=== PATIENT | male | born 1965 | race Caucasian/White ===

== ENCOUNTER → 2016-03-05 | Outpatient (CLI) | payer MEDICARE, MEDICAID ==
[2016-03-05 12:55] LABS: ALANINE AMINOTRANSFERASE 29 U/L (21-72); ALBUMIN 4.2 g/dL (3.5-5.0); ALKALINE PHOSPHATASE 57 U/L (38-126); AMYLASE 72 U/L (30-110); ANION GAP 15 (5-19); ASPARTATE AMINO TRANSFERASE 24 U/L (17-59); BILIRUBIN,TOTAL 0.5 mg/dL (0.2-1.3); BLOOD UREA NITROGEN 9 mg/dL (7-20); CALCIUM 9.5 mg/dL (8.4-10.2); CARBON DIOXIDE 24 mmol/L (22-30); CHLORIDE 103 mmol/L (98-107); CREATININE RESULT 0.87 mg/dL (0.52-1.25); GLUCOSE 75 mg/dL (75-110); LIPASE 122.8 U/L (23-300); POTASSIUM 4.5 mmol/L (3.6-5.0); SODIUM 142.4 mmol/L (137-145); TOTAL PROTEIN 7.2 g/dL (6.3-8.2)
== END ==
LOC: OD 10:31
PROVIDERS: ATTEND Physician Assistant Surgical
DX: R10.13 Epigastric pain (principal); K25.9 Gastric ulcer, unspecified as acute or chronic, without hemorrhage or perforation
CPT/HCPCS: 36415; 80053; 82150; 83690

== ENCOUNTER 2016-05-21 11:25 | Inpatient (IN) | payer MEDICARE, MEDICAID ==
[2016-05-21] MEDS ORDERED: ONDANSETRON 4 MG TAB.RAPDIS PO ONE (11:40)
--- NOTE | 2016-05-21 11:41 | ER Document Report ---
ED Medical Screen (RME) - General Stated Complaint: ABDOMINAL PAIN Notes: Patient complains of abdominal pain with vomiting and diarrhea for a couple of days. Denies fever. Has a history of gastric ulcers. Last vomited this morning at 10 AM. I have greeted and performed a rapid initial assessment of this patient. A comprehensive ED assessment and evaluation of the patient, analysis of test results and completion of the medical decision making process will be conducted by additional ED providers. TRAVEL OUTSIDE OF THE [place] IN LAST 30 DAYS: No - Related Data Allergies/Adverse Reactions: aripiprazole [From [employer]] Allergy (Severe, Verified 05/21/16 11:40) "uncontrollable muscle tremors" Past Medical History - Past Medical History Cardiac Medical History: Reports: Hx Hypertension Denies: Hx Heart Murmur Pulmonary Medical History: Endocrine Medical History: Reports: Hx Diabetes Mellitus Type 2 - Since gastric bypass has been able to stop all medications Renal/ Medical History: Reports: Hx Kidney Stones - LEFT , "passed" multiple, ESWL x 2, "laser" surgery x 1 GI Medical History: Reports: Hx Gastroesophageal Reflux Disease Musculoskeltal Medical History: Reports Hx Arthritis Skin Medical History: Reports Hx MRSA Psychiatric Medical History: Reports: Hx Bipolar Disorder, Hx Depression Traumatic Medical History: Reports: Hx Fractures - RT ankle 2010 Infectious Medical History: Past Surgical History: Reports: Hx Abdominal Surgery - Repair of complications from gastric bypass, Hx Appendectomy - 1975, Hx Bowel Surgery - bowel perforation 09/25, Hx Gastric Bypass Surgery - 02/19/13, Hx Orthopedic Surgery - Right below-knee amputation, Hx Tonsillectomy - 1978 - Immunizations Immunizations up to date: Yes Hx Diphtheria, Pertussis, Tetanus Vaccination: Yes Physical Exam - Vital signs Vitals: Temp Pulse Resp BP Pulse Ox 98.1 F 85 18 109/95 H 97 05/21/16 11:37 05/21/16 11:37 05/21/16 11:37 05/21/16 11:37 05/21/16 11:37 - Abdominal Tenderness: Tender - periumbilical area Notes: abd soft Course - Vital Signs Vital signs: Temp Pulse Resp BP Pulse Ox 98.1 F 85 18 109/95 H 97 05/21/16 11:37 05/21/16 11:37 05/21/16 11:37 05/21/16 11:37 05/21/16 11:37
[2016-05-21 12:29] LABS: HEMATOCRIT 43.8 % (37.9-51.0); HEMOGLOBIN 14.4 g/dL (13.5-17.0); HGB HCT DIFFERENCE -0.6; MEAN CORPUSCULAR VOLUME 79 fl (80-97); RED BLOOD COUNT 5.55 10^6/uL (4.35-5.55); RED CELL DISTRIBUTION WIDTH 17.8 % (11.5-14.0); WHITE BLOOD COUNT 22.7 10^3/uL (4.0-10.5)
[2016-05-21 12:35] LABS: APPEARANCE,URINE SLIGHTLY-CLOUDY; BILIRUBIN,URINE MODERATE (NEGATIVE); GLUCOSE, URINE NEGATIVE (NEGATIVE); KETONES,URINE 80 mg/dL (NEGATIVE); LEUKOCYTE ESTERASE,URINE NEGATIVE (NEGATIVE); NITRITE,URINE NEGATIVE (NEGATIVE); PROTEIN,URINE 100 mg/dL (NEGATIVE)
[2016-05-21 12:56] LABS: ALANINE AMINOTRANSFERASE 38 U/L (21-72); ALBUMIN 3.3 g/dL (3.5-5.0); ALKALINE PHOSPHATASE 134 U/L (38-126); ANION GAP 15 (5-19); ASPARTATE AMINO TRANSFERASE 26 U/L (17-59); BILIRUBIN,DIRECT 0.3 mg/dL (0.0-0.4); BILIRUBIN,TOTAL 0.9 mg/dL (0.2-1.3); BLOOD UREA NITROGEN 17 mg/dL (7-20); CALCIUM 9.4 mg/dL (8.4-10.2); CARBON DIOXIDE 26 mmol/L (22-30); CHLORIDE 99 mmol/L (98-107); CREATININE RESULT 1.01 mg/dL (0.52-1.25); GLUCOSE 131 mg/dL (75-110); LIPASE 70.6 U/L (23-300); POTASSIUM 4.1 mmol/L (3.6-5.0); TOTAL PROTEIN 6.4 g/dL (6.3-8.2)
[2016-05-21 13:01] LABS: ANISOCYTOSIS 2+; BAND NEUTROPHILS % (MANUAL) 3 % (3-5); BASOPHILS % (MANUAL) 0 % (0-2); EOSINOPHILS % (MANUAL) 0 % (0-6); HYPOCHROMASIA SLIGHT; LYMPHOCYTES % (MANUAL) 9 % (13-45); OVALOCYTES 2+; POIKILOCYTOSIS 2+; POLYCHROMASIA SLIGHT; TOTAL CELLS COUNTED 100
[2016-05-21] MEDS ORDERED: NORMAL SALINE 1000 ML 1,000 ML IV ONE ×2 (14:15→15:10)
[2016-05-21] MEDS ORDERED: FENTANYL CITRATE INJ/PF 100 MCG/2 ML AMPUL IV ONE (14:19)
--- NOTE | 2016-05-21 14:22 | ER Document Report ---
ED GI/ - General Chief Complaint: Abdominal Pain Stated Complaint: ABDOMINAL PAIN Mode of Arrival: Ambulatory Information source: Patient Notes: Patient presents complaining of abdominal pain that started yesterday and has persisted today. Patient states he's also had nausea, vomiting and diarrhea. Patient reports a previous history of perforated ulcer last year and states that his symptoms today feel similar. Patient reports nausea and vomiting 6 episodes today and diarrhea 6 episodes today. Patient denies any blood in his emesis or stool. Patient denies any fever or urinary symptoms. TRAVEL OUTSIDE OF THE [place] IN LAST 30 DAYS: No - HPI Patient complains to provider of: Abdominal pain, Diarrhea, Vomiting Onset: Yesterday Timing/Duration: Worse Quality of pain: Sharp Pain Level: 5 Location: Epigastric, Other - Periumbilical Associated symptoms: Diarrhea, Loss of appetite, Nausea, Vomiting. denies: Blood in emesis, Blood in stool, Chest pain, Constipation, Dysuria, Fever, Urinary hesitancy, Urinary frequency, Urinary retention, Urinary urgency Exacerbated by: Denies Relieved by: Denies Similar symptoms previously: Yes - perforated ulcer Recently seen / treated by doctor: No - Related Data Allergies/Adverse Reactions: [facility] Adverse Reaction (Severe, Verified 05/21/16 13:53) "uncontrollable muscle tremors" Home Medications: Current Home Medications Atenolol [Tenormin 50 mg Tablet] 50 mg PO DAILY 05/21/16 [History] Escitalopram Oxalate [Lexapro] 40 mg PO DAILY 05/21/16 [History] Furosemide [Lasix] 40 mg PO DAILY 05/21/16 [History] Gabapentin [Neurontin 300 mg Capsule] 600 mg PO TID 05/21/16 [History] Olanzapine [Zyprexa] 40 mg PO DAILY 05/21/16 [History] Omeprazole 40 mg PO DAILY 05/21/16 [History] Promethazine HCl [Phenergan 25 mg Tablet] 25 mg PO Q6 05/21/16 [History] Quetiapine Fumarate [Seroquel] 600 mg PO QHS 05/21/16 [History] Ropinirole HCl [Requip] 0.25 mg PO QID 05/21/16 [History] Sucralfate [Carafate 1 gm Tablet] 1 gm PO BID 05/21/16 [History] Tamsulosin HCl [Flomax] 0.4 mg PO BID 05/21/16 [History] Trazodone HCl [Desyrel] 300 mg PO QHS 05/21/16 [History] Past Medical History - General Information source: Patient - Social History Smoking Status: Never Smoker Chew tobacco use (# tins/day): No Frequency of alcohol use: None Drug Abuse: None Occupation: none Lives with: Alone Family History: CAD, Hypertension Patient has suicidal ideation: No Patient has homicidal ideation: No - Past Medical History Cardiac Medical History: Reports: Hx Hypertension Denies: Hx Heart Murmur Pulmonary Medical History: Endocrine Medical History: Reports: Hx Diabetes Mellitus Type 2 - Since gastric bypass has been able to stop all medications Renal/ Medical History: Reports: Hx Kidney Stones - LEFT , "passed" multiple, ESWL x 2, "laser" surgery x 1. Denies: Hx Peritoneal Dialysis GI Medical History: Reports: Hx Gastroesophageal Reflux Disease, Hx Ulcer Musculoskeltal Medical History: Reports Hx Arthritis Skin Medical History: Reports Hx MRSA Psychiatric Medical History: Reports: Hx Bipolar Disorder, Hx Depression Traumatic Medical History: Reports: Hx Fractures - RT ankle 2011 Infectious Medical History: Past Surgical History: Reports: Hx Abdominal Surgery - Repair of complications from gastric bypass, Hx Appendectomy - 1975, Hx Bowel Surgery - bowel perforation 09/25, Hx Gastric Bypass Surgery - 02/19/13, Hx Orthopedic Surgery - Right below-knee amputation, Hx Tonsillectomy - 1978 - Immunizations Immunizations up to date: Yes Hx Diphtheria, Pertussis, Tetanus Vaccination: Yes Hx Pneumococcal Vaccination: 03/03/11 Review of Systems - Review of Systems Constitutional: No symptoms reported. denies: Fever, Recent illness EENT: No symptoms reported Cardiovascular: No symptoms reported. denies: Chest pain, Dizziness Respiratory: No symptoms reported. denies: Cough, Short of breath Gastrointestinal: Abdominal pain, Diarrhea, Nausea, Vomiting, Poor appetite, Poor fluid intake. denies: Constipation, Blood streaked bowels, Black stools, Rectal bleeding Genitourinary: No symptoms reported. denies: Burning, Dysuria, Flank pain Male Genitourinary: No symptoms reported Musculoskeletal: No symptoms reported. denies: Back pain Skin: No symptoms reported Hematologic/Lymphatic: No symptoms reported Neurological/Psychological: No symptoms reported Physical Exam - Vital signs Vitals: Temp Pulse Resp BP Pulse Ox 98.1 F 85 18 109/95 H 97 05/21/16 11:37 05/21/16 11:37 05/21/16 11:37 05/21/16 11:37 05/21/16 11:37 - General General appearance: Appears well, Alert In distress: None - HEENT Head: Normocephalic, Atraumatic Eyes: Normal Conjunctiva: Normal Nasal: Normal Mouth/Lips: Normal Mucous membranes: Normal Neck: Normal, Supple. No: Lymphadenopathy - Respiratory Respiratory status: No respiratory distress Chest status: Nontender Breath sounds: Normal. No: Rales, Rhonchi, Stridor, Wheezing Chest palpation: Normal - Cardiovascular Rhythm: Regular Heart sounds: S1 appreciated, S2 appreciated Murmur: No - Abdominal Inspection: Other - Scar from previous gastric bypass, right lower quadrant scar Distension: No distension Bowel sounds: Normal Tenderness: Tender - Epigastric, periumbilical Organomegaly: No organomegaly - Back Back: Normal, Nontender. No: CVA tenderness, Vertebra tenderness - Extremities General upper extremity: Normal inspection, Normal strength General lower extremity: Normal strength, Other - Right BKA with prosthesis - Neurological Neuro grossly intact: Yes Cognition: Normal [place] Coma Scale Eye Opening: Spontaneous [place] Coma Scale Verbal: Oriented [place] Coma Scale Motor: Obeys Commands [place] Coma Scale Total: 15 - Psychological Associated symptoms: Normal affect, Normal mood - Skin Skin Temperature: Warm Skin Moisture: Dry Skin Color: Normal Course - Re-evaluation Re-evalutation: 05/21/16 14:[address] Marcelino regarding patient presentation, reviewed patient's diagnostics as well as previous medical history. Recommends CT abdomen and pelvis with oral and IV contrast if concerned about perforated ulcer. 05/21/16 15:05 Radiologist called stating that they noticed free air on abdominal x-ray film. 05/21/16 15:10 Consulted with general surgeon who will be down to see patient. Discussed plan for CT imaging, states patient may have a CAT scan with IV contrast only. Discussed antibiotic choice with Dr. Lozano who advises giving Invanz 1 g IV now. 05/21/16 15:15 Dr. Marcelino updated on patient status and plan of care. 05/21/16 15:51 Dr. Mora evaluated patient and agrees to accept patient to his services for admission. - Vital Signs Vital signs: Temp Pulse Resp BP Pulse Ox 98.1 F 85 20 104/56 L 95 05/21/16 11:37 05/21/16 11:37 05/21/16 17:02 05/21/16 17:02 05/21/16 17:02 - Laboratory Result Diagrams: 05/21/16 11:40 05/21/16 11:40 Laboratory results interpreted by me: 05/21/16 05/21/16 05/21/16 11:40 11:40 11:40 WBC 22.7 H MCV 79 L MCH 26.0 L RDW 17.8 H Seg Neuts % (Manual) 81 H Lymphocytes % (Manual) 9 L Abs Neuts (Manual) 19.1 H Abs Monocytes (Manual) 1.6 H Glucose 131 H Alkaline Phosphatase 134 H Creatine Kinase 22 L Albumin 3.3 L Urine Protein Urine Ketones Urine Bilirubin Urine Urobilinogen 05/21/16 11:45 WBC MCV MCH RDW Seg Neuts % (Manual) Lymphocytes % (Manual) Abs Neuts (Manual) Abs Monocytes (Manual) Glucose Alkaline Phosphatase Creatine Kinase Albumin Urine Protein 100 H Urine Ketones 80 H Urine Bilirubin MODERATE H Urine Urobilinogen 2.0 H 05/21/16 17:46 Labs- Entire Visit 05/21/16 05/21/16 05/21/16 11:40 11:40 11:40 WBC 22.7 H RBC 5.55 Hgb 14.4 Hct 43.8 MCV 79 L MCH 26.0 L MCHC 33.0 RDW 17.8 H Plt Count 302 Total Counted 100 Seg Neutrophils % Not Reportable Seg Neuts % (Manual) 81 H Band Neutrophils % 3 Lymphocytes % Not Reportable Lymphocytes % (Manual) 9 L Monocytes % Not Reportable Monocytes % (Manual) 7 Eosinophils % Not Reportable Eosinophils % (Manual) 0 Basophils % Not Reportable Basophils % (Manual) 0 Absolute Neutrophils Not Reportable Abs Neuts (Manual) 19.1 H Absolute Lymphocytes Not Reportable Abs Lymphs (Manual) 2.0 Absolute Monocytes Not Reportable Abs Monocytes (Manual) 1.6 H Absolute Eosinophils Not Reportable Absolute Eos (Manual) 0.0 Absolute Basophils Not Reportable Abs Basophils (Manual) 0.0 Platelet Comment ADEQUATE Polychromasia SLIGHT Hypochromasia SLIGHT Poikilocytosis 2+ Anisocytosis 2+ Ovalocytes 2+ Sodium 140.0 Potassium 4.1 Chloride 99 Carbon Dioxide 26 Anion Gap 15 BUN 17 Creatinine 1.01 Est GFR ( Amer) > 60 Est GFR (Non-Af Amer) > 60 Glucose 131 H Lactic Acid Calcium 9.4 Magnesium 1.7 Total Bilirubin 0.9 Direct Bilirubin 0.3 Indirect Bilirubin Not Reportable Neonat Total Bilirubin Not Reportable AST 26 ALT 38 Alkaline Phosphatase 134 H Creatine Kinase 22 L CK-MB (CK-2) Troponin I Total Protein 6.4 Albumin 3.3 L Lipase 70.6 Urine Color Urine Appearance Urine pH Ur Specific [place] Urine Protein Urine Glucose (UA) Urine Ketones Urine Blood Urine Nitrite Urine Bilirubin Urine Urobilinogen Ur Leukocyte Esterase Urine WBC (Auto) Urine RBC (Auto) U Hyaline Cast (Auto) Squamous Epi Cells Auto Urine Mucus (Auto) Urine Ascorbic Acid 05/21/16 05/21/16 05/21/16 11:40 11:45 14:30 WBC RBC Hgb Hct MCV MCH MCHC RDW Plt Count Total Counted Seg Neutrophils % Seg Neuts % (Manual) Band Neutrophils % Lymphocytes % Lymphocytes % (Manual) Monocytes % Monocytes % (Manual) Eosinophils % Eosinophils % (Manual) Basophils % Basophils % (Manual) Absolute Neutrophils Abs Neuts (Manual) Absolute Lymphocytes Abs Lymphs (Manual) Absolute Monocytes Abs Monocytes (Manual) Absolute Eosinophils Absolute Eos (Manual) Absolute Basophils Abs Basophils (Manual) Platelet Comment Polychromasia Hypochromasia Poikilocytosis Anisocytosis Ovalocytes Sodium Potassium Chloride Carbon Dioxide Anion Gap BUN Creatinine Est GFR ( Amer) Est GFR (Non-Af Amer) Glucose Lactic Acid 1.3 Calcium Magnesium Total Bilirubin Direct Bilirubin Indirect Bilirubin Neonat Total Bilirubin AST ALT Alkaline Phosphatase Creatine Kinase CK-MB (CK-2) < 0.22 Troponin I < 0.012 Total Protein Albumin Lipase Urine Color PEPE Urine Appearance SLIGHTLY-CLOUDY Urine pH 5.0 Ur Specific [place] 1.040 Urine Protein 100 H Urine Glucose (UA) NEGATIVE Urine Ketones 80 H Urine Blood NEGATIVE Urine Nitrite NEGATIVE Urine Bilirubin MODERATE H Urine Urobilinogen 2.0 H Ur Leukocyte Esterase NEGATIVE Urine WBC (Auto) 14 Urine RBC (Auto) 5 U Hyaline Cast (Auto) 5 Squamous Epi Cells Auto 2 Urine Mucus (Auto) MANY Urine Ascorbic Acid NEGATIVE - Diagnostic Test Radiology reviewed: Reports reviewed Discharge - Discharge Clinical Impression: Vomiting and diarrhea, Bowel perforation Abdominal pain Qualifiers: Abdominal location: unspecified location Qualified Code(s): R10.9 - Unspecified abdominal pain Condition: Stable Disposition: ADMITTED INPATIENT Admitting Provider: Surgicalist Unit Admitted: Surgical Floor
[2016-05-21] MEDS ORDERED: DIPHENHYDRAMINE HCL 50 MG/ML VIAL IV ONE (14:31)
[2016-05-21 15:00] LABS: MAGNESIUM 1.7 mg/dL (1.6-2.3)
[2016-05-21] MEDS ORDERED: HYDROMORPHONE HCL INJ/PF 2 MG/ML AMPULE IV ONE (15:08)
[2016-05-21] MEDS ORDERED: ONDANSETRON HCL INJ/PF 4 MG/2 ML SDV IV ONE (15:08)
[2016-05-21] MEDS ORDERED: ERTAPENEM SODIUM INJ 1 GM VIAL IV ONE (15:10)
[2016-05-21 15:13] LABS: CREATINE KINASE MB < 0.22 ng/mL (<4.55); TROPONIN I < 0.012 ng/mL
[2016-05-21] MEDS ORDERED: ONDANSETRON HCL INJ/PF 4 MG/2 ML SDV IV PRN (16:46)
[2016-05-21] MEDS ORDERED: NORMAL SALINE 500 ML IV PRN (16:46)
[2016-05-21] MEDS ORDERED: PANTOPRAZOLE SODIUM 40 MG VIAL IV SCH (17:00)
[2016-05-21] MEDS: MORPHINE SULFATE 10 MG/ML INJ IV PRN ×2 (17:15→20:06)
[2016-05-21] MEDS: NORMAL SALINE 100 ML with PANTOPRAZOLE SODIUM 80 MG IV PRN ×2 (17:41)
--- NOTE | 2016-05-21 17:58 | HISTORY AND PHYSICAL E ---
History and Physical NAME: YESSY ALMODOVAR : 1965 AGE: 51Y ADMITTED: 05/21/2016 ROOM: ED20 REASON FOR ADMISSION: Abdominal pain. HISTORY OF PRESENT ILLNESS: This 51-year-old male presented to the emergency room complaining of a 2-day history of epigastric and midabdominal pain that started 2 days ago. The patient has had nausea, vomiting and diarrhea x5 each day without fevers or chills. The patient reports a previous history of perforated ulcer last year and that his symptoms today feel similar. The patient reports no history of any blood in his stool or vomitus and no history of coffee ground vomitus. The patient was examined in the ER and found to have epigastric and midabdominal tenderness and white count was 22,000. Plain films showed free air under the diaphragm and because of the history of gastric bypass, a CT scan of the abdomen was ordered which also confirmed the free air in the abdomen. However, the patient is hemodynamically stable without tachycardia. He has no evidence of rebound or guarding and his tenderness is limited to the midabdomen. A surgical referral was made and the patient will be admitted to my service. PAST MEDICAL HISTORY: 1. History of hypertension. 2. History of diabetes mellitus type 2 which has been ameliorated because of the gastric bypass. 3. History of kidney stones that have been passed spontaneously. 4. Laser surgery. 5. ESWL x2. 6. The patient has a history of peritoneal dialysis. 7. History of arthritis. 8. History if bipolar disease and depression. 9. History of right ankle fractures. PAST SURGICAL HISTORY: Includes: 1. Complications from gastric bypass. 2. Appendectomy. 3. Bowel surgery. 4. Bowel perforation in August *------*. 5. Gastric bypass 02/19/2013. 6. Traumatic right below-knee amputation. 7. History of tonsillectomy in 1978. ALLERGIES: The patient has a history of allergy to ABILIFY where he has uncontrolled muscle tremors which were severe and verified 05/21/2016. The patient has a history of bipolar disorder and depression as well. REVIEW OF SYSTEMS: The patient has no symptoms referable to the constitutional, ENT, cardiovascular, or respiratory system. Gastrointestinal as in history of present illness. The patient denies any symptoms referable to the genitourinary, musculoskeletal, integumentary, lymphatic, endocrine or psychiatric systems. PHYSICAL EXAMINATION: GENERAL: A 51-year-old male who is fairly well-nourished, well-developed and in no acute distress. The patient is alert, awake, responsive and is a good historian. The patient is hemodynamically stable and is in no distress. VITAL SIGNS: Temp 98.1, pulse 85, respirations 18, blood pressure 109/95, pulse oximetry 97% on room air. HEENT: Head is normocephalic and atraumatic. PERRLA. EOMI. There is no conjunctival pallor or scleral icterus. Mucous membranes are moist and pink. NECK: Neck is supple without nodes, masses, thyroid, JVD or bruits. Trachea is midline. CHEST: Chest wall shows good excursions. Lungs are clear anteriorly with good entry bilaterally. CARDIOVASCULAR: Pulses regular without murmurs or gallops. ABDOMEN: Soft, flat with epigastric and upper abdominal mid-tenderness with minimal guarding in the upper abdomen, but no rebound. Remainder of his abdomen is benign with no peritoneal signs. There is also periumbilical tenderness. EXTREMITIES: Full range of motion. The patient has a right BKA prosthesis. IMPRESSION: Perforated peptic ulcer with pneumoperitoneum. PLAN: Given the fact that he is hemodynamically stable, in no acute distress and with minimal abdominal findings, we will choose to treat the patient conservatively with antibiotics, *------* drip, observation, pain medication and repeat labs and antibiotics. Should the patient not improve or worsen clinically, then exploratory laparotomy will be performed. DICTATING PHYSICIAN: SIMRAN LING M.D. [id number] Y#: [id number] ID: [id number] JOB#: [id number] ACCT: [id number] cc:SIMRAN LING M.D. >
[2016-05-21] MEDS ORDERED: LEVOFLOXACIN 750 MG/D5W RTU 750 MG/150 ML RTUPB IV SCH (18:00)
--- NOTE | 2016-05-21 18:28 | EKG REPORT ---
SEVERITY:- ABNORMAL ECG - SINUS RHYTHM LEFT VENTRICULAR HYPERTROPHY BORDERLINE T ABNORMALITIES, INFERIOR-LATERAL LEADS : Confirmed by: Cricket Pantoja MD 21-May-2016 18:28:14
[2016-05-21] MEDS: METRONIDAZOLE 500 MG/NS RTU 100 ML IV SCH (18:55)
[2016-05-21] MEDS: LEVOFLOXACIN 750 MG/D5W RTU 750 MG/150 ML RTUPB IV SCH (21:16)
[2016-05-22] MEDS: MORPHINE SULFATE 10 MG/ML INJ IV PRN ×7 (00:48→22:55)
[2016-05-22] MEDS: METRONIDAZOLE 500 MG/NS RTU 100 ML IV SCH ×4 (00:50→18:40)
[2016-05-22] MEDS: NORMAL SALINE 100 ML with PANTOPRAZOLE SODIUM 80 MG IV PRN ×6 (01:39→22:55)
[2016-05-22 06:47] LABS: ABSOLUTE LYMPHOCYTES (AUTO) 0.8 10^3/uL (0.5-4.7); ABSOLUTE MONOCYTES (AUTO) 0.8 10^3/uL (0.1-1.4); ABSOLUTE NEUT (AUTO) 11.2 10^3/uL (1.7-8.2); BASOPHILS % (AUTO) 0.2 % (0-2); HEMATOCRIT 36.3 % (37.9-51.0); HGB HCT DIFFERENCE 0.3; LYMPHOCYTES % (AUTO) 6.3 % (13-45); MEAN CORPUSCULAR HEMOGLOBIN 26.5 pg (27.0-33.4); MEAN CORPUSCULAR HGB CONC 33.7 g/dL (32.0-36.0); MEAN CORPUSCULAR VOLUME 79 fl (80-97); MONOCYTES % (AUTO) 6.3 % (3-13); RED BLOOD COUNT 4.61 10^6/uL (4.35-5.55); RED CELL DISTRIBUTION WIDTH 17.8 % (11.5-14.0); SEGMENTED NEUTROPHILS % (AUTO) 87.2 % (42-78); WHITE BLOOD COUNT 12.8 10^3/uL (4.0-10.5)
[2016-05-22 07:01] LABS: HEMOGLOBIN 12.2 g/dL (13.5-17.0)
[2016-05-22 07:12] LABS: ANION GAP 10 (5-19); BLOOD UREA NITROGEN 18 mg/dL (7-20); CALCIUM 8.4 mg/dL (8.4-10.2); CARBON DIOXIDE 23 mmol/L (22-30); CHLORIDE 107 mmol/L (98-107); CREATININE RESULT 0.81 mg/dL (0.52-1.25); GLUCOSE 100 mg/dL (75-110); POTASSIUM 4.1 mmol/L (3.6-5.0)
[2016-05-22] MEDS: ENOXAPARIN SODIUM INJ 40 MG/0.4 ML DISP.SYRIN SUBCUT SCH (08:34)
[2016-05-22] MEDS: LEVOFLOXACIN 750 MG/D5W RTU 750 MG/150 ML RTUPB IV SCH (21:15)
[2016-05-23] MEDS: METRONIDAZOLE 500 MG/NS RTU 100 ML IV SCH ×4 (00:08→19:00)
[2016-05-23] MEDS: MORPHINE SULFATE 10 MG/ML INJ IV PRN ×5 (02:25→19:05)
--- NOTE | 2016-05-23 09:28 | PDOC PROGRESS REPORT ---
Subjective Progress Note for:: 05/23/16 Subjective:: Still with subxiphoid the an epigastric abdominal pain. Physical Exam Vital Signs: Temp Pulse Resp BP Pulse Ox 98.2 F 66 16 118/68 96 05/23/16 07:48 05/23/16 07:48 05/23/16 07:48 05/23/16 07:48 05/23/16 07:48 Intake & Output 05/22/16 05/23/16 05/24/16 06:59 06:59 06:59 Intake Total 0 Output Total 250 700 Balance -250 -700 Weight 101.1 kg 101.4 kg General appearance: PRESENT: no acute distress, cooperative Respiratory exam: PRESENT: clear to auscultation jorge Cardiovascular exam: PRESENT: RRR GI/Abdominal exam: PRESENT: other - Soft, nondistended, epigastric and subxiphoid abdominal tenderness without peritoneal signs. Results Laboratory Results: 05/22/16 06:06 05/22/16 06:06 05/21/16 18:44 Nasophary (Mrsa Only) MRSA Surveillance Culture - Final MRSA RECOVERED Impressions: Acute Abdomen Series 05/21/16 14:19 IMPRESSION: There appears to be free air under the diaphragm on the right and possibly on the left concerning for perforated viscus. Further investigation warranted. Abdomen/Pelvis CT 05/21/16 15:14 IMPRESSION: 1. Significant amount of intraabdominal free air noted throughout the abdomen most notably in the upper abdomen. Postsurgical changes from prior Estella-en-Y gastric bypass noted. There appears to be few locules air in between in the smaller medial portion of the stomach and the lateral larger portion of the stomach at in the care appearing to connect with the small or portion of the stomach which is connected to the esophagus and small bowel. Question whether this represents a perforated ulcer in this region. 6 thickening of fluid seen in adjacent to the 2 portions of the stomach and as well as along the small bowel limb from the small gastric pouch likely representing either gastric contents or inflammatory fluid. 2. No other significant abnormality identified within the abdomen pelvis. Assessment & Plan - Diagnosis (1) Bowel perforation Is this a current diagnosis for this admission?: YesPlan: Likely at his gastrojejunal anastomosis from his Estella-en-Y gastric bypass in the remote past. Patient had perforation at this site last year which was repaired at [facility]. Patient is stable on the medical management at this time but the likely he will need the revision of his the gastric bypass in light of recurrent perforation. I have discussed his case with Dr. Fletcher at [facility] who has agreed to take him in transfer.
[2016-05-23] MEDS: ENOXAPARIN SODIUM INJ 40 MG/0.4 ML DISP.SYRIN SUBCUT SCH (09:47)
[2016-05-23] MEDS: NORMAL SALINE 100 ML with PANTOPRAZOLE SODIUM 80 MG IV PRN ×2 (09:48)
--- NOTE | 2016-05-23 10:00 | TRANSFER SUMMARY E ---
Transfer Summary NAME: YESSY ALMODOVAR : 1965 AGE: 51Y ADMITTED: 05/21/2016 TRANSFERRED: 05/23/2016 TRANSFER DIAGNOSIS: Perforated bowel, likely at gastrojejunal anastomosis. SECONDARY DIAGNOSES: 1. Hypertension. 2. Kidney stones. 3. Bipolar disease and depression. HOSPITAL COURSE: The patient was noted with free air on radiologic studies. CT scan demonstrated free fluid within the abdomen which tracks along the small bowel, connected to the gastric pouch and extraluminal air at the region of the gastrojejunal anastomosis, all consistent with probable perforation at his gastrojejunal anastomotic site. The patient was stable with no tachycardia, no peritoneal signs and he was managed medically with antibiotics and bowel rest and IV fluids and ppi drip. The patient remained stable. However, he had persistent pain and tenderness in the epigastric and the subxiphoid region. Discussions were held with [facility] concerning transfer. He had his last surgery at [facility] and it is a bariatric center. I have discussed the case with Dr. Fletcher who has agreed to take him in transfer. The patient is now being transferred to [facility] in stable condition. TRANSFER MEDICATIONS: 1. Lovenox 40 mg subcutaneous every morning. 2. Levofloxacin 750 mg daily. 3. Flagyl 500 mg every 6 hours. 4. Morphine 4 mg IV every 4 hours p.r.n. 5. Zofran 4 mg IV every 4 hours p.r.n. 6. Normal saline 100 mL/h intravenously. 7. Pantoprazole intravenous drip. DICTATING PHYSICIAN: SARINA SAEED M.D. [id number] Y#: [id number] ID: [id number] JOB#: [id number] ACCT: [id number] cc:SARINA SAEED M.D. > [facility]
[2016-05-23 15:57] VITALS: BP 108/71
== END 2016-05-23 19:45 | disposition short-term general hospital (02) | DRG 391 ==
LOC: ER 11:25 → EH 16:10 → UNDOADMIN 16:10 → EH 16:47 → 4S 18:17
PROVIDERS: ADMIT Surgery; ATTEND Surgery
DX: K21.9 Gastro-esophageal reflux disease without esophagitis (principal); K28.5 Chronic or unspecified gastrojejunal ulcer with perforation; I10 Essential (primary) hypertension; N20.0 Calculus of kidney; F31.9 Bipolar disorder, unspecified; E11.9 Type 2 diabetes mellitus without complications; M19.90 Unspecified osteoarthritis, unspecified site; B95.62 Methicillin resistant Staphylococcus aureus infection as the cause of diseases classified elsewhere; Z79.899 Other long term (current) drug therapy; Z98.84 Bariatric surgery status; Z89.511 Acquired absence of right leg below knee; Z82.49 Family history of ischemic heart disease and other diseases of the circulatory system
CPT/HCPCS: 36415; 74022; 74177; 80048; 80053; 81001; 82550; 82553; 83605; 83690; 83735; 84484; 85025; 87040; 93005; 93010; 96365; 96375; 99285; J1170; J1200; J1335; J1650; J1956; J2270; J2405; J3010; J7030; J7040; S0119; S0164

== ENCOUNTER 2016-06-26 10:21 | Inpatient (IN) | payer MEDICARE, MEDICAID ==
--- NOTE | 2016-06-26 10:53 | ER Document Report ---
ED Medical Screen (RME) - General Chief Complaint: Abdominal Pain Stated Complaint: VOMITING/DIRECT ADMIT Time seen by provider: 10:51 Mode of Arrival: Ambulatory Information source: Patient Notes: 51-year-old male sent by Dr. Hollie Lerner for direct admission to [facility] and he came to the emergency room because her no IMCU peds. His diagnosis intractable vomiting and upper abdominal made. I will put the orders and the patient is asking for nausea and pain medication. He looks dehydration. TRAVEL OUTSIDE OF THE [place] IN LAST 30 DAYS: No - Related Data Allergies/Adverse Reactions: aripiprazole [From [facility]] Adverse Reaction (Severe, Verified 05/21/16 13:53) "uncontrollable muscle tremors" Past Medical History - Past Medical History Cardiac Medical History: Reports: Hx Hypertension Denies: Hx Heart Murmur Pulmonary Medical History: Endocrine Medical History: Reports: Hx Diabetes Mellitus Type 2 - Since gastric bypass has been able to stop all medications Renal/ Medical History: Reports: Hx Kidney Stones - LEFT , "passed" multiple, ESWL x 2, "laser" surgery x 1. Denies: Hx Peritoneal Dialysis GI Medical History: Reports: Hx Gastroesophageal Reflux Disease, Hx Ulcer Musculoskeltal Medical History: Reports Hx Arthritis Skin Medical History: Reports Hx MRSA Psychiatric Medical History: Reports: Hx Bipolar Disorder, Hx Depression Traumatic Medical History: Reports: Hx Fractures - RT ankle 2010 Infectious Medical History: Past Surgical History: Reports: Hx Abdominal Surgery - Repair of complications from gastric bypass, Hx Appendectomy - 1975, Hx Bowel Surgery - bowel perforation 09/25, Hx Gastric Bypass Surgery - 02/19/13, Hx Orthopedic Surgery - Right below-knee amputation, Hx Tonsillectomy - 1978 - Immunizations Immunizations up to date: Yes Hx Diphtheria, Pertussis, Tetanus Vaccination: Yes Physical Exam - Vital signs Vitals: Temp Pulse Resp BP Pulse Ox 98.3 F 117 H 20 115/75 97 06/26/16 10:06/26/16 10:06/26/16 10:06/26/16 10:06/26/16 10:22 Course - Vital Signs Vital signs: Temp Pulse Resp BP Pulse Ox 98.3 F 117 H 20 115/75 97 06/26/16 10:06/26/16 10:06/26/16 10:06/26/16 10:22 06/26/16 10:22
[2016-06-26] MEDS ORDERED: POTASSI CL 40 MEQ/NS 1L 1,000 ML IV PRN ×2 (10:56→12:17)
[2016-06-26] MEDS ORDERED: ONDANSETRON HCL INJ/PF 4 MG/2 ML SDV IV ONE (10:57)
[2016-06-26] MEDS ORDERED: HYDROMORPHONE HCL INJ/PF 2 MG/ML AMPULE IV ONE (10:57)
[2016-06-26] MEDS ORDERED: NORMAL SALINE 1000 ML 500 ML IV ONE (10:58)
[2016-06-26 11:44] LABS: ABSOLUTE EOSINOPHILS # (AUTO) 0.1 10^3/uL (0.0-0.6); ABSOLUTE LYMPHOCYTES (AUTO) 2.3 10^3/uL (0.5-4.7); ABSOLUTE MONOCYTES (AUTO) 0.6 10^3/uL (0.1-1.4); ABSOLUTE NEUT (AUTO) 5.3 10^3/uL (1.7-8.2); BASOPHILS % (AUTO) 0.2 % (0-2); HEMATOCRIT 42.3 % (37.9-51.0); HEMOGLOBIN 14.2 g/dL (13.5-17.0); HGB HCT DIFFERENCE 0.3; LYMPHOCYTES % (AUTO) 27.9 % (13-45); MEAN CORPUSCULAR HEMOGLOBIN 26.3 pg (27.0-33.4); MEAN CORPUSCULAR HGB CONC 33.6 g/dL (32.0-36.0); MEAN CORPUSCULAR VOLUME 78 fl (80-97); MONOCYTES % (AUTO) 7.8 % (3-13); RED CELL DISTRIBUTION WIDTH 18.3 % (11.5-14.0); SEGMENTED NEUTROPHILS % (AUTO) 63.1 % (42-78); WHITE BLOOD COUNT 8.3 10^3/uL (4.0-10.5)
[2016-06-26 12:04] LABS: ALANINE AMINOTRANSFERASE 30 U/L (21-72); ALKALINE PHOSPHATASE 109 U/L (38-126); ANION GAP 12 (5-19); ASPARTATE AMINO TRANSFERASE 23 U/L (17-59); BILIRUBIN,DIRECT 0.1 mg/dL (0.0-0.4); BILIRUBIN,TOTAL 0.7 mg/dL (0.2-1.3); BLOOD UREA NITROGEN 7 mg/dL (7-20); CALCIUM 9.7 mg/dL (8.4-10.2); CARBON DIOXIDE 27 mmol/L (22-30); CHLORIDE 101 mmol/L (98-107); CREATININE RESULT 0.77 mg/dL (0.52-1.25); GLUCOSE 93 mg/dL (75-110); POTASSIUM 4.1 mmol/L (3.6-5.0); SODIUM 139.9 mmol/L (137-145); TOTAL PROTEIN 7.3 g/dL (6.3-8.2)
[2016-06-26] MEDS ORDERED: LIDOCAINE 2% VISCOUS SOLN 20 ML UDCUP PO ONE (12:06)
[2016-06-26] MEDS ORDERED: MAG HYDROX/AL HYDROX/SIMETH SUSP 30 ML UDCUP PO ONE (12:06)
--- NOTE | 2016-06-26 12:20 | ER Document Report ---
ED GI/ - General Time seen by provider: 12:00 Mode of Arrival: Ambulatory Information source: Patient TRAVEL OUTSIDE OF THE [place] IN LAST 30 DAYS: No - HPI Patient complains to provider of: Abdominal pain, Vomiting Onset: Other - see HPI note Quality of pain: Cramping Associated symptoms: Constipation, Nausea, Urinary retention, Vomiting Similar symptoms previously: Yes Recently seen / treated by doctor: Yes - Dr. Ledbetter <JOSE PATTERSON - Last Filed: 06/26/16 12:32> <LANDRY NEGRON - Last Filed: 06/26/16 13:37> - General Chief Complaint: Abdominal Pain Stated Complaint: VOMITING/DIRECT ADMIT Notes: Patient is a 51 year old male presenting from Dr. Ledbetter's office for a direct admit for IMCU. Patient is being seen in the emergency department due to a policy that states the ED sees patients for direct admit if there is no available rooms. Patient is being admitted for intractable vomiting and epigastric pain. Dr. Ledbetter sent over orders for this patient and they have been started here in the emergency department. Patient has a history of Gastric bypass surgery, diabetes mellitus, and bowel perforation x3. Patient has stopped taking his diabetic medications since losing weight from the gastric bypass surgery. The patient's last bowel perforation was 1 month ago and the patient was sent to [facility]; this was treated with medicine not surgery. Patient states his physicians would like to reverse his gastric bypass surgery within the next 6 months. Patient complains of vomiting, abdominal pain, a nausea but denies fever or diarrhea. Patient states he has not urinated or had a bowel movement in the past 3 days. Patient is allergic to aripiprazole. (JOSE PATTERSON) - Related Data Allergies/Adverse Reactions: aripiprazole [From Abili] Adverse Reaction (Severe, Verified 05/21/16 13:53) "uncontrollable muscle tremors" Past Medical History - General Information source: Patient - Social History Smoking Status: Unknown if Ever Smoked Family History: Reviewed & Not Pertinent, CAD, Hypertension - Past Medical History Cardiac Medical History: Reports: Hx Hypertension Pulmonary Medical History: Endocrine Medical History: Reports: Hx Diabetes Mellitus Type 2 - Since gastric bypass has been able to stop all medications Renal/ Medical History: Reports: Hx Kidney Stones - LEFT , "passed" multiple, ESWL x 2, "laser" surgery x 1 GI Medical History: Reports: Hx Gastroesophageal Reflux Disease, Hx Ulcer Musculoskeltal Medical History: Reports Hx Arthritis Skin Medical History: Reports Hx MRSA Psychiatric Medical History: Reports: Hx Bipolar Disorder, Hx Depression Traumatic Medical History: Reports: Hx Fractures - RT ankle 2010 Infectious Medical History: Past Surgical History: Reports: Hx Abdominal Surgery - Repair of complications from gastric bypass, Hx Appendectomy - 1975, Hx Bowel Surgery - bowel perforation 09/26/2015, May 2016, Hx Gastric Bypass Surgery - 02/19/13, Hx Orthopedic Surgery - Right below-knee amputation, Hx Tonsillectomy - 1978 - Immunizations Immunizations up to date: Yes Hx Diphtheria, Pertussis, Tetanus Vaccination: Yes Hx Pneumococcal Vaccination: 03/03/11 <JOSE PATTERSON - Last Filed: 06/26/16 12:32> Review of Systems - Review of Systems Constitutional: No symptoms reported EENT: No symptoms reported Cardiovascular: No symptoms reported Respiratory: No symptoms reported Gastrointestinal: See HPI, Abdominal pain, Nausea, Vomiting, Constipation Genitourinary: See HPI, Retention Male Genitourinary: No symptoms reported Musculoskeletal: No symptoms reported Skin: No symptoms reported Hematologic/Lymphatic: No symptoms reported Neurological/Psychological: No symptoms reported -: Yes All other systems reviewed and negative <JOSE PATTERSON - Last Filed: 06/26/16 12:32> Physical Exam - Vital signs Interpretation: Tachycardic - General General appearance: Appears well, Alert In distress: Mild - HEENT Head: Normocephalic, Atraumatic Eyes: Normal Pupils: PERRL Mucous membranes: Moist - Respiratory Respiratory status: No respiratory distress Chest status: Nontender Breath sounds: Normal Chest palpation: Normal - Cardiovascular Rhythm: Regular Heart sounds: Normal auscultation Murmur: No - Abdominal Inspection: Normal Distension: No distension Bowel sounds: Normal Tenderness: Tender - epigastric tenderness Organomegaly: No organomegaly - Back Back: Normal, Nontender - Extremities General upper extremity: Normal inspection, Normal ROM, Normal strength General lower extremity: Normal inspection, Normal ROM, Normal strength. No: Edema - Neurological Neuro grossly intact: Yes Cognition: Normal Orientation: AAOx4 Uzair Coma Scale Eye Opening: Spontaneous Ben[place] Coma Scale Verbal: Oriented Uzair Coma Scale Motor: Obeys Commands Benld Coma Scale Total: 15 Speech: Normal - Psychological Associated symptoms: Normal affect, Normal mood - Skin Skin Temperature: Warm Skin Moisture: Dry <JOSE PATTERSON - Last Filed: 06/26/16 12:32> <LANDRY NEGRON - Last Filed: 06/26/16 13:37> - Vital signs Vitals: Temp Pulse Resp BP Pulse Ox 98.3 F 117 H 20 115/75 97 06/26/16 10:22 06/26/16 10:22 06/26/16 10:22 06/26/16 10:22 06/26/16 10:22 Course - Laboratory Result Diagrams: 06/26/16 11:20 06/26/16 11:20 <JOSE PATTERSON - Last Filed: 06/26/16 12:32> - Laboratory Result Diagrams: 06/26/16 11:20 06/26/16 11:20 - Consults Dr. Rios Time consulted: 13:30 Consulted provider: will see as inpatient - He was informed of the normal renal function and dilute urine on this bipolar patient who is known to exaggerate and lie about his symptoms. His bed status was downgraded to a regular medical floor. <LANDRY NEGRON - Last Filed: 06/26/16 13:37> - Re-evaluation Re-evalutation: 06/26/16 13:36 This 51-year-old bipolar patient claims to have not urinated in 3 days. When the nurse to admit him with a catheter he was immediately able to urinate. His urine is dilute. His creatinine is normal. His BUN is low. 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 (LANDRY NEGRON) - Vital Signs Vital signs: Temp Pulse Resp BP Pulse Ox 98.3 F 117 H 20 115/75 97 06/26/16 10:22 06/26/16 10:22 06/26/16 10:22 06/26/16 10:22 06/26/16 10:22 - Laboratory Laboratory results interpreted by me: 06/26/16 06/26/16 11:20 12:44 MCV 78 L MCH 26.3 L RDW 18.3 H Urine Ascorbic Acid 40 H Discharge <JOSE PATTERSON - Last Filed: 06/26/16 12:32> - Discharge Admitting Provider: [facility] Unit Admitted: Medical Floor <LANDRY NEGRON - Last Filed: 06/26/16 13:37> - Discharge Clinical Impression: Abdominal pain, Epigastric pain Vomiting Qualifiers: Vomiting type: unspecified Vomiting Intractability: non-intractable Nausea presence: with nausea Qualified Code(s): R11.2 - Nausea with vomiting, unspecified Bipolar disorder Qualifiers: Active/Remission status: currently active Current bipolar episode type: depressed Current episode severity: mild Qualified Code(s): F31.31 - Bipolar disorder, current episode depressed, mild Condition: Stable Disposition: ADMITTED INPATIENT Scribe Attestation: 06/26/16 13:35 I personally performed the services described in the documentation, reviewed and edited the documentation which was dictated to the scribe in my presence, and it accurately records my words and actions. (LANDRY NEGRON) Scribe Documentation - Scribe Written by Scribe:: Jose Patterson 06/26/16 12:25 acting as scribe for :: Radhames <JOSE PATTERSON - Last Filed: 06/26/16 12:32>
[2016-06-26 13:06] LABS: APPEARANCE,URINE CLEAR; BILIRUBIN,URINE NEGATIVE (NEGATIVE); GLUCOSE, URINE NEGATIVE (NEGATIVE); KETONES,URINE NEGATIVE (NEGATIVE); LEUKOCYTE ESTERASE,URINE NEGATIVE (NEGATIVE); NITRITE,URINE NEGATIVE (NEGATIVE); PROTEIN,URINE NEGATIVE (NEGATIVE); URINE SPECIFIC GRAVITY 1.015; UROBILINOGEN,URINE NEGATIVE mg/dL (<2.0)
[2016-06-26] MEDS: HYDROMORPHONE HCL INJ/PF 2 MG/ML AMPULE IV PRN ×2 (17:42→23:36)
[2016-06-26] MEDS ORDERED: (PENDING PHARMACY ID) (Promethazine Hcl [Promethazine Hcl] 12.5 MG) PO PRN (21:48)
[2016-06-26] MEDS ORDERED: (PENDING PHARMACY ID) (Quetiapine Fumarate [Seroquel] 600 MG) PO SCH (22:00)
[2016-06-26] MEDS ORDERED: OLANZAPINE 40 MG PO SCH (22:00)
[2016-06-26] MEDS ORDERED: (PENDING PHARMACY ID) (Trazodone Hcl [Desyrel] 300 MG) PO SCH (22:00)
[2016-06-26] MEDS: PROMETHAZINE HCL 25 MG TABLET PO PRN (22:55)
[2016-06-26] MEDS: OLANZAPINE 5 MG TABLET PO SCH (23:41)
[2016-06-26] MEDS: SUCRALFATE SUSP 1 GM/10 ML UDCUP PO SCH (23:41)
[2016-06-26] MEDS: TRAZODONE HCL 50 MG TABLET PO SCH (23:41)
[2016-06-26] MEDS: ROPINIROLE HCL 0.25 MG TABLET PO SCH (23:41)
[2016-06-26] MEDS: QUETIAPINE FUMARATE 100 MG TABLET PO SCH (23:41)
[2016-06-27] MEDS: GABAPENTIN 300 MG CAPSULE PO SCH ×3 (06:08→22:38)
[2016-06-27] MEDS: PROMETHAZINE HCL 25 MG TABLET PO PRN ×3 (06:14→18:07)
[2016-06-27] MEDS: HYDROMORPHONE HCL INJ/PF 2 MG/ML AMPULE IV PRN ×3 (06:14→18:08)
[2016-06-27] MEDS ORDERED: (PENDING PHARMACY ID) (Escitalopram Oxalate [Lexapro] 40 MG) PO SCH (08:00)
[2016-06-27] MEDS: NORMAL SALINE 1000 ML 1,000 ML IV PRN (08:22)
[2016-06-27] MEDS: SUCRALFATE SUSP 1 GM/10 ML UDCUP PO SCH ×4 (08:24→21:53)
[2016-06-27] MEDS: ESCITALOPRAM OXALATE 10 MG TABLET PO SCH (08:24)
[2016-06-27] MEDS: ROPINIROLE HCL 0.25 MG TABLET PO SCH ×4 (12:13→22:38)
--- NOTE | 2016-06-27 20:51 | PDOC H&P ---
History of Present Illness Admission Date/PCP: 06/26/16 12:52 MERYL ORNELAS MD History of Present Illness: YESSY ALMODOVAR is a 51 year old male, he came to the office with complaint of persistent vomiting, upper abdominal pain he also said he has not had any urine for 4 days the initial plan was to admit him directly from the office to the hospital but there was no bed available, the nursing supervisor body assembly suggested that patient should be referred to the emergency room. In the emergency room was evaluated the blood work including hemogram and metabolic panel was normal. A CAT scan of the abdomen and pelvis was done with contrast and was negative for any acute pathology. He had gastric bypass surgery on he was recently seen by the bariatric surgeon and the plan is for him to undergo EGD next month and for possible revision of the gastric bypass procedure because it seems that he is having difficulty with his GI function. There is no apparent etiology for his symptoms at this time on is claimed that he has not had any urine in 4 days does not seems to be a realistic claim, there was no abdominal distention and the CAT scan did not show any distended urinary bladder and the blood work was essentially normal Past Medical History Cardiac Medical History: Reports: Hypertension Pulmonary Medical History: GI Medical History: Reports: Gastroesophageal Reflux Disease Musculoskeltal Medical History: Reports: Arthritis Psychiatric Medical History: Reports: Bipolar Disorder, Depression Hematology: Past Surgical History Past Surgical History: Reports: Appendectomy - 1975, Gastric Bypass Surgery - , Orthopedic Surgery - Right below-knee amputation, Tonsillectomy - 1978 Social History Smoking Status: Never Smoker Frequency of Alcohol Use: None Hx Recreational Drug Use: No Drugs: None Hx Prescription Drug Abuse: No Family History Family History: Reviewed & Not Pertinent, CAD, Hypertension Parental Family History Reviewed: Yes Children Family History Reviewed: Yes Sibling(s) Family History Reviewed.: Yes Medication/Allergy Home Medications: Escitalopram Oxalate [Lexapro] 40 mg PO QAM 06/26/16 Gabapentin [Neurontin 300 mg Capsule] 300 mg PO TID 06/26/16 Olanzapine [Zyprexa] 40 mg PO QHS 06/26/16 Promethazine HCl 12.5 mg PO Q6HP PRN 06/26/16 Quetiapine Fumarate [Seroquel] 600 mg PO QHS 06/26/16 Ropinirole HCl [Requip 0.25 mg Tablet] 0.25 mg PO QID 06/26/16 Sucralfate [Carafate Susp 1 gm/10 ml Udcup] 10 ml PO ACHS 06/26/16 Trazodone HCl [Desyrel] 300 mg PO QHS 06/26/16 Allergies/Adverse Reactions: aripiprazole [From Abiliy] Adverse Reaction (Severe, Verified 05/21/16 13:53) "uncontrollable muscle tremors" Review of Systems Constitutional: ABSENT: chills, fever(s), headache(s), weight gain, weight loss Eyes: ABSENT: visual disturbances Ears: ABSENT: hearing changes Cardiovascular: ABSENT: chest pain, dyspnea on exertion, edema, orthropnea, palpitations Respiratory: ABSENT: cough, hemoptysis Gastrointestinal: PRESENT: abdominal pain, vomiting Genitourinary: ABSENT: dysuria, hematuria Musculoskeletal: ABSENT: joint swelling Integumentary: ABSENT: rash, wounds Neurological: ABSENT: abnormal gait, abnormal speech, confusion, dizziness, focal weakness, syncope Psychiatric: ABSENT: anxiety, depression, homidical ideation, suicidal ideation Endocrine: ABSENT: cold intolerance, heat intolerance, menstrual abnormalities, polydipsia, polyuria Hematologic/Lymphatic: ABSENT: easy bleeding, easy bruising, lymphadenopathy Physical Exam Vital Signs: Temp Pulse Resp BP Pulse Ox 98.2 F 53 L 18 140/87 H 99 06/27/16 16:02 06/27/16 16:02 06/27/16 16:02 06/27/16 16:02 06/27/16 16:02 Intake & Output 06/26/16 06/27/16 06/28/16 06:59 06:59 06:59 Intake Total 1600 Output Total 750 800 Balance 850 -800 Weight 94.8 kg General appearance: PRESENT: no acute distress, well-developed, well-nourished Head exam: PRESENT: atraumatic, normocephalic Eye exam: PRESENT: conjunctiva pink, EOMI, PERRLA Ear exam: PRESENT: normal external ear exam Mouth exam: PRESENT: moist, tongue midline Neck exam: PRESENT: full ROM Cardiovascular exam: PRESENT: RRR, +S1, +S2 Vascular exam: PRESENT: normal capillary refill GI/Abdominal exam: PRESENT: normal bowel sounds, soft Rectal exam: PRESENT: deferred Neurological exam: PRESENT: alert, awake, oriented to person, oriented to place , oriented to time, oriented to situation, CN II-XII grossly intact Psychiatric exam: PRESENT: appropriate affect, normal mood Skin exam: PRESENT: dry, intact, warm Results Impressions: Chest X-Ray 06/26/16 10:54 IMPRESSION: NO SIGNIFICANT RADIOGRAPHIC FINDING IN THE CHEST. KUB X-Ray 06/26/16 10:54 IMPRESSION: Nonspecific bowel gas pattern, mild generalized gaseous distension. Abdomen/Pelvis CT 06/27/16 00:00 IMPRESSION: SURGICAL CHANGES. SMALL CORTICAL CYST IN THE RIGHT KIDNEY. OTHERWISE NO SIGNIFICANT OR ACUTE FINDING IN THE ABDOMEN OR PELVIS ON CT SCAN WITH IV CONTRAST. Assessment & Plan - Diagnosis (1) Intractable vomiting Qualifiers: Vomiting type: unspecified Nausea presence: with nausea Qualified Code(s): R11.2 - Nausea with vomiting, unspecified Is this a current diagnosis for this admission?: YesPlan: CT scan of the abdomen and pelvis was negative there is no explanation for the symptoms is manifesting, he has a history of gastric bypass, he was supposed to see the surgeon in [place] on the plan is for upper endoscopy and if there is a lesion he may have the gastric bypass revised (2) Bipolar disorder Qualifiers: Active/Remission status: currently active Current bipolar episode type : mixed Current episode severity: severe Psychotic features: without psychotic features Qualified Code(s): F31.63 - Bipolar disorder, current episode mixed, severe, without psychotic features Is this a current diagnosis for this admission?: Yes (3) gastric bypass surgery status post Is this a current diagnosis for this admission?: Yes
[2016-06-27] MEDS: QUETIAPINE FUMARATE 100 MG TABLET PO SCH (22:38)
[2016-06-27] MEDS: TRAZODONE HCL 50 MG TABLET PO SCH (22:38)
[2016-06-27] MEDS: OLANZAPINE 5 MG TABLET PO SCH (22:38)
[2016-06-28] MEDS: HYDROMORPHONE HCL INJ/PF 2 MG/ML AMPULE IV PRN ×3 (01:00→13:19)
[2016-06-28] MEDS: PROMETHAZINE HCL 25 MG TABLET PO PRN ×3 (01:00→13:18)
[2016-06-28] MEDS: GABAPENTIN 300 MG CAPSULE PO SCH ×2 (06:09→13:19)
[2016-06-28] MEDS: NORMAL SALINE 1000 ML 1,000 ML IV PRN (06:11)
[2016-06-28] MEDS: SUCRALFATE SUSP 1 GM/10 ML UDCUP PO SCH ×3 (09:38→17:36)
[2016-06-28] MEDS: ESCITALOPRAM OXALATE 10 MG TABLET PO SCH (09:39)
[2016-06-28] MEDS: ROPINIROLE HCL 0.25 MG TABLET PO SCH ×3 (09:39→17:36)
--- NOTE | 2016-06-28 19:06 | PDOC DISCHARGE SUMMARY ---
General - Admit/Disc Date/PCP Admission Date/Primary Care Provider: 06/26/16 12:52 MERYL ORNELAS MD Discharge Date: 06/28/16 - Discharge Diagnosis (1) Intractable vomiting Is this a current diagnosis for this admission?: Yes (2) Bipolar disorder Is this a current diagnosis for this admission?: Yes (3) gastric bypass surgery status post Is this a current diagnosis for this admission?: Yes - Additional Information Home Medications: RX: Escitalopram Oxalate [Lexapro] 40 mg PO QAM 06/26/16 RX: Gabapentin [Neurontin 300 mg Capsule] 300 mg PO TID 06/26/16 RX: Olanzapine [Zyprexa] 40 mg PO QHS 06/26/16 RX: Promethazine HCl 12.5 mg PO Q6HP PRN 06/26/16 RX: Quetiapine Fumarate [Seroquel] 600 mg PO QHS 06/26/16 RX: Ropinirole HCl [Requip 0.25 mg Tablet] 0.25 mg PO QID 06/26/16 RX: Sucralfate [Carafate Susp 1 gm/10 ml Udcup] 10 ml PO ACHS 06/26/16 RX: Trazodone HCl [Desyrel] 300 mg PO QHS 06/26/16 History of Present Illness History of Present Illness: YESSY ALMODOVAR is a 51 year old male, he came to the office with complaint of persistent vomiting, upper abdominal pain he also said he has not had any urine for 4 days the initial plan was to admit him directly from the office to the hospital but there was no bed available, the nursing blast furnace auxiliaries supervisor suggested that patient should be referred to the emergency room. In the emergency room was evaluated the blood work including hemogram and metabolic panel was normal. A CAT scan of the abdomen and pelvis was done with contrast and was negative for any acute pathology. He had gastric bypass surgery on he was recently seen by the bariatric surgeon and the plan is for him to undergo EGD next month and for possible revision of the gastric bypass procedure because it seems that he is having difficulty with his GI function. There is no apparent etiology for his symptoms at this time on is claimed that he has not had any urine in 4 days does not seems to be a realistic claim, there was no abdominal distention and the CAT scan did not show any distended urinary bladder and the blood work was essentially normal Hospital Course Hospital Course: Patient was admitted for observation because of intractable vomiting he was treated with IV fluid, there was no witnessed vomiting in the hospital he also had adequate urinary output and he had very good bowel movement Physical Exam Vital Signs: Temp Pulse Resp BP Pulse Ox 98.0 F 80 16 137/94 H 100 06/28/16 15:24 06/28/16 15:24 06/28/16 15:24 06/28/16 15:24 06/28/16 15:24 Intake & Output 06/27/16 06/28/16 06/29/16 06:59 06:59 06:59 Intake Total 1600 1912 1424 Output Total 750 2200 200 Balance 850 -288 1224 Weight 94.8 kg General appearance: PRESENT: no acute distress, well-developed, well-nourished Head exam: PRESENT: atraumatic, normocephalic Eye exam: PRESENT: conjunctiva pink, EOMI, PERRLA. ABSENT: scleral icterus Ear exam: PRESENT: normal external ear exam Mouth exam: PRESENT: moist, tongue midline Neck exam: PRESENT: full ROM Cardiovascular exam: PRESENT: RRR, +S1, +S2 Vascular exam: PRESENT: normal capillary refill GI/Abdominal exam: PRESENT: normal bowel sounds, soft Rectal exam: PRESENT: deferred Extremities exam: PRESENT: right BKA Neurological exam: PRESENT: alert, awake, oriented to person, oriented to place , oriented to time, oriented to situation, CN II-XII grossly intact Psychiatric exam: PRESENT: appropriate affect, normal mood Skin exam: PRESENT: dry, intact, warm Results Laboratory Results: 06/26/16 20:06 Nasophary (Mrsa Only) MRSA Culture - Final MRSA RECOVERED Impressions: Chest X-Ray 06/26/16 10:54 IMPRESSION: NO SIGNIFICANT RADIOGRAPHIC FINDING IN THE CHEST. KUB X-Ray 06/26/16 10:54 IMPRESSION: Nonspecific bowel gas pattern, mild generalized gaseous distension. Abdomen/Pelvis CT 06/27/16 00:00 IMPRESSION: SURGICAL CHANGES. SMALL CORTICAL CYST IN THE RIGHT KIDNEY. OTHERWISE NO SIGNIFICANT OR ACUTE FINDING IN THE ABDOMEN OR PELVIS ON CT SCAN WITH IV CONTRAST.
[2016-06-28 19:25] VITALS: BP 117/78
== END 2016-06-28 20:01 | disposition home or self-care (01) | DRG 392 ==
LOC: ER 10:21 → UNDOADMIN 12:52 → INTOOBSV 12:52 → EH 12:52 → OBSVTOIN 12:52 → EH 15:39 → 3W 15:39 → EH 06-28 18:29 → 3W 06-28 18:29 → UNDODISIN 06-28 20:01
PROVIDERS: ADMIT Internal Medicine; ATTEND Internal Medicine
DX: R11.2 Nausea with vomiting, unspecified (principal); F31.63 Bipolar disorder, current episode mixed, severe, without psychotic features; Q61.01 Congenital single renal cyst; B95.62 Methicillin resistant Staphylococcus aureus infection as the cause of diseases classified elsewhere; I10 Essential (primary) hypertension; K21.9 Gastro-esophageal reflux disease without esophagitis; M19.90 Unspecified osteoarthritis, unspecified site; E11.9 Type 2 diabetes mellitus without complications; E86.0 Dehydration; Z98.84 Bariatric surgery status; Z79.899 Other long term (current) drug therapy; Z89.511 Acquired absence of right leg below knee; Z82.49 Family history of ischemic heart disease and other diseases of the circulatory system; Z88.8 Allergy status to other drugs, medicaments and biological substances
CPT/HCPCS: 36415; 71020; 74000; 74177; 80053; 81001; 85025; 87040; 87070; 87086; G0378; J1170; J2405; J3480; J3490; J7030

== ENCOUNTER 2016-07-11 16:25 | Observation (INO) | payer MEDICAID, MEDICARE ==
[2016-07-11] MEDS ORDERED: PANTOPRAZOLE SODIUM 40 MG VIAL IV PRN (18:07)
[2016-07-11] MEDS ORDERED: PANTOPRAZOLE SODIUM 40 MG VIAL IV ONE (18:07)
[2016-07-11] MEDS ORDERED: HYDROMORPHONE HCL INJ/PF 2 MG/ML AMPULE IV ONE ×3 (18:08→21:44)
[2016-07-11] MEDS ORDERED: ONDANSETRON HCL INJ/PF 4 MG/2 ML SDV IV ONE ×2 (18:08→19:24)
--- NOTE | 2016-07-11 18:09 | ER Document Report ---
ED Medical Screen (RME) - General Mode of Arrival: Ambulatory Information source: Patient TRAVEL OUTSIDE OF THE [place] IN LAST 30 DAYS: No - HPI Patient complains to provider of: blood in vomit <JORGE L JUNG - Last Filed: 07/11/16 18:43> <DAVID NI - Last Filed: 07/11/16 21:03> - General Chief Complaint: Vomiting Stated Complaint: blood in vmoit Time Seen by Provider: 07/11/16 18:03 Notes: Patient presents with complaints of blood in vomit. Patient reports his stomach started hurting around midnight and started vomiting this morning, his last three emesis had bright red blood. Patient denies dizziness and lightheadedness. Patient states he has had some chest pain secondary to vomiting , is pale, and has had some epigastric abdominal pain. Patient states he has vomited blood before due to an ulcer. Patient is on Protonix, denies blood thinners. hx of gastric bypass surgery (JORGE L JUNG) - Related Data Allergies/Adverse Reactions: aripiprazole [From Abili] Adverse Reaction (Severe, Verified 07/11/16 18:06) "uncontrollable muscle tremors" Past Medical History - General Information source: Patient - Social History Cigarette use (# per day): No Chew tobacco use (# tins/day): No Frequency of alcohol use: None Drug Abuse: None - Past Medical History Cardiac Medical History: Reports: Hx Hypertension Denies: Hx Heart Murmur Pulmonary Medical History: Endocrine Medical History: Reports: Hx Diabetes Mellitus Type 2 - Since gastric bypass has been able to stop all medications Renal/ Medical History: Reports: Hx Kidney Stones - LEFT , "passed" multiple, ESWL x 2, "laser" surgery x 1. Denies: Hx Peritoneal Dialysis GI Medical History: Reports: Hx Gastroesophageal Reflux Disease, Hx Ulcer Musculoskeltal Medical History: Reports Hx Arthritis Skin Medical History: Reports Hx MRSA Psychiatric Medical History: Reports: Hx Bipolar Disorder, Hx Depression Traumatic Medical History: Reports: Hx Fractures - RT ankle 2010 Infectious Medical History: Past Surgical History: Reports: Hx Abdominal Surgery - Repair of complications from gastric bypass, Hx Appendectomy - 1975, Hx Bowel Surgery - bowel perforation 09/26/2015, May 2016, Hx Gastric Bypass Surgery - 02/19/13, Hx Orthopedic Surgery - Right below-knee amputation, Hx Tonsillectomy - 1978 - Immunizations Immunizations up to date: Yes Hx Diphtheria, Pertussis, Tetanus Vaccination: Yes <JORGE L JUNG - Last Filed: 07/11/16 18:43> Review of Systems - Review of Systems Gastrointestinal: Blood in vomit <JORGE L JUNG - Last Filed: 07/11/16 18:43> Physical Exam - Respiratory Respiratory status: No respiratory distress - Skin Skin Color: Pale <JORGE L JUNG - Last Filed: 07/11/16 18:43> Course - Laboratory Result Diagrams: 07/11/16 18:20 07/11/16 18:20 <DAVID NI - Last Filed: 07/11/16 21:03> - Vital Signs Vital signs: Temp Pulse Resp BP Pulse Ox 98.3 F 90 19 135/99 H 100 07/11/16 16:38 07/11/16 16:38 07/11/16 16:38 07/11/16 16:38 07/11/16 16:38 - Laboratory Laboratory results interpreted by me: 07/11/16 07/11/16 07/11/16 18:20 18:20 18:20 Hgb 11.1 L Hct 33.7 L MCV 76 L MCH 24.9 L RDW 16.6 H APTT 37.8 H Sodium 136.4 L BUN 6 L Scribe Documentation - Scribe Written by Phillip:: phillip Molina, 07/11/16, 2186 acting as scribe for :: Myranda <JORGE L JUNG - Last Filed: 07/11/16 18:43>
[2016-07-11 18:55] LABS: ABSOLUTE EOSINOPHILS # (AUTO) 0.1 10^3/uL (0.0-0.6); ABSOLUTE LYMPHOCYTES (AUTO) 2.6 10^3/uL (0.5-4.7); ABSOLUTE MONOCYTES (AUTO) 0.4 10^3/uL (0.1-1.4); ABSOLUTE NEUT (AUTO) 3.5 10^3/uL (1.7-8.2); BASOPHILS % (AUTO) 0.5 % (0-2); EOSINOPHILS % (AUTO) 1.8 % (0-6); HEMATOCRIT 33.7 % (37.9-51.0); HEMOGLOBIN 11.1 g/dL (13.5-17.0); HGB HCT DIFFERENCE -0.4; LYMPHOCYTES % (AUTO) 39.3 % (13-45); MEAN CORPUSCULAR HEMOGLOBIN 24.9 pg (27.0-33.4); MEAN CORPUSCULAR HGB CONC 32.9 g/dL (32.0-36.0); MEAN CORPUSCULAR VOLUME 76 fl (80-97); MONOCYTES % (AUTO) 6.1 % (3-13); RED BLOOD COUNT 4.45 10^6/uL (4.35-5.55); RED CELL DISTRIBUTION WIDTH 16.6 % (11.5-14.0); SEGMENTED NEUTROPHILS % (AUTO) 52.3 % (42-78); WHITE BLOOD COUNT 6.7 10^3/uL (4.0-10.5)
[2016-07-11 19:01] LABS: PROTHROMBIN TIME 13.9 SEC (11.4-15.4)
[2016-07-11 19:02] LABS: PARTIAL THROMBOPLASTIN TIME 37.8 SEC (23.5-35.8)
[2016-07-11 19:15] LABS: ALANINE AMINOTRANSFERASE 31 U/L (21-72); ALBUMIN 3.6 g/dL (3.5-5.0); ALKALINE PHOSPHATASE 117 U/L (38-126); ANION GAP 8 (5-19); ASPARTATE AMINO TRANSFERASE 25 U/L (17-59); BILIRUBIN,DIRECT 0.4 mg/dL (0.0-0.4); BILIRUBIN,TOTAL 0.6 mg/dL (0.2-1.3); BLOOD UREA NITROGEN 6 mg/dL (7-20); CALCIUM 9.7 mg/dL (8.4-10.2); CARBON DIOXIDE 26 mmol/L (22-30); CHLORIDE 102 mmol/L (98-107); CREATININE RESULT 0.83 mg/dL (0.52-1.25); GLUCOSE 91 mg/dL (75-110); POTASSIUM 4.5 mmol/L (3.6-5.0); SODIUM 136.4 mmol/L (137-145); TOTAL PROTEIN 7.2 g/dL (6.3-8.2)
[2016-07-11] MEDS ORDERED: PROMETHAZINE HCL 25 MG SUPP.RECT PR ONE (21:43)
[2016-07-11] MEDS ORDERED: NORMAL SALINE 1000 ML 1,000 ML IV ONE (21:45)
--- NOTE | 2016-07-11 21:47 | ER Document Report ---
ED GI/ - General Mode of Arrival: Ambulatory Information source: Patient TRAVEL OUTSIDE OF THE [place] IN LAST 30 DAYS: No - HPI Patient complains to provider of: Abdominal pain, Vomiting - hematemesis Onset: Other - last night Location: Epigastric Associated symptoms: Other - see notes above <YASMEEN AMTHIS - Last Filed: 07/11/16 21:42> <LANDRY NEGRON - Last Filed: 07/11/16 22:33> - General Chief Complaint: Vomiting Stated Complaint: THROWING UP BLOOD Time Seen by Provider: 07/11/16 18:03 Notes: 51 year old male with history of gastric bypass surgery, bleeding GI ulcers, and type II diabetes mellitus presents to the ED complaining of epigastric abdominal pain that started at 00:00 this morning and hematemesis that started at 1200 this afternoon. Patient reports that he has had 3 episodes of vomiting today with blood "mixed in". Patient denies drinking anything red in color or noticing any blood in his stool. Patient last vomited at 1930. Patient denies diarrhea or lightheadedness. Patient is currently taking Protonix, but denies any blood thinning medication. Patient was admitted in May 2015 secondary to GI bleed. (YASMEEN MATHIS) - Related Data Allergies/Adverse Reactions: aripiprazole [From [facility]] Adverse Reaction (Severe, Verified 07/11/16 18:06) "uncontrollable muscle tremors" Past Medical History - General Information source: Patient - Social History Smoking Status: Never Smoker Cigarette use (# per day): No Chew tobacco use (# tins/day): No Frequency of alcohol use: None Drug Abuse: None Family History: CAD, Hypertension Patient has suicidal ideation: No Patient has homicidal ideation: No - Past Medical History Cardiac Medical History: Reports: Hx Hypertension Pulmonary Medical History: Endocrine Medical History: Reports: Hx Diabetes Mellitus Type 2 - Since gastric bypass has been able to stop all medications Renal/ Medical History: Reports: Hx Kidney Stones - LEFT , "passed" multiple, ESWL x 2, "laser" surgery x 1 GI Medical History: Reports: Hx Gastroesophageal Reflux Disease, Hx Ulcer Musculoskeltal Medical History: Reports Hx Arthritis Skin Medical History: Reports Hx MRSA Psychiatric Medical History: Reports: Hx Bipolar Disorder, Hx Depression Traumatic Medical History: Reports: Hx Fractures - RT ankle 2011 Infectious Medical History: Past Surgical History: Reports: Hx Abdominal Surgery - Repair of complications from gastric bypass, Hx Appendectomy - 1975, Hx Bowel Surgery - bowel perforation 09/26/2015, May 2016, Hx Gastric Bypass Surgery - 02/19/13, Hx Orthopedic Surgery - Right below-knee amputation, Hx Tonsillectomy - 1978 - Immunizations Immunizations up to date: Yes Hx Diphtheria, Pertussis, Tetanus Vaccination: Yes Hx Pneumococcal Vaccination: 03/03/11 <YASMEEN MATHIS - Last Filed: 07/11/16 21:42> Review of Systems - Review of Systems Constitutional: No symptoms reported EENT: No symptoms reported Cardiovascular: No symptoms reported. denies: Lightheaded Respiratory: No symptoms reported Gastrointestinal: See HPI, Abdominal pain - epigastric, Vomiting, Blood in vomit. denies: Diarrhea, Black stools, Rectal bleeding Genitourinary: No symptoms reported Male Genitourinary: No symptoms reported Musculoskeletal: No symptoms reported Skin: No symptoms reported Hematologic/Lymphatic: No symptoms reported Neurological/Psychological: No symptoms reported -: Yes All other systems reviewed and negative <YASMEEN MATHIS - Last Filed: 07/11/16 21:42> Physical Exam - General General appearance: Alert In distress: None - HEENT Head: Normocephalic, Atraumatic Eyes: Normal Extraocular movements intact: Yes Pupils: PERRL - Respiratory Respiratory status: No respiratory distress Breath sounds: Normal - Cardiovascular Rhythm: Regular Heart sounds: Normal auscultation - Abdominal Inspection: Normal Distension: No distension Bowel sounds: Normal Tenderness: Tender - epigastric tenderness to palpation - Rectal Tenderness: No Stool: Heme negative Hemorrhoids: None - Back Back: Normal - Extremities General upper extremity: Normal inspection, Normal ROM General lower extremity: Normal ROM. No: Normal inspection - right BKA - Neurological Neuro grossly intact: Yes - Psychological Associated symptoms: Normal affect, Normal mood - Skin Skin Temperature: Warm Skin Moisture: Dry Skin Color: Normal <YASMEEN MATHIS - Last Filed: 07/11/16 21:42> - Rectal Stool: Heme positive, See lab result. No: Heme negative, Black, Bloody <LANDRY NEGRON - Last Filed: 07/11/16 22:33> - Vital signs Vitals: Temp Pulse Resp BP Pulse Ox 98.3 F 90 19 135/99 H 100 07/11/16 16:38 07/11/16 16:38 07/11/16 16:38 07/11/16 16:38 07/11/16 16:38 Course - Laboratory Result Diagrams: 07/11/16 18:20 07/11/16 18:20 <YASMEEN MATHIS - Last Filed: 07/11/16 21:42> - Laboratory Result Diagrams: 07/11/16 18:20 07/11/16 18:20 - Diagnostic Test Radiology reviewed: Image reviewed, Reports reviewed - Chest x-ray is unremarkable and there is no free air under the diaphragm - Consults Dr. Ornelas Time consulted: 22:30 Consulted provider: will see as inpatient <LANDRY NEGRON - Last Filed: 07/11/16 22:33> - Re-evaluation Re-evalutation: 07/11/16 22:32 The patient'S hemoglobin is 11.1 today, it was 14.22 weeks ago. His stool did test heme positive. (LANDRY NEGRON) - Vital Signs Vital signs: Temp Pulse Resp BP Pulse Ox 98.3 F 90 18 131/99 H 98 07/11/16 16:38 07/11/16 16:38 07/11/16 22:01 07/11/16 22:01 07/11/16 22:01 - Laboratory Laboratory results interpreted by me: 07/11/16 07/11/16 07/11/16 18:20 18:20 18:20 Hgb 11.1 L Hct 33.7 L MCV 76 L MCH 24.9 L RDW 16.6 H APTT 37.8 H Sodium 136.4 L BUN 6 L Discharge <YASMEEN MATHIS - Last Filed: 07/11/16 21:42> - Discharge Admitting Provider: Gabriel Unit Admitted: Telemetry <LANDRY NEGRON - Last Filed: 07/11/16 22:33> - Discharge Clinical Impression: Hematemesis/vomiting blood Qualifiers: Nausea presence: with nausea Qualified Code(s): K92.0 - Hematemesis Abdominal pain Qualifiers: Abdominal location: epigastric Qualified Code(s): R10.13 - Epigastric pain Referrals: MERYL ORNELAS MD [Primary Care Provider] - Follow up as needed Scribe Attestation: 07/11/16 22:31 I personally performed the services described in the documentation, reviewed and edited the documentation which was dictated to the scribe in my presence, and it accurately records my words and actions. (LANDRY NEGRON) Scribe Documentation - Scribe Written by Scribe:: Nina Marcum, 07/11/2016 2150 acting as scribe for :: Radhames <YASMEEN MATHIS - Last Filed: 07/11/16 21:42>
[2016-07-11 23:07] LABS: APPEARANCE,URINE CLEAR; BILIRUBIN,URINE NEGATIVE (NEGATIVE); GLUCOSE, URINE NEGATIVE (NEGATIVE); KETONES,URINE NEGATIVE (NEGATIVE); LEUKOCYTE ESTERASE,URINE NEGATIVE (NEGATIVE); NITRITE,URINE NEGATIVE (NEGATIVE); PROTEIN,URINE NEGATIVE (NEGATIVE); URINE SPECIFIC GRAVITY 1.008; UROBILINOGEN,URINE NEGATIVE mg/dL (<2.0)
[2016-07-12] MEDS: PROMETHAZINE HCL 25 MG TABLET PO PRN ×4 (03:01→21:09)
[2016-07-12] MEDS: HYDROMORPHONE HCL INJ/PF 2 MG/ML AMPULE IV PRN ×4 (03:01→21:09)
[2016-07-12 06:09] LABS: ABSOLUTE EOSINOPHILS # (AUTO) 0.1 10^3/uL (0.0-0.6); ABSOLUTE MONOCYTES (AUTO) 0.4 10^3/uL (0.1-1.4); BASOPHILS % (AUTO) 0.7 % (0-2); EOSINOPHILS % (AUTO) 2.5 % (0-6); HEMATOCRIT 29.6 % (37.9-51.0); HGB HCT DIFFERENCE 0.4; LYMPHOCYTES % (AUTO) 44.1 % (13-45); MEAN CORPUSCULAR HEMOGLOBIN 25.5 pg (27.0-33.4); MEAN CORPUSCULAR HGB CONC 33.8 g/dL (32.0-36.0); MEAN CORPUSCULAR VOLUME 76 fl (80-97); MONOCYTES % (AUTO) 8.1 % (3-13); RED BLOOD COUNT 3.91 10^6/uL (4.35-5.55); SEGMENTED NEUTROPHILS % (AUTO) 44.6 % (42-78); WHITE BLOOD COUNT 4.6 10^3/uL (4.0-10.5)
[2016-07-12 06:24] LABS: ANION GAP 7 (5-19); BLOOD UREA NITROGEN 5 mg/dL (7-20); CARBON DIOXIDE 25 mmol/L (22-30); CHLORIDE 104 mmol/L (98-107); CREATININE RESULT 0.86 mg/dL (0.52-1.25); GLUCOSE 79 mg/dL (75-110); POTASSIUM 4.3 mmol/L (3.6-5.0); SODIUM 135.9 mmol/L (137-145)
[2016-07-12] MEDS: SUCRALFATE SUSP 1 GM/10 ML UDCUP PO SCH ×4 (07:58→21:09)
[2016-07-12] MEDS: ESCITALOPRAM OXALATE 10 MG TABLET PO SCH (09:31)
[2016-07-12] MEDS: GABAPENTIN 300 MG CAPSULE PO SCH ×3 (09:31→17:20)
[2016-07-12] MEDS: ROPINIROLE HCL 0.25 MG TABLET PO SCH ×4 (10:19→21:09)
[2016-07-12 12:53] LABS: HEMATOCRIT 32.9 % (37.9-51.0); HEMOGLOBIN 10.9 g/dL (13.5-17.0); HGB HCT DIFFERENCE -0.2; MEAN CORPUSCULAR HEMOGLOBIN 25.1 pg (27.0-33.4); MEAN CORPUSCULAR HGB CONC 33.2 g/dL (32.0-36.0); MEAN CORPUSCULAR VOLUME 75 fl (80-97); RED BLOOD COUNT 4.36 10^6/uL (4.35-5.55); RED CELL DISTRIBUTION WIDTH 16.3 % (11.5-14.0); WHITE BLOOD COUNT 5.6 10^3/uL (4.0-10.5)
[2016-07-12] MEDS ORDERED: LANSOPRAZOLE 30 MG TAB.RAP.DR PO ONE (17:00)
--- NOTE | 2016-07-12 18:17 | PDOC H&P ---
History of Present Illness Admission Date/PCP: 07/12/16 02:02 MERYL ORNELAS MD History of Present Illness: YESSY ALMODOVAR is a 51 year old male, he came to the office because he said he vomited blood, he is status post gastric bypass surgery, he has a history of anastomotic ulcer and he has had episode of GI bleed in the past because of these findings he was advised to go to emergency room for evaluation because I could not admit him directly into the hospital because no bed was immediately available at the time. In the emergency room he was evaluated the hemogram revealed hemoglobin of 11 but is a change from previous hemogram when it was 14. Because of these findings ED physician is suggesting that patient needed to be admitted to the hospital. Past Medical History Cardiac Medical History: Reports: Hypertension Pulmonary Medical History: Endocrine Medical History: Reports: Diabetes Mellitus Type 2 - Since gastric bypass has been able to stop all medications GI Medical History: Reports: Gastroesophageal Reflux Disease Musculoskeltal Medical History: Reports: Arthritis Psychiatric Medical History: Reports: Bipolar Disorder, Depression Hematology: Past Surgical History Past Surgical History: Reports: Appendectomy - 1975, Gastric Bypass Surgery - , Orthopedic Surgery - Right below-knee amputation, Tonsillectomy - 1978 Social History Smoking Status: Never Smoker Frequency of Alcohol Use: None Hx Recreational Drug Use: No Drugs: None Hx Prescription Drug Abuse: No - Advance Directive Resuscitation Status: Full Code Family History Family History: CAD, Hypertension Parental Family History Reviewed: Yes Children Family History Reviewed: Yes Sibling(s) Family History Reviewed.: Yes Medication/Allergy Home Medications: Escitalopram Oxalate [Lexapro] 40 mg PO QAM 06/26/16 Gabapentin [Neurontin 300 mg Capsule] 300 mg PO TID 06/26/16 Olanzapine [Zyprexa] 40 mg PO QHS 06/26/16 Promethazine HCl 12.5 mg PO Q6HP PRN 06/26/16 Quetiapine Fumarate [Seroquel] 600 mg PO QHS 06/26/16 Ropinirole HCl [Requip 0.25 mg Tablet] 0.25 mg PO QID 06/26/16 Sucralfate [Carafate Susp 1 gm/10 ml Udcup] 10 ml PO ACHS 06/26/16 Multivitamin [Multivitamins] 1 tab PO DAILY 05/12/17 Pantoprazole Sodium [Protonix] 40 mg PO BID 07/12/16 Trazodone HCl [Desyrel] 200 mg PO QHS 07/12/16 Allergies/Adverse Reactions: aripiprazole [From [facility]] Adverse Reaction (Severe, Verified 07/11/16 18:06) "uncontrollable muscle tremors" Review of Systems Constitutional: ABSENT: chills, fever(s), headache(s), weight gain, weight loss Eyes: ABSENT: visual disturbances Ears: ABSENT: hearing changes Cardiovascular: ABSENT: chest pain, dyspnea on exertion, edema, orthropnea, palpitations Respiratory: ABSENT: cough, hemoptysis Gastrointestinal: PRESENT: abdominal pain, hematemesis Genitourinary: ABSENT: dysuria, hematuria Musculoskeletal: ABSENT: joint swelling Integumentary: ABSENT: rash, wounds Neurological: ABSENT: abnormal gait, abnormal speech, confusion, dizziness, focal weakness, syncope Psychiatric: ABSENT: anxiety, depression, homidical ideation, suicidal ideation Endocrine: ABSENT: cold intolerance, heat intolerance, menstrual abnormalities, polydipsia, polyuria Hematologic/Lymphatic: ABSENT: easy bleeding, easy bruising, lymphadenopathy Physical Exam Vital Signs: Temp Pulse Resp BP Pulse Ox 97.2 F 74 17 132/100 H 99 07/12/16 10:57 07/12/16 15:20 07/12/16 15:20 07/12/16 15:20 07/12/16 15:20 Intake & Output 07/11/16 07/12/16 07/13/16 06:59 06:59 06:59 Intake Total 0 600 Output Total 0 1150 Balance 0 -550 General appearance: PRESENT: no acute distress, well-developed, well-nourished Head exam: PRESENT: atraumatic, normocephalic Eye exam: PRESENT: conjunctiva pink, EOMI, PERRLA Ear exam: PRESENT: normal external ear exam Mouth exam: PRESENT: moist, tongue midline Neck exam: PRESENT: full ROM Respiratory exam: PRESENT: clear to auscultation jorge Cardiovascular exam: PRESENT: RRR, +S1, +S2 Vascular exam: PRESENT: normal capillary refill GI/Abdominal exam: PRESENT: normal bowel sounds, soft Rectal exam: PRESENT: deferred Neurological exam: PRESENT: alert, awake, oriented to person, oriented to place , oriented to time, oriented to situation, CN II-XII grossly intact Psychiatric exam: PRESENT: appropriate affect, normal mood Skin exam: PRESENT: dry, intact, warm. ABSENT: cyanosis, rash Results Laboratory Results: 07/12/16 12:33 07/12/16 05:32 07/12/16 07/12/16 07/12/16 05:32 05:32 12:33 WBC 4.6 5.6 RBC 3.91 L 4.36 Hgb 10.0 L 10.9 L Hct 29.6 L 32.9 L MCV 76 L 75 L MCH 25.5 L 25.1 L MCHC 33.8 33.2 RDW 16.0 H 16.3 H Plt Count 311 323 Seg Neutrophils % 44.6 Lymphocytes % 44.1 Monocytes % 8.1 Eosinophils % 2.5 Basophils % 0.7 Absolute Neutrophils 2.0 Absolute Lymphocytes 2.0 Absolute Monocytes 0.4 Absolute Eosinophils 0.1 Absolute Basophils 0.0 Sodium 135.9 L Potassium 4.3 Chloride 104 Carbon Dioxide 25 Anion Gap 7 BUN 5 L Creatinine 0.86 Est GFR ( Amer) > 60 Est GFR (Non-Af Amer) > 60 Glucose 79 Calcium 9.0 Impressions: Chest X-Ray 07/11/16 18:07 IMPRESSION: No acute findings. Assessment & Plan - Diagnosis (1) Hematemesis Qualifiers: Nausea presence: with nausea Qualified Code(s): K92.0 - Hematemesis ; R11.0 - Nausea Is this a current diagnosis for this admission?: YesPlan: Patient is admitted to the hospital for observation , follow-up hemogram, there is no active GI bleed at this time and there is no indication for blood transfusion at this time (2) gastric bypass surgery status post Is this a current diagnosis for this admission?: Yes
--- NOTE | 2016-07-12 18:33 | PDOC PROGRESS REPORT ---
Subjective Progress Note for:: 07/12/16 Subjective:: He was seen by the bedside ,the hemoglobin is dropping, he probably need EGD before discharge, unfortunately no GI physician is on-call Physical Exam Vital Signs: Temp Pulse Resp BP Pulse Ox 97.2 F 74 17 132/100 H 99 07/12/16 10:57 07/12/16 15:20 07/12/16 15:20 07/12/16 15:20 07/12/16 15:20 Intake & Output 07/11/16 07/12/16 07/13/16 06:59 06:59 06:59 Intake Total 0 600 Output Total 0 1150 Balance 0 -550 General appearance: PRESENT: no acute distress Head exam: PRESENT: atraumatic, normocephalic Neck exam: PRESENT: full ROM Respiratory exam: PRESENT: clear to auscultation jorge Cardiovascular exam: PRESENT: RRR, +S1, +S2 Vascular exam: PRESENT: normal capillary refill GI/Abdominal exam: PRESENT: normal bowel sounds, soft Rectal exam: PRESENT: deferred Neurological exam: PRESENT: alert, awake, oriented to person, oriented to place , oriented to time, oriented to situation, CN II-XII grossly intact Psychiatric exam: PRESENT: appropriate affect, normal mood Skin exam: PRESENT: dry, intact, warm. ABSENT: cyanosis, rash Results Laboratory Results: 07/12/16 12:33 07/12/16 05:32 07/12/16 07/12/16 07/12/16 05:32 05:32 12:33 WBC 4.6 5.6 RBC 3.91 L 4.36 Hgb 10.0 L 10.9 L Hct 29.6 L 32.9 L MCV 76 L 75 L MCH 25.5 L 25.1 L MCHC 33.8 33.2 RDW 16.0 H 16.3 H Plt Count 311 323 Seg Neutrophils % 44.6 Lymphocytes % 44.1 Monocytes % 8.1 Eosinophils % 2.5 Basophils % 0.7 Absolute Neutrophils 2.0 Absolute Lymphocytes 2.0 Absolute Monocytes 0.4 Absolute Eosinophils 0.1 Absolute Basophils 0.0 Sodium 135.9 L Potassium 4.3 Chloride 104 Carbon Dioxide 25 Anion Gap 7 BUN 5 L Creatinine 0.86 Est GFR ( Amer) > 60 Est GFR (Non-Af Amer) > 60 Glucose 79 Calcium 9.0 Impressions: Chest X-Ray 05/11/17 18:07 IMPRESSION: No acute findings. Assessment & Plan - Diagnosis (1) Hematemesis Qualifiers: Nausea presence: with nausea Qualified Code(s): K92.0 - Hematemesis Is this a current diagnosis for this admission?: Yes (2) gastric bypass surgery status post Is this a current diagnosis for this admission?: Yes
[2016-07-12] MEDS: OLANZAPINE 5 MG TABLET PO SCH (21:09)
[2016-07-12] MEDS: QUETIAPINE FUMARATE 100 MG TABLET PO SCH (21:09)
[2016-07-12] MEDS: TRAZODONE HCL 50 MG TABLET PO SCH (21:19)
[2016-07-12] MEDS ORDERED: PANTOPRAZOLE SODIUM 40 MG VIAL IV SCH (22:00)
[2016-07-13] MEDS: PROMETHAZINE HCL 25 MG TABLET PO PRN ×3 (06:19→19:33)
[2016-07-13] MEDS: HYDROMORPHONE HCL INJ/PF 2 MG/ML AMPULE IV PRN ×3 (06:19→19:32)
[2016-07-13] MEDS: SUCRALFATE SUSP 1 GM/10 ML UDCUP PO SCH ×4 (09:58→21:00)
[2016-07-13] MEDS: ESCITALOPRAM OXALATE 10 MG TABLET PO SCH (09:59)
[2016-07-13] MEDS: LANSOPRAZOLE 30 MG TAB.RAP.DR PO SCH ×2 (09:59→15:45)
[2016-07-13] MEDS: GABAPENTIN 300 MG CAPSULE PO SCH ×3 (09:59→17:19)
[2016-07-13] MEDS: ROPINIROLE HCL 0.25 MG TABLET PO SCH ×4 (10:00→21:00)
--- NOTE | 2016-07-13 13:49 | PDOC PROGRESS REPORT ---
Subjective Progress Note for:: 07/13/16 Subjective:: Patient was admitted because of hematemesis, he has not had any episode of hematemesis since admission, the hemoglobin has been decreasing since admission , he was admitted for observation but he stated that he would like to have the upper endoscopy done before discharge because if he is to have the upper endoscopy done outpatient, it would be too expensive for him, financially cannot afford it is to presently on clear liquid diet Physical Exam Vital Signs: Temp Pulse Resp BP Pulse Ox 97.5 F 106 H 18 104/81 99 07/13/16 12:44 07/13/16 12:44 07/13/16 12:44 07/13/16 12:44 07/13/16 12:44 Intake & Output 07/12/16 07/13/16 07/14/16 06:59 06:59 06:59 Intake Total 0 1200 Output Total 0 2175 Balance 0 -975 General appearance: PRESENT: no acute distress Eye exam: PRESENT: PERRLA Respiratory exam: PRESENT: clear to auscultation jorge Cardiovascular exam: PRESENT: +S1, +S2 GI/Abdominal exam: PRESENT: soft Neurological exam: PRESENT: alert, CN II-XII grossly intact Results Laboratory Results: 07/12/16 12:33 07/12/16 05:32 Impressions: Chest X-Ray 07/11/16 18:07 IMPRESSION: No acute findings. Assessment & Plan - Diagnosis (1) Hematemesis Qualifiers: Nausea presence: with nausea Qualified Code(s): K92.0 - Hematemesis Is this a current diagnosis for this admission?: Yes (2) gastric bypass surgery status post Is this a current diagnosis for this admission?: Yes - Plan Summary Plan Summary: Continue present treatment
[2016-07-13 14:19] LABS: ABSOLUTE EOSINOPHILS # (AUTO) 0.1 10^3/uL (0.0-0.6); ABSOLUTE LYMPHOCYTES (AUTO) 2.1 10^3/uL (0.5-4.7); ABSOLUTE MONOCYTES (AUTO) 0.3 10^3/uL (0.1-1.4); BASOPHILS % (AUTO) 0.3 % (0-2); EOSINOPHILS % (AUTO) 1.7 % (0-6); HEMATOCRIT 36.1 % (37.9-51.0); HEMOGLOBIN 11.7 g/dL (13.5-17.0); LYMPHOCYTES % (AUTO) 31.5 % (13-45); MEAN CORPUSCULAR HEMOGLOBIN 24.9 pg (27.0-33.4); MEAN CORPUSCULAR HGB CONC 32.5 g/dL (32.0-36.0); MEAN CORPUSCULAR VOLUME 77 fl (80-97); MONOCYTES % (AUTO) 5.1 % (3-13); RED BLOOD COUNT 4.71 10^6/uL (4.35-5.55); RED CELL DISTRIBUTION WIDTH 16.3 % (11.5-14.0); SEGMENTED NEUTROPHILS % (AUTO) 61.4 % (42-78); WHITE BLOOD COUNT 6.5 10^3/uL (4.0-10.5)
[2016-07-13] MEDS: DIPHENOXYLATE HCL/ATROP SULF 2.5-0.025 MG TABLET PO PRN (17:20)
[2016-07-13] MEDS: QUETIAPINE FUMARATE 100 MG TABLET PO SCH (21:00)
[2016-07-13] MEDS: OLANZAPINE 5 MG TABLET PO SCH (21:00)
[2016-07-13] MEDS: TRAZODONE HCL 50 MG TABLET PO SCH (21:00)
[2016-07-14] MEDS: HYDROMORPHONE HCL INJ/PF 2 MG/ML AMPULE IV PRN ×4 (04:35→22:09)
[2016-07-14] MEDS: PROMETHAZINE HCL 25 MG TABLET PO PRN ×2 (04:35→22:09)
[2016-07-14] MEDS: LANSOPRAZOLE 30 MG TAB.RAP.DR PO SCH ×2 (08:32→16:32)
[2016-07-14] MEDS: ROPINIROLE HCL 0.25 MG TABLET PO SCH ×4 (08:32→21:00)
[2016-07-14] MEDS: GABAPENTIN 300 MG CAPSULE PO SCH ×3 (08:32→18:08)
[2016-07-14] MEDS: DIPHENOXYLATE HCL/ATROP SULF 2.5-0.025 MG TABLET PO PRN ×3 (08:32→20:55)
[2016-07-14] MEDS: SUCRALFATE SUSP 1 GM/10 ML UDCUP PO SCH ×4 (08:32→21:01)
[2016-07-14] MEDS: ESCITALOPRAM OXALATE 10 MG TABLET PO SCH (08:33)
[2016-07-14] MEDS: ONDANSETRON HCL INJ/PF 4 MG/2 ML SDV IV PRN ×2 (10:13→16:32)
--- NOTE | 2016-07-14 14:41 | PDOC PROGRESS REPORT ---
Subjective Progress Note for:: 07/14/16 Subjective:: Patient was admitted because of hematemesis, he has not had any episode of hematemesis since admission, the hemoglobin has been decreasing since admission , he was admitted for observation but he stated that he would like to have the upper endoscopy done before discharge because if he is to have the upper endoscopy done outpatient, it would be too expensive for him, financially cannot afford it is to presently on clear liquid diet. The diet will be advanced to regular solid, there is no GI track service person over the weekend I explained this to him on he was brought in for observation Physical Exam Vital Signs: Temp Pulse Resp BP Pulse Ox 97.3 F 87 18 118/74 100 07/14/16 11:06 07/14/16 11:06 07/14/16 11:06 07/14/16 11:06 07/14/16 11:06 Intake & Output 07/13/16 07/14/16 07/15/16 06:59 06:59 06:59 Intake Total 1200 2154 Output Total 2175 2865 Balance -975 -711 General appearance: PRESENT: no acute distress, well-developed, well-nourished Head exam: PRESENT: atraumatic, normocephalic Eye exam: PRESENT: conjunctiva pink, EOMI, PERRLA. ABSENT: scleral icterus Ear exam: PRESENT: normal external ear exam Mouth exam: PRESENT: moist, tongue midline Neck exam: PRESENT: full ROM Cardiovascular exam: PRESENT: RRR, +S1, +S2 Pulses: PRESENT: normal dorsalis pedis pul, +2 pedal pulses bilateral Vascular exam: PRESENT: normal capillary refill GI/Abdominal exam: PRESENT: normal bowel sounds, soft Rectal exam: PRESENT: deferred Neurological exam: PRESENT: alert, awake, oriented to person, oriented to place , oriented to time, oriented to situation, CN II-XII grossly intact. ABSENT: motor sensory deficit Psychiatric exam: PRESENT: appropriate affect, normal mood Skin exam: PRESENT: dry, intact, warm Results Laboratory Results: 07/13/16 14:10 07/12/16 05:32 07/12/16 02:15 Nasophary (Mrsa Only) MRSA Surveillance Culture - Final MRSA RECOVERED Impressions: Chest X-Ray 07/11/16 18:07 IMPRESSION: No acute findings. Assessment & Plan - Diagnosis (1) Hematemesis Qualifiers: Nausea presence: with nausea Qualified Code(s): K92.0 - Hematemesis Is this a current diagnosis for this admission?: Yes (2) gastric bypass surgery status post Is this a current diagnosis for this admission?: Yes
[2016-07-14] MEDS: QUETIAPINE FUMARATE 100 MG TABLET PO SCH (21:00)
[2016-07-14] MEDS: TRAZODONE HCL 50 MG TABLET PO SCH (21:00)
[2016-07-14] MEDS: OLANZAPINE 5 MG TABLET PO SCH (21:01)
[2016-07-15] MEDS: PROMETHAZINE HCL 25 MG TABLET PO PRN (04:11)
[2016-07-15] MEDS: HYDROMORPHONE HCL INJ/PF 2 MG/ML AMPULE IV PRN ×3 (04:12→16:20)
--- NOTE | 2016-07-15 09:49 | Physician Advisory Note ---
Physician Advisor ProgressNote .: [facility] medical record for this patient. Physician Advisor Statement: Possible documentation opportunities if attending agrees: 1. "possible anemia of acute blood loss due to GI bleeding, suspected from ____ " [recurrent anastomotic ulcer related to prior gastric bypass?] - Hgb 11 (was 14 on 06/26/2016) 2. "mild hyponatremia, likely due to " 3. "Medical necessity": see below. 4. 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 Please also document each day the potential clinical problems you are concerned could occur if pt not kept in hospital for tx at this time. (These points are rosenbaum - if present in each note, attending's status decision should be sufficiently supported.) Discussion: 51yo male w/ chronic co-morbidities including gastric bypass 2012 w/repair of complications, bowel perf surgery 08/2105, adm for bleeding anastomotic GI ulcer 2015, DM-2, Rt BKA, HTN, kidney stones, bipolar dep - presented 07/11 PM to ED w/06/05 epigastric abd pain, hematemesis (+) HR 90->71, RR19-25, BP 135/99, WBC 6.7, Hgb 11.1 (was 14.2 on 06/26/2016), Na 136.4, BUN 6, Cr 0.83, glc 91, hemoccult (+) Attending ordered Status: This Medicare pt came in w/nausea & hematemesis, 3 unit drop in Hgb, Hem+ stool , but not actively bleeding at time of arrival. Appropriate to bring in as Outpt Obs. On day 2, attending documented need for EGD before d/c, but no GI information assurance at the time - therefore the 2nd MN appears to be due to delay of care, which is not a reason to make pt Inpt. That AM, pt's Hgb was significantly lower than before, but on re-check that day, it was nearly as high as it was at first, which was reassuring. On day 3, 07/13, pt without further hematemesis, abd soft, tolerating clear liquids. Still hyponatremic, but attending has not commented on this to indicate whether this concerns him or is a non-concern. No GI dr to do EGD, pt wanting EGD before d/c rather than going home first - this MN also appears to be delay of care/patient convenience, which is not a reason [facility] will cover Inpt status. - However, on 07/13, after consistently having a HR 60s-70s with BP almost exclusively 130s/90 until that point, pt developed a persistent tachycardia of 90s-120s, with recurrent drops in BP, to the 90s/100s/60s-70s, repeatedly. If this vital sign instability concerned attending, & this concern was documented with what it might indicate clinically, it could be a valid clinical reason to make pt Inpt status at that point. On 07/14, pt with no hematemesis or melena since arrival, Hgb back in the 11s without transfusion, attending advancing diet & appearing to be awaiting GI That night appears to be "delay of care" again, not a reason for Inpt status. A pt wanting to stay longer for a convenience/financial reason is not sufficient to make a pt Inpt status - BUT, if this same pt evidences or develops a valid clinical reason to need ongoing hospital tx & monitoring in hospital setting that is medically reasonable & necessary to protect pt's health , safety, & medical condition, they may still qualify for Inpt status. In this case, the attending must make a very convincing argument for Inpt status need for that to be considered appropriate for this stay. As documentation stands at present, appears appropriate only for outpt status. Thanks for your help with documentation accuracy/specificity improvement! Nimco Aviles MD [facility] Physician Advisor, Fellow of Hospital Medicine
[2016-07-15] MEDS: GABAPENTIN 300 MG CAPSULE PO SCH ×3 (10:01→17:17)
[2016-07-15] MEDS: SUCRALFATE SUSP 1 GM/10 ML UDCUP PO SCH ×3 (10:01→16:20)
[2016-07-15] MEDS: ESCITALOPRAM OXALATE 10 MG TABLET PO SCH (10:01)
[2016-07-15] MEDS: LANSOPRAZOLE 30 MG TAB.RAP.DR PO SCH ×2 (10:02→16:20)
[2016-07-15] MEDS: ROPINIROLE HCL 0.25 MG TABLET PO SCH ×3 (10:07→17:17)
[2016-07-15] MEDS ORDERED: DIPHENHYDRAMINE HCL 50 MG/ML VIAL ONE (12:38)
[2016-07-15] MEDS ORDERED: NALOXONE HCL INJ/PF 0.4 MG/1 ML SDV ONE (12:38)
[2016-07-15] MEDS ORDERED: ONDANSETRON HCL INJ/PF 4 MG/2 ML SDV ONE (12:38)
[2016-07-15] MEDS ORDERED: FLUMAZENIL INJ 0.5 MG/5 ML VIAL IV ONE (12:39)
[2016-07-15] MEDS ORDERED: EPINEPHRINE INJ 1 MG/10 ML DISP.SYRIN ONE (12:39)
[2016-07-15] MEDS ORDERED: FENTANYL CITRATE INJ/PF 100 MCG/2 ML AMPUL ONE (12:39)
[2016-07-15] MEDS ORDERED: GLUCAGON,HUMAN RECOMB 1 MG INJ ONE (12:39)
[2016-07-15] MEDS: MIDAZOLAM 2 MG/2 ML INJ ONE ×2 (12:55→12:59)
--- NOTE | 2016-07-15 13:53 | Operative Report ---
Operative Report DATE OF SURGERY: 07/15/16 Operative Report: The risks benefits and alternatives of the procedure explained to the patient in detail and informed consent is obtained .A GIF Olympus video scope was inserted into the patient's mouth and hypopharynx ,the esophagus is identified intubated and insufflated, the scope was then advanced through the esophagus stomach and duodenum ,retroflexion maneuver is done, the esophagus stomach and first and second portions of the duodenum examined PREOPERATIVE DIAGNOSIS: GI bleeding POSTOPERATIVE DIAGNOSIS: Status post gastric bypass. Has an anastomotic ulcer. Clean base and no active bleeding, biopsies obtained OPERATION: EGD with biopsy SURGEON: GODFREY ALLEN ANESTHESIA: Moderate Sedation - 4 mg of Versed, 50 g of fentanyl. Conscious sedation [id number] minutes. TISSUE REMOVED OR ALTERED: Gastric mucosal specimen obtained COMPLICATIONS: None. ESTIMATED BLOOD LOSS: none. INTRAOPERATIVE FINDINGS: As noted above. PROCEDURE: Patient tolerated the procedure well. No immediate postprocedure complications are noted. Patient is discharged in good condition. Discharge date 07/15/2016. Discharge diet: Regular. Discharge activity: Regular. 2-3 week follow-up to discuss findings. We'll await on biopsies. Patient is instructed to call the office or proceed to the emergency room should there be any further problems or questions.
--- NOTE | 2016-07-15 14:00 | PDOC CONSULTATION ---
Consultation Consult Date: 07/14/16 Attending physician:: GODFREY ALLEN Consult reason:: hematemesis History of Present Illness Admission Date/PCP: 07/12/16 02:02 MERYL ORNELAS MD History of Present Illness: patient was admitted over the weekend for observation and possible GI bleeding patient presented to his primary care office does have a history of a gastric bypass had an anastomotic ulcer in the past patient went to ED, was noted to have a drop of her Hgb of about 3 gms patient states has abdominal pain in the epigastric region some mild nausea and had vomiting patient denies any use of NSAIDS does have some early satiety patient will need EGD will make NPO and proceed in the am. Past Medical History Cardiac Medical History: Reports: Hypertension Denies: Heart Murmur Pulmonary Medical History: Neurological Medical History: Denies: Seizures Endocrine Medical History: Reports: Diabetes Mellitus Type 2 - Since gastric bypass has been able to stop all medications GI Medical History: Reports: Gastroesophageal Reflux Disease Musculoskeltal Medical History: Reports: Arthritis Psychiatric Medical History: Reports: Bipolar Disorder, Depression Hematology: Past Surgical History Past Surgical History: Reports: Appendectomy - 1975, Gastric Bypass Surgery - , Orthopedic Surgery - Right below-knee amputation, Tonsillectomy - 1978 Social History Smoking Status: Never Smoker Frequency of Alcohol Use: None Hx Recreational Drug Use: No Drugs: None Hx Prescription Drug Abuse: No - Advance Directive Resuscitation Status: Full Code Family History Family History: CAD, Hypertension Parental Family History Reviewed: Yes Children Family History Reviewed: Unknown Sibling(s) Family History Reviewed.: Unknown Medication/Allergy Home Medications: Escitalopram Oxalate [Lexapro] 40 mg PO QAM 06/26/16 Gabapentin [Neurontin 300 mg Capsule] 300 mg PO TID 06/26/16 Olanzapine [Zyprexa] 40 mg PO QHS 06/26/16 Promethazine HCl 12.5 mg PO Q6HP PRN 06/26/16 Quetiapine Fumarate [Seroquel] 600 mg PO QHS 06/26/16 Ropinirole HCl [Requip 0.25 mg Tablet] 0.25 mg PO QID 06/26/16 Sucralfate [Carafate Susp 1 gm/10 ml Udcup] 10 ml PO ACHS 06/26/16 Multivitamin [Multivitamins] 1 tab PO DAILY 07/12/16 Pantoprazole Sodium [Protonix] 40 mg PO BID 07/12/16 Trazodone HCl [Desyrel] 200 mg PO QHS 07/12/16 Allergies/Adverse Reactions: aripiprazole [From [facility]] Adverse Reaction (Severe, Verified 07/11/16 18:06) "uncontrollable muscle tremors" Review of Systems Constitutional: ABSENT: fever(s), headache(s), night sweats, weakness Eyes: ABSENT: visual disturbances Ears: ABSENT: hearing changes Cardiovascular: ABSENT: edema, orthropnea, palpitations Respiratory: ABSENT: dyspnea, hemoptysis Gastrointestinal: PRESENT: coffee ground emesis, heartburn, nausea. ABSENT: diarrhea Genitourinary: ABSENT: dysuria, hematuria Musculoskeletal: ABSENT: deformity Integumentary: ABSENT: lesions, pruritus Neurological: ABSENT: syncope, tingling, tremor(s), vertigo Psychiatric: ABSENT: hallucinations Endocrine: ABSENT: polydipsia, polyphagia, polyuria Hematologic/Lymphatic: ABSENT: easy bruising Physical Exam Vital Signs: Temp Pulse Resp BP Pulse Ox 97.8 F 66 14 99/64 L 98 07/14/16 23:09 07/15/16 13:30 07/15/16 13:30 07/15/16 13:30 07/15/16 13:30 Intake & Output 07/14/16 07/15/16 07/16/16 06:59 06:59 06:59 Intake Total 2154 4700 0 Output Total 2865 3272 Balance -711 1428 0 General appearance: PRESENT: no acute distress, cooperative, well-developed, well-nourished Head exam: PRESENT: atraumatic, normocephalic Eye exam: PRESENT: EOMI, PERRLA. ABSENT: nystagmus, periorbital swelling, scleral icterus Mouth exam: PRESENT: moist Throat exam: ABSENT: tonsillar exudate, tonsillogmegaly Neck exam: ABSENT: meningismus, tenderness, thyromegaly Respiratory exam: PRESENT: clear to auscultation jorge, symmetrical, unlabored. ABSENT: tachypnea, wheezes Cardiovascular exam: PRESENT: RRR, +S1, +S2 Pulses: PRESENT: normal carotid pulses GI/Abdominal exam: PRESENT: soft. ABSENT: ascites, Calle's sign, rebound, rigid, tenderness Extremities exam: PRESENT: full ROM. ABSENT: clubbing, joint swelling Neurological exam: PRESENT: alert, awake, oriented to time, oriented to situation, CN II-XII grossly intact Psychiatric exam: PRESENT: appropriate affect Skin exam: PRESENT: normal color. ABSENT: mottled, pallor, petechiae, urticaria , vesicles Results Laboratory Results: 07/13/16 14:10 07/12/16 05:32 07/12/16 02:15 Nasophary (Mrsa Only) MRSA Surveillance Culture - Final MRSA RECOVERED Impressions: Chest X-Ray 07/11/16 18:07 IMPRESSION: No acute findings. Assessment & Plan - Diagnosis (1) Hematemesis Qualifiers: Nausea presence: with nausea Qualified Code(s): K92.0 - Hematemesis Is this a current diagnosis for this admission?: YesPlan: Known history of anastomotic ulcer will need repeat EGD Hgb is stable Risks, benefits and alternatives are explained to the patient in detail further recommendations to follow he is willing to proceed start PPI biopsies to rule out H.Pylori transfuse as necessary - Time Time Spent: 50 to 70 Minutes
[2016-07-15] MEDS: ONDANSETRON HCL INJ/PF 4 MG/2 ML SDV IV PRN (16:21)
[2016-07-15 18:40] VITALS: BP 103/68
--- NOTE | 2016-07-15 18:42 | PDOC DISCHARGE SUMMARY ---
General - Admit/Disc Date/PCP Admission Date/Primary Care Provider: 07/12/16 02:02 MERYL ORNELAS MD Discharge Date: 07/15/16 - Discharge Diagnosis (1) Hematemesis Is this a current diagnosis for this admission?: Yes (2) gastric bypass surgery status post Is this a current diagnosis for this admission?: Yes (3) Anastomotic ulcer Is this a current diagnosis for this admission?: Yes - Additional Information Resuscitation Status: Full Code Discharge Diet: As Tolerated Discharge Activity: Activity As Tolerated Home Medications: Escitalopram Oxalate [Lexapro] 40 mg PO QAM 06/26/16 Gabapentin [Neurontin 300 mg Capsule] 300 mg PO TID 06/26/16 Olanzapine [Zyprexa] 40 mg PO QHS 06/26/16 Promethazine HCl 12.5 mg PO Q6HP PRN 06/26/16 Quetiapine Fumarate [Seroquel] 600 mg PO QHS 06/26/16 Ropinirole HCl [Requip 0.25 mg Tablet] 0.25 mg PO QID 06/26/16 Sucralfate [Carafate Susp 1 gm/10 ml Udcup] 10 ml PO ACHS 06/26/16 Multivitamin [Multivitamins] 1 tab PO DAILY 07/12/16 Pantoprazole Sodium [Protonix] 40 mg PO BID 07/12/16 Trazodone HCl [Desyrel] 200 mg PO QHS 07/12/16 History of Present Illness History of Present Illness: YESSY ALMODOVAR is a 51 year old male, he came to the office because he said he vomited blood, he is status post gastric bypass surgery, he has a history of anastomotic ulcer and he has had episode of GI bleed in the past because of these findings he was advised to go to emergency room for evaluation because I could not admit him directly into the hospital because no bed was immediately available at the time. In the emergency room he was evaluated the hemogram revealed hemoglobin of 11 but is a change from previous hemogram when it was 14. Because of these findings ED physician is suggesting that patient needed to be admitted to the hospital. Hospital Course Hospital Course: Patient was admitted because of hematemesis, he had upper endoscopy done today, he was found to have an anastomotic ulcer, but there was no active bleeding found. He will be discharge home today. On admission the hemoglobin was was 11 , before this admission, it was 14, and there was decrease in the hemoglobin during the course of the hospital stay. He did not require any blood transfusion, there was no overt bleeding, seen during the course of hospital stay. Physical Exam Vital Signs: Temp Pulse Resp BP Pulse Ox 98.0 F 111 H 20 122/73 97 07/15/16 16:50 07/15/16 16:50 07/15/16 16:50 07/15/16 16:50 07/15/16 16:50 Intake & Output 07/14/16 07/15/16 07/16/16 06:59 06:59 06:59 Intake Total 2154 4700 0 Output Total 2865 3272 800 Balance -711 1428 -800 General appearance: PRESENT: no acute distress, well-developed, well-nourished Head exam: PRESENT: atraumatic, normocephalic Eye exam: PRESENT: conjunctiva pink, EOMI, PERRLA. ABSENT: scleral icterus Ear exam: PRESENT: normal external ear exam Neck exam: PRESENT: full ROM Cardiovascular exam: PRESENT: RRR. ABSENT: diastolic murmur, rubs, systolic murmur Vascular exam: PRESENT: normal capillary refill GI/Abdominal exam: PRESENT: normal bowel sounds, soft Rectal exam: PRESENT: deferred Neurological exam: PRESENT: alert, awake, oriented to person, oriented to place , oriented to time, oriented to situation, CN II-XII grossly intact Psychiatric exam: PRESENT: appropriate affect, normal mood Skin exam: PRESENT: dry, intact, warm Results Laboratory Results: 07/13/16 14:10 07/12/16 05:32 Impressions: Chest X-Ray 07/11/16 18:07 IMPRESSION: No acute findings.
== END 2016-07-15 19:03 | disposition home or self-care (01) ==
LOC: ER 16:25 → EH 22:51 → UNDOADMIN 22:51 → EH 07-12 01:00 → 4S 07-12 01:00 → INTOOBSV 07-12 02:02 → 4S 07-12 02:02 → EH 07-12 02:02
PROVIDERS: ADMIT Internal Medicine; ATTEND Internal Medicine
PROC: 0DB64ZX Excision of Stomach, Percutaneous Endoscopic Approach, Diagnostic (ICD-10-PCS; principal; 2016-07-15 12:00)
DX: K92.0 Hematemesis (principal); Z98.84 Bariatric surgery status; K28.9 Gastrojejunal ulcer, unspecified as acute or chronic, without hemorrhage or perforation; Z79.899 Other long term (current) drug therapy; R71.0 Precipitous drop in hematocrit; R68.81 Early satiety; E11.9 Type 2 diabetes mellitus without complications; K21.9 Gastro-esophageal reflux disease without esophagitis; R07.9 Chest pain, unspecified; Z98.890 Other specified postprocedural states; Z87.442 Personal history of urinary calculi; Z90.49 Acquired absence of other specified parts of digestive tract; Z89.511 Acquired absence of right leg below knee
CPT/HCPCS: 96376; 99285; 96361; 96374; 96375; 43239; 86900; 86901; 36415 ×3; 86850; 85025 ×3; 85027; 85610; 85730; 82272; 80048; 80053; 81001; 87493 ×2; 88305 ×2; 71020; J2250; A9270 ×32; J3010; J1170 ×5; C9113; J2405 ×3; J7030; G0378; J0171; J1200; J1610; J2310; J3490; S0164

== ENCOUNTER 2016-07-18 07:39 | Emergency (ER) | payer MEDICAID, MEDICARE ==
--- NOTE | 2016-07-18 08:04 | ER Document Report ---
ED General - General Mode of Arrival: Ambulatory Information source: Patient TRAVEL OUTSIDE OF THE [place] IN LAST 30 DAYS: No - HPI Onset: Other - ~10 Days Quality of pain: Achy, Burning Severity: Moderate Pain Level: 3 Associated symptoms: Nausea, Vomiting Exacerbated by: Denies Relieved by: Denies Similar symptoms previously: Yes Recently seen / treated by doctor: Yes <TRINA JACOBSEN - Last Filed: 07/18/16 19:37> <LACI PERALES - Last Filed: 07/20/16 10:19> - General Chief Complaint: Abdominal Pain Stated Complaint: ABDOMINAL PAIN Time Seen by Provider: 07/18/16 07:59 Notes: Emergency department with complaints of abdominal pain. History of ulcers. He was recently admitted for ulcers and had a scope done which showed an anastomatic ulcer. He was discharged last week. Patient reports he felt slightly better when he was in the hospital but the pain is worse now. He denies fever but reports nausea and vomiting, last time he vomited was this morning around 0500. Patient reports he taking Phenergan without relief of symptoms. He reports last bowel movement was Friday with dark did not notice any blood. Patient did follow up with Dr. Ornelas upon discharge he was instructed to follow-up with Dr. Meier for concerns. He called Dr. Pastrana's office and was told to go emergency department and they would consult him as needed. He has been eating soft foods like yogurt and qrits as instructed. Last meal was yesterday. (TRINA JACOBSEN) - Related Data Allergies/Adverse Reactions: aripiprazole [From [facility]] Adverse Reaction (Severe, Verified 07/20/16 08:03) "uncontrollable muscle tremors" Past Medical History - General Information source: Patient - Social History Smoking Status: Unknown if Ever Smoked Cigarette use (# per day): No Frequency of alcohol use: None Drug Abuse: None Lives with: Alone Family History: CAD, Hypertension, Other - ulcers father and sister Patient has suicidal ideation: No Patient has homicidal ideation: No - Past Medical History Cardiac Medical History: Reports: Hx Hypertension Denies: Hx Heart Murmur Pulmonary Medical History: Neurological Medical History: Denies: Hx Seizures Endocrine Medical History: Reports: Hx Diabetes Mellitus Type 2 - Since gastric bypass has been able to stop all medications Renal/ Medical History: Reports: Hx Kidney Stones - LEFT , "passed" multiple, ESWL x 2, "laser" surgery x 1. Denies: Hx Peritoneal Dialysis GI Medical History: Reports: Hx Gastroesophageal Reflux Disease, Hx Ulcer Musculoskeltal Medical History: Reports Hx Arthritis Skin Medical History: Reports Hx MRSA Psychiatric Medical History: Reports: Hx Bipolar Disorder, Hx Depression Traumatic Medical History: Reports: Hx Fractures - RT ankle 2010 Infectious Medical History: Past Surgical History: Reports: Hx Abdominal Surgery - Repair of complications from gastric bypass, Hx Appendectomy - 1975, Hx Bowel Surgery - bowel perforation 09/26/2015, May 2016, Hx Gastric Bypass Surgery - 02/19/13, Hx Orthopedic Surgery - Right below-knee amputation, Hx Tonsillectomy - 1978 - Immunizations Immunizations up to date: Yes Hx Diphtheria, Pertussis, Tetanus Vaccination: Yes Hx Pneumococcal Vaccination: 03/03/11 <TRINA JACOBSEN - Last Filed: 07/18/16 19:37> Review of Systems <TRINA JACOBSEN - Last Filed: 07/18/16 19:37> <LACI PERALES - Last Filed: 07/20/16 10:19> - Review of Systems Notes: Review HPI for review of systems., All other systems negative (TRINA JACOBSEN) Physical Exam - Rectal Tenderness: No Hemorrhoids: None <TRINA JACOBSEN - Last Filed: 07/18/16 19:37> <LACI PERALES - Last Filed: 07/20/16 10:19> - Vital signs Vitals: Temp Pulse Resp BP Pulse Ox 97.4 F 116 H 20 126/88 H 99 07/18/16 07:43 07/18/16 07:43 07/18/16 07:43 07/18/16 07:43 07/18/16 07:43 - Notes Notes: PHYSICAL EXAMINATION: GENERAL: Well-appearing and in no acute distress HEAD: Atraumatic, normocephalic. EYES: Pupils equal round , extraocular movements intact, sclera anicteric, conjunctiva are normal. ENT: nares patent, Moist mucous membranes. NECK: Normal range of motion, supple without lymphadenopathy LUNGS: CTAB and equal. No wheezes rales or rhonchi. HEART: Regular rate and rhythm without murmurs ABDOMEN: Soft, generalized tenderness. reports more tender in epigastric No guarding, no rebound EXTREMITIES: Normal range of motion, no pitting edema. No cyanosis. [facility] NEUROLOGICAL: Cranial nerves grossly intact. Normal sensory/motor exams. PSYCH: Normal mood, normal affect. SKIN: Warm, Dry, normal turgor, no rashes or lesions noted (TRINA JACOBSEN) Course - Laboratory Result Diagrams: 07/18/16 08:27 07/18/16 08:27 - Diagnostic Test Radiology reviewed: Image reviewed, Reports reviewed - no perforation - Consults seymour Time consulted: 10:37 Consulted provider: other - may consult if admitted by dr fontanez for pain control clari Consulted provider: other - PT TO FU WITH HIS GI SPECIALIST FOR GASTRIC BYPASS REVERSAL <TRINA JACOBSEN - Last Filed: 07/18/16 19:37> - Laboratory Result Diagrams: 07/18/16 08:27 07/18/16 08:27 <LACI PERALES - Last Filed: 07/20/16 10:19> - Re-evaluation Re-evalutation: 07/18/16 10:25 Dr Perales consulted regarding patient hx, c/o Dr Pastrana consulted, updated on patient c/o. He reports he has anastomatic ulce and will take time to heal. He reports he will be glad to consult on the patient if the patient is admitted. Dr Ornelas contacted. He reports he has done everything he can for the patient. He reports pt must fu with GI for gastric bypass reversal. He declined pain medication for the patient 07/18/16 13:37 no further drop in H/H. CT does not show obstruction. Patients sister is here. She reports patient really likes Dilaudid. I tried to obtain an earlier appointment for patient with Dr. Fletcher without success. Pt has appointment August 28. He was instructed on both consults. Pt updated on plan of care. Instructed to obtain pain medication for the Dr Ornelas or Dr Pastrana. No vomiting during the entire visit. (TRINA JACOBSEN) - Vital Signs Vital signs: Temp Pulse Resp BP Pulse Ox 97.8 F 75 15 132/87 H 97 07/18/16 13:56 07/18/16 13:56 07/18/16 13:56 07/18/16 13:56 07/18/16 13:56 - Laboratory Laboratory results interpreted by me: 07/18/16 07/18/16 08:27 08:27 Hgb 11.6 L Hct 34.7 L MCV 74 L MCH 24.8 L RDW 16.6 H Albumin 3.4 L - Consults seymour Reason for consultation: 07/18/16 10:37 abdominal pain, hx ulcer (TRINA JACOBSEN) clari Reason for consultation: 07/18/16 13:38 abdominal pain, (TRINA JACOBSEN) Discharge <TRINA JACOBSEN - Last Filed: 07/18/16 19:37> <DIAZLACI - Last Filed: 07/20/16 10:19> - Discharge Clinical Impression: Abdominal pain Condition: Stable Disposition: HOME, SELF-CARE Instructions: Antinausea Medication ([facility]), Abdominal Pain ([facility]) Additional Instructions: *You have been evaluated for abdominal pain, history of ulcers *Take medication as prescribed *Follow up with Dr Fontanez within one week for recheck *Follow up with Dr Fletcher in [place] as scheduled *Return to ED for worsening condition, changes, needs *Return to ED if not better in 24 hours Monitor your blood pressure. Your blood pressure was elevated today. This may be because you were anxious, in pain or because you need medication. It is important to follow up with your primary care provider for full evaluation. Prescriptions: Promethazine HCl [Phenergan 25 mg Supp.rect] 25 mg [place] Q4HP PRN #12 supp.rect PRN Reason: Forms: Elevated Blood Pressure Referrals: MERYL ORNELAS MD [Primary Care Provider] - Follow up in 3-5 days
[2016-07-18] MEDS ORDERED: ONDANSETRON HCL INJ/PF 4 MG/2 ML SDV IV ONE ×2 (08:27→12:28)
[2016-07-18] MEDS ORDERED: HYDROMORPHONE HCL INJ/PF 2 MG/ML AMPULE IV ONE ×2 (08:27→10:59)
[2016-07-18 08:51] LABS: ABSOLUTE EOSINOPHILS # (AUTO) 0.1 10^3/uL (0.0-0.6); ABSOLUTE LYMPHOCYTES (AUTO) 1.6 10^3/uL (0.5-4.7); ABSOLUTE MONOCYTES (AUTO) 0.4 10^3/uL (0.1-1.4); BASOPHILS % (AUTO) 0.6 % (0-2); EOSINOPHILS % (AUTO) 3.1 % (0-6); HEMATOCRIT 34.7 % (37.9-51.0); HEMOGLOBIN 11.6 g/dL (13.5-17.0); HGB HCT DIFFERENCE 0.1; LYMPHOCYTES % (AUTO) 38.1 % (13-45); MEAN CORPUSCULAR HEMOGLOBIN 24.8 pg (27.0-33.4); MEAN CORPUSCULAR HGB CONC 33.3 g/dL (32.0-36.0); MEAN CORPUSCULAR VOLUME 74 fl (80-97); MONOCYTES % (AUTO) 9.5 % (3-13); RED BLOOD COUNT 4.67 10^6/uL (4.35-5.55); RED CELL DISTRIBUTION WIDTH 16.6 % (11.5-14.0); SEGMENTED NEUTROPHILS % (AUTO) 48.7 % (42-78); WHITE BLOOD COUNT 4.1 10^3/uL (4.0-10.5)
[2016-07-18 08:52] LABS: APPEARANCE,URINE CLEAR; BILIRUBIN,URINE NEGATIVE (NEGATIVE); GLUCOSE, URINE NEGATIVE (NEGATIVE); KETONES,URINE NEGATIVE (NEGATIVE); LEUKOCYTE ESTERASE,URINE NEGATIVE (NEGATIVE); NITRITE,URINE NEGATIVE (NEGATIVE); PROTEIN,URINE NEGATIVE (NEGATIVE); URINE SPECIFIC GRAVITY 1.005; UROBILINOGEN,URINE NEGATIVE mg/dL (<2.0)
[2016-07-18 09:10] LABS: PROTHROMBIN TIME 14.2 SEC (11.4-15.4)
[2016-07-18 09:11] LABS: PARTIAL THROMBOPLASTIN TIME 34.5 SEC (23.5-35.8)
[2016-07-18 09:16] LABS: ALANINE AMINOTRANSFERASE 24 U/L (21-72); ALBUMIN 3.4 g/dL (3.5-5.0); ALKALINE PHOSPHATASE 101 U/L (38-126); ANION GAP 9 (5-19); ASPARTATE AMINO TRANSFERASE 37 U/L (17-59); BILIRUBIN,DIRECT 0.3 mg/dL (0.0-0.4); BILIRUBIN,TOTAL 0.5 mg/dL (0.2-1.3); BLOOD UREA NITROGEN 8 mg/dL (7-20); CALCIUM 9.2 mg/dL (8.4-10.2); CARBON DIOXIDE 28 mmol/L (22-30); CHLORIDE 101 mmol/L (98-107); CREATININE RESULT 0.71 mg/dL (0.52-1.25); GLUCOSE 103 mg/dL (75-110); LIPASE 45.4 U/L (23-300); POTASSIUM 3.9 mmol/L (3.6-5.0); SODIUM 138.2 mmol/L (137-145); TOTAL PROTEIN 6.5 g/dL (6.3-8.2)
[2016-07-18] MEDS ORDERED: PROMETHAZINE HCL 25 MG SUPP.RECT PR ONE (13:20)
[2016-07-18 13:58] VITALS: BP 132/87
== END 2016-07-18 13:55 | disposition home or self-care (01) ==
LOC: ER 07:39
DX: K28.9 Gastrojejunal ulcer, unspecified as acute or chronic, without hemorrhage or perforation (principal); R10.9 Unspecified abdominal pain; R10.817 Generalized abdominal tenderness; R11.2 Nausea with vomiting, unspecified; I10 Essential (primary) hypertension; Z98.84 Bariatric surgery status; Z86.14 Personal history of Methicillin resistant Staphylococcus aureus infection; Z87.19 Personal history of other diseases of the digestive system; Z87.442 Personal history of urinary calculi
CPT/HCPCS: 96376; 99284; 96374; 96375; 36415; 83690; 85025; 85610; 85730; 82272; 80053; 81001; 74176; J1170; A9270; J2405; J3490

== ENCOUNTER 2016-07-20 07:55 | Emergency (ER) | payer MEDICARE, MEDICAID ==
--- NOTE | 2016-07-20 08:50 | ER Document Report ---
ED GI/ - General Mode of Arrival: Ambulatory Information source: Patient TRAVEL OUTSIDE OF THE [place] IN LAST 30 DAYS: No - HPI Patient complains to provider of: Abdominal pain Associated symptoms: Other - See above <JORGE L JUNG - Last Filed: 07/20/16 10:41> <LACI PERALES - Last Filed: 07/20/16 15:41> - General Chief Complaint: Abdominal Pain Stated Complaint: ABDOMINAL PAIN Time Seen by Provider: 07/20/16 08:20 Notes: Patient is a 51 year old male who presents to the emergency department complaining of abdominal pain. Patient has been seen at this facility 3 times in the past month for this same complaint and has chronic abdominal pain. Patient was last seen 2 days ago and was told he had a small ulcer and states he has still had abdominal pain since. Patient was referred to Dr. Pastrana and has an appointment next week. Patient is also scheduled to see a specialist in [place] next month. Patient is currently taking Protonix, Carafate, and Phenergan. (JORGE L JUNG) - Related Data Allergies/Adverse Reactions: aripiprazole [From Abilify] Adverse Reaction (Severe, Verified 07/20/16 08:03) "uncontrollable muscle tremors" Past Medical History - General Information source: Patient - Social History Smoking Status: Unknown if Ever Smoked Family History: Reviewed & Not Pertinent, CAD, Hypertension, Other - ulcers father and sister Patient has suicidal ideation: No Patient has homicidal ideation: No - Past Medical History Cardiac Medical History: Reports: Hx Hypertension Pulmonary Medical History: Endocrine Medical History: Reports: Hx Diabetes Mellitus Type 2 - Since gastric bypass has been able to stop all medications Renal/ Medical History: Reports: Hx Kidney Stones - LEFT , "passed" multiple, ESWL x 2, "laser" surgery x 1 GI Medical History: Reports: Hx Gastroesophageal Reflux Disease, Hx Ulcer Musculoskeltal Medical History: Reports Hx Arthritis Skin Medical History: Reports Hx MRSA Psychiatric Medical History: Reports: Hx Bipolar Disorder, Hx Depression Traumatic Medical History: Reports: Hx Fractures - RT ankle 2010 Infectious Medical History: Past Surgical History: Reports: Hx Abdominal Surgery - Repair of complications from gastric bypass, Hx Appendectomy - 1975, Hx Bowel Surgery - bowel perforation 09/26/2015, May 2016, Hx Gastric Bypass Surgery - 02/19/13, Hx Orthopedic Surgery - Right below-knee amputation, Hx Tonsillectomy - 1978 - Immunizations Immunizations up to date: Yes Hx Diphtheria, Pertussis, Tetanus Vaccination: Yes Hx Pneumococcal Vaccination: 03/03/11 <JORGE L JUNG - Last Filed: 07/20/16 10:41> Review of Systems - Review of Systems Constitutional: No symptoms reported EENT: No symptoms reported Cardiovascular: No symptoms reported Respiratory: No symptoms reported Gastrointestinal: Abdominal pain Genitourinary: No symptoms reported Male Genitourinary: No symptoms reported Musculoskeletal: No symptoms reported Skin: No symptoms reported Hematologic/Lymphatic: No symptoms reported Neurological/Psychological: No symptoms reported -: Yes All other systems reviewed and negative <JORGE L JUNG - Last Filed: 07/20/16 10:41> Physical Exam - Vital signs Interpretation: Normal - General General appearance: Appears well, Alert - HEENT Head: Normocephalic, Atraumatic - Respiratory Respiratory status: No respiratory distress Chest status: Nontender Breath sounds: Normal Chest palpation: Normal - Cardiovascular Rhythm: Regular Heart sounds: Normal auscultation Murmur: No - Abdominal Inspection: Normal Distension: No distension Bowel sounds: Normal Tenderness: Nontender - soft Organomegaly: No organomegaly - Extremities General upper extremity: Normal inspection General lower extremity: Other - Rigth BKA - Neurological Neuro grossly intact: Yes Cognition: Normal Orientation: AAOx4 [place] Coma Scale Eye Opening: Spontaneous [place] Coma Scale Verbal: Oriented [place] Coma Scale Motor: Obeys Commands [place] Coma Scale Total: 15 Speech: Normal - Psychological Associated symptoms: Normal affect, Normal mood - Skin Skin Temperature: Warm Skin Moisture: Dry Skin Color: Normal <JORGE L JUNG - Last Filed: 07/20/16 10:41> Course - Laboratory Result Diagrams: 07/20/16 08:30 07/20/16 08:30 - Consults Dr. Sen Time consulted: 11:40 - Surgeon risk consulting treasury director agrees that patient is not surgical <JORGE L JUNG - Last Filed: 07/20/16 10:41> - Laboratory Result Diagrams: 07/20/16 08:30 07/20/16 08:30 <LACI PERALES - Last Filed: 07/20/16 15:41> - Re-evaluation Re-evalutation: 07/20/16 10:50 Patient presents emergency room for treatment of abdominal pain. Patient has a chronic long-standing history of multiple abdominal problems including duodenal ulcers with perforation has seen GI locally has a family doctor locally and has a surgeon that he sees his by it. He has been seen and evaluated multiple times in the emergency department admitted last week for pain control Dr. Mcgarry scope him at that time found some mild gastritis, Carafate since then he has had multiple recurrent visits to the emergency department and he requests Dilaudid by name. On examination he is well-appearing nontoxic no acute distress he is afebrile sitting upright not actively vomiting. His belly is soft good bowel sounds no tenderness guarding rebound or rigidity on serial abdominal examinations. Negative acute labs white count is negative CT is noncontrast yesterday was normal. Dr. Pastrana and GI are not also weakened but I spoke with the surgeon risk consulting treasury director who agreed that this was someone that did not require a CT or surgical evaluation or inpatient admission currently. At this with the patient as well as pain control for chronic issues. Right now I do not think he has an acute surgical abdomen or perforation he has an appointment to follow-up with GI on Friday primary care physician on Friday and discussed reasons for ED return sooner (LACI PERALES) - Vital Signs Vital signs: Temp Pulse Resp BP Pulse Ox 97.9 F 87 18 110/81 97 07/20/16 10:51 07/20/16 10:51 07/20/16 10:51 07/20/16 10:51 07/20/16 10:51 - Laboratory Laboratory results interpreted by me: 07/20/16 07/20/16 08:30 08:30 Hgb 10.7 L Hct 32.7 L MCV 75 L MCH 24.5 L RDW 16.6 H Total Protein 6.0 L Albumin 3.1 L Discharge <JORGE L JUNG - Last Filed: 07/20/16 10:41> <LACI PERALES - Last Filed: 07/20/16 15:41> - Discharge Clinical Impression: Abdominal pain Qualifiers: Abdominal location: unspecified location Qualified Code(s): R10.9 - Unspecified abdominal pain Condition: Stable Disposition: HOME, SELF-CARE Additional Instructions: Abdominal Pain There are many causes of abdominal pain. Pain can mean a serious problem requiring surgery (such as appendicitis). It can also be an innocent problem that goes away on its own (such as a viral infection). Often, time must pass to determine the cause of pain. The physician does not feel that hospitalization is necessary, at present. Things may change within the next 24 hours. Call the doctor or come back for re- examination if any problems occur, such as: (1) Pain that becomes more severe, steady, or becomes concentrated in one specific area. Also, pain that is more severe with movement or coughing. (2) Vomiting that persists or becomes more frequent. (3) Blood in the vomitus, urine, or bowel movements. Blood in the stool may have a tarry or black appearance. (4) Shaking chills or fever greater than 100 degrees F. (5) The abdomen becomes more distended or swollen. (6) Bowel movements cease. (7) Failure to improve as expected. Referrals: MERYL ORNELAS MD [Primary Care Provider] - (in 2-3 days return to er sooner for increasing worsening or new symptoms) GODFREY PASTRANA MD [ACTIVE STAFF] - (as scheduled on friday return to er sooner for increasing worsening or new symptoms) Scribe Attestation: 07/20/16 10:45 I personally performed the services described in the documentation reviewed the documentation recorded by my scribe in my presence and it accurately and completely records my words and actions (LACI PERALES) Scribe Documentation - Scribe Written by Phillip:: phillip Molina, 07/20/16, 0925 acting as scribe for :: Haresh <JORGE L JUNG - Last Filed: 07/20/16 10:41>
[2016-07-20 09:05] LABS: APPEARANCE,URINE CLEAR; BILIRUBIN,URINE NEGATIVE (NEGATIVE); GLUCOSE, URINE NEGATIVE (NEGATIVE); KETONES,URINE NEGATIVE (NEGATIVE); LEUKOCYTE ESTERASE,URINE NEGATIVE (NEGATIVE); NITRITE,URINE NEGATIVE (NEGATIVE); PROTEIN,URINE NEGATIVE (NEGATIVE); URINE SPECIFIC GRAVITY 1.004; UROBILINOGEN,URINE NEGATIVE mg/dL (<2.0)
[2016-07-20 09:11] LABS: ABSOLUTE EOSINOPHILS # (AUTO) 0.1 10^3/uL (0.0-0.6); ABSOLUTE LYMPHOCYTES (AUTO) 1.4 10^3/uL (0.5-4.7); ABSOLUTE MONOCYTES (AUTO) 0.4 10^3/uL (0.1-1.4); ABSOLUTE NEUT (AUTO) 3.8 10^3/uL (1.7-8.2); BASOPHILS % (AUTO) 0.5 % (0-2); EOSINOPHILS % (AUTO) 1.9 % (0-6); HEMATOCRIT 32.7 % (37.9-51.0); HEMOGLOBIN 10.7 g/dL (13.5-17.0); HGB HCT DIFFERENCE -0.6; LYMPHOCYTES % (AUTO) 24.8 % (13-45); MEAN CORPUSCULAR HEMOGLOBIN 24.5 pg (27.0-33.4); MEAN CORPUSCULAR HGB CONC 32.9 g/dL (32.0-36.0); MEAN CORPUSCULAR VOLUME 75 fl (80-97); MONOCYTES % (AUTO) 7.7 % (3-13); RED BLOOD COUNT 4.39 10^6/uL (4.35-5.55); RED CELL DISTRIBUTION WIDTH 16.6 % (11.5-14.0); SEGMENTED NEUTROPHILS % (AUTO) 65.1 % (42-78); WHITE BLOOD COUNT 5.8 10^3/uL (4.0-10.5)
[2016-07-20 09:25] LABS: ALANINE AMINOTRANSFERASE 32 U/L (21-72); ALBUMIN 3.1 g/dL (3.5-5.0); ALKALINE PHOSPHATASE 111 U/L (38-126); ANION GAP 13 (5-19); ASPARTATE AMINO TRANSFERASE 17 U/L (17-59); BILIRUBIN,DIRECT 0.2 mg/dL (0.0-0.4); BILIRUBIN,TOTAL 0.5 mg/dL (0.2-1.3); BLOOD UREA NITROGEN 10 mg/dL (7-20); CALCIUM 8.8 mg/dL (8.4-10.2); CARBON DIOXIDE 26 mmol/L (22-30); CHLORIDE 99 mmol/L (98-107); CREATININE RESULT 0.85 mg/dL (0.52-1.25); GLUCOSE 86 mg/dL (75-110); LIPASE 71.4 U/L (23-300); POTASSIUM 4.6 mmol/L (3.6-5.0); SODIUM 137.5 mmol/L (137-145)
[2016-07-20] MEDS ORDERED: ONDANSETRON 4 MG TAB.RAPDIS PO ONE (10:03)
[2016-07-20 10:53] VITALS: BP 110/81
== END 2016-07-20 10:51 | disposition home or self-care (01) ==
LOC: ER 07:55
DX: K26.5 Chronic or unspecified duodenal ulcer with perforation (principal); K29.70 Gastritis, unspecified, without bleeding; R10.9 Unspecified abdominal pain; I10 Essential (primary) hypertension; Z79.899 Other long term (current) drug therapy; Z98.84 Bariatric surgery status; Z90.49 Acquired absence of other specified parts of digestive tract; Z89.511 Acquired absence of right leg below knee; Z98.890 Other specified postprocedural states
CPT/HCPCS: 99284; 36415; 83690; 85025; 80053; 81001; A9270; S0119

== ENCOUNTER 2016-07-29 05:44 | Emergency (ER) | payer MEDICARE, MEDICAID ==
[2016-07-29 06:16] LABS: ABSOLUTE EOSINOPHILS # (AUTO) 0.1 10^3/uL (0.0-0.6); ABSOLUTE LYMPHOCYTES (AUTO) 1.8 10^3/uL (0.5-4.7); ABSOLUTE MONOCYTES (AUTO) 0.7 10^3/uL (0.1-1.4); ABSOLUTE NEUT (AUTO) 7.3 10^3/uL (1.7-8.2); BASOPHILS % (AUTO) 0.2 % (0-2); EOSINOPHILS % (AUTO) 1.1 % (0-6); HEMATOCRIT 34.6 % (37.9-51.0); HEMOGLOBIN 11.3 g/dL (13.5-17.0); HGB HCT DIFFERENCE -0.7; LYMPHOCYTES % (AUTO) 18.2 % (13-45); MEAN CORPUSCULAR HEMOGLOBIN 24.4 pg (27.0-33.4); MEAN CORPUSCULAR HGB CONC 32.5 g/dL (32.0-36.0); MEAN CORPUSCULAR VOLUME 75 fl (80-97); MONOCYTES % (AUTO) 7.3 % (3-13); RED BLOOD COUNT 4.61 10^6/uL (4.35-5.55); RED CELL DISTRIBUTION WIDTH 16.3 % (11.5-14.0); SEGMENTED NEUTROPHILS % (AUTO) 73.2 % (42-78); WHITE BLOOD COUNT 9.9 10^3/uL (4.0-10.5)
[2016-07-29 06:26] LABS: ALANINE AMINOTRANSFERASE 30 U/L (21-72); ALBUMIN 2.9 g/dL (3.5-5.0); ALKALINE PHOSPHATASE 83 U/L (38-126); ANION GAP 7 (5-19); ASPARTATE AMINO TRANSFERASE 23 U/L (17-59); BILIRUBIN,DIRECT 0.2 mg/dL (0.0-0.4); BILIRUBIN,TOTAL 0.2 mg/dL (0.2-1.3); BLOOD UREA NITROGEN 7 mg/dL (7-20); CALCIUM 9.1 mg/dL (8.4-10.2); CARBON DIOXIDE 27 mmol/L (22-30); CHLORIDE 102 mmol/L (98-107); CREATININE RESULT 0.76 mg/dL (0.52-1.25); GLUCOSE 89 mg/dL (75-110); LIPASE 50.1 U/L (23-300); POTASSIUM 4.3 mmol/L (3.6-5.0); TOTAL PROTEIN 5.9 g/dL (6.3-8.2)
--- NOTE | 2016-07-29 06:58 | ER Document Report ---
ED GI/ - General Mode of Arrival: Medic Information source: Patient TRAVEL OUTSIDE OF THE [place] IN LAST 30 DAYS: No - HPI Patient complains to provider of: Abdominal pain, Vomiting, Other - blood in stool Onset: Yesterday Location: LLQ, RLQ Associated symptoms: Other - see notes above <YASMEEN MATHIS - Last Filed: 07/29/16 07:34> <LACI PERALES - Last Filed: 07/29/16 13:55> - General Chief Complaint: Abdominal Pain Stated Complaint: ABDMINAL PAIN Time Seen by Provider: 07/29/16 06:50 Notes: 51 year old male with history of gastric bypass surgery, bleeding GI ulcers, hypertension and type II diabetes mellitus presents to the ED complaining of bilateral lower quadrant abdominal pain, vomiting, and two episodes of bright red bloody stool (once yesterday and once this morning) that started yesterday. Patient reports that he has seen Dr. Rios regarding the bleeding and is treating him with Protonix (TID). Patient states that his condition is not surgical according to Dr. Rios and is scheduled to see Dr. Pastrana later this week. Patient was seen in the ED for abdominal pain and possible GI bleeding on 07/11/2016, 07/18/2016, and 07/20/2016. (YASMEEN MATHIS) - Related Data Allergies/Adverse Reactions: [facility] Adverse Reaction (Severe, Verified 07/20/16 08:03) "uncontrollable muscle tremors" Past Medical History - General Information source: Patient - Social History Smoking Status: Unknown if Ever Smoked Chew tobacco use (# tins/day): No Frequency of alcohol use: None Drug Abuse: None Family History: Reviewed & Not Pertinent, CAD, Hypertension, Other - ulcers father and sister - Past Medical History Cardiac Medical History: Reports: Hx Hypertension Denies: Hx Heart Murmur Pulmonary Medical History: Neurological Medical History: Denies: Hx Seizures Endocrine Medical History: Reports: Hx Diabetes Mellitus Type 2 - Since gastric bypass has been able to stop all medications Renal/ Medical History: Reports: Hx Kidney Stones - LEFT , "passed" multiple, ESWL x 2, "laser" surgery x 1. Denies: Hx Peritoneal Dialysis GI Medical History: Reports: Hx Gastroesophageal Reflux Disease, Hx Ulcer Musculoskeltal Medical History: Reports Hx Arthritis Skin Medical History: Reports Hx MRSA Psychiatric Medical History: Reports: Hx Bipolar Disorder, Hx Depression Traumatic Medical History: Reports: Hx Fractures - RT ankle 2011 Infectious Medical History: Past Surgical History: Reports: Hx Abdominal Surgery - Repair of complications from gastric bypass, Hx Appendectomy - 1975, Hx Bowel Surgery - bowel perforation 09/26/2015, May 2016, Hx Gastric Bypass Surgery - 02/19/13, Hx Orthopedic Surgery - Right below-knee amputation, Hx Tonsillectomy - 1978 - Immunizations Immunizations up to date: Yes Hx Diphtheria, Pertussis, Tetanus Vaccination: Yes Hx Pneumococcal Vaccination: 03/03/11 <YASMEEN MATHIS - Last Filed: 07/29/16 07:34> Review of Systems - Review of Systems Constitutional: No symptoms reported EENT: No symptoms reported Cardiovascular: No symptoms reported Respiratory: No symptoms reported Gastrointestinal: See HPI, Abdominal pain - bilateral lower quadrant, Vomiting, Rectal bleeding Genitourinary: No symptoms reported Male Genitourinary: No symptoms reported Musculoskeletal: No symptoms reported Skin: No symptoms reported Hematologic/Lymphatic: No symptoms reported Neurological/Psychological: No symptoms reported -: Yes All other systems reviewed and negative <YASMEEN MATHIS - Last Filed: 07/29/16 07:34> Physical Exam - General General appearance: Alert In distress: None - HEENT Head: Normocephalic, Atraumatic Eyes: Normal Extraocular movements intact: Yes Pupils: PERRL - Respiratory Respiratory status: No respiratory distress Breath sounds: Normal - Cardiovascular Rhythm: Regular Heart sounds: Normal auscultation - Abdominal Inspection: Normal Distension: No distension Tenderness: Nontender - Rectal Tenderness: Yes Stool: Other - Small tinge of blood with brown mucous, but no pure blood Hemorrhoids: None - Back Back: Normal - Extremities General upper extremity: Normal inspection, Normal ROM General lower extremity: Normal ROM. No: Normal inspection - right BKA - Neurological Neuro grossly intact: Yes Cognition: Normal Orientation: AAOx4 [place] Coma Scale Eye Opening: Spontaneous [place] Coma Scale Verbal: Oriented [place] Coma Scale Motor: Obeys Commands [place] Coma Scale Total: 15 Speech: Normal - Psychological Associated symptoms: Normal affect, Normal mood - Skin Skin Temperature: Warm Skin Moisture: Dry Skin Color: Normal <YASMEEN MATHIS - Last Filed: 07/29/16 07:34> Course - Laboratory Result Diagrams: 07/29/16 06:00 07/29/16 06:00 <YASMEEN MATHIS - Last Filed: 07/29/16 07:34> - Laboratory Result Diagrams: 07/29/16 06:00 07/29/16 06:00 <LACI PERALES - Last Filed: 07/29/16 13:55> - Re-evaluation Re-evalutation: 07/29/16 07:24 Patient presents emergency room chiefly generalized abdominal pain nausea and had to loose bright red bloody stool since last night. Patient has an extensive past medical history including gastric ulcers has been seen and evaluated here numerous times and was admitted about 2 weeks ago inpatient was scoped at that time had ulcers and is followed by primary care and Dr. Mcgarry. Patient has had multiple ED visits in the past week and a half all of which she has been wanting IV Dilaudid and requesting it by name. Each of his workups have been negative and nonacute with no laboratory evaluation initially had a CT scan done it was felt not to be surgical again today he is resting comfortably in no acute distress with no acute abdominal guarding rebound rigidity and his labs are stable. At this point he is again requesting Dilaudid and Zofran I spoke with him extensively about treatment of chronic pain in the emergency department and that needs to be a primary care or pain specialist. I did a rectal examination on him there is retention of bright red blood but primarily it is mucosal brown stool. At this time his belly is nonacute for follow-up primary care and Dr. Flannery who both know him very well and any additional chronic pain management will be by them. Discussed specific reasons for ED return sooner (LACI PERALSE) - Vital Signs Vital signs: Temp Pulse Resp BP Pulse Ox 98.3 F 23 H 138/99 H 97 07/29/16 07:35 07/29/16 07:01 07/29/16 07:01 07/29/16 07:01 - Laboratory Laboratory results interpreted by me: 07/29/16 07/29/16 06:00 06:00 Hgb 11.3 L Hct 34.6 L MCV 75 L MCH 24.4 L RDW 16.3 H Sodium 136.0 L Total Protein 5.9 L Albumin 2.9 L - EKG Interpretation by Me Additional EKG results interpreted by me: 07/29/16 07:26 EKG interpreted by myself to develop sinus rhythm at 81 bpm with left ventricular hypertrophy no acute ST segment elevation or depression (LACI PERALES) Discharge <YASMEEN MATHIS - Last Filed: 07/29/16 07:34> <LACI PERALES - Last Filed: 07/29/16 13:55> - Discharge Clinical Impression: report bloody stool, narcotic seeking behavior Abdominal pain Qualifiers: Abdominal location: unspecified location Qualified Code(s): R10.9 - Unspecified abdominal pain Condition: Stable Disposition: HOME, SELF-CARE Additional Instructions: Abdominal Pain There are many causes of abdominal pain. Pain can mean a serious problem requiring surgery (such as appendicitis). It can also be an innocent problem that goes away on its own (such as a viral infection). Often, time must pass to determine the cause of pain. The physician does not feel that hospitalization is necessary, at present. Things may change within the next 24 hours. Call the doctor or come back for re- examination if any problems occur, such as: (1) Pain that becomes more severe, steady, or becomes concentrated in one specific area. Also, pain that is more severe with movement or coughing. (2) Vomiting that persists or becomes more frequent. (3) Blood in the vomitus, urine, or bowel movements. Blood in the stool may have a tarry or black appearance. (4) Shaking chills or fever greater than 100 degrees F. (5) The abdomen becomes more distended or swollen. (6) Bowel movements cease. (7) Failure to improve as expected. Rectal Bleeding, by history No definite cause has been found for the rectal bleeding you have experienced. Among the possible causes are internal or external hemorrhoids ( internal hemorrhoids can't be felt on the outside), an anal fissure (a crack at the anal ring), infections or inflammatory diseases of the colon, tumors or polyps, or diverticula (diverticula are outpouchings from the colon wall). To establish a cause for your bleeding (or at least make certain there is no serious problem such as a tumor), further evaluation will be necessary. This may include special X-rays, or passage of a scope up into the colon. Be sure to keep your follow-up appointment. Should you develop brisk bleeding, abdominal pain, fever, lightheadedness, or fever, call the doctor or return at once. Chronic Pain Control Stress, inactivity, and depression make pain more severe regardless of the cause of the pain. Stress and poor physical condition can cause pain such as headaches and backache. Relaxation: Rest in a quiet place with your eyes closed for 20 minutes twice daily. Concentrate on a pleasant image, or simply "feel" your breathing. Clear your mind. Stress management: Deal with your "stressors." Either take action, or eliminate the stressor from your life. Don't let things hang over you. Accept those things you can't change. Nutrition: Eat small, balanced meals -- don't skip, don't overeat. Meals should be high-carbohydrate, low-sugar, low-fat. Exercise: Exercise helps painful conditions and eases stress. Get 30 minutes of moderate exercise, five days a week. Do an activity that does not flare your pain. Precautions: Pain which continues to disrupt daily activities, or which changes in nature, requires a medical evaluation. Pain Clinic referral is available. We do not manage chronic pain in the Emergency Department. We will try to appropriately help you through an acute flare of your chronic painful condition , but for on-going chronic pain that does not improve, you will need to see your private doctor or mural painter. We do not provide repeated medication management of chronic painful conditions. If you wish, we can provide the name of local pain management physicians. Referrals: GODFREY PASTRANA MD [ACTIVE STAFF] - Follow up as needed (call to schedule follow up in 1-2 days return to er sooner for increasing worsening or new symptoms ALL chronic pain needs to be treated by primary physician, specialist, or chronic pain specialist and NOT the ed) Scribe Attestation: 07/29/16 07:19 I personally performed the services described in the documentation reviewed the documentation recorded by my scribe in my presence and it accurately and completely records my words and actions (LACI PERALES) Scribe Documentation - Scribe Written by Nina:: Nina Marcum, 07/29/2016 [id number] acting as scribe for :: Haresh <YASMEEN MATHIS - Last Filed: 07/29/16 07:34>
[2016-07-29 07:11] VITALS: BP 138/99
[2016-07-29 07:30] LABS: APPEARANCE,URINE CLEAR; BILIRUBIN,URINE NEGATIVE (NEGATIVE); GLUCOSE, URINE NEGATIVE (NEGATIVE); KETONES,URINE NEGATIVE (NEGATIVE); LEUKOCYTE ESTERASE,URINE NEGATIVE (NEGATIVE); NITRITE,URINE NEGATIVE (NEGATIVE); PROTEIN,URINE NEGATIVE (NEGATIVE); URINE SPECIFIC GRAVITY 1.009; UROBILINOGEN,URINE NEGATIVE mg/dL (<2.0)
--- NOTE | 2016-07-29 21:15 | EKG REPORT ---
SEVERITY:- ABNORMAL ECG - SINUS RHYTHM LEFT VENTRICULAR HYPERTROPHY : Confirmed by: Ashley Castellanos 29-Jul-2016 21:14:12
== END 2016-07-29 07:35 | disposition home or self-care (01) ==
LOC: ER 05:44
DX: K92.1 Melena (principal); R10.31 Right lower quadrant pain; R10.32 Left lower quadrant pain; R11.10 Vomiting, unspecified; I10 Essential (primary) hypertension; E11.9 Type 2 diabetes mellitus without complications; Z98.84 Bariatric surgery status
CPT/HCPCS: 36415; 80053; 81001; 83690; 85025; 93005; 93010; 99284

== ENCOUNTER 2016-11-08 11:58 | Inpatient (IN) | payer MEDICARE ==
--- NOTE | 2016-11-08 12:20 | ER Document Report ---
ED General - General Mode of Arrival: Medic Information source: Patient TRAVEL OUTSIDE OF THE [place] IN LAST 30 DAYS: No - HPI Associated symptoms: Other - see above <ABDOULAYE SHELBY - Last Filed: 11/08/16 13:02> <JOSE M MONTGOMERY - Last Filed: 11/08/16 16:31> - General Stated Complaint: POSSIBLE SYNCOPAL EPISODE Time Seen by Provider: 11/08/16 12:15 Notes: Patient is a 51 year old male who presents to the ED with complaints of possible syncopal episodes for the last 3-4 days. Patient states he has had "dizzy spells" and several falls in the last 3 days. Patient states he feels like he is passing out and has woken up on the floor following these falls. Patient states he has never had this before. He denies palpitations, SOB, diaphoresis, headache. Patient states he has been nauseous,had vomiting and diarrhea but denies abdominal pain. Patient denies blood in his stool. Patient states he did twist his left ankle and has pain in his left hand secondary to one of the falling episodes. (ABDOULAYE SHELBY) - Related Data Allergies/Adverse Reactions: aripiprazole [From [employer]] Adverse Reaction (Severe, Verified 07/20/16 08:03) "uncontrollable muscle tremors" Home Medications: Current Home Medications Pantoprazole Sodium [Protonix] 2 tab PO BID 11/08/16 [History] Past Medical History - General Information source: Patient - Social History Smoking Status: Unknown if Ever Smoked Family History: Reviewed & Not Pertinent, CAD, Hypertension, Other - ulcers father and sister - Past Medical History Cardiac Medical History: Reports: Hx Hypertension Pulmonary Medical History: Endocrine Medical History: Reports: Hx Diabetes Mellitus Type 2 - Since gastric bypass has been able to stop all medications Renal/ Medical History: Reports: Hx Kidney Stones - LEFT , "passed" multiple, ESWL x 2, "laser" surgery x 1 GI Medical History: Reports: Hx Gastroesophageal Reflux Disease, Hx Ulcer Musculoskeltal Medical History: Reports Hx Arthritis Skin Medical History: Reports Hx MRSA Psychiatric Medical History: Reports: Hx Bipolar Disorder, Hx Depression Traumatic Medical History: Reports: Hx Fractures - RT ankle 2010 Infectious Medical History: Past Surgical History: Reports: Hx Abdominal Surgery - Repair of complications from gastric bypass, Hx Appendectomy - 1975, Hx Bowel Surgery - bowel perforation 09/26/2015, May 2016, Hx Gastric Bypass Surgery - 02/19/13, Hx Orthopedic Surgery - Right below-knee amputation, Hx Tonsillectomy - 1978 - Immunizations Immunizations up to date: Yes Hx Diphtheria, Pertussis, Tetanus Vaccination: Yes Hx Pneumococcal Vaccination: 03/03/11 <ABDOULAYE SHELBY - Last Filed: 11/08/16 13:02> Review of Systems - Review of Systems Constitutional: See HPI. denies: Diaphoresis EENT: No symptoms reported Cardiovascular: See HPI, Syncope, Dizziness. denies: Palpitations Respiratory: See HPI. denies: Short of breath Gastrointestinal: See HPI, Diarrhea, Nausea, Vomiting. denies: Abdominal pain, Blood streaked bowels Genitourinary: No symptoms reported Male Genitourinary: No symptoms reported Musculoskeletal: See HPI, Other - left hand pain, left ankle pain and swelling Skin: See HPI, Other - abrasion on buttock, abrasion on left knee Hematologic/Lymphatic: No symptoms reported Neurological/Psychological: See HPI. denies: Headaches <ABDOULAYE SHELBY - Last Filed: 11/08/16 13:02> Physical Exam - General General appearance: Alert - HEENT Head: Normocephalic, Atraumatic Eyes: Normal Extraocular movements intact: Yes Pupils: PERRL Neck: Normal - Respiratory Respiratory status: No respiratory distress Breath sounds: Normal - Cardiovascular Rhythm: Regular Heart sounds: Normal auscultation Murmur: No - Abdominal Inspection: Normal Tenderness: Tender - some in the LUQ, mostly in the LLQ - Rectal Tenderness: No Stool: Heme negative Hemorrhoids: None Prostate: Normal - Extremities General upper extremity: Other - 2nd metacarpal on left hand is tender to palpation General lower extremity: Other - right BKA, left ankle has swelling to the lateral malleolus with ecchymosis through the left lateral lower leg with normal medal pulse and intact motor function and sensations, abrasion to left knee - Neurological Neuro grossly intact: Yes - Psychological Associated symptoms: Normal affect, Normal mood - Skin Skin Temperature: Warm Skin Moisture: Dry Skin Color: Pale Location of irregularity: Other - small linear abrasion across upper cleft of buttock, abrasion to left knee <ABDOULAYE SHELBY - Last Filed: 11/08/16 13:02> - Vital signs Vitals: BP 120/84 11/08/16 12:00 Course - Laboratory Result Diagrams: 11/08/16 12:10 11/08/16 12:10 <ABDOULAYE SHELBY - Last Filed: 11/08/16 13:02> - Laboratory Result Diagrams: 11/08/16 12:10 11/08/16 12:10 <JOSE M MONTGOMERY - Last Filed: 11/08/16 16:31> - Re-evaluation Re-evalutation: 11/08/16 12:39 EKG obtained at 12:06 PM shows sinus rhythm at a rate of 82 with normal intervals and axis. No acute change from prior in July 2016. Patient appears alert, communicative, and stable. He does have a degree of pallor on exam. His hemoglobin has returned at 5.8. We will perform a rectal exam to check for occult blood and initiate a transfusion of 2 units packed red blood cells for the patient's suspected acute anemia with syncope. 11/08/16 13:05 Rectal exam is heme negative. No stool in the vault. Reexamination of his abdomen continues to show mild to moderate discomfort in the left lower quadrant. The patient overall appears comfortable but stoic. We will obtain a CT scan through his belly due to no explanation for his acute anemia, the abdominal pain he currently has, and his complicated surgical history with gastric bypass. Patient's potassium level is 2.2. We will replace this low potassium level with IV potassium over the next 4 hours. 11/08/16 14:37 X-ray of the left ankle reveals a comminuted nondisplaced fracture of his distal fibula. X-rays of the left hand and chest reveal no acute pathology. 11/08/16 14:[address] Ornelas. He agrees with admission status post CT scan as long as there is no other issue indicating need for transfer or higher level care. CT and results pending. 11/08/16 16:31 Splint to left leg applied. I have discussed the case with my colleague, Dr. Moraes, who will check on the patient's CT scan, call Dr. Ornelas back, and facilitate his care from here. (JOSE M MONTGOMERY) - Vital Signs Vital signs: Temp Pulse Resp BP Pulse Ox 98.3 F 79 15 128/79 H 100 11/08/16 16:05 11/08/16 16:05 11/08/16 16:05 11/08/16 16:05 11/08/16 16:05 - Laboratory Laboratory results interpreted by me: 11/08/16 11/08/16 11/08/16 12:10 12:10 13:00 RBC 2.62 L Hgb 5.8 L Hct 17.6 L MCV 67 L MCH 22.1 L RDW 18.0 H Potassium 2.2 L* Chloride 115 H Carbon Dioxide 18 L BUN 6 L Creatinine 0.48 L Glucose 62 L Calcium 5.5 L* ALT 19 L Creatine Kinase 217 H Total Protein 3.6 L Albumin 1.7 L Lipase 16.2 L Crossmatch See Detail Procedures - Additional Procedures splint Additional Procedures: Other - Splint applied to left lower leg due to fracture , nondisplaced, distal fibula. Alignment is good. Distal sensation and circulation and motor function intact. <JOSE M MONTGOMERY - Last Filed: 11/08/16 16:31> Critical Care Note - Critical Care Note Total time excluding time spent on procedures (mins): 45 - This patient had syncope due to acute anemia and significantly low potassium level at 2.2. This required my focused attention and critical care. This included time to evaluate the patient, interpret lab results, order blood transfusion, and speak with consultants. <JOSE M MONTGOMERY - Last Filed: 11/08/16 16:31> Discharge <ABDOULAYE SHELBY - Last Filed: 11/08/16 13:02> - Discharge Admitting Provider: Gabriel <JOSE M MONTGOMERY - Last Filed: 11/08/16 16:31> - Discharge Clinical Impression: Abdominal pain Vomiting Qualifiers: Vomiting type: unspecified Vomiting Intractability: non-intractable Nausea presence: with nausea Qualified Code(s): R11.2 - Nausea with vomiting, unspecified Diarrhea Qualifiers: Diarrhea type: unspecified type Qualified Code(s): R19.7 - Diarrhea, unspecified Syncope Qualifiers: Encounter type: initial encounter Anemia Qualifiers: Anemia type: unspecified type Qualified Code(s): D64.9 - Anemia, unspecified Fracture, fibula Qualifiers: Encounter type: initial encounter Fibula location: distal Fracture type: closed Laterality: right Condition: Fair Disposition: ADMITTED INPATIENT Referrals: MERYL ORNELAS MD [Primary Care Provider] - Follow up as needed Scribe Documentation - Scribe Written by Scribe:: phillip Sharp, 11/08/2016, 1214 acting as scribe for :: Damien <ABDOULAYE SHELBY - Last Filed: 11/08/16 13:02>
[2016-11-08 12:29] LABS: ABSOLUTE EOSINOPHILS # (AUTO) 0.1 10^3/uL (0.0-0.6); ABSOLUTE LYMPHOCYTES (AUTO) 1.1 10^3/uL (0.5-4.7); ABSOLUTE MONOCYTES (AUTO) 0.6 10^3/uL (0.1-1.4); ABSOLUTE NEUT (AUTO) 5.9 10^3/uL (1.7-8.2); BASOPHILS % (AUTO) 0.3 % (0-2); EOSINOPHILS % (AUTO) 1.9 % (0-6); HEMATOCRIT 17.6 % (37.9-51.0); HGB HCT DIFFERENCE -0.2; LYMPHOCYTES % (AUTO) 14.3 % (13-45); MEAN CORPUSCULAR HEMOGLOBIN 22.1 pg (27.0-33.4); MEAN CORPUSCULAR HGB CONC 32.9 g/dL (32.0-36.0); MEAN CORPUSCULAR VOLUME 67 fl (80-97); MONOCYTES % (AUTO) 7.6 % (3-13); RED BLOOD COUNT 2.62 10^6/uL (4.35-5.55); SEGMENTED NEUTROPHILS % (AUTO) 75.9 % (42-78); WHITE BLOOD COUNT 7.7 10^3/uL (4.0-10.5)
[2016-11-08 12:31] LABS: HEMOGLOBIN 5.8 g/dL (13.5-17.0)
[2016-11-08] MEDS ORDERED: NORMAL SALINE 250 ML IV PRN ×2 (12:34)
[2016-11-08 12:45] LABS: ALANINE AMINOTRANSFERASE 19 U/L (21-72); ALBUMIN 1.7 g/dL (3.5-5.0); ALKALINE PHOSPHATASE 52 U/L (38-126); ANION GAP 7 (5-19); ASPARTATE AMINO TRANSFERASE 18 U/L (17-59); BILIRUBIN,DIRECT 0.3 mg/dL (0.0-0.4); BILIRUBIN,TOTAL 0.4 mg/dL (0.2-1.3); BLOOD UREA NITROGEN 6 mg/dL (7-20); CARBON DIOXIDE 18 mmol/L (22-30); CHLORIDE 115 mmol/L (98-107); CREATINE KINASE 217 U/L (55-170); CREATININE RESULT 0.48 mg/dL (0.52-1.25); GLUCOSE 62 mg/dL (75-110); LIPASE 16.2 U/L (23-300); SODIUM 139.8 mmol/L (137-145); TOTAL PROTEIN 3.6 g/dL (6.3-8.2)
[2016-11-08] MEDS ORDERED: PROMETHAZINE HCL INJ 25 MG/1 ML VIAL ONE ×2 (12:53→14:27)
[2016-11-08 12:59] LABS: CALCIUM 5.5 mg/dL (8.4-10.2); POTASSIUM 2.2 mmol/L (3.6-5.0)
[2016-11-08] MEDS ORDERED: POTASSI CL 40 MEQ/NS 1L 1,000 ML IV ONE (13:01)
--- NOTE | 2016-11-08 13:08 | RADIOLOGY REPORT (SQ) ---
EXAM DESCRIPTION: ANKLE LEFT COMPLETE COMPLETED DATE/TIME: 11/08/2016 12:51 pm REASON FOR STUDY: fall, swelling, bruising COMPARISON: None. NUMBER OF VIEWS: Three views. TECHNIQUE: AP, lateral, and oblique radiographic images acquired of the left ankle. LIMITATIONS: None. FINDINGS: MINERALIZATION: Normal. BONES: Acute comminuted nondisplaced spiral fracture distal fibula. Tibia, talus, hindfoot otherwise unremarkable. Small plantar and dorsal calcaneal spurs. JOINTS: There is widening of the medial ankle mortise. Ankle joint effusion is present. SOFT TISSUES: Diffuse lateral soft tissue swelling. OTHER: No other significant finding. IMPRESSION: Acute comminuted nondisplaced spiral fracture distal fibula with widening of the medial ankle mortise. Associated lateral soft tissue swelling and tibiotalar joint effusion TECHNICAL DOCUMENTATION: JOB ID: [id number] [employer]- All Rights Reserved
--- NOTE | 2016-11-08 13:10 | RADIOLOGY REPORT (SQ) ---
EXAM DESCRIPTION: HAND LEFT 3 VIEWS COMPLETED DATE/TIME: 11/08/2016 12:51 pm REASON FOR STUDY: fall, pain to left hand (2nd metacarp). COMPARISON: None. EXAM PARAMETERS: NUMBER OF VIEWS: Three views. TECHNIQUE: AP, lateral and oblique radiographic images acquired of the left hand. LIMITATIONS: None. FINDINGS: MINERALIZATION: Normal. BONES: No acute fracture or dislocation. No worrisome bone lesions. JOINTS: No effusions. SOFT TISSUES: No soft tissue swelling. No foreign body. OTHER: No other significant finding. IMPRESSION: NEGATIVE STUDY OF THE LEFT HAND. NO RADIOGRAPHIC EVIDENCE OF ACUTE INJURY. TECHNICAL DOCUMENTATION: JOB ID: [id number] [employer]- All Rights Reserved
--- NOTE | 2016-11-08 13:11 | RADIOLOGY REPORT (SQ) ---
EXAM DESCRIPTION: CHEST PA/LAT COMPLETED DATE/TIME: 11/08/2016 12:51 pm REASON FOR STUDY: syncope COMPARISON: Two-view chest 07/11/2016, 06/26/2016 AP chest 06/14/2015 EXAM PARAMETERS: NUMBER OF VIEWS: two views TECHNIQUE: Digital Frontal and Lateral radiographic views of the chest acquired. RADIATION DOSE: NA LIMITATIONS: none FINDINGS: LUNGS AND PLEURA: No opacities, masses or pneumothorax. No pleural effusion. MEDIASTINUM AND HILAR STRUCTURES: No masses or contour abnormalities. HEART AND VASCULAR STRUCTURES: Heart normal size. No evidence for failure. BONES: No acute findings. HARDWARE: None in the chest. OTHER: No other significant finding. IMPRESSION: NO SIGNIFICANT RADIOGRAPHIC FINDING IN THE CHEST. TECHNICAL DOCUMENTATION: JOB ID: [id number] [employer]- All Rights Reserved
--- NOTE | 2016-11-08 13:21 | EKG REPORT ---
SEVERITY:- ABNORMAL ECG - SINUS RHYTHM NONSPECIFIC T ABNORMALITIES, LATERAL LEADS : Confirmed by: Cricket Pantoja MD 08-Nov-2016 13:20:09
[2016-11-08] MEDS ORDERED: METOCLOPRAMIDE HCL INJ/PF 10 MG/2 ML SDV IV ONE (17:18)
[2016-11-08] MEDS ORDERED: METOCLOPRAMIDE HCL INJ/PF 10 MG/2 ML SDV ONE (17:20)
--- NOTE | 2016-11-08 18:18 | RADIOLOGY REPORT (SQ) ---
EXAM DESCRIPTION: CT ABD/PELVIS WITH IV ORAL COMPLETED DATE/TIME: 11/08/2016 5:48 pm REASON FOR STUDY: abd pain LLQ, hx of Gas. bypass. COMPARISON: 07/18/2016 TECHNIQUE: CT scan of the abdomen and pelvis performed using helical scanning technique with dynamic intravenous contrast injection. No oral contrast. Images reviewed with lung, soft tissue, and bone windows. Reconstructed coronal and sagittal MPR images reviewed. Delayed images for evaluation of the urinary system also acquired. All images stored on PACS. All CT scanners at this facility use dose modulation, iterative reconstruction, and/or weight based d osing when appropriate to reduce radiation dose to as low as reasonably achievable (ALARA). [facility]: Dose Right [facility]: CareDose [facility]: Dose Right [facility]: Teradose 4D [facility]: [email or web address] CONTRAST TYPE AND DOSE: contrast/concentration: Isovue 370.00 mg/ml; Total Contrast Delivered: 92.0 ml; Total Saline Delivered: 30.0 ml RENAL FUNCTION: GFR > 60. RADIATION DOSE: Up-to-date CT equipment and radiation dose reduction techniques were employed. CTDIv ol: 13.6 - 17.4 mGy. DLP: 1912 mGy-cm.. LIMITATIONS: None. FINDINGS: LOWER CHEST: No significant findings. No nodules or infiltrates. LIVER: Normal size. No masses. No dilated ducts. SPLEEN: Normal size. No focal lesions. PANCREAS: No masses. No significant calcifications. No adjacent inflammation or peripancreatic fluid collections. Pancreatic duct not dilated. GALLBLADDER: No identified stones by CT criteria. No inflammatory changes to suggest cholecystitis. ADRENAL GLANDS: No significant masses or asymmetry. RIGHT KIDNEY AND URETER: No solid masses. Small parenchymal cyst. No significant calcifications. No hydronephrosis or hydroureter. LEFT KIDNEY AND URETER: No solid masses. No significant calcifications. No hydronephrosis or hydr oureter. AORTA AND VESSELS: IVC filter is present in stable position. No aneurysm. No dissection. Renal arter ies, SMA, celiac without significant stenosis. RETROPERITONEUM: No retroperitoneal adenopathy, hemorrhage or masses. BOWEL AND PERITONEAL CAVITY: No masses or inflammatory changes. No free fluid or peritoneal masses. APPENDIX: Normal. PELVIS: No mass. No fluid collection. Normal bladder. ABDOMINAL WALL: No masses. No hernias. BONES: No acute findings. OTHER: No other significant finding. IMPRESSION: NO SIGNIFICANT OR ACUTE FINDING IN THE ABDOMEN OR PELVIS ON CT SCAN WITH IV CONTRAST. TECHNICAL DOCUMENTATION: JOB ID: [id number] Quality ID # [id number]: Final reports with documentation of one or more dose reduction techniques (e.g., Au tomated exposure control, adjustment of the mA and/or kV according to patient size, use of iterative reconstruction technique) 2010 [employer]- All Rights Reserved
[2016-11-08] MEDS ORDERED: (PENDING PHARMACY ID) (Quetiapine Fumarate [Seroquel] 600 MG) PO SCH (22:00)
[2016-11-08] MEDS ORDERED: PANTOPRAZOLE SODIUM PO SCH (22:00)
[2016-11-08] MEDS ORDERED: OLANZAPINE 40 MG PO SCH (22:00)
[2016-11-08] MEDS ORDERED: GABAPENTIN 300 MG CAPSULE PO SCH (22:00)
[2016-11-08] MEDS ORDERED: (PENDING PHARMACY ID) (Trazodone Hcl [Desyrel] 200 MG) PO SCH (22:00)
[2016-11-08 22:11] LABS: PROTHROMBIN TIME 14.5 SEC (11.4-15.4)
[2016-11-08 22:12] LABS: PARTIAL THROMBOPLASTIN TIME 42.2 SEC (23.5-35.8)
[2016-11-08 22:23] LABS: LIPASE 36.6 U/L (23-300); MAGNESIUM 1.8 mg/dL (1.6-2.3); PHOSPHORUS 3.3 mg/dL (2.5-4.5)
[2016-11-08 22:26] LABS: URINE CREATININE 87.6 mg/dL (22-328); URINE PROTEIN 31.2 mg/dL (<12)
[2016-11-08 22:44] LABS: CREATINE KINASE MB 0.42 ng/mL (<4.55)
[2016-11-08 22:47] LABS: TROPONIN I < 0.012 ng/mL
[2016-11-08] MEDS ORDERED: TRAZODONE HCL 50 MG TABLET PO ONE (23:00)
[2016-11-08 23:02] LABS: THYROID STIMULATING HORMONE 0.08 uIU/mL (0.47-4.68)
[2016-11-08 23:15] LABS: URINE BARBITURATES SCREEN NEGATIVE; URINE METHADONE SCREEN NEGATIVE; URINE OPIATES LOW NEGATIVE; URINE PHENCYCLIDINE SCREEN NEGATIVE
[2016-11-08 23:20] LABS: URINE CREATININE 86.6 mg/dL (22-328); URINE POTASSIUM 15.6 mmol/L (17-99)
[2016-11-08] MEDS ORDERED: GABAPENTIN 300 MG CAPSULE PO ONE (23:30)
[2016-11-08] MEDS ORDERED: OLANZAPINE 5 MG TABLET PO ONE (23:30)
[2016-11-08] MEDS ORDERED: QUETIAPINE FUMARATE 100 MG TABLET PO ONE (23:30)
[2016-11-08] MEDS: PROMETHAZINE HCL 25 MG TABLET PO SCH (23:47)
[2016-11-08 23:51] LABS: HEMATOCRIT 23.1 % (37.9-51.0); HGB HCT DIFFERENCE 0.3; MEAN CORPUSCULAR HEMOGLOBIN 24.1 pg (27.0-33.4); MEAN CORPUSCULAR HGB CONC 33.8 g/dL (32.0-36.0); RED BLOOD COUNT 3.24 10^6/uL (4.35-5.55); RED CELL DISTRIBUTION WIDTH 22.5 % (11.5-14.0); WHITE BLOOD COUNT 8.4 10^3/uL (4.0-10.5)
[2016-11-08 23:55] LABS: HEMOGLOBIN 7.8 g/dL (13.5-17.0); MEAN CORPUSCULAR VOLUME 71 fl (80-97)
[2016-11-09 00:25] LABS: APPEARANCE,URINE CLEAR; BILIRUBIN,URINE NEGATIVE (NEGATIVE); GLUCOSE, URINE NEGATIVE (NEGATIVE); KETONES,URINE NEGATIVE (NEGATIVE); LEUKOCYTE ESTERASE,URINE NEGATIVE (NEGATIVE); NITRITE,URINE NEGATIVE (NEGATIVE); PROTEIN,URINE NEGATIVE (NEGATIVE); URINE SPECIFIC GRAVITY 1.029
[2016-11-09] MEDS ORDERED: ROPINIROLE HCL 0.25 MG TABLET ONE (01:24)
[2016-11-09] MEDS: ROPINIROLE HCL 0.25 MG TABLET PO SCH ×4 (01:28→18:55)
[2016-11-09 03:30] LABS: HGB HCT DIFFERENCE -0.2; MEAN CORPUSCULAR HEMOGLOBIN 23.3 pg (27.0-33.4); MEAN CORPUSCULAR HGB CONC 33.3 g/dL (32.0-36.0); MEAN CORPUSCULAR VOLUME 70 fl (80-97); RED BLOOD COUNT 3.28 10^6/uL (4.35-5.55); RED CELL DISTRIBUTION WIDTH 22.6 % (11.5-14.0)
[2016-11-09 03:36] LABS: ALANINE AMINOTRANSFERASE 29 U/L (21-72); ALBUMIN 2.8 g/dL (3.5-5.0); ALKALINE PHOSPHATASE 89 U/L (38-126); ANION GAP 9 (5-19); ASPARTATE AMINO TRANSFERASE 25 U/L (17-59); BILIRUBIN,DIRECT 0.4 mg/dL (0.0-0.4); BILIRUBIN,TOTAL 1.1 mg/dL (0.2-1.3); BLOOD UREA NITROGEN 6 mg/dL (7-20); CALCIUM 8.8 mg/dL (8.4-10.2); CARBON DIOXIDE 26 mmol/L (22-30); CHLORIDE 104 mmol/L (98-107); CHOLESTEROL 122.12 mg/dL (0-200); CREATININE RESULT 0.68 mg/dL (0.52-1.25); Direct HDL 26 mg/dL (>40); GLUCOSE 92 mg/dL (75-110); SODIUM 138.8 mmol/L (137-145); TOTAL PROTEIN 5.5 g/dL (6.3-8.2); TRIGLYCERIDES 94 mg/dL (<150)
[2016-11-09 03:43] LABS: BASOPHILS % (MANUAL) 1 % (0-2); EOSINOPHILS % (MANUAL) 5 % (0-6); LYMPHOCYTES % (MANUAL) 19 % (13-45); TOTAL CELLS COUNTED 100
[2016-11-09 03:46] LABS: DIRECT LDL 77 mg/dL (<100)
[2016-11-09 03:47] LABS: ANISOCYTOSIS 3+; CREATINE KINASE MB 0.24 ng/mL (<4.55); HYPOCHROMASIA 1+; MICROCYTOSIS 1+; POLYCHROMASIA 1+; TOXIC GRANULATION 1+
[2016-11-09 03:48] LABS: HEMOGLOBIN 7.6 g/dL (13.5-17.0)
[2016-11-09 03:50] LABS: TROPONIN I < 0.012 ng/mL
[2016-11-09 03:54] LABS: POTASSIUM 3.6 mmol/L (3.6-5.0)
[2016-11-09] MEDS: PROMETHAZINE HCL 25 MG TABLET PO SCH ×3 (05:35→18:55)
[2016-11-09] MEDS: METRONIDAZOLE 500 MG TABLET PO SCH ×3 (05:35→22:16)
[2016-11-09] MEDS: GABAPENTIN 300 MG CAPSULE PO SCH ×3 (05:35→22:16)
[2016-11-09] MEDS ORDERED: (PENDING PHARMACY ID) (Escitalopram Oxalate [Lexapro] 40 MG) PO SCH (08:00)
[2016-11-09] MEDS: ESCITALOPRAM OXALATE 10 MG TABLET PO SCH (08:27)
[2016-11-09] MEDS: LANSOPRAZOLE 30 MG TAB.RAP.DR PO SCH ×2 (08:27→16:06)
[2016-11-09] MEDS: TAMSULOSIN HCL 0.4 MG CAP.SR.24H PO SCH (09:43)
[2016-11-09 10:22] LABS: CREATINE KINASE MB < 0.22 ng/mL (<4.55); TROPONIN I < 0.012 ng/mL
[2016-11-09] MEDS: ONDANSETRON HCL 8 MG TABLET PO PRN (10:35)
--- NOTE | 2016-11-09 14:35 | PDOC H&P ---
History of Present Illness Admission Date/PCP: 11/08/16 21:02 MERYL ORNELAS MD History of Present Illness: YESSY ALMODOVAR is a 51 year old male, he came to the emergency room for evaluation of loss of consciousness, fall, he stated that he has had several falls the last few days he said that he found the same on the floor and does not remember how he got to the floor. The emergency room was evaluated x-ray was done, x-ray of the left ankle revealed comminuted nondisplaced fracture of distal fibula the blood work revealed hemoglobin 5.8 with no evidence of blood loss. He also had a CAT scan of the abdomen and pelvis in the emergency room for evaluation of abdominal pain the CAT scan was negative for any acute pathology. He was also found to have severe hypokalemia, 2.2, he admitted to a history of diffuse diarrhea the last 3 days the stool study was positive for C. difficile toxin. Past Medical History Cardiac Medical History: Reports: Hypertension Pulmonary Medical History: Endocrine Medical History: Reports: Diabetes Mellitus Type 2 - Since gastric bypass has been able to stop all medications GI Medical History: Reports: Gastroesophageal Reflux Disease Musculoskeltal Medical History: Reports: Arthritis Psychiatric Medical History: Reports: Bipolar Disorder, Depression Hematology: Past Surgical History Past Surgical History: Reports: Appendectomy - 1975, Gastric Bypass Surgery - , Orthopedic Surgery - Right below-knee amputation, Tonsillectomy - 1978 Social History Smoking Status: Never Smoker Frequency of Alcohol Use: None Hx Recreational Drug Use: No Drugs: None Hx Prescription Drug Abuse: No - Advance Directive Resuscitation Status: Full Code Family History Family History: Reviewed & Not Pertinent, CAD, Hypertension, Other - ulcers father and sister Parental Family History Reviewed: Yes Children Family History Reviewed: Yes Sibling(s) Family History Reviewed.: Yes Medication/Allergy Home Medications: Escitalopram Oxalate [Lexapro] 40 mg PO QAM 06/26/16 Gabapentin [Neurontin 300 mg Capsule] 300 mg PO Q8 06/26/16 Olanzapine [Zyprexa] 40 mg PO QHS 06/26/16 Quetiapine Fumarate [Seroquel] 600 mg PO QHS 06/26/16 Ropinirole HCl [Requip 0.25 mg Tablet] 0.25 mg PO Q6 06/26/16 Trazodone HCl [Desyrel] 200 mg PO QHS 07/12/16 Cyclobenzaprine HCl [Flexeril 10 mg Tablet] 10 mg PO Q8HP PRN 11/08/16 Pantoprazole Sodium [Protonix] 2 tab PO Q12 11/08/16 Promethazine HCl 25 mg PO Q6 11/08/16 Tamsulosin HCl [Flomax 0.4 mg Cap.sr] 0.8 mg PO DAILY 11/08/16 Allergies/Adverse Reactions: aripiprazole [From [facility]] Adverse Reaction (Severe, Verified 07/20/16 08:03) "uncontrollable muscle tremors" Review of Systems Constitutional: PRESENT: anorexia, weakness Eyes: ABSENT: visual disturbances Ears: ABSENT: hearing changes Cardiovascular: ABSENT: chest pain, dyspnea on exertion, edema, orthropnea, palpitations Respiratory: ABSENT: cough, hemoptysis Gastrointestinal: PRESENT: abdominal pain, diarrhea Genitourinary: ABSENT: dysuria, hematuria Musculoskeletal: PRESENT: deformity Integumentary: ABSENT: rash, wounds Neurological: PRESENT: syncope Psychiatric: ABSENT: anxiety, depression, homidical ideation, suicidal ideation Endocrine: ABSENT: cold intolerance, heat intolerance, menstrual abnormalities, polydipsia, polyuria Hematologic/Lymphatic: ABSENT: easy bleeding, easy bruising, lymphadenopathy Physical Exam Vital Signs: Temp Pulse Resp BP Pulse Ox 99.1 F 83 17 128/77 H 94 11/09/16 12:23 11/09/16 12:23 11/09/16 12:23 11/09/16 12:23 11/09/16 12:23 Intake & Output 11/08/16 11/09/16 11/10/16 06:59 06:59 06:59 Intake Total 1240 Output Total 1700 Balance -460 Weight 92.7 kg Results Laboratory Results: 11/09/16 03:11 11/09/16 03:11 11/08/16 11/08/16 11/08/16 21:33 21:40 21:40 WBC RBC Hgb Hct MCV MCH MCHC RDW Plt Count Seg Neutrophils % Lymphocytes % Monocytes % Eosinophils % Basophils % Absolute Neutrophils Absolute Lymphocytes Absolute Monocytes Absolute Eosinophils Absolute Basophils Retic Count (auto) Absolute Retic Sodium Potassium Chloride Carbon Dioxide Anion Gap BUN Creatinine Est GFR ( Amer) Est GFR (Non-Af Amer) Glucose Calcium Phosphorus 3.3 Magnesium 1.8 Total Bilirubin AST ALT Alkaline Phosphatase Ammonia 22.9 Total Protein Albumin Triglycerides Cholesterol LDL Cholesterol Direct VLDL Cholesterol HDL Cholesterol Amylase 106 Lipase 36.6 TSH Free T4 Urine Color YELLOW Urine Appearance CLEAR Urine pH 6.0 Ur Specific Tucker 1.029 Urine Protein NEGATIVE Urine Glucose (UA) NEGATIVE Urine Ketones NEGATIVE Urine Blood NEGATIVE Urine Nitrite NEGATIVE Ur Leukocyte Esterase NEGATIVE Urine WBC (Auto) 1 11/08/16 11/08/16 11/08/16 21:40 21:40 23:35 WBC 8.4 RBC 3.24 L Hgb 7.8 L Hct 23.1 L MCV 71 L D MCH 24.1 L MCHC 33.8 RDW 22.5 H Plt Count 335 Seg Neutrophils % Lymphocytes % Monocytes % Eosinophils % Basophils % Absolute Neutrophils Absolute Lymphocytes Absolute Monocytes Absolute Eosinophils Absolute Basophils Retic Count (auto) 2.20 Absolute Retic 0.071 Sodium Potassium Chloride Carbon Dioxide Anion Gap BUN Creatinine Est GFR ( Amer) Est GFR (Non-Af Amer) Glucose Calcium Phosphorus Magnesium Total Bilirubin AST ALT Alkaline Phosphatase Ammonia Total Protein Albumin Triglycerides Cholesterol LDL Cholesterol Direct VLDL Cholesterol HDL Cholesterol Amylase Lipase TSH 0.08 L Free T4 1.07 Urine Color Urine Appearance Urine pH Ur Specific Tucker Urine Protein Urine Glucose (UA) Urine Ketones Urine Blood Urine Nitrite Ur Leukocyte Esterase Urine WBC (Auto) 11/09/16 11/09/16 03:11 03:11 WBC 8.0 RBC 3.28 L Hgb 7.6 L Hct 23.0 L MCV 70 L MCH 23.3 L MCHC 33.3 RDW 22.6 H Plt Count 342 Seg Neutrophils % Not Reportable Lymphocytes % Not Reportable Monocytes % Not Reportable Eosinophils % Not Reportable Basophils % Not Reportable Absolute Neutrophils Not Reportable Absolute Lymphocytes Not Reportable Absolute Monocytes Not Reportable Absolute Eosinophils Not Reportable Absolute Basophils Not Reportable Retic Count (auto) Absolute Retic Sodium 138.8 Potassium 3.6 D Chloride 104 Carbon Dioxide 26 Anion Gap 9 BUN 6 L Creatinine 0.68 Est GFR ( Amer) > 60 Est GFR (Non-Af Amer) > 60 Glucose 92 Calcium 8.8 Phosphorus Magnesium Total Bilirubin 1.1 AST 25 ALT 29 Alkaline Phosphatase 89 Ammonia Total Protein 5.5 L Albumin 2.8 L Triglycerides 94 Cholesterol 122.12 LDL Cholesterol Direct 77 VLDL Cholesterol 19.0 HDL Cholesterol 26 L Amylase Lipase TSH Free T4 Urine Color Urine Appearance Urine pH Ur Specific Tucker Urine Protein Urine Glucose (UA) Urine Ketones Urine Blood Urine Nitrite Ur Leukocyte Esterase Urine WBC (Auto) 11/08/16 11/09/16 11/09/16 21:40 03:11 09:18 CK-MB (CK-2) 0.42 0.24 < 0.22 Troponin I < 0.012 < 0.012 < 0.012 Impressions: Abdomen/Pelvis CT 11/08/16 00:00 IMPRESSION: NO SIGNIFICANT OR ACUTE FINDING IN THE ABDOMEN OR PELVIS ON CT SCAN WITH IV CONTRAST. Chest X-Ray 11/08/16 12:18 IMPRESSION: NO SIGNIFICANT RADIOGRAPHIC FINDING IN THE CHEST. Ankle X-Ray 11/08/16 12:19 IMPRESSION: Acute comminuted nondisplaced spiral fracture distal fibula with widening of the medial ankle mortise. Associated lateral soft tissue swelling and tibiotalar joint effusion Hand X-Ray 11/08/16 12:19 IMPRESSION: NEGATIVE STUDY OF THE LEFT HAND. NO RADIOGRAPHIC EVIDENCE OF ACUTE INJURY. Assessment & Plan - Diagnosis (1) Microcytic anemia Is this a current diagnosis for this admission?: Yes Plan: He has severe microcytic anemia hemoglobin is 5.8 MCV 67 the reticulocyte count is normal suggesting a normal bone marrow function. Patient denied any passage of bloody stool or black melanotic stool. He has a history of gastric bypass he is probably not absorbing iron from his GI tract due to rerouting GI tract from gastric bypass. He will need blood transfusion and probably will need iron infusion when discharged from the hospital (2) Hypokalemia Is this a current diagnosis for this admission?: Yes Plan: He has severe hypokalemia most likely from GI loss the urine potassium is 15.6 suggesting that the severe hyperkalemia is not from renal loss, the urine sodium is 17 suggesting dehydration (3) Clostridium difficile enterocolitis Is this a current diagnosis for this admission?: Yes Plan: Start flagyl PO (4) Nondisplaced comminuted fracture of shaft of left fibula Qualifiers: Encounter type: initial encounter Fracture type: closed Qualified Code(s) : S82.455A - Nondisplaced comminuted fracture of shaft of left fibula, initial encounter for closed fracture Is this a current diagnosis for this admission?: Yes Plan: Orthopedic consultation will be obtained (5) Syncope Qualifiers: Syncope type: unspecified Qualified Code(s): R55 - Syncope and collapse Is this a current diagnosis for this admission?: Yes
[2016-11-09] MEDS ORDERED: NORMAL SALINE 250 ML IV PRN ×2 (14:42)
--- NOTE | 2016-11-09 14:42 | PDOC PROGRESS REPORT ---
Subjective Progress Note for:: 11/09/16 Subjective:: Patient was admitted yesterday when he presented with severe hypokalemia due to diarrhea severe anemia most likely due to inadequate iron absorption from GI tract, syncope spell. He was transfused with 2 units of packed red blood cells yesterday the hemoglobin from today's lab work is 7 he will need to be more units of blood. Physical Exam Vital Signs: Temp Pulse Resp BP Pulse Ox 99.1 F 90 17 128/77 H 94 11/09/16 12:23 11/09/16 14:00 11/09/16 12:23 11/09/16 12:23 11/09/16 12:23 Intake & Output 11/08/16 11/09/16 11/10/16 06:59 06:59 06:59 Intake Total 1240 1080 Output Total 1700 750 Balance -460 330 Weight 92.7 kg General appearance: PRESENT: mild distress Eye exam: PRESENT: PERRLA Respiratory exam: PRESENT: clear to auscultation jorge Cardiovascular exam: PRESENT: +S1, +S2 GI/Abdominal exam: PRESENT: soft Neurological exam: PRESENT: alert Results Laboratory Results: 11/09/16 03:11 11/09/16 03:11 11/08/16 11/08/16 11/08/16 21:33 21:40 21:40 WBC RBC Hgb Hct MCV MCH MCHC RDW Plt Count Seg Neutrophils % Lymphocytes % Monocytes % Eosinophils % Basophils % Absolute Neutrophils Absolute Lymphocytes Absolute Monocytes Absolute Eosinophils Absolute Basophils Retic Count (auto) Absolute Retic Sodium Potassium Chloride Carbon Dioxide Anion Gap BUN Creatinine Est GFR ( Amer) Est GFR (Non-Af Amer) Glucose Calcium Phosphorus 3.3 Magnesium 1.8 Total Bilirubin AST ALT Alkaline Phosphatase Ammonia 22.9 Total Protein Albumin Triglycerides Cholesterol LDL Cholesterol Direct VLDL Cholesterol HDL Cholesterol Amylase 106 Lipase 36.6 TSH Free T4 Urine Color YELLOW Urine Appearance CLEAR Urine pH 6.0 Ur Specific Kite 1.029 Urine Protein NEGATIVE Urine Glucose (UA) NEGATIVE Urine Ketones NEGATIVE Urine Blood NEGATIVE Urine Nitrite NEGATIVE Ur Leukocyte Esterase NEGATIVE Urine WBC (Auto) 1 11/08/16 11/08/16 11/08/16 21:40 21:40 23:35 WBC 8.4 RBC 3.24 L Hgb 7.8 L Hct 23.1 L MCV 71 L D MCH 24.1 L MCHC 33.8 RDW 22.5 H Plt Count 335 Seg Neutrophils % Lymphocytes % Monocytes % Eosinophils % Basophils % Absolute Neutrophils Absolute Lymphocytes Absolute Monocytes Absolute Eosinophils Absolute Basophils Retic Count (auto) 2.20 Absolute Retic 0.071 Sodium Potassium Chloride Carbon Dioxide Anion Gap BUN Creatinine Est GFR ( Amer) Est GFR (Non-Af Amer) Glucose Calcium Phosphorus Magnesium Total Bilirubin AST ALT Alkaline Phosphatase Ammonia Total Protein Albumin Triglycerides Cholesterol LDL Cholesterol Direct VLDL Cholesterol HDL Cholesterol Amylase Lipase TSH 0.08 L Free T4 1.07 Urine Color Urine Appearance Urine pH Ur Specific Kite Urine Protein Urine Glucose (UA) Urine Ketones Urine Blood Urine Nitrite Ur Leukocyte Esterase Urine WBC (Auto) 11/09/16 11/09/16 03:11 03:11 WBC 8.0 RBC 3.28 L Hgb 7.6 L Hct 23.0 L MCV 70 L MCH 23.3 L MCHC 33.3 RDW 22.6 H Plt Count 342 Seg Neutrophils % Not Reportable Lymphocytes % Not Reportable Monocytes % Not Reportable Eosinophils % Not Reportable Basophils % Not Reportable Absolute Neutrophils Not Reportable Absolute Lymphocytes Not Reportable Absolute Monocytes Not Reportable Absolute Eosinophils Not Reportable Absolute Basophils Not Reportable Retic Count (auto) Absolute Retic Sodium 138.8 Potassium 3.6 D Chloride 104 Carbon Dioxide 26 Anion Gap 9 BUN 6 L Creatinine 0.68 Est GFR ( Amer) > 60 Est GFR (Non-Af Amer) > 60 Glucose 92 Calcium 8.8 Phosphorus Magnesium Total Bilirubin 1.1 AST 25 ALT 29 Alkaline Phosphatase 89 Ammonia Total Protein 5.5 L Albumin 2.8 L Triglycerides 94 Cholesterol 122.12 LDL Cholesterol Direct 77 VLDL Cholesterol 19.0 HDL Cholesterol 26 L Amylase Lipase TSH Free T4 Urine Color Urine Appearance Urine pH Ur Specific Kite Urine Protein Urine Glucose (UA) Urine Ketones Urine Blood Urine Nitrite Ur Leukocyte Esterase Urine WBC (Auto) 11/08/16 11/09/16 11/09/16 21:40 03:11 09:18 CK-MB (CK-2) 0.42 0.24 < 0.22 Troponin I < 0.012 < 0.012 < 0.012 Impressions: Abdomen/Pelvis CT 11/08/16 00:00 IMPRESSION: NO SIGNIFICANT OR ACUTE FINDING IN THE ABDOMEN OR PELVIS ON CT SCAN WITH IV CONTRAST. Chest X-Ray 11/08/16 12:18 IMPRESSION: NO SIGNIFICANT RADIOGRAPHIC FINDING IN THE CHEST. Ankle X-Ray 09/08/17 12:19 IMPRESSION: Acute comminuted nondisplaced spiral fracture distal fibula with widening of the medial ankle mortise. Associated lateral soft tissue swelling and tibiotalar joint effusion Hand X-Ray 11/08/16 12:19 IMPRESSION: NEGATIVE STUDY OF THE LEFT HAND. NO RADIOGRAPHIC EVIDENCE OF ACUTE INJURY. Assessment & Plan - Diagnosis (1) Microcytic anemia Is this a current diagnosis for this admission?: Yes Plan: Transfuse 2 more units of packed red blood cells (2) Hypokalemia Is this a current diagnosis for this admission?: Yes (3) Clostridium difficile enterocolitis Is this a current diagnosis for this admission?: Yes Plan: continue Flagyl (4) Nondisplaced comminuted fracture of shaft of left fibula Qualifiers: Encounter type: initial encounter Fracture type: closed Qualified Code(s) : S82.455A - Nondisplaced comminuted fracture of shaft of left fibula, initial encounter for closed fracture Is this a current diagnosis for this admission?: Yes (5) Syncope Qualifiers: Syncope type: unspecified Qualified Code(s): R55 - Syncope and collapse Is this a current diagnosis for this admission?: Yes
[2016-11-09] MEDS ORDERED: ACETAMINOPHEN 325 MG TABLET ONE (20:38)
[2016-11-09] MEDS: TRAZODONE HCL 50 MG TABLET PO SCH (22:16)
[2016-11-09] MEDS: QUETIAPINE FUMARATE 100 MG TABLET PO SCH (22:16)
[2016-11-09] MEDS: OLANZAPINE 5 MG TABLET PO SCH (22:16)
[2016-11-10] MEDS: PROMETHAZINE HCL 25 MG TABLET PO SCH ×5 (00:25→23:46)
[2016-11-10] MEDS: ROPINIROLE HCL 0.25 MG TABLET PO SCH ×5 (00:26→23:46)
[2016-11-10 05:00] LABS: HEMATOCRIT 26.8 % (37.9-51.0); HEMOGLOBIN 8.8 g/dL (13.5-17.0); HGB HCT DIFFERENCE -0.4; MEAN CORPUSCULAR HEMOGLOBIN 24.2 pg (27.0-33.4); MEAN CORPUSCULAR HGB CONC 32.9 g/dL (32.0-36.0); RED BLOOD COUNT 3.63 10^6/uL (4.35-5.55); RED CELL DISTRIBUTION WIDTH 22.4 % (11.5-14.0); WHITE BLOOD COUNT 9.9 10^3/uL (4.0-10.5)
[2016-11-10 05:27] LABS: MEAN CORPUSCULAR VOLUME 74 fl (80-97)
[2016-11-10 05:39] LABS: BASOPHILS % (MANUAL) 0 % (0-2); EOSINOPHILS % (MANUAL) 0 % (0-6); LYMPHOCYTES % (MANUAL) 15 % (13-45); TOTAL CELLS COUNTED 100
[2016-11-10 05:41] LABS: ACANTHOCYTES SLIGHT; ANISOCYTOSIS 3+; BURR CELLS SLIGHT; HYPOCHROMASIA 1+; MICROCYTOSIS 1+; OVALOCYTES 1+; POIKILOCYTOSIS 2+; POLYCHROMASIA SLIGHT
[2016-11-10] MEDS: GABAPENTIN 300 MG CAPSULE PO SCH ×3 (05:42→21:52)
[2016-11-10] MEDS: METRONIDAZOLE 500 MG TABLET PO SCH ×3 (05:43→21:52)
[2016-11-10] MEDS: LANSOPRAZOLE 30 MG TAB.RAP.DR PO SCH ×2 (08:01→17:42)
[2016-11-10] MEDS: ESCITALOPRAM OXALATE 10 MG TABLET PO SCH (08:01)
[2016-11-10] MEDS: TAMSULOSIN HCL 0.4 MG CAP.SR.24H PO SCH (10:16)
[2016-11-10] MEDS: CYCLOBENZAPRINE HCL 10 MG TABLET PO PRN ×2 (12:51→21:52)
--- NOTE | 2016-11-10 15:47 | PDOC PROGRESS REPORT ---
Subjective Progress Note for:: 11/10/16 Subjective:: Patient was transfused with packed red blood cells yesterday, posttransfusion hemoglobin is 8.5. On admission the hemoglobin was 5, he has microcytic anemia most likely due to inadequate iron absorption from the GI tract secondary to gastric bypass. He was supposed to receive 2 more units of packed red blood yesterday but there was no IV access, PICC line is not done over the weekend in this hospital hopefully we can get one tomorrow. He probably would not need any more packed red blood cells , be transfused with iron infusion, he also have C. difficile colitis on p.o. Flagyl the hypokalemia is corrected Physical Exam Vital Signs: Temp Pulse Resp BP Pulse Ox 98.0 F 87 18 113/69 100 11/10/16 12:17 11/10/16 14:00 11/10/16 12:17 11/10/16 12:17 11/10/16 12:17 Intake & Output 11/09/16 11/10/16 11/11/16 06:59 06:59 06:59 Intake Total 1240 1460 1125 Output Total 1700 2150 750 Balance -460 -690 375 Weight 92.7 kg 92.7 kg General appearance: PRESENT: no acute distress Eye exam: PRESENT: PERRLA Respiratory exam: PRESENT: clear to auscultation jorge Cardiovascular exam: PRESENT: +S1, +S2 GI/Abdominal exam: PRESENT: soft Neurological exam: PRESENT: altered Results Laboratory Results: 11/10/16 04:09 11/09/16 03:11 11/10/16 04:09 WBC 9.9 RBC 3.63 L Hgb 8.8 L Hct 26.8 L MCV 74 L D MCH 24.2 L MCHC 32.9 RDW 22.4 H Plt Count 356 Seg Neutrophils % Not Reportable Lymphocytes % Not Reportable Monocytes % Not Reportable Eosinophils % Not Reportable Basophils % Not Reportable Absolute Neutrophils Not Reportable Absolute Lymphocytes Not Reportable Absolute Monocytes Not Reportable Absolute Eosinophils Not Reportable Absolute Basophils Not Reportable 11/08/16 21:15 Nasophary (Mrsa Only) MRSA Surveillance Culture - Final MRSA RECOVERED 11/08/16 11/09/16 11/09/16 21:40 03:11 09:18 CK-MB (CK-2) 0.42 0.24 < 0.22 Troponin I < 0.012 < 0.012 < 0.012 Impressions: Abdomen/Pelvis CT 11/08/16 00:00 IMPRESSION: NO SIGNIFICANT OR ACUTE FINDING IN THE ABDOMEN OR PELVIS ON CT SCAN WITH IV CONTRAST. Chest X-Ray 11/08/16 12:18 IMPRESSION: NO SIGNIFICANT RADIOGRAPHIC FINDING IN THE CHEST. Ankle X-Ray 11/08/16 12:19 IMPRESSION: Acute comminuted nondisplaced spiral fracture distal fibula with widening of the medial ankle mortise. Associated lateral soft tissue swelling and tibiotalar joint effusion Hand X-Ray 11/08/16 12:19 IMPRESSION: NEGATIVE STUDY OF THE LEFT HAND. NO RADIOGRAPHIC EVIDENCE OF ACUTE INJURY. Assessment & Plan - Diagnosis (1) Microcytic anemia Is this a current diagnosis for this admission?: Yes Plan: Transfused with Venofer (2) Hypokalemia Is this a current diagnosis for this admission?: Yes (3) Clostridium difficile enterocolitis Is this a current diagnosis for this admission?: Yes (4) Nondisplaced comminuted fracture of shaft of left fibula Qualifiers: Encounter type: initial encounter Fracture type: closed Qualified Code(s) : S82.455A - Nondisplaced comminuted fracture of shaft of left fibula, initial encounter for closed fracture Is this a current diagnosis for this admission?: Yes (5) Syncope Qualifiers: Syncope type: unspecified Qualified Code(s): R55 - Syncope and collapse Is this a current diagnosis for this admission?: Yes
[2016-11-10] MEDS ORDERED: IRON SUCROSE COMPLEX INJ/PF 100 MG/5 ML SDV IV ONE (17:00)
[2016-11-10] MEDS: ACETAMINOPHEN 325 MG TABLET PO PRN (19:59)
[2016-11-10] MEDS: OLANZAPINE 5 MG TABLET PO SCH (21:52)
[2016-11-10] MEDS: TRAZODONE HCL 50 MG TABLET PO SCH (21:52)
[2016-11-10] MEDS: QUETIAPINE FUMARATE 100 MG TABLET PO SCH (21:52)
[2016-11-11 05:08] LABS: HEMATOCRIT 26.8 % (37.9-51.0); HEMOGLOBIN 8.6 g/dL (13.5-17.0); MEAN CORPUSCULAR HEMOGLOBIN 23.1 pg (27.0-33.4); MEAN CORPUSCULAR VOLUME 72 fl (80-97); RED BLOOD COUNT 3.71 10^6/uL (4.35-5.55); RED CELL DISTRIBUTION WIDTH 22.4 % (11.5-14.0); WHITE BLOOD COUNT 7.3 10^3/uL (4.0-10.5)
[2016-11-11] MEDS: ROPINIROLE HCL 0.25 MG TABLET PO SCH ×3 (05:44→17:47)
[2016-11-11] MEDS: METRONIDAZOLE 500 MG TABLET PO SCH ×3 (05:44→21:36)
[2016-11-11] MEDS: PROMETHAZINE HCL 25 MG TABLET PO SCH ×3 (05:44→17:47)
[2016-11-11] MEDS: GABAPENTIN 300 MG CAPSULE PO SCH ×3 (05:44→21:36)
[2016-11-11 05:58] LABS: BASOPHILS % (MANUAL) 0 % (0-2); EOSINOPHILS % (MANUAL) 2 % (0-6); LYMPHOCYTES % (MANUAL) 25 % (13-45); TOTAL CELLS COUNTED 100
[2016-11-11 06:04] LABS: ACANTHOCYTES SLIGHT; ANISOCYTOSIS 3+; HYPOCHROMASIA 2+; MICROCYTOSIS 1+; OVALOCYTES 1+; POIKILOCYTOSIS 1+; TEAR DROP CELLS SLIGHT
[2016-11-11] MEDS: ESCITALOPRAM OXALATE 10 MG TABLET PO SCH (08:10)
[2016-11-11] MEDS: LANSOPRAZOLE 30 MG TAB.RAP.DR PO SCH ×2 (08:10→15:47)
--- NOTE | 2016-11-11 09:52 | RADIOLOGY REPORT (SQ) ---
EXAM DESCRIPTION: PICC INSERTION; FLUORO/CV PLACEMENT; U/S GUIDE FOR VASCULAR ACCESS COMPLETED DATE/TIME: 11/11/2016 9:27 am REASON FOR STUDY: PICC LINE FOR TRANSFUSION; TRANSFUSION COMPARISON: Chest film 11/08/2016 FLUOROSCOPY TIME: 8 seconds One chest and one ultrasound images saved to PACS. TECHNIQUE: Fluoroscopic and ultrasound guided PICC placement. LIMITATIONS: None. PROCEDURE: After written consent and assessment were obtained, the patient was brought into the fluo roscopy room and place supine on the table. Ultrasound was used on the patient's left arm for PICC a ccess. The left arm was prepped and draped in a sterile fashion along with the ultrasound probe. The entry site was anesthetized with 1% lidocaine. A 21 gauge 7 cm needle was advanced through the skin a nd into the basilic vein under live ultrasound guidance. An ultrasound image was saved to PACS confi rming access site. A .018 guide wire was then inserted through the needle and into the venous system . The needle was the removed and an 11 blade scalpel was used to make a 1cm skin incision. A 5 fr pe el-away sheath was advanced over the wire and into the venous system. A measurement was then made usi ng the existing wire and live fluoroscopic guidance. The wire was then removed and the trimmed. The P ICC was advanced through the peel-away sheath and into the venous system. The peel-away sheath was re moved and the catheter was adhered to the patients arm with a stat lock. The catheter was then aspira michael and flushed and a sterile bandage was placed over the access site. A fluoroscopic spot image was saved to PACS confirming the catheter tip within the superior vena cava. IMPRESSION: SUCCESSFUL PLACEMENT OF A 5 FR DUAL LUMEN 43 CM PICC IN THE LEFT BASILIC VEIN. COMMENT: Patient medication list reviewed: Yes- Quality ID# [id number]:Eligible professional attests to doc umenting in the medical record they obtained, updated, or reviewed the patient's current medications. . Quality ID 145: Final reports for procedures using fluoroscopy that document radiation exposure yoav sarthak, or exposure time and number of fluorographic images (if radiation exposure indices are not avail able) Quality ID #76: The patient was prepped and draped using maximum sterile barrier technique including cap, mask, sterile gown, sterile gloves, a large sterile sheet, hand hygiene, and 2% Chlorhexidine fo r cutaneous antisepsis. When ultrasound is used, sterile ultrasound techniques are followed requiring sterile gel and sterile probes. TECHNICAL DOCUMENTATION: JOB ID: [id number] [facility]- All Rights Reserved
[2016-11-11] MEDS: TAMSULOSIN HCL 0.4 MG CAP.SR.24H PO SCH (10:20)
[2016-11-11] MEDS: CYCLOBENZAPRINE HCL 10 MG TABLET PO PRN ×2 (12:21→20:54)
[2016-11-11] MEDS ORDERED: IRON SUCROSE COMPLEX INJ/PF 100 MG/5 ML SDV IV ONE (14:00)
[2016-11-11 17:11] LABS: HGB HCT DIFFERENCE -1.2; MEAN CORPUSCULAR HGB CONC 31.8 g/dL (32.0-36.0); MEAN CORPUSCULAR VOLUME 72 fl (80-97); RED BLOOD COUNT 3.32 10^6/uL (4.35-5.55); RED CELL DISTRIBUTION WIDTH 22.4 % (11.5-14.0); WHITE BLOOD COUNT 6.5 10^3/uL (4.0-10.5)
[2016-11-11 17:41] LABS: BASOPHILS % (MANUAL) 0 % (0-2); EOSINOPHILS % (MANUAL) 1 % (0-6); LYMPHOCYTES % (MANUAL) 24 % (13-45); TOTAL CELLS COUNTED 100
[2016-11-11 17:44] LABS: POLYCHROMASIA 1+
[2016-11-11 17:45] LABS: ANISOCYTOSIS 3+; HYPOCHROMASIA 2+; MICROCYTOSIS 1+; OVALOCYTES 1+; PLATELET CLUMPS PRESENT; POIKILOCYTOSIS 1+; SCHISTOCYTES SLIGHT
[2016-11-11 17:49] LABS: HEMOGLOBIN 7.6 g/dL (13.5-17.0)
--- NOTE | 2016-11-11 20:30 | PDOC PROGRESS REPORT ---
Subjective Progress Note for:: 11/11/16 Subjective:: Patient had a PICC line inserted today, the repeat hemoglobin is 7.6 he will be transfused with 2 units of packed red blood cells Physical Exam Vital Signs: Temp Pulse Resp BP Pulse Ox 98.6 F 81 18 111/72 100 11/11/16 11:32 11/11/16 14:00 11/11/16 11:32 11/11/16 11:32 11/11/16 11:32 Intake & Output 11/10/16 11/11/16 11/12/16 06:59 06:59 06:59 Intake Total 1460 1845 450 Output Total 2150 1350 1750 Balance -690 495 -1300 Weight 92.7 kg 94.6 kg General appearance: PRESENT: no acute distress Eye exam: PRESENT: PERRLA Respiratory exam: PRESENT: clear to auscultation jorge Cardiovascular exam: PRESENT: +S1, +S2 Neurological exam: PRESENT: alert, CN II-XII grossly intact Results Laboratory Results: 11/11/16 17:00 11/09/16 03:11 11/11/16 11/11/16 04:14 17:00 WBC 7.3 6.5 RBC 3.71 L 3.32 L Hgb 8.6 L 7.6 L Hct 26.8 L 24.0 L MCV 72 L 72 L MCH 23.1 L 23.0 L MCHC 32.0 31.8 L RDW 22.4 H 22.4 H Plt Count 351 405 Seg Neutrophils % Not Reportable Not Reportable Lymphocytes % Not Reportable Not Reportable Monocytes % Not Reportable Not Reportable Eosinophils % Not Reportable Not Reportable Basophils % Not Reportable Not Reportable Absolute Neutrophils Not Reportable Not Reportable Absolute Lymphocytes Not Reportable Not Reportable Absolute Monocytes Not Reportable Not Reportable Absolute Eosinophils Not Reportable Not Reportable Absolute Basophils Not Reportable Not Reportable 11/08/16 11/09/16 11/09/16 21:40 03:11 09:18 CK-MB (CK-2) 0.42 0.24 < 0.22 Troponin I < 0.012 < 0.012 < 0.012 Impressions: Abdomen/Pelvis CT 11/08/16 00:00 IMPRESSION: NO SIGNIFICANT OR ACUTE FINDING IN THE ABDOMEN OR PELVIS ON CT SCAN WITH IV CONTRAST. Chest X-Ray 09/08/17 12:18 IMPRESSION: NO SIGNIFICANT RADIOGRAPHIC FINDING IN THE CHEST. Ankle X-Ray 11/08/16 12:19 IMPRESSION: Acute comminuted nondisplaced spiral fracture distal fibula with widening of the medial ankle mortise. Associated lateral soft tissue swelling and tibiotalar joint effusion Hand X-Ray 11/08/16 12:19 IMPRESSION: NEGATIVE STUDY OF THE LEFT HAND. NO RADIOGRAPHIC EVIDENCE OF ACUTE INJURY. Guidance Fluoroscopy 11/11/16 00:00 IMPRESSION: SUCCESSFUL PLACEMENT OF A 5 FR DUAL LUMEN 43 CM PICC IN THE LEFT BASILIC VEIN. Interventional Vascular Procedure 11/11/16 00:00 IMPRESSION: SUCCESSFUL PLACEMENT OF A 5 FR DUAL LUMEN 43 CM PICC IN THE LEFT BASILIC VEIN. PICC Line Insertion 11/11/16 08:00 IMPRESSION: SUCCESSFUL PLACEMENT OF A 5 FR DUAL LUMEN 43 CM PICC IN THE LEFT BASILIC VEIN. Assessment & Plan - Diagnosis (1) Microcytic anemia Is this a current diagnosis for this admission?: Yes (2) Hypokalemia Is this a current diagnosis for this admission?: Yes (3) Clostridium difficile enterocolitis Is this a current diagnosis for this admission?: Yes (4) Nondisplaced comminuted fracture of shaft of left fibula Qualifiers: Encounter type: initial encounter Fracture type: closed Qualified Code(s) : S82.455A - Nondisplaced comminuted fracture of shaft of left fibula, initial encounter for closed fracture Is this a current diagnosis for this admission?: Yes (5) Syncope Qualifiers: Syncope type: unspecified Qualified Code(s): R55 - Syncope and collapse Is this a current diagnosis for this admission?: Yes
[2016-11-11] MEDS: QUETIAPINE FUMARATE 100 MG TABLET PO SCH (21:36)
[2016-11-11] MEDS: OLANZAPINE 5 MG TABLET PO SCH (21:36)
[2016-11-11] MEDS: TRAZODONE HCL 50 MG TABLET PO SCH (21:37)
[2016-11-12] MEDS: NORMAL SALINE 10 ML SDV (SCHEDULED) IV SCH ×3 (00:32→21:15)
[2016-11-12] MEDS: ROPINIROLE HCL 0.25 MG TABLET PO SCH ×4 (00:32→18:26)
[2016-11-12] MEDS: PROMETHAZINE HCL 25 MG TABLET PO SCH ×4 (00:33→18:26)
[2016-11-12] MEDS: GABAPENTIN 300 MG CAPSULE PO SCH ×3 (05:46→21:15)
[2016-11-12] MEDS: METRONIDAZOLE 500 MG TABLET PO SCH ×3 (05:46→21:15)
[2016-11-12] MEDS: LANSOPRAZOLE 30 MG TAB.RAP.DR PO SCH ×2 (07:53→16:34)
[2016-11-12] MEDS: ESCITALOPRAM OXALATE 10 MG TABLET PO SCH (07:53)
[2016-11-12] MEDS: CYCLOBENZAPRINE HCL 10 MG TABLET PO PRN ×2 (07:53→16:33)
[2016-11-12 08:07] LABS: HEMATOCRIT 29.4 % (37.9-51.0); HGB HCT DIFFERENCE -0.3; MEAN CORPUSCULAR HGB CONC 32.9 g/dL (32.0-36.0); MEAN CORPUSCULAR VOLUME 73 fl (80-97); RED BLOOD COUNT 4.05 10^6/uL (4.35-5.55); RED CELL DISTRIBUTION WIDTH 22.3 % (11.5-14.0)
[2016-11-12 08:16] LABS: HEMOGLOBIN 9.7 g/dL (13.5-17.0)
[2016-11-12 08:28] LABS: BASOPHILS % (MANUAL) 0 % (0-2); EOSINOPHILS % (MANUAL) 1 % (0-6); LYMPHOCYTES % (MANUAL) 21 % (13-45); TOTAL CELLS COUNTED 100
[2016-11-12 08:31] LABS: ANISOCYTOSIS 3+; HYPOCHROMASIA 1+; MICROCYTOSIS 1+; OVALOCYTES 1+; POIKILOCYTOSIS 1+; POLYCHROMASIA SLIGHT; TARGET CELLS SLIGHT; TEAR DROP CELLS SLIGHT
[2016-11-12] MEDS: TAMSULOSIN HCL 0.4 MG CAP.SR.24H PO SCH (10:17)
--- NOTE | 2016-11-12 16:49 | PDOC CONSULTATION ---
History of Present Illness Admission Date/PCP: 11/08/16 21:02 MERYL ORNELAS MD History of Present Illness: YESSY ALMODOVAR is a 51 year old male, he came to the emergency room for evaluation of loss of consciousness, fall, he stated that he has had several falls the last few days he said that he found the same on the floor and does not remember how he got to the floor. He states he initially injured his ankle a few days prior to presenting to the emergency room. He states the pain was worse his ambulation but he had been able to weight-bear as tolerated. Patient denies numbness or tingling. Does note swelling. Pain improved with rest and elevation. Current pain 05/10. Past Medical History Cardiac Medical History: Reports: Hypertension Denies: Heart Murmur Pulmonary Medical History: Neurological Medical History: Denies: Seizures Endocrine Medical History: Reports: Diabetes Mellitus Type 2 - Since gastric bypass has been able to stop all medications GI Medical History: Reports: Gastroesophageal Reflux Disease Musculoskeltal Medical History: Reports: Arthritis Psychiatric Medical History: Reports: Bipolar Disorder, Depression Hematology: Past Surgical History Past Surgical History: Reports: Appendectomy - 1975, Gastric Bypass Surgery - , Orthopedic Surgery - Right below-knee amputation, Tonsillectomy - 1978 Social History Smoking Status: Never Smoker Frequency of Alcohol Use: None Hx Recreational Drug Use: No Drugs: None Hx Prescription Drug Abuse: No - Advance Directive Resuscitation Status: Full Code Family History Family History: Reviewed & Not Pertinent, CAD, Hypertension, Other - ulcers father and sister Parental Family History Reviewed: No Children Family History Reviewed: No Sibling(s) Family History Reviewed.: No Medication/Allergy Home Medications: Escitalopram Oxalate [Lexapro] 40 mg PO QAM 06/26/16 Gabapentin [Neurontin 300 mg Capsule] 300 mg PO Q8 06/26/16 Olanzapine [Zyprexa] 40 mg PO QHS 06/26/16 Quetiapine Fumarate [Seroquel] 600 mg PO QHS 06/26/16 Ropinirole HCl [Requip 0.25 mg Tablet] 0.25 mg PO Q6 06/26/16 Trazodone HCl [Desyrel] 200 mg PO QHS 07/12/16 Cyclobenzaprine HCl [Flexeril 10 mg Tablet] 10 mg PO Q8HP PRN 11/08/16 Pantoprazole Sodium [Protonix] 2 tab PO Q12 11/08/16 Promethazine HCl 25 mg PO Q6 11/08/16 Tamsulosin HCl [Flomax 0.4 mg Cap.sr] 0.8 mg PO DAILY 11/08/16 Allergies/Adverse Reactions: aripiprazole [From Abilify] Adverse Reaction (Severe, Verified 07/20/16 08:03) "uncontrollable muscle tremors" Review of Systems All systems: as per PMH Constitutional: PRESENT: fatigue Ears: ABSENT: hearing changes Gastrointestinal: PRESENT: other Musculoskeletal: PRESENT: joint swelling Neurological: PRESENT: abnormal gait, frequent falls, vertigo Physical Exam Vital Signs: Temp Pulse Resp BP Pulse Ox 98.2 F 75 16 101/67 97 11/12/16 11:45 11/12/16 11:45 11/12/16 11:45 11/12/16 11:45 11/12/16 11:45 Intake & Output 11/11/16 11/12/16 11/13/16 06:59 06:59 06:59 Intake Total 1845 1690 1080 Output Total 1350 2425 700 Balance 495 -735 380 Weight 94.6 kg 94.6 kg General appearance: PRESENT: no acute distress, well-developed, well-nourished Head exam: PRESENT: atraumatic, normocephalic Eye exam: PRESENT: conjunctiva pink, EOMI, PERRLA. ABSENT: scleral icterus Ear exam: PRESENT: normal external ear exam Mouth exam: PRESENT: moist, tongue midline Teeth exam: PRESENT: poor dentation Neck exam: PRESENT: full ROM. ABSENT: carotid bruit, JVD, lymphadenopathy, thyromegaly Respiratory exam: PRESENT: unlabored Cardiovascular exam: PRESENT: RRR. ABSENT: diastolic murmur, rubs, systolic murmur Vascular exam: PRESENT: normal capillary refill GI/Abdominal exam: PRESENT: normal bowel sounds, soft, other - Nontender to palpation. ABSENT: distended, guarding, mass, organolmegaly, rebound, tenderness Rectal exam: PRESENT: deferred Extremities exam: PRESENT: right BKA Musculoskeletal exam: PRESENT: other - Left lower extremity: Notable swelling and ecchymosis laterally. No tenderness medially. Negative squeeze test. Negative external rotation test. Tenderness to palpation of the distal fibula. Cap refill less than 2 seconds. Dorsalis pedis pulse 2+. Intact plantar flexion/dorsiflexion. Neurological exam: PRESENT: alert, awake, oriented to person, oriented to place , oriented to time, oriented to situation, CN II-XII grossly intact. ABSENT: motor sensory deficit Psychiatric exam: PRESENT: appropriate affect, normal mood. ABSENT: homicidal ideation, suicidal ideation Skin exam: PRESENT: dry, intact, warm. ABSENT: cyanosis, rash Results Laboratory Results: 11/12/16 07:40 11/09/16 03:11 11/11/16 11/11/16 11/12/16 17:00 19:30 07:40 WBC 6.5 8.0 RBC 3.32 L 4.05 L Hgb 7.6 L 9.7 L D Hct 24.0 L 29.4 L MCV 72 L 73 L MCH 23.0 L 24.0 L MCHC 31.8 L 32.9 RDW 22.4 H 22.3 H Plt Count 405 408 Seg Neutrophils % Not Reportable Not Reportable Lymphocytes % Not Reportable Not Reportable Monocytes % Not Reportable Not Reportable Eosinophils % Not Reportable Not Reportable Basophils % Not Reportable Not Reportable Absolute Neutrophils Not Reportable Not Reportable Absolute Lymphocytes Not Reportable Not Reportable Absolute Monocytes Not Reportable Not Reportable Absolute Eosinophils Not Reportable Not Reportable Absolute Basophils Not Reportable Not Reportable Blood Type O POSITIVE Antibody Screen NEGATIVE 11/08/16 11/09/16 11/09/16 21:40 03:11 09:18 CK-MB (CK-2) 0.42 0.24 < 0.22 Troponin I < 0.012 < 0.012 < 0.012 Impressions: Abdomen/Pelvis CT 11/08/16 00:00 IMPRESSION: NO SIGNIFICANT OR ACUTE FINDING IN THE ABDOMEN OR PELVIS ON CT SCAN WITH IV CONTRAST. Chest X-Ray 11/08/16 12:18 IMPRESSION: NO SIGNIFICANT RADIOGRAPHIC FINDING IN THE CHEST. Ankle X-Ray 11/08/16 12:19 IMPRESSION: Acute comminuted nondisplaced spiral fracture distal fibula with widening of the medial ankle mortise. Associated lateral soft tissue swelling and tibiotalar joint effusion Hand X-Ray 11/08/16 12:19 IMPRESSION: NEGATIVE STUDY OF THE LEFT HAND. NO RADIOGRAPHIC EVIDENCE OF ACUTE INJURY. Guidance Fluoroscopy 11/11/16 00:00 IMPRESSION: SUCCESSFUL PLACEMENT OF A 5 FR DUAL LUMEN 43 CM PICC IN THE LEFT BASILIC VEIN. Interventional Vascular Procedure 11/11/16 00:00 IMPRESSION: SUCCESSFUL PLACEMENT OF A 5 FR DUAL LUMEN 43 CM PICC IN THE LEFT BASILIC VEIN. PICC Line Insertion 11/11/16 08:00 IMPRESSION: SUCCESSFUL PLACEMENT OF A 5 FR DUAL LUMEN 43 CM PICC IN THE LEFT BASILIC VEIN. Status: Image reviewed by me - I have reviewed patient's radiographs which demonstrate comminuted lateral malleolus fracture. There is approximately 5.4 mm of medial space widening with mild tibia-fibula clear space widening. No evidence of joint subluxation on lateral view. Assessment & Plan - Diagnosis (1) Fracture, fibula Qualifiers: Encounter type: initial encounter Fibula location: distal Fracture type: closed Laterality: left Is this a current diagnosis for this admission?: Yes Plan: I have reviewed patient's radiographs which demonstrate comminuted distal fibula fracture. There is mild medial space widening the patient has been weightbearing prior to admission. At this point I have recommended continue immobilization in a pneumatic walking boot. He will follow-up in the office in 2 weeks at which point we will recheck radiographs and discuss possible treatment. If it maintains its current alignment I feel given his multiple comorbidities such as diabetes he is a poor surgical candidate at high risk for infection and likely the mild medial space widening will not cause long-term sequelae. Patient will begin physical therapy and maintain nonweightbearing.
[2016-11-12] MEDS: ACETAMINOPHEN 325 MG TABLET PO PRN (18:53)
--- NOTE | 2016-11-12 20:20 | PDOC PROGRESS REPORT ---
Subjective Progress Note for:: 11/12/16 Subjective:: Patient was seen by orthopedic regarding the fracture of the fibula bone, presently on boot. Status post blood transfusion he may need to go to rehabilitation Physical Exam Vital Signs: Temp Pulse Resp BP Pulse Ox 98.6 F 101 H 18 98/67 L 92 11/12/16 15:47 11/12/16 15:47 11/12/16 15:47 11/12/16 15:47 11/12/16 15:47 Intake & Output 11/11/16 11/12/16 11/13/16 06:59 06:59 06:59 Intake Total 1845 1690 1080 Output Total 1350 2425 700 Balance 495 -735 380 Weight 94.6 kg 94.6 kg General appearance: PRESENT: no acute distress Eye exam: PRESENT: PERRLA Respiratory exam: PRESENT: clear to auscultation jorge Cardiovascular exam: PRESENT: +S1, +S2 GI/Abdominal exam: PRESENT: soft Results Laboratory Results: 11/12/16 07:40 11/09/16 03:11 11/11/16 11/12/16 19:30 07:40 WBC 8.0 RBC 4.05 L Hgb 9.7 L D Hct 29.4 L MCV 73 L MCH 24.0 L MCHC 32.9 RDW 22.3 H Plt Count 408 Seg Neutrophils % Not Reportable Lymphocytes % Not Reportable Monocytes % Not Reportable Eosinophils % Not Reportable Basophils % Not Reportable Absolute Neutrophils Not Reportable Absolute Lymphocytes Not Reportable Absolute Monocytes Not Reportable Absolute Eosinophils Not Reportable Absolute Basophils Not Reportable Blood Type O POSITIVE Antibody Screen NEGATIVE 11/08/16 11/09/16 11/09/16 21:40 03:11 09:18 CK-MB (CK-2) 0.42 0.24 < 0.22 Troponin I < 0.012 < 0.012 < 0.012 Impressions: Abdomen/Pelvis CT 11/08/16 00:00 IMPRESSION: NO SIGNIFICANT OR ACUTE FINDING IN THE ABDOMEN OR PELVIS ON CT SCAN WITH IV CONTRAST. Chest X-Ray 11/08/16 12:18 IMPRESSION: NO SIGNIFICANT RADIOGRAPHIC FINDING IN THE CHEST. Ankle X-Ray 11/08/16 12:19 IMPRESSION: Acute comminuted nondisplaced spiral fracture distal fibula with widening of the medial ankle mortise. Associated lateral soft tissue swelling and tibiotalar joint effusion Hand X-Ray 11/08/16 12:19 IMPRESSION: NEGATIVE STUDY OF THE LEFT HAND. NO RADIOGRAPHIC EVIDENCE OF ACUTE INJURY. Guidance Fluoroscopy 11/11/16 00:00 IMPRESSION: SUCCESSFUL PLACEMENT OF A 5 FR DUAL LUMEN 43 CM PICC IN THE LEFT BASILIC VEIN. Interventional Vascular Procedure 11/11/16 00:00 IMPRESSION: SUCCESSFUL PLACEMENT OF A 5 FR DUAL LUMEN 43 CM PICC IN THE LEFT BASILIC VEIN. PICC Line Insertion 11/11/16 08:00 IMPRESSION: SUCCESSFUL PLACEMENT OF A 5 FR DUAL LUMEN 43 CM PICC IN THE LEFT BASILIC VEIN. Assessment & Plan - Diagnosis (1) Microcytic anemia Is this a current diagnosis for this admission?: Yes (2) Hypokalemia Is this a current diagnosis for this admission?: Yes (3) Clostridium difficile enterocolitis Is this a current diagnosis for this admission?: Yes (4) Nondisplaced comminuted fracture of shaft of left fibula Qualifiers: Encounter type: initial encounter Fracture type: closed Qualified Code(s) : S82.455A - Nondisplaced comminuted fracture of shaft of left fibula, initial encounter for closed fracture Is this a current diagnosis for this admission?: Yes (5) Syncope Qualifiers: Syncope type: unspecified Qualified Code(s): R55 - Syncope and collapse Is this a current diagnosis for this admission?: Yes
[2016-11-12] MEDS: TRAZODONE HCL 50 MG TABLET PO SCH (21:15)
[2016-11-12] MEDS: QUETIAPINE FUMARATE 100 MG TABLET PO SCH (21:15)
[2016-11-12] MEDS: OLANZAPINE 5 MG TABLET PO SCH (21:15)
[2016-11-13] MEDS: ROPINIROLE HCL 0.25 MG TABLET PO SCH ×4 (00:28→18:56)
[2016-11-13] MEDS: PROMETHAZINE HCL 25 MG TABLET PO SCH ×4 (00:29→18:57)
[2016-11-13] MEDS: METRONIDAZOLE 500 MG TABLET PO SCH ×3 (05:34→21:09)
[2016-11-13] MEDS: GABAPENTIN 300 MG CAPSULE PO SCH ×3 (05:34→21:09)
[2016-11-13] MEDS: CYCLOBENZAPRINE HCL 10 MG TABLET PO PRN (07:52)
[2016-11-13] MEDS: ESCITALOPRAM OXALATE 10 MG TABLET PO SCH (07:52)
[2016-11-13] MEDS: LANSOPRAZOLE 30 MG TAB.RAP.DR PO SCH ×2 (07:53→15:39)
[2016-11-13] MEDS: TAMSULOSIN HCL 0.4 MG CAP.SR.24H PO SCH (11:17)
[2016-11-13] MEDS: NORMAL SALINE 10 ML SDV (SCHEDULED) IV SCH ×2 (11:18→21:12)
[2016-11-13 16:35] LABS: HEMATOCRIT 29.9 % (37.9-51.0); HEMOGLOBIN 9.9 g/dL (13.5-17.0); HGB HCT DIFFERENCE -0.2; MEAN CORPUSCULAR HEMOGLOBIN 23.8 pg (27.0-33.4); MEAN CORPUSCULAR HGB CONC 33.2 g/dL (32.0-36.0); MEAN CORPUSCULAR VOLUME 72 fl (80-97); RED BLOOD COUNT 4.17 10^6/uL (4.35-5.55); RED CELL DISTRIBUTION WIDTH 22.1 % (11.5-14.0)
[2016-11-13] MEDS: TRAMADOL HCL 50 MG TABLET PO PRN (16:44)
[2016-11-13 16:54] LABS: ALANINE AMINOTRANSFERASE 20 U/L (21-72); ALBUMIN 2.6 g/dL (3.5-5.0); ALKALINE PHOSPHATASE 76 U/L (38-126); ANION GAP 9 (5-19); ASPARTATE AMINO TRANSFERASE 12 U/L (17-59); BILIRUBIN,DIRECT 0.2 mg/dL (0.0-0.4); BILIRUBIN,TOTAL 0.3 mg/dL (0.2-1.3); BLOOD UREA NITROGEN 7 mg/dL (7-20); CALCIUM 7.8 mg/dL (8.4-10.2); CARBON DIOXIDE 24 mmol/L (22-30); CHLORIDE 107 mmol/L (98-107); CREATININE RESULT 0.64 mg/dL (0.52-1.25); GLUCOSE 96 mg/dL (75-110); POTASSIUM 4.3 mmol/L (3.6-5.0); SODIUM 140.3 mmol/L (137-145); TOTAL PROTEIN 5.1 g/dL (6.3-8.2)
[2016-11-13 17:22] LABS: ANISOCYTOSIS 2+; BAND NEUTROPHILS % (MANUAL) 3 % (3-5); BASOPHILS % (MANUAL) 1 % (0-2); EOSINOPHILS % (MANUAL) 2 % (0-6); HYPOCHROMASIA 1+; LYMPHOCYTES % (MANUAL) 21 % (13-45); MICROCYTOSIS 2+; OVALOCYTES 2+; PLATELET CLUMPS PRESENT; POIKILOCYTOSIS 2+; POLYCHROMASIA SLIGHT; TOTAL CELLS COUNTED 100; TOXIC GRANULATION SLIGHT
--- NOTE | 2016-11-13 19:44 | PDOC PROGRESS REPORT ---
Subjective Progress Note for:: 11/13/16 Subjective:: Patient was seen by orthopedic regarding the fracture of the fibula bone, presently on boot. Status post blood transfusion he may need to go to rehabilitation Physical Exam Vital Signs: Temp Pulse Resp BP Pulse Ox 98.9 F 72 18 110/69 99 11/13/16 15:49 11/13/16 15:49 11/13/16 15:49 11/13/16 15:49 11/13/16 15:49 Intake & Output 11/12/16 11/13/16 11/14/16 06:59 06:59 06:59 Intake Total 1690 1700 2210 Output Total 2425 1400 1910 Balance -735 300 300 Weight 94.6 kg 94.6 kg General appearance: PRESENT: no acute distress Eye exam: PRESENT: PERRLA Respiratory exam: PRESENT: clear to auscultation jorge Cardiovascular exam: PRESENT: +S1, +S2 GI/Abdominal exam: PRESENT: soft Neurological exam: PRESENT: alert Results Laboratory Results: 11/13/16 14:05 11/13/16 14:05 11/13/16 11/13/16 14:05 14:05 WBC 8.0 RBC 4.17 L Hgb 9.9 L Hct 29.9 L MCV 72 L MCH 23.8 L MCHC 33.2 RDW 22.1 H Plt Count 410 Seg Neutrophils % Not Reportable Lymphocytes % Not Reportable Monocytes % Not Reportable Eosinophils % Not Reportable Basophils % Not Reportable Absolute Neutrophils Not Reportable Absolute Lymphocytes Not Reportable Absolute Monocytes Not Reportable Absolute Eosinophils Not Reportable Absolute Basophils Not Reportable Sodium 140.3 Potassium 4.3 Chloride 107 Carbon Dioxide 24 Anion Gap 9 BUN 7 Creatinine 0.64 Est GFR ( Amer) > 60 Est GFR (Non-Af Amer) > 60 Glucose 96 Calcium 7.8 L Total Bilirubin 0.3 AST 12 L ALT 20 L Alkaline Phosphatase 76 Total Protein 5.1 L Albumin 2.6 L 11/08/16 11/09/16 11/09/16 21:40 03:11 09:18 CK-MB (CK-2) 0.42 0.24 < 0.22 Troponin I < 0.012 < 0.012 < 0.012 Impressions: Abdomen/Pelvis CT 11/08/16 00:00 IMPRESSION: NO SIGNIFICANT OR ACUTE FINDING IN THE ABDOMEN OR PELVIS ON CT SCAN WITH IV CONTRAST. Chest X-Ray 11/08/16 12:18 IMPRESSION: NO SIGNIFICANT RADIOGRAPHIC FINDING IN THE CHEST. Ankle X-Ray 11/08/16 12:19 IMPRESSION: Acute comminuted nondisplaced spiral fracture distal fibula with widening of the medial ankle mortise. Associated lateral soft tissue swelling and tibiotalar joint effusion Hand X-Ray 11/08/16 12:19 IMPRESSION: NEGATIVE STUDY OF THE LEFT HAND. NO RADIOGRAPHIC EVIDENCE OF ACUTE INJURY. Guidance Fluoroscopy 11/11/16 00:00 IMPRESSION: SUCCESSFUL PLACEMENT OF A 5 FR DUAL LUMEN 43 CM PICC IN THE LEFT BASILIC VEIN. Interventional Vascular Procedure 11/11/16 00:00 IMPRESSION: SUCCESSFUL PLACEMENT OF A 5 FR DUAL LUMEN 43 CM PICC IN THE LEFT BASILIC VEIN. PICC Line Insertion 11/11/16 08:00 IMPRESSION: SUCCESSFUL PLACEMENT OF A 5 FR DUAL LUMEN 43 CM PICC IN THE LEFT BASILIC VEIN. Assessment & Plan - Diagnosis (1) Microcytic anemia Is this a current diagnosis for this admission?: Yes (2) Hypokalemia Is this a current diagnosis for this admission?: Yes (3) Clostridium difficile enterocolitis Is this a current diagnosis for this admission?: Yes (4) Nondisplaced comminuted fracture of shaft of left fibula Qualifiers: Encounter type: initial encounter Fracture type: closed Qualified Code(s) : S82.455A - Nondisplaced comminuted fracture of shaft of left fibula, initial encounter for closed fracture Is this a current diagnosis for this admission?: Yes (5) Syncope Qualifiers: Syncope type: unspecified Qualified Code(s): R55 - Syncope and collapse Is this a current diagnosis for this admission?: Yes
[2016-11-13] MEDS: OLANZAPINE 5 MG TABLET PO SCH (21:09)
[2016-11-13] MEDS: QUETIAPINE FUMARATE 100 MG TABLET PO SCH (21:10)
[2016-11-13] MEDS: TRAZODONE HCL 50 MG TABLET PO SCH (21:10)
[2016-11-14] MEDS: ROPINIROLE HCL 0.25 MG TABLET PO SCH ×5 (00:33→23:14)
[2016-11-14] MEDS: PROMETHAZINE HCL 25 MG TABLET PO SCH ×5 (00:33→23:14)
[2016-11-14] MEDS: TRAMADOL HCL 50 MG TABLET PO PRN ×4 (00:33→20:21)
[2016-11-14] MEDS: METRONIDAZOLE 500 MG TABLET PO SCH ×3 (05:23→21:48)
[2016-11-14] MEDS: GABAPENTIN 300 MG CAPSULE PO SCH ×3 (05:23→21:47)
[2016-11-14 06:03] LABS: HEMATOCRIT 30.5 % (37.9-51.0); HEMOGLOBIN 9.9 g/dL (13.5-17.0); HGB HCT DIFFERENCE -0.8; MEAN CORPUSCULAR HEMOGLOBIN 23.4 pg (27.0-33.4); MEAN CORPUSCULAR HGB CONC 32.6 g/dL (32.0-36.0); MEAN CORPUSCULAR VOLUME 72 fl (80-97); RED BLOOD COUNT 4.25 10^6/uL (4.35-5.55); RED CELL DISTRIBUTION WIDTH 21.8 % (11.5-14.0); WHITE BLOOD COUNT 6.8 10^3/uL (4.0-10.5)
[2016-11-14 06:11] LABS: ALANINE AMINOTRANSFERASE 20 U/L (21-72); ALKALINE PHOSPHATASE 85 U/L (38-126); ANION GAP 10 (5-19); ASPARTATE AMINO TRANSFERASE 14 U/L (17-59); BILIRUBIN,DIRECT 0.4 mg/dL (0.0-0.4); BILIRUBIN,TOTAL 0.4 mg/dL (0.2-1.3); BLOOD UREA NITROGEN 7 mg/dL (7-20); CALCIUM 9.1 mg/dL (8.4-10.2); CARBON DIOXIDE 26 mmol/L (22-30); CHLORIDE 103 mmol/L (98-107); CREATININE RESULT 0.74 mg/dL (0.52-1.25); GLUCOSE 119 mg/dL (75-110); POTASSIUM 4.4 mmol/L (3.6-5.0); SODIUM 138.8 mmol/L (137-145); TOTAL PROTEIN 5.7 g/dL (6.3-8.2)
[2016-11-14 06:23] LABS: BAND NEUTROPHILS % (MANUAL) 2 % (3-5); BASOPHILS % (MANUAL) 0 % (0-2); EOSINOPHILS % (MANUAL) 4 % (0-6); LYMPHOCYTES % (MANUAL) 30 % (13-45); TOTAL CELLS COUNTED 100
[2016-11-14 06:26] LABS: ANISOCYTOSIS 2+; HYPOCHROMASIA 1+; MICROCYTOSIS 2+; OVALOCYTES 1+; POLYCHROMASIA SLIGHT; TOXIC GRANULATION SLIGHT
[2016-11-14 06:27] LABS: BURR CELLS SLIGHT; POIKILOCYTOSIS 1+
[2016-11-14] MEDS: CYCLOBENZAPRINE HCL 10 MG TABLET PO PRN (06:38)
[2016-11-14] MEDS: ESCITALOPRAM OXALATE 10 MG TABLET PO SCH (10:09)
[2016-11-14] MEDS: LANSOPRAZOLE 30 MG TAB.RAP.DR PO SCH ×2 (10:10→22:35)
[2016-11-14] MEDS: TAMSULOSIN HCL 0.4 MG CAP.SR.24H PO SCH (10:13)
[2016-11-14] MEDS: NORMAL SALINE 10 ML SDV (SCHEDULED) IV SCH ×2 (10:13→21:43)
--- NOTE | 2016-11-14 20:27 | PDOC PROGRESS REPORT ---
Subjective Progress Note for:: 11/14/16 Subjective:: Patient was seen by the bedside the plan is for patient to go to rehabilitation in the longterm, discharge planning is working on that Physical Exam Vital Signs: Temp Pulse Resp BP Pulse Ox 98.1 F 73 18 122/80 100 11/14/16 15:27 11/14/16 15:27 11/14/16 15:27 11/14/16 15:27 11/14/16 15:27 Intake & Output 11/13/16 11/14/16 11/15/16 06:59 06:59 06:59 Intake Total 1700 3190 2009 Output Total 1400 3310 2100 Balance 300 -120 -90 Weight 94.6 kg 94.1 kg General appearance: PRESENT: no acute distress, well-developed, well-nourished Head exam: PRESENT: atraumatic, normocephalic Eye exam: PRESENT: conjunctiva pink, EOMI, PERRLA Ear exam: PRESENT: normal external ear exam Mouth exam: PRESENT: moist, tongue midline Neck exam: PRESENT: full ROM Respiratory exam: PRESENT: clear to auscultation jorge Cardiovascular exam: PRESENT: RRR, +S1, +S2 Pulses: PRESENT: normal dorsalis pedis pul, +2 pedal pulses bilateral Vascular exam: PRESENT: normal capillary refill GI/Abdominal exam: PRESENT: normal bowel sounds, soft Rectal exam: PRESENT: deferred Neurological exam: PRESENT: alert Psychiatric exam: PRESENT: appropriate affect, normal mood Skin exam: PRESENT: dry, intact, warm Results Laboratory Results: 11/14/16 05:27 11/14/16 05:27 11/14/16 11/14/16 05:27 05:27 WBC 6.8 RBC 4.25 L Hgb 9.9 L Hct 30.5 L MCV 72 L MCH 23.4 L MCHC 32.6 RDW 21.8 H Plt Count 392 Seg Neutrophils % Not Reportable Lymphocytes % Not Reportable Monocytes % Not Reportable Eosinophils % Not Reportable Basophils % Not Reportable Absolute Neutrophils Not Reportable Absolute Lymphocytes Not Reportable Absolute Monocytes Not Reportable Absolute Eosinophils Not Reportable Absolute Basophils Not Reportable Sodium 138.8 Potassium 4.4 Chloride 103 Carbon Dioxide 26 Anion Gap 10 BUN 7 Creatinine 0.74 Est GFR ( Amer) > 60 Est GFR (Non-Af Amer) > 60 Glucose 119 H Calcium 9.1 Total Bilirubin 0.4 AST 14 L ALT 20 L Alkaline Phosphatase 85 Total Protein 5.7 L Albumin 3.0 L 11/08/16 11/09/16 11/09/16 21:40 03:11 09:18 CK-MB (CK-2) 0.42 0.24 < 0.22 Troponin I < 0.012 < 0.012 < 0.012 Impressions: Abdomen/Pelvis CT 11/08/16 00:00 IMPRESSION: NO SIGNIFICANT OR ACUTE FINDING IN THE ABDOMEN OR PELVIS ON CT SCAN WITH IV CONTRAST. Chest X-Ray 11/08/16 12:18 IMPRESSION: NO SIGNIFICANT RADIOGRAPHIC FINDING IN THE CHEST. Ankle X-Ray 11/08/16 12:19 IMPRESSION: Acute comminuted nondisplaced spiral fracture distal fibula with widening of the medial ankle mortise. Associated lateral soft tissue swelling and tibiotalar joint effusion Hand X-Ray 11/08/16 12:19 IMPRESSION: NEGATIVE STUDY OF THE LEFT HAND. NO RADIOGRAPHIC EVIDENCE OF ACUTE INJURY. Guidance Fluoroscopy 11/11/16 00:00 IMPRESSION: SUCCESSFUL PLACEMENT OF A 5 FR DUAL LUMEN 43 CM PICC IN THE LEFT BASILIC VEIN. Interventional Vascular Procedure 11/11/16 00:00 IMPRESSION: SUCCESSFUL PLACEMENT OF A 5 FR DUAL LUMEN 43 CM PICC IN THE LEFT BASILIC VEIN. PICC Line Insertion 11/11/16 08:00 IMPRESSION: SUCCESSFUL PLACEMENT OF A 5 FR DUAL LUMEN 43 CM PICC IN THE LEFT BASILIC VEIN. Assessment & Plan - Diagnosis (1) Microcytic anemia Is this a current diagnosis for this admission?: Yes (2) Hypokalemia Is this a current diagnosis for this admission?: Yes (3) Clostridium difficile enterocolitis Is this a current diagnosis for this admission?: Yes (4) Nondisplaced comminuted fracture of shaft of left fibula Qualifiers: Encounter type: initial encounter Fracture type: closed Qualified Code(s) : S82.455A - Nondisplaced comminuted fracture of shaft of left fibula, initial encounter for closed fracture Is this a current diagnosis for this admission?: Yes (5) Syncope Qualifiers: Syncope type: unspecified Qualified Code(s): R55 - Syncope and collapse Is this a current diagnosis for this admission?: Yes
[2016-11-14] MEDS: HYDROMORPHONE HCL INJ/PF 2 MG/ML AMPULE IV PRN (21:43)
[2016-11-14] MEDS: OLANZAPINE 5 MG TABLET PO SCH (21:45)
[2016-11-14] MEDS: TRAZODONE HCL 50 MG TABLET PO SCH (21:46)
[2016-11-14] MEDS: QUETIAPINE FUMARATE 100 MG TABLET PO SCH (21:47)
[2016-11-15] MEDS: ROPINIROLE HCL 0.25 MG TABLET PO SCH ×3 (05:09→17:55)
[2016-11-15] MEDS: METRONIDAZOLE 500 MG TABLET PO SCH ×3 (05:10→21:11)
[2016-11-15] MEDS: HYDROMORPHONE HCL INJ/PF 2 MG/ML AMPULE IV PRN ×3 (05:10→17:45)
[2016-11-15] MEDS: GABAPENTIN 300 MG CAPSULE PO SCH ×3 (05:10→21:08)
[2016-11-15] MEDS: PROMETHAZINE HCL 25 MG TABLET PO SCH ×3 (05:10→17:44)
[2016-11-15] MEDS: LANSOPRAZOLE 30 MG TAB.RAP.DR PO SCH ×2 (08:58→16:57)
[2016-11-15] MEDS: ESCITALOPRAM OXALATE 10 MG TABLET PO SCH (08:59)
[2016-11-15] MEDS: TAMSULOSIN HCL 0.4 MG CAP.SR.24H PO SCH (11:23)
[2016-11-15] MEDS: NORMAL SALINE 10 ML SDV (SCHEDULED) IV SCH ×2 (11:25→21:11)
--- NOTE | 2016-11-15 20:56 | PDOC PROGRESS REPORT ---
Subjective Progress Note for:: 11/15/16 Subjective:: Patient was seen by the bedside the plan is for patient to go to rehabilitation in the group home, discharge planning is working on that Physical Exam Vital Signs: Temp Pulse Resp BP Pulse Ox 98.8 F 87 16 113/75 100 11/15/16 16:00 11/15/16 16:00 11/15/16 16:00 11/15/16 16:00 11/15/16 16:00 Intake & Output 11/14/16 11/15/16 11/16/16 06:59 06:59 06:59 Intake Total 3190 2490 2160 Output Total 3310 2500 2200 Balance -120 -10 -40 Weight 94.1 kg 94.1 kg General appearance: PRESENT: no acute distress Eye exam: PRESENT: PERRLA Respiratory exam: PRESENT: clear to auscultation jorge Cardiovascular exam: PRESENT: +S1, +S2 GI/Abdominal exam: PRESENT: soft Neurological exam: PRESENT: alert Results Laboratory Results: 11/14/16 05:27 11/14/16 05:27 11/08/16 11/09/16 11/09/16 21:40 03:11 09:18 CK-MB (CK-2) 0.42 0.24 < 0.22 Troponin I < 0.012 < 0.012 < 0.012 Impressions: Abdomen/Pelvis CT 11/08/16 00:00 IMPRESSION: NO SIGNIFICANT OR ACUTE FINDING IN THE ABDOMEN OR PELVIS ON CT SCAN WITH IV CONTRAST. Chest X-Ray 11/08/16 12:18 IMPRESSION: NO SIGNIFICANT RADIOGRAPHIC FINDING IN THE CHEST. Ankle X-Ray 11/08/16 12:19 IMPRESSION: Acute comminuted nondisplaced spiral fracture distal fibula with widening of the medial ankle mortise. Associated lateral soft tissue swelling and tibiotalar joint effusion Hand X-Ray 11/08/16 12:19 IMPRESSION: NEGATIVE STUDY OF THE LEFT HAND. NO RADIOGRAPHIC EVIDENCE OF ACUTE INJURY. Guidance Fluoroscopy 11/11/16 00:00 IMPRESSION: SUCCESSFUL PLACEMENT OF A 5 FR DUAL LUMEN 43 CM PICC IN THE LEFT BASILIC VEIN. Interventional Vascular Procedure 11/11/16 00:00 IMPRESSION: SUCCESSFUL PLACEMENT OF A 5 FR DUAL LUMEN 43 CM PICC IN THE LEFT BASILIC VEIN. PICC Line Insertion 11/11/16 08:00 IMPRESSION: SUCCESSFUL PLACEMENT OF A 5 FR DUAL LUMEN 43 CM PICC IN THE LEFT BASILIC VEIN. Assessment & Plan - Diagnosis (1) Microcytic anemia Is this a current diagnosis for this admission?: Yes (2) Hypokalemia Is this a current diagnosis for this admission?: Yes (3) Clostridium difficile enterocolitis Is this a current diagnosis for this admission?: Yes (4) Nondisplaced comminuted fracture of shaft of left fibula Qualifiers: Encounter type: initial encounter Fracture type: closed Qualified Code(s) : S82.455A - Nondisplaced comminuted fracture of shaft of left fibula, initial encounter for closed fracture Is this a current diagnosis for this admission?: Yes (5) Syncope Qualifiers: Syncope type: unspecified Qualified Code(s): R55 - Syncope and collapse Is this a current diagnosis for this admission?: Yes
[2016-11-15] MEDS: QUETIAPINE FUMARATE 100 MG TABLET PO SCH (21:08)
[2016-11-15] MEDS: OLANZAPINE 5 MG TABLET PO SCH (21:09)
[2016-11-15] MEDS: TRAZODONE HCL 50 MG TABLET PO SCH (21:10)
[2016-11-16] MEDS ORDERED: ROPINIROLE HCL 0.25 MG TABLET ONE ×2 (01:10→05:42)
[2016-11-16] MEDS: ROPINIROLE HCL 0.25 MG TABLET PO SCH ×4 (01:19→20:07)
[2016-11-16] MEDS: PROMETHAZINE HCL 25 MG TABLET PO SCH ×4 (01:19→20:07)
[2016-11-16] MEDS: HYDROMORPHONE HCL INJ/PF 2 MG/ML AMPULE IV PRN ×4 (01:20→21:46)
[2016-11-16] MEDS: CYCLOBENZAPRINE HCL 10 MG TABLET PO PRN (05:46)
[2016-11-16] MEDS: GABAPENTIN 300 MG CAPSULE PO SCH ×3 (05:46→21:24)
--- NOTE | 2016-11-16 07:32 | PDOC PROGRESS REPORT ---
Subjective Progress Note for:: 11/16/16 Subjective:: No new issues awaiting placement at SNF for short term rehabilitation. No chest pain or difficulty with breathing. No nausea or vomiting. No abdominal pain. No reported fever or chills. Physical Exam Vital Signs: Temp Pulse Resp BP Pulse Ox 98.1 F 77 15 112/81 99 11/16/16 04:04 11/16/16 04:04 11/16/16 04:04 11/16/16 04:04 11/16/16 04:04 Intake & Output 11/15/16 11/16/16 11/17/16 06:59 06:59 06:59 Intake Total 2490 2160 Output Total 2500 2200 Balance -10 -40 Weight 94.1 kg General appearance: PRESENT: no acute distress, well-developed, well-nourished Head exam: PRESENT: atraumatic, normocephalic Eye exam: PRESENT: conjunctiva pink. ABSENT: scleral icterus Mouth exam: PRESENT: moist Respiratory exam: PRESENT: clear to auscultation jorge Cardiovascular exam: PRESENT: RRR. ABSENT: diastolic murmur, rubs, systolic murmur Vascular exam: PRESENT: normal capillary refill. ABSENT: pallor GI/Abdominal exam: PRESENT: normal bowel sounds, soft. ABSENT: distended, guarding, mass, organolmegaly, rebound, tenderness Extremities exam: PRESENT: right BKA Neurological exam: PRESENT: alert, awake, oriented to person, oriented to place , oriented to time, oriented to situation, CN II-XII grossly intact. ABSENT: motor sensory deficit Psychiatric exam: PRESENT: appropriate affect, normal mood. ABSENT: homicidal ideation, suicidal ideation Skin exam: PRESENT: dry, intact, warm. ABSENT: cyanosis, rash Results Laboratory Results: 11/14/16 05:27 11/14/16 05:27 11/08/16 11/09/16 11/09/16 21:40 03:11 09:18 CK-MB (CK-2) 0.42 0.24 < 0.22 Troponin I < 0.012 < 0.012 < 0.012 Impressions: Abdomen/Pelvis CT 11/08/16 00:00 IMPRESSION: NO SIGNIFICANT OR ACUTE FINDING IN THE ABDOMEN OR PELVIS ON CT SCAN WITH IV CONTRAST. Chest X-Ray 11/08/16 12:18 IMPRESSION: NO SIGNIFICANT RADIOGRAPHIC FINDING IN THE CHEST. Ankle X-Ray 11/08/16 12:19 IMPRESSION: Acute comminuted nondisplaced spiral fracture distal fibula with widening of the medial ankle mortise. Associated lateral soft tissue swelling and tibiotalar joint effusion Hand X-Ray 11/08/16 12:19 IMPRESSION: NEGATIVE STUDY OF THE LEFT HAND. NO RADIOGRAPHIC EVIDENCE OF ACUTE INJURY. Guidance Fluoroscopy 11/11/16 00:00 IMPRESSION: SUCCESSFUL PLACEMENT OF A 5 FR DUAL LUMEN 43 CM PICC IN THE LEFT BASILIC VEIN. Interventional Vascular Procedure 11/11/16 00:00 IMPRESSION: SUCCESSFUL PLACEMENT OF A 5 FR DUAL LUMEN 43 CM PICC IN THE LEFT BASILIC VEIN. PICC Line Insertion 11/11/16 08:00 IMPRESSION: SUCCESSFUL PLACEMENT OF A 5 FR DUAL LUMEN 43 CM PICC IN THE LEFT BASILIC VEIN. Assessment & Plan - Diagnosis (1) Clostridium difficile enterocolitis Is this a current diagnosis for this admission?: Yes Plan: See covering attending physician orders. (2) Microcytic anemia Is this a current diagnosis for this admission?: Yes Plan: See covering attending physician orders. (3) Nondisplaced comminuted fracture of shaft of left fibula Qualifiers: Encounter type: initial encounter Fracture type: closed Qualified Code(s) : S82.455A - Nondisplaced comminuted fracture of shaft of left fibula, initial encounter for closed fracture Is this a current diagnosis for this admission?: Yes Plan: See covering attending physician orders. (4) Syncope Qualifiers: Encounter type: initial encounter Is this a current diagnosis for this admission?: Yes Plan: See covering attending physician orders. - Time Time Spent with patient: 25-34 minutes Medications reviewed and adjusted accordingly: Yes Anticipated discharge: SNF Within: Other - Inpatient Certification Based on my medical assessment, after consideration of the patient's comorbidities, presenting symptoms, or acuity I expect that the services needed warrant INPATIENT care.: Yes I certify that my determination is in accordance with my understanding of Medicare's requirements for reasonable and necessary INPATIENT services [42 CFR 412.3e].: Yes Medical Necessity: Need Close Monitoring Due to Risk of Patient Decompensation, Need for Pain Control, Risk of Complication if Not Cared For in Hospital Post Hospital Care: D/C or Transfer Summary - Plan Summary Plan Summary: See covering attending physician orders.
[2016-11-16] MEDS: ESCITALOPRAM OXALATE 10 MG TABLET PO SCH (07:51)
[2016-11-16] MEDS: LANSOPRAZOLE 30 MG TAB.RAP.DR PO SCH ×2 (07:51→15:38)
[2016-11-16] MEDS: TAMSULOSIN HCL 0.4 MG CAP.SR.24H PO SCH (10:50)
[2016-11-16] MEDS: NORMAL SALINE 10 ML SDV (SCHEDULED) IV SCH ×2 (10:50→21:21)
--- NOTE | 2016-11-16 11:25 | PDOC PROGRESS REPORT ---
Subjective Progress Note for:: 11/16/16 Subjective:: Patient comfortable Physical Exam Vital Signs: Temp Pulse Resp BP Pulse Ox 36.7 C 83 18 116/75 100 11/16/16 08:00 11/16/16 08:00 11/16/16 08:00 11/16/16 08:00 11/16/16 08:00 Intake & Output 11/15/16 11/16/16 11/17/16 06:59 06:59 06:59 Intake Total 2490 2160 Output Total 2500 2200 Balance -10 -40 Weight 94.1 kg General appearance: PRESENT: no acute distress Head exam: PRESENT: normocephalic Respiratory exam: PRESENT: unlabored Cardiovascular exam: PRESENT: RRR Extremities exam: PRESENT: other - Right BKA stump clean dry and intact. Prosthesis in the closet. Left CAM Walker in place. Results Laboratory Results: 11/14/16 05:27 11/14/16 05:27 11/08/16 11/09/16 11/09/16 21:40 03:11 09:18 CK-MB (CK-2) 0.42 0.24 < 0.22 Troponin I < 0.012 < 0.012 < 0.012 Impressions: Abdomen/Pelvis CT 11/08/16 00:00 IMPRESSION: NO SIGNIFICANT OR ACUTE FINDING IN THE ABDOMEN OR PELVIS ON CT SCAN WITH IV CONTRAST. Chest X-Ray 11/08/16 12:18 IMPRESSION: NO SIGNIFICANT RADIOGRAPHIC FINDING IN THE CHEST. Ankle X-Ray 11/08/16 12:19 IMPRESSION: Acute comminuted nondisplaced spiral fracture distal fibula with widening of the medial ankle mortise. Associated lateral soft tissue swelling and tibiotalar joint effusion Hand X-Ray 11/08/16 12:19 IMPRESSION: NEGATIVE STUDY OF THE LEFT HAND. NO RADIOGRAPHIC EVIDENCE OF ACUTE INJURY. Guidance Fluoroscopy 11/11/16 00:00 IMPRESSION: SUCCESSFUL PLACEMENT OF A 5 FR DUAL LUMEN 43 CM PICC IN THE LEFT BASILIC VEIN. Interventional Vascular Procedure 11/11/16 00:00 IMPRESSION: SUCCESSFUL PLACEMENT OF A 5 FR DUAL LUMEN 43 CM PICC IN THE LEFT BASILIC VEIN. PICC Line Insertion 11/11/16 08:00 IMPRESSION: SUCCESSFUL PLACEMENT OF A 5 FR DUAL LUMEN 43 CM PICC IN THE LEFT BASILIC VEIN. Status: Imported from PACS Assessment & Plan - Diagnosis (1) Fracture, fibula Qualifiers: Encounter type: initial encounter Fibula location: distal Fracture type: closed Laterality: left Is this a current diagnosis for this admission?: Yes (2) Nondisplaced comminuted fracture of shaft of left fibula Qualifiers: Encounter type: initial encounter Fracture type: closed Qualified Code(s) : S82.455A - Nondisplaced comminuted fracture of shaft of left fibula, initial encounter for closed fracture Is this a current diagnosis for this admission?: Yes Plan: Patient in a cam walker and a nonweightbearing ambulatory restriction - Time Time Spent with patient: 15-24 minutes Anticipated discharge: Other Within: Other
[2016-11-16] MEDS: OLANZAPINE 5 MG TABLET PO SCH (21:22)
[2016-11-16] MEDS: QUETIAPINE FUMARATE 100 MG TABLET PO SCH (21:24)
[2016-11-16] MEDS: TRAZODONE HCL 50 MG TABLET PO SCH (21:24)
[2016-11-16] MEDS: NORMAL SALINE 10 ML SDV (AFTER EACH USE) IV PRN (21:46)
[2016-11-17] MEDS: PROMETHAZINE HCL 25 MG TABLET PO SCH ×5 (00:35→23:27)
[2016-11-17] MEDS: ROPINIROLE HCL 0.25 MG TABLET PO SCH ×5 (00:35→23:27)
[2016-11-17] MEDS: GABAPENTIN 300 MG CAPSULE PO SCH ×3 (05:18→21:13)
[2016-11-17] MEDS: NORMAL SALINE 10 ML SDV (AFTER EACH USE) IV PRN (05:19)
[2016-11-17] MEDS: HYDROMORPHONE HCL INJ/PF 2 MG/ML AMPULE IV PRN ×3 (05:19→18:17)
--- NOTE | 2016-11-17 10:34 | PDOC PROGRESS REPORT ---
Subjective Progress Note for:: 11/17/16 Subjective:: No chest pain or difficulty with breathing. No nausea or vomiting. No abdominal pain. No reported fever or chills. Physical Exam Vital Signs: Temp Pulse Resp BP Pulse Ox 97.7 F 87 18 106/71 100 11/17/16 08:00 11/17/16 08:00 11/17/16 08:00 11/17/16 08:00 11/17/16 08:00 Intake & Output 11/16/16 11/17/16 11/18/16 06:59 06:59 06:59 Intake Total 2160 2600 Output Total 2200 4300 Balance -40 -1700 Weight 94.948 kg Physical Exam: General appearance: PRESENT: no acute distress, well-developed, well-nourished Head exam: PRESENT: atraumatic, normocephalic Eye exam: PRESENT: conjunctiva pink. ABSENT: scleral icterus Mouth exam: PRESENT: moist Respiratory exam: PRESENT: clear to auscultation jorge Cardiovascular exam: PRESENT: RRR. ABSENT: diastolic murmur, rubs, systolic murmur Vascular exam: PRESENT: normal capillary refill. ABSENT: pallor GI/Abdominal exam: PRESENT: normal bowel sounds, soft. ABSENT: distended, guarding, mass, organomegaly, rebound, tenderness Extremities exam: PRESENT: right BKA Neurological exam: PRESENT: alert, awake, oriented to person, oriented to place , oriented to time, oriented to situation, CN II-XII grossly intact. ABSENT: motor sensory deficit Psychiatric exam: PRESENT: appropriate affect, normal mood. ABSENT: homicidal ideation, suicidal ideation Skin exam: PRESENT: dry, intact, warm. ABSENT: cyanosis, rash Results Laboratory Results: 11/14/16 05:27 11/14/16 05:27 11/08/16 11/09/16 11/09/16 21:40 03:11 09:18 CK-MB (CK-2) 0.42 0.24 < 0.22 Troponin I < 0.012 < 0.012 < 0.012 Impressions: Abdomen/Pelvis CT 11/08/16 00:00 IMPRESSION: NO SIGNIFICANT OR ACUTE FINDING IN THE ABDOMEN OR PELVIS ON CT SCAN WITH IV CONTRAST. Chest X-Ray 11/08/16 12:18 IMPRESSION: NO SIGNIFICANT RADIOGRAPHIC FINDING IN THE CHEST. Ankle X-Ray 11/08/16 12:19 IMPRESSION: Acute comminuted nondisplaced spiral fracture distal fibula with widening of the medial ankle mortise. Associated lateral soft tissue swelling and tibiotalar joint effusion Hand X-Ray 11/08/16 12:19 IMPRESSION: NEGATIVE STUDY OF THE LEFT HAND. NO RADIOGRAPHIC EVIDENCE OF ACUTE INJURY. Guidance Fluoroscopy 11/11/16 00:00 IMPRESSION: SUCCESSFUL PLACEMENT OF A 5 FR DUAL LUMEN 43 CM PICC IN THE LEFT BASILIC VEIN. Interventional Vascular Procedure 11/11/16 00:00 IMPRESSION: SUCCESSFUL PLACEMENT OF A 5 FR DUAL LUMEN 43 CM PICC IN THE LEFT BASILIC VEIN. PICC Line Insertion 11/11/16 08:00 IMPRESSION: SUCCESSFUL PLACEMENT OF A 5 FR DUAL LUMEN 43 CM PICC IN THE LEFT BASILIC VEIN. Assessment & Plan - Diagnosis (1) Clostridium difficile enterocolitis Is this a current diagnosis for this admission?: Yes (2) Microcytic anemia Is this a current diagnosis for this admission?: Yes (3) Nondisplaced comminuted fracture of shaft of left fibula Qualifiers: Encounter type: initial encounter Fracture type: closed Qualified Code(s) : S82.455A - Nondisplaced comminuted fracture of shaft of left fibula, initial encounter for closed fracture Is this a current diagnosis for this admission?: Yes (4) Syncope Qualifiers: Encounter type: initial encounter Is this a current diagnosis for this admission?: Yes - Time Time Spent with patient: 25-34 minutes Medications reviewed and adjusted accordingly: Yes Anticipated discharge: SNF Within: Other - Inpatient Certification Based on my medical assessment, after consideration of the patient's comorbidities, presenting symptoms, or acuity I expect that the services needed warrant INPATIENT care.: Yes I certify that my determination is in accordance with my understanding of Medicare's requirements for reasonable and necessary INPATIENT services [42 CFR 412.3e].: Yes Medical Necessity: Need Close Monitoring Due to Risk of Patient Decompensation, Need for Pain Control, Risk of Complication if Not Cared For in Hospital Post Hospital Care: D/C or Transfer Summary - Plan Summary Plan Summary: See covering attending physician orders.
[2016-11-17] MEDS: NORMAL SALINE 10 ML SDV (SCHEDULED) IV SCH ×2 (10:35→21:21)
[2016-11-17] MEDS: LANSOPRAZOLE 30 MG TAB.RAP.DR PO SCH ×2 (10:35→17:33)
[2016-11-17] MEDS: TRAMADOL HCL 50 MG TABLET PO PRN ×2 (10:36→17:33)
[2016-11-17] MEDS: ESCITALOPRAM OXALATE 10 MG TABLET PO SCH (10:36)
[2016-11-17] MEDS: TAMSULOSIN HCL 0.4 MG CAP.SR.24H PO SCH (10:36)
[2016-11-17] MEDS: CYCLOBENZAPRINE HCL 10 MG TABLET PO PRN (13:52)
[2016-11-17] MEDS: QUETIAPINE FUMARATE 100 MG TABLET PO SCH (21:12)
[2016-11-17] MEDS: TRAZODONE HCL 50 MG TABLET PO SCH (21:13)
[2016-11-17] MEDS: OLANZAPINE 5 MG TABLET PO SCH (21:14)
[2016-11-18] MEDS: HYDROMORPHONE HCL INJ/PF 2 MG/ML AMPULE IV PRN ×4 (03:35→22:50)
[2016-11-18] MEDS: GABAPENTIN 300 MG CAPSULE PO SCH ×3 (05:09→21:38)
[2016-11-18] MEDS: ROPINIROLE HCL 0.25 MG TABLET PO SCH ×3 (05:09→18:41)
[2016-11-18] MEDS: PROMETHAZINE HCL 25 MG TABLET PO SCH ×3 (05:11→18:42)
[2016-11-18] MEDS: LANSOPRAZOLE 30 MG TAB.RAP.DR PO SCH ×2 (08:56→16:18)
[2016-11-18] MEDS: ESCITALOPRAM OXALATE 10 MG TABLET PO SCH (08:58)
[2016-11-18] MEDS: NORMAL SALINE 10 ML SDV (SCHEDULED) IV SCH ×2 (09:57→21:40)
[2016-11-18] MEDS: TAMSULOSIN HCL 0.4 MG CAP.SR.24H PO SCH (10:02)
[2016-11-18] MEDS: TRAMADOL HCL 50 MG TABLET PO PRN (11:54)
[2016-11-18] MEDS: TRAZODONE HCL 50 MG TABLET PO SCH (21:38)
[2016-11-18] MEDS: QUETIAPINE FUMARATE 100 MG TABLET PO SCH (21:38)
[2016-11-18] MEDS: NORMAL SALINE 10 ML SDV (AFTER EACH USE) IV PRN (21:40)
[2016-11-18] MEDS: OLANZAPINE 5 MG TABLET PO SCH (21:43)
--- NOTE | 2016-11-18 21:51 | PDOC PROGRESS REPORT ---
Subjective Progress Note for:: 11/18/16 Subjective:: Patient was seen by the bedside he is waiting for bed placement Physical Exam Vital Signs: Temp Pulse Resp BP Pulse Ox 98.9 F 87 18 109/77 100 11/18/16 20:00 11/18/16 20:00 11/18/16 20:00 11/18/16 20:00 11/18/16 16:00 Intake & Output 11/17/16 11/18/16 11/19/16 06:59 06:59 06:59 Intake Total 2600 900 2610 Output Total 4300 1450 2250 Balance -1700 -550 360 Weight 94.948 kg 95.2 kg General appearance: PRESENT: no acute distress Eye exam: PRESENT: PERRLA Respiratory exam: PRESENT: decreased breath sounds Cardiovascular exam: PRESENT: +S1, +S2 Neurological exam: PRESENT: alert Results Laboratory Results: 11/14/16 05:27 11/14/16 05:27 11/08/16 11/09/16 11/09/16 21:40 03:11 09:18 CK-MB (CK-2) 0.42 0.24 < 0.22 Troponin I < 0.012 < 0.012 < 0.012 Impressions: Abdomen/Pelvis CT 11/08/16 00:00 IMPRESSION: NO SIGNIFICANT OR ACUTE FINDING IN THE ABDOMEN OR PELVIS ON CT SCAN WITH IV CONTRAST. Chest X-Ray 11/08/16 12:18 IMPRESSION: NO SIGNIFICANT RADIOGRAPHIC FINDING IN THE CHEST. Ankle X-Ray 11/08/16 12:19 IMPRESSION: Acute comminuted nondisplaced spiral fracture distal fibula with widening of the medial ankle mortise. Associated lateral soft tissue swelling and tibiotalar joint effusion Hand X-Ray 11/08/16 12:19 IMPRESSION: NEGATIVE STUDY OF THE LEFT HAND. NO RADIOGRAPHIC EVIDENCE OF ACUTE INJURY. Guidance Fluoroscopy 11/11/16 00:00 IMPRESSION: SUCCESSFUL PLACEMENT OF A 5 FR DUAL LUMEN 43 CM PICC IN THE LEFT BASILIC VEIN. Interventional Vascular Procedure 11/11/16 00:00 IMPRESSION: SUCCESSFUL PLACEMENT OF A 5 FR DUAL LUMEN 43 CM PICC IN THE LEFT BASILIC VEIN. PICC Line Insertion 11/11/16 08:00 IMPRESSION: SUCCESSFUL PLACEMENT OF A 5 FR DUAL LUMEN 43 CM PICC IN THE LEFT BASILIC VEIN. Assessment & Plan - Diagnosis (1) Microcytic anemia Is this a current diagnosis for this admission?: Yes (2) Hypokalemia Is this a current diagnosis for this admission?: Yes (3) Clostridium difficile enterocolitis Is this a current diagnosis for this admission?: Yes (4) Nondisplaced comminuted fracture of shaft of left fibula Qualifiers: Encounter type: initial encounter Fracture type: closed Qualified Code(s) : S82.455A - Nondisplaced comminuted fracture of shaft of left fibula, initial encounter for closed fracture Is this a current diagnosis for this admission?: Yes (5) Syncope Qualifiers: Syncope type: unspecified Qualified Code(s): R55 - Syncope and collapse Is this a current diagnosis for this admission?: Yes
[2016-11-19] MEDS: ROPINIROLE HCL 0.25 MG TABLET PO SCH ×4 (00:24→19:56)
[2016-11-19] MEDS: PROMETHAZINE HCL 25 MG TABLET PO SCH ×4 (00:24→19:56)
[2016-11-19] MEDS: GABAPENTIN 300 MG CAPSULE PO SCH ×3 (05:16→21:56)
[2016-11-19] MEDS: ESCITALOPRAM OXALATE 10 MG TABLET PO SCH (07:54)
[2016-11-19] MEDS: LANSOPRAZOLE 30 MG TAB.RAP.DR PO SCH ×2 (07:55→16:41)
[2016-11-19] MEDS: HYDROMORPHONE HCL INJ/PF 2 MG/ML AMPULE IV PRN ×3 (07:55→20:21)
[2016-11-19] MEDS: TAMSULOSIN HCL 0.4 MG CAP.SR.24H PO SCH (10:09)
[2016-11-19] MEDS: NORMAL SALINE 10 ML SDV (SCHEDULED) IV SCH ×2 (10:09→21:56)
[2016-11-19] MEDS: NORMAL SALINE 10 ML SDV (AFTER EACH USE) IV PRN (14:20)
--- NOTE | 2016-11-19 20:42 | PDOC PROGRESS REPORT ---
Subjective Progress Note for:: 11/19/16 Subjective:: Patient is seen by the bedside there are no new clinical issues to address awaiting for long term placement for rehabilitation Physical Exam Vital Signs: Temp Pulse Resp BP Pulse Ox 98.6 F 107 H 17 104/76 95 11/19/16 15:13 11/19/16 19:15 11/19/16 15:13 11/19/16 15:13 11/19/16 15:13 Intake & Output 11/18/16 11/19/16 11/20/16 06:59 06:59 06:59 Intake Total 900 2610 840 Output Total 1450 2250 1500 Balance -550 360 -660 Weight 95.2 kg 95.2 kg General appearance: PRESENT: no acute distress Eye exam: PRESENT: PERRLA Respiratory exam: PRESENT: clear to auscultation jorge Cardiovascular exam: PRESENT: +S1, +S2 GI/Abdominal exam: PRESENT: soft Results Laboratory Results: 11/14/16 05:27 11/14/16 05:27 11/08/16 11/09/16 11/09/16 21:40 03:11 09:18 CK-MB (CK-2) 0.42 0.24 < 0.22 Troponin I < 0.012 < 0.012 < 0.012 Impressions: Abdomen/Pelvis CT 11/08/16 00:00 IMPRESSION: NO SIGNIFICANT OR ACUTE FINDING IN THE ABDOMEN OR PELVIS ON CT SCAN WITH IV CONTRAST. Chest X-Ray 11/08/16 12:18 IMPRESSION: NO SIGNIFICANT RADIOGRAPHIC FINDING IN THE CHEST. Ankle X-Ray 11/08/16 12:19 IMPRESSION: Acute comminuted nondisplaced spiral fracture distal fibula with widening of the medial ankle mortise. Associated lateral soft tissue swelling and tibiotalar joint effusion Hand X-Ray 11/08/16 12:19 IMPRESSION: NEGATIVE STUDY OF THE LEFT HAND. NO RADIOGRAPHIC EVIDENCE OF ACUTE INJURY. Guidance Fluoroscopy 11/11/16 00:00 IMPRESSION: SUCCESSFUL PLACEMENT OF A 5 FR DUAL LUMEN 43 CM PICC IN THE LEFT BASILIC VEIN. Interventional Vascular Procedure 11/11/16 00:00 IMPRESSION: SUCCESSFUL PLACEMENT OF A 5 FR DUAL LUMEN 43 CM PICC IN THE LEFT BASILIC VEIN. PICC Line Insertion 11/11/16 08:00 IMPRESSION: SUCCESSFUL PLACEMENT OF A 5 FR DUAL LUMEN 43 CM PICC IN THE LEFT BASILIC VEIN. Assessment & Plan - Diagnosis (1) Microcytic anemia Is this a current diagnosis for this admission?: Yes (2) Hypokalemia Is this a current diagnosis for this admission?: Yes (3) Clostridium difficile enterocolitis Is this a current diagnosis for this admission?: Yes (4) Nondisplaced comminuted fracture of shaft of left fibula Qualifiers: Encounter type: initial encounter Fracture type: closed Qualified Code(s) : S82.455A - Nondisplaced comminuted fracture of shaft of left fibula, initial encounter for closed fracture Is this a current diagnosis for this admission?: Yes (5) Syncope Qualifiers: Syncope type: unspecified Qualified Code(s): R55 - Syncope and collapse Is this a current diagnosis for this admission?: Yes
[2016-11-19] MEDS: OLANZAPINE 5 MG TABLET PO SCH (21:55)
[2016-11-19] MEDS: QUETIAPINE FUMARATE 100 MG TABLET PO SCH (21:55)
[2016-11-19] MEDS: TRAZODONE HCL 50 MG TABLET PO SCH (21:55)
[2016-11-20] MEDS: ROPINIROLE HCL 0.25 MG TABLET PO SCH ×4 (00:02→17:50)
[2016-11-20] MEDS: PROMETHAZINE HCL 25 MG TABLET PO SCH ×4 (00:02→17:50)
[2016-11-20] MEDS: GABAPENTIN 300 MG CAPSULE PO SCH ×3 (06:45→22:34)
[2016-11-20] MEDS: ESCITALOPRAM OXALATE 10 MG TABLET PO SCH (08:22)
[2016-11-20] MEDS: LANSOPRAZOLE 30 MG TAB.RAP.DR PO SCH ×2 (08:22→15:59)
[2016-11-20] MEDS: TAMSULOSIN HCL 0.4 MG CAP.SR.24H PO SCH (11:10)
[2016-11-20] MEDS: NORMAL SALINE 10 ML SDV (SCHEDULED) IV SCH ×2 (11:12→22:34)
[2016-11-20] MEDS: HYDROMORPHONE HCL INJ/PF 2 MG/ML AMPULE IV PRN (17:52)
--- NOTE | 2016-11-20 18:49 | PDOC PROGRESS REPORT ---
Subjective Progress Note for:: 11/20/16 Subjective:: Patient is seen by the bedside there are no new clinical issues to address awaiting for long-term placement for rehabilitation Physical Exam Vital Signs: Temp Pulse Resp BP Pulse Ox 98.8 F 99 16 119/75 99 11/20/16 15:20 11/20/16 15:20 11/20/16 15:20 11/20/16 15:20 11/20/16 15:20 Intake & Output 11/19/16 11/20/16 11/21/16 06:59 06:59 06:59 Intake Total 2610 1200 2280 Output Total 2250 2420 4400 Balance 360 -1220 -2120 Weight 95.2 kg 93 kg General appearance: PRESENT: no acute distress Eye exam: PRESENT: PERRLA Respiratory exam: PRESENT: clear to auscultation jorge Cardiovascular exam: PRESENT: +S1, +S2 GI/Abdominal exam: PRESENT: soft Results Laboratory Results: 11/14/16 05:27 11/14/16 05:27 11/08/16 11/09/16 11/09/16 21:40 03:11 09:18 CK-MB (CK-2) 0.42 0.24 < 0.22 Troponin I < 0.012 < 0.012 < 0.012 Impressions: Abdomen/Pelvis CT 11/08/16 00:00 IMPRESSION: NO SIGNIFICANT OR ACUTE FINDING IN THE ABDOMEN OR PELVIS ON CT SCAN WITH IV CONTRAST. Chest X-Ray 11/08/16 12:18 IMPRESSION: NO SIGNIFICANT RADIOGRAPHIC FINDING IN THE CHEST. Ankle X-Ray 11/08/16 12:19 IMPRESSION: Acute comminuted nondisplaced spiral fracture distal fibula with widening of the medial ankle mortise. Associated lateral soft tissue swelling and tibiotalar joint effusion Hand X-Ray 11/08/16 12:19 IMPRESSION: NEGATIVE STUDY OF THE LEFT HAND. NO RADIOGRAPHIC EVIDENCE OF ACUTE INJURY. Guidance Fluoroscopy 11/11/16 00:00 IMPRESSION: SUCCESSFUL PLACEMENT OF A 5 FR DUAL LUMEN 43 CM PICC IN THE LEFT BASILIC VEIN. Interventional Vascular Procedure 11/11/16 00:00 IMPRESSION: SUCCESSFUL PLACEMENT OF A 5 FR DUAL LUMEN 43 CM PICC IN THE LEFT BASILIC VEIN. PICC Line Insertion 11/11/16 08:00 IMPRESSION: SUCCESSFUL PLACEMENT OF A 5 FR DUAL LUMEN 43 CM PICC IN THE LEFT BASILIC VEIN. Assessment & Plan - Diagnosis (1) Microcytic anemia Is this a current diagnosis for this admission?: Yes (2) Hypokalemia Is this a current diagnosis for this admission?: Yes (3) Clostridium difficile enterocolitis Is this a current diagnosis for this admission?: Yes (4) Nondisplaced comminuted fracture of shaft of left fibula Qualifiers: Encounter type: initial encounter Fracture type: closed Qualified Code(s) : S82.455A - Nondisplaced comminuted fracture of shaft of left fibula, initial encounter for closed fracture Is this a current diagnosis for this admission?: Yes (5) Syncope Qualifiers: Syncope type: unspecified Qualified Code(s): R55 - Syncope and collapse Is this a current diagnosis for this admission?: Yes
[2016-11-20] MEDS: TRAZODONE HCL 50 MG TABLET PO SCH (22:34)
[2016-11-20] MEDS: OLANZAPINE 5 MG TABLET PO SCH (22:34)
[2016-11-20] MEDS: QUETIAPINE FUMARATE 100 MG TABLET PO SCH (22:34)
[2016-11-20] MEDS: TRAMADOL HCL 50 MG TABLET PO PRN (22:35)
[2016-11-21] MEDS: PROMETHAZINE HCL 25 MG TABLET PO SCH ×5 (00:11→23:56)
[2016-11-21] MEDS: ROPINIROLE HCL 0.25 MG TABLET PO SCH ×5 (00:11→23:56)
[2016-11-21] MEDS: GABAPENTIN 300 MG CAPSULE PO SCH ×3 (05:30→21:21)
[2016-11-21] MEDS: TRAMADOL HCL 50 MG TABLET PO PRN ×3 (05:31→18:56)
[2016-11-21] MEDS: TAMSULOSIN HCL 0.4 MG CAP.SR.24H PO SCH (11:12)
[2016-11-21] MEDS: ESCITALOPRAM OXALATE 10 MG TABLET PO SCH (11:12)
[2016-11-21] MEDS: NORMAL SALINE 10 ML SDV (SCHEDULED) IV SCH ×2 (11:13→21:22)
[2016-11-21] MEDS: LANSOPRAZOLE 30 MG TAB.RAP.DR PO SCH ×2 (11:13→16:08)
[2016-11-21] MEDS: HYDROMORPHONE HCL INJ/PF 2 MG/ML AMPULE IV PRN (20:08)
--- NOTE | 2016-11-21 21:05 | PDOC PROGRESS REPORT ---
Subjective Progress Note for:: 11/21/16 Subjective:: Patient is alert, he needed [facility] go [facility] for [facility] waiting for bed Physical Exam Vital Signs: Temp Pulse Resp BP Pulse Ox 97.8 F 84 18 115/74 99 11/21/16 12:44 11/21/16 19:00 11/21/16 12:44 11/21/16 15:40 11/21/16 15:40 Intake & Output 11/20/16 11/21/16 11/22/16 06:59 06:59 06:59 Intake Total 1200 2760 2860 Output Total 2420 5100 2900 Balance -1220 -2340 -40 Weight 93 kg 93.2 kg General appearance: PRESENT: no acute distress Eye exam: PRESENT: PERRLA Respiratory exam: PRESENT: rhonchi Cardiovascular exam: PRESENT: +S1, +S2 GI/Abdominal exam: PRESENT: soft Results Laboratory Results: 11/14/16 05:27 11/14/16 05:27 11/08/16 11/09/16 11/09/16 21:40 03:11 09:18 CK-MB (CK-2) 0.42 0.24 < 0.22 Troponin I < 0.012 < 0.012 < 0.012 Impressions: Abdomen/Pelvis CT 11/08/16 00:00 IMPRESSION: NO SIGNIFICANT OR ACUTE FINDING IN THE ABDOMEN OR PELVIS ON CT SCAN WITH IV CONTRAST. Chest X-Ray 11/08/16 12:18 IMPRESSION: NO SIGNIFICANT RADIOGRAPHIC FINDING IN THE CHEST. Ankle X-Ray 11/08/16 12:19 IMPRESSION: Acute comminuted nondisplaced spiral fracture distal fibula with widening of the medial ankle mortise. Associated lateral soft tissue swelling and tibiotalar joint effusion Hand X-Ray 11/08/16 12:19 IMPRESSION: NEGATIVE STUDY OF THE LEFT HAND. NO RADIOGRAPHIC EVIDENCE OF ACUTE INJURY. Guidance Fluoroscopy 11/11/16 00:00 IMPRESSION: SUCCESSFUL PLACEMENT OF A 5 FR DUAL LUMEN 43 CM PICC IN THE LEFT BASILIC VEIN. Interventional Vascular Procedure 11/11/16 00:00 IMPRESSION: SUCCESSFUL PLACEMENT OF A 5 FR DUAL LUMEN 43 CM PICC IN THE LEFT BASILIC VEIN. PICC Line Insertion 11/11/16 08:00 IMPRESSION: SUCCESSFUL PLACEMENT OF A 5 FR DUAL LUMEN 43 CM PICC IN THE LEFT BASILIC VEIN. Assessment & Plan - Diagnosis (1) Microcytic anemia Is this a current diagnosis for this admission?: Yes (2) Hypokalemia Is this a current diagnosis for this admission?: Yes (3) Clostridium difficile enterocolitis Is this a current diagnosis for this admission?: Yes (4) Nondisplaced comminuted fracture of shaft of left fibula Qualifiers: Encounter type: initial encounter Fracture type: closed Qualified Code(s) : S82.455A - Nondisplaced comminuted fracture of shaft of left fibula, initial encounter for closed fracture Is this a current diagnosis for this admission?: Yes (5) Syncope Qualifiers: Syncope type: unspecified Qualified Code(s): R55 - Syncope and collapse Is this a current diagnosis for this admission?: Yes
[2016-11-21] MEDS: TRAZODONE HCL 50 MG TABLET PO SCH (21:21)
[2016-11-21] MEDS: QUETIAPINE FUMARATE 100 MG TABLET PO SCH (21:21)
[2016-11-21] MEDS: OLANZAPINE 5 MG TABLET PO SCH (21:22)
[2016-11-22] MEDS: PROMETHAZINE HCL 25 MG TABLET PO SCH ×3 (05:52→18:33)
[2016-11-22] MEDS: GABAPENTIN 300 MG CAPSULE PO SCH ×3 (05:52→21:17)
[2016-11-22] MEDS: ROPINIROLE HCL 0.25 MG TABLET PO SCH ×3 (05:52→18:33)
[2016-11-22] MEDS: TRAMADOL HCL 50 MG TABLET PO PRN ×2 (06:25→21:17)
[2016-11-22] MEDS: ESCITALOPRAM OXALATE 10 MG TABLET PO SCH (10:59)
[2016-11-22] MEDS: CYCLOBENZAPRINE HCL 10 MG TABLET PO PRN (10:59)
[2016-11-22] MEDS: LANSOPRAZOLE 30 MG TAB.RAP.DR PO SCH ×2 (10:59→18:33)
[2016-11-22] MEDS: NORMAL SALINE 10 ML SDV (SCHEDULED) IV SCH ×2 (10:59→21:17)
[2016-11-22] MEDS: TAMSULOSIN HCL 0.4 MG CAP.SR.24H PO SCH (10:59)
[2016-11-22] MEDS ORDERED: HYDROMORPHONE HCL INJ/PF 2 MG/ML AMPULE IV ONE (14:00)
--- NOTE | 2016-11-22 19:15 | PDOC PROGRESS REPORT ---
Subjective Progress Note for:: 11/22/16 Subjective:: Patient seen by the bedside awaiting bed placement Physical Exam Vital Signs: Temp Pulse Resp BP Pulse Ox 98.5 F 87 18 102/67 97 11/22/16 15:50 11/22/16 15:50 11/22/16 15:50 11/22/16 15:50 11/22/16 15:50 Intake & Output 11/21/16 11/22/16 11/23/16 06:59 06:59 06:59 Intake Total 2760 3340 2040 Output Total 5100 3640 1550 Balance -2340 -300 490 Weight 93.2 kg 93.7 kg General appearance: PRESENT: no acute distress Eye exam: PRESENT: PERRLA Respiratory exam: PRESENT: clear to auscultation jorge Cardiovascular exam: PRESENT: +S1, +S2 GI/Abdominal exam: PRESENT: soft Results Laboratory Results: 11/14/16 05:27 11/14/16 05:27 11/08/16 11/09/16 11/09/16 21:40 03:11 09:18 CK-MB (CK-2) 0.42 0.24 < 0.22 Troponin I < 0.012 < 0.012 < 0.012 Impressions: Abdomen/Pelvis CT 11/08/16 00:00 IMPRESSION: NO SIGNIFICANT OR ACUTE FINDING IN THE ABDOMEN OR PELVIS ON CT SCAN WITH IV CONTRAST. Chest X-Ray 11/08/16 12:18 IMPRESSION: NO SIGNIFICANT RADIOGRAPHIC FINDING IN THE CHEST. Ankle X-Ray 11/08/16 12:19 IMPRESSION: Acute comminuted nondisplaced spiral fracture distal fibula with widening of the medial ankle mortise. Associated lateral soft tissue swelling and tibiotalar joint effusion Hand X-Ray 11/08/16 12:19 IMPRESSION: NEGATIVE STUDY OF THE LEFT HAND. NO RADIOGRAPHIC EVIDENCE OF ACUTE INJURY. Guidance Fluoroscopy 11/11/16 00:00 IMPRESSION: SUCCESSFUL PLACEMENT OF A 5 FR DUAL LUMEN 43 CM PICC IN THE LEFT BASILIC VEIN. Interventional Vascular Procedure 11/11/16 00:00 IMPRESSION: SUCCESSFUL PLACEMENT OF A 5 FR DUAL LUMEN 43 CM PICC IN THE LEFT BASILIC VEIN. PICC Line Insertion 11/11/16 08:00 IMPRESSION: SUCCESSFUL PLACEMENT OF A 5 FR DUAL LUMEN 43 CM PICC IN THE LEFT BASILIC VEIN. Assessment & Plan - Diagnosis (1) Microcytic anemia Is this a current diagnosis for this admission?: Yes (2) Hypokalemia Is this a current diagnosis for this admission?: Yes (3) Clostridium difficile enterocolitis Is this a current diagnosis for this admission?: Yes (4) Nondisplaced comminuted fracture of shaft of left fibula Qualifiers: Encounter type: initial encounter Fracture type: closed Qualified Code(s) : S82.455A - Nondisplaced comminuted fracture of shaft of left fibula, initial encounter for closed fracture Is this a current diagnosis for this admission?: Yes (5) Syncope Qualifiers: Syncope type: unspecified Qualified Code(s): R55 - Syncope and collapse Is this a current diagnosis for this admission?: Yes
[2016-11-22] MEDS: OLANZAPINE 5 MG TABLET PO SCH (21:17)
[2016-11-22] MEDS: QUETIAPINE FUMARATE 100 MG TABLET PO SCH (21:17)
[2016-11-22] MEDS: ACETAMINOPHEN 325 MG TABLET PO PRN (21:17)
[2016-11-22] MEDS: TRAZODONE HCL 50 MG TABLET PO SCH (21:17)
[2016-11-23] MEDS: GABAPENTIN 300 MG CAPSULE PO SCH ×3 (05:15→21:27)
[2016-11-23] MEDS: ROPINIROLE HCL 0.25 MG TABLET PO SCH ×5 (05:15→23:41)
[2016-11-23] MEDS: PROMETHAZINE HCL 25 MG TABLET PO SCH ×5 (05:15→23:40)
[2016-11-23] MEDS: ESCITALOPRAM OXALATE 10 MG TABLET PO SCH (10:21)
[2016-11-23] MEDS: LANSOPRAZOLE 30 MG TAB.RAP.DR PO SCH ×2 (10:22→17:42)
[2016-11-23] MEDS: TRAMADOL HCL 50 MG TABLET PO PRN ×3 (10:22→23:41)
[2016-11-23] MEDS: TAMSULOSIN HCL 0.4 MG CAP.SR.24H PO SCH (10:22)
[2016-11-23] MEDS: NORMAL SALINE 10 ML SDV (SCHEDULED) IV SCH ×2 (10:22→21:28)
--- NOTE | 2016-11-23 11:22 | PDOC PROGRESS REPORT ---
Subjective Progress Note for:: 11/23/16 Subjective:: 51-year-old male admitted for the C. difficile colitis and syncopal episode of the left ankle fractures Is currently doing well Still complaining of pain on the left ankle and asking for the pain medications patient is currently taking the tramadol as needed Patient is waiting to going to the [facility] Denied any loose stools denied any abdominal pain no nausea no vomiting Physical Exam Vital Signs: Temp Pulse Resp BP Pulse Ox 97.6 F 77 18 114/73 98 11/23/16 07:45 11/23/16 07:45 11/23/16 07:45 11/23/16 07:45 11/23/16 07:45 Intake & Output 11/22/16 11/23/16 11/24/16 06:59 06:59 06:59 Intake Total 3340 3440 Output Total 3640 4050 Balance -300 -610 Weight 93.7 kg 93.7 kg General appearance: PRESENT: no acute distress, well-developed, well-nourished Head exam: PRESENT: atraumatic, normocephalic Eye exam: PRESENT: conjunctiva pink, EOMI, PERRLA. ABSENT: scleral icterus Ear exam: PRESENT: normal external ear exam Mouth exam: PRESENT: moist, tongue midline Neck exam: PRESENT: full ROM. ABSENT: carotid bruit, JVD, lymphadenopathy, thyromegaly Respiratory exam: PRESENT: clear to auscultation jorge Cardiovascular exam: PRESENT: RRR. ABSENT: diastolic murmur, rubs, systolic murmur Pulses: PRESENT: normal dorsalis pedis pul, +2 pedal pulses bilateral Vascular exam: PRESENT: normal capillary refill GI/Abdominal exam: PRESENT: normal bowel sounds, soft. ABSENT: distended, guarding, mass, organolmegaly, rebound, tenderness Rectal exam: PRESENT: deferred Extremities exam: PRESENT: other Additional comments: Left ankle immobilizer is present Neurological exam: PRESENT: alert, awake, oriented to person, oriented to place , oriented to time, oriented to situation, CN II-XII grossly intact. ABSENT: motor sensory deficit Psychiatric exam: PRESENT: appropriate affect, normal mood. ABSENT: homicidal ideation, suicidal ideation Skin exam: PRESENT: dry, intact, warm. ABSENT: cyanosis, rash Results Laboratory Results: 11/14/16 05:27 11/14/16 05:27 11/08/16 11/09/16 11/09/16 21:40 03:11 09:18 CK-MB (CK-2) 0.42 0.24 < 0.22 Troponin I < 0.012 < 0.012 < 0.012 Impressions: Abdomen/Pelvis CT 11/08/16 00:00 IMPRESSION: NO SIGNIFICANT OR ACUTE FINDING IN THE ABDOMEN OR PELVIS ON CT SCAN WITH IV CONTRAST. Chest X-Ray 11/08/16 12:18 IMPRESSION: NO SIGNIFICANT RADIOGRAPHIC FINDING IN THE CHEST. Ankle X-Ray 11/08/16 12:19 IMPRESSION: Acute comminuted nondisplaced spiral fracture distal fibula with widening of the medial ankle mortise. Associated lateral soft tissue swelling and tibiotalar joint effusion Hand X-Ray 11/08/16 12:19 IMPRESSION: NEGATIVE STUDY OF THE LEFT HAND. NO RADIOGRAPHIC EVIDENCE OF ACUTE INJURY. Guidance Fluoroscopy 11/11/16 00:00 IMPRESSION: SUCCESSFUL PLACEMENT OF A 5 FR DUAL LUMEN 43 CM PICC IN THE LEFT BASILIC VEIN. Interventional Vascular Procedure 11/11/16 00:00 IMPRESSION: SUCCESSFUL PLACEMENT OF A 5 FR DUAL LUMEN 43 CM PICC IN THE LEFT BASILIC VEIN. PICC Line Insertion 11/11/16 08:00 IMPRESSION: SUCCESSFUL PLACEMENT OF A 5 FR DUAL LUMEN 43 CM PICC IN THE LEFT BASILIC VEIN. Assessment & Plan - Diagnosis (1) Clostridium difficile enterocolitis Is this a current diagnosis for this admission?: Yes (2) Hypokalemia Is this a current diagnosis for this admission?: Yes (3) Nondisplaced comminuted fracture of shaft of left fibula Qualifiers: Encounter type: initial encounter Fracture type: closed Qualified Code(s) : S82.455A - Nondisplaced comminuted fracture of shaft of left fibula, initial encounter for closed fracture Is this a current diagnosis for this admission?: Yes (4) Bipolar disorder Qualifiers: Active/Remission status: currently active Current bipolar episode type: mixed Current episode severity: severe Psychotic features: without psychotic features Qualified Code(s): F31.63 - Bipolar disorder, current episode mixed, severe, without psychotic features (5) Diabetes Qualifiers: Diabetes mellitus type: type 2 Diabetes mellitus complication status: with unspecified complications Diabetes mellitus longterm insulin use: without longterm use Qualified Code(s): E11.8 - Type 2 diabetes mellitus with unspecified complications (6) Hypertension Qualifiers: Hypertension type: essential hypertension Qualified Code(s): I10 - Essential (primary) hypertension - Time Time Spent with patient: 15-24 minutes Medications reviewed and adjusted accordingly: Yes Anticipated discharge: SNF Within: Other - Inpatient Certification Medical Necessity: Need Close Monitoring Due to Risk of Patient Decompensation Post Hospital Care: D/C Rheumatologist Documentation - Plan Summary Plan Summary: We will repeat the C. difficile see whether patient still needed a contact precaution are not. Put the OxyIR 5 mg as needed to control the pain
[2016-11-23] MEDS: OXYCODONE HCL IR 5 MG TABLET PO PRN ×2 (13:32→21:28)
[2016-11-23] MEDS: OLANZAPINE 5 MG TABLET PO SCH (21:27)
[2016-11-23] MEDS: TRAZODONE HCL 50 MG TABLET PO SCH (21:28)
[2016-11-23] MEDS: QUETIAPINE FUMARATE 100 MG TABLET PO SCH (21:28)
[2016-11-24] MEDS: OXYCODONE HCL IR 5 MG TABLET PO PRN ×3 (05:54→22:56)
[2016-11-24] MEDS: TRAMADOL HCL 50 MG TABLET PO PRN ×3 (05:54→23:18)
[2016-11-24] MEDS: GABAPENTIN 300 MG CAPSULE PO SCH ×3 (05:54→23:18)
[2016-11-24] MEDS: PROMETHAZINE HCL 25 MG TABLET PO SCH ×4 (05:54→23:18)
[2016-11-24] MEDS: ROPINIROLE HCL 0.25 MG TABLET PO SCH ×4 (05:54→23:18)
[2016-11-24 06:25] LABS: ANION GAP 8 (5-19); BLOOD UREA NITROGEN 9 mg/dL (7-20); CALCIUM 9.4 mg/dL (8.4-10.2); CARBON DIOXIDE 30 mmol/L (22-30); CHLORIDE 102 mmol/L (98-107); CREATININE RESULT 0.67 mg/dL (0.52-1.25); GLUCOSE 77 mg/dL (75-110); POTASSIUM 4.6 mmol/L (3.6-5.0)
[2016-11-24] MEDS: ESCITALOPRAM OXALATE 10 MG TABLET PO SCH (08:07)
[2016-11-24] MEDS: LANSOPRAZOLE 30 MG TAB.RAP.DR PO SCH ×2 (08:07→17:14)
[2016-11-24] MEDS: ONDANSETRON HCL 8 MG TABLET PO PRN ×2 (08:59→17:13)
[2016-11-24] MEDS: TAMSULOSIN HCL 0.4 MG CAP.SR.24H PO SCH (10:34)
[2016-11-24] MEDS: NORMAL SALINE 10 ML SDV (SCHEDULED) IV SCH ×2 (10:34→23:18)
[2016-11-24] MEDS: NORMAL SALINE 10 ML SDV (AFTER EACH USE) IV PRN (10:38)
--- NOTE | 2016-11-24 14:16 | PDOC PROGRESS REPORT ---
Subjective Progress Note for:: 11/24/16 Subjective:: Patient is currently doing fair. Patient's pain is under control with the oxycodone Is waiting to transfer to the rehab Physical Exam Vital Signs: Temp Pulse Resp BP Pulse Ox 98.0 F 92 18 125/82 98 11/24/16 12:12 11/24/16 12:12 11/24/16 12:12 11/24/16 12:12 11/24/16 12:12 Intake & Output 11/23/16 11/24/16 11/25/16 06:59 06:59 06:59 Intake Total 3440 2800 Output Total 4050 2050 Balance -610 750 Weight 93.7 kg 93.5 kg General appearance: PRESENT: no acute distress, well-developed, well-nourished Head exam: PRESENT: atraumatic, normocephalic Eye exam: PRESENT: conjunctiva pink, EOMI, PERRLA. ABSENT: scleral icterus Ear exam: PRESENT: normal external ear exam Mouth exam: PRESENT: moist, tongue midline Neck exam: PRESENT: full ROM. ABSENT: carotid bruit, JVD, lymphadenopathy, thyromegaly Respiratory exam: PRESENT: clear to auscultation jorge Cardiovascular exam: PRESENT: RRR. ABSENT: diastolic murmur, rubs, systolic murmur Pulses: PRESENT: normal dorsalis pedis pul, +2 pedal pulses bilateral Vascular exam: PRESENT: normal capillary refill GI/Abdominal exam: PRESENT: normal bowel sounds, soft. ABSENT: distended, guarding, mass, organolmegaly, rebound, tenderness Rectal exam: PRESENT: deferred Additional comments: The left lower extremity the immobilizer is present Neurological exam: PRESENT: alert, awake, oriented to person, oriented to place , oriented to time, oriented to situation, CN II-XII grossly intact. ABSENT: motor sensory deficit Psychiatric exam: PRESENT: appropriate affect, normal mood. ABSENT: homicidal ideation, suicidal ideation Skin exam: PRESENT: dry, intact, warm. ABSENT: cyanosis, rash Results Laboratory Results: 11/14/16 05:27 11/24/16 05:50 11/24/16 05:50 Sodium 140.0 Potassium 4.6 Chloride 102 Carbon Dioxide 30 Anion Gap 8 BUN 9 Creatinine 0.67 Est GFR ( Amer) > 60 Est GFR (Non-Af Amer) > 60 Glucose 77 Calcium 9.4 11/08/16 11/09/16 11/09/16 21:40 03:11 09:18 CK-MB (CK-2) 0.42 0.24 < 0.22 Troponin I < 0.012 < 0.012 < 0.012 Impressions: Abdomen/Pelvis CT 11/08/16 00:00 IMPRESSION: NO SIGNIFICANT OR ACUTE FINDING IN THE ABDOMEN OR PELVIS ON CT SCAN WITH IV CONTRAST. Chest X-Ray 11/08/16 12:18 IMPRESSION: NO SIGNIFICANT RADIOGRAPHIC FINDING IN THE CHEST. Ankle X-Ray 11/08/16 12:19 IMPRESSION: Acute comminuted nondisplaced spiral fracture distal fibula with widening of the medial ankle mortise. Associated lateral soft tissue swelling and tibiotalar joint effusion Hand X-Ray 11/08/16 12:19 IMPRESSION: NEGATIVE STUDY OF THE LEFT HAND. NO RADIOGRAPHIC EVIDENCE OF ACUTE INJURY. Guidance Fluoroscopy 11/11/16 00:00 IMPRESSION: SUCCESSFUL PLACEMENT OF A 5 FR DUAL LUMEN 43 CM PICC IN THE LEFT BASILIC VEIN. Interventional Vascular Procedure 11/11/16 00:00 IMPRESSION: SUCCESSFUL PLACEMENT OF A 5 FR DUAL LUMEN 43 CM PICC IN THE LEFT BASILIC VEIN. PICC Line Insertion 11/11/16 08:00 IMPRESSION: SUCCESSFUL PLACEMENT OF A 5 FR DUAL LUMEN 43 CM PICC IN THE LEFT BASILIC VEIN. Assessment & Plan - Diagnosis (1) Clostridium difficile enterocolitis Is this a current diagnosis for this admission?: Yes (2) Hypokalemia Is this a current diagnosis for this admission?: Yes (3) Nondisplaced comminuted fracture of shaft of left fibula Qualifiers: Encounter type: initial encounter Fracture type: closed Qualified Code(s) : S82.455A - Nondisplaced comminuted fracture of shaft of left fibula, initial encounter for closed fracture Is this a current diagnosis for this admission?: Yes (4) Bipolar disorder Qualifiers: Active/Remission status: currently active Current bipolar episode type: mixed Current episode severity: severe Psychotic features: without psychotic features Qualified Code(s): F31.63 - Bipolar disorder, current episode mixed, severe, without psychotic features Is this a current diagnosis for this admission?: Yes (5) Diabetes Qualifiers: Diabetes mellitus type: type 2 Diabetes mellitus complication status: with unspecified complications Diabetes mellitus long term care administrator insulin use: without penitentiary use Qualified Code(s): E11.8 - Type 2 diabetes mellitus with unspecified complications Is this a current diagnosis for this admission?: Yes (6) Hypertension Qualifiers: Hypertension type: essential hypertension Qualified Code(s): I10 - Essential (primary) hypertension - Time Time Spent with patient: 15-24 minutes Medications reviewed and adjusted accordingly: Yes Anticipated discharge: SNF Within: Other - Inpatient Certification Medical Necessity: Need Close Monitoring Due to Risk of Patient Decompensation Post Hospital Care: D/C Manager Product Marketing 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s
[2016-11-24] MEDS: OLANZAPINE 5 MG TABLET PO SCH (22:56)
[2016-11-24] MEDS: QUETIAPINE FUMARATE 100 MG TABLET PO SCH (22:57)
[2016-11-24] MEDS: TRAZODONE HCL 50 MG TABLET PO SCH (22:57)
[2016-11-25] MEDS: PROMETHAZINE HCL 25 MG TABLET PO SCH ×4 (05:29→23:18)
[2016-11-25] MEDS: ROPINIROLE HCL 0.25 MG TABLET PO SCH ×4 (05:29→23:18)
[2016-11-25] MEDS: GABAPENTIN 300 MG CAPSULE PO SCH ×3 (05:29→21:02)
[2016-11-25] MEDS: TAMSULOSIN HCL 0.4 MG CAP.SR.24H PO SCH (10:21)
[2016-11-25] MEDS: ESCITALOPRAM OXALATE 10 MG TABLET PO SCH (10:22)
[2016-11-25] MEDS: OXYCODONE HCL IR 5 MG TABLET PO PRN ×2 (10:22→18:37)
[2016-11-25] MEDS: LANSOPRAZOLE 30 MG TAB.RAP.DR PO SCH ×2 (10:22→18:02)
[2016-11-25] MEDS: NORMAL SALINE 10 ML SDV (SCHEDULED) IV SCH ×2 (10:27→21:02)
[2016-11-25] MEDS: TRAMADOL HCL 50 MG TABLET PO PRN ×2 (11:57→18:00)
--- NOTE | 2016-11-25 20:44 | PDOC TRANSFER SUMMARY ---
General - Admit/Disc Date/PCP Admission Date/Primary Care Provider: 11/08/16 21:02 MERYL ORNELAS MD Discharge Date: 11/26/16 - Discharge Diagnosis (1) Microcytic anemia Is this a current diagnosis for this admission?: Yes (2) Hypokalemia Is this a current diagnosis for this admission?: Yes (3) Clostridium difficile enterocolitis Is this a current diagnosis for this admission?: Yes (4) Nondisplaced comminuted fracture of shaft of left fibula Is this a current diagnosis for this admission?: Yes (5) Syncope Is this a current diagnosis for this admission?: Yes - Additional Information Resuscitation Status: Full Code Discharge Diet: Regular Discharge Activity: Activity As Tolerated, Balance Activity w/Rest Home Medications: Escitalopram Oxalate [Lexapro] 40 mg PO QAM 06/26/16 Gabapentin [Neurontin 300 mg Capsule] 300 mg PO Q8 06/26/16 Olanzapine [Zyprexa] 40 mg PO QHS 06/26/16 Quetiapine Fumarate [Seroquel] 600 mg PO QHS 06/26/16 Ropinirole HCl [Requip 0.25 mg Tablet] 0.25 mg PO Q6 06/26/16 Trazodone HCl [Desyrel] 200 mg PO QHS 07/12/16 Cyclobenzaprine HCl [Flexeril 10 mg Tablet] 10 mg PO Q8HP PRN 11/08/16 Pantoprazole Sodium [Protonix] 2 tab PO Q12 11/08/16 Promethazine HCl 25 mg PO Q6 11/08/16 Tamsulosin HCl [Flomax 0.4 mg Cap.sr] 0.8 mg PO DAILY 11/08/16 Acetaminophen [Tylenol 325 mg Tablet] 650 mg PO Q4HP PRN tablet 11/25/16 History of Present Illness Admission Date/PCP: 11/08/16 21:02 MERYL ORNELAS MD History of Present Illness: Patient was admitted when he presented with severe anemia, hemoglobin 5 associated with syncope spell, is sustained fracture of the left fibula he also had diarrhea due to C. difficile colitis Hospital Course Hospital Course: He was transfused with 5 units of packed red blood cells, this severe anemia is thought to be due to inadequate absorption of iron from the GI tract, he has a history of gastric bypass, he has had anemia in the past with multiple upper endoscopies and capsule endoscopies all came back negative he will need iron infusion after discharge he had episode of syncope and he also sustained fracture of the left fibula ,was seen by orthopedic and non-invasive intervention was recommended the plan to go to a snf for rehabilitation. He also had diarrhea due to C. difficile colitis with severe hypokalemia he was treated with Flagyl and IV potassium. Physical Exam Vital Signs: Temp Pulse Resp BP Pulse Ox 97.9 F 85 16 120/92 H 98 11/25/16 19:37 11/25/16 19:37 11/25/16 19:37 11/25/16 19:37 11/25/16 19:37 Intake & Output 11/24/16 11/25/16 11/26/16 06:59 06:59 06:59 Intake Total 2800 3320 2160 Output Total 2050 5700 2200 Balance 750 -2380 -40 Weight 93.5 kg 93.2 kg General appearance: PRESENT: no acute distress Head exam: PRESENT: atraumatic, normocephalic Eye exam: PRESENT: conjunctiva pink, EOMI, PERRLA Ear exam: PRESENT: normal external ear exam Mouth exam: PRESENT: moist, tongue midline Respiratory exam: PRESENT: clear to auscultation jorge Cardiovascular exam: PRESENT: RRR Vascular exam: PRESENT: normal capillary refill GI/Abdominal exam: PRESENT: normal bowel sounds, soft Rectal exam: PRESENT: deferred Extremities exam: PRESENT: full ROM Neurological exam: PRESENT: alert Psychiatric exam: PRESENT: appropriate affect, normal mood Skin exam: PRESENT: dry, intact, warm Results Laboratory Results: 11/14/16 05:27 11/24/16 05:50 11/08/16 11/09/16 11/09/16 21:40 03:11 09:18 CK-MB (CK-2) 0.42 0.24 < 0.22 Troponin I < 0.012 < 0.012 < 0.012 Impressions: Abdomen/Pelvis CT 11/08/16 00:00 IMPRESSION: NO SIGNIFICANT OR ACUTE FINDING IN THE ABDOMEN OR PELVIS ON CT SCAN WITH IV CONTRAST. Chest X-Ray 11/08/16 12:18 IMPRESSION: NO SIGNIFICANT RADIOGRAPHIC FINDING IN THE CHEST. Ankle X-Ray 11/08/16 12:19 IMPRESSION: Acute comminuted nondisplaced spiral fracture distal fibula with widening of the medial ankle mortise. Associated lateral soft tissue swelling and tibiotalar joint effusion Hand X-Ray 11/08/16 12:19 IMPRESSION: NEGATIVE STUDY OF THE LEFT HAND. NO RADIOGRAPHIC EVIDENCE OF ACUTE INJURY. Guidance Fluoroscopy 11/11/16 00:00 IMPRESSION: SUCCESSFUL PLACEMENT OF A 5 FR DUAL LUMEN 43 CM PICC IN THE LEFT BASILIC VEIN. Interventional Vascular Procedure 11/11/16 00:00 IMPRESSION: SUCCESSFUL PLACEMENT OF A 5 FR DUAL LUMEN 43 CM PICC IN THE LEFT BASILIC VEIN. PICC Line Insertion 11/11/16 08:00
--- NOTE | 2016-11-25 20:46 | PDOC PROGRESS REPORT ---
Subjective Progress Note for:: 11/25/16 Subjective:: Patient was seen by the bedside the plan is to transfer patient to snf for rehabilitation Physical Exam Vital Signs: Temp Pulse Resp BP Pulse Ox 97.9 F 85 16 120/92 H 98 11/25/16 19:37 11/25/16 19:37 11/25/16 19:37 11/25/16 19:37 11/25/16 19:37 Intake & Output 11/24/16 11/25/16 11/26/16 06:59 06:59 06:59 Intake Total 2800 3320 2160 Output Total 2050 5700 2200 Balance 750 -2380 -40 Weight 93.5 kg 93.2 kg General appearance: PRESENT: no acute distress Eye exam: PRESENT: PERRLA Respiratory exam: PRESENT: clear to auscultation jorge Cardiovascular exam: PRESENT: +S1, +S2 GI/Abdominal exam: PRESENT: soft Neurological exam: PRESENT: alert Results Laboratory Results: 11/14/16 05:27 11/24/16 05:50 11/08/16 11/09/16 11/09/16 21:40 03:11 09:18 CK-MB (CK-2) 0.42 0.24 < 0.22 Troponin I < 0.012 < 0.012 < 0.012 Impressions: Abdomen/Pelvis CT 11/08/16 00:00 IMPRESSION: NO SIGNIFICANT OR ACUTE FINDING IN THE ABDOMEN OR PELVIS ON CT SCAN WITH IV CONTRAST. Chest X-Ray 11/08/16 12:18 IMPRESSION: NO SIGNIFICANT RADIOGRAPHIC FINDING IN THE CHEST. Ankle X-Ray 11/08/16 12:19 IMPRESSION: Acute comminuted nondisplaced spiral fracture distal fibula with widening of the medial ankle mortise. Associated lateral soft tissue swelling and tibiotalar joint effusion Hand X-Ray 11/08/16 12:19 IMPRESSION: NEGATIVE STUDY OF THE LEFT HAND. NO RADIOGRAPHIC EVIDENCE OF ACUTE INJURY. Guidance Fluoroscopy 11/11/16 00:00 IMPRESSION: SUCCESSFUL PLACEMENT OF A 5 FR DUAL LUMEN 43 CM PICC IN THE LEFT BASILIC VEIN. Interventional Vascular Procedure 11/11/16 00:00 IMPRESSION: SUCCESSFUL PLACEMENT OF A 5 FR DUAL LUMEN 43 CM PICC IN THE LEFT BASILIC VEIN. PICC Line Insertion 11/11/16 08:00 IMPRESSION: SUCCESSFUL PLACEMENT OF A 5 FR DUAL LUMEN 43 CM PICC IN THE LEFT BASILIC VEIN. Assessment & Plan - Diagnosis (1) Microcytic anemia Is this a current diagnosis for this admission?: Yes (2) Hypokalemia Is this a current diagnosis for this admission?: Yes (3) Clostridium difficile enterocolitis Is this a current diagnosis for this admission?: Yes (4) Nondisplaced comminuted fracture of shaft of left fibula Qualifiers: Encounter type: initial encounter Fracture type: closed Qualified Code(s) : S82.455A - Nondisplaced comminuted fracture of shaft of left fibula, initial encounter for closed fracture Is this a current diagnosis for this admission?: Yes (5) Syncope Qualifiers: Syncope type: unspecified Qualified Code(s): R55 - Syncope and collapse Is this a current diagnosis for this admission?: Yes
[2016-11-25] MEDS: QUETIAPINE FUMARATE 100 MG TABLET PO SCH (21:02)
[2016-11-25] MEDS: OLANZAPINE 5 MG TABLET PO SCH (21:13)
[2016-11-25] MEDS: TRAZODONE HCL 50 MG TABLET PO SCH (21:14)
[2016-11-26] MEDS: CYCLOBENZAPRINE HCL 10 MG TABLET PO PRN (04:18)
[2016-11-26] MEDS: OXYCODONE HCL IR 5 MG TABLET PO PRN ×2 (04:18→12:18)
[2016-11-26] MEDS: TRAMADOL HCL 50 MG TABLET PO PRN ×2 (04:18→09:56)
[2016-11-26] MEDS: PROMETHAZINE HCL 25 MG TABLET PO SCH ×2 (06:15→11:46)
[2016-11-26] MEDS: GABAPENTIN 300 MG CAPSULE PO SCH ×2 (06:15→13:39)
[2016-11-26] MEDS: ROPINIROLE HCL 0.25 MG TABLET PO SCH ×2 (06:15→11:47)
[2016-11-26] MEDS: ONDANSETRON HCL 8 MG TABLET PO PRN (07:48)
[2016-11-26] MEDS: ESCITALOPRAM OXALATE 10 MG TABLET PO SCH (07:48)
[2016-11-26] MEDS: LANSOPRAZOLE 30 MG TAB.RAP.DR PO SCH (07:48)
[2016-11-26 09:32] VITALS: BP 121/87
[2016-11-26] MEDS: TAMSULOSIN HCL 0.4 MG CAP.SR.24H PO SCH (09:56)
[2016-11-26] MEDS: NORMAL SALINE 10 ML SDV (SCHEDULED) IV SCH (09:58)
[2016-11-26] MEDS: NORMAL SALINE 10 ML SDV (AFTER EACH USE) IV PRN (09:58)
== END 2016-11-26 14:52 | DRG 372 ==
LOC: ER 11:58 → UNDOADMIN 18:45 → EH 18:45 → 5 20:26 → EH 21:02 → 5 21:02
PROVIDERS: ADMIT Internal Medicine; ATTEND Internal Medicine
PROC: 30233N1 Transfusion of Nonautologous Red Blood Cells into Peripheral Vein, Percutaneous Approach (ICD-10-PCS; 2016-11-08)
PROC: 30233N1 Transfusion of Nonautologous Red Blood Cells into Peripheral Vein, Percutaneous Approach (ICD-10-PCS; 2016-11-09)
PROC: 02HV33Z Insertion of Infusion Device into Superior Vena Cava, Percutaneous Approach (ICD-10-PCS; principal; 2016-11-11)
PROC: B5181ZA Fluoroscopy of Superior Vena Cava using Low Osmolar Contrast, Guidance (ICD-10-PCS; 2016-11-11)
PROC: B548ZZA Ultrasonography of Superior Vena Cava, Guidance (ICD-10-PCS; 2016-11-11)
PROC: 30233N1 Transfusion of Nonautologous Red Blood Cells into Peripheral Vein, Percutaneous Approach (ICD-10-PCS; 2016-11-11)
PROC: 30233N1 Transfusion of Nonautologous Red Blood Cells into Peripheral Vein, Percutaneous Approach (ICD-10-PCS; 2016-11-12)
DX: A04.7 Enterocolitis due to Clostridium difficile (principal); F31.63 Bipolar disorder, current episode mixed, severe, without psychotic features; D50.8 Other iron deficiency anemias; E87.6 Hypokalemia; S82.455A Nondisplaced comminuted fracture of shaft of left fibula, initial encounter for closed fracture; W19.XXXA Unspecified fall, initial encounter; S30.810A Abrasion of lower back and pelvis, initial encounter; S80.212A Abrasion, left knee, initial encounter; E11.9 Type 2 diabetes mellitus without complications; I10 Essential (primary) hypertension; K21.9 Gastro-esophageal reflux disease without esophagitis; Z79.899 Other long term (current) drug therapy; Z98.84 Bariatric surgery status; Y99.9 Unspecified external cause status; Y92.9 Unspecified place or not applicable; Z88.8 Allergy status to other drugs, medicaments and biological substances; Z89.511 Acquired absence of right leg below knee
CPT/HCPCS: 36415; 36430; 36569; 71020; 74177; 76937; 77001; 80048; 80053; 80061; 80307; 81001; 82140; 82150; 82550; 82553; 82570; 83010; 83615; 83690; 83735; 84100; 84133; 84156; 84300; 84439; 84443; 84484; 85025; 85027; 85045; 85610; 85730; 86850; 86900; 86901; 86920; 87493; 93005; 93010; 96365; 96366; 96375; 96376; 99285; G8978-GP; G8979-GP; G8987-GO; G8988-GO; J1170; J1642; J1756; J2550; J2765; J3480; J3490; J7050; P9016; S0119

== ENCOUNTER 2016-12-12 14:07 | Emergency (ER) | payer MEDICARE ==
[2016-12-12] MEDS ORDERED: HYDROCODONE/ACETAMINOPHEN 5-325 MG TABLET PO ONE (15:47)
--- NOTE | 2016-12-12 15:53 | ER Document Report ---
ED Medical Screen (RME) - General Chief Complaint: Dizziness Stated Complaint: DIZZY Mode of Arrival: Ambulatory Information source: Patient TRAVEL OUTSIDE OF THE [place] IN LAST 30 DAYS: No - HPI Notes: 12/12/16 15:48 DIZZINESS. PT STATES THAT HE FEELS LIKE HE IS GOING TO PASS OUT WHEN STANDING. NO CP/SOB. HE FELL THIS AM D/T DIZZINESS AND RE-INJURED HIS LEFT THUMB. THE PT STATES THAT HE WAS ADMITTED LAST MONTH FOR ANEMIA AND SYNCOPE. NO SOURCE OF BLEEDING FOUND ACCORDING TO THE PT. HE STATES THAT THIS FEELS SIMILAR TO PRIOR EPISODES. LEFT THUMB SPICA SPLINT IN PLACE. RIGHT AKA. - Related Data Allergies/Adverse Reactions: aripiprazole [From [employer]] Adverse Reaction (Severe, Verified 12/12/16 14:28) "uncontrollable muscle tremors" Past Medical History - Past Medical History Cardiac Medical History: Reports: Hx Hypertension Denies: Hx Heart Murmur Pulmonary Medical History: Neurological Medical History: Denies: Hx Seizures Endocrine Medical History: Reports: Hx Diabetes Mellitus Type 2 - Since gastric bypass has been able to stop all medications Renal/ Medical History: Reports: Hx Kidney Stones - LEFT , "passed" multiple, ESWL x 2, "laser" surgery x 1. Denies: Hx Peritoneal Dialysis GI Medical History: Reports: Hx Gastroesophageal Reflux Disease, Hx Ulcer. Denies: Hx Pancreatitis Musculoskeltal Medical History: Reports Hx Arthritis Skin Medical History: Reports Hx MRSA Psychiatric Medical History: Reports: Hx Bipolar Disorder, Hx Depression Traumatic Medical History: Reports: Hx Fractures - RT ankle 2010 Infectious Medical History: Past Surgical History: Reports: Hx Abdominal Surgery - Repair of complications from gastric bypass, Hx Appendectomy - 1975, Hx Bowel Surgery - bowel perforation 09/26/2015, May 2016, Hx Gastric Bypass Surgery - 02/19/13, Hx Orthopedic Surgery - Right below-knee amputation, Hx Tonsillectomy - 1978 - Immunizations Immunizations up to date: Yes Hx Diphtheria, Pertussis, Tetanus Vaccination: Yes Review of Systems - Review of Systems -: Yes All other systems reviewed and negative Physical Exam - Vital signs Vitals: Temp Pulse Resp BP Pulse Ox 98.6 F 101 H 18 100/65 99 12/12/16 14:28 12/12/16 14:28 12/12/16 14:28 12/12/16 14:28 12/12/16 14:28 - General General appearance: Appears well - HEENT Head: Normocephalic - Respiratory Respiratory status: No respiratory distress Breath sounds: Normal - Cardiovascular Rhythm: Regular Heart sounds: Normal auscultation - Extremities General upper extremity: Other - TENDERNESS BASE OF LEFT THUMB General lower extremity: Normal inspection, Other - RIGHT AKA - Neurological Neuro grossly intact: Yes - Psychological Associated symptoms: Normal affect - Skin Skin Temperature: Warm Skin Moisture: Dry Skin Color: Normal Course - Vital Signs Vital signs: Temp Pulse Resp BP Pulse Ox 98.6 F 101 H 18 100/65 99 12/12/16 14:28 12/12/16 14:28 12/12/16 14:28 12/12/16 14:28 12/12/16 14:28
--- NOTE | 2016-12-12 17:00 | RADIOLOGY REPORT (SQ) ---
EXAM DESCRIPTION: CHEST PA/LAT COMPLETED DATE/TIME: 12/12/2016 4:52 pm REASON FOR STUDY: DIZZY COMPARISON: 11/08/2016, 07/11/2016, 06/26/2016 06/14/2015 EXAM PARAMETERS: NUMBER OF VIEWS: two views TECHNIQUE: Digital Frontal and Lateral radiographic views of the chest acquired. RADIATION DOSE: NA LIMITATIONS: none FINDINGS: LUNGS AND PLEURA: No opacities, masses or pneumothorax. No pleural effusion. MEDIASTINUM AND HILAR STRUCTURES: No masses or contour abnormalities. HEART AND VASCULAR STRUCTURES: Heart normal size. No evidence for failure. BONES: No acute findings. HARDWARE: None in the chest. OTHER: No other significant finding. IMPRESSION: NO SIGNIFICANT RADIOGRAPHIC FINDING IN THE CHEST. TECHNICAL DOCUMENTATION: JOB ID: [id number] [employer]- All Rights Reserved
[2016-12-12 17:01] LABS: ABSOLUTE EOSINOPHILS # (AUTO) 0.2 10^3/uL (0.0-0.6); ABSOLUTE LYMPHOCYTES (AUTO) 1.6 10^3/uL (0.5-4.7); ABSOLUTE MONOCYTES (AUTO) 0.3 10^3/uL (0.1-1.4); ABSOLUTE NEUT (AUTO) 3.1 10^3/uL (1.7-8.2); BASOPHILS % (AUTO) 0.3 % (0-2); EOSINOPHILS % (AUTO) 3.1 % (0-6); HEMATOCRIT 33.4 % (37.9-51.0); HEMOGLOBIN 10.8 g/dL (13.5-17.0); LYMPHOCYTES % (AUTO) 30.3 % (13-45); MEAN CORPUSCULAR HEMOGLOBIN 23.6 pg (27.0-33.4); MEAN CORPUSCULAR HGB CONC 32.4 g/dL (32.0-36.0); MEAN CORPUSCULAR VOLUME 73 fl (80-97); MONOCYTES % (AUTO) 6.8 % (3-13); RED BLOOD COUNT 4.58 10^6/uL (4.35-5.55); RED CELL DISTRIBUTION WIDTH 21.7 % (11.5-14.0); SEGMENTED NEUTROPHILS % (AUTO) 59.5 % (42-78); WHITE BLOOD COUNT 5.2 10^3/uL (4.0-10.5)
--- NOTE | 2016-12-12 17:03 | RADIOLOGY REPORT (SQ) ---
EXAM DESCRIPTION: HAND LEFT 3 VIEWS COMPLETED DATE/TIME: 12/12/2016 4:52 pm REASON FOR STUDY: S/P FALL COMPARISON: None. EXAM PARAMETERS: NUMBER OF VIEWS: Three views. TECHNIQUE: AP, lateral and oblique radiographic images acquired of the left hand. LIMITATIONS: None. FINDINGS: MINERALIZATION: Normal. BONES: There is a fracture at the base of the 2nd metacarpal at the carpometacarpal joint. Small felipe unt of periosteal new bone adjacent to the fracture site. This could represent acute on subacute inj ury. No other fractures are identified over the left hand. Base of the left 1st metacarpal is intact. JOINTS: No effusions. SOFT TISSUES: No soft tissue swelling. No foreign body. OTHER: No other significant finding. IMPRESSION: Nondisplaced fracture, base left 2nd metacarpal with adjacent periosteal new bone. This could represent acute on subacute injury. Area of concern was marked with a hopland on the AP and ob lique views of the left hand. TECHNICAL DOCUMENTATION: JOB ID: [id number] [employer]- All Rights Reserved
[2016-12-12 18:17] LABS: ALANINE AMINOTRANSFERASE 27 U/L (21-72); ALBUMIN 3.3 g/dL (3.5-5.0); ALKALINE PHOSPHATASE 94 U/L (38-126); ANION GAP 11 (5-19); ASPARTATE AMINO TRANSFERASE 20 U/L (17-59); BILIRUBIN,DIRECT 0.4 mg/dL (0.0-0.4); BILIRUBIN,TOTAL 0.4 mg/dL (0.2-1.3); BLOOD UREA NITROGEN 7 mg/dL (7-20); CALCIUM 9.2 mg/dL (8.4-10.2); CARBON DIOXIDE 27 mmol/L (22-30); CHLORIDE 106 mmol/L (98-107); CREATINE KINASE 38 U/L (55-170); CREATININE RESULT 0.95 mg/dL (0.52-1.25); GLUCOSE 74 mg/dL (75-110); SODIUM 143.6 mmol/L (137-145); TOTAL PROTEIN 6.2 g/dL (6.3-8.2)
[2016-12-12 18:28] LABS: CREATINE KINASE MB 1.05 ng/mL (<4.55)
[2016-12-12 18:30] LABS: TROPONIN I < 0.012 ng/mL
[2016-12-12] MEDS ORDERED: IBUPROFEN 600 MG TABLET PO ONE (18:35)
[2016-12-12] MEDS ORDERED: NORMAL SALINE 1000 ML 1,000 ML IV ONE (18:35)
--- NOTE | 2016-12-12 19:06 | ER Document Report ---
ED Dizziness/Weakness - General Chief Complaint: Dizziness Stated Complaint: DIZZY Time Seen by Provider: 12/12/16 18:12 Mode of Arrival: Ambulatory Notes: The patient is a 51-year-old male, past medical history bipolar, history of gastric bypass with resulting anemia, prior left hand injury, presents after he began to feel lightheaded after standing earlier today, fell and landed on his left hand again. He wears a thumb spica on that area, but the pain has worsened. Patient was admitted last month for anemia, syncope, C. diff and was transfused 5 units of PRBCs. He denies numbness, tingling, chest pain, shortness of breath, leg swelling, hemoptysis, head injury, neck pain, fevers, diarrhea, abdominal pain or back pain. TRAVEL OUTSIDE OF THE [place] IN LAST 30 DAYS: No - Related Data Allergies/Adverse Reactions: aripiprazole [From [employer]] Adverse Reaction (Severe, Verified 12/12/16 14:28) "uncontrollable muscle tremors" Past Medical History - General Information source: Patient - Social History Smoking Status: Never Smoker Chew tobacco use (# tins/day): No Frequency of alcohol use: None Drug Abuse: None Family History: Reviewed & Not Pertinent, CAD, Hypertension, Other - ulcers father and sister Patient has suicidal ideation: No - Past Medical History Cardiac Medical History: Reports: Hx Hypertension Denies: Hx Heart Murmur Pulmonary Medical History: Neurological Medical History: Denies: Hx Seizures Endocrine Medical History: Reports: Hx Diabetes Mellitus Type 2 - Since gastric bypass has been able to stop all medications Renal/ Medical History: Reports: Hx Kidney Stones - LEFT , "passed" multiple, ESWL x 2, "laser" surgery x 1. Denies: Hx Peritoneal Dialysis GI Medical History: Reports: Hx Gastroesophageal Reflux Disease, Hx Ulcer. Denies: Hx Pancreatitis Musculoskeltal Medical History: Reports Hx Arthritis Skin Medical History: Reports Hx MRSA Psychiatric Medical History: Reports: Hx Bipolar Disorder, Hx Depression Traumatic Medical History: Reports: Hx Fractures - RT ankle 2010 Infectious Medical History: Past Surgical History: Reports: Hx Abdominal Surgery - Repair of complications from gastric bypass, Hx Appendectomy - 1975, Hx Bowel Surgery - bowel perforation 09/26/2015, May 2016, Hx Gastric Bypass Surgery - 02/19/13, Hx Orthopedic Surgery - Right below-knee amputation, Hx Tonsillectomy - 1978 - Immunizations Immunizations up to date: Yes Hx Diphtheria, Pertussis, Tetanus Vaccination: Yes Hx Pneumococcal Vaccination: 03/03/11 Review of Systems - Review of Systems Notes: REVIEW OF SYSTEMS: CONSTITUTIONAL: -fevers, -chills EENT: -eye pain, -difficulty swallowing, -nasal congestion CARDIOVASCULAR:-chest pain, -syncope. RESPIRATORY: -cough, -SOB GASTROINTESTINAL: -abdominal pain, - nausea, -vomiting, -diarrhea GENITOURINARY: -dysuria, -hematuria MUSCULOSKELETAL: -back pain, -neck pain, +left hand injury SKIN: -rash or skin lesions. HEMATOLOGIC: -easy bruising or bleeding. LYMPHATIC: -swollen, enlarged glands. NEUROLOGICAL: -altered mental status or loss of consciousness, -headache, - neurologic symptoms PSYCHIATRIC: -anxiety, -depression. ALL OTHER SYSTEMS REVIEWED AND NEGATIVE. Physical Exam - Vital signs Vitals: Temp Pulse Resp BP Pulse Ox 98.6 F 101 H 18 100/65 99 12/12/16 14:28 12/12/16 14:28 12/12/16 14:28 12/12/16 14:28 12/12/16 14:28 - Notes Notes: PHYSICAL EXAMINATION: GENERAL: Well-appearing, well-nourished and in no acute distress. HEAD: Atraumatic, normocephalic. EYES: Pupils equal round and reactive to light, extraocular movements intact, sclera anicteric, conjunctiva are normal. ENT: nares patent, oropharynx clear without exudates. Moist mucous membranes. NECK: Normal range of motion, supple without lymphadenopathy LUNGS: Breath sounds clear to auscultation bilaterally and equal. No wheezes rales or rhonchi. HEART: Regular rate and rhythm without murmurs ABDOMEN: Soft, nontender, normoactive bowel sounds. No guarding, no rebound. No masses appreciated. EXTREMITIES: Left hand in thumb spica splint, mild tenderness at base of left 2nd metacarpal. Right BKA. Left foot in foot splint. NEUROLOGICAL: Cranial nerves grossly intact. Normal speech, normal gait. Normal sensory and motor exams. PSYCH: Normal mood, normal affect. SKIN: Warm, Dry, normal turgor, no rashes or lesions noted. Course - Re-evaluation Re-evalutation: Patient appears well. He has no evidence of anemia and his blood pressure is normal. He has no chest pain or shortness of breath to suggest PE. Accu-Chek is 74 and patient was fed. EKG, chest x-ray and rest of labs are all unremarkable. After IV fluids, patient feels much better and is not having any of his lightheaded symptoms. Will send patient home with follow-up at his primary care physician. - Vital Signs Vital signs: Temp Pulse Resp BP Pulse Ox 98.6 F 101 H 18 100/65 99 12/12/16 14:28 12/12/16 14:28 12/12/16 14:28 12/12/16 14:28 12/12/16 14:28 - Laboratory Result Diagrams: 12/12/16 15:38 12/12/16 17:40 Laboratory results interpreted by me: 12/12/16 12/12/16 15:38 17:40 Hgb 10.8 L Hct 33.4 L MCV 73 L MCH 23.6 L RDW 21.7 H Glucose 74 L Creatine Kinase 38 L Total Protein 6.2 L Albumin 3.3 L - Diagnostic Test Radiology reviewed: Image reviewed, Reports reviewed Radiology results interpreted by me: Left hand x-ray: Nondisplaced fracture, base left 2nd metacarpal with adjacent periosteal new bone. This could represent acute on subacute injury. Area of concern was marked with a benton on the AP and oblique views of the left hand. CXR: NAD Discharge - Discharge Clinical Impression: Light-headed feeling Fx metacarpal Qualifiers: Encounter type: initial encounter Metacarpal bone: second Fracture type: closed Metacarpal location: base Fracture alignment: nondisplaced Laterality: left Qualified Code(s): S62.341A - Nondisplaced fracture of base of second metacarpal bone, left hand, initial encounter for closed fracture Condition: Stable Disposition: HOME, SELF-CARE Additional Instructions: NEAR SYNCOPAL EPISODE: Syncope or near syncope (fainting or near-fainting) can occur from many different health problems. Or it can be a simple fainting spell requiring no treatment. It is safe for you to go home, but further evaluation will likely be necessary. Your work-up may include tests for internal bleeding, heart disease, medication problems, or near-strokes. Tests are not always required, however, depending on the nature of your problem. The warning signs of an impending faint include: dizziness, lightheadedness , nausea, hot flashes, tingling, and weakness. If this happens, lay down and put your feet up, then wait until all of these symptoms have passed before standing up again. If these episodes become recurrent, or if you develop chest pain, heart palpitations, mental confusion, blurred vision, or headache, then you should call the physician, or go to the emergency room. NORMAL EXAM AND WORKUP: At this time, your examination and workup show no significant abnormality. No significant abnormal physical findings were noted. All laboratory, EKG, and imaging (x-ray, CT scans, ultrasound) studies that were ordered show no significant abnormality. Although your examination and all studies that were ordered showed no significant abnormal finding, there are no examinations and no studies that are 100% accurate. There is always the possibility that some abnormality could exist and not be detected with physical examination or within the limits and capabilities of laboratory and other studies. You should return or follow up as you were instructed on your visit today for further evaluation if your symptoms do not resolve. FOLLOW-UP CARE: If you have been referred to a physician for follow-up care, call the physician s office for an appointment as you were instructed or within the next two days. If you experience worsening or a significant change in your symptoms, notify the physician immediately or return to the Emergency Department at any time for re-evaluation. Referrals: MERYL ORNELAS MD [Primary Care Provider] - Follow up as needed JORGE GARCIAS DO [ACTIVE STAFF] - Follow up as needed
--- NOTE | 2016-12-12 19:57 | EKG REPORT ---
SEVERITY:- ABNORMAL ECG - SINUS RHYTHM PROBABLE LVH WITH SECONDARY REPOL ABNRM : Confirmed by: Cricket Pantoja MD 12-Dec-2016 19:57:15
[2016-12-12 20:45] VITALS: BP 106/66
== END 2016-12-12 20:44 | disposition home or self-care (01) ==
LOC: ER 14:07
DX: S62.341A Nondisplaced fracture of base of second metacarpal bone, left hand, initial encounter for closed fracture (principal); W19.XXXA Unspecified fall, initial encounter; R42 Dizziness and giddiness; I10 Essential (primary) hypertension; Z98.84 Bariatric surgery status
CPT/HCPCS: 99284; 96360; 86900; 86901; 36415; 82553; 86850; 82550; 85025; 80053; 84484; 71020; 73130; 93005; 93010; A9270 ×2; J7030

== ENCOUNTER 2016-12-18 07:47 | Emergency (ER) | payer MEDICARE, MEDICAID ==
[2016-12-18] MEDS ORDERED: NORMAL SALINE 1000 ML 1,000 ML IV ONE (08:27)
[2016-12-18] MEDS ORDERED: OXYCODONE-ACETAMINOPHEN 5-325 MG TABLET PO ONE (08:58)
--- NOTE | 2016-12-18 09:04 | ER Document Report ---
ED Dizziness/Weakness - General Chief Complaint: Dizziness Stated Complaint: FALL LEG,ARM PAIN Time Seen by Provider: 12/18/16 08:26 Mode of Arrival: Ambulatory Information source: Patient Notes: Patient is a 51-year-old male who has a history of anemia who presents to the ER today for dizziness and syncope prior to arrival. Patient states that he received a blood transfusion and iron injections as recently as last month for the exact same symptoms. Patient states that last month whenever he did pass out he broke his left ankle in a fall, he also states that he broke the base of his left thumb. Patient states that today he fell on his left side again and is hurting to the left forearm in the left ankle "exactly where he broke it before." Patient states that he did feel lightheaded today prior to passing out. he states that he sometimes feels lightheaded. Pt denies hitting his head, states he "caught himself." TRAVEL OUTSIDE OF THE [place] IN LAST 30 DAYS: No - Related Data Allergies/Adverse Reactions: aripiprazole [From [facility]] Adverse Reaction (Severe, Verified 12/18/16 07:50) "uncontrollable muscle tremors" Past Medical History - General Information source: Patient - Social History Smoking Status: Former Smoker Chew tobacco use (# tins/day): No Frequency of alcohol use: None Drug Abuse: None Family History: Reviewed & Not Pertinent, CAD, Hypertension, Other - ulcers father and sister Patient has suicidal ideation: No Patient has homicidal ideation: No - Past Medical History Cardiac Medical History: Reports: Hx Hypertension Denies: Hx Heart Murmur Pulmonary Medical History: Neurological Medical History: Denies: Hx Seizures Endocrine Medical History: Reports: Hx Diabetes Mellitus Type 2 - Since gastric bypass has been able to stop all medications Renal/ Medical History: Reports: Hx Kidney Stones - LEFT , "passed" multiple, ESWL x 2, "laser" surgery x 1. Denies: Hx Peritoneal Dialysis GI Medical History: Reports: Hx Gastroesophageal Reflux Disease, Hx Ulcer. Denies: Hx Pancreatitis Musculoskeltal Medical History: Reports Hx Arthritis Skin Medical History: Reports Hx MRSA Psychiatric Medical History: Reports: Hx Bipolar Disorder, Hx Depression Traumatic Medical History: Reports: Hx Fractures - RT ankle 2010 Infectious Medical History: Past Surgical History: Reports: Hx Abdominal Surgery - Repair of complications from gastric bypass, Hx Appendectomy - 1975, Hx Bowel Surgery - bowel perforation 09/26/2015, May 2016, Hx Gastric Bypass Surgery - 02/19/13, Hx Orthopedic Surgery - Right below-knee amputation, Hx Tonsillectomy - 1978 - Immunizations Immunizations up to date: Yes Hx Diphtheria, Pertussis, Tetanus Vaccination: Yes Hx Pneumococcal Vaccination: 03/03/11 Review of Systems - Review of Systems Constitutional: See HPI EENT: No symptoms reported Cardiovascular: No symptoms reported Respiratory: No symptoms reported Gastrointestinal: No symptoms reported Genitourinary: No symptoms reported Male Genitourinary: No symptoms reported Musculoskeletal: See HPI Skin: No symptoms reported Hematologic/Lymphatic: No symptoms reported Neurological/Psychological: See HPI Physical Exam - Vital signs Vitals: Temp Pulse Resp BP Pulse Ox 98.0 F 88 14 121/81 98 12/18/16 07:52 12/18/16 07:52 12/18/16 07:52 12/18/16 07:52 12/18/16 07:52 - Notes Notes: PHYSICAL EXAMINATION: GENERAL: Well-appearing and in no acute distress. HEAD: Atraumatic, normocephalic. EYES: Pupils equal round and reactive to light, extraocular movements intact, sclera anicteric, conjunctiva are normal. NECK: Normal range of motion, supple without lymphadenopathy LUNGS: CTAB and equal. No wheezes rales or rhonchi. HEART: Regular rate and rhythm without murmurs ABDOMEN: Soft, no tenderness. No guarding, no rebound BACK: no vertebral tenderness, normal ROM GI/: no CVA tenderness EXTREMITIES: left lateral ankle mildly tender to palpation, left lateral forearm tender to palpation, otherwise Normal range of motion, no pitting edema. No cyanosis. NEUROLOGICAL: Cranial nerves grossly intact. Normal sensory/motor exams. PSYCH: Normal mood, normal affect. SKIN: Warm, Dry, normal turgor, no rashes or lesions noted Course - Re-evaluation Re-evalutation: 12/18/16 14:01 Hemoglobin is 10.7, other lab work is unremarkable today, cardiac enzymes normal , left ankle reveals a healing fracture but no acute pathology, left forearm reveals no acute pathology. Patient discharged to follow-up with primary care provider. 12/18/16 14:02 - Vital Signs Vital signs: Temp Pulse Resp BP Pulse Ox 98.1 F 86 17 117/72 99 12/18/16 11:05 12/18/16 11:05 12/18/16 11:05 12/18/16 11:05 12/18/16 11:05 - Laboratory Result Diagrams: 12/18/16 09:06 12/18/16 09:06 Laboratory results interpreted by me: 12/18/16 12/18/16 09:06 09:06 Hgb 10.7 L Hct 32.4 L MCV 71 L MCH 23.4 L RDW 21.0 H AST 15 L Creatine Kinase 22 L Albumin 3.4 L Discharge - Discharge Clinical Impression: Left forearm pain Fall Qualifiers: Encounter type: initial encounter Qualified Code(s): W19.XXXA - Unspecified fall, initial encounter Ankle pain Qualifiers: Chronicity: acute Laterality: left Qualified Code(s): M25.572 - Pain in left ankle and joints of left foot Condition: Stable Disposition: HOME, SELF-CARE Instructions: Dizziness ([facility]), Ice & Elevation ([facility]) Additional Instructions: Your hemoglobin is good today, over 10. Your ankle x-ray and left forearm x- ray show no fracture, healing fracture to the left ankle. Return immediately for any new or worsening symptoms. Follow up with primary care provider, call tomorrow to make followup appointment. Prescriptions: Hydrocodone/Acetaminophen [[place] 5-325 mg Tablet] 1 tab PO Q4 PRN #10 tablet PRN Reason: Referrals: MERYL ORNELAS MD [ACTIVE STAFF] - Follow up as needed
[2016-12-18 09:22] LABS: ABSOLUTE EOSINOPHILS # (AUTO) 0.1 10^3/uL (0.0-0.6); ABSOLUTE LYMPHOCYTES (AUTO) 1.3 10^3/uL (0.5-4.7); ABSOLUTE MONOCYTES (AUTO) 0.4 10^3/uL (0.1-1.4); ABSOLUTE NEUT (AUTO) 4.5 10^3/uL (1.7-8.2); BASOPHILS % (AUTO) 0.3 % (0-2); EOSINOPHILS % (AUTO) 1.5 % (0-6); HEMATOCRIT 32.4 % (37.9-51.0); HEMOGLOBIN 10.7 g/dL (13.5-17.0); HGB HCT DIFFERENCE -0.3; LYMPHOCYTES % (AUTO) 20.6 % (13-45); MEAN CORPUSCULAR HEMOGLOBIN 23.4 pg (27.0-33.4); MEAN CORPUSCULAR VOLUME 71 fl (80-97); MONOCYTES % (AUTO) 6.3 % (3-13); RED BLOOD COUNT 4.58 10^6/uL (4.35-5.55); SEGMENTED NEUTROPHILS % (AUTO) 71.3 % (42-78); WHITE BLOOD COUNT 6.3 10^3/uL (4.0-10.5)
[2016-12-18 09:39] LABS: ALANINE AMINOTRANSFERASE 24 U/L (21-72); ALBUMIN 3.4 g/dL (3.5-5.0); ALKALINE PHOSPHATASE 96 U/L (38-126); ANION GAP 12 (5-19); ASPARTATE AMINO TRANSFERASE 15 U/L (17-59); BILIRUBIN,DIRECT 0.3 mg/dL (0.0-0.4); BILIRUBIN,TOTAL 0.5 mg/dL (0.2-1.3); BLOOD UREA NITROGEN 7 mg/dL (7-20); CARBON DIOXIDE 26 mmol/L (22-30); CHLORIDE 103 mmol/L (98-107); CREATINE KINASE 22 U/L (55-170); CREATININE RESULT 0.76 mg/dL (0.52-1.25); GLUCOSE 86 mg/dL (75-110); POTASSIUM 4.3 mmol/L (3.6-5.0); TOTAL PROTEIN 6.3 g/dL (6.3-8.2)
--- NOTE | 2016-12-18 09:48 | RADIOLOGY REPORT (SQ) ---
EXAM DESCRIPTION: FOREARM LEFT COMPLETED DATE/TIME: 12/18/2016 9:39 am REASON FOR STUDY: fall, pain, previous fx COMPARISON: None. NUMBER OF VIEWS: Two views left forearm. LIMITATIONS: None. FINDINGS: There is no acute or significant bone, joint or soft tissue abnormality. OTHER: No other significant finding. IMPRESSION: NORMAL STUDY. TECHNICAL DOCUMENTATION: JOB ID: [id number]
--- NOTE | 2016-12-18 09:49 | RADIOLOGY REPORT (SQ) ---
EXAM DESCRIPTION: ANKLE LEFT COMPLETE COMPLETED DATE/TIME: 12/18/2016 9:39 am REASON FOR STUDY: fall, pain, previous fx COMPARISON: 11/08/2016. NUMBER OF VIEWS: Three views left ankle. LIMITATIONS: None. FINDINGS: No change in alignment of distal fibula intra-articular fractures. Fracture lines are sti ll well visualized, however there is some forming callus. No new fracture detected. Soft tissue swe lling. Joint effusion. OTHER: No other significant finding. IMPRESSION: 1. Known distal fibula fractures without change in alignment. Some healing callus ident ified. No new fracture. TECHNICAL DOCUMENTATION: JOB ID: [id number]
[2016-12-18 09:54] LABS: CREATINE KINASE MB 0.52 ng/mL (<4.55)
[2016-12-18 10:01] LABS: TROPONIN I < 0.012 ng/mL
[2016-12-18 11:12] VITALS: BP 117/72
== END 2016-12-18 11:13 | disposition home or self-care (01) ==
LOC: ER 07:47
DX: M79.632 Pain in left forearm (principal); M25.572 Pain in left ankle and joints of left foot; W19.XXXA Unspecified fall, initial encounter; S82.832D Other fracture of upper and lower end of left fibula, subsequent encounter for closed fracture with routine healing; W19.XXXD Unspecified fall, subsequent encounter; R55 Syncope and collapse; I10 Essential (primary) hypertension; Z98.84 Bariatric surgery status; Z89.511 Acquired absence of right leg below knee; Z87.891 Personal history of nicotine dependence
CPT/HCPCS: 99284; 96360; 36415; 82553; 82550; 85025; 80053; 84484; 73610; 73090; A9270; J7030

== ENCOUNTER 2016-12-24 14:20 | Day surgery (SDC) | payer MEDICARE ==
[2016-12-24] MEDS ORDERED: NALOXONE HCL INJ/PF 0.4 MG/1 ML SDV ONE (15:19)
[2016-12-24] MEDS ORDERED: MIDAZOLAM 2 MG/2 ML INJ ONE (15:19)
[2016-12-24] MEDS ORDERED: FENTANYL CITRATE INJ/PF 100 MCG/2 ML AMPUL ONE (15:19)
[2016-12-24] MEDS ORDERED: GLUCAGON,HUMAN RECOMB 1 MG INJ ONE (15:20)
[2016-12-24] MEDS ORDERED: EPINEPHRINE INJ 1 MG/10 ML DISP.SYRIN ONE (15:20)
[2016-12-24] MEDS ORDERED: FLUMAZENIL INJ 0.5 MG/5 ML VIAL ONE (15:20)
[2016-12-24] MEDS: MIDAZOLAM 2 MG/2 ML INJ ONE ×2 (16:27→16:32)
--- NOTE | 2016-12-24 17:08 | Operative Report ---
Operative Report DATE OF SURGERY: 12/24/16 Operative Report: Pre-op diagnosis: History of persistent anastomotic ulcer Post-op diagnosis: Large gastro-jejunal anastomotic ulcer Surgery: Esophagogastroduodenoscopy with biopsy Medications: Versed 4mg Fentanyl 100mcg IV push Tissue removed: Biopsy of the ulcer edge and the antrum Procedure: After informed consent obtained from patient, the throat was sprayed with Hurricane and conscious sedation was achieved. The upper endoscope was inserted into the esophagus under direct vision and advanced into the stomach. Patient has had a previous gastric bypass with a moderate size gastric remnant. The small bowel was examined to about 5 cm and was normal patient tolerated procedure well. Findings Esophagus: Normal Gastric remnant: Mild erythema. Biopsy was taken Anastomotic site: There was a large 2-3 cm ulcer noted on the intestinal side of the anastomosis. The base of the ulcer was white with no evidence for recent bleeding. Biopsy was taken from the edge. The also was larger compared with his endoscopy a few months ago. Plan: Await pathology. We will switch pantoprazole to Nexium 40 mg twice daily. He has been previously treated with omeprazole and lansoprazole twice daily. Repeat EGD in 2-3 months OPERATION: .
--- NOTE | 2016-12-24 17:09 | PDOC DISCHARGE SUMMARY ---
Discharge Summary (SDC) - Discharge Final Diagnosis: Anastomotic ulcer Date of Surgery: 12/24/16 Condition: Stable Treatment or Instructions: Nexium 40 mg twice daily Discharge Diet: As Tolerated Discharge Activity: Activity As Tolerated Report the Following to Your Physician Immediately: Nausea, Vomiting, Increase in Pain, Swelling, Warmth
[2016-12-24 17:42] VITALS: BP 120/79
== END 2016-12-24 17:50 | disposition home or self-care (01) ==
LOC: END 14:20
PROVIDERS: ATTEND Internal Medicine Gastroenterology
PROC: 0DBA8ZX Excision of Jejunum, Via Natural or Artificial Opening Endoscopic, Diagnostic (ICD-10-PCS; 2016-12-24)
PROC: 0DB68ZX Excision of Stomach, Via Natural or Artificial Opening Endoscopic, Diagnostic (ICD-10-PCS; principal; 2016-12-24 15:30)
DX: K28.9 Gastrojejunal ulcer, unspecified as acute or chronic, without hemorrhage or perforation (principal); K29.50 Unspecified chronic gastritis without bleeding
CPT/HCPCS: 43239; 88342 ×2; 88305 ×2; J2250; J0171; J3010; J1610; J2310; J3490

== ENCOUNTER 2017-01-14 15:02 | Day surgery (SDC) | payer MEDICARE ==
[~2017-01-14 15:02] MED LIST: EPINEPHRINE INJ 1 MG/10 ML DISP.SYRIN ONE; FLUMAZENIL INJ 0.5 MG/5 ML VIAL ONE; GLUCAGON,HUMAN RECOMB 1 MG INJ ONE; NALOXONE HCL INJ/PF 0.4 MG/1 ML SDV ONE
[2017-01-14] MEDS: MIDAZOLAM 2 MG/2 ML INJ ONE ×2 (16:39→16:44)
[2017-01-14] MEDS: FENTANYL CITRATE INJ/PF 100 MCG/2 ML AMPUL ONE ×2 (16:42→16:48)
--- NOTE | 2017-01-14 17:35 | Operative Report ---
Operative Report DATE OF SURGERY: 01/14/17 Operative Report: Pre-op diagnosis: Anemia and GI bleed Post-op diagnosis: Transverse colon polyp Surgery: Colonoscopy with polypectomy Medications: Versed 3mg, Fentanyl 150mcg IV push Tissue removed: Procedure: After informed consent obtained from patient, conscious sedation was achieved. A digital rectal examination was performed and this was unremarkable. The colonoscope was inserted into the rectum and advanced to the cecum. The appendiceal orifice and the terminal ileum were both identified. The mucosa was examined into details as the colonoscope was slowly pulled out of the patient. The endoscope was retroflexed in the rectum. Patient tolerated the procedure well. Findings Terminal ileum: Normal Cecum: Normal Ascending colon: Normal Transverse colon: 5 mm polyp removed with the cold snare Descending colon: Normal Sigmoid colon: Normal Rectum: Normal except for internal hemorrhoids Plan: Await pathology. Add Zantac twice daily to his Nexium due to persistent pain OPERATION: .
[2017-01-14 18:08] VITALS: BP 121/75
== END 2017-01-14 17:57 | disposition home or self-care (01) ==
LOC: END 15:02
PROVIDERS: ATTEND Internal Medicine Gastroenterology
PROC: 0DBL8ZX Excision of Transverse Colon, Via Natural or Artificial Opening Endoscopic, Diagnostic (ICD-10-PCS; principal; 2017-01-14 15:30)
DX: D12.3 Benign neoplasm of transverse colon (principal); K62.5 Hemorrhage of anus and rectum; I10 Essential (primary) hypertension; K21.9 Gastro-esophageal reflux disease without esophagitis; Z88.8 Allergy status to other drugs, medicaments and biological substances; Z87.11 Personal history of peptic ulcer disease
CPT/HCPCS: 45385; 88305 ×2; J2250; J3010; J0171; J1610; J2310; J3490

== ENCOUNTER 2017-02-06 13:17 | Outpatient (CLI) | payer MEDICARE ==
[2017-02-06] MEDS ORDERED: FERRIC CARBOXYMALTOSE 750 MG in NORMAL SALINE 250 ML IV PRN (13:48)
[2017-02-06 13:58] VITALS: BP 119/76
== END 2017-02-06 15:28 | disposition home or self-care (01) ==
LOC: II 13:17 → 5TH 13:24 → II 15:28
PROVIDERS: ATTEND Internal Medicine
PROC: 3E033GC Introduction of Other Therapeutic Substance into Peripheral Vein, Percutaneous Approach (ICD-10-PCS; principal; 2017-02-06)
DX: D50.9 Iron deficiency anemia, unspecified (principal); K91.89 Other postprocedural complications and disorders of digestive system; Z98.84 Bariatric surgery status
CPT/HCPCS: 96365; J7050; J1439

== ENCOUNTER 2017-02-13 07:55 | Outpatient (CLI) | payer MEDICARE, MEDICAID ==
[~2017-02-13 07:55] MED LIST changes: -EPINEPHRINE INJ 1 MG/10 ML DISP.SYRIN ONE; +FERRIC CARBOXYMALTOSE 750 MG in NORMAL SALINE 250 ML IV PRN; -FLUMAZENIL INJ 0.5 MG/5 ML VIAL ONE; -GLUCAGON,HUMAN RECOMB 1 MG INJ ONE; -NALOXONE HCL INJ/PF 0.4 MG/1 ML SDV ONE; +NORMAL SALINE 250 ML IV PRN
[2017-02-13 09:05] VITALS: BP 126/90
== END 2017-02-13 09:16 | disposition home or self-care (01) ==
LOC: II 07:55 → 5TH 07:56 → II 09:16
PROVIDERS: ATTEND Internal Medicine
PROC: 3E033GC Introduction of Other Therapeutic Substance into Peripheral Vein, Percutaneous Approach (ICD-10-PCS; principal; 2017-02-13)
DX: D50.9 Iron deficiency anemia, unspecified (principal); K91.89 Other postprocedural complications and disorders of digestive system; Z98.84 Bariatric surgery status
CPT/HCPCS: 96365; J7050; J1439

== ENCOUNTER 2017-03-04 15:00 | Day surgery (SDC) | payer MEDICARE, MEDICAID ==
[~2017-03-04 15:00] MED LIST changes: +EPINEPHRINE INJ 1 MG/10 ML DISP.SYRIN ONE; -FERRIC CARBOXYMALTOSE 750 MG in NORMAL SALINE 250 ML IV PRN; +FLUMAZENIL INJ 0.5 MG/5 ML VIAL ONE; +GLUCAGON,HUMAN RECOMB 1 MG INJ ONE; +NALOXONE HCL INJ/PF 0.4 MG/1 ML SDV ONE; -NORMAL SALINE 250 ML IV PRN
[2017-03-04] MEDS: MIDAZOLAM 2 MG/2 ML INJ ONE ×2 (15:32→15:37)
[2017-03-04] MEDS: FENTANYL CITRATE INJ/PF 100 MCG/2 ML AMPUL ONE ×2 (15:35→15:38)
--- NOTE | 2017-03-04 15:54 | Operative Report ---
Operative Report DATE OF SURGERY: 03/04/17 Operative Report: Pre-op diagnosis: History of persistent anastomotic ulcer Post-op diagnosis: Circumferential large gastrojejunal anastomotic ulcer Surgery: Esophagogastroduodenoscopy with biopsy Medications: Versed 3 mg Fentanyl 100 mcg IV push Tissue removed: Biopsy of ulcer edge for pathology Procedure: After informed consent obtained from patient, the throat was sprayed with Hurricane and conscious sedation was achieved. The upper endoscope was inserted into the esophagus under direct vision and advanced into the gastric remnant and anastomosis. The jejunum was examined and found to be normal. Endoscope was then slowly pulled out of the patient as the mucosa was examined into details. Patient tolerated procedure well. Findings Esophagus: Normal Z-line at: 42 cm Gastric remnants: Normal Gastrojejunal anastomosis: There is a circumferential 3-5 cm ulceration involving the anastomosis more so the intestinal side. The base of the ulcer was white with no evidence for bleeding. Biopsy was taken from the edge of the ulcer. The proximal jejunum was examined and found to be normal. Plan: Await pathology. His pain is better on Nexium and cimetidine twice a day and he will continue with these. We will try and reschedule him with his gastric bypass surgeon done in [place]. He had declined referral for a while. OPERATION: .
[2017-03-04 16:54] VITALS: BP 137/92
== END 2017-03-04 16:55 | disposition home or self-care (01) ==
LOC: END 15:00
PROVIDERS: ATTEND Internal Medicine Gastroenterology
PROC: 0DB68ZX Excision of Stomach, Via Natural or Artificial Opening Endoscopic, Diagnostic (ICD-10-PCS; principal; 2017-03-04 15:30)
DX: K28.9 Gastrojejunal ulcer, unspecified as acute or chronic, without hemorrhage or perforation (principal); K21.9 Gastro-esophageal reflux disease without esophagitis; K25.9 Gastric ulcer, unspecified as acute or chronic, without hemorrhage or perforation; I10 Essential (primary) hypertension; E66.3 Overweight; Z88.8 Allergy status to other drugs, medicaments and biological substances; Z79.899 Other long term (current) drug therapy; Z89.511 Acquired absence of right leg below knee; Z68.30 Body mass index [BMI] 30.0-30.9, adult
CPT/HCPCS: 43239; 88305 ×2; J2250; J0171; J3010; J1610; J2310; J3490

== ENCOUNTER 2017-03-26 11:29 | Inpatient (IN) | payer MEDICARE, MEDICAID ==
[2017-03-26] MEDS ORDERED: NORMAL SALINE 1000 ML 1,000 ML IV ONE (12:25)
--- NOTE | 2017-03-26 12:27 | ER Document Report ---
ED Medical Screen (RME) - General Chief Complaint: Near Syncope Stated Complaint: PASSED OUT Time Seen by Provider: 03/26/17 12:25 Mode of Arrival: Wheelchair Information source: Patient Notes: Patient states that approximately 4 5 months ago he was admitted to the hospital and had received 4 units of blood. He states that they were not able to determine why he became anemic. He states that initially he thought he may be having bleeding ulcers but after they scoped him there was no bleeding ulcers present. He states today began to feel very lightheaded and passed out twice. He states when he passed out the second time he landed on cement and hurt his left knee and left forearm. He denies being on any blood thinners. TRAVEL OUTSIDE OF THE [place] IN LAST 30 DAYS: No - Related Data Allergies/Adverse Reactions: aripiprazole [From [facility]] Adverse Reaction (Severe, Verified 03/26/17 11:35) "uncontrollable muscle tremors" Past Medical History - Social History Frequency of alcohol use: None Drug Abuse: None - Past Medical History Cardiac Medical History: Reports: Hx Hypertension Denies: Hx Coronary Artery Disease, Hx Heart Attack, Hx Heart Murmur Pulmonary Medical History: Denies: Hx Asthma, Hx Bronchitis, Hx COPD, Hx Pneumonia Neurological Medical History: Denies: Hx Cerebrovascular Accident, Hx Seizures Endocrine Medical History: Reports: Hx Diabetes Mellitus Type 2 - Since gastric bypass has been able to stop all medications Renal/ Medical History: Reports: Hx Kidney Stones - LEFT , "passed" multiple, ESWL x 2, "laser" surgery x 1. Denies: Hx Peritoneal Dialysis GI Medical History: Reports: Hx Gastroesophageal Reflux Disease, Hx Ulcer - 2 ulcers. Denies: Hx Pancreatitis Musculoskeltal Medical History: Reports Hx Arthritis Skin Medical History: Reports Hx MRSA Psychiatric Medical History: Reports: Hx Bipolar Disorder, Hx Depression Traumatic Medical History: Reports: Hx Fractures - RT ankle 2010 Infectious Medical History: Past Surgical History: Reports: Hx Abdominal Surgery - Repair of complications from gastric bypass, Hx Appendectomy - 1975, Hx Bowel Surgery - bowel perforation 09/26/2015, May 2016, Hx Gastric Bypass Surgery - 02/19/13, Hx Orthopedic Surgery - Right below-knee amputation, Hx Tonsillectomy - 1978 - Immunizations Immunizations up to date: Yes Hx Diphtheria, Pertussis, Tetanus Vaccination: Yes Influenza Administration Date for 12/2016 - 05/2017 Season: 01/02/16 Physical Exam - Vital signs Vitals: Temp Pulse Resp BP Pulse Ox 98.0 F 99 17 88/62 L 95 03/26/17 11:41 03/26/17 11:41 03/26/17 11:41 03/26/17 11:41 03/26/17 11:41 Course - Vital Signs Vital signs: Temp Pulse Resp BP Pulse Ox 98.0 F 99 17 96/77 L 95 03/26/17 11:41 03/26/17 11:41 03/26/17 11:41 03/26/17 12:21 03/26/17 11:41
[2017-03-26] MEDS ORDERED: ONDANSETRON HCL INJ/PF 4 MG/2 ML SDV IV ONE (12:31)
--- NOTE | 2017-03-26 13:03 | RADIOLOGY REPORT (SQ) ---
EXAM DESCRIPTION: FOREARM LEFT COMPLETED DATE/TIME: 03/26/2017 12:49 pm REASON FOR STUDY: Fall/pain COMPARISON: 12/18/2016. NUMBER OF VIEWS: Two views. TECHNIQUE: Two radiographic images acquired of the left forearm, including elbow and wrist in at [address] one projection. LIMITATIONS: None. FINDINGS: MINERALIZATION: Normal. BONES: No acute fracture. No worrisome bone lesions. SOFT TISSUES: No obvious swelling or foreign body. OTHER: No other significant finding. IMPRESSION: NEGATIVE STUDY OF THE LEFT FOREARM. NO RADIOGRAPHIC EVIDENCE OF ACUTE INJURY. TECHNICAL DOCUMENTATION: JOB ID: [id number] [employer]- All Rights Reserved
[2017-03-26 13:40] LABS: ABSOLUTE EOSINOPHILS # (AUTO) 0.2 10^3/uL (0.0-0.6); ABSOLUTE LYMPHOCYTES (AUTO) 1.4 10^3/uL (0.5-4.7); ABSOLUTE MONOCYTES (AUTO) 0.8 10^3/uL (0.1-1.4); ABSOLUTE NEUT (AUTO) 6.2 10^3/uL (1.7-8.2); BASOPHILS % (AUTO) 0.3 % (0-2); EOSINOPHILS % (AUTO) 1.9 % (0-6); HEMOGLOBIN 13.5 g/dL (13.5-17.0); LYMPHOCYTES % (AUTO) 16.7 % (13-45); MEAN CORPUSCULAR HEMOGLOBIN 24.8 pg (27.0-33.4); MEAN CORPUSCULAR HGB CONC 33.8 g/dL (32.0-36.0); MEAN CORPUSCULAR VOLUME 73 fl (80-97); MONOCYTES % (AUTO) 9.2 % (3-13); PLATELET COUNT 377 10^3/uL (150-450); RED BLOOD COUNT 5.44 10^6/uL (4.35-5.55); RED CELL DISTRIBUTION WIDTH 21.1 % (11.5-14.0); SEGMENTED NEUTROPHILS % (AUTO) 71.9 % (42-78); TOTAL CELLS COUNTED % (AUTO) 100 %; WHITE BLOOD COUNT 8.6 10^3/uL (4.0-10.5)
[2017-03-26 13:52] LABS: ALANINE AMINOTRANSFERASE 33 U/L (21-72); ALBUMIN 4.3 g/dL (3.5-5.0); ALKALINE PHOSPHATASE 104 U/L (38-126); ANION GAP 10 (5-19); ASPARTATE AMINO TRANSFERASE 22 U/L (17-59); BILIRUBIN,DIRECT 0.2 mg/dL (0.0-0.4); BILIRUBIN,TOTAL 0.4 mg/dL (0.2-1.3); BLOOD UREA NITROGEN 5 mg/dL (7-20); CARBON DIOXIDE 27 mmol/L (22-30); CHLORIDE 96 mmol/L (98-107); GLUCOSE 65 mg/dL (75-110); POTASSIUM 4.6 mmol/L (3.6-5.0); SODIUM 132.9 mmol/L (137-145); TOTAL PROTEIN 7.3 g/dL (6.3-8.2)
[2017-03-26] MEDS ORDERED: DEXTROSE 5%-1/2 NORMAL SALINE 500 ML IV ONE (15:40)
--- NOTE | 2017-03-26 15:47 | ER Document Report ---
ED Syncope and Near Syncope - General Chief Complaint: Near Syncope Stated Complaint: PASSED OUT Time Seen by Provider: 03/26/17 12:25 Mode of Arrival: Wheelchair Notes: 51-year-old male had a syncopal episode 2 today. Has a history of GI bleed. Followed by Dr. Rios. Denies any chest pain. States he did hit his head on the right side and his left wrist and left knee hurt. States that he felt like he was about to black out and did. TRAVEL OUTSIDE OF THE [place] IN LAST 30 DAYS: No - HPI Patient complains to provider of: Fainting Symptoms prior to episode: None, Lightheaded Quality of pain: Dull Severity: Moderate Pain Level: 2 Context: Lost consciousness - Related Data Allergies/Adverse Reactions: aripiprazole [From [facility]] Adverse Reaction (Severe, Verified 03/26/17 11:35) "uncontrollable muscle tremors" Past Medical History - General Information source: Patient - Social History Smoking Status: Unknown if Ever Smoked Chew tobacco use (# tins/day): No Frequency of alcohol use: None Drug Abuse: None Family History: Reviewed & Not Pertinent, CAD, Hypertension, Other - ulcers father and sister Patient has suicidal ideation: No Patient has homicidal ideation: No - Past Medical History Cardiac Medical History: Reports: Hx Hypertension Denies: Hx Coronary Artery Disease, Hx Heart Attack, Hx Heart Murmur Pulmonary Medical History: Denies: Hx Asthma, Hx Bronchitis, Hx COPD, Hx Pneumonia Neurological Medical History: Denies: Hx Cerebrovascular Accident, Hx Seizures Endocrine Medical History: Reports: Hx Diabetes Mellitus Type 2 - Since gastric bypass has been able to stop all medications Renal/ Medical History: Reports: Hx Kidney Stones - LEFT , "passed" multiple, ESWL x 2, "laser" surgery x 1. Denies: Hx Peritoneal Dialysis GI Medical History: Reports: Hx Gastroesophageal Reflux Disease, Hx Ulcer - 2 ulcers. Denies: Hx Pancreatitis Musculoskeltal Medical History: Reports Hx Arthritis Skin Medical History: Reports Hx MRSA Psychiatric Medical History: Reports: Hx Bipolar Disorder, Hx Depression Traumatic Medical History: Reports: Hx Fractures - RT ankle 2010 Infectious Medical History: Past Surgical History: Reports: Hx Abdominal Surgery - Repair of complications from gastric bypass, Hx Appendectomy - 1975, Hx Bowel Surgery - bowel perforation 09/26/2015, May 2016, Hx Gastric Bypass Surgery - 02/19/13, Hx Orthopedic Surgery - Right below-knee amputation, Hx Tonsillectomy - 1978 - Immunizations Immunizations up to date: Yes Hx Diphtheria, Pertussis, Tetanus Vaccination: Yes Hx Pneumococcal Vaccination: 03/03/11 Review of Systems - Review of Systems Constitutional: Malaise, Weakness. denies: Fever EENT: denies: Blurred vision, Double vision, Sinus pressure, Mouth pain, Mouth swelling Cardiovascular: Syncope, Dizziness, Lightheaded. denies: Dyspnea Gastrointestinal: Abdominal pain. denies: Diarrhea, Nausea, Vomiting, Constipation Genitourinary: denies: Burning, Dysuria, Discharge Musculoskeletal: Other - Left forearm/wrist pain, left knee contusion with pain.. denies: Back pain, Gout Skin: Other - Duration to the left knee. denies: Change in color, Dryness, Lesions Hematologic/Lymphatic: Anemia. denies: Blood clots, Easy bleeding, Easy bruising Neurological/Psychological: denies: Dementia, Depression, Anxiety, Weakness Physical Exam - Vital signs Vitals: Temp Pulse Resp BP Pulse Ox 98.0 F 99 17 88/62 L 95 03/26/17 11:41 03/26/17 11:41 03/26/17 11:41 03/26/17 11:41 03/26/17 11:41 Interpretation: Normal - General General appearance: Appears well, Alert - HEENT Head: Normocephalic, Atraumatic Eyes: Normal Pupils: PERRL - Respiratory Respiratory status: No respiratory distress Chest status: Nontender Breath sounds: Normal Chest palpation: Normal - Cardiovascular Rhythm: Regular Heart sounds: Normal auscultation Murmur: No - Abdominal Inspection: Normal Distension: No distension Bowel sounds: Normal Tenderness: Nontender Organomegaly: No organomegaly - Back Back: Normal, Nontender - Extremities General upper extremity: Normal inspection, Tender, Normal color, Normal ROM, Normal temperature, Other - There is tenderness to palpation to the left wrist. General lower extremity: Normal color, Normal ROM, Normal temperature, Normal weight bearing, Other - There is absent below the knee on the right with right lower extremity prosthetic. There is an abrasion to the left knee. Tenderness to palpation at the patella.. No: Lilly's sign Shoulder: Normal, Nontender - Neurological Neuro grossly intact: Yes Cognition: Normal Orientation: AAOx4 [place] Coma Scale Eye Opening: Spontaneous [place] Coma Scale Verbal: Oriented [place] Coma Scale Motor: Obeys Commands [place] Coma Scale Total: 15 Speech: Normal Motor strength normal: LUE, RUE, LLE, RLE Sensory: Normal - Psychological Associated symptoms: Normal affect, Normal mood - Skin Skin Temperature: Warm Skin Moisture: Dry Skin Color: Other Course - Re-evaluation Re-evalutation: 03/26/17 16:42 he with syncopal episode. Has recent history of GI bleeding. Will order blood 2. Occult blood stool. Head CT, x-ray wrist and knee and reassess. If in the event this is not a anemic type issue patient should be admitted for cardiac evaluation. Will consult with his regular doctor for admission shortly. 03/26/17 16:42 With a little hypoglycemia. Occult blood was negative. Will allow patient to eat. Will consult with his hospitalist. Giving D5 half-normal saline at this time. - Vital Signs Vital signs: Temp Pulse Resp BP Pulse Ox 98.0 F 99 20 103/77 99 03/26/17 11:41 03/26/17 11:41 03/26/17 15:01 03/26/17 15:01 03/26/17 15:01 - Laboratory Result Diagrams: 03/26/17 13:20 03/26/17 13:20 Laboratory results interpreted by me: 03/26/17 03/26/17 13:20 13:20 MCV 73 L MCH 24.8 L RDW 21.1 H Sodium 132.9 L Chloride 96 L BUN 5 L Glucose 65 L Discharge - Discharge Clinical Impression: Syncope and collapse Knee contusion Qualifiers: Encounter type: initial encounter Laterality: left Qualified Code(s): S80.02XA - Contusion of left knee, initial encounter Left wrist sprain Qualifiers: Encounter type: initial encounter Qualified Code(s): S63.502A - Unspecified sprain of left wrist, initial encounter Disposition: ADMITTED OBSERVATION Admitting Provider: [facility] Admitted: Telemetry
--- NOTE | 2017-03-26 16:02 | RADIOLOGY REPORT (SQ) ---
EXAM DESCRIPTION: CT HEAD WITHOUT COMPLETED DATE/TIME: 03/26/2017 3:52 pm REASON FOR STUDY: sycope with head injury COMPARISON: 01/13/2016 TECHNIQUE: Axial images acquired through the brain without intravenous contrast. Images reviewed wi th bone, brain and subdural windows. Images stored on PACS. All CT scanners at this facility use dose modulation, iterative reconstruction, and/or weight based d osing when appropriate to reduce radiation dose to as low as reasonably achievable (ALARA). [facility]: Dose Right [facility]: CareDose [facility]: Dose Right [facility]: Teradose 4D [facility]: [employer] RADIATION DOSE: mGy. LIMITATIONS: None. FINDINGS: VENTRICLES: Normal size and contour. CEREBRUM: No masses. No hemorrhage. No midline shift. No evidence for acute infarction. Normal gra y/white matter differentiation. No areas of low density in the white matter. CEREBELLUM: No masses. No hemorrhage. No alteration of density. No evidence for acute infarction. EXTRAAXIAL SPACES: No fluid collections. No masses. ORBITS AND GLOBE: No intra- or extraconal masses. Normal contour of globe without masses. CALVARIUM: No fracture. PARANASAL SINUSES: No fluid or mucosal thickening. SOFT TISSUES: No mass or hematoma. OTHER: No other significant finding. IMPRESSION: NORMAL BRAIN CT WITHOUT CONTRAST. EVIDENCE OF ACUTE STROKE: NO. COMMENT: Quality ID # [id number]: Final reports with documentation of one or more dose reduction techniques (e.g., Automated exposure control, adjustment of the mA and/or kV according to patient size, use of iterative reconstruction technique) TECHNICAL DOCUMENTATION: JOB ID: [id number] 1993 [employer]- All Rights Reserved
--- NOTE | 2017-03-26 16:54 | RADIOLOGY REPORT (SQ) ---
EXAM DESCRIPTION: KNEE LEFT 3 VIEWS COMPLETED DATE/TIME: 03/26/2017 4:01 pm REASON FOR STUDY: pain s/p fall COMPARISON: None. NUMBER OF VIEWS: Three views TECHNIQUE: AP, lateral, and sunrise patella radiographic images acquired of the left knee. LIMITATIONS: None. FINDINGS: MINERALIZATION: Normal. BONES: No acute fracture or dislocation. No worrisome bone lesions. JOINT: Patient is status post right total knee replacement. The prosthesis appears well seated in th e distal femur and proximal tibia in the projections obtained SOFT TISSUES: Soft tissue calcifications are identified in the anterior soft tissues at the level of the distal femur superior to the patella. OTHER: No other significant finding. IMPRESSION: No acute fracture or dislocation. Status post right total knee replacement. Other find ings as noted above TECHNICAL DOCUMENTATION: JOB ID: [id number] [employer] All Rights Reserved
[2017-03-26 17:35] LABS: HEMATOCRIT 36.1 % (37.9-51.0); MEAN CORPUSCULAR HEMOGLOBIN 24.5 pg (27.0-33.4); MEAN CORPUSCULAR HGB CONC 33.2 g/dL (32.0-36.0); MEAN CORPUSCULAR VOLUME 74 fl (80-97); PLATELET COUNT 303 10^3/uL (150-450); WHITE BLOOD COUNT 7.1 10^3/uL (4.0-10.5)
[2017-03-26] MEDS: HYDROMORPHONE HCL INJ/PF 2 MG/ML AMPULE IV PRN ×2 (18:49→23:07)
[2017-03-26] MEDS ORDERED: (PENDING PHARMACY ID) (Escitalopram Oxalate [Lexapro] 40 MG) PO SCH (20:30)
[2017-03-26] MEDS ORDERED: ESCITALOPRAM OXALATE 10 MG TABLET PO ONE (21:00)
[2017-03-26] MEDS ORDERED: ENOXAPARIN SODIUM INJ 40 MG/0.4 ML DISP.SYRIN SUBCUT ONE (21:30)
[2017-03-26] MEDS: TRAZODONE HCL 50 MG TABLET PO SCH (21:39)
[2017-03-26] MEDS: GABAPENTIN 300 MG CAPSULE PO SCH (21:39)
[2017-03-26] MEDS: OLANZAPINE 5 MG TABLET PO SCH (21:39)
[2017-03-26] MEDS: ROPINIROLE HCL 0.25 MG TABLET PO SCH (21:43)
[2017-03-26] MEDS: QUETIAPINE FUMARATE 100 MG TABLET PO SCH (21:43)
[2017-03-26] MEDS ORDERED: (PENDING PHARMACY ID) (Trazodone Hcl [Desyrel] 200 MG) PO SCH (22:00)
[2017-03-26] MEDS ORDERED: (PENDING PHARMACY ID) (Quetiapine Fumarate [Seroquel] 600 MG) PO SCH (22:00)
[2017-03-26] MEDS ORDERED: OLANZAPINE 40 MG PO SCH (22:00)
[2017-03-27 00:28] LABS: CREATINE KINASE MB < 0.22 ng/mL (<4.55); TROPONIN I < 0.012 ng/mL
[2017-03-27] MEDS: HYDROMORPHONE HCL INJ/PF 2 MG/ML AMPULE IV PRN ×5 (03:12→19:36)
[2017-03-27 06:09] LABS: ABSOLUTE EOSINOPHILS # (AUTO) 0.3 10^3/uL (0.0-0.6); ABSOLUTE LYMPHOCYTES (AUTO) 2.1 10^3/uL (0.5-4.7); ABSOLUTE MONOCYTES (AUTO) 0.9 10^3/uL (0.1-1.4); BASOPHILS % (AUTO) 0.4 % (0-2); EOSINOPHILS % (AUTO) 3.2 % (0-6); HEMATOCRIT 37.8 % (37.9-51.0); HEMOGLOBIN 12.7 g/dL (13.5-17.0); LYMPHOCYTES % (AUTO) 25.4 % (13-45); MEAN CORPUSCULAR HEMOGLOBIN 24.8 pg (27.0-33.4); MEAN CORPUSCULAR HGB CONC 33.5 g/dL (32.0-36.0); MEAN CORPUSCULAR VOLUME 74 fl (80-97); MONOCYTES % (AUTO) 10.8 % (3-13); PLATELET COUNT 312 10^3/uL (150-450); RED BLOOD COUNT 5.11 10^6/uL (4.35-5.55); RED CELL DISTRIBUTION WIDTH 21.2 % (11.5-14.0); SEGMENTED NEUTROPHILS % (AUTO) 60.2 % (42-78); TOTAL CELLS COUNTED % (AUTO) 100 %; WHITE BLOOD COUNT 8.2 10^3/uL (4.0-10.5)
[2017-03-27 06:45] LABS: CREATINE KINASE MB < 0.22 ng/mL (<4.55); TROPONIN I < 0.012 ng/mL
[2017-03-27] MEDS: GABAPENTIN 300 MG CAPSULE PO SCH ×3 (06:54→21:57)
[2017-03-27] MEDS: ENOXAPARIN SODIUM INJ 40 MG/0.4 ML DISP.SYRIN SUBCUT SCH (11:08)
[2017-03-27] MEDS: ROPINIROLE HCL 0.25 MG TABLET PO SCH ×4 (11:09→21:57)
[2017-03-27] MEDS: ESCITALOPRAM OXALATE 10 MG TABLET PO SCH (11:09)
--- NOTE | 2017-03-27 12:04 | EKG REPORT ---
SEVERITY:- ABNORMAL ECG - SINUS RHYTHM FIRST DEGREE AV BLOCK : Confirmed by: Ashley Castellanos 27-Mar-2017 12:04:23
[2017-03-27 13:16] LABS: CREATINE KINASE MB < 0.22 ng/mL (<4.55); TROPONIN I < 0.012 ng/mL
[2017-03-27] MEDS: TRAZODONE HCL 50 MG TABLET PO SCH (21:57)
[2017-03-27] MEDS: QUETIAPINE FUMARATE 100 MG TABLET PO SCH (21:57)
[2017-03-27] MEDS: OLANZAPINE 5 MG TABLET PO SCH (21:57)
--- NOTE | 2017-03-27 22:57 | PDOC H&P ---
History of Present Illness Admission Date/PCP: 03/26/17 17:16 History of Present Illness: YESSY ALMODOVAR is a 51 year old male, He has a history of gastric bypass, he came to the emergency room for evaluation of loss of consciousness twice. He had this episode previously, it was felt that severe iron deficiency anemia was probably the etiology of one of the episode he experienced previously when he presented at the time with hemoglobin of 4. In the emergency room he was evaluated there was no apparent explanation for the syncope spell he experienced at home. He recently had upper GI endoscopy on March 04, 2017, it showed a large circumferential 3-5 cm ulceration involving the anastomosis of the gastrojejunal site, the base of the ulcer was white with no evidence for bleeding patient is very anxious and nervous about his recurrent syncope spell, he lives by himself, he believes it is not safe for him to continue to stay by himself Past Medical History Cardiac Medical History: Reports: Hypertension Pulmonary Medical History: Neurological Medical History: Denies: Seizures Endocrine Medical History: Reports: Diabetes Mellitus Type 2 - Since gastric bypass has been able to stop all medications GI Medical History: Reports: Gastroesophageal Reflux Disease Musculoskeltal Medical History: Reports: Arthritis Psychiatric Medical History: Reports: Bipolar Disorder, Depression Hematology: Reports: Anemia Past Surgical History Past Surgical History: Reports: Appendectomy - 1975, Gastric Bypass Surgery - , Orthopedic Surgery - Right below-knee amputation, Tonsillectomy - 1978 Social History Smoking Status: Never Smoker Frequency of Alcohol Use: None Hx Recreational Drug Use: No Drugs: None Hx Prescription Drug Abuse: No - Advance Directive Resuscitation Status: Full Code Family History Family History: Reviewed & Not Pertinent, CAD, Hypertension, Other - ulcers father and sister Parental Family History Reviewed: Yes Children Family History Reviewed: Yes Sibling(s) Family History Reviewed.: Yes Medication/Allergy Home Medications: Escitalopram Oxalate [Lexapro] 40 mg PO DAILY 03/26/17 Gabapentin [Neurontin 300 mg Capsule] 300 mg PO TID 03/26/17 Olanzapine [Zyprexa] 40 mg PO QHS 03/26/17 Quetiapine Fumarate [Seroquel] 600 mg PO QHS 03/26/17 Ropinirole HCl [Requip 0.25 Mg Tablet] 0.25 mg PO QID 03/26/17 Trazodone HCl [Desyrel] 200 mg PO QHS 03/26/17 Allergies/Adverse Reactions: aripiprazole [From [facility]] Adverse Reaction (Severe, Verified 03/26/17 11:35) "uncontrollable muscle tremors" Review of Systems Constitutional: ABSENT: chills, fever(s), headache(s), weight gain, weight loss Eyes: ABSENT: visual disturbances Ears: ABSENT: hearing changes Cardiovascular: ABSENT: chest pain, dyspnea on exertion, edema, orthropnea, palpitations Respiratory: ABSENT: cough, hemoptysis Gastrointestinal: PRESENT: abdominal pain Genitourinary: ABSENT: dysuria, hematuria Musculoskeletal: ABSENT: joint swelling Integumentary: ABSENT: rash, wounds Neurological: ABSENT: abnormal gait, abnormal speech, confusion, dizziness, focal weakness, syncope Psychiatric: ABSENT: anxiety, depression, homidical ideation, suicidal ideation Endocrine: ABSENT: cold intolerance, heat intolerance, menstrual abnormalities, polydipsia, polyuria Hematologic/Lymphatic: ABSENT: easy bleeding, easy bruising, lymphadenopathy Physical Exam Vital Signs: Temp Pulse Resp BP Pulse Ox 98.4 F 106 H 16 122/85 97 03/27/17 20:07 03/27/17 20:07 03/27/17 20:07 03/27/17 20:07 03/27/17 20:07 Intake & Output 03/26/17 03/27/17 03/28/17 06:59 06:59 06:59 Intake Total 1277 Output Total 1999 1024 Balance -1999 252 Weight 88.4 kg General appearance: PRESENT: no acute distress Head exam: PRESENT: atraumatic, normocephalic Eye exam: PRESENT: conjunctiva pink, EOMI, PERRLA Ear exam: PRESENT: normal external ear exam Mouth exam: PRESENT: moist, tongue midline Neck exam: PRESENT: full ROM Respiratory exam: PRESENT: clear to auscultation jorge Cardiovascular exam: PRESENT: RRR, +S1, +S2 Pulses: PRESENT: normal dorsalis pedis pul, +2 pedal pulses bilateral Vascular exam: PRESENT: normal capillary refill GI/Abdominal exam: PRESENT: normal bowel sounds, soft Rectal exam: PRESENT: deferred Neurological exam: PRESENT: alert, awake, oriented to person, oriented to place , oriented to time, oriented to situation, CN II-XII grossly intact Psychiatric exam: PRESENT: appropriate affect, normal mood Skin exam: PRESENT: dry, intact, warm Results Laboratory Results: 03/27/17 05:30 03/27/17 05:30 WBC 8.2 RBC 5.11 Hgb 12.7 L Hct 37.8 L MCV 74 L MCH 24.8 L MCHC 33.5 RDW 21.2 H Plt Count 312 Seg Neutrophils % 60.2 Lymphocytes % 25.4 Monocytes % 10.8 Eosinophils % 3.2 Basophils % 0.4 Absolute Neutrophils 5.0 Absolute Lymphocytes 2.1 Absolute Monocytes 0.9 Absolute Eosinophils 0.3 Absolute Basophils 0.0 03/26/17 03/26/17 03/26/17 17:25 23:30 23:30 Creatine Kinase 30 L CK-MB (CK-2) < 0.22 Troponin I < 0.012 < 0.012 03/27/17 03/27/17 03/27/17 05:30 05:30 12:33 Creatine Kinase 27 L 27 L CK-MB (CK-2) < 0.22 Troponin I < 0.012 03/27/17 12:33 Creatine Kinase CK-MB (CK-2) < 0.22 Troponin I < 0.012 Impressions: Forearm X-Ray 03/26/17 12:27 IMPRESSION: NEGATIVE STUDY OF THE LEFT FOREARM. NO RADIOGRAPHIC EVIDENCE OF ACUTE INJURY. Knee X-Ray 03/26/17 15:38 IMPRESSION: No acute fracture or dislocation. Status post right total knee replacement. Other findings as noted above Head CT 03/26/17 15:40 IMPRESSION: NORMAL BRAIN CT WITHOUT CONTRAST. EVIDENCE OF ACUTE STROKE: NO. Assessment & Plan - Diagnosis (1) Syncope Qualifiers: Syncope type: unspecified Qualified Code(s): R55 - Syncope and collapse Is this a current diagnosis for this admission?: Yes Plan: Patient is admitted for observation, 2D echo will be ordered (2) Gastrojejunal ulcer Is this a current diagnosis for this admission?: Yes
[2017-03-28] MEDS: GABAPENTIN 300 MG CAPSULE PO SCH ×3 (06:02→21:04)
[2017-03-28 07:24] LABS: ABSOLUTE EOSINOPHILS # (AUTO) 0.2 10^3/uL (0.0-0.6); ABSOLUTE LYMPHOCYTES (AUTO) 1.7 10^3/uL (0.5-4.7); ABSOLUTE MONOCYTES (AUTO) 1.3 10^3/uL (0.1-1.4); ABSOLUTE NEUT (AUTO) 6.4 10^3/uL (1.7-8.2); BASOPHILS % (AUTO) 0.2 % (0-2); EOSINOPHILS % (AUTO) 2.4 % (0-6); HEMATOCRIT 39.1 % (37.9-51.0); LYMPHOCYTES % (AUTO) 17.8 % (13-45); MEAN CORPUSCULAR HEMOGLOBIN 24.8 pg (27.0-33.4); MEAN CORPUSCULAR HGB CONC 33.3 g/dL (32.0-36.0); MEAN CORPUSCULAR VOLUME 74 fl (80-97); MONOCYTES % (AUTO) 13.4 % (3-13); PLATELET COUNT 307 10^3/uL (150-450); RED BLOOD COUNT 5.25 10^6/uL (4.35-5.55); RED CELL DISTRIBUTION WIDTH 21.2 % (11.5-14.0); SEGMENTED NEUTROPHILS % (AUTO) 66.2 % (42-78); TOTAL CELLS COUNTED % (AUTO) 100 %; WHITE BLOOD COUNT 9.7 10^3/uL (4.0-10.5)
[2017-03-28] MEDS: HYDROMORPHONE HCL INJ/PF 2 MG/ML AMPULE IV PRN ×4 (08:09→21:04)
[2017-03-28] MEDS: ENOXAPARIN SODIUM INJ 40 MG/0.4 ML DISP.SYRIN SUBCUT SCH (10:05)
[2017-03-28] MEDS: ESCITALOPRAM OXALATE 10 MG TABLET PO SCH (10:07)
[2017-03-28] MEDS: ROPINIROLE HCL 0.25 MG TABLET PO SCH ×4 (10:10→21:04)
[2017-03-28] MEDS: CYCLOBENZAPRINE HCL 10 MG TABLET PO PRN (14:21)
--- NOTE | 2017-03-28 19:47 | XCELERA REPORT ---
[address] [address] Transthoracic Echocardiogram Report Name: YESSY ALMODOVAR Age: 51 yrs Gender: Male : 1965 Patient Status: Inpatient Patient Location: [address] [place] [address] Study Date: 03/28/2017 11:17 AM Height: 76 in Weight: 194 lb BSA: 2.2 m2 Procedure: A complete two-dimensional transthoracic echocardiogram was performed (2D, M-mode, spectral and color flow Doppler). The study was technically difficult with many images being suboptimal in quality. Reason For Study: syncope Ordering Physician: EMRYL ORNELAS Performed By: Tali Garza Interpretation Summary The study was technically difficult with many images being suboptimal in quality. The left ventricular ejection fraction is normal. Doppler measurements suggest pseudonormalized left ventricular relaxation, which is associated with grade II/IV or mild to moderate diastolic dysfunction There is mild concentric left ventricular hypertrophy. The left ventricle is grossly normal size. Not all wall segments were well visualized. The right ventricular systolic function is normal. The right atrium is normal. The left atrial size is normal. There is no mitral regurgitation noted. There is no mitral valve stenosis. There is no aortic valve stenosis No aortic regurgitation is present. There is no tricuspid stenosis. No tricuspid regurgitation. The aortic root is not well visualized. The inferior vena cava was not well visualized There is no pericardial effusion. MMode/2D Measurements & Calculations RVDd: 2.6 cm LVIDd: 4.1 cm FS: 31.5 % Ao root diam: 3.5 cm IVSd: 1.2 cm LVIDs: 2.8 cm EDV(Teich): 75.4 ml LVPWd: 1.2 cm ESV(Teich): 30.3 ml Ao root area: 9.8 cm2 EF(Teich): 59.8 % LA dimension: 2.6 cm LVOT diam: 2.4 cm LVOT area: 4.6 cm2 Doppler Measurements & Calculations MV E max dinesh: MV P1/2t max dinesh: Ao V2 max: LV V1 max P.9 cm/sec 57.6 cm/sec 107.6 cm/sec 3.0 mmHg MV A max dinesh: MV P1/2t: 63.7 msec Ao max PG: LV V1 max: 75.1 cm/sec MVA(P1/2t): 3.5 cm2 4.6 mmHg 86.4 cm/sec MV E/A: 0.76 MV dec slope: SUN(V,D): 3.7 cm2 264.9 cm/sec2 PA V2 max: TR max dinesh: 94.3 cm/sec 177.1 cm/sec PA max PG: TR max P.6 mmHg 3.6 mmHg Left Ventricle The left ventricle is grossly normal size. There is mild concentric left ventricular hypertrophy. The left ventricular ejection fraction is normal. Doppler measurements suggest pseudonormalized left ventricular relaxation, which is associated with grade II/IV or mild to moderate diastolic dysfunction. Not all wall segments were well visualized. Right Ventricle The right ventricle is normal in size, thickness and function. There is normal right ventricular wall thickness. The right ventricular systolic function is normal. Atria The right atrium is normal. The left atrial size is normal. Interarterial septum not well visualized and not well dopplered. Cannot comment on ASD/PFO presence. Mitral Valve The mitral valve is grossly normal. There is no mitral valve stenosis. There is no mitral regurgitation noted. Aortic Valve The aortic valve is normal in structure and functions normally. There is no aortic valve stenosis. No aortic regurgitation is present. Tricuspid Valve The tricuspid valve is not well visualized secondary to technical limitations. There is no tricuspid stenosis. No tricuspid regurgitation. Pulmonic Valve The pulmonic valve is not well visualized. Great Vessels The aortic root is not well visualized. The inferior vena cava was not well visualized. Effusions There is no pericardial effusion. : MERYL ORNELAS > Ashley Castellanos
[2017-03-28] MEDS: QUETIAPINE FUMARATE 100 MG TABLET PO SCH (21:04)
[2017-03-28] MEDS: OLANZAPINE 5 MG TABLET PO SCH (21:04)
[2017-03-28] MEDS: TRAZODONE HCL 50 MG TABLET PO SCH (21:04)
--- NOTE | 2017-03-28 22:13 | PDOC PROGRESS REPORT ---
Subjective Progress Note for:: 03/28/17 Subjective:: Patient was seen by the bedside he wants to be transferred to assisted living facility on this admission because he is afraid to stay by himself, the 2D echo was reviewed though it was technically difficult study overall there is no abnormal echo finding to explain his frequent syncopal spells Reason For Visit: SYNCOPE Physical Exam Vital Signs: Temp Pulse Resp BP Pulse Ox 98.3 F 87 16 132/86 H 96 03/28/17 20:15 03/28/17 20:15 03/28/17 20:15 03/28/17 20:15 03/28/17 20:15 Intake & Output 03/27/17 03/28/17 03/29/17 06:59 06:59 06:59 Intake Total 1517 1260 Output Total 1999 1325 1875 Balance -1999 192 -615 Weight 88.4 kg 88.9 kg General appearance: PRESENT: no acute distress, well-developed, well-nourished Head exam: PRESENT: atraumatic, normocephalic Eye exam: PRESENT: conjunctiva pink, EOMI, PERRLA Ear exam: PRESENT: normal external ear exam Mouth exam: PRESENT: moist, tongue midline Neck exam: PRESENT: full ROM Respiratory exam: PRESENT: clear to auscultation jorge Cardiovascular exam: PRESENT: RRR, +S1, +S2 Vascular exam: PRESENT: normal capillary refill GI/Abdominal exam: PRESENT: normal bowel sounds, soft Rectal exam: PRESENT: deferred Neurological exam: PRESENT: alert Psychiatric exam: PRESENT: appropriate affect, normal mood Skin exam: PRESENT: dry, intact, warm. ABSENT: cyanosis, rash Results Laboratory Results: 03/28/17 06:22 03/28/17 06:22 WBC 9.7 RBC 5.25 Hgb 13.0 L Hct 39.1 MCV 74 L MCH 24.8 L MCHC 33.3 RDW 21.2 H Plt Count 307 Seg Neutrophils % 66.2 Lymphocytes % 17.8 Monocytes % 13.4 H Eosinophils % 2.4 Basophils % 0.2 Absolute Neutrophils 6.4 Absolute Lymphocytes 1.7 Absolute Monocytes 1.3 Absolute Eosinophils 0.2 Absolute Basophils 0.0 03/26/17 03/26/17 03/26/17 17:25 23:30 23:30 Creatine Kinase 30 L CK-MB (CK-2) < 0.22 Troponin I < 0.012 < 0.012 03/27/17 03/27/17 03/27/17 05:30 05:30 12:33 Creatine Kinase 27 L 27 L CK-MB (CK-2) < 0.22 Troponin I < 0.012 03/27/17 12:33 Creatine Kinase CK-MB (CK-2) < 0.22 Troponin I < 0.012 Impressions: Forearm X-Ray 03/26/17 12:27 IMPRESSION: NEGATIVE STUDY OF THE LEFT FOREARM. NO RADIOGRAPHIC EVIDENCE OF ACUTE INJURY. Knee X-Ray 03/26/17 15:38 IMPRESSION: No acute fracture or dislocation. Status post right total knee replacement. Other findings as noted above Head CT 03/26/17 15:40 IMPRESSION: NORMAL BRAIN CT WITHOUT CONTRAST. EVIDENCE OF ACUTE STROKE: NO. Assessment & Plan - Diagnosis (1) Syncope Qualifiers: Syncope type: unspecified Qualified Code(s): R55 - Syncope and collapse Is this a current diagnosis for this admission?: Yes (2) Gastrojejunal ulcer Is this a current diagnosis for this admission?: Yes
[2017-03-29 05:24] LABS: ABSOLUTE EOSINOPHILS # (AUTO) 0.3 10^3/uL (0.0-0.6); ABSOLUTE LYMPHOCYTES (AUTO) 2.1 10^3/uL (0.5-4.7); ABSOLUTE MONOCYTES (AUTO) 1.1 10^3/uL (0.1-1.4); ABSOLUTE NEUT (AUTO) 4.9 10^3/uL (1.7-8.2); BASOPHILS % (AUTO) 0.4 % (0-2); EOSINOPHILS % (AUTO) 3.7 % (0-6); HEMOGLOBIN 13.3 g/dL (13.5-17.0); MEAN CORPUSCULAR HEMOGLOBIN 24.6 pg (27.0-33.4); MEAN CORPUSCULAR HGB CONC 33.3 g/dL (32.0-36.0); MEAN CORPUSCULAR VOLUME 74 fl (80-97); MONOCYTES % (AUTO) 13.1 % (3-13); PLATELET COUNT 319 10^3/uL (150-450); RED BLOOD COUNT 5.42 10^6/uL (4.35-5.55); RED CELL DISTRIBUTION WIDTH 21.3 % (11.5-14.0); SEGMENTED NEUTROPHILS % (AUTO) 57.8 % (42-78); TOTAL CELLS COUNTED % (AUTO) 100 %; WHITE BLOOD COUNT 8.4 10^3/uL (4.0-10.5)
[2017-03-29] MEDS: CYCLOBENZAPRINE HCL 10 MG TABLET PO PRN ×2 (06:30→14:45)
[2017-03-29] MEDS: GABAPENTIN 300 MG CAPSULE PO SCH ×3 (06:30→21:09)
[2017-03-29] MEDS: HYDROMORPHONE HCL INJ/PF 2 MG/ML AMPULE IV PRN ×4 (06:33→18:42)
[2017-03-29] MEDS: ENOXAPARIN SODIUM INJ 40 MG/0.4 ML DISP.SYRIN SUBCUT SCH (09:21)
[2017-03-29] MEDS: ROPINIROLE HCL 0.25 MG TABLET PO SCH ×4 (09:22→21:08)
[2017-03-29] MEDS: ESCITALOPRAM OXALATE 10 MG TABLET PO SCH (09:22)
[2017-03-29] MEDS ORDERED: ONDANSETRON HCL INJ/PF 4 MG/2 ML SDV IV PRN (12:15)
[2017-03-29] MEDS ORDERED: ONDANSETRON HCL INJ/PF 4 MG/2 ML SDV ONE (12:35)
[2017-03-29] MEDS: DOCUSATE SODIUM 100 MG CAPSULE PO SCH (17:57)
[2017-03-29] MEDS: SILVER SULFADIAZINE 1% CREAM 50 GM TP SCH (17:58)
[2017-03-29] MEDS: OLANZAPINE 5 MG TABLET PO SCH (21:06)
[2017-03-29] MEDS: FAMOTIDINE 20 MG TABLET PO SCH (21:07)
[2017-03-29] MEDS: QUETIAPINE FUMARATE 100 MG TABLET PO SCH (21:08)
[2017-03-29] MEDS: TRAZODONE HCL 50 MG TABLET PO SCH (21:08)
[2017-03-30] MEDS: CYCLOBENZAPRINE HCL 10 MG TABLET PO PRN ×3 (03:33→20:11)
[2017-03-30] MEDS: HYDROMORPHONE HCL INJ/PF 2 MG/ML AMPULE IV PRN ×5 (03:39→20:11)
[2017-03-30] MEDS: LANSOPRAZOLE 30 MG TAB.RAP.DR PO SCH (05:53)
[2017-03-30] MEDS: GABAPENTIN 300 MG CAPSULE PO SCH ×3 (05:53→21:07)
[2017-03-30] MEDS: ROPINIROLE HCL 0.25 MG TABLET PO SCH ×4 (09:29→21:06)
[2017-03-30] MEDS: DOCUSATE SODIUM 100 MG CAPSULE PO SCH ×2 (09:29→17:03)
[2017-03-30] MEDS: ESCITALOPRAM OXALATE 10 MG TABLET PO SCH (09:29)
[2017-03-30] MEDS: ENOXAPARIN SODIUM INJ 40 MG/0.4 ML DISP.SYRIN SUBCUT SCH (09:30)
[2017-03-30] MEDS: FAMOTIDINE 20 MG TABLET PO SCH ×2 (09:30→21:07)
[2017-03-30] MEDS ORDERED: BISACODYL 10 MG SUPP.RECT PR PRN (11:48)
[2017-03-30] MEDS: SILVER SULFADIAZINE 1% CREAM 50 GM TP SCH ×2 (12:05→17:03)
--- NOTE | 2017-03-30 16:22 | PDOC TRANSFER SUMMARY ---
General - Admit/Disc Date/PCP Admission Date/Primary Care Provider: 03/26/17 17:16 Discharge Date: 03/30/17 - Discharge Diagnosis (1) Syncope Is this a current diagnosis for this admission?: Yes (2) Gastrojejunal ulcer Is this a current diagnosis for this admission?: Yes - Additional Information Resuscitation Status: Full Code Prescriptions: Cimetidine 400 mg PO BID #60 tablet Omeprazole 40 mg PO DAILY #90 capsule. Home Medications: Escitalopram Oxalate [Lexapro] 40 mg PO DAILY 03/26/17 Gabapentin [Neurontin 300 mg Capsule] 300 mg PO TID 03/26/17 Olanzapine [Zyprexa] 40 mg PO QHS 03/26/17 Quetiapine Fumarate [Seroquel] 600 mg PO QHS 03/26/17 Ropinirole HCl [Requip 0.25 mg Tablet] 0.25 mg PO QID 03/26/17 Trazodone HCl [Desyrel] 200 mg PO QHS 03/26/17 Cimetidine 400 mg PO BID #60 tablet 03/30/17 Omeprazole 40 mg PO DAILY #90 capsule. 03/30/17 History of Present Illness Admission Date/PCP: 03/26/17 17:16 History of Present Illness: YESSY ALMODOVAR is a 51 year old male, He has a history of gastric bypass, he came to the emergency room for evaluation of loss of consciousness twice. He had this episode previously, it was felt that severe iron deficiency anemia was probably the etiology of one of the episode he experienced previously when he presented at the time with hemoglobin of 4. In the emergency room he was evaluated there was no apparent explanation for the syncope spell he experienced at home. He recently had upper GI endoscopy on March 04, 2017, it showed a large circumferential 3-5 cm ulceration involving the anastomosis of the gastrojejunal site, the base of the ulcer was white with no evidence for bleeding patient is very anxious and nervous about his recurrent syncope spell, he lives by himself, he believes it is not safe for him to continue to stay by himself Hospital Course Hospital Course: Patient was admitted for the management of repeated/recurrent syncope in the setting of a large gastrojejunal ulcer at the anastomotic site of gastric bypass. He will , need revision of this procedure, a 2D echo was done, it showed for the most part normal ejection fraction of left ventricle, no valvular heart disease patient said is not able to stay alone by himself any longer, [facility] stay before Physical Exam Vital Signs: Temp Pulse Resp BP Pulse Ox 97.2 F 92 18 107/68 99 03/30/17 11:05 03/30/17 11:05 03/30/17 11:05 03/30/17 11:05 03/30/17 11:05 Intake & Output 03/29/17 03/30/17 03/31/17 06:59 06:59 06:59 Intake Total 1660 2070 Output Total 2375 2300 Balance -715 -230 Weight 88.9 kg 88.9 kg General appearance: PRESENT: no acute distress Head exam: PRESENT: atraumatic, normocephalic Eye exam: PRESENT: PERRLA Respiratory exam: PRESENT: clear to auscultation jorge Cardiovascular exam: PRESENT: RRR, +S1, +S2 Vascular exam: PRESENT: normal capillary refill GI/Abdominal exam: PRESENT: normal bowel sounds, soft Rectal exam: PRESENT: deferred Extremities exam: PRESENT: full ROM Neurological exam: PRESENT: alert Psychiatric exam: PRESENT: appropriate affect, normal mood Skin exam: PRESENT: dry, intact, warm Results Laboratory Results: 03/29/17 04:54 03/26/17 03/26/17 03/26/17 17:25 23:30 23:30 Creatine Kinase 30 L CK-MB (CK-2) < 0.22 Troponin I < 0.012 < 0.012 03/27/17 03/27/17 03/27/17 05:30 05:30 12:33 Creatine Kinase 27 L 27 L CK-MB (CK-2) < 0.22 Troponin I < 0.012 03/27/17 12:33 Creatine Kinase CK-MB (CK-2) < 0.22 Troponin I < 0.012 Impressions: Forearm X-Ray 03/26/17 12:27 IMPRESSION: NEGATIVE STUDY OF THE LEFT FOREARM. NO RADIOGRAPHIC EVIDENCE OF ACUTE INJURY. Knee X-Ray 03/26/17 15:38 IMPRESSION: No acute fracture or dislocation. Status post right total knee replacement. Other findings as noted above Head CT 03/26/17 15:40 IMPRESSION: NORMAL BRAIN CT WITHOUT CONTRAST. EVIDENCE OF ACUTE STROKE: NO.
[2017-03-30] MEDS: OLANZAPINE 5 MG TABLET PO SCH (21:03)
[2017-03-30] MEDS: TRAZODONE HCL 50 MG TABLET PO SCH (21:05)
[2017-03-30] MEDS: QUETIAPINE FUMARATE 100 MG TABLET PO SCH (21:06)
[2017-03-31] MEDS: HYDROMORPHONE HCL INJ/PF 2 MG/ML AMPULE IV PRN ×4 (02:51→14:58)
[2017-03-31] MEDS: GABAPENTIN 300 MG CAPSULE PO SCH ×2 (06:45→13:14)
[2017-03-31] MEDS: LANSOPRAZOLE 30 MG TAB.RAP.DR PO SCH (06:45)
[2017-03-31] MEDS: CYCLOBENZAPRINE HCL 10 MG TABLET PO PRN (06:46)
[2017-03-31] MEDS: DOCUSATE SODIUM 100 MG CAPSULE PO SCH (09:17)
[2017-03-31] MEDS: ESCITALOPRAM OXALATE 10 MG TABLET PO SCH (09:17)
[2017-03-31] MEDS: ENOXAPARIN SODIUM INJ 40 MG/0.4 ML DISP.SYRIN SUBCUT SCH (09:17)
[2017-03-31] MEDS: ROPINIROLE HCL 0.25 MG TABLET PO SCH ×2 (09:18→13:14)
[2017-03-31] MEDS: FAMOTIDINE 20 MG TABLET PO SCH (09:18)
[2017-03-31] MEDS: SILVER SULFADIAZINE 1% CREAM 50 GM TP SCH (09:31)
[2017-03-31 16:19] VITALS: BP 116/76
== END 2017-03-31 16:20 | disposition home health service (06) | DRG 312 ==
LOC: ER 11:29 → INTOOBSV 17:16 → EH 17:16 → 5 03-27 02:56 → OBSVTOIN 03-28 13:56
PROVIDERS: ADMIT Internal Medicine; ATTEND Internal Medicine
DX: R55 Syncope and collapse (principal); I10 Essential (primary) hypertension; K25.9 Gastric ulcer, unspecified as acute or chronic, without hemorrhage or perforation; E11.9 Type 2 diabetes mellitus without complications; K21.9 Gastro-esophageal reflux disease without esophagitis; M19.90 Unspecified osteoarthritis, unspecified site; F31.9 Bipolar disorder, unspecified; Z79.899 Other long term (current) drug therapy; Z89.511 Acquired absence of right leg below knee; Z98.84 Bariatric surgery status; Z88.8 Allergy status to other drugs, medicaments and biological substances
CPT/HCPCS: 36415; 70450; 80053; 82272; 82550; 82553; 84484; 85025; 85027; 86850; 86900; 86901; 93005; 93010; 93306; 99284; G0378; J1170; J1650; J2405; J3490; J7030

== ENCOUNTER 2017-09-22 07:18 | Emergency (ER) | payer MEDICARE, MEDICAID ==
[2017-09-22] MEDS ORDERED: FENTANYL CITRATE INJ/PF 100 MCG/2 ML AMPUL IV ONE ×2 (08:04→10:35)
[2017-09-22] MEDS ORDERED: ONDANSETRON HCL INJ/PF 4 MG/2 ML SDV IV ONE (08:04)
[2017-09-22] MEDS ORDERED: NORMAL SALINE 1000 ML 1,000 ML IV PRN (08:04)
[2017-09-22] MEDS ORDERED: NORMAL SALINE 1000 ML 1,000 ML IV ONE (08:04)
--- NOTE | 2017-09-22 08:13 | ER Document Report ---
ED General - General Chief Complaint: Fall Stated Complaint: FALL Time Seen by Provider: 09/22/17 07:45 Mode of Arrival: Ambulatory Notes: Chief complaint: Syncope History of complain:( obtained from----patient) 52 years old male stays early this morning he got up to stand felt lightheaded dizzy felt like the whole room was spinning and passed out. Got up from the floor. Past briefly. During this time he hurt his left knee as well as upper back. Complaining of generalized pain. Denies any head injury or headache now. Denies any focal weakness numbness tingling sensation. Denies any injury to the upper limbs. Lower back. Denies any injury to the hips. He has right below knee amputation. He has been mild to protimes evaluated in the ED and hospital for multiple similar events. He states that he was treated with Dilaudid and Percocet. For a month he has not been taking any narcotics. Only taking ibuprofen. He is not taking any blood pressure medicines. Denies any ringing sensation in the Onset: As above sudden Duration: Just prior to arrival Severity: Severe Quality: Sharp Context: Dizzy Exacerbating factor and relieving factors: Change of position REVIEW OF SYSTEMS: CONSTITUTIONAL : Denies fever, chills, or sweats. Denies recent illness. EENT: Denies eye, ear, throat, or mouth pain or symptoms. Denies nasal or sinus congestion or discharge. Denies throat, tongue, or mouth swelling or difficulty swallowing. CARDIOVASCULAR: Denies chest pain. Denies palpitations or racing or irregular heart beat. Denies ankle edema. RESPIRATORY: Denies cough, cold, or chest congestion. Denies shortness of breath, difficulty breathing, or wheezing. GASTROINTESTINAL: Denies distention. Denies nausea, vomiting, or diarrhea. Denies blood in vomitus, stools, or per rectum. Denies black, tarry stools. Denies constipation. GENITOURINARY: Denies difficulty urinating, painful urination, burning, frequency, blood in urine, or discharge. FEMALE GENITOURINARY: Denies vaginal bleeding, heavy or abnormal periods, irregular periods. Denies vaginal discharge or odor. MUSCULOSKELETAL: Denies back or neck pain or stiffness. Denies joint pain or swelling. SKIN: Denies rash, lesions or sores. HEMATOLOGIC : Denies easy bruising or bleeding. LYMPHATIC: Denies swollen, enlarged glands. NEUROLOGICAL: Denies confusion or altered mental status. Denies passing out or loss of consciousness. Denies dizziness or lightheadedness. Denies headache. Denies weakness or paralysis or loss of use of either side. Denies problems with gait or speech. Denies sensory loss, numbness, or tingling. Denies seizures. PSYCHIATRIC: Denies anxiety or stress. Denies depression, suicidal ideation, or homicidal ideation. ALL OTHER SYSTEMS REVIEWED AND NEGATIVE. PHYSICAL EXAMINATION: GENERAL: Well-appearing, well-nourished and in no acute distress. Not seems to be in any acute distress HEAD: Atraumatic, normocephalic. EYES: Pupils equal round and reactive to light, extraocular movements intact, conjunctiva are normal. ENT: Nares patent, oropharynx clear without exudates. Moist mucous membranes. NECK: Normal range of motion, supple without lymphadenopathy LUNGS: Breath sounds clear to auscultation bilaterally and equal. No wheezes rales or rhonchi. HEART: Regular rate and rhythm without murmurs ABDOMEN: Soft, nontender, nondistended abdomen. No guarding, no rebound. No masses appreciated. Examination of genitals-deferred Musculoskeletal: Normal range of motion for right shoulder left shoulder right hip left hip. Left knee. But noted minor abrasions over the left knee. Right lower leg below-knee amputation Also paraspinal muscular tenderness over the upper thoracic vertebra region. No point tenderness or vertebral tenderness. , no pitting or edema. No cyanosis. NEUROLOGICAL: Cranial nerves grossly intact. Normal speech, normal gait. Normal sensory, motor exams PSYCH: Normal mood, normal affect. SKIN: Warm, Dry, normal turgor, no rashes or lesions noted. Dictation was performed using [employer] voice recognition software TRAVEL OUTSIDE OF THE [place] IN LAST 30 DAYS: No - HPI Onset: Just prior to arrival Onset/Duration: Sudden Notes: Dictated - Related Data Allergies/Adverse Reactions: aripiprazole [From [facility]] Adverse Reaction (Severe, Verified 03/26/17 11:35) "uncontrollable muscle tremors" Past Medical History - Social History Smoking Status: Never Smoker Chew tobacco use (# tins/day): No Frequency of alcohol use: None Drug Abuse: None Family History: Reviewed & Not Pertinent, CAD, Hypertension, Other - ulcers father and sister Patient has suicidal ideation: No Patient has homicidal ideation: No - Past Medical History Cardiac Medical History: Reports: Hx Hypertension Denies: Hx Coronary Artery Disease, Hx Heart Attack, Hx Heart Murmur Pulmonary Medical History: Denies: Hx Asthma, Hx Bronchitis, Hx COPD, Hx Pneumonia Neurological Medical History: Denies: Hx Cerebrovascular Accident, Hx Seizures Endocrine Medical History: Reports: Hx Diabetes Mellitus Type 2 - Since gastric bypass has been able to stop all medications Renal/ Medical History: Reports: Hx Kidney Stones. Denies: Hx Peritoneal Dialysis GI Medical History: Reports: Hx Gastroesophageal Reflux Disease, Hx Ulcer - 4x. Denies: Hx Pancreatitis Musculoskeletal Medical History: Reports Hx Arthritis Skin Medical History: Reports Hx MRSA Psychiatric Medical History: Reports: Hx Bipolar Disorder, Hx Depression Traumatic Medical History: Reports: Hx Fractures - RT ankle 2010 Infectious Medical History: Past Surgical History: Reports: Hx Abdominal Surgery - Repair of complications from gastric bypass, Hx Appendectomy - 1975, Hx Bowel Surgery - bowel perforation 09/26/2015, May 2016, Hx Gastric Bypass Surgery - 02/19/13, Hx Orthopedic Surgery - Right below-knee amputation, Hx Tonsillectomy - 1978 - Immunizations Immunizations up to date: Yes Hx Diphtheria, Pertussis, Tetanus Vaccination: Yes Hx Pneumococcal Vaccination: 03/03/11 Review of Systems - Review of Systems Notes: Dictated Physical Exam - Notes Notes: Dictated Course - Re-evaluation Re-evalutation: 09/22/17 10:36 Patient requested Dilaudid Patient was given fentanyl 100 mg 2 My opinion I do not see him in any acute pain or discomfort he is laying down on the bed comfortably but asking for pain medication. No signs of any distress. - Laboratory Result Diagrams: 09/22/17 08:53 09/22/17 08:53 Laboratory results interpreted by me: 09/22/17 09/22/17 08:53 08:53 Hgb 12.5 L Hct 35.5 L RDW 16.8 H BUN 6 L - Diagnostic Test Radiology reviewed: Reports reviewed - CT of the head came back negative, reported by radiologist Left knee shows no major injuries. According to the radiologist Discharge - Discharge Clinical Impression: Chronic pain syndrome Benign paroxysmal positional vertigo Qualifiers: Laterality: bilateral Qualified Code(s): H81.13 - Benign paroxysmal vertigo, bilateral Knee osteoarthritis Qualifiers: Osteoarthritis type: unspecified Laterality: left Qualified Code(s): M17.12 - Unilateral primary osteoarthritis, left knee Condition: Fair Instructions: Vertigo ([facility]), Suspected Internal Knee Injury ([facility]) Prescriptions: Tramadol HCl [Ultram] 50 mg PO TID #14 tablet
--- NOTE | 2017-09-22 08:48 | RADIOLOGY REPORT (SQ) ---
EXAM DESCRIPTION: CT HEAD WITHOUT COMPLETED DATE/TIME: 09/22/2017 8:39 am REASON FOR STUDY: Syncope COMPARISON: None. TECHNIQUE: Axial images acquired through the brain without intravenous contrast. Images reviewed wi th bone, brain and subdural windows. Additional sagittal and coronal reconstructions were generated. Images stored on PACS. All CT scanners at this facility use dose modulation, iterative reconstruction, and/or weight based d osing when appropriate to reduce radiation dose to as low as reasonably achievable (ALARA). [facility]: Dose Right [facility]: CareDose [facility]: Dose Right [facility]: Teradose 4D [facility]: Outsmart RADIATION DOSE: CT Rad equipment meets quality standard of care and radiation dose reduction techniq ues were employed. CTDIvol: 53.2 mGy. DLP: 1097 mGy-cm. mGy. LIMITATIONS: None. FINDINGS: VENTRICLES: Normal size and contour. CEREBRUM: No masses. No hemorrhage. No midline shift. No evidence for acute infarction. Normal gra y/white matter differentiation. No areas of low density in the white matter. CEREBELLUM: No masses. No hemorrhage. No alteration of density. No evidence for acute infarction. EXTRAAXIAL SPACES: No fluid collections. No masses. ORBITS AND GLOBE: No intra- or extraconal masses. Normal contour of globe without masses. CALVARIUM: No fracture. PARANASAL SINUSES: No fluid or mucosal thickening. SOFT TISSUES: No mass or hematoma. OTHER: No other significant finding. IMPRESSION: NORMAL BRAIN CT WITHOUT CONTRAST. EVIDENCE OF ACUTE STROKE: NO. COMMENT: Quality ID # [id number]: Final reports with documentation of one or more dose reduction techniques (e.g., Automated exposure control, adjustment of the mA and/or kV according to patient size, use of iterative reconstruction technique) TECHNICAL DOCUMENTATION: JOB ID: [id number] [employer]- All Rights Reserved Reading location - IP/workstation name: [email or web address]
--- NOTE | 2017-09-22 08:57 | RADIOLOGY REPORT (SQ) ---
EXAM DESCRIPTION: KNEE LEFT 4 VIEW COMPLETED DATE/TIME: 09/22/2017 8:42 am REASON FOR STUDY: Injury COMPARISON: 03/26/2017 NUMBER OF VIEWS: Four views. TECHNIQUE: AP, lateral, and both oblique radiographic images acquired of the left knee. LIMITATIONS: None. FINDINGS: MINERALIZATION: Normal. BONES: Total left knee replacement. No radiographic evidence of loosening or infection. No acute f racture or dislocation. JOINT: No effusion. SOFT TISSUES: Stable well-defined ossific densities in the soft tissues in the suprapatellar region. OTHER: No other significant finding. IMPRESSION: 1 No significant interval changes since the prior examination dated 03/26/2017. Prior to ignacio left knee replacement. 2 No acute osseous finding. TECHNICAL DOCUMENTATION: JOB ID: [id number] [employer]- All Rights Reserved Reading location - IP/workstation name: [email or web address]
[2017-09-22 09:11] LABS: ABSOLUTE EOSINOPHILS # (AUTO) 0.2 10^3/uL (0.0-0.6); ABSOLUTE LYMPHOCYTES (AUTO) 1.3 10^3/uL (0.5-4.7); ABSOLUTE MONOCYTES (AUTO) 0.6 10^3/uL (0.1-1.4); ABSOLUTE NEUT (AUTO) 3.9 10^3/uL (1.7-8.2); BASOPHILS % (AUTO) 0.5 % (0-2); EOSINOPHILS % (AUTO) 3.8 % (0-6); HEMATOCRIT 35.5 % (37.9-51.0); HEMOGLOBIN 12.5 g/dL (13.5-17.0); MEAN CORPUSCULAR HEMOGLOBIN 28.9 pg (27.0-33.4); MEAN CORPUSCULAR HGB CONC 35.4 g/dL (32.0-36.0); MEAN CORPUSCULAR VOLUME 82 fl (80-97); MONOCYTES % (AUTO) 9.6 % (3-13); PLATELET COUNT 233 10^3/uL (150-450); RED BLOOD COUNT 4.35 10^6/uL (4.35-5.55); RED CELL DISTRIBUTION WIDTH 16.8 % (11.5-14.0); SEGMENTED NEUTROPHILS % (AUTO) 65.1 % (42-78); TOTAL CELLS COUNTED % (AUTO) 100 %
[2017-09-22 09:34] LABS: ALANINE AMINOTRANSFERASE 23 U/L (21-72); ALBUMIN 3.9 g/dL (3.5-5.0); ALKALINE PHOSPHATASE 90 U/L (38-126); ANION GAP 11 (5-19); ASPARTATE AMINO TRANSFERASE 20 U/L (17-59); BILIRUBIN,DIRECT 0.3 mg/dL (0.0-0.4); BILIRUBIN,TOTAL 0.7 mg/dL (0.2-1.3); BLOOD UREA NITROGEN 6 mg/dL (7-20); CALCIUM 9.4 mg/dL (8.4-10.2); CARBON DIOXIDE 23 mmol/L (22-30); CHLORIDE 104 mmol/L (98-107); CREATINE KINASE 94 U/L (55-170); GLUCOSE 83 mg/dL (75-110); POTASSIUM 4.9 mmol/L (3.6-5.0); SODIUM 138.4 mmol/L (137-145); TOTAL PROTEIN 6.8 g/dL (6.3-8.2)
[2017-09-22 09:44] LABS: CREATINE KINASE MB 1.66 ng/mL (<4.55)
[2017-09-22 09:46] LABS: TROPONIN I < 0.012 ng/mL
[2017-09-22 09:50] LABS: APPEARANCE,URINE CLEAR; BILIRUBIN,URINE NEGATIVE (NEGATIVE); COLOR,URINE YELLOW; GLUCOSE, URINE NEGATIVE (NEGATIVE); KETONES,URINE NEGATIVE (NEGATIVE); LEUKOCYTE ESTERASE,URINE NEGATIVE (NEGATIVE); NITRITE,URINE NEGATIVE (NEGATIVE); PROTEIN,URINE NEGATIVE (NEGATIVE); URINE SPECIFIC GRAVITY 1.006; UROBILINOGEN,URINE NEGATIVE mg/dL (<2.0)
[2017-09-22] MEDS ORDERED: OXYCODONE-ACETAMINOPHEN 5-325 MG TABLET PO ONE (10:02)
[2017-09-22 10:13] LABS: URINE AMPHETAMINES SCREEN NEGATIVE; URINE BARBITURATES SCREEN NEGATIVE; URINE BENZODIAZEPINES SCREEN NEGATIVE; URINE COCAINE SCREEN NEGATIVE; URINE MARIJUANA (THC) SCREEN NEGATIVE; URINE METHADONE SCREEN NEGATIVE; URINE PHENCYCLIDINE SCREEN NEGATIVE
[2017-09-22 10:48] VITALS: BP 126/87
--- NOTE | 2017-09-22 10:56 | EKG REPORT ---
SEVERITY:- NORMAL ECG - SINUS RHYTHM : Confirmed by: Carley Landon MD 22-Sep-2017 10:55:58
== END 2017-09-22 11:17 | disposition home or self-care (01) ==
LOC: ER 07:18
DX: G89.4 Chronic pain syndrome (principal); Z79.1 Long term (current) use of non-steroidal anti-inflammatories (NSAID); H81.13 Benign paroxysmal vertigo, bilateral; M17.12 Unilateral primary osteoarthritis, left knee; R55 Syncope and collapse; S80.212A Abrasion, left knee, initial encounter; W19.XXXA Unspecified fall, initial encounter; I10 Essential (primary) hypertension; Z89.511 Acquired absence of right leg below knee; Z98.84 Bariatric surgery status; Z86.14 Personal history of Methicillin resistant Staphylococcus aureus infection
CPT/HCPCS: 93005; 99285; 96361; 96374; 96375; 36415; 82553; 82550; 85025; 80053; 81001; 84484; 80307; 73564; 70450; 93010; J3010; A9270; J2405; J7030

== ENCOUNTER 2017-09-23 10:49 | Observation (INO) | payer MEDICARE, MEDICAID ==
--- NOTE | 2017-09-23 11:10 | ER Document Report ---
ED Fall - General Stated Complaint: FALL Time Seen by Provider: 09/23/17 11:03 Information source: Patient Notes: 52-year-old male who presents from the [facility] secondary to a repeat syncopal-like episode. Patient states he was standing up and felt "the room spinning" and lost consciousness. No incontinence. It was an unwitnessed fall. Patient complains of pain only to his mid upper back. He denies any headache, neck pain, shortness of breath, chest pain, abdominal pain, weakness or numbness. Patient was seen here for similar fall yesterday. He has had some persistent left knee pain since the fall. The left knee x-ray was performed yesterday showing no acute fractures. Patient states he had a similar presentation around 6 months ago requiring admission and blood transfusion. Patient has a history of a gastric bypass in 2012 with 4 endoscopies this year. He is followed by gastroenterology at [facility]. Patient has some mild nausea and vomiting at baseline secondary to some outlet obstruction according to the patient's report. Patient denies any abdominal pain. TRAVEL OUTSIDE OF THE [place] IN LAST 30 DAYS: No - HPI Occurred: Other - See above Where: Outdoors Context: Fell from standing Associated symptoms: Lost consciousness Location of injury/pain: Other - See above Quality of pain: Dull Severity: Mild Pain Level: 2 Prehospital interventions: C-collar. No: Backboard - Related data Allergies/Adverse Reactions: aripiprazole [From Abilify] Adverse Reaction (Severe, Verified 03/26/17 11:35) "uncontrollable muscle tremors" Past Medical History - General Information source: Patient - Social History Smoking Status: Unknown if Ever Smoked Cigarette use (# per day): No Chew tobacco use (# tins/day): No Smoking Education Provided: No Frequency of alcohol use: None Family History: Reviewed & Not Pertinent, CAD, Hypertension, Other - ulcers father and sister - Past Medical History Cardiac Medical History: Reports: Hx Hypertension Denies: Hx Coronary Artery Disease, Hx Heart Attack, Hx Heart Murmur Pulmonary Medical History: Denies: Hx Asthma, Hx Bronchitis, Hx COPD, Hx Pneumonia Neurological Medical History: Denies: Hx Cerebrovascular Accident, Hx Seizures Endocrine Medical History: Reports: Hx Diabetes Mellitus Type 2 - Since gastric bypass has been able to stop all medications Renal/ Medical History: Reports: Hx Kidney Stones. Denies: Hx Peritoneal Dialysis GI Medical History: Reports: Hx Gastroesophageal Reflux Disease, Hx Ulcer - 4x. Denies: Hx Pancreatitis Musculoskeletal Medical History: Reports Hx Arthritis Skin Medical History: Reports Hx MRSA Psychiatric Medical History: Reports: Hx Bipolar Disorder, Hx Depression Traumatic Medical History: Reports: Hx Fractures - RT ankle 2011 Infectious Medical History: Past Surgical History: Reports: Hx Abdominal Surgery - Repair of complications from gastric bypass, Hx Appendectomy - 1975, Hx Bowel Surgery - bowel perforation 09/26/2015, May 2016, Hx Gastric Bypass Surgery - 02/19/13, Hx Orthopedic Surgery - Right below-knee amputation, Hx Tonsillectomy - 1978 - Immunizations Immunizations up to date: Yes Hx Diphtheria, Pertussis, Tetanus Vaccination: Yes Hx Pneumococcal Vaccination: 03/03/11 Review of Systems - Review of Systems Constitutional: denies: Fever EENT: denies: Eye discharge, Nose discharge Cardiovascular: Dizziness. denies: Chest pain, Palpitations Respiratory: denies: Short of breath Gastrointestinal: denies: Vomiting Genitourinary: denies: Dysuria Musculoskeletal: denies: Leg swelling Skin: Other - no hives. denies: Rash Neurological/Psychological: Other - no slurred speech -: Yes All other systems reviewed and negative Physical Exam - Vital signs Vitals: Temp Pulse Resp BP Pulse Ox 98.0 F 92 16 129/86 H 94 09/23/17 11:08 09/23/17 11:08 09/23/17 11:08 09/23/17 11:08 09/23/17 11:08 Notes: Reviewed vital signs and nursing note as charted by RN. CONSTITUTIONAL: Alert and oriented and responds appropriately to questions. Well -appearing; well-nourished HEAD: Normocephalic; atraumatic EYES: PERRL; no nystagmus ENT: Normal nose; no rhinorrhea; moist mucous membranes; pharynx without lesions noted NECK: Supple without meningismus; non-tender; no carotid bruit; no cervical lymphadenopathy, no masses CARD: Regular rate and rhythm; no murmurs, no clicks, no rubs, no gallops; symmetric distal pulses RESP: Normal chest excursion without splinting or tachypnea; breath sounds clear and equal bilaterally; no wheezes, no rhonchi, no rales ABD/GI: Normal bowel sounds; non-distended; soft, non-tender, no palpable masses or abdominal bruits present BACK: The back appears normal with some mild tenderness to palpation without any obvious swelling, abrasions, or step-offs of the midthoracic spine, there is no CVA tenderness EXT: Normal ROM in all joints with a right BKA; patient's left knee is in an Mayo bandage with no obvious swelling or deformity noted SKIN: Normal color for age and race; warm; dry; good turgor; capillary refill < 2 seconds; no acute lesions noted NEURO: CN II through XII are intact. Patient has 5 out of 5 bilateral upper and lower extremity strength with sensation intact to light touch PSYCH: The patient's mood and manner are appropriate. Grooming and personal hygiene are appropriate. Course - Re-evaluation Re-evalutation: 09/23/17 11:12 Given the above history and physical examination we will order cardiac panel, Hemoccult, x-ray of the thoracic spine, place the patient on the monitor and obtain an EKG and orthostatics. Patient has no focal neurological deficits. No nystagmus noted. No carotid bruits or abdominal bruits or masses. Given the lack of any headache, no anticoagulants, no neck pain, I do not believe a CT scan of the head or cervical spine CT is necessary at this time. However, given the nystagmus I will obtain an MRI of the brain. Patient has no gross blood from the rectum and Hemoccult has been sent. 09/23/17 12:01 Hemoglobin is stable. Occult blood is negative. EKG shows a heart of 73, normal sinus rhythm, normal axis, no obvious ST elevation or depression. 09/23/17 12:06 Patient's vital signs are positive with a heart rate of 70 supine to 92 and standing. Liter fluid has been provided. 09/23/17 12:55 Troponin as recorded. Fluids have been provided. Patient will be admitted to the hospital for further evaluation. MRI is pending upon admission. - Vital Signs Vital signs: Temp Pulse Resp BP Pulse Ox 98.0 F 70 16 148/98 H 94 09/23/17 11:08 09/23/17 12:03 09/23/17 11:08 09/23/17 12:03 09/23/17 11:08 - Laboratory Result Diagrams: 09/23/17 11:24 09/23/17 11:24 Laboratory results interpreted by me: 09/23/17 09/23/17 11:24 11:24 RBC 4.28 L Hgb 12.5 L Hct 35.2 L RDW 16.7 H BUN 6 L Discharge - Discharge Clinical Impression: Syncope Qualifiers: Syncope type: unspecified Qualified Code(s): R55 - Syncope and collapse Condition: Fair Disposition: ADMITTED OBSERVATION Admitting Provider: [facility] Unit Admitted: Telemetry Referrals: WILBERT AGUILA PA [Primary Care Provider] - Follow up as needed
[2017-09-23] MEDS ORDERED: MORPHINE SULFATE 10 MG/ML INJ IV ONE ×2 (11:29→16:14)
[2017-09-23 11:43] LABS: ABSOLUTE EOSINOPHILS # (AUTO) 0.4 10^3/uL (0.0-0.6); ABSOLUTE LYMPHOCYTES (AUTO) 1.5 10^3/uL (0.5-4.7); ABSOLUTE MONOCYTES (AUTO) 0.7 10^3/uL (0.1-1.4); ABSOLUTE NEUT (AUTO) 4.5 10^3/uL (1.7-8.2); APPEARANCE,URINE CLEAR; BASOPHILS % (AUTO) 0.4 % (0-2); BILIRUBIN,URINE NEGATIVE (NEGATIVE); COLOR,URINE YELLOW; GLUCOSE, URINE NEGATIVE (NEGATIVE); HEMATOCRIT 35.2 % (37.9-51.0); HEMOGLOBIN 12.5 g/dL (13.5-17.0); KETONES,URINE NEGATIVE (NEGATIVE); LEUKOCYTE ESTERASE,URINE NEGATIVE (NEGATIVE); LYMPHOCYTES % (AUTO) 21.4 % (13-45); MEAN CORPUSCULAR HEMOGLOBIN 29.1 pg (27.0-33.4); MEAN CORPUSCULAR HGB CONC 35.4 g/dL (32.0-36.0); MEAN CORPUSCULAR VOLUME 82 fl (80-97); NITRITE,URINE NEGATIVE (NEGATIVE); PLATELET COUNT 250 10^3/uL (150-450); PROTEIN,URINE NEGATIVE (NEGATIVE); RED BLOOD COUNT 4.28 10^6/uL (4.35-5.55); RED CELL DISTRIBUTION WIDTH 16.7 % (11.5-14.0); SEGMENTED NEUTROPHILS % (AUTO) 63.2 % (42-78); TOTAL CELLS COUNTED % (AUTO) 100 %; URINE SPECIFIC GRAVITY 1.005; UROBILINOGEN,URINE NEGATIVE mg/dL (<2.0); WHITE BLOOD COUNT 7.1 10^3/uL (4.0-10.5)
[2017-09-23 11:46] LABS: INTERNATIONAL RATION (INR) 0.99; PROTHROMBIN TIME 13.6 SEC (11.4-15.4)
[2017-09-23 12:02] LABS: ANION GAP 11 (5-19); BLOOD UREA NITROGEN 6 mg/dL (7-20); CALCIUM 9.2 mg/dL (8.4-10.2); CARBON DIOXIDE 24 mmol/L (22-30); CHLORIDE 105 mmol/L (98-107); GLUCOSE 95 mg/dL (75-110); POTASSIUM 4.3 mmol/L (3.6-5.0)
[2017-09-23] MEDS ORDERED: NORMAL SALINE 1000 ML 1,000 ML IV ONE (12:05)
--- NOTE | 2017-09-23 12:38 | RADIOLOGY REPORT (SQ) ---
EXAM DESCRIPTION: T SPINE AP/LAT COMPLETED DATE/TIME: 09/23/2017 12:01 pm REASON FOR STUDY: 2, fall with back pain COMPARISON: 01/30/2014 NUMBER OF VIEWS: Two views. TECHNIQUE: AP and lateral radiographic images acquired of the thoracic spine. LIMITATIONS: None. FINDINGS: MINERALIZATION: Normal. ALIGNMENT: Mild sigmoid scoliosis. VERTEBRAE: No fracture or bone lesion. Maintained height, normal segmentation. DISCS: Mild degenerative changes. HARDWARE: IVC filter. MEDIASTINUM AND SOFT TISSUES: Normal heart size and aortic contour. No soft tissue abnormality. VISUALIZED LUNG MORAN: Clear. OTHER: No other significant finding. IMPRESSION: No acute findings. TECHNICAL DOCUMENTATION: JOB ID: [id number] [employer]- All Rights Reserved Reading location - IP/workstation name: [email or web address]
[2017-09-23] MEDS ORDERED: LORAZEPAM INJ 2 MG/1 ML VIAL IV ONE (13:59)
--- NOTE | 2017-09-23 15:27 | RADIOLOGY REPORT (SQ) ---
EXAM DESCRIPTION: MRI HEAD WITHOUT COMPLETED DATE/TIME: 09/23/2017 3:02 pm REASON FOR STUDY: 2, vertigo with syncope 2 COMPARISON: None. TECHNIQUE: Multiplanar imaging includes non-contrasted T1, T2, FLAIR, and Diffusion with ADC map seq uences. Images stored on PACS. LIMITATIONS: None. FINDINGS: ANATOMY: No anomalies. Normal vascular flow voids. Pituitary fossa normal. CSF SPACES: Normal in size and contour. No hemorrhage. CEREBRUM: A few high-signal intensity lesions scattered throughout the white matter on FLAIR imaging with distribution suggesting chronic micro-vascular ischemic change. Sulci and gyri normal in size a nd contour. No evidence of hemorrhage, mass or extraaxial fluid collection. POSTERIOR FOSSA: No signal alteration. No hemorrhage. No edema, masses or mass effect. Internal jessi tory canals, cerebello-pontine angles, mastoids normal. DIFFUSION: Negative for acute or sub-acute infarction. ORBITS: No masses. Globes normal. PARANASAL SINUSES: No fluid levels. Mucosa normal. OTHER: No other significant finding. IMPRESSION: MINIMAL MICROVASCULAR ISCHEMIC CHANGE. OTHERWISE NORMAL STUDY. EVIDENCE OF ACUTE STROKE: NO. TECHNICAL DOCUMENTATION: JOB ID: [id number] [employer]- All Rights Reserved Reading location - IP/workstation name: [email or web address]-RR
[2017-09-23] MEDS ORDERED: ONDANSETRON HCL INJ/PF 4 MG/2 ML SDV IV ONE (17:54)
[2017-09-23] MEDS ORDERED: (PENDING PHARMACY ID) (Escitalopram Oxalate [Lexapro] 40 MG) PO SCH (21:45)
[2017-09-23] MEDS ORDERED: ERGOCALCIFEROL (VITAMIN D2) 50000 UNIT (1.25 MG) CAPSULE PO SCH (22:00)
[2017-09-23] MEDS ORDERED: (PENDING PHARMACY ID) (Trazodone Hcl [Desyrel] 200 MG) PO SCH (22:00)
[2017-09-23] MEDS ORDERED: (PENDING PHARMACY ID) (Quetiapine Fumarate [Seroquel] 600 MG) PO SCH (22:00)
[2017-09-23 22:05] LABS: CHOLESTEROL 131.76 mg/dL (0-200); TRIGLYCERIDES 116 mg/dL (<150)
[2017-09-23] MEDS: QUETIAPINE FUMARATE 100 MG TABLET PO SCH (22:11)
[2017-09-23] MEDS: OLANZAPINE 5 MG TABLET PO SCH (22:11)
[2017-09-23] MEDS: TRAZODONE HCL 50 MG TABLET PO SCH (22:11)
[2017-09-23] MEDS: TRAMADOL HCL 50 MG TABLET PO SCH (22:12)
[2017-09-23 22:31] LABS: DIRECT LDL 69 mg/dL (<100)
[2017-09-23 22:38] LABS: CREATINE KINASE MB 0.82 ng/mL (<4.55)
[2017-09-23 22:42] LABS: TROPONIN I < 0.012 ng/mL
--- NOTE | 2017-09-24 00:21 | EKG REPORT ---
SEVERITY:- DEFECTIVE ECG - SINUS RHYTHM INTERCHANGED V2 AND V3 LEADS PROBABLY NORMAL EKG : Confirmed by: Carley Landon MD 24-Sep-2017 00:21:13
[2017-09-24 04:18] LABS: HEMATOCRIT 34.1 % (37.9-51.0); HEMOGLOBIN 12.3 g/dL (13.5-17.0); MEAN CORPUSCULAR HEMOGLOBIN 29.4 pg (27.0-33.4); MEAN CORPUSCULAR HGB CONC 36.2 g/dL (32.0-36.0); MEAN CORPUSCULAR VOLUME 81 fl (80-97); PLATELET COUNT 225 10^3/uL (150-450); RED BLOOD COUNT 4.19 10^6/uL (4.35-5.55); RED CELL DISTRIBUTION WIDTH 16.8 % (11.5-14.0); WHITE BLOOD COUNT 6.2 10^3/uL (4.0-10.5)
[2017-09-24 04:32] LABS: ANION GAP 10 (5-19); BLOOD UREA NITROGEN 5 mg/dL (7-20); CALCIUM 9.3 mg/dL (8.4-10.2); CARBON DIOXIDE 26 mmol/L (22-30); CHLORIDE 105 mmol/L (98-107); CREATINE KINASE 50 U/L (55-170); GLUCOSE 84 mg/dL (75-110); POTASSIUM 4.3 mmol/L (3.6-5.0); SODIUM 140.9 mmol/L (137-145)
[2017-09-24 04:43] LABS: CREATINE KINASE MB 0.69 ng/mL (<4.55)
[2017-09-24 04:49] LABS: TROPONIN I < 0.012 ng/mL
[2017-09-24] MEDS: TRAMADOL HCL 50 MG TABLET PO SCH ×3 (05:39→22:26)
[2017-09-24] MEDS: LANSOPRAZOLE 30 MG TAB.RAP.DR PO SCH (05:40)
[2017-09-24] MEDS ORDERED: TRAMADOL HCL 50 MG TABLET PO SCH (10:00)
[2017-09-24] MEDS: ENOXAPARIN SODIUM INJ 40 MG/0.4 ML DISP.SYRIN SUBCUT SCH (10:43)
[2017-09-24] MEDS: ESCITALOPRAM OXALATE 10 MG TABLET PO SCH (10:44)
[2017-09-24] MEDS: HYDROMORPHONE HCL INJ/PF 2 MG/ML AMPULE IV PRN ×4 (10:44→23:23)
[2017-09-24 10:55] LABS: CREATINE KINASE MB 0.62 ng/mL (<4.55)
[2017-09-24 10:59] LABS: TROPONIN I < 0.012 ng/mL
--- NOTE | 2017-09-24 18:27 | XCELERA REPORT ---
[address] [address] Transthoracic Echocardiogram Report Name: YESSY ALMODOVAR Age: 52 yrs Gender: Male : 1965 Patient Status: Inpatient Patient Location: [address] [place] [address] Study Date: 09/24/2017 03:18 PM Height: 74 in Weight: 200 lb BSA: 2.2 m2 Procedure: A complete two-dimensional transthoracic echocardiogram was performed (2D, M-mode, spectral and color flow Doppler). The study was technically adequate with some images being suboptimal in quality. Reason For Study: SYNCOPE Ordering Physician: MERYL ORNELAS Performed By: Elaine Solomon Interpretation Summary Left ventricular systolic function is borderline reduced. The Ejection Fraction estimate is 50-55% There is borderline concentric left ventricular hypertrophy. The left ventricle is grossly normal size. Doppler measurements suggest impaired left ventricular relaxation, which is associated with grade I/IV or mild diastolic dysfunction Wall motion cannot be accurately commented on, but no definite regional wall motion abnormalities noted. The right ventricular systolic function is normal. The left atrial size is normal. The right atrium is normal in size There is a mild amount of mitral regurgitation There is no mitral valve stenosis. No aortic regurgitation is present. There is no aortic valve stenosis There is a trace to mild amount of tricuspid regurgitation Right ventricular systolic pressure is at the upper limits of normal The aortic root is not well visualized but is probably normal size. The inferior vena cava appeared normal and decreased > 50% with respiration (RAP 5-10 mmHg) Minimal pericardial effusion. MMode/2D Measurements & Calculations RVDd: 3.7 cm LVIDd: 5.0 cm FS: 37.3 % Ao root diam: 3.3 cm IVSd: 0.95 cm LVIDs: 3.2 cm EDV(Teich): 120.4 ml LVPWd: 0.98 cm ESV(Teich): 39.7 ml Ao root area: 8.8 cm2 EF(Teich): 67.0 % Doppler Measurements & Calculations MV E max dinesh: MV dec slope: Ao V2 max: LV V1 max P.9 cm/sec 118.8 cm/sec 3.5 mmHg MV A max dinesh: 434.4 cm/sec2 Ao max PG: LV V1 max: 100.1 cm/sec MV dec time: 5.6 mmHg 93.6 cm/sec MV E/A: 0.80 0.18 sec PA V2 max: PI end-d dinesh: TR max dinesh: 89.5 cm/sec 121.2 cm/sec 228.4 cm/sec PA max P.2 mmHg TR max P.9 mmHg Left Ventricle The left ventricle is grossly normal size. There is borderline concentric left ventricular hypertrophy. Left ventricular systolic function is borderline reduced. The Ejection Fraction estimate is 50-55%. Doppler measurements suggest impaired left ventricular relaxation, which is associated with grade I/IV or mild diastolic dysfunction. Wall motion cannot be accurately commented on, but no definite regional wall motion abnormalities noted. Right Ventricle The right ventricle is grossly normal size. There is normal right ventricular wall thickness. The right ventricular systolic function is normal. Atria The right atrium is normal in size. The left atrial size is normal. Interarterial septum not well visualized and not well dopplered. Cannot comment on ASD/PFO presence. Mitral Valve The mitral valve is grossly normal. There is no mitral valve stenosis. There is a mild amount of mitral regurgitation. Aortic Valve The aortic valve is grossly normal. There is no aortic valve stenosis. No aortic regurgitation is present. Tricuspid Valve The tricuspid valve is not well visualized, but is grossly normal. There is no tricuspid stenosis. There is a trace to mild amount of tricuspid regurgitation. Right ventricular systolic pressure is at the upper limits of normal. Pulmonic Valve The pulmonic valve is not well visualized. Great Vessels The aortic root is not well visualized but is probably normal size. The inferior vena cava appeared normal and decreased > 50% with respiration (RAP 5-10 mmHg). Effusions Minimal pericardial effusion. : MERYL ORNELAS > Yeni Castellanosl
--- NOTE | 2017-09-24 18:40 | PDOC H&P ---
History of Present Illness Admission Date/PCP: 09/23/17 13:13 URSZULA PAYAN History of Present Illness: YESSY ALMODOVAR is a 52 year old male, He came to the emergency room for evaluation of recurrent syncope spell, he said there is antecedent symptoms of spinning sensation of the surrounding with subsequent loss of consciousness. There was no urinary incontinence,, he complained of pain of his upper back, he denies any headache, neck pain, shortness of breath chest pain, abdominal pain. He was in the emergency room the day before for evaluation of similar presentation he has a history of gastric bypass complicated with persistent anastomotic ulcer associated with upper GI bleed he presented 6 months ago with severe anemia associated with loss of consciousness, he was to have revision of the gastric bypass in [place]. He has had multiple endoscopies including colonoscopies and EGD. A 2D echo was done on this admission, it demonstrated ejection fraction of left ventricle 50-55%, there is mild concentric left ventricular hypertrophy Doppler measurements suggest grade 1 diastolic dysfunction. The left and right atria normal size there is no aortic valve stenosis, the right ventricle systolic pressure is normal patient is admitted for observation and evaluation of syncope spells Past Medical History Cardiac Medical History: Reports: Hypertension Pulmonary Medical History: Endocrine Medical History: Reports: Diabetes Mellitus Type 2 - Since gastric bypass has been able to stop all medications GI Medical History: Reports: Gastroesophageal Reflux Disease Musculoskeltal Medical History: Reports: Arthritis Psychiatric Medical History: Reports: Bipolar Disorder, Depression Hematology: Reports: Anemia Past Surgical History Past Surgical History: Reports: Appendectomy - 1975, Gastric Bypass Surgery - , Orthopedic Surgery - Right below-knee amputation, Tonsillectomy - 1978 Social History Smoking Status: Never Smoker Frequency of Alcohol Use: None Hx Recreational Drug Use: No Drugs: None Hx Prescription Drug Abuse: No - Advance Directive Resuscitation Status: Full Code Family History Family History: Reviewed & Not Pertinent, CAD, Hypertension, Other - ulcers father and sister Parental Family History Reviewed: Yes Children Family History Reviewed: Yes Sibling(s) Family History Reviewed.: Yes Medication/Allergy Home Medications: Escitalopram Oxalate [Lexapro] 40 mg PO DAILY 03/26/17 Olanzapine [Zyprexa] 20 mg PO QHS 03/26/17 Quetiapine Fumarate [Seroquel] 600 mg PO QHS 03/26/17 Trazodone HCl [Desyrel] 200 mg PO QHS 03/26/17 Omeprazole 40 mg PO DAILY #90 capsule. 03/30/17 Tramadol HCl [Ultram] 50 mg PO TID #14 tablet 09/22/17 Ergocalciferol (Vitamin D2) [Vitamin D2] 50,000 unit PO Q14D 09/23/17 Linaclotide [Linzess] 290 mcg PO DAILY 09/23/17 Magnesium Hydroxide [Milk of Magnesia 30 ml Udcup] 30 ml PO BIDP PRN 09/23/17 Promethazine HCl [Phenergan 25 mg Tablet] 50 mg PO Q6H 09/23/17 Ranitidine HCl [Zantac 150 mg Tablet] 150 mg PO BID 09/23/17 Sucralfate [Carafate Susp 1 Gm/10 Ml Udcup] 1 gm PO QID 09/23/17 Allergies/Adverse Reactions: aripiprazole [From [facility]] Adverse Reaction (Severe, Verified 03/26/17 11:35) "uncontrollable muscle tremors" Review of Systems Constitutional: ABSENT: chills, fever(s), headache(s), weight gain, weight loss Eyes: ABSENT: visual disturbances Ears: ABSENT: hearing changes Cardiovascular: ABSENT: chest pain, dyspnea on exertion, edema, orthropnea, palpitations Respiratory: ABSENT: cough, hemoptysis Gastrointestinal: ABSENT: abdominal pain, constipation, diarrhea, hematemesis, hematochezia, nausea, vomiting Genitourinary: ABSENT: dysuria, hematuria Musculoskeletal: ABSENT: joint swelling Integumentary: ABSENT: rash, wounds Neurological: PRESENT: syncope. ABSENT: abnormal gait, abnormal speech, confusion, dizziness, focal weakness Psychiatric: ABSENT: anxiety, depression, homidical ideation, suicidal ideation Endocrine: ABSENT: cold intolerance, heat intolerance, menstrual abnormalities, polydipsia, polyuria Hematologic/Lymphatic: ABSENT: easy bleeding, easy bruising, lymphadenopathy Physical Exam Vital Signs: Temp Pulse Resp BP Pulse Ox 98.0 F 66 17 135/84 H 98 09/24/17 15:13 09/24/17 15:13 09/24/17 15:13 09/24/17 15:13 09/24/17 15:13 Intake & Output 09/23/17 09/24/17 09/25/17 06:59 06:59 06:59 Intake Total 1450 Output Total 950 Balance 500 Weight 89.1 kg General appearance: PRESENT: no acute distress, well-developed, well-nourished Head exam: PRESENT: atraumatic, normocephalic Eye exam: PRESENT: conjunctiva pink, EOMI, PERRLA. ABSENT: scleral icterus Ear exam: PRESENT: normal external ear exam Mouth exam: PRESENT: moist, tongue midline Neck exam: PRESENT: full ROM Cardiovascular exam: PRESENT: RRR, +S1, +S2 Pulses: PRESENT: normal dorsalis pedis pul, +2 pedal pulses bilateral Vascular exam: PRESENT: normal capillary refill GI/Abdominal exam: PRESENT: normal bowel sounds, soft Rectal exam: PRESENT: deferred Extremities exam: PRESENT: right BKA Neurological exam: PRESENT: alert, awake, oriented to person, oriented to place , oriented to time, oriented to situation, CN II-XII grossly intact Psychiatric exam: PRESENT: appropriate affect, normal mood Skin exam: PRESENT: dry, intact, warm Results Laboratory Results: 09/24/17 03:55 09/24/17 03:55 09/24/17 09/24/17 09/24/17 03:55 03:55 03:55 WBC 6.2 RBC 4.19 L Hgb 12.3 L Hct 34.1 L MCV 81 MCH 29.4 MCHC 36.2 H RDW 16.8 H Plt Count 225 Sodium 140.9 Potassium 4.3 Chloride 105 Carbon Dioxide 26 Anion Gap 10 BUN 5 L Creatinine 0.62 Est GFR ( Amer) > 60 Est GFR (Non-Af Amer) > 60 Glucose 84 Calcium 9.3 TSH 3.68 09/23/17 09/23/17 09/24/17 22:02 22:02 03:55 Creatine Kinase 55 CK-MB (CK-2) 0.82 0.69 Troponin I < 0.012 < 0.012 09/24/17 09/24/17 09/24/17 03:55 09:58 09:58 Creatine Kinase 50 L 41 L CK-MB (CK-2) 0.62 Troponin I < 0.012 Impressions: Head MRI 09/23/17 11:04 IMPRESSION: MINIMAL MICROVASCULAR ISCHEMIC CHANGE. OTHERWISE NORMAL STUDY. EVIDENCE OF ACUTE STROKE: NO. Thoracic Spine X-Ray 09/23/17 11:05 IMPRESSION: No acute findings. Assessment & Plan - Diagnosis (1) Syncope and collapse Is this a current diagnosis for this admission?: Yes Plan: Patient is admitted for monitoring
[2017-09-24] MEDS: TRAZODONE HCL 50 MG TABLET PO SCH (22:22)
[2017-09-24] MEDS: OLANZAPINE 5 MG TABLET PO SCH (22:23)
[2017-09-24] MEDS: QUETIAPINE FUMARATE 100 MG TABLET PO SCH (22:26)
[2017-09-25] MEDS: TRAMADOL HCL 50 MG TABLET PO SCH ×3 (05:29→21:28)
[2017-09-25] MEDS: LANSOPRAZOLE 30 MG TAB.RAP.DR PO SCH (05:29)
[2017-09-25] MEDS: HYDROMORPHONE HCL INJ/PF 2 MG/ML AMPULE IV PRN ×4 (07:59→20:29)
[2017-09-25] MEDS: ESCITALOPRAM OXALATE 10 MG TABLET PO SCH (10:02)
[2017-09-25] MEDS: ENOXAPARIN SODIUM INJ 40 MG/0.4 ML DISP.SYRIN SUBCUT SCH (10:02)
[2017-09-25] MEDS ORDERED: MECLIZINE HCL 25 MG TABLET PO PRN (20:03)
--- NOTE | 2017-09-25 20:08 | PDOC TRANSFER SUMMARY ---
General - Admit/Disc Date/PCP Admission Date/Primary Care Provider: 09/23/17 13:13 URSZULA PAYAN Discharge Date: 09/25/17 - Discharge Diagnosis (1) Syncope and collapse Is this a current diagnosis for this admission?: Yes (2) Vertigo Is this a current diagnosis for this admission?: Yes - Additional Information Resuscitation Status: Full Code Prescriptions: Meclizine HCl 25 mg PO Q8H PRN #90 tab.chew PRN Reason: Home Medications: Escitalopram Oxalate [Lexapro] 40 mg PO DAILY 03/26/17 Olanzapine [Zyprexa] 20 mg PO QHS 03/26/17 Quetiapine Fumarate [Seroquel] 600 mg PO QHS 03/26/17 Trazodone HCl [Desyrel] 200 mg PO QHS 03/26/17 Omeprazole 40 mg PO DAILY #90 capsule. 03/30/17 Tramadol HCl [Ultram] 50 mg PO TID #14 tablet 09/22/17 Ergocalciferol (Vitamin D2) [Vitamin D2] 50,000 unit PO Q14D 09/23/17 Linaclotide [Linzess] 290 mcg PO DAILY 09/23/17 Magnesium Hydroxide [Milk of Magnesia 30 ml Udcup] 30 ml PO BIDP PRN 09/23/17 Promethazine HCl [Phenergan 25 mg Tablet] 50 mg PO Q6H 09/23/17 Ranitidine HCl [Zantac 150 mg Tablet] 150 mg PO BID 09/23/17 Sucralfate [Carafate Susp 1 gm/10 ml Udcup] 1 gm PO QID 09/23/17 Meclizine HCl 25 mg PO Q8H PRN #90 tab.chew 09/25/17 History of Present Illness Admission Date/PCP: 09/23/17 13:13 URSZULA PAYAN History of Present Illness: YESSY ALMODOVAR is a 52 year old male, He came to the emergency room for evaluation of recurrent syncope spell, he said there is antecedent symptoms of spinning sensation of the surrounding with subsequent loss of consciousness. There was no urinary incontinence,, he complained of pain of his upper back, he denies any headache, neck pain, shortness of breath chest pain, abdominal pain. He was in the emergency room the day before for evaluation of similar presentation he has a history of gastric bypass complicated with persistent anastomotic ulcer associated with upper GI bleed he presented 6 months ago with severe anemia associated with loss of consciousness, he was to have revision of the gastric bypass in [place]. He has had multiple endoscopies including colonoscopies and EGD. A 2D echo was done on this admission, it demonstrated ejection fraction of left ventricle 50-55%, there is mild concentric left ventricular hypertrophy Doppler measurements suggest grade 1 diastolic dysfunction. The left and right atria normal size there is no aortic valve stenosis, the right ventricle systolic pressure is normal patient is admitted for observation and evaluation of syncope [facility] Hospital Course Hospital Course: Patient was admitted for the management of syncope, on direct questioning he stated that he usually he has spinning sensation and then he will lose consciousness suggesting vertigo, central vertigo was suspected MRI brain was done it was negative, 2D echo was done it was normal, did not experience any vertigo during the observation duration Physical Exam Vital Signs: Temp Pulse Resp BP Pulse Ox 98.0 F 89 17 113/77 96 09/25/17 15:16 09/25/17 19:00 09/25/17 15:16 09/25/17 15:16 09/25/17 15:16 Intake & Output 09/24/17 09/25/17 09/26/17 06:59 06:59 06:59 Intake Total 1450 688 780 Output Total 768 152 3629 Balance Weight 89.1 kg 88.6 kg General appearance: PRESENT: no acute distress Eye exam: PRESENT: PERRLA Respiratory exam: PRESENT: clear to auscultation jorge GI/Abdominal exam: PRESENT: soft Neurological exam: PRESENT: alert, CN II-XII grossly intact Results Laboratory Results: 09/24/17 03:55 09/24/17 03:55 09/23/17 09/23/17 09/24/17 22:02 22:02 03:55 Creatine Kinase 55 CK-MB (CK-2) 0.82 0.69 Troponin I < 0.012 < 0.012 09/24/17 09/24/17 09/24/17 03:55 09:58 09:58 Creatine Kinase 50 L 41 L CK-MB (CK-2) 0.62 Troponin I < 0.012 Impressions: Head MRI 09/23/17 11:04 IMPRESSION: MINIMAL MICROVASCULAR ISCHEMIC CHANGE. OTHERWISE NORMAL STUDY. EVIDENCE OF ACUTE STROKE: NO. Thoracic Spine X-Ray 09/23/17 11:05 IMPRESSION: No acute findings. Qualifiers - * PATIENT BEING DISCHARGED WITH ANY OF THE FOLLOWING DIAGNOSIS: No
[2017-09-25] MEDS: QUETIAPINE FUMARATE 100 MG TABLET PO SCH (21:27)
[2017-09-25] MEDS: OLANZAPINE 5 MG TABLET PO SCH (21:27)
[2017-09-25] MEDS: TRAZODONE HCL 50 MG TABLET PO SCH (21:28)
[2017-09-26] MEDS: HYDROMORPHONE HCL INJ/PF 2 MG/ML AMPULE IV PRN ×3 (03:06→11:39)
[2017-09-26] MEDS: LANSOPRAZOLE 30 MG TAB.RAP.DR PO SCH (06:14)
[2017-09-26] MEDS: TRAMADOL HCL 50 MG TABLET PO SCH (06:28)
[2017-09-26] MEDS: ESCITALOPRAM OXALATE 10 MG TABLET PO SCH (11:08)
[2017-09-26] MEDS: ENOXAPARIN SODIUM INJ 40 MG/0.4 ML DISP.SYRIN SUBCUT SCH (11:09)
[2017-09-26 11:59] VITALS: BP 144/88
== END 2017-09-26 12:05 ==
LOC: ER 10:49 → EH 13:13 → 5 21:45
PROVIDERS: ADMIT Internal Medicine; ATTEND Internal Medicine
DX: R55 Syncope and collapse (principal); R42 Dizziness and giddiness; M54.6 Pain in thoracic spine; W19.XXXA Unspecified fall, initial encounter; M25.562 Pain in left knee; R11.2 Nausea with vomiting, unspecified; Z98.84 Bariatric surgery status; Z98.0 Intestinal bypass and anastomosis status; Z90.49 Acquired absence of other specified parts of digestive tract; Z89.511 Acquired absence of right leg below knee; Z82.49 Family history of ischemic heart disease and other diseases of the circulatory system; Z79.899 Other long term (current) drug therapy; Z87.11 Personal history of peptic ulcer disease
CPT/HCPCS: 93005; 96376; 99285; 96361; 96374; 96375; 36415 ×2; 82553 ×2; 82962; 82550 ×2; 84443; 85025; 85027; 85610; 82272; 80048 ×2; 81001; 84484 ×2; 83036; 80061; 93306; 70551; 72070; 93010; G0378 ×4; A9270 ×18; J3490 ×4; J2270; J1650 ×3; J1170 ×3; J2060; J2405; J7030

== ENCOUNTER 2017-09-29 16:14 | Emergency (ER) | payer MEDICARE, MEDICAID ==
--- NOTE | 2017-09-29 16:31 | ER Document Report ---
ED Fall - General Chief Complaint: Fall Stated Complaint: FALL,BODY PAIN Time Seen by Provider: 09/29/17 16:23 Notes: This is a 52-year-old male to the emergency department chief complaint of fall with dizziness. Hit his head. Has a headache. Also complaining of left knee contusion and left knee pain. Patient states that he was just discharged from hospital on Friday for persistent vertigo and dizziness. Had extensive workup performed by Dr. Rios including MRI, head CT, echocardiogram, x-rays. Complaining of pain in his thoracic spine after the fall. Had x-rays at that time which were negative. States that he was having some dizziness and he lost his balance. 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 BKA in 2011. Patient currently on meclizine. Does not think that it is helping. TRAVEL OUTSIDE OF THE [place] IN LAST 30 DAYS: No - HPI Occurred: Just prior to arrival Where: Other [place] Context: Lost balance Associated symptoms: denies: Blood in stool Quality of pain: Dull, Throbbing Severity: Mild Pain Level: 1 - Related data Allergies/Adverse Reactions: aripiprazole [From [employer]] Adverse Reaction (Severe, Verified 03/26/17 11:35) "uncontrollable muscle tremors" Past Medical History - General Information source: Patient - Social History Smoking Status: Smoker,Current Status Unk Cigarette use (# per day): No Frequency of alcohol use: None Drug Abuse: None Lives with: Guardian Family History: Reviewed & Not Pertinent, CAD, Hypertension, Other - ulcers father and sister - Past Medical History Cardiac Medical History: Reports: Hx Hypertension Denies: Hx Coronary Artery Disease, Hx Heart Attack, Hx Heart Murmur Pulmonary Medical History: Denies: Hx Asthma, Hx Bronchitis, Hx COPD, Hx Pneumonia Neurological Medical History: Denies: Hx Cerebrovascular Accident, Hx Seizures Endocrine Medical History: Reports: Hx Diabetes Mellitus Type 2 - Since gastric bypass has been able to stop all medications Renal/ Medical History: Reports: Hx Kidney Stones. Denies: Hx Peritoneal Dialysis GI Medical History: Reports: Hx Gastroesophageal Reflux Disease, Hx Ulcer - 4x. Denies: Hx Pancreatitis Musculoskeletal Medical History: Reports Hx Arthritis Skin Medical History: Reports Hx MRSA Psychiatric Medical History: Reports: Hx Bipolar Disorder, Hx Depression Traumatic Medical History: Reports: Hx Fractures - RT ankle 2010 Infectious Medical History: Past Surgical History: Reports: Hx Abdominal Surgery - Repair of complications from gastric bypass, Hx Appendectomy - 1975, Hx Bowel Surgery - bowel perforation 09/26/2015, May 2016, Hx Gastric Bypass Surgery - 02/19/13, Hx Orthopedic Surgery - Right below-knee amputation, Hx Tonsillectomy - 1978 - Immunizations Immunizations up to date: Yes Hx Diphtheria, Pertussis, Tetanus Vaccination: Yes Hx Pneumococcal Vaccination: 03/03/11 Review of Systems - Review of Systems Constitutional: denies: Fever, Malaise, Weakness EENT: denies: Blurred vision, Difficulty swallowing, Mouth pain Cardiovascular: Lightheaded. denies: Chest pain, Palpitations, Heart racing, Dyspnea, Syncope, Edema Respiratory: denies: Cough, Hurts to breathe, Short of breath, Wheezing Gastrointestinal: denies: Abdominal pain, Diarrhea, Nausea, Vomiting Genitourinary: denies: Burning, Dysuria, Discharge Musculoskeletal: Back pain, Joint pain. denies: Muscle pain, Muscle stiffness, Neck pain, Leg swelling, Ankle swelling Skin: Other - Has an abrasion on the forehead. denies: Dryness, Lesions, Lumps , Rash Hematologic/Lymphatic: denies: Anemia, Blood clots, Easy bleeding, Easy bruising Neurological/Psychological: denies: Confusion, Weakness, Numbness Physical Exam - Vital signs Vitals: Temp Pulse Resp BP Pulse Ox 98.2 F 91 16 131/80 H 96 09/29/17 16:24 09/29/17 16:24 09/29/17 16:24 09/29/17 16:24 09/29/17 16:24 Interpretation: Normal - General General appearance: Appears well, Alert - HEENT Head: Normocephalic, Other - Mild abrasion on the frontal forehead Eyes: Normal Pupils: PERRL Tympanic membrane: Normal Mouth/Lips: Normal Mucous membranes: Normal Neck: Normal, Supple - Respiratory Respiratory status: No respiratory distress Chest status: Nontender Breath sounds: Normal Chest palpation: Normal - Cardiovascular Rhythm: Regular Heart sounds: Normal auscultation Murmur: No - Abdominal Inspection: Normal Distension: No distension Bowel sounds: Normal Tenderness: Nontender Organomegaly: No organomegaly - Back Back: Normal, Nontender - Extremities General upper extremity: Normal inspection, Nontender, Normal color, Normal ROM , Normal temperature General lower extremity: Nontender, Normal color, Normal ROM, Normal temperature , Other - There is a small contusion on the left knee. There is a right BKA. No: Lilly's sign - Neurological Neuro grossly intact: Yes Cognition: Normal Orientation: AAOx4 [place] Coma Scale Eye Opening: Spontaneous [place] Coma Scale Verbal: Oriented [place] Coma Scale Motor: Obeys Commands [place] Coma Scale Total: 15 Speech: Normal Motor strength normal: LUE, RUE, LLE, RLE Sensory: Normal - Psychological Associated symptoms: Normal affect, Normal mood - Skin Skin Temperature: Warm Skin Moisture: Dry Skin Color: Normal Course - Re-evaluation Re-evalutation: 09/29/17 18:09 Patient had a recent workup and everything is unremarkable. Repeat head CT negative. Labs unremarkable. No fractures to the left knee. At this time find nothing compelling to admit the patient for. Patient has vertigo and has one leg so more likely to fall but definitely his symptoms have been worked up fairly comprehensively. Feel comfortable at this time discharging. Patient is made aware to follow-up with his regular doctor soon as possible for repeat evaluation and treatment options.. 09/29/17 18:10 - Vital Signs Vital signs: Temp Pulse Resp BP Pulse Ox 98.2 F 91 16 131/80 H 96 09/29/17 16:24 09/29/17 16:24 09/29/17 16:24 09/29/17 16:24 09/29/17 16:24 - Laboratory Result Diagrams: 09/29/17 16:58 09/29/17 16:58 Laboratory results interpreted by me: 09/29/17 09/29/17 16:58 16:58 WBC 11.1 H RBC 4.14 L Hgb 12.0 L Hct 33.9 L RDW 16.6 H Seg Neutrophils % 78.1 H Lymphocytes % 12.8 L Absolute Neutrophils 8.7 H AST 15 L - EKG Interpretation by Ks EKG shows normal: Sinus rhythm, [place], Intervals, QRS Complexes, ST-T Waves Discharge - Discharge Clinical Impression: Vertigo Contusion of left knee Qualifiers: Encounter type: initial encounter Qualified Code(s): S80.02XA - Contusion of left knee, initial encounter Forehead contusion Qualifiers: Encounter type: initial encounter Qualified Code(s): S00.83XA - Contusion of other part of head, initial encounter Condition: Good Disposition: HOME, SELF-CARE Instructions: Vertigo ([facility]), Head Injury Precautions ([facility]) Referrals: WILBERT AGUILA PA [NO LOCAL MD] - Follow up in 3-5 days
[2017-09-29] MEDS ORDERED: HYDROCODONE/ACETAMINOPHEN 5-325 MG TABLET PO ONE (16:33)
--- NOTE | 2017-09-29 17:00 | RADIOLOGY REPORT (SQ) ---
EXAM DESCRIPTION: KNEE LEFT 2 VIEWS COMPLETED DATE/TIME: 09/29/2017 4:50 pm REASON FOR STUDY: fall, pain COMPARISON: 09/22/2017. NUMBER OF VIEWS: Two views. TECHNIQUE: AP and lateral radiographic images acquired of the left knee. LIMITATIONS: None. FINDINGS: MINERALIZATION: Normal. BONES: Intact knee prosthesis. No acute fracture or dislocation. Again seen are numerous osseous de nsities superior to the patella. No worrisome bone lesions. JOINT: No effusion. SOFT TISSUES: No soft tissue swelling. No radio-opaque foreign body. OTHER: No other significant finding. IMPRESSION: STABLE FINDINGS. INTACT KNEE PROSTHESIS. NO RADIOGRAPHIC EVIDENCE OF ACUTE INJURY. TECHNICAL DOCUMENTATION: JOB ID: [id number] [employer]- All Rights Reserved Reading location - IP/workstation name: [email or web address]
--- NOTE | 2017-09-29 17:23 | RADIOLOGY REPORT (SQ) ---
EXAM DESCRIPTION: CT HEAD WITHOUT COMPLETED DATE/TIME: 09/29/2017 4:49 pm REASON FOR STUDY: fall, loc COMPARISON: MR 09/23/2017 CT 09/22/2017 TECHNIQUE: Axial images acquired through the brain without intravenous contrast. Images reviewed wi th bone, brain and subdural windows. Additional sagittal and coronal reconstructions were generated. Images stored on PACS. All CT scanners at this facility use dose modulation, iterative reconstruction, and/or weight based d osing when appropriate to reduce radiation dose to as low as reasonably achievable (ALARA). [facility]: Dose Right [facility]: CareDose [facility]: Dose Right [facility]: Teradose 4D [facility]: Smart Visualase RADIATION DOSE: CT Rad equipment meets quality standard of care and radiation dose reduction techniq ues were employed. CTDIvol: 53.2 mGy. DLP: 1097 mGy-cm. mGy. LIMITATIONS: None. FINDINGS: VENTRICLES: Normal size and contour. CEREBRUM: No masses. No hemorrhage. No midline shift. No evidence for acute infarction. Normal gra y/white matter differentiation. No areas of low density in the white matter. CEREBELLUM: No masses. No hemorrhage. No alteration of density. No evidence for acute infarction. EXTRAAXIAL SPACES: No fluid collections. No masses. ORBITS AND GLOBE: No intra- or extraconal masses. Normal contour of globe without masses. CALVARIUM: No fracture. PARANASAL SINUSES: No fluid or mucosal thickening. SOFT TISSUES: No mass or hematoma. OTHER: No other significant finding. IMPRESSION: NORMAL BRAIN CT WITHOUT CONTRAST. EVIDENCE OF ACUTE STROKE: NO. COMMENT: Quality ID # [id number]: Final reports with documentation of one or more dose reduction techniques (e.g., Automated exposure control, adjustment of the mA and/or kV according to patient size, use of iterative reconstruction technique) TECHNICAL DOCUMENTATION: JOB ID: [id number] [employer]- All Rights Reserved Reading location - IP/workstation name: [email or web address]
[2017-09-29 17:25] LABS: ABSOLUTE EOSINOPHILS # (AUTO) 0.3 10^3/uL (0.0-0.6); ABSOLUTE LYMPHOCYTES (AUTO) 1.4 10^3/uL (0.5-4.7); ABSOLUTE MONOCYTES (AUTO) 0.7 10^3/uL (0.1-1.4); ABSOLUTE NEUT (AUTO) 8.7 10^3/uL (1.7-8.2); BASOPHILS % (AUTO) 0.4 % (0-2); EOSINOPHILS % (AUTO) 2.4 % (0-6); HEMATOCRIT 33.9 % (37.9-51.0); LYMPHOCYTES % (AUTO) 12.8 % (13-45); MEAN CORPUSCULAR HGB CONC 35.5 g/dL (32.0-36.0); MEAN CORPUSCULAR VOLUME 82 fl (80-97); MONOCYTES % (AUTO) 6.3 % (3-13); PLATELET COUNT 254 10^3/uL (150-450); RED BLOOD COUNT 4.14 10^6/uL (4.35-5.55); RED CELL DISTRIBUTION WIDTH 16.6 % (11.5-14.0); SEGMENTED NEUTROPHILS % (AUTO) 78.1 % (42-78); TOTAL CELLS COUNTED % (AUTO) 100 %; WHITE BLOOD COUNT 11.1 10^3/uL (4.0-10.5)
[2017-09-29 17:41] LABS: ALANINE AMINOTRANSFERASE 27 U/L (21-72); ALBUMIN 3.6 g/dL (3.5-5.0); ALKALINE PHOSPHATASE 99 U/L (38-126); ANION GAP 11 (5-19); ASPARTATE AMINO TRANSFERASE 15 U/L (17-59); BILIRUBIN,DIRECT 0.3 mg/dL (0.0-0.4); BILIRUBIN,TOTAL 0.6 mg/dL (0.2-1.3); BLOOD UREA NITROGEN 12 mg/dL (7-20); CALCIUM 9.3 mg/dL (8.4-10.2); CARBON DIOXIDE 25 mmol/L (22-30); CHLORIDE 104 mmol/L (98-107); GLUCOSE 79 mg/dL (75-110); POTASSIUM 4.6 mmol/L (3.6-5.0); SODIUM 139.8 mmol/L (137-145); TOTAL PROTEIN 6.4 g/dL (6.3-8.2)
--- NOTE | 2017-09-29 17:58 | EKG REPORT ---
SEVERITY:- NORMAL ECG - SINUS RHYTHM : Confirmed by: Ashley Castellanos 29-Sep-2017 17:58:10
[2017-09-29 19:06] VITALS: BP 123/81
== END 2017-09-29 19:35 | disposition home or self-care (01) ==
LOC: ER 16:14
DX: S80.02XA Contusion of left knee, initial encounter (principal); S00.83XA Contusion of other part of head, initial encounter; R51 Headache; M25.562 Pain in left knee; M54.6 Pain in thoracic spine; W19.XXXA Unspecified fall, initial encounter; Y92.199 Unspecified place in other specified residential institution as the place of occurrence of the external cause; R42 Dizziness and giddiness; Z89.511 Acquired absence of right leg below knee; I10 Essential (primary) hypertension; Z98.84 Bariatric surgery status
CPT/HCPCS: 93005; 99285; 36415; 85025; 80053; 84484; 73560; 70450; 93010; A9270

== ENCOUNTER 2017-11-26 08:48 | Emergency (ER) | payer MEDICARE, MEDICAID ==
[2017-11-26] MEDS ORDERED: NORMAL SALINE 1000 ML 1,000 ML IV ONE ×2 (09:10→09:38)
[2017-11-26 09:29] LABS: ABSOLUTE EOSINOPHILS # (AUTO) 0.1 10^3/uL (0.0-0.6); ABSOLUTE MONOCYTES (AUTO) 0.4 10^3/uL (0.1-1.4); ABSOLUTE NEUT (AUTO) 5.5 10^3/uL (1.7-8.2); BASOPHILS % (AUTO) 0.4 % (0-2); EOSINOPHILS % (AUTO) 1.3 % (0-6); HEMATOCRIT 28.5 % (37.9-51.0); HEMOGLOBIN 10.1 g/dL (13.5-17.0); LYMPHOCYTES % (AUTO) 13.9 % (13-45); MEAN CORPUSCULAR HEMOGLOBIN 29.4 pg (27.0-33.4); MEAN CORPUSCULAR HGB CONC 35.6 g/dL (32.0-36.0); MEAN CORPUSCULAR VOLUME 83 fl (80-97); MONOCYTES % (AUTO) 5.3 % (3-13); PLATELET COUNT 279 10^3/uL (150-450); RED BLOOD COUNT 3.45 10^6/uL (4.35-5.55); RED CELL DISTRIBUTION WIDTH 13.3 % (11.5-14.0); SEGMENTED NEUTROPHILS % (AUTO) 79.1 % (42-78); TOTAL CELLS COUNTED % (AUTO) 100 %; WHITE BLOOD COUNT 6.9 10^3/uL (4.0-10.5)
[2017-11-26] MEDS ORDERED: DIAZEPAM INJ 10 MG/2 ML DISP.SYRIN IV ONE (09:38)
--- NOTE | 2017-11-26 09:42 | ER Document Report ---
ED General - General Chief Complaint: Fall Stated Complaint: DIZZY Time Seen by Provider: 11/26/17 09:20 Notes: Patient is a 52-year-old male with vertigo that presents to the emergency department for chief complaint of dizziness and falls and head injury. Patient reports that this morning he started feeling dizzy, with room spinning similar to his prior vertigo, he had a brief episode of syncope, this was witnessed by his sister, which typically happens with his vertigo according to the patient, he then fell 3 times, he did hit his head, but did not lose consciousness after hitting his head. He did take meclizine, but did not relieve his vertigo. He states is relatively controlled, but every so many months he does have a bad episode of vertigo the last for several days. He also reports that he has does have a history of a gastric ulcer, but reports it is not bleeding, his last scope was approximately 3 months ago, he has been having dark stool stools, and did have 2 episodes of bright red blood per rectum yesterday in addition to having the typical tarry stools. Denies having any chest pain, shortness of breath, difficulty breathing, abdominal pain, dysuria or hematuria. Past Medical History: Vertigo, peptic ulcer disease, bipolar disorder Past Surgical History: Gastric bypass surgery, perforated ulcer repair, multiple EGDs Social History: Denies tobacco, alcohol or drug use Family History: Reviewed and noncontributory for presenting illness Allergies: Reviewed, see documented allergy list. REVIEW OF SYSTEMS: Unless otherwise stated in this report the patient's positive and negative responses for review of systems for constitutional, eyes, ENT, cardiovascular, respiratory, gastrointestinal, neurological, genitourinary, musculoskeletal, and integumentary systems and related systems to the presenting problem are either as stated in the HPI or were not pertinent or were negative for the symptoms and/or complaints related to the presenting medical problem. PHYSICAL EXAMINATION: Vital signs reviewed, nursing noted reviewed. GENERAL: Well-appearing, well-nourished and in no acute distress. HEAD: Atraumatic, normocephalic. EYES: Eyes appear normal, extraocular movements intact, sclera anicteric, conjunctiva are pale ENT: nares patent, oropharynx clear without exudates. Moist mucous membranes. NECK: Normal range of motion, supple without lymphadenopathy LUNGS: Breath sounds clear to auscultation bilaterally and equal. No wheezes rales or rhonchi. HEART: Regular rate and rhythm without murmurs ABDOMEN: Soft, mild epigastric tenderness with palpation, normoactive bowel sounds. No rebound, guarding, or rigidity. No masses appreciated. EXTREMITIES: Right below the knee amputation, with prosthesis, nontender, good range of motion, no pitting or edema. NEUROLOGICAL: No focal neurological deficits. Moves all extremities spontaneously Motor and sensory grossly intact on exam. PSYCH: Normal mood, normal affect. SKIN: Warm, Dry, normal turgor, no rashes or lesions noted on exposed skin, pallor noted TRAVEL OUTSIDE OF THE [place] IN LAST 30 DAYS: No - Related Data Allergies/Adverse Reactions: aripiprazole [From [employer]] Adverse Reaction (Severe, Verified 03/26/17 11:35) "uncontrollable muscle tremors" Past Medical History - Social History Smoking Status: Never Smoker Chew tobacco use (# tins/day): No Frequency of alcohol use: None Drug Abuse: None Family History: Reviewed & Not Pertinent, CAD, Hypertension, Other - ulcers father and sister Patient has suicidal ideation: No Patient has homicidal ideation: No - Past Medical History Cardiac Medical History: Reports: Hx Hypertension Denies: Hx Coronary Artery Disease, Hx Heart Attack, Hx Heart Murmur Pulmonary Medical History: Denies: Hx Asthma, Hx Bronchitis, Hx COPD, Hx Pneumonia Neurological Medical History: Denies: Hx Cerebrovascular Accident, Hx Seizures Endocrine Medical History: Reports: Hx Diabetes Mellitus Type 2 - Since gastric bypass has been able to stop all medications Renal/ Medical History: Reports: Hx Kidney Stones. Denies: Hx Peritoneal Dialysis GI Medical History: Reports: Hx Gastroesophageal Reflux Disease, Hx Ulcer - 4x. Denies: Hx Pancreatitis Musculoskeletal Medical History: Reports Hx Arthritis Skin Medical History: Reports Hx MRSA Psychiatric Medical History: Reports: Hx Bipolar Disorder, Hx Depression Traumatic Medical History: Reports: Hx Fractures - RT ankle 2010 Infectious Medical History: Past Surgical History: Reports: Hx Abdominal Surgery - Repair of complications from gastric bypass, Hx Appendectomy - 1975, Hx Bowel Surgery - bowel perforation 09/26/2015, May 2016, Hx Gastric Bypass Surgery - 02/19/13, Hx Orthopedic Surgery - Right below-knee amputation, Hx Tonsillectomy - 1978 - Immunizations Immunizations up to date: Yes Hx Diphtheria, Pertussis, Tetanus Vaccination: Yes Hx Pneumococcal Vaccination: 03/03/11 Physical Exam - Vital signs Vitals: Temp Pulse Resp BP Pulse Ox 98.9 F 93 20 89/69 L 96 11/26/17 08:51 11/26/17 08:51 11/26/17 08:51 11/26/17 08:51 11/26/17 08:51 Course - Re-evaluation Re-evalutation: Patient seen and examined vital signs reviewed. Laboratory data and imaging were ordered as appropriate for the patient's presenting symptoms and complaint, with consideration of any critical or life threatening conditions that may be associated with their obtained history and exam as noted above. Patient's symptoms seem consistent with his prior episodes of vertigo, there is possible concern for ongoing GI bleed, will obtain CBC, and type and screen and compared with prior labs, if the patient is significantly more anemic than in the past, will consider blood transfusion, and referral to GI, and transfer. Patient was treated with IV fluids, and IV Valium, for the vertigo, he was noted to be Hypotensive Results were reviewed when available and demonstrated anemia, his baseline seem to be around 11 or 12, it was 10.1 today, however the patient did appear pale, and with history of tarry stools, suspect GI bleeding, patient's blood pressure remained borderline, he was still complaining of nausea, he was given Zofran, and Phenergan for this, and we repeated his hemoglobin, which decreased to 7.9, after about 5-1/2 hours, he had a CT of his head as well which was negative due to his head injury. The patient was re-evaluated and was still hypotensive despite IV fluids, at this point 2 units of packed red blood cells were ordered to be transfused. Patient's blood pressure was improving with blood transfusion, but I feel that the patient is bleeding, and will need emergent transfer to an institution has gastroenterology that can perform EGD. This was discussed with the patient and he agreed. Results were discussed with the patient at this point after careful consideration I feel that that patient should be transferred to [facility] due to acute gastrointestinal bleeding, hypotension. Case was discussed with Dr. Romain Best, with critical care medicine, this was discussed with the patient that it is in the best interest for their care to be transferred, the risks and benefits of transfer were discussed, including but not limited to clinical deterioration during transport, respiratory distress, and potential for traumatic injuries. Patient agreed with this plan of care. *Note is created using voice recognition software and may contain spelling, syntax or grammatical errors. Laboratory 11/26/17 11/26/17 11/26/17 08:19 08:19 08:19 WBC 6.9 RBC 3.45 L Hgb 10.1 L Hct 28.5 L MCV 83 MCH 29.4 MCHC 35.6 RDW 13.3 Plt Count 279 Seg Neutrophils % 79.1 H Lymphocytes % 13.9 Monocytes % 5.3 Eosinophils % 1.3 Basophils % 0.4 Absolute Neutrophils 5.5 Absolute Lymphocytes 1.0 Absolute Monocytes 0.4 Absolute Eosinophils 0.1 Absolute Basophils 0.0 Sodium 134.0 L Potassium 5.6 H Chloride 101 Carbon Dioxide 27 Anion Gap 6 BUN 19 Creatinine 0.71 Est GFR ( Amer) > 60 Est GFR (Non-Af Amer) > 60 Glucose 103 Calcium 8.9 Total Bilirubin 0.4 Direct Bilirubin 0.4 Neonat Total Bilirubin Not Reportable Neonat Direct Bilirubin Not Reportable Neonat Indirect Bili Not Reportable AST 15 L ALT 16 L Alkaline Phosphatase 58 Creatine Kinase 38 L CK-MB (CK-2) 0.45 Troponin I < 0.012 Total Protein 6.0 L Albumin 3.4 L Blood Type Antibody Screen Crossmatch 11/26/17 11/26/17 11/26/17 10:24 14:10 14:10 WBC 6.1 RBC 2.64 L Hgb 7.9 L D Hct 21.6 L MCV 82 MCH 29.7 MCHC 36.3 H RDW 13.0 Plt Count 214 Seg Neutrophils % Lymphocytes % Monocytes % Eosinophils % Basophils % Absolute Neutrophils Absolute Lymphocytes Absolute Monocytes Absolute Eosinophils Absolute Basophils Sodium Potassium Chloride Carbon Dioxide Anion Gap BUN Creatinine Est GFR ( Amer) Est GFR (Non-Af Amer) Glucose Calcium Total Bilirubin Direct Bilirubin Neonat Total Bilirubin Neonat Direct Bilirubin Neonat Indirect Bili AST ALT Alkaline Phosphatase Creatine Kinase CK-MB (CK-2) Troponin I < 0.012 Total Protein Albumin Blood Type O POSITIVE Antibody Screen NEGATIVE Crossmatch See Detail Chest X-Ray 11/26/17 09:21 IMPRESSION: NO ACUTE RADIOGRAPHIC FINDING IN THE CHEST. Head CT 11/26/17 09:38 IMPRESSION: NORMAL BRAIN CT WITHOUT CONTRAST. EVIDENCE OF ACUTE STROKE: NO. - Vital Signs Vital signs: Temp Pulse Resp BP Pulse Ox 98.5 F 82 16 89/62 L 96 11/26/17 15:01 11/26/17 15:01 11/26/17 15:01 11/26/17 15:01 11/26/17 15:01 - Laboratory Result Diagrams: 11/26/17 14:10 11/26/17 08:19 Laboratory results interpreted by me: 11/26/17 11/26/17 11/26/17 08:19 08:19 10:24 RBC 3.45 L Hgb 10.1 L Hct 28.5 L MCHC Seg Neutrophils % 79.1 H Sodium 134.0 L Potassium 5.6 H AST 15 L ALT 16 L Creatine Kinase 38 L Total Protein 6.0 L Albumin 3.4 L Crossmatch See Detail 11/26/17 14:10 RBC 2.64 L Hgb 7.9 L D Hct 21.6 L MCHC 36.3 H Seg Neutrophils % Sodium Potassium AST ALT Creatine Kinase Total Protein Albumin Crossmatch - EKG Interpretation by Me Additional EKG results interpreted by me: 11/26/17 09:40 EKG demonstrates sinus rhythm with a ventricular rate of 84 bpm, normal axis, normal intervals, no evidence of acute ischemia on this EKG, this compared with prior EKG from 09/29/2017 without significant change. Critical Care Note - Critical Care Note Total time excluding time spent on procedures (mins): 78 Comments: Critical care time 78 minutes exclusive from separate billable procedures for a patient requiring complex medical decision making, and high potential for clinical deterioration. In a patient that is hypertensive, with active acute GI bleeding, requiring multiple reassessments, fluid resuscitation, and blood product resuscitation. Time spent obtaining history from patient or surrogate, discussions with consultants, development of treatment plan with patient or surrogate, evaluation of patient's response to treatment, examination of patient , ordering and performing treatments and interventions, ordering and review of laboratory studies, re-evaluation of patient's condition, ordering and review of radiographic studies and review of old charts Discharge - Discharge Clinical Impression: Acute GI hemorrhage, Acute blood loss anemia, Vertigo Hypotension Qualifiers: Hypotension type: other hypotension type Qualified Code(s): I95.89 - Other hypotension Syncope Qualifiers: Syncope type: unspecified Qualified Code(s): R55 - Syncope and collapse Condition: Serious Disposition: [facility] Referrals: MERYL ORNELAS MD [Primary Care Provider] - Follow up as needed
[2017-11-26 09:58] LABS: ALANINE AMINOTRANSFERASE 16 U/L (21-72); ALBUMIN 3.4 g/dL (3.5-5.0); ALKALINE PHOSPHATASE 58 U/L (38-126); ANION GAP 6 (5-19); ASPARTATE AMINO TRANSFERASE 15 U/L (17-59); BILIRUBIN,DIRECT 0.4 mg/dL (0.0-0.4); BILIRUBIN,TOTAL 0.4 mg/dL (0.2-1.3); BLOOD UREA NITROGEN 19 mg/dL (7-20); CALCIUM 8.9 mg/dL (8.4-10.2); CARBON DIOXIDE 27 mmol/L (22-30); CHLORIDE 101 mmol/L (98-107); CREATINE KINASE 38 U/L (55-170); GLUCOSE 103 mg/dL (75-110); POTASSIUM 5.6 mmol/L (3.6-5.0)
[2017-11-26 10:04] LABS: CREATINE KINASE MB 0.45 ng/mL (<4.55)
[2017-11-26 10:06] LABS: TROPONIN I < 0.012 ng/mL
--- NOTE | 2017-11-26 10:31 | RADIOLOGY REPORT (SQ) ---
EXAM DESCRIPTION: CHEST SINGLE VIEW COMPLETED DATE/TIME: 11/26/2017 10:23 am REASON FOR STUDY: LIGHTHEADEDNESS COMPARISON: 12/12/2016 EXAM PARAMETERS: NUMBER OF VIEWS: One view. TECHNIQUE: Single frontal radiographic view of the chest acquired. RADIATION DOSE: NA LIMITATIONS: None. FINDINGS: LUNGS AND PLEURA: No opacities, masses or pneumothorax. No pleural effusion. MEDIASTINUM AND HILAR STRUCTURES: No masses. Contour normal. HEART AND VASCULAR STRUCTURES: Heart normal in size. Normal vasculature. BONES: No acute findings. HARDWARE: None in the chest. OTHER: No other significant finding. IMPRESSION: NO ACUTE RADIOGRAPHIC FINDING IN THE CHEST. TECHNICAL DOCUMENTATION: JOB ID: [id number] [employer]- All Rights Reserved Reading location - IP/workstation name: [email or web address]
--- NOTE | 2017-11-26 10:58 | RADIOLOGY REPORT (SQ) ---
EXAM DESCRIPTION: CT HEAD WITHOUT COMPLETED DATE/TIME: 11/26/2017 10:37 am REASON FOR STUDY: HEAD INJURY, HEADACHE COMPARISON: 09/29/2017 TECHNIQUE: Axial images acquired through the brain without intravenous contrast. Images reviewed wi th bone, brain and subdural windows. Additional sagittal and coronal reconstructions were generated. Images stored on PACS. All CT scanners at this facility use dose modulation, iterative reconstruction, and/or weight based d osing when appropriate to reduce radiation dose to as low as reasonably achievable (ALARA). [facility]: Dose Right [facility]: CareDose [facility]: Dose Right [facility]: Teradose 4D [facility]: Smart [employer] RADIATION DOSE: CT Rad equipment meets quality standard of care and radiation dose reduction techniq ues were employed. CTDIvol: 53.2 mGy. DLP: 1124 mGy-cm. mGy. LIMITATIONS: None. FINDINGS: VENTRICLES: Normal size and contour. CEREBRUM: No masses. No hemorrhage. No midline shift. No evidence for acute infarction. Normal gra y/white matter differentiation. No areas of low density in the white matter. CEREBELLUM: No masses. No hemorrhage. No alteration of density. No evidence for acute infarction. EXTRAAXIAL SPACES: No fluid collections. No masses. ORBITS AND GLOBE: No intra- or extraconal masses. Normal contour of globe without masses. CALVARIUM: No fracture. PARANASAL SINUSES: No fluid or mucosal thickening. SOFT TISSUES: No mass or hematoma. OTHER: No other significant finding. IMPRESSION: NORMAL BRAIN CT WITHOUT CONTRAST. EVIDENCE OF ACUTE STROKE: NO. COMMENT: Quality ID # [id number]: Final reports with documentation of one or more dose reduction techniques (e.g., Automated exposure control, adjustment of the mA and/or kV according to patient size, use of iterative reconstruction technique) TECHNICAL DOCUMENTATION: JOB ID: [id number] [employer]- All Rights Reserved Reading location - IP/workstation name: [email or web address]
[2017-11-26] MEDS ORDERED: ONDANSETRON HCL INJ/PF 4 MG/2 ML SDV IV ONE (11:15)
[2017-11-26] MEDS ORDERED: PANTOPRAZOLE SODIUM 40 MG VIAL IV ONE (12:21)
[2017-11-26] MEDS ORDERED: NORMAL SALINE 250 ML IV PRN (13:46)
[2017-11-26] MEDS ORDERED: PROMETHAZINE HCL INJ 25 MG/1 ML VIAL IV ONE (13:47)
[2017-11-26 14:36] LABS: HEMATOCRIT 21.6 % (37.9-51.0); MEAN CORPUSCULAR HEMOGLOBIN 29.7 pg (27.0-33.4); MEAN CORPUSCULAR HGB CONC 36.3 g/dL (32.0-36.0); MEAN CORPUSCULAR VOLUME 82 fl (80-97); PLATELET COUNT 214 10^3/uL (150-450); RED BLOOD COUNT 2.64 10^6/uL (4.35-5.55); WHITE BLOOD COUNT 6.1 10^3/uL (4.0-10.5)
[2017-11-26 14:43] LABS: HEMOGLOBIN 7.9 g/dL (13.5-17.0)
[2017-11-26] MEDS ORDERED: MECLIZINE HCL 25 MG TABLET PO ONE (14:51)
[2017-11-26] MEDS ORDERED: FENTANYL CITRATE INJ/PF 100 MCG/2 ML AMPUL IV ONE (15:31)
[2017-11-26 16:39] VITALS: BP 99/69
--- NOTE | 2017-11-26 19:38 | EKG REPORT ---
SEVERITY:- NORMAL ECG - SINUS RHYTHM : Confirmed by: Carley Landon MD 26-Nov-2017 19:38:24
== END 2017-11-26 16:58 | disposition short-term general hospital (02) ==
LOC: ER 08:48
DX: K92.2 Gastrointestinal hemorrhage, unspecified (principal); D62 Acute posthemorrhagic anemia; R42 Dizziness and giddiness; I95.89 Other hypotension; R55 Syncope and collapse; I10 Essential (primary) hypertension; Z87.442 Personal history of urinary calculi; Z98.84 Bariatric surgery status; Z89.511 Acquired absence of right leg below knee
CPT/HCPCS: 93005; 99291; 99292; 96361; 96374; 96375; 86900; 86901; 36415; 82553; 36430; 86850; 82550; 85025; 85027; 80053; 84484; 86920; 71045; 70450; 93010; P9016; J3360; J3010; A9270; C9113; J2550; J2405; S0164

== ENCOUNTER 2017-12-09 09:27 | Inpatient (IN) | payer MEDICARE, MEDICAID ==
[2017-12-09] MEDS ORDERED: NORMAL SALINE 1000 ML 1,000 ML IV ONE (10:06)
[2017-12-09] MEDS ORDERED: FAMOTIDINE INJ/PF 20 MG/2 ML SDV IV ONE (10:07)
--- NOTE | 2017-12-09 10:09 | ER Document Report ---
ED Medical Screen (RME) - General Chief Complaint: GI Bleeding Stated Complaint: DIZZY,VOMITING Time Seen by Provider: 12/09/17 10:04 Mode of Arrival: Wheelchair Information source: Patient TRAVEL OUTSIDE OF THE [place] IN LAST 30 DAYS: No - HPI Patient complains to provider of: GI bleed Onset: Other - 52-year-old man with a history of recurrent GI bleeds as a result of a gastric bypass in the past who presents for evaluation of recurrent GI bleed. Previously had clipping performed. He has had red blood per rectum as well as profound weakness over the last several days. Since leaving [place] where his surgeon as well as gastroneurologist evaluated recurrent ulcers and bleeds. He notes is very similar to previous. Last week he required 6 units of blood via transfusion for a GI bleed. - Related Data Allergies/Adverse Reactions: aripiprazole [From [employer]] Adverse Reaction (Severe, Verified 03/26/17 11:35) "uncontrollable muscle tremors" Past Medical History - Social History Chew tobacco use (# tins/day): No Frequency of alcohol use: None Drug Abuse: None - Past Medical History Cardiac Medical History: Reports: Hx Hypertension Denies: Hx Coronary Artery Disease, Hx Heart Attack, Hx Heart Murmur Pulmonary Medical History: Denies: Hx Asthma, Hx Bronchitis, Hx COPD, Hx Pneumonia Neurological Medical History: Denies: Hx Cerebrovascular Accident, Hx Seizures Endocrine Medical History: Reports: Hx Diabetes Mellitus Type 2 - Since gastric bypass has been able to stop all medications Renal/ Medical History: Reports: Hx Kidney Stones. Denies: Hx Peritoneal Dialysis GI Medical History: Reports: Hx Gastroesophageal Reflux Disease, Hx Ulcer - 4x. Denies: Hx Pancreatitis Musculoskeltal Medical History: Reports Hx Arthritis Skin Medical History: Reports Hx MRSA Psychiatric Medical History: Reports: Hx Bipolar Disorder, Hx Depression Traumatic Medical History: Reports: Hx Fractures - RT ankle 2010 Infectious Medical History: Past Surgical History: Reports: Hx Abdominal Surgery - Repair of complications from gastric bypass, Hx Appendectomy - 1975, Hx Bowel Surgery - bowel perforation 09/26/2015, May 2016, Hx Gastric Bypass Surgery - 02/19/13, Hx Orthopedic Surgery - Right below-knee amputation, Hx Tonsillectomy - 1978 - Immunizations Immunizations up to date: Yes Hx Diphtheria, Pertussis, Tetanus Vaccination: Yes History of Influenza Vaccine for 12/2016 - 05/2017 Season: Yes Influenza Administration Date for 12/2016 - 05/2017 Season: 01/01/17 Physical Exam - Vital signs Vitals: Temp Pulse Resp BP Pulse Ox 98.2 F 114 H 16 114/77 99 12/09/17 09:35 12/09/17 09:35 12/09/17 09:35 12/09/17 09:35 12/09/17 09:35 Course - Re-evaluation Re-evalutation: 12/09/17 10:08 Is a gentleman with evidence of a GI bleed. Have ordered basic labs for GI bleeding, including type and screen CBC CMP EKG troponin saline as well as Pepcid via IV. She will be seen through the main emergency department for further evaluation. - Vital Signs Vital signs: Temp Pulse Resp BP Pulse Ox 98.2 F 114 H 16 114/77 99 12/09/17 09:35 12/09/17 09:35 12/09/17 09:35 12/09/17 09:35 12/09/17 09:35 Doctor's Discharge - Discharge Referrals: MERYL ORNELAS MD [Primary Care Provider] - Follow up as needed
[2017-12-09] MEDS ORDERED: PROMETHAZINE HCL INJ 25 MG/1 ML VIAL IV ONE ×2 (10:58→15:53)
[2017-12-09] MEDS ORDERED: DIAZEPAM INJ 10 MG/2 ML DISP.SYRIN IV ONE (10:58)
[2017-12-09 11:13] LABS: ABSOLUTE EOSINOPHILS # (AUTO) 0.1 10^3/uL (0.0-0.6); ABSOLUTE LYMPHOCYTES (AUTO) 1.3 10^3/uL (0.5-4.7); ABSOLUTE MONOCYTES (AUTO) 0.5 10^3/uL (0.1-1.4); ABSOLUTE NEUT (AUTO) 5.4 10^3/uL (1.7-8.2); BASOPHILS % (AUTO) 0.4 % (0-2); EOSINOPHILS % (AUTO) 1.8 % (0-6); HEMATOCRIT 33.7 % (37.9-51.0); HEMOGLOBIN 11.2 g/dL (13.5-17.0); LYMPHOCYTES % (AUTO) 17.9 % (13-45); MEAN CORPUSCULAR HEMOGLOBIN 27.4 pg (27.0-33.4); MEAN CORPUSCULAR HGB CONC 33.2 g/dL (32.0-36.0); MEAN CORPUSCULAR VOLUME 83 fl (80-97); MONOCYTES % (AUTO) 7.1 % (3-13); PLATELET COUNT 494 10^3/uL (150-450); RED BLOOD COUNT 4.09 10^6/uL (4.35-5.55); RED CELL DISTRIBUTION WIDTH 15.7 % (11.5-14.0); SEGMENTED NEUTROPHILS % (AUTO) 72.8 % (42-78); TOTAL CELLS COUNTED % (AUTO) 100 %; WHITE BLOOD COUNT 7.4 10^3/uL (4.0-10.5)
[2017-12-09 11:27] LABS: INTERNATIONAL RATION (INR) 0.93; PROTHROMBIN TIME 12.9 SEC (11.4-15.4)
[2017-12-09 11:28] LABS: PARTIAL THROMBOPLASTIN TIME 27.8 SEC (23.5-35.8)
--- NOTE | 2017-12-09 11:37 | RADIOLOGY REPORT (SQ) ---
EXAM DESCRIPTION: CHEST SINGLE VIEW COMPLETED DATE/TIME: 12/09/2017 11:24 am REASON FOR STUDY: concern for air under diaphragm COMPARISON: None. EXAM PARAMETERS: NUMBER OF VIEWS: One view. TECHNIQUE: Single frontal radiographic view of the chest acquired. RADIATION DOSE: NA LIMITATIONS: None. FINDINGS: LUNGS AND PLEURA: No opacities, masses or pneumothorax. No pleural effusion. MEDIASTINUM AND HILAR STRUCTURES: No masses. Contour normal. HEART AND VASCULAR STRUCTURES: Heart normal in size. Normal vasculature. BONES: No acute findings. HARDWARE: None in the chest. OTHER: No other significant finding. IMPRESSION: NO ACUTE RADIOGRAPHIC FINDING IN THE CHEST. GAS IN THE UPPER ABDOMEN CONSISTENT WITH YOEL WEL GAS. TECHNICAL DOCUMENTATION: JOB ID: [id number] [employer]- All Rights Reserved Reading location - IP/workstation name: [email or web address]
[2017-12-09 12:01] LABS: ALANINE AMINOTRANSFERASE 24 U/L (21-72); ALBUMIN 4.7 g/dL (3.5-5.0); ALKALINE PHOSPHATASE 111 U/L (38-126); ANION GAP 13 (5-19); ASPARTATE AMINO TRANSFERASE 34 U/L (17-59); BILIRUBIN,DIRECT 0.3 mg/dL (0.0-0.4); BILIRUBIN,TOTAL 0.4 mg/dL (0.2-1.3); BLOOD UREA NITROGEN 16 mg/dL (7-20); CALCIUM 10.1 mg/dL (8.4-10.2); CARBON DIOXIDE 25 mmol/L (22-30); CHLORIDE 103 mmol/L (98-107); GLUCOSE 100 mg/dL (75-110); LIPASE 76.3 U/L (23-300); SODIUM 140.7 mmol/L (137-145); TOTAL PROTEIN 8.4 g/dL (6.3-8.2)
[2017-12-09] MEDS ORDERED: ACETAMINOPHEN 325 MG TABLET PO ONE (13:46)
[2017-12-09] MEDS ORDERED: PANTOPRAZOLE SODIUM 40 MG VIAL IV ONE (14:05)
[2017-12-09] MEDS ORDERED: PANTOPRAZOLE SODIUM 40 MG VIAL IV STA (14:06)
--- NOTE | 2017-12-09 14:19 | ER Document Report ---
ED GI Bleed / Rectal Pain - General Chief Complaint: GI Bleeding Stated Complaint: DIZZY,VOMITING Time Seen by Provider: 12/09/17 10:04 Mode of Arrival: Ambulatory Information source: Patient Notes: Patient is a 52-year-old male comes in with a complaint of lightheadedness dizziness vertigo presentations. Patient was seen here on November 26 for similar presentation. On that day his hemoglobin on the first draw was 10.1 and on the second draw 5 hours later it was down to 7. Patient received a unit of blood here and then was flown to [place] where he underwent a an upper endoscopy and a lower endoscopy he was found to have a bleeding area in his stomach that was clipped. He states that he was stayed there a total of 5 days and then was released. He states he was doing much better until yesterday and he started feeling weak again had 2 bowel movements of bright red blood per rectum yesterday and 2 today. He is also vomited at least twice because of his lightheadedness and dizziness. Patient states am afraid that I am bleeding again. Patient also states that he also has a splitting headache again like he did last time. He tells me that his vertigo last time was treated very well with the with the Valium and some fluids. TRAVEL OUTSIDE OF THE [place] IN LAST 30 DAYS: No - HPI Patient complains to provider of: Bright red bld from rect. Onset: Yesterday Timing/Duration: Sudden, Constant, Worse Quality of pain: Throbbing Severity of symptoms: Moderate Pain Level: 3 Vomiting X: 2 Diarrhea X: 0 Last bowel movement: PAINTER TOUCH UP Emesis description: Clear Rectal bleeding: Bloody diarrhea Rectal foreign body: No Rectal pain with intercourse: No Use of: denies: Warfarin, Plavix, ASA, Lovenox, Pradaxa, NSAIDS, ETOH Associated symptoms: Fainting/dizzy/lightheade Exacerbated by: Sitting, Standing, Walking Relieved by: Supine Similar symptoms previously: Yes Recently seen / treated by doctor: Yes - Related Data Allergies/Adverse Reactions: aripiprazole [From [facility]] Adverse Reaction (Severe, Verified 03/26/17 11:35) "uncontrollable muscle tremors" Past Medical History - General Information source: Patient - Social History Smoking Status: Never Smoker Chew tobacco use (# tins/day): No Frequency of alcohol use: None Drug Abuse: None Family History: Reviewed & Not Pertinent, CAD, Hypertension, Other - ulcers father and sister Patient has suicidal ideation: No Patient has homicidal ideation: No - Past Medical History Cardiac Medical History: Reports: Hx Hypertension Denies: Hx Coronary Artery Disease, Hx Heart Attack, Hx Heart Murmur Pulmonary Medical History: Denies: Hx Asthma, Hx Bronchitis, Hx COPD, Hx Pneumonia Neurological Medical History: Denies: Hx Cerebrovascular Accident, Hx Seizures Endocrine Medical History: Reports: Hx Diabetes Mellitus Type 2 - Since gastric bypass has been able to stop all medications Renal/ Medical History: Reports: Hx Kidney Stones. Denies: Hx Peritoneal Dialysis GI Medical History: Reports: Hx Gastroesophageal Reflux Disease, Hx Ulcer - 4x. Denies: Hx Pancreatitis Musculoskeletal Medical History: Reports Hx Arthritis Skin Medical History: Reports Hx MRSA Psychiatric Medical History: Reports: Hx Bipolar Disorder, Hx Depression Traumatic Medical History: Reports: Hx Fractures - RT ankle 2010 Infectious Medical History: Past Surgical History: Reports: Hx Abdominal Surgery - Repair of complications from gastric bypass, Hx Appendectomy - 1975, Hx Bowel Surgery - bowel perforation 09/26/2015, May 2016, Hx Gastric Bypass Surgery - 02/19/13, Hx Orthopedic Surgery - Right below-knee amputation, Hx Tonsillectomy - 1978 - Immunizations Immunizations up to date: Yes Hx Diphtheria, Pertussis, Tetanus Vaccination: Yes Hx Pneumococcal Vaccination: 03/03/11 Review of Systems - Review of Systems Constitutional: See HPI, Malaise, Weakness, Weight loss EENT: No symptoms reported Cardiovascular: No symptoms reported Respiratory: Short of breath Gastrointestinal: See HPI, Vomiting, Blood streaked bowels, Rectal bleeding Genitourinary: No symptoms reported Male Genitourinary: No symptoms reported Musculoskeletal: No symptoms reported Skin: No symptoms reported Hematologic/Lymphatic: No symptoms reported Neurological/Psychological: No symptoms reported -: Yes All other systems reviewed and negative Physical Exam - Vital signs Vitals: Temp Pulse Resp BP Pulse Ox 98.2 F 114 H 16 114/77 99 12/09/17 09:35 12/09/17 09:35 12/09/17 09:35 12/09/17 09:35 12/09/17 09:35 Interpretation: Hypotensive, Tachycardic - Notes Notes: Patient is a 52-year-old male who appears much older than his stated age. He is no distress but he is definitely uncomfortable appearing. Very pale very cachectic appearing. - General General appearance: Alert - HEENT Head: Normocephalic, Atraumatic Eyes: Normal Conjunctiva: Icteric, Injected Cornea: Normal - Respiratory Respiratory status: No respiratory distress Chest status: Nontender Breath sounds: Normal. No: Rales, Rhonchi, Stridor, Wheezing Chest palpation: Normal - Abdominal Inspection: Normal Distension: No distension Bowel sounds: Hyperactive Tenderness: Tender. No: McBurney's point, Calle's sign, Guarding, Rebound Organomegaly: No organomegaly - Rectal Tenderness: No Stool: Heme positive, See lab result Hemorrhoids: None Prostate: Normal - Extremities General upper extremity: Normal inspection, Nontender, Normal ROM, Normal strength General lower extremity: Normal inspection, Nontender, Normal ROM, Normal strength - Neurological Neuro grossly intact: Yes Cognition: Normal Orientation: AAOx4 Uzair Coma Scale Eye Opening: Spontaneous [place] Coma Scale Verbal: Oriented Uzair Coma Scale Motor: Obeys Commands Uzair Coma Scale Total: 15 Speech: Normal - Skin Skin Temperature: Cool Skin Moisture: Moist Skin Color: Pale Course - Re-evaluation Re-evalutation: 12/09/17 14:40 After getting back all patients labs everything turned out fairly negative at this time however patient is hypotensive and tachycardic still and given his history we decided to contact Dr. Pastrana and run the case by him. He feels patient should go to the OR for an upper endoscopy at least and he will be down to see him in a little bit. Meantime of contacted Dr. Rios and he is agreed to put him into the ICU. Dr. Pastrana came down and saw the patient and feels that they clamped him bleeder about a week ago and is about time for to follow-up. They feels that that lesion is probably bleeding again. They can go in and see if he can clamp it off again. Patient will go from our ER to the OR and then to ICU. 12/09/17 14:43 - Vital Signs Vital signs: Temp Pulse Resp BP Pulse Ox 98.2 F 114 H 18 101/78 99 12/09/17 09:35 12/09/17 09:35 12/09/17 13:01 12/09/17 13:01 12/09/17 09:35 - Laboratory Result Diagrams: 12/09/17 10:15 12/09/17 10:15 Laboratory results interpreted by me: 12/09/17 12/09/17 10:15 10:15 RBC 4.09 L Hgb 11.2 L Hct 33.7 L RDW 15.7 H Plt Count 494 H Total Protein 8.4 H Discharge - Discharge Clinical Impression: Upper GI bleeding Disposition: ADMITTED INPATIENT Admitting Provider: Gabriel Unit Admitted: ICU Referrals: MERYL RIOS MD [Primary Care Provider] - Follow up as needed
--- NOTE | 2017-12-09 14:56 | PDOC CONSULTATION ---
Consultation Consult Date: 12/09/17 Attending physician:: GODFREY ALLEN Consult reason:: history of anastomotic ulcer with previous GI bleeding in the past History of Present Illness Admission Date/PCP: MERYL ORNELAS MD History of Present Illness: YESSY ALMODOVAR is a 52 year old male patient presented to the ED, states he is not feeling well and is dizzy patient previously had to be transferred to [facility] where EGD was done apparently had to have Enodclip placed due to visible vessal that was bleeding patient noted to have black stools again his HGB is stable but patient is symptomatic on standing patient is seeing Dr Edinson Fletcher on [facility] there has been a discussion about possibly reversing his anastomotic site patient was scheduled for an outpatient colonoscopy but he would like to have an inpatient colonoscopy patient does have symptoms of weakness he will need EGD possibly colonoscopy on another day. Past Medical History Cardiac Medical History: Reports: Hypertension Denies: Coronary Artery Disease, Myocardial Infarction, Heart Murmur Pulmonary Medical History: Denies: Asthma, Bronchitis, Chronic Obstructive Pulmonary Disease (COPD), Pneumonia Neurological Medical History: Denies: Seizures Endocrine Medical History: Reports: Diabetes Mellitus Type 2 - Since gastric bypass has been able to stop all medications GI Medical History: Reports: Gastroesophageal Reflux Disease Musculoskeltal Medical History: Reports: Arthritis Psychiatric Medical History: Reports: Bipolar Disorder, Depression Hematology: Reports: Anemia Past Surgical History Past Surgical History: Reports: Appendectomy - 1975, Gastric Bypass Surgery - , Orthopedic Surgery - Right below-knee amputation, Tonsillectomy - 1978 Social History Smoking Status: Never Smoker Frequency of Alcohol Use: None Hx Recreational Drug Use: No Drugs: None Hx Prescription Drug Abuse: No Family History Family History: Reviewed & Not Pertinent, CAD, Hypertension, Other - ulcers father and sister Parental Family History Reviewed: Yes Children Family History Reviewed: Unknown Sibling(s) Family History Reviewed.: Unknown Medication/Allergy Home Medications: Escitalopram Oxalate [Lexapro] 40 mg PO DAILY 03/26/17 Olanzapine [Zyprexa] 20 mg PO QHS 03/26/17 Quetiapine Fumarate [Seroquel] 600 mg PO QHS 03/26/17 Trazodone HCl [Desyrel] 200 mg PO QHS 03/26/17 Omeprazole 40 mg PO DAILY #90 capsule. 03/30/17 Tramadol HCl [Ultram] 50 mg PO TID #14 tablet 09/22/17 Ergocalciferol (Vitamin D2) [Vitamin D2] 50,000 unit PO Q14D 09/23/17 Linaclotide [Linzess] 290 mcg PO DAILY 09/23/17 Magnesium Hydroxide [Milk of Magnesia 30 ml Udcup] 30 ml PO BIDP PRN 09/23/17 Promethazine HCl [Phenergan 25 mg Tablet] 50 mg PO Q6H 09/23/17 Ranitidine HCl [Zantac 150 mg Tablet] 150 mg PO BID 09/23/17 Sucralfate [Carafate Susp 1 gm/10 ml Udcup] 1 gm PO QID 09/23/17 Meclizine HCl 25 mg PO Q8H PRN #90 tab.chew 09/25/17 Allergies/Adverse Reactions: [facility] Adverse Reaction (Severe, Verified 03/26/17 11:35) "uncontrollable muscle tremors" Review of Systems Constitutional: PRESENT: weakness. ABSENT: fever(s), headache(s), night sweats Eyes: ABSENT: visual disturbances Ears: ABSENT: hearing changes Nose, Mouth, and Throat: ABSENT: mouth pain Cardiovascular: ABSENT: edema, orthropnea, palpitations Respiratory: ABSENT: dyspnea, hemoptysis Gastrointestinal: PRESENT: melena, nausea, vomiting. ABSENT: diarrhea, dysphagia Genitourinary: ABSENT: dysuria, hematuria Musculoskeletal: ABSENT: deformity, joint swelling Integumentary: ABSENT: lesions, pruritus Neurological: PRESENT: weakness. ABSENT: syncope, tingling, tremor(s), vertigo Endocrine: ABSENT: polyphagia, polyuria Physical Exam Vital Signs: Temp Pulse Resp BP Pulse Ox 98.4 F 114 H 18 102/77 99 12/09/17 14:41 12/09/17 09:35 12/09/17 14:41 12/09/17 14:00 12/09/17 14:41 Intake & Output 12/08/17 12/09/17 12/10/17 06:59 06:59 06:59 Intake Total 1000 Output Total 300 Balance 700 Weight 88.6 kg General appearance: PRESENT: mild distress, well-developed, well-nourished Head exam: PRESENT: atraumatic, normocephalic Eye exam: PRESENT: EOMI, PERRLA. ABSENT: nystagmus, periorbital swelling, scleral icterus Mouth exam: PRESENT: moist, neck supple Throat exam: ABSENT: tonsillar exudate, tonsillogmegaly Neck exam: ABSENT: meningismus, tenderness, thyromegaly Respiratory exam: PRESENT: unlabored. ABSENT: symmetrical, tachypnea, wheezes Cardiovascular exam: PRESENT: RRR, +S1, +S2 GI/Abdominal exam: PRESENT: soft. ABSENT: rebound, rigid, tenderness Extremities exam: ABSENT: joint swelling Musculoskeletal exam: PRESENT: full ROM Neurological exam: PRESENT: oriented to time, oriented to situation, CN II-XII grossly intact Focused psych exam: ABSENT: restlessness Skin exam: PRESENT: normal color. ABSENT: mottled, pallor, urticaria, vesicles Results Laboratory Results: 12/09/17 10:15 12/09/17 10:15 12/09/17 12/09/17 12/09/17 10:15 10:15 10:20 WBC 7.4 RBC 4.09 L Hgb 11.2 L Hct 33.7 L MCV 83 MCH 27.4 MCHC 33.2 RDW 15.7 H Plt Count 494 H Seg Neutrophils % 72.8 Lymphocytes % 17.9 Monocytes % 7.1 Eosinophils % 1.8 Basophils % 0.4 Absolute Neutrophils 5.4 Absolute Lymphocytes 1.3 Absolute Monocytes 0.5 Absolute Eosinophils 0.1 Absolute Basophils 0.0 Sodium 140.7 Potassium 5.0 Chloride 103 Carbon Dioxide 25 Anion Gap 13 BUN 16 Creatinine 0.76 Est GFR ( Amer) > 60 Est GFR (Non-Af Amer) > 60 Glucose 100 Calcium 10.1 Total Bilirubin 0.4 AST 34 ALT 24 Alkaline Phosphatase 111 Total Protein 8.4 H Albumin 4.7 Lipase 76.3 Stool Occult Blood Blood Type O POSITIVE Antibody Screen NEGATIVE 12/09/17 12:35 WBC RBC Hgb Hct MCV MCH MCHC RDW Plt Count Seg Neutrophils % Lymphocytes % Monocytes % Eosinophils % Basophils % Absolute Neutrophils Absolute Lymphocytes Absolute Monocytes Absolute Eosinophils Absolute Basophils Sodium Potassium Chloride Carbon Dioxide Anion Gap BUN Creatinine Est GFR ( Amer) Est GFR (Non-Af Amer) Glucose Calcium Total Bilirubin AST ALT Alkaline Phosphatase Total Protein Albumin Lipase Stool Occult Blood POSITIVE Blood Type Antibody Screen 12/09/17 10:15 Troponin I < 0.012 Impressions: Chest X-Ray 12/09/17 10:05 IMPRESSION: NO ACUTE RADIOGRAPHIC FINDING IN THE CHEST. GAS IN THE UPPER ABDOMEN CONSISTENT WITH BOWEL GAS. Assessment & Plan - Diagnosis (1) Anastomotic ulcer Plan: previously has had recent anastomotic ulcer with bleeding and placement of Endoclip patient was discharged from [facility] earlier this month and similar symptoms have recurred patient will probably need urgent EGD first, I do suspect that patient's clip may have fallen off will rule out upper GI bleeding Risks, benefits and alternatives are discussed he is willing to proceed (2) Diarrhea Qualifiers: Diarrhea type: unspecified type Qualified Code(s): R19.7 - Diarrhea, unspecified Plan: previous prep was not as good will need colonoscopy prior to his discharge however will exclude upper GI bleeding first then patient can be prepped to have his colonoscopy on another day (3) Epigastric pain Plan: anastomotic ulcer there has been a discussion with his surgeon about doing a revision at some point would be admitted, PPI drip - Time Time Spent: 50 to 70 Minutes
[2017-12-09] MEDS ORDERED: DIPHENHYDRAMINE HCL 50 MG/ML VIAL ONE (17:20)
[2017-12-09] MEDS ORDERED: GLUCAGON,HUMAN RECOMB 1 MG INJ ONE (17:21)
[2017-12-09] MEDS ORDERED: FLUMAZENIL INJ 0.5 MG/5 ML VIAL ONE (17:21)
[2017-12-09] MEDS ORDERED: EPINEPHRINE INJ 1 MG/10 ML DISP.SYRIN ONE (17:21)
[2017-12-09] MEDS ORDERED: ONDANSETRON HCL INJ/PF 4 MG/2 ML SDV ONE (17:21)
[2017-12-09] MEDS ORDERED: NALOXONE HCL INJ/PF 0.4 MG/1 ML SDV ONE (17:21)
[2017-12-09] MEDS ORDERED: FENTANYL CITRATE INJ/PF 100 MCG/2 ML AMPUL ONE (17:21)
[2017-12-09] MEDS: MIDAZOLAM 2 MG/2 ML INJ ONE ×2 (18:00→18:03)
--- NOTE | 2017-12-09 18:22 | Operative Report ---
Operative Report DATE OF SURGERY: 12/09/17 Operative Report: The risks benefits and alternatives of the procedure explained to the patient in detail and informed consent is obtained.A GIF Olympus video scope was inserted into the patient's mouth and hypopharynx, the esophagus is identified intubated and insufflated, the scope was then advanced through the esophagus stomach and duodenum, retroflexion maneuver is done the esophagus stomach and first and second portions of the duodenum examined PREOPERATIVE DIAGNOSIS: Possible GI bleed POSTOPERATIVE DIAGNOSIS: Gastric ulcer at the entrance to the efferent loop of the small intestine. Endo Clip is still present. Gastritis in the pouch. No active bleeding OPERATION: EGD with biopsy SURGEON: GODFREY ALLEN ANESTHESIA: Moderate Sedation - 4 mg of Versed, 75 mcg of fentanyl. Conscious sedation monitoring time 30 minutes. TISSUE REMOVED OR ALTERED: Shallow gastric specimen obtained COMPLICATIONS: None. ESTIMATED BLOOD LOSS: None. INTRAOPERATIVE FINDINGS: As noted above. PROCEDURE: Patient tolerated the procedure well No immediate postprocedure complications are noted. No active upper GI bleeding is noted at least in the gastric pouch and beyond. It is unclear if that could be a source in the ambler stomach He was scheduled for an outpatient colonoscopy This can be done as an inpatient We will wait on the biopsies Because of current sedation he will not be able to prep until tomorrow, therefore procedure can be done on If he has a significant drop of his H&H of bleeding scan should be the next step Continue PPI therapy We will exclude Helicobacter pylori as a cause of his ulcers and treat that Further recommendations to follow
--- NOTE | 2017-12-09 19:54 | EKG REPORT ---
SEVERITY:- ABNORMAL ECG - SINUS TACHYCARDIA LEFT VENTRICULAR HYPERTROPHY : Confirmed by: Carley Landon MD 09-Dec-2017 19:53:29
--- NOTE | 2017-12-09 21:23 | PDOC H&P ---
History of Present Illness Admission Date/PCP: 12/09/17 15:08 MERYL ORNELAS MD History of Present Illness: YESSY ALMODOVAR is a 52 year old male he has a history of bleeding anastomotic ulcer, he came to the emergency room for evaluation of GI bleed, vomiting and dizziness. He presented initially to the emergency room on November 26, 2017 for evaluation of GI bleed at that time his hemoglobin dropped from 10-7 within a span of 3-5 hours, he was transfused with packed red blood cells and was transferred to [facility] where he underwent an upper endoscopy and lower endoscopy, he was found to have a bleeding ulcer in his stomach that was clipped. He stayed for 5 days in the [facility] where he was transferred to, he stated he was doing well until yesterday when he felt weak and he had 2 bloody bowel movement he was concerned that he is bleeding again. This has been ongoing for a while now he has had multiple GI endoscopy for evaluation of GI bleed, the plan as I understood it was that he was to have revision of the gastric bypass surgery, this was planned over a year ago but for some reason this has not been done. He continued to have GI bleed from this anastomotic ulcer, he was seen by GI Dr. Pastrana because of his concern for aortic bleed he underwent emergency upper endoscopy, he was found to have gastric ulcer at the entrance of the efferent loop of the small intestine the Endo Clip is still present there was no active bleeding the plan is for colonoscopy after the colon is prepped, this would take at least 24 hours. Patient looks extremely pale though the hemoglobin is reasonable at 11.2, he also have chronic vertigo, he said the vertigo is controlled by Valium, he has tried meclizine without any good response. He is status post right below-knee amputation, he was staying until recently at assisted living facility,[facility], he now lives at home. Past Medical History Cardiac Medical History: Reports: Hypertension Pulmonary Medical History: Endocrine Medical History: Reports: Diabetes Mellitus Type 2 - Since gastric bypass has been able to stop all medications GI Medical History: Reports: Gastroesophageal Reflux Disease, Other - Recurrent upper GI bleed from anastomotic ulcer Musculoskeltal Medical History: Reports: Arthritis Psychiatric Medical History: Reports: Bipolar Disorder, Depression Hematology: Reports: Anemia Past Surgical History Past Surgical History: Reports: Appendectomy - 1975, Gastric Bypass Surgery - , Orthopedic Surgery - Right below-knee amputation, Tonsillectomy - 1978 Social History Smoking Status: Never Smoker Frequency of Alcohol Use: None Hx Recreational Drug Use: No Drugs: None Hx Prescription Drug Abuse: No - Advance Directive Resuscitation Status: Full Code Family History Family History: Reviewed & Not Pertinent, CAD, Hypertension, Other - ulcers father and sister Parental Family History Reviewed: Yes Children Family History Reviewed: Yes Sibling(s) Family History Reviewed.: Yes Medication/Allergy Home Medications: Escitalopram Oxalate [Lexapro] 40 mg PO DAILY 03/26/17 Olanzapine [Zyprexa] 20 mg PO QHS 03/26/17 Quetiapine Fumarate [Seroquel] 600 mg PO QHS 03/26/17 Trazodone HCl [Desyrel] 100 mg PO QHS 03/26/17 Linaclotide [Linzess] 290 mcg PO DAILY 09/23/17 Meclizine HCl 25 mg PO BID 12/09/17 Omeprazole 40 mg PO BID 12/09/17 Allergies/Adverse Reactions: aripiprazole [From [facility]] Adverse Reaction (Severe, Verified 03/26/17 11:35) "uncontrollable muscle tremors" Review of Systems Constitutional: ABSENT: chills, fever(s), headache(s), weight gain, weight loss Eyes: ABSENT: visual disturbances Ears: ABSENT: hearing changes Cardiovascular: ABSENT: chest pain, dyspnea on exertion, edema, orthropnea, palpitations Respiratory: ABSENT: cough, hemoptysis Gastrointestinal: PRESENT: hematochezia Genitourinary: ABSENT: dysuria, hematuria Musculoskeletal: ABSENT: joint swelling Integumentary: ABSENT: rash, wounds Neurological: PRESENT: dizziness. ABSENT: abnormal gait, abnormal speech, confusion, focal weakness, syncope Psychiatric: ABSENT: anxiety, depression, homidical ideation, suicidal ideation Endocrine: ABSENT: cold intolerance, heat intolerance, menstrual abnormalities, polydipsia, polyuria Hematologic/Lymphatic: ABSENT: easy bleeding, easy bruising, lymphadenopathy Physical Exam Vital Signs: Temp Pulse Resp BP Pulse Ox 98.4 F 72 16 107/72 96 12/09/17 19:11 12/09/17 19:28 12/09/17 19:11 12/09/17 19:11 12/09/17 19:11 Intake & Output 12/08/17 12/09/17 12/10/17 06:59 06:59 06:59 Intake Total 100 Balance 100 General appearance: PRESENT: no acute distress Head exam: PRESENT: atraumatic, normocephalic Eye exam: PRESENT: conjunctiva pale Mouth exam: PRESENT: moist, tongue midline Neck exam: PRESENT: full ROM Respiratory exam: PRESENT: clear to auscultation jorge Cardiovascular exam: PRESENT: RRR, +S1, +S2, systolic murmur Vascular exam: PRESENT: normal capillary refill GI/Abdominal exam: PRESENT: normal bowel sounds, soft Rectal exam: PRESENT: deferred Extremities exam: PRESENT: right AKA Neurological exam: PRESENT: alert, CN II-XII grossly intact Skin exam: PRESENT: dry, intact, warm Results Impressions: Chest X-Ray 12/09/17 10:05 IMPRESSION: NO ACUTE RADIOGRAPHIC FINDING IN THE CHEST. GAS IN THE UPPER ABDOMEN CONSISTENT WITH BOWEL GAS. Assessment & Plan - Diagnosis (1) Hemorrhage of anastomosis due to ulcer Is this a current diagnosis for this admission?: Yes Plan: There is no active bleeding at this time, patient is scheduled for colonoscopy (2) Vertigo, labyrinthine Qualifiers: Laterality: unspecified laterality Qualified Code(s): H81.09 - Meniere's disease, unspecified ear Is this a current diagnosis for this admission?: Yes Plan: He said the Valium helped his symptoms (3) GI (gastrointestinal bleed) Qualifiers: GI bleed type/associated pathology: unspecified gastrointestinal hemorrhage type Qualified Code(s): K92.2 - Gastrointestinal hemorrhage, unspecified Is this a current diagnosis for this admission?: Yes
[2017-12-09] MEDS ORDERED: QUETIAPINE FUMARATE 100 MG TABLET PO ONE (22:45)
[2017-12-09] MEDS ORDERED: OLANZAPINE 5 MG TABLET PO ONE (22:45)
[2017-12-09] MEDS ORDERED: TRAZODONE HCL 50 MG TABLET PO ONE (23:00)
--- NOTE | 2017-12-10 07:26 | PDOC PROGRESS REPORT ---
Subjective Progress Note for:: 12/10/17 Subjective:: patient had EGD done yesterday and there was no signs of upper gi bleeding patient is scheduled for colonoscopy tomorrow patient has had anastomotic ulcer that has been persistent patient is in discussion with bariatric surgeon for potential resection he will need to have colonoscopy done would check his iron, vit d etc and replete as I suspect that he would be nutritionally deplete hgb is stable Reason For Visit: UPPER GASTROINTESTINAL HEMORRHAGE Physical Exam Vital Signs: Temp Pulse Resp BP Pulse Ox 98.0 F 71 18 107/78 98 12/10/17 03:58 12/10/17 03:58 12/10/17 03:58 12/10/17 03:58 12/10/17 03:58 Intake & Output 12/09/17 12/10/17 12/11/17 06:59 06:59 06:59 Intake Total 726 Output Total 1675 Balance -949 Weight 86.5 kg General appearance: PRESENT: no acute distress, well-developed, well-nourished Head exam: PRESENT: atraumatic, normocephalic Eye exam: PRESENT: EOMI, PERRLA. ABSENT: nystagmus, periorbital swelling, scleral icterus Mouth exam: PRESENT: moist, neck supple Throat exam: ABSENT: tonsillar exudate, tonsillogmegaly Neck exam: ABSENT: meningismus, tenderness, thyromegaly Respiratory exam: PRESENT: symmetrical, unlabored. ABSENT: tachypnea, wheezes Cardiovascular exam: PRESENT: RRR, +S1, +S2 GI/Abdominal exam: PRESENT: soft. ABSENT: rebound, rigid, tenderness Extremities exam: ABSENT: joint swelling Neurological exam: PRESENT: alert, awake, oriented to time, oriented to situation, CN II-XII grossly intact. ABSENT: altered Focused psych exam: ABSENT: restlessness Skin exam: PRESENT: normal color, pallor. ABSENT: mottled, urticaria, vesicles Results Impressions: Chest X-Ray 12/09/17 10:05 IMPRESSION: NO ACUTE RADIOGRAPHIC FINDING IN THE CHEST. GAS IN THE UPPER ABDOMEN CONSISTENT WITH BOWEL GAS. Assessment & Plan - Diagnosis (1) Anastomotic ulcer Is this a current diagnosis for this admission?: Yes Plan: no bleeding is noted endoclip is still present continue PPI for now check Vitb12, vit D, iron, etc (2) Diarrhea Qualifiers: Diarrhea type: unspecified type Qualified Code(s): R19.7 - Diarrhea, unspecified Is this a current diagnosis for this admission?: Yes Plan: will need colonoscopy and is schedule for tomorrow patient willing to proceed patient will be getting prep today previous prep was not adequate - Time Time Spent with patient: 15-24 minutes
[2017-12-10] MEDS ORDERED: ACETAMINOPHEN 325 MG TABLET PO PRN (08:59)
[2017-12-10] MEDS: MECLIZINE HCL 25 MG TABLET PO SCH ×2 (09:26→17:06)
[2017-12-10] MEDS: ESCITALOPRAM OXALATE 10 MG TABLET PO SCH (09:26)
[2017-12-10] MEDS: LANSOPRAZOLE 30 MG TAB.RAP.DR PO SCH ×2 (09:27→17:06)
[2017-12-10] MEDS: BUTALB/ACETAMINOPHEN/CAFFEINE 1 TAB EACH PO PRN (11:52)
[2017-12-10] MEDS ORDERED: PEG 3350/NA SULF,BICARB,CL/KCL 4000 ML PO ONE (15:00)
--- NOTE | 2017-12-10 16:02 | PDOC PROGRESS REPORT ---
Subjective Progress Note for:: 12/10/17 Subjective:: Patient seen by the bedside, is scheduled for colectomy tomorrow, the hemoglobin dropped from 11-9, no evidence of active GI bleed Reason For Visit: UPPER GASTROINTESTINAL HEMORRHAGE Physical Exam Vital Signs: Temp Pulse Resp BP Pulse Ox 98.8 F 71 16 123/96 H 99 12/10/17 12:28 12/10/17 14:00 12/10/17 12:28 12/10/17 12:28 12/10/17 12:28 Intake & Output 12/09/17 12/10/17 12/11/17 06:59 06:59 06:59 Intake Total 726 725 Output Total 1675 2150 Balance -949 -1425 Weight 86.5 kg General appearance: PRESENT: no acute distress Eye exam: PRESENT: PERRLA Respiratory exam: PRESENT: clear to auscultation jorge Cardiovascular exam: PRESENT: +S1, +S2 GI/Abdominal exam: PRESENT: soft Neurological exam: PRESENT: alert Results Impressions: Chest X-Ray 12/09/17 10:05 IMPRESSION: NO ACUTE RADIOGRAPHIC FINDING IN THE CHEST. GAS IN THE UPPER ABDOMEN CONSISTENT WITH BOWEL GAS. Assessment & Plan - Diagnosis (1) Hemorrhage of anastomosis due to ulcer Is this a current diagnosis for this admission?: Yes (2) Vertigo, labyrinthine Qualifiers: Laterality: unspecified laterality Qualified Code(s): H81.09 - Meniere's disease, unspecified ear Is this a current diagnosis for this admission?: Yes (3) GI (gastrointestinal bleed) Qualifiers: GI bleed type/associated pathology: unspecified gastrointestinal hemorrhage type Qualified Code(s): K92.2 - Gastrointestinal hemorrhage, unspecified Is this a current diagnosis for this admission?: Yes
[2017-12-10] MEDS: DIAZEPAM 2 MG TABLET PO PRN (16:14)
[2017-12-10 16:39] LABS: ALANINE AMINOTRANSFERASE 24 U/L (21-72); ALBUMIN 3.6 g/dL (3.5-5.0); ALKALINE PHOSPHATASE 78 U/L (38-126); ANION GAP 11 (5-19); ASPARTATE AMINO TRANSFERASE 19 U/L (17-59); BILIRUBIN,TOTAL 0.2 mg/dL (0.2-1.3); BLOOD UREA NITROGEN 5 mg/dL (7-20); CALCIUM 8.9 mg/dL (8.4-10.2); CARBON DIOXIDE 26 mmol/L (22-30); CHLORIDE 100 mmol/L (98-107); GLUCOSE 89 mg/dL (75-110); POTASSIUM 4.8 mmol/L (3.6-5.0); SODIUM 137.2 mmol/L (137-145); TOTAL PROTEIN 6.2 g/dL (6.3-8.2)
[2017-12-10 17:11] LABS: ABSOLUTE BASOPHILS # (AUTO) 0.1 10^3/uL (0.0-0.2); ABSOLUTE EOSINOPHILS # (AUTO) 0.2 10^3/uL (0.0-0.6); ABSOLUTE LYMPHOCYTES (AUTO) 1.8 10^3/uL (0.5-4.7); ABSOLUTE MONOCYTES (AUTO) 0.5 10^3/uL (0.1-1.4); ABSOLUTE NEUT (AUTO) 4.8 10^3/uL (1.7-8.2); BASOPHILS % (AUTO) 0.7 % (0-2); HEMATOCRIT 28.2 % (37.9-51.0); HEMOGLOBIN 9.4 g/dL (13.5-17.0); LYMPHOCYTES % (AUTO) 24.8 % (13-45); MEAN CORPUSCULAR HEMOGLOBIN 27.8 pg (27.0-33.4); MEAN CORPUSCULAR HGB CONC 33.5 g/dL (32.0-36.0); MEAN CORPUSCULAR VOLUME 83 fl (80-97); MONOCYTES % (AUTO) 6.8 % (3-13); PLATELET COUNT 392 10^3/uL (150-450); RED CELL DISTRIBUTION WIDTH 15.9 % (11.5-14.0); SEGMENTED NEUTROPHILS % (AUTO) 64.7 % (42-78); TOTAL CELLS COUNTED % (AUTO) 100 %; WHITE BLOOD COUNT 7.4 10^3/uL (4.0-10.5)
[2017-12-10] MEDS: OLANZAPINE 5 MG TABLET PO SCH (21:57)
[2017-12-10] MEDS: QUETIAPINE FUMARATE 100 MG TABLET PO SCH (21:57)
[2017-12-10] MEDS: TRAZODONE HCL 50 MG TABLET PO SCH (21:57)
[2017-12-11 04:25] LABS: ABSOLUTE EOSINOPHILS # (AUTO) 0.2 10^3/uL (0.0-0.6); ABSOLUTE LYMPHOCYTES (AUTO) 1.6 10^3/uL (0.5-4.7); ABSOLUTE MONOCYTES (AUTO) 0.5 10^3/uL (0.1-1.4); ABSOLUTE NEUT (AUTO) 2.4 10^3/uL (1.7-8.2); BASOPHILS % (AUTO) 0.7 % (0-2); EOSINOPHILS % (AUTO) 4.6 % (0-6); HEMATOCRIT 25.6 % (37.9-51.0); HEMOGLOBIN 8.6 g/dL (13.5-17.0); LYMPHOCYTES % (AUTO) 34.2 % (13-45); MEAN CORPUSCULAR HEMOGLOBIN 27.4 pg (27.0-33.4); MEAN CORPUSCULAR HGB CONC 33.7 g/dL (32.0-36.0); MEAN CORPUSCULAR VOLUME 81 fl (80-97); MONOCYTES % (AUTO) 10.6 % (3-13); PLATELET COUNT 330 10^3/uL (150-450); RED BLOOD COUNT 3.14 10^6/uL (4.35-5.55); RED CELL DISTRIBUTION WIDTH 16.2 % (11.5-14.0); SEGMENTED NEUTROPHILS % (AUTO) 49.9 % (42-78); TOTAL CELLS COUNTED % (AUTO) 100 %; WHITE BLOOD COUNT 4.7 10^3/uL (4.0-10.5)
[2017-12-11 04:46] LABS: ALANINE AMINOTRANSFERASE 25 U/L (21-72); ALBUMIN 3.1 g/dL (3.5-5.0); ALKALINE PHOSPHATASE 72 U/L (38-126); ANION GAP 5 (5-19); ASPARTATE AMINO TRANSFERASE 19 U/L (17-59); BILIRUBIN,DIRECT 0.2 mg/dL (0.0-0.4); BILIRUBIN,TOTAL 0.3 mg/dL (0.2-1.3); BLOOD UREA NITROGEN 4 mg/dL (7-20); CALCIUM 8.8 mg/dL (8.4-10.2); CARBON DIOXIDE 28 mmol/L (22-30); CHLORIDE 105 mmol/L (98-107); GLUCOSE 81 mg/dL (75-110); POTASSIUM 4.6 mmol/L (3.6-5.0); SODIUM 138.4 mmol/L (137-145); TOTAL PROTEIN 5.6 g/dL (6.3-8.2)
[2017-12-11] MEDS: ESCITALOPRAM OXALATE 10 MG TABLET PO SCH (09:05)
[2017-12-11] MEDS: MECLIZINE HCL 25 MG TABLET PO SCH ×2 (09:05→17:23)
[2017-12-11] MEDS: LANSOPRAZOLE 30 MG TAB.RAP.DR PO SCH ×2 (09:06→17:23)
[2017-12-11] MEDS: DIAZEPAM 2 MG TABLET PO PRN ×2 (09:06→17:23)
[2017-12-11] MEDS ORDERED: PROPOFOL INJ 200 MG/20 ML VIAL IV ONE (11:22)
--- NOTE | 2017-12-11 14:09 | Operative Report ---
Operative Report DATE OF SURGERY: 12/11/17 Operative Report: The risks, benefits and alternatives of the procedure including the risk of bleeding, perforation requiring surgery are explained to the patient in detail and informed consent is obtained. Propofol medication is administered. Timeout was called. Rectal examination is done which did not reveal any masses, tears or fissures. An Olympus videoscope was inserted the patient's rectum. Patient has a redundant colon. Prep was good. Scope was ultimately advanced into the cecum. There is a redundant colon. Cecum was identified by the usual anatomical landmarks including the ileocecal valve as well as appendiceal office. Photodocumentation is obtained. Scope was then sequentially pulled back via the rest segments of the colon including the ascending colon, hepatic flexure, transverse colon, splenic flexure, descending colon and finally in to the rectosigmoid portions of the colon. Retroflexion maneuvers performed. Scope withdrawal time 10 minutes. PREOPERATIVE DIAGNOSIS: Possible GI bleed. Change of bowel habits POSTOPERATIVE DIAGNOSIS: Redundant colon. No active bleeding. Internal hemorrhoids. Random biopsies taken in the right side of the colon to rule out microscopic, collagenous colitis OPERATION: Colonoscopy with biopsy SURGEON: GODFREY ALLEN ANESTHESIA: LMAC TISSUE REMOVED OR ALTERED: As noted above ESTIMATED BLOOD LOSS: None. INTRAOPERATIVE FINDINGS: As noted above. PROCEDURE: Patient tolerated procedure well. No immediate postprocedure complications are noted. Patient is a back to his room in good condition Resume previous diet Okay to be discharged Follow-up with bariatric surgeon Surveillance colonoscopy in 10 years
--- NOTE | 2017-12-11 15:17 | Physician Advisory Note ---
Physician Advisor ProgressNote .: Pursuant to the plan for [facility], I have reviewed the medical record for this patient. Physician Advisor Statement: Please consider documenting, if you agree: 1. "Anemia of acute blood loss due to GIB due to anastomotic ulcer" Thanks! CK
[2017-12-11] MEDS ORDERED: PROMETHAZINE HCL INJ 25 MG/1 ML VIAL ONE (20:14)
[2017-12-11] MEDS: BUTALB/ACETAMINOPHEN/CAFFEINE 1 TAB EACH PO PRN (20:20)
[2017-12-11] MEDS: PROMETHAZINE HCL INJ 25 MG/1 ML VIAL IV PRN (20:20)
--- NOTE | 2017-12-11 20:58 | PDOC DISCHARGE SUMMARY ---
General - Admit/Disc Date/PCP Admission Date/Primary Care Provider: 12/09/17 15:08 MERYL ORNELAS MD Discharge Date: 12/12/17 - Discharge Diagnosis (1) Hemorrhage of anastomosis due to ulcer Is this a current diagnosis for this admission?: Yes (2) Vertigo, labyrinthine Is this a current diagnosis for this admission?: Yes (3) GI (gastrointestinal bleed) Is this a current diagnosis for this admission?: Yes - Additional Information Resuscitation Status: Full Code Home Medications: Escitalopram Oxalate [Lexapro] 40 mg PO DAILY 03/26/17 Olanzapine [Zyprexa] 20 mg PO QHS 03/26/17 Quetiapine Fumarate [Seroquel] 600 mg PO QHS 03/26/17 Trazodone HCl [Desyrel] 100 mg PO QHS 03/26/17 Linaclotide [Linzess] 290 mcg PO DAILY 09/23/17 Meclizine HCl 25 mg PO BID 12/09/17 Omeprazole 40 mg PO BID 12/09/17 History of Present Illness History of Present Illness: YESSY ALMODOVAR is a 52 year old male he has a history of bleeding anastomotic ulcer, he came to the emergency room for evaluation of GI bleed, vomiting and dizziness. He presented initially to the emergency room on November 26, 2017 for evaluation of GI bleed at that time his hemoglobin dropped from 10-7 within a span of 3-5 hours, he was transfused with packed red blood cells and was transferred to [facility] where he underwent an upper endoscopy and lower endoscopy, he was found to have a bleeding ulcer in his stomach that was clipped. He stayed for 5 days in the [facility] where he was transferred to, he stated he was doing well until yesterday when he felt weak and he had 2 bloody bowel movement he was concerned that he is bleeding again. This has been ongoing for a while now he has had multiple GI endoscopy for evaluation of GI bleed, the plan as I understood it was that he was to have revision of the gastric bypass surgery, this was planned over a year ago but for some reason this has not been done. He continued to have GI bleed from this anastomotic ulcer, he was seen by GI Dr. Pastrana because of his concern for aortic bleed he underwent emergency upper endoscopy, he was found to have gastric ulcer at the entrance of the efferent loop of the small intestine the Endo Clip is still present there was no active bleeding the plan is for colonoscopy after the colon is prepped, this would take at least 24 hours. Patient looks extremely pale though the hemoglobin is reasonable at 11.2, he also have chronic vertigo, he said the vertigo is controlled by Valium, he has tried meclizine without any good response. He is status post right below-knee amputation, he was staying until recently at assisted living facility,[facility], he now lives at home. Hospital Course Hospital Course: Patient was admitted for the management of acute GI bleed due to anastomotic ulcer, he was seen by GI Dr. Pastrana he underwent upper endoscopy and colonoscopy no active bleeding was found, ulcer was found in the stomach, he did not require blood transfusion Physical Exam Vital Signs: Temp Pulse Resp BP Pulse Ox 98.1 F 76 16 118/71 100 12/11/17 15:20 12/11/17 15:20 12/11/17 15:20 12/11/17 15:20 12/11/17 15:20 Intake & Output 12/10/17 12/11/17 12/12/17 06:59 06:59 06:59 Intake Total 726 2385 1621 Output Total 9791 2185 2455 Balance -923 -2011 -427 Weight 86.5 kg 84.6 kg General appearance: PRESENT: no acute distress Eye exam: PRESENT: PERRLA Respiratory exam: PRESENT: clear to auscultation jorge Cardiovascular exam: PRESENT: +S1, +S2 GI/Abdominal exam: PRESENT: soft Extremities exam: PRESENT: right BKA Neurological exam: PRESENT: alert Results Laboratory Results: 12/11/17 04:13 12/11/17 04:13 12/11/17 12/11/17 04:13 04:13 WBC 4.7 RBC 3.14 L Hgb 8.6 L Hct 25.6 L MCV 81 MCH 27.4 MCHC 33.7 RDW 16.2 H Plt Count 330 Seg Neutrophils % 49.9 Lymphocytes % 34.2 Monocytes % 10.6 Eosinophils % 4.6 Basophils % 0.7 Absolute Neutrophils 2.4 Absolute Lymphocytes 1.6 Absolute Monocytes 0.5 Absolute Eosinophils 0.2 Absolute Basophils 0.0 Sodium 138.4 Potassium 4.6 Chloride 105 Carbon Dioxide 28 Anion Gap 5 BUN 4 L Creatinine 0.58 Est GFR ( Amer) > 60 Est GFR (Non-Af Amer) > 60 Glucose 81 Calcium 8.8 Total Bilirubin 0.3 AST 19 ALT 25 Alkaline Phosphatase 72 Total Protein 5.6 L Albumin 3.1 L Impressions: Chest X-Ray 12/09/17 10:05 IMPRESSION: NO ACUTE RADIOGRAPHIC FINDING IN THE CHEST. GAS IN THE UPPER ABDOMEN CONSISTENT WITH BOWEL GAS. Qualifiers - * PATIENT BEING DISCHARGED WITH ANY OF THE FOLLOWING DIAGNOSIS: No
[2017-12-11] MEDS: OLANZAPINE 5 MG TABLET PO SCH (21:23)
[2017-12-11] MEDS: TRAZODONE HCL 50 MG TABLET PO SCH (21:24)
[2017-12-11] MEDS: QUETIAPINE FUMARATE 100 MG TABLET PO SCH (21:24)
[2017-12-12] MEDS: DIAZEPAM 2 MG TABLET PO PRN (06:02)
[2017-12-12] MEDS: PROMETHAZINE HCL INJ 25 MG/1 ML VIAL IV PRN (06:02)
[2017-12-12] MEDS: BUTALB/ACETAMINOPHEN/CAFFEINE 1 TAB EACH PO PRN (08:44)
[2017-12-12] MEDS: MECLIZINE HCL 25 MG TABLET PO SCH (10:14)
[2017-12-12] MEDS: LANSOPRAZOLE 30 MG TAB.RAP.DR PO SCH (10:14)
[2017-12-12] MEDS: ESCITALOPRAM OXALATE 10 MG TABLET PO SCH (10:14)
[2017-12-12 10:32] VITALS: BP 112/68
== END 2017-12-12 11:23 | disposition home or self-care (01) | DRG 919 ==
LOC: ER 09:27 → EH 15:08 → 3W 18:58
PROVIDERS: ADMIT Internal Medicine; ATTEND Internal Medicine
PROC: 0DD68ZX Extraction of Stomach, Via Natural or Artificial Opening Endoscopic, Diagnostic (ICD-10-PCS; principal; 2017-12-09 18:00)
PROC: 0DDF8ZX Extraction of Right Large Intestine, Via Natural or Artificial Opening Endoscopic, Diagnostic (ICD-10-PCS; 2017-12-11)
DX: K91.840 Postprocedural hemorrhage of a digestive system organ or structure following a digestive system procedure (principal); K28.4 Chronic or unspecified gastrojejunal ulcer with hemorrhage; K95.89 Other complications of other bariatric procedure; K29.60 Other gastritis without bleeding; I10 Essential (primary) hypertension; E11.9 Type 2 diabetes mellitus without complications; K21.9 Gastro-esophageal reflux disease without esophagitis; H81.09 Meniere's disease, unspecified ear; R19.7 Diarrhea, unspecified; F31.9 Bipolar disorder, unspecified; Z98.84 Bariatric surgery status; Z89.511 Acquired absence of right leg below knee
CPT/HCPCS: 36415; 43239; 45380; 71045; 80053; 811; 82272; 83690; 84484; 85025; 85610; 85730; 86850; 86900; 86901; 88305; 88342; 93005; 93010; 96361; 96365; 96375; 96376; 99285; J0171; J1200; J1610; J2250; J2310; J2405; J2550; J2704; J3010; J3360; J3490; J7030; S0028; S0164

== ENCOUNTER 2017-12-24 06:51 | Emergency (ER) | payer MEDICARE, MEDICAID ==
--- NOTE | 2017-12-24 06:55 | ER Document Report ---
ED General - General Stated Complaint: DIZZINESS Time Seen by Provider: 12/24/17 06:54 Notes: 52-year-old male to the emergency department status post dizzy spell and not feeling well. Patient has a history of GI bleed status post gastric bypass surgery. Was recently admitted for GI bleed. States that he knows he has an ulcer. This morning he fell. Has some mild pain in the left elbow. Denies hitting his head. Denies any chest pain or shortness of breath. Has some mild abdominal discomfort. TRAVEL OUTSIDE OF THE [place] IN LAST 30 DAYS: No - HPI Onset: Just prior to arrival Onset/Duration: Sudden - Related Data Allergies/Adverse Reactions: aripiprazole [From AbiPerk] Adverse Reaction (Severe, Verified 12/24/17 09:48) "uncontrollable muscle tremors" Past Medical History - General Information source: Patient, [facility], [facility] Records - Social History Smoking Status: Never Smoker Frequency of alcohol use: None Drug Abuse: None Lives with: Alone Family History: Reviewed & Not Pertinent, CAD, Hypertension, Other - ulcers father and sister - Past Medical History Cardiac Medical History: Reports: Hx Hypertension Denies: Hx Coronary Artery Disease, Hx Heart Attack, Hx Heart Murmur Pulmonary Medical History: Denies: Hx Asthma, Hx Bronchitis, Hx COPD, Hx Pneumonia Neurological Medical History: Denies: Hx Cerebrovascular Accident, Hx Seizures Endocrine Medical History: Reports: Hx Diabetes Mellitus Type 2 - Since gastric bypass has been able to stop all medications Renal/ Medical History: Reports: Hx Kidney Stones. Denies: Hx Peritoneal Dialysis GI Medical History: Reports: Hx Gastroesophageal Reflux Disease, Hx Ulcer - 4x. Denies: Hx Pancreatitis Musculoskeletal Medical History: Reports Hx Arthritis Skin Medical History: Reports Hx MRSA Psychiatric Medical History: Reports: Hx Bipolar Disorder, Hx Depression Traumatic Medical History: Reports: Hx Fractures - RT ankle 2010 Infectious Medical History: Past Surgical History: Reports: Hx Abdominal Surgery - Repair of complications from gastric bypass, Hx Appendectomy - 1975, Hx Bowel Surgery - bowel perforation 09/26/2015, May 2016, Hx Gastric Bypass Surgery - 02/19/13, Hx Orthopedic Surgery - Right below-knee amputation, Hx Tonsillectomy - 1978 - Immunizations Immunizations up to date: Yes Hx Diphtheria, Pertussis, Tetanus Vaccination: Yes Hx Pneumococcal Vaccination: 03/03/11 Review of Systems - Review of Systems Notes: Constitutional: denies: Chills, Diaphoresis, Fever, Malaise, Weakness EENT: denies: Eye discharge, Blurred vision, Tearing, Double vision, Nose congestion, Nose discharge, Throat swelling, Mouth pain Cardiovascular: denies: Palpitations, Heart racing, Orthopnea, Dyspnea, Chest pain. Complaining of some syncope and dizziness Respiratory: denies: Cough, Hurts to breathe, Wheezing, Shortness of breath Gastrointestinal: denies: Abdominal pain, Diarrhea, Nausea, Vomiting, Black stools, bright red blood in stool Genitourinary: denies: Burning, Dysuria, Discharge, Frequency, Flank pain, Hematuria Musculoskeletal: denies: Joint pain, Joint swelling, Muscle pain, Muscle stiffness, back pain. Does have some mild left elbow pain. Hematologic/Lymphatic: denies: Anemia, Easy bleeding, Easy bruising, Blood clots Neurological/Psychological: denies: Confusion, Dementia, Depression, Loss of consciousness Skin: No lesions, no masses, no skin breakdown, no abscesses Physical Exam - Vital signs Vitals: Resp 16 12/24/17 07:01 Interpretation: Normal - General General appearance: Appears well, Alert - HEENT Head: Normocephalic, Atraumatic Eyes: Normal Pupils: PERRL - Respiratory Respiratory status: No respiratory distress Chest status: Nontender Breath sounds: Normal Chest palpation: Normal - Cardiovascular Rhythm: Regular Heart sounds: Normal auscultation Murmur: No - Abdominal Inspection: Normal Distension: No distension Bowel sounds: Normal Tenderness: Nontender Organomegaly: No organomegaly - Rectal Tenderness: No Hemorrhoids: None Prostate: Normal - Back Back: Normal, Nontender - Extremities General upper extremity: Normal inspection, Nontender, Normal color, Normal ROM , Normal temperature General lower extremity: Other - BKA right lower extremity. Left lower extremity unremarkable.. No: Lilly's sign Elbow: Other - Mild tenderness to palpation of the left olecranon - Neurological Neuro grossly intact: Yes Cognition: Normal Orientation: AAOx4 [place] Coma Scale Eye Opening: Spontaneous [place] Coma Scale Verbal: Oriented [place] Coma Scale Motor: Obeys Commands [place] Coma Scale Total: 15 Speech: Normal Motor strength normal: LUE, RUE, LLE, RLE Sensory: Normal - Psychological Associated symptoms: Normal affect, Normal mood - Skin Skin Temperature: Warm Skin Moisture: Dry Skin Color: Pale Course - Re-evaluation Re-evalutation: 12/24/17 11:52 I did speak with patient's primary care doctor. He is not concerned about his blood counts. He has had chronic issues with his gastric bypass surgery and has had a recent scope done in the last couple of weeks which was normal. He wants to follow-up with the patient in the clinic and recommends discharging him. Does not meet criteria in his opinion for admission. It does not appear that patient has a GI bleed as his occult blood was negative. He did receive a second CBC which was slightly lowered but this was after a fluid boluses of 1 L. Currently at this time patient is resting comfortably. His blood pressure is 103/73 with a heart rate of 66. Will discharge at this time in stable condition. 12/24/17 11:59 Laboratory 12/24/17 12/24/17 12/24/17 07:07 07:07 07:07 WBC 4.1 RBC 4.10 L Hgb 10.1 L Hct 30.6 L MCV 75 L D MCH 24.6 L MCHC 32.9 RDW 18.6 H Plt Count 267 Seg Neutrophils % 56.4 Lymphocytes % 27.5 Monocytes % 9.3 Eosinophils % 6.0 Basophils % 0.8 Absolute Neutrophils 2.3 Absolute Lymphocytes 1.1 Absolute Monocytes 0.4 Absolute Eosinophils 0.2 Absolute Basophils 0.0 PT 13.1 INR 0.94 APTT 31.2 Sodium 138.0 Potassium 4.5 Chloride 99 Carbon Dioxide 27 Anion Gap 12 BUN 15 Creatinine 0.72 Est GFR ( Amer) > 60 Est GFR (Non-Af Amer) > 60 Glucose 82 Calcium 9.9 Total Bilirubin 0.3 Direct Bilirubin 0.0 Neonat Total Bilirubin Not Reportable Neonat Direct Bilirubin Not Reportable Neonat Indirect Bili Not Reportable AST 17 ALT 21 Alkaline Phosphatase 77 Creatine Kinase 23 L CK-MB (CK-2) Troponin I Total Protein 7.2 Albumin 4.7 Stool Occult Blood Blood Type Antibody Screen 12/24/17 12/24/17 12/24/17 07:07 07:15 07:27 WBC RBC Hgb Hct MCV MCH MCHC RDW Plt Count Seg Neutrophils % Lymphocytes % Monocytes % Eosinophils % Basophils % Absolute Neutrophils Absolute Lymphocytes Absolute Monocytes Absolute Eosinophils Absolute Basophils PT INR APTT Sodium Potassium Chloride Carbon Dioxide Anion Gap BUN Creatinine Est GFR ( Amer) Est GFR (Non-Af Amer) Glucose Calcium Total Bilirubin Direct Bilirubin Neonat Total Bilirubin Neonat Direct Bilirubin Neonat Indirect Bili AST ALT Alkaline Phosphatase Creatine Kinase CK-MB (CK-2) 0.42 Troponin I < 0.012 Total Protein Albumin Stool Occult Blood NEGATIVE Blood Type Cancelled Antibody Screen Cancelled 12/24/17 12/24/17 07:53 10:13 WBC 4.5 RBC 3.63 L Hgb 9.0 L Hct 27.0 L MCV 75 L MCH 24.9 L MCHC 33.4 RDW 18.3 H Plt Count 244 Seg Neutrophils % Lymphocytes % Monocytes % Eosinophils % Basophils % Absolute Neutrophils Absolute Lymphocytes Absolute Monocytes Absolute Eosinophils Absolute Basophils PT INR APTT Sodium Potassium Chloride Carbon Dioxide Anion Gap BUN Creatinine Est GFR ( Amer) Est GFR (Non-Af Amer) Glucose Calcium Total Bilirubin Direct Bilirubin Neonat Total Bilirubin Neonat Direct Bilirubin Neonat Indirect Bili AST ALT Alkaline Phosphatase Creatine Kinase CK-MB (CK-2) Troponin I Total Protein Albumin Stool Occult Blood Blood Type O POSITIVE Antibody Screen NEGATIVE Chest X-Ray 12/24/17 06:56 IMPRESSION: No acute cardiopulmonary findings. Elbow X-Ray 12/24/17 08:16 IMPRESSION: No elbow joint effusion or acute fracture. Mild dorsal elbow soft tissue swelling. - Vital Signs Vital signs: Temp Pulse Resp BP Pulse Ox 98.0 F 17 106/79 100 12/24/17 10:22 12/24/17 10:12 12/24/17 10:12 12/24/17 10:12 - Laboratory Result Diagrams: 12/24/17 10:13 12/24/17 07:07 Laboratory results interpreted by me: 12/24/17 12/24/17 12/24/17 07:07 07:07 10:13 RBC 4.10 L 3.63 L Hgb 10.1 L 9.0 L Hct 30.6 L 27.0 L MCV 75 L D 75 L MCH 24.6 L 24.9 L RDW 18.6 H 18.3 H Creatine Kinase 23 L - EKG Interpretation by Nm EKG shows normal: Sinus rhythm, Mcandrews, Intervals, QRS Complexes, ST-T Waves Discharge - Discharge Clinical Impression: Chronic vertigo, Microcytic anemia Condition: Good Disposition: HOME, SELF-CARE Instructions: Anemia ([facility]), Dizziness ([facility]) Prescriptions: Diazepam [Valium 5 mg Tablet] 5 mg PO TID PRN #15 tablet PRN Reason: Dizziness Referrals: MERYL ORNELAS MD [Primary Care Provider] - 12/24/17 8:00 am
[2017-12-24 07:33] LABS: ABSOLUTE EOSINOPHILS # (AUTO) 0.2 10^3/uL (0.0-0.6); ABSOLUTE LYMPHOCYTES (AUTO) 1.1 10^3/uL (0.5-4.7); ABSOLUTE MONOCYTES (AUTO) 0.4 10^3/uL (0.1-1.4); ABSOLUTE NEUT (AUTO) 2.3 10^3/uL (1.7-8.2); BASOPHILS % (AUTO) 0.8 % (0-2); HEMATOCRIT 30.6 % (37.9-51.0); HEMOGLOBIN 10.1 g/dL (13.5-17.0); LYMPHOCYTES % (AUTO) 27.5 % (13-45); MEAN CORPUSCULAR HEMOGLOBIN 24.6 pg (27.0-33.4); MEAN CORPUSCULAR HGB CONC 32.9 g/dL (32.0-36.0); MONOCYTES % (AUTO) 9.3 % (3-13); PLATELET COUNT 267 10^3/uL (150-450); RED CELL DISTRIBUTION WIDTH 18.6 % (11.5-14.0); SEGMENTED NEUTROPHILS % (AUTO) 56.4 % (42-78); TOTAL CELLS COUNTED % (AUTO) 100 %; WHITE BLOOD COUNT 4.1 10^3/uL (4.0-10.5)
[2017-12-24 07:34] LABS: INTERNATIONAL RATION (INR) 0.94; PROTHROMBIN TIME 13.1 SEC (11.4-15.4)
--- NOTE | 2017-12-24 07:34 | RADIOLOGY REPORT (SQ) ---
EXAM DESCRIPTION: XR CHEST 1 VIEW COMPLETED DATE/TME: 12/24/2017 06:56 CLINICAL HISTORY: 52 years Male, sob COMPARISON: None. NUMBER OF VIEWS/TECHNIQUE: 1/AP FINDINGS: Adequate lung volume, clear parenchyma, normal cardiac silhouette, and intact bony thorax. IMPRESSION: No acute cardiopulmonary findings.
[2017-12-24 07:35] LABS: MEAN CORPUSCULAR VOLUME 75 fl (80-97); PARTIAL THROMBOPLASTIN TIME 31.2 SEC (23.5-35.8)
[2017-12-24 07:36] LABS: ALANINE AMINOTRANSFERASE 21 U/L (21-72); ALBUMIN 4.7 g/dL (3.5-5.0); ALKALINE PHOSPHATASE 77 U/L (38-126); ANION GAP 12 (5-19); ASPARTATE AMINO TRANSFERASE 17 U/L (17-59); BILIRUBIN,TOTAL 0.3 mg/dL (0.2-1.3); BLOOD UREA NITROGEN 15 mg/dL (7-20); CALCIUM 9.9 mg/dL (8.4-10.2); CARBON DIOXIDE 27 mmol/L (22-30); CHLORIDE 99 mmol/L (98-107); CREATINE KINASE 23 U/L (55-170); GLUCOSE 82 mg/dL (75-110); POTASSIUM 4.5 mmol/L (3.6-5.0); TOTAL PROTEIN 7.2 g/dL (6.3-8.2)
[2017-12-24] MEDS ORDERED: FAMOTIDINE INJ/PF 20 MG/2 ML SDV IV ONE (07:38)
[2017-12-24 07:48] LABS: CREATINE KINASE MB 0.42 ng/mL (<4.55)
[2017-12-24 07:49] LABS: TROPONIN I < 0.012 ng/mL
[2017-12-24] MEDS ORDERED: NORMAL SALINE 1000 ML 1,000 ML IV ONE (07:51)
[2017-12-24] MEDS ORDERED: LORAZEPAM INJ 2 MG/1 ML VIAL IV ONE (07:51)
--- NOTE | 2017-12-24 09:09 | RADIOLOGY REPORT (SQ) ---
EXAM DESCRIPTION: ELBOW LEFT AP/LATERAL COMPLETED DATE/TIME: 12/24/2017 8:36 am; 12/24/2017 7:52 am REASON FOR STUDY: Internal and external obliques as per radiologist; pain COMPARISON: None. NUMBER OF VIEWS: Four views. TECHNIQUE: AP, lateral, and both oblique radiographic images acquired of the left elbow. LIMITATIONS: None. FINDINGS: MINERALIZATION: Normal. BONES: On the AP view of the left elbow, minimal articular surface irregularity of the radius is pres ent without discrete fracture line into the remainder the radial head. No discrete fracture line is identified on any of the other projections. Minimal bony spurring of the radial head and coronoid process of the ulna. Minimal bony spurring goldy ng the distal humerus lateral epicondyle JOINT: No elbow joint effusion SOFT TISSUES: Mild dorsal soft tissue swelling. No foreign body. OTHER: No other significant finding. IMPRESSION: No elbow joint effusion or acute fracture. Mild dorsal elbow soft tissue swelling. TECHNICAL DOCUMENTATION: JOB ID: [id number] [employer] All Rights Reserved Reading location - IP/workstation name: [email or web address]
--- NOTE | 2017-12-24 09:09 | RADIOLOGY REPORT (SQ) ---
EXAM DESCRIPTION: ELBOW LEFT AP/LATERAL COMPLETED DATE/TIME: 12/24/2017 8:36 am; 12/24/2017 7:52 am REASON FOR STUDY: Internal and external obliques as per radiologist; pain COMPARISON: None. NUMBER OF VIEWS: Four views. TECHNIQUE: AP, lateral, and both oblique radiographic images acquired of the left elbow. LIMITATIONS: None. FINDINGS: MINERALIZATION: Normal. BONES: On the AP view of the left elbow, minimal articular surface irregularity of the radius is pres ent without discrete fracture line into the remainder the radial head. No discrete fracture line is identified on any of the other projections. Minimal bony spurring of the radial head and coronoid process of the ulna. Minimal bony spurring goldy ng the distal humerus lateral epicondyle JOINT: No elbow joint effusion SOFT TISSUES: Mild dorsal soft tissue swelling. No foreign body. OTHER: No other significant finding. IMPRESSION: No elbow joint effusion or acute fracture. Mild dorsal elbow soft tissue swelling. TECHNICAL DOCUMENTATION: JOB ID: [id number] [employer]- All Rights Reserved Reading location - IP/workstation name: [email or web address]
[2017-12-24] MEDS ORDERED: DIAZEPAM 5 MG TABLET PO ONE (10:04)
[2017-12-24] MEDS ORDERED: ONDANSETRON 4 MG TAB.RAPDIS PO ONE (10:04)
[2017-12-24 10:39] LABS: MEAN CORPUSCULAR HEMOGLOBIN 24.9 pg (27.0-33.4); MEAN CORPUSCULAR HGB CONC 33.4 g/dL (32.0-36.0); MEAN CORPUSCULAR VOLUME 75 fl (80-97); PLATELET COUNT 244 10^3/uL (150-450); RED BLOOD COUNT 3.63 10^6/uL (4.35-5.55); RED CELL DISTRIBUTION WIDTH 18.3 % (11.5-14.0); WHITE BLOOD COUNT 4.5 10^3/uL (4.0-10.5)
--- NOTE | 2017-12-24 10:46 | EKG REPORT ---
SEVERITY:- NORMAL ECG - SINUS RHYTHM : Confirmed by: Ashley Castellanos 24-Dec-2017 10:45:39
[2017-12-24] MEDS ORDERED: ACETAMINOPHEN 325 MG TABLET PO ONE (11:20)
[2017-12-24] MEDS ORDERED: PANTOPRAZOLE SODIUM 40 MG VIAL IV ONE (11:21)
[2017-12-24] MEDS ORDERED: CYANOCOBALAMIN (VITAMIN B-12) INJ 1000 MCG/1 ML VIAL IM ONE (11:47)
[2017-12-24 12:07] VITALS: BP 102/71
== END 2017-12-24 12:20 | disposition home or self-care (01) ==
LOC: ER 06:51
DX: R42 Dizziness and giddiness (principal); D50.9 Iron deficiency anemia, unspecified; M25.522 Pain in left elbow; R10.9 Unspecified abdominal pain; W19.XXXA Unspecified fall, initial encounter; E11.9 Type 2 diabetes mellitus without complications; Z98.84 Bariatric surgery status
CPT/HCPCS: 93005; 99285; 96372; 96361; 96374; 96375; 86900; 86901; 36415; 82553; 86850; 82550; 85025; 85027; 85610; 85730; 82272; 80053; 84484; 71045; 73070; 93010; A9270 ×3; J3420; J2060; C9113; J7030; S0028; S0119; S0164

== ENCOUNTER 2018-01-10 06:50 | Inpatient (IN) | payer MEDICARE, MEDICAID ==
[2018-01-10] MEDS ORDERED: NORMAL SALINE 1000 ML 1,000 ML IV ONE ×2 (07:15→10:32)
[2018-01-10 08:30] LABS: HEMATOCRIT 28.8 % (37.9-51.0); HEMOGLOBIN 9.2 g/dL (13.5-17.0); MEAN CORPUSCULAR HEMOGLOBIN 22.1 pg (27.0-33.4); MEAN CORPUSCULAR HGB CONC 32.1 g/dL (32.0-36.0); PLATELET COUNT 404 10^3/uL (150-450); RED BLOOD COUNT 4.17 10^6/uL (4.35-5.55); RED CELL DISTRIBUTION WIDTH 21.2 % (11.5-14.0)
[2018-01-10 08:34] LABS: ALANINE AMINOTRANSFERASE 17 U/L (21-72); ALBUMIN 4.2 g/dL (3.5-5.0); ALKALINE PHOSPHATASE 61 U/L (38-126); ANION GAP 11 (5-19); ASPARTATE AMINO TRANSFERASE 17 U/L (17-59); BILIRUBIN,DIRECT 0.2 mg/dL (0.0-0.4); BILIRUBIN,TOTAL 0.3 mg/dL (0.2-1.3); BLOOD UREA NITROGEN 14 mg/dL (7-20); CALCIUM 9.9 mg/dL (8.4-10.2); CARBON DIOXIDE 29 mmol/L (22-30); CHLORIDE 100 mmol/L (98-107); GLUCOSE 88 mg/dL (75-110); LIPASE 94.5 U/L (23-300); TOTAL PROTEIN 7.1 g/dL (6.3-8.2)
--- NOTE | 2018-01-10 08:49 | RADIOLOGY REPORT (SQ) ---
EXAM DESCRIPTION: CT HEAD WITHOUT COMPLETED DATE/TIME: 01/10/2018 8:38 am REASON FOR STUDY: Fall/LOC/ COMPARISON: 11/26/2017 TECHNIQUE: Axial images acquired through the brain without intravenous contrast. Images reviewed wi th bone, brain and subdural windows. Additional sagittal and coronal reconstructions were generated. Images stored on PACS. All CT scanners at this facility use dose modulation, iterative reconstruction, and/or weight based d osing when appropriate to reduce radiation dose to as low as reasonably achievable (ALARA). [facility]: Dose Right [facility]: CareDose [facility]: Dose Right [facility]: Teradose 4D [facility]: Smart [employer] RADIATION DOSE: CT Rad equipment meets quality standard of care and radiation dose reduction techniq ues were employed. CTDIvol: 53.2 mGy. DLP: 1150 mGy-cm. mGy. LIMITATIONS: None. FINDINGS: VENTRICLES: Normal size and contour. CEREBRUM: No masses. No hemorrhage. No midline shift. No evidence for acute infarction. Normal gra y/white matter differentiation. No areas of low density in the white matter. CEREBELLUM: No masses. No hemorrhage. No alteration of density. No evidence for acute infarction. EXTRAAXIAL SPACES: No fluid collections. No masses. ORBITS AND GLOBE: No intra- or extraconal masses. Normal contour of globe without masses. CALVARIUM: No fracture. PARANASAL SINUSES: No fluid or mucosal thickening. SOFT TISSUES: No mass or hematoma. OTHER: No other significant finding. IMPRESSION: NORMAL BRAIN CT WITHOUT CONTRAST. EVIDENCE OF ACUTE STROKE: NO. COMMENT: Quality ID # [id number]: Final reports with documentation of one or more dose reduction techniques (e.g., Automated exposure control, adjustment of the mA and/or kV according to patient size, use of iterative reconstruction technique) TECHNICAL DOCUMENTATION: JOB ID: [id number] [employer]- All Rights Reserved Reading location - IP/workstation name: [email or web address]
[2018-01-10 08:55] LABS: MEAN CORPUSCULAR VOLUME 69 fl (80-97)
[2018-01-10 08:59] LABS: ABSOLUTE LYMPHOCYTES# (MANUAL) 1.3 10^3/uL (0.5-4.7); ABSOLUTE MONOCYTES # (MANUAL) 0.6 10^3/uL (0.1-1.4); ABSOLUTE NEUTROPHILS# (MANUAL) 3.8 10^3/uL (1.7-8.2); BASOPHILS % (MANUAL) 1 % (0-2); EOSINOPHILS % (MANUAL) 4 % (0-6); LYMPHOCYTES % (MANUAL) 22 % (13-45); MONOCYTES % (MANUAL) 10 % (3-13); SEGMENTED NEUTROPHILS % (MAN) 63 % (42-78); TOTAL CELLS COUNTED 100
[2018-01-10 09:00] LABS: ANISOCYTOSIS 3+; HYPOCHROMASIA 1+; OVALOCYTES 1+; PLATELET COMMENT ADEQUATE; POIKILOCYTOSIS 1+; TEAR DROP CELLS SLIGHT
[2018-01-10 09:11] LABS: PROTHROMBIN TIME 13.7 SEC (11.4-15.4)
[2018-01-10 09:17] LABS: D-DIMER 0.32 ug/mL (0.00-0.50)
[2018-01-10] MEDS ORDERED: ACETAMINOPHEN 325 MG TABLET PO ONE (09:17)
[2018-01-10] MEDS ORDERED: DIAZEPAM INJ 10 MG/2 ML DISP.SYRIN IV ONE (10:33)
[2018-01-10 10:56] LABS: APPEARANCE,URINE SLIGHTLY-CLOUDY; BILIRUBIN,URINE NEGATIVE (NEGATIVE); COLOR,URINE YELLOW; GLUCOSE, URINE NEGATIVE (NEGATIVE); KETONES,URINE NEGATIVE (NEGATIVE); LEUKOCYTE ESTERASE,URINE NEGATIVE (NEGATIVE); NITRITE,URINE NEGATIVE (NEGATIVE); PROTEIN,URINE NEGATIVE (NEGATIVE); URINE SPECIFIC GRAVITY 1.019; UROBILINOGEN,URINE NEGATIVE mg/dL (<2.0)
--- NOTE | 2018-01-10 11:18 | ER Document Report ---
ED Fall - General Chief Complaint: Fall Stated Complaint: FALL Time Seen by Provider: 01/10/18 06:58 Mode of Arrival: Stretcher Information source: Patient Notes: Patient is a 52-year-old male returns emergency room with a syncopal episode. Patient states that he was getting up this morning to prepare for his 5:30 AM shift at [employer] when he was standing in the bathroom he got very dizzy the room spun and the next thing he knew he was on the floor. Patient states that he does not know how long he was out for but he said his sister told him about 4 -5 minutes. Patient has been having recent history of syncopal episodes and falls where he feels dizzy and then wakes up on the floor. This time he states he hit his head. He states he has a major headache. He has an extensive history of gastric ulcers. He has had a gastric bypass by Dr. Galo berkowitz in [place]. He states he has a scheduled surgical appointment with him on February 13 for reversal of his gastric bypass secondary to increasing amount of ulcers that he has had since having this procedure. Patient was seen here on about December 28 was diagnosed with vertigo and placed on meclizine. He does say that he got better for a while and then the intensity and frequency has increased substantially. He does complain that he is also had some recent bright red blood per rectum. TRAVEL OUTSIDE OF THE [place] IN LAST 30 DAYS: No - HPI Occurred: Just prior to arrival Where: Home Context: Fell from standing Associated symptoms: Lost consciousness, Dazed/confused, Became dizzy/fainted Location of injury/pain: Head Quality of pain: Throbbing Severity: Moderate Pain Level: 4 - Related data Allergies/Adverse Reactions: aripiprazole [From Abilify] Adverse Reaction (Severe, Verified 12/24/17 09:48) "uncontrollable muscle tremors" Past Medical History - General Information source: Patient, [facility] Records - Social History Smoking Status: Never Smoker Cigarette use (# per day): No Chew tobacco use (# tins/day): No Smoking Education Provided: No Frequency of alcohol use: Rare Drug Abuse: None Family History: Reviewed & Not Pertinent, CAD, Hypertension, Other - ulcers father and sister Patient has suicidal ideation: No Patient has homicidal ideation: No - Past Medical History Cardiac Medical History: Reports: Hx Hypertension Denies: Hx Coronary Artery Disease, Hx Heart Attack, Hx Heart Murmur Pulmonary Medical History: Denies: Hx Asthma, Hx Bronchitis, Hx COPD, Hx Pneumonia Neurological Medical History: Denies: Hx Cerebrovascular Accident, Hx Seizures Endocrine Medical History: Reports: Hx Diabetes Mellitus Type 2 - Since gastric bypass has been able to stop all medications Renal/ Medical History: Reports: Hx Kidney Stones. Denies: Hx Peritoneal Dialysis GI Medical History: Reports: Hx Gastroesophageal Reflux Disease, Hx Ulcer - 4x. Denies: Hx Pancreatitis Musculoskeletal Medical History: Reports Hx Arthritis Skin Medical History: Reports Hx MRSA Psychiatric Medical History: Reports: Hx Bipolar Disorder, Hx Depression Traumatic Medical History: Reports: Hx Fractures - RT ankle 2010 Infectious Medical History: Past Surgical History: Reports: Hx Abdominal Surgery - Repair of complications from gastric bypass, Hx Appendectomy - 1975, Hx Bowel Surgery - bowel perforation 09/26/2015, May 2016, Hx Gastric Bypass Surgery - 02/19/13, Hx Orthopedic Surgery - Right below-knee amputation, Hx Tonsillectomy - 1978 - Immunizations Immunizations up to date: Yes Hx Diphtheria, Pertussis, Tetanus Vaccination: Yes Hx Pneumococcal Vaccination: 03/03/11 Review of Systems - Review of Systems Constitutional: Malaise EENT: No symptoms reported Cardiovascular: Syncope, Lightheaded Respiratory: No symptoms reported Gastrointestinal: No symptoms reported Genitourinary: No symptoms reported Male Genitourinary: No symptoms reported Musculoskeletal: No symptoms reported Skin: No symptoms reported Hematologic/Lymphatic: No symptoms reported Neurological/Psychological: See HPI, Lost consciousness, Headaches -: Yes All other systems reviewed and negative Physical Exam - Vital signs Vitals: Temp Resp BP Pulse Ox 98.2 F 19 109/71 100 01/10/18 06:52 01/10/18 06:52 01/10/18 06:52 01/10/18 06:52 Interpretation: Hypotensive - Notes Notes: PHYSICAL EXAMINATION: GENERAL: Patient is a frail-appearing 52-year-old male. His appearance is pale at this time. He appears to have a hard time focusing. Movement is slow. HEAD: Atraumatic, normocephalic. EYES: Pupils equal round and reactive to light, extraocular movements intact, conjunctiva are normal. ENT: Examination head and upper airway showed nasal mucosa to be normal in appearance. There is no congestion in bilateral nares. Examination of the ears shows TMs to be normal no bulging and no air-fluid levels noted and no retraction. Further investigation shows the exterior canals to be clean. No erythema noted. There is minimal cerumen and there is no obstruction of the TMs from cerumen occlusions. Continued examination of the oral cavity shows oral mucosa to be somewhat dry in presentation. Patient also appears to have some chapped lips as well. Airway is patent at this time.. NECK: Normal range of motion, supple without lymphadenopathy LUNGS: Breath sounds clear to auscultation bilaterally and equal. No wheezes rales or rhonchi. HEART: Regular rate and rhythm without murmurs ABDOMEN: Soft, nontender, nondistended abdomen. No guarding, no rebound. No masses appreciated. Female : deferred Musculoskeletal: Normal range of motion, no pitting or edema. No cyanosis. NEUROLOGIcal Normal speech, normal gait. Normal sensory, motor exams PSYCH: Flat affect SKIN: Warm, Dry, normal turgor, no rashes or lesions noted. Course - Re-evaluation Re-evalutation: 01/10/18 12:59 Patient's rectal exam was negative for blood. His entire time here been multiple times into check on him and talk to him. Patient still very pale appearing his hemoglobin when compared against the rest of his visits is actually above baseline at 9.2. All his other labs look relatively stable. Given he has had a complete loss of consciousness on his syncopal episode. A contact his primary care which is Dr. Rios for possible admission and monitoring tonight. Orthostatic blood pressures were normal but we could not standing up he was so off balance. They suggested Dr Rios that possibly may be transfused a unit of blood today to see if maybe that would give him some stability. Some people are just more sensitive to lower hemoglobins. 01/10/18 13:50 I discussed the case with the physician covering for Dr. Rios who is Dr. Pierre who is agreed to place patient hospital for syncopal episode and fall at home. He will further monitor patient when he gets to the floor. He is requested we put him in for observation telemetry - Vital Signs Vital signs: Temp Pulse Resp BP Pulse Ox 98.2 F 73 15 102/69 97 01/10/18 06:52 01/10/18 09:38 01/10/18 13:00 01/10/18 13:00 01/10/18 13:00 - Laboratory Result Diagrams: 01/10/18 08:04 01/10/18 08:04 Laboratory results interpreted by me: 01/10/18 01/10/18 01/10/18 08:04 08:04 10:30 RBC 4.17 L Hgb 9.2 L Hct 28.8 L MCV 69 L D MCH 22.1 L RDW 21.2 H ALT 17 L Urine Ascorbic Acid 40 H Discharge - Discharge Clinical Impression: Syncope and collapse Fall in home Qualifiers: Encounter type: initial encounter Qualified Code(s): W19.XXXA - Unspecified fall, initial encounter; Y92.009 - Unspecified place in unspecified non- institutional (private) residence as the place of occurrence of the external cause; Y92.009 - Unspecified place in unspecified non-institutional (private) residence as the place of occurrence of the external cause Condition: Stable Disposition: ADMITTED OBSERVATION Admitting Provider: Hospitalist - None. Your liver tests were done done I have that documented on Unit Admitted: Telemetry Referrals: MERYL RIOS MD [Primary Care Provider] - Follow up as needed
--- NOTE | 2018-01-10 11:51 | RADIOLOGY REPORT (SQ) ---
EXAM DESCRIPTION: CHEST SINGLE VIEW COMPLETED DATE/TIME: 01/10/2018 11:41 am REASON FOR STUDY: Syncope COMPARISON: 12/24/2017. NUMBER OF VIEWS: One view. TECHNIQUE: Single frontal radiographic view of the chest acquired. LIMITATIONS: None. FINDINGS: LUNGS AND PLEURA: No opacities, masses or pneumothorax. No pleural effusion. MEDIASTINUM AND HILAR STRUCTURES: No masses. Contour normal. HEART AND VASCULAR STRUCTURES: Heart normal in size. Normal vasculature. BONES: No acute findings. HARDWARE: None in the chest. OTHER: No other significant finding. IMPRESSION: NO SIGNIFICANT RADIOGRAPHIC FINDING IN THE CHEST. TECHNICAL DOCUMENTATION: JOB ID: [id number] [employer]- All Rights Reserved Reading location - IP/workstation name: [email or web address]
[2018-01-10] MEDS ORDERED: ONDANSETRON HCL INJ/PF 4 MG/2 ML SDV IV ONE (13:57)
[2018-01-10] MEDS ORDERED: HYDROCODONE/ACETAMINOPHEN 5-325 MG TABLET PO ONE (13:58)
--- NOTE | 2018-01-10 14:13 | EKG REPORT ---
SEVERITY:- NORMAL ECG - SINUS RHYTHM : Confirmed by: Cricket Pantoja MD 10-Jan-2018 14:12:09
[2018-01-10] MEDS: LANSOPRAZOLE 30 MG TAB.RAP.DR PO SCH (17:54)
[2018-01-10] MEDS ORDERED: MECLIZINE HCL 25 MG TABLET PO SCH (18:00)
--- NOTE | 2018-01-10 18:12 | PDOC H&P ---
History of Present Illness Admission Date/PCP: 01/10/18 14:48 MERYL ORNELAS MD Patient complains of: Recurrent falls and vertigo History of Present Illness: YESSY ALMODOVAR is a 52 year old [address] of Dr. Ornelas who presented to the ED following recurrent episodes of dizziness, vertigo and fall at home. Patient reported history of recurrent vertigo with falls and extensive evaluation for same and eventually diagnosed with vertigo. He reported improvement in his symptoms during early phase of therapy with Meclizine but the intensity and frequency of his vertigo and fall have increased in recent time. He reported his recent episode occurred while standing in his bathroom preparing to go to his job at [employer] earlier today and he hit his head during the incidental fall. His sister reported that he passed out for about 4-5 minutes. He denied any chest pain, palpitation, irregular heart, or any focal weakness. Patient has history of right below knee amputation and do use prosthesis for ambulatory and erect positioning. His initial ED evaluation was unrevealing with regard to chest X ray and CT brain. His morbidities include Hypertension, Diabetes Mellitus Type 2, Gastric bypass, Gastroesophageal Reflux Disease, Osteoarthritis , Bipolar Disorder, and Depression. Past Medical History Cardiac Medical History: Reports: Hypertension Denies: Coronary Artery Disease, Myocardial Infarction, Heart Murmur Pulmonary Medical History: Denies: Asthma, Bronchitis, Chronic Obstructive Pulmonary Disease (COPD), Pneumonia Neurological Medical History: Denies: Seizures Endocrine Medical History: Reports: Diabetes Mellitus Type 2 - Since gastric bypass has been able to stop all medications Renal/ Medical History: GI Medical History: Reports: Gastroesophageal Reflux Disease Musculoskeltal Medical History: Reports: Arthritis Psychiatric Medical History: Reports: Bipolar Disorder, Depression Hematology: Reports: Anemia Past Surgical History Past Surgical History: Reports: Appendectomy - 1975, Gastric Bypass Surgery - , Orthopedic Surgery - Right below-knee amputation, Tonsillectomy - 1978 Social History Smoking Status: Never Smoker Frequency of Alcohol Use: None Hx Recreational Drug Use: No Drugs: None Hx Prescription Drug Abuse: No - Advance Directive Resuscitation Status: Full Code Family History Family History: Reviewed & Not Pertinent, CAD, Hypertension, Other - ulcers father and sister Parental Family History Reviewed: Yes Children Family History Reviewed: Yes Sibling(s) Family History Reviewed.: Yes Medication/Allergy Home Medications: Escitalopram Oxalate [Lexapro] 40 mg PO DAILY 03/26/17 Olanzapine [Zyprexa] 20 mg PO QHS 03/26/17 Quetiapine Fumarate [Seroquel] 600 mg PO QHS 03/26/17 Trazodone HCl [Desyrel] 100 mg PO QHS 03/26/17 Linaclotide [Linzess] 290 mcg PO DAILY 09/23/17 Meclizine HCl 25 mg PO BID 12/09/17 Omeprazole 40 mg PO BID 12/09/17 Diazepam [Valium 5 mg Tablet] 10 mg PO TID PRN 01/10/18 Allergies/Adverse Reactions: aripiprazole [From Abiliy] Adverse Reaction (Severe, Verified 12/24/17 09:48) "uncontrollable muscle tremors" Review of Systems Constitutional: PRESENT: headache(s) Eyes: PRESENT: visual disturbances Ears: ABSENT: hearing changes Nose, Mouth, and Throat: PRESENT: headache(s), vertigo Cardiovascular: ABSENT: chest pain, dyspnea on exertion, edema, orthropnea, palpitations Respiratory: ABSENT: cough, hemoptysis Gastrointestinal: ABSENT: abdominal pain, constipation, diarrhea, hematemesis, hematochezia, nausea, vomiting Genitourinary: ABSENT: dysuria, hematuria Integumentary: ABSENT: rash, wounds Neurological: PRESENT: dizziness, vertigo Psychiatric: ABSENT: anxiety, depression, homidical ideation, suicidal ideation Endocrine: ABSENT: cold intolerance, heat intolerance, polydipsia, polyuria Hematologic/Lymphatic: ABSENT: easy bleeding, easy bruising, lymphadenopathy Allergic/Immunologic: ABSENT: seasonal rhinorrhea Physical Exam Vital Signs: Temp Pulse Resp BP Pulse Ox 98.4 F 78 16 103/62 96 01/10/18 15:36 01/10/18 15:36 01/10/18 15:36 01/10/18 15:36 01/10/18 15:36 Intake & Output 01/09/18 01/10/18 01/11/18 06:59 06:59 06:59 Weight 92.8 kg General appearance: PRESENT: no acute distress, well-developed, well-nourished Head exam: PRESENT: atraumatic, normocephalic Eye exam: PRESENT: conjunctiva pink, EOMI, PERRLA. ABSENT: scleral icterus Ear exam: PRESENT: normal external ear exam Mouth exam: PRESENT: moist Neck exam: PRESENT: full ROM. ABSENT: carotid bruit, JVD, lymphadenopathy, thyromegaly Respiratory exam: PRESENT: clear to auscultation jorge Cardiovascular exam: PRESENT: RRR. ABSENT: diastolic murmur, rubs, systolic murmur Vascular exam: PRESENT: normal capillary refill. ABSENT: pallor GI/Abdominal exam: PRESENT: normal bowel sounds, soft. ABSENT: distended, guarding, mass, organolmegaly, rebound, tenderness Rectal exam: PRESENT: deferred Extremities exam: PRESENT: right BKA. ABSENT: pedal edema Musculoskeletal exam: PRESENT: deformity - related to right KBA and joint involvement with arthritis Neurological exam: PRESENT: alert, awake, oriented to person, oriented to place , oriented to time, oriented to situation, CN II-XII grossly intact. ABSENT: motor sensory deficit Psychiatric exam: PRESENT: appropriate affect, normal mood. ABSENT: homicidal ideation, suicidal ideation Skin exam: PRESENT: dry, intact, warm. ABSENT: cyanosis, rash Results Impressions: Head CT 01/10/18 07:19 IMPRESSION: NORMAL BRAIN CT WITHOUT CONTRAST. EVIDENCE OF ACUTE STROKE: NO. Chest X-Ray 01/10/18 10:57 IMPRESSION: NO SIGNIFICANT RADIOGRAPHIC FINDING IN THE CHEST. Assessment & Plan - Diagnosis (1) Vertigo Is this a current diagnosis for this admission?: Yes Plan: Start on IV fluid support. Start on Meclizine 25 mg po q6 hours. IV Zofran 4 mg [id number] prn for nausea or vomiting. Consider IV 1sf generation antihistamine if necessary. (2) Fall in home Qualifiers: Encounter type: initial encounter Qualified Code(s): W19.XXXA - Unspecified fall, initial encounter; Y92.009 - Unspecified place in unspecified non-institutional (private) residence as the place of occurrence of the external cause; Y92.009 - Unspecified place in unspecified non-institutional ( private) residence as the place of occurrence of the external cause Is this a current diagnosis for this admission?: Yes Plan: Engage PT service in view of his right BKA and recurrent falls, although it may be due to vertigo. (3) Diabetes mellitus type 2 in nonobese Is this a current diagnosis for this admission?: Yes Plan: Continue preadmission diabetic mellitus management and accuchek qachs. Obtain HgbA1c level. (4) Bipolar disorder Qualifiers: Active/Remission status: currently active Current bipolar episode type: mixed Current episode severity: severe Psychotic features: without psychotic features Qualified Code(s): F31.63 - Bipolar disorder, current episode mixed, severe, without psychotic features Is this a current diagnosis for this admission?: Yes Plan: Continue current preadmission medications. (5) Hypertension Qualifiers: Hypertension type: essential hypertension Qualified Code(s): I10 - Essential (primary) hypertension (6) GERD (gastroesophageal reflux disease) Qualifiers: Esophagitis presence: esophagitis presence not specified Qualified Code(s) : K21.9 - Gastro-esophageal reflux disease without esophagitis Is this a current diagnosis for this admission?: Yes Plan: Continue current preadmission medications. (7) Depression Qualifiers: Depression Type: major depressive disorder Major depression recurrence: unspecified whether recurrent Is this a current diagnosis for this admission?: Yes Plan: Continue current preadmission medications. (8) gastric bypass surgery status post Is this a current diagnosis for this admission?: Yes Plan: Continue current preadmission medications. - Time Time Spent: 50 to 70 Minutes Medications reviewed and adjusted accordingly: Yes Anticipated discharge: Home Within: within 48 hours - Plan Summary Plan Summary: See covering attending physician orders.
[2018-01-10] MEDS ORDERED: GLUCAGON,HUMAN RECOMB 1 MG INJ IM PRN (18:15)
[2018-01-10] MEDS ORDERED: DEXTROSE 50%-WATER 25 GM/50 ML DISP.SYRIN IV PRN ×2 (18:15)
[2018-01-10] MEDS ORDERED: DEXTROSE 40% GEL 15 GM TUBE PO PRN ×2 (18:15)
[2018-01-10] MEDS: NORMAL SALINE 1000 ML 1,000 ML IV PRN (18:30)
[2018-01-10] MEDS: HYDROCODONE/ACETAMINOPHEN 5-325 MG TABLET PO PRN (18:32)
[2018-01-10 19:19] LABS: HEMATOCRIT 24.5 % (37.9-51.0); MEAN CORPUSCULAR HGB CONC 31.9 g/dL (32.0-36.0); MEAN CORPUSCULAR VOLUME 69 fl (80-97); PLATELET COUNT 364 10^3/uL (150-450); RED BLOOD COUNT 3.55 10^6/uL (4.35-5.55); RED CELL DISTRIBUTION WIDTH 21.5 % (11.5-14.0); WHITE BLOOD COUNT 6.3 10^3/uL (4.0-10.5)
[2018-01-10 19:27] LABS: HEMOGLOBIN 7.8 g/dL (13.5-17.0)
[2018-01-10] MEDS ORDERED: MECLIZINE HCL 25 MG TABLET ONE (19:29)
[2018-01-10 19:40] LABS: ABSOLUTE LYMPHOCYTES# (MANUAL) 1.6 10^3/uL (0.5-4.7); ABSOLUTE MONOCYTES # (MANUAL) 0.4 10^3/uL (0.1-1.4); ABSOLUTE NEUTROPHILS# (MANUAL) 4.3 10^3/uL (1.7-8.2); BASOPHILS % (MANUAL) 0 % (0-2); EOSINOPHILS % (MANUAL) 0 % (0-6); LYMPHOCYTES % (MANUAL) 26 % (13-45); MONOCYTES % (MANUAL) 6 % (3-13); SEGMENTED NEUTROPHILS % (MAN) 68 % (42-78); TOTAL CELLS COUNTED 100
[2018-01-10 19:41] LABS: ANISOCYTOSIS 3+; PLATELET COMMENT ADEQUATE; POLYCHROMASIA 1+
[2018-01-10] MEDS: MECLIZINE HCL 25 MG TABLET PO SCH (19:46)
[2018-01-10] MEDS: QUETIAPINE FUMARATE 100 MG TABLET PO SCH (21:13)
[2018-01-10] MEDS: OLANZAPINE 5 MG TABLET PO SCH (21:14)
[2018-01-10] MEDS: TRAZODONE HCL 50 MG TABLET PO SCH (21:14)
[2018-01-11] MEDS: MECLIZINE HCL 25 MG TABLET PO SCH ×4 (00:28→17:35)
[2018-01-11] MEDS: HYDROCODONE/ACETAMINOPHEN 5-325 MG TABLET PO PRN (07:34)
[2018-01-11 08:08] LABS: ABSOLUTE EOSINOPHILS # (AUTO) 0.2 10^3/uL (0.0-0.6); ABSOLUTE LYMPHOCYTES (AUTO) 1.5 10^3/uL (0.5-4.7); ABSOLUTE MONOCYTES (AUTO) 0.4 10^3/uL (0.1-1.4); ABSOLUTE NEUT (AUTO) 5.8 10^3/uL (1.7-8.2); BASOPHILS % (AUTO) 0.6 % (0-2); EOSINOPHILS % (AUTO) 2.9 % (0-6); HEMATOCRIT 30.8 % (37.9-51.0); MEAN CORPUSCULAR HEMOGLOBIN 22.8 pg (27.0-33.4); MEAN CORPUSCULAR HGB CONC 32.3 g/dL (32.0-36.0); MEAN CORPUSCULAR VOLUME 70 fl (80-97); MONOCYTES % (AUTO) 5.5 % (3-13); PLATELET COUNT 357 10^3/uL (150-450); RED BLOOD COUNT 4.38 10^6/uL (4.35-5.55); TOTAL CELLS COUNTED % (AUTO) 100 %; WHITE BLOOD COUNT 8.1 10^3/uL (4.0-10.5)
[2018-01-11] MEDS: ESCITALOPRAM OXALATE 10 MG TABLET PO SCH (11:47)
[2018-01-11] MEDS: QUETIAPINE FUMARATE 100 MG TABLET PO SCH ×2 (11:48→21:38)
[2018-01-11] MEDS: LANSOPRAZOLE 30 MG TAB.RAP.DR PO SCH ×2 (11:48→17:35)
[2018-01-11] MEDS: PROMETHAZINE HCL INJ 25 MG/1 ML VIAL IV PRN (12:42)
[2018-01-11] MEDS: DIAZEPAM 5 MG TABLET PO PRN ×2 (12:47→17:35)
--- NOTE | 2018-01-11 15:50 | PDOC PROGRESS REPORT ---
Subjective Progress Note for:: 01/11/18 Subjective:: Patient is laying in bed comfortably and tolerating oral feeding but continue to complain about vertigo, nausea, and vomiting. He reported headache and demanded for Dilaudid to relief his headache. No fever or chills. Reason For Visit: SYNCOPE Physical Exam Vital Signs: Temp Pulse Resp BP Pulse Ox 98.1 F 77 14 108/68 97 01/11/18 12:00 01/11/18 14:00 01/11/18 12:00 01/11/18 12:00 01/11/18 12:00 Intake & Output 01/10/18 01/11/18 01/12/18 06:59 06:59 06:59 Intake Total 1425 Output Total 1600 Balance -175 Weight 93.3 kg General appearance: PRESENT: no acute distress Head exam: PRESENT: atraumatic, normocephalic Eye exam: PRESENT: conjunctiva pink, EOMI, PERRLA. ABSENT: nystagmus - or induced vertigo with change in position durinhg examination., scleral icterus Ear exam: PRESENT: normal external ear exam Mouth exam: PRESENT: moist Respiratory exam: PRESENT: clear to auscultation jorge Cardiovascular exam: PRESENT: RRR. ABSENT: diastolic murmur, rubs, systolic murmur Vascular exam: PRESENT: normal capillary refill. ABSENT: pallor GI/Abdominal exam: PRESENT: normal bowel sounds, soft. ABSENT: distended, guarding, mass, organolmegaly, rebound, tenderness Extremities exam: PRESENT: right BKA. ABSENT: pedal edema Musculoskeletal exam: PRESENT: deformity - related to multiple joint involvement with arthritis Neurological exam: PRESENT: alert, awake, oriented to person, oriented to place , oriented to time, oriented to situation, CN II-XII grossly intact. ABSENT: motor sensory deficit Psychiatric exam: PRESENT: appropriate affect, normal mood. ABSENT: homicidal ideation, suicidal ideation Skin exam: PRESENT: dry, intact, warm. ABSENT: cyanosis, rash Results Laboratory Results: 01/11/18 07:53 01/10/18 01/10/18 01/11/18 19:00 19:50 07:53 WBC 6.3 8.1 RBC 3.55 L 4.38 Hgb 7.8 L 10.0 L D Hct 24.5 L 30.8 L MCV 69 L 70 L MCH 22.0 L 22.8 L MCHC 31.9 L 32.3 RDW 21.5 H 22.0 H Plt Count 364 357 Seg Neutrophils % Not Reportable 72.0 Lymphocytes % Not Reportable 19.0 Monocytes % Not Reportable 5.5 Eosinophils % Not Reportable 2.9 Basophils % Not Reportable 0.6 Absolute Neutrophils Not Reportable 5.8 Absolute Lymphocytes Not Reportable 1.5 Absolute Monocytes Not Reportable 0.4 Absolute Eosinophils Not Reportable 0.2 Absolute Basophils Not Reportable 0.0 Blood Type O POSITIVE Antibody Screen NEGATIVE Impressions: Head CT 01/10/18 07:19 IMPRESSION: NORMAL BRAIN CT WITHOUT CONTRAST. EVIDENCE OF ACUTE STROKE: NO. Chest X-Ray 01/10/18 10:57 IMPRESSION: NO SIGNIFICANT RADIOGRAPHIC FINDING IN THE CHEST. Assessment & Plan - Diagnosis (1) Vertigo Is this a current diagnosis for this admission?: Yes Plan: Continue current medication management. Patient's symptoms is questionable at this time. (2) Fall in home Qualifiers: Encounter type: initial encounter Qualified Code(s): W19.XXXA - Unspecified fall, initial encounter; Y92.009 - Unspecified place in unspecified non-institutional (private) residence as the place of occurrence of the external cause; Y92.009 - Unspecified place in unspecified non-institutional ( private) residence as the place of occurrence of the external cause Is this a current diagnosis for this admission?: Yes Plan: follow up with PT evaluation and input. (3) Diabetes mellitus type 2 in nonobese Is this a current diagnosis for this admission?: Yes Plan: Continue current medication and dietary restriction management. (4) Bipolar disorder Qualifiers: Active/Remission status: currently active Current bipolar episode type: mixed Current episode severity: severe Psychotic features: without psychotic features Qualified Code(s): F31.63 - Bipolar disorder, current episode mixed, severe, without psychotic features Is this a current diagnosis for this admission?: Yes Plan: Maintain on current medication management. (5) Hypertension Qualifiers: Hypertension type: essential hypertension Qualified Code(s): I10 - Essential (primary) hypertension Is this a current diagnosis for this admission?: Yes Plan: Maintain on current medication management. (6) GERD (gastroesophageal reflux disease) Qualifiers: Esophagitis presence: esophagitis presence not specified Qualified Code(s) : K21.9 - Gastro-esophageal reflux disease without esophagitis Is this a current diagnosis for this admission?: Yes Plan: Maintain on current medication management. (7) Depression Qualifiers: Depression Type: major depressive disorder Major depression recurrence: unspecified whether recurrent Is this a current diagnosis for this admission?: Yes Plan: Maintain on current medication management. (8) gastric bypass surgery status post Is this a current diagnosis for this admission?: Yes Plan: Maintain on current medication management. - Time Time Spent with patient: 25-34 minutes Medications reviewed and adjusted accordingly: Yes Anticipated discharge: Home Within: Other - Inpatient Certification Based on my medical assessment, after consideration of the patient's comorbidities, presenting symptoms, or acuity I expect that the services needed warrant INPATIENT care.: Yes I certify that my determination is in accordance with my understanding of Medicare's requirements for reasonable and necessary INPATIENT services [42 CFR 412.3e].: Yes Medical Necessity: Need Close Monitoring Due to Risk of Patient Decompensation, Need For IV Fluids, Need For Continuous Telemetry Monitoring, Need for Pain Control, Risk of Complication if Not Cared For in Hospital 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 I had extensive discussion with patient regarding vertigo, dizziness and falls. Request PT evaluation.
[2018-01-11] MEDS: TRAZODONE HCL 50 MG TABLET PO SCH (21:38)
[2018-01-11] MEDS: OLANZAPINE 5 MG TABLET PO SCH (21:38)
[2018-01-11] MEDS: NORMAL SALINE 1000 ML 1,000 ML IV PRN (21:42)
[2018-01-12] MEDS: MECLIZINE HCL 25 MG TABLET PO SCH ×4 (00:10→17:17)
[2018-01-12] MEDS: HYDROCODONE/ACETAMINOPHEN 5-325 MG TABLET PO PRN ×2 (05:40→09:55)
[2018-01-12] MEDS: PROMETHAZINE HCL INJ 25 MG/1 ML VIAL IV PRN (05:41)
[2018-01-12] MEDS ORDERED: ONDANSETRON HCL INJ/PF 4 MG/2 ML SDV ONE (07:10)
--- NOTE | 2018-01-12 07:57 | RADIOLOGY REPORT (SQ) ---
EXAM DESCRIPTION: CT HEAD WITHOUT IV CONTRAST COMPLETED DATE/TME: 01/12/2018 07:10 CLINICAL HISTORY: 52 years Male, AMS, unwitnessed fall COMPARISON:01/10/2018 TECHNIQUE: No contrast. Coronal and sagittal reformat. This exam was performed according to our departmental dose-optimization program, which includes automated exposure control, adjustment of the mA and/or kV according to patient size and/or use of iterative reconstruction technique. FINDINGS: No hemorrhage or infarct. No mass, mass effect, or midline shift. Mild left maxillary mucosal thickening. Mild left ethmoid mucosal thickening. Brain and extra-axial structures appear otherwise intact. IMPRESSION: No acute findings. Mild left maxillary-ethmoiditis.
[2018-01-12] MEDS: NORMAL SALINE 1000 ML 1,000 ML IV PRN ×2 (08:56→18:30)
--- NOTE | 2018-01-12 09:25 | Physician Advisory Note ---
Physician Advisor ProgressNote .: [facility] I have [facility] medical record for this patient. Physician Advisor Statement: REview of case: 52yo male w/underlying HTN (on no meds currently), DM-2 (off meds since gastric bypass, multiple gastric ulcers since gastric bypass, anemia w/baseline 10s-12s in 2018 but 9-10 on 12/24/17, along with Rt BKA/prosthesis, bipolar depression, on multiple meds, In w/severe dizziness & syncope/fall w/head trauma. Reported recent BRBPR. Hypotensive & pale, tho' hem neg & BUN WNL. Very high RDW/low MCV. 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 ED gave 2L NS IV, & recommended considering transfusion. Repeat Hgb that PM was down to 7.8 before 2u transfusion bringing it to 10.0. Has continued on IVF at 100ml since ED. despite these measures, remains relatively hypotensive, & has had repeat fall. As of 01/11 PM, Zyprexa, Seroquel, & trazodone held. Has used prn Valium 10mg twice on 01/11, & prn Phenergan once on 01/11, once this AM so far. Zyprexa, Seroquel, Trazodone, as well as Valium & even meclizine, can cause hypotension & dizziness. Lexapro also can be associated with dizziness, MUNGUIA, & nausea. Valium can cause MUNGUIA & nausea & syncope, & is being given in high doses. Pt has apparently lost a great deal of wt since gastric bypass, allowing him to require much less medication overall for DM/HTN - perhaps needs other meds scaled back, too? Please consider documenting, if you agree: 1. "acute on chronic Fe defic Anemia, suspect due to acute recent blood loss from " 2. "Hypotension, suspect due to " (dehydration? Rx SE from ____? blood volume loss? ...) 3. "syncope episodes, suspect due to " (Rx SE from ?) 4. do you believe sinusitis/ethmoiditis is related to dizziness at all? acute or chronic? 5. Medical necessity: please document the concerns that continue (see below, + any others), & may change to Inpt status. Status: Appropraitely brought in as Obs initially, given expectation that simply rehydrating & transfusing could allow safe d/c home w/in 24-48 hrs. However, pt w/persistent relative hypotension, dizziness, & recurrent falling even this AM. Attending appropriately holding some meds now that can cause hypotension/dizziness/syncope, & will need to monitor pt for response, watching to see what/how much meds he can tolerate to control his co-morbidities adequately while not continuing w/syncope/hypotension etc. Also may need attention to acute anemia issues in near future.... With documentation of the ongoing issues (pt clearly not yet back to baseline r.e. dizziness severe - failing appropraite tx x 48 hrs so far, high risk for repeated head trauma from falls/syncope which could further worsen his overall clinical status -& expected to require continued close monitoring with titration of meds before he can be clinically safe for d/c) - appropriate for change to Inpatient status. Thanks! CK
[2018-01-12] MEDS: LANSOPRAZOLE 30 MG TAB.RAP.DR PO SCH (09:55)
[2018-01-12] MEDS: ESCITALOPRAM OXALATE 10 MG TABLET PO SCH (09:55)
[2018-01-12] MEDS: QUETIAPINE FUMARATE 100 MG TABLET PO SCH ×2 (09:55→22:07)
[2018-01-12] MEDS: DIAZEPAM 5 MG TABLET PO PRN (13:13)
[2018-01-12] MEDS ORDERED: LANSOPRAZOLE 30 MG TAB.RAP.DR PO SCH (16:00)
[2018-01-12] MEDS ORDERED: LIDOCAINE 1% INJ-PF (10 MG/ML) 30 ML SDV INJ PRN (18:19)
--- NOTE | 2018-01-12 20:48 | PDOC PROGRESS REPORT ---
Subjective Progress Note for:: 01/12/18 Subjective:: Patient seen by the bedside, he is scheduled for revision of the gastric bypass on February 13, 2018, for the last more than 6 months patient has not been able to keep any food down he is constantly vomiting, has had episode of loss of consciousness, he has no energy, it is becoming a life threatening situation, at this point I will start him on TPN, I thought of a PEG tube but because he is scheduled for revision of the gastric bypass in the next month I will rather not get a PEG tube but start him on TPN,This was explained to this patient, family is very concerned about the constant vomiting the inability to keep food down for more than 6 months, though the blood work looks normal but it does not truly reflect the state of this patient nutrition Reason For Visit: RECURRENT FALLS,VERTIGO,SYNCOPE Physical Exam Vital Signs: Temp Pulse Resp BP Pulse Ox 98.0 F 72 20 103/60 98 01/12/18 15:38 01/12/18 19:00 01/12/18 15:38 01/12/18 15:38 01/12/18 15:38 Intake & Output 01/11/18 01/12/18 01/13/18 06:59 06:59 06:59 Intake Total 957 Balance 957 General appearance: PRESENT: mild distress Eye exam: PRESENT: PERRLA Respiratory exam: PRESENT: clear to auscultation jorge Cardiovascular exam: PRESENT: +S1, +S2 GI/Abdominal exam: PRESENT: soft Neurological exam: PRESENT: alert Results Impressions: Head CT 01/12/18 07:10 IMPRESSION: No acute findings. Mild left maxillary-ethmoiditis. Assessment & Plan - Diagnosis (1) Intractable vomiting Qualifiers: Vomiting type: unspecified Nausea presence: with nausea Qualified Code(s) : R11.2 - Nausea with vomiting, unspecified Is this a current diagnosis for this admission?: Yes Plan: Start TPN
--- NOTE | 2018-01-12 21:24 | RADIOLOGY REPORT (SQ) ---
EXAM DESCRIPTION: XR CHEST 1 VIEW COMPLETED DATE/TME: 01/12/2018 00:00 CLINICAL HISTORY: 52 years Male central line placement confirmation COMPARISON: 01/10/2018 FINDINGS: Cardiac size is within normal limits. There is increased density in the left perihilar region and retrocardiac space. Question developing area of infiltrate. Subclavian line has been placed on the left with the tip in the SVC. There is no evidence of pneumothorax. IMPRESSION: Subclavian line in place on the left of the tip in the SVC There is increased density in the left perihilar region and retrocardiac region on the left with some air bronchograms noted. Findings are concerning for area of developing infiltrate
[2018-01-12] MEDS: TRAZODONE HCL 50 MG TABLET PO SCH (22:07)
[2018-01-12] MEDS: OLANZAPINE 5 MG TABLET PO SCH (22:07)
[2018-01-13] MEDS: TRAZODONE HCL 50 MG TABLET PO SCH (01:21)
[2018-01-13] MEDS: OLANZAPINE 5 MG TABLET PO SCH (01:22)
[2018-01-13] MEDS: QUETIAPINE FUMARATE 100 MG TABLET PO SCH ×2 (01:22→10:49)
[2018-01-13] MEDS: MECLIZINE HCL 25 MG TABLET PO SCH ×5 (01:23→17:07)
[2018-01-13] MEDS: BUTALB/ACETAMINOPHEN/CAFFEINE 1 TAB EACH PO PRN (03:15)
[2018-01-13 06:26] LABS: ALANINE AMINOTRANSFERASE 13 U/L (21-72); ALBUMIN 3.5 g/dL (3.5-5.0); ALKALINE PHOSPHATASE 64 U/L (38-126); ANION GAP 12 (5-19); ASPARTATE AMINO TRANSFERASE 19 U/L (17-59); BILIRUBIN,DIRECT 0.2 mg/dL (0.0-0.4); BILIRUBIN,TOTAL 0.4 mg/dL (0.2-1.3); BLOOD UREA NITROGEN 4 mg/dL (7-20); CALCIUM 9.2 mg/dL (8.4-10.2); CARBON DIOXIDE 27 mmol/L (22-30); CHLORIDE 102 mmol/L (98-107); GLUCOSE 89 mg/dL (75-110); PHOSPHORUS 2.9 mg/dL (2.5-4.5); POTASSIUM 4.4 mmol/L (3.6-5.0); SODIUM 140.7 mmol/L (137-145); TOTAL PROTEIN 6.2 g/dL (6.3-8.2); TRIGLYCERIDES 70 mg/dL (<150)
[2018-01-13 06:33] LABS: PREALBUMIN 24.7 mg/dL (17.6-36.0)
[2018-01-13] MEDS: DIAZEPAM 5 MG TABLET PO PRN ×3 (07:41→17:07)
[2018-01-13] MEDS: ESCITALOPRAM OXALATE 10 MG TABLET PO SCH (10:49)
[2018-01-13] MEDS ORDERED: AMINO ACIDS 5%/D25W 1,000 ML IV PRN ×2 (14:00→18:00)
[2018-01-13] MEDS: AMINO ACIDS 5%/D25W 1,000 ML IV PRN (15:02)
[2018-01-13 15:17] LABS: ABSOLUTE EOSINOPHILS # (AUTO) 0.3 10^3/uL (0.0-0.6); ABSOLUTE LYMPHOCYTES (AUTO) 1.4 10^3/uL (0.5-4.7); ABSOLUTE MONOCYTES (AUTO) 0.6 10^3/uL (0.1-1.4); BASOPHILS % (AUTO) 0.4 % (0-2); EOSINOPHILS % (AUTO) 4.3 % (0-6); HEMATOCRIT 28.1 % (37.9-51.0); HEMOGLOBIN 9.2 g/dL (13.5-17.0); MEAN CORPUSCULAR HEMOGLOBIN 22.6 pg (27.0-33.4); MEAN CORPUSCULAR HGB CONC 32.6 g/dL (32.0-36.0); MEAN CORPUSCULAR VOLUME 69 fl (80-97); MONOCYTES % (AUTO) 8.1 % (3-13); PLATELET COUNT 392 10^3/uL (150-450); RED BLOOD COUNT 4.05 10^6/uL (4.35-5.55); RED CELL DISTRIBUTION WIDTH 22.2 % (11.5-14.0); SEGMENTED NEUTROPHILS % (AUTO) 68.2 % (42-78); TOTAL CELLS COUNTED % (AUTO) 100 %; WHITE BLOOD COUNT 7.4 10^3/uL (4.0-10.5)
[2018-01-13] MEDS: NORMAL SALINE 1000 ML 1,000 ML IV PRN ×2 (16:59→17:11)
--- NOTE | 2018-01-13 19:51 | PDOC PROGRESS REPORT ---
Subjective Progress Note for:: 01/13/18 Subjective:: Patient on TPN,Hopefully we can replenish most nutrient in this patient due to persistent vomiting for the past many weeks Reason For Visit: RECURRENT FALLS,VERTIGO,SYNCOPE Physical Exam Vital Signs: Temp Pulse Resp BP Pulse Ox 98.2 F 66 16 115/72 99 01/13/18 16:03 01/13/18 16:03 01/13/18 16:03 01/13/18 16:03 01/13/18 16:03 Intake & Output 01/12/18 01/13/18 01/14/18 06:59 06:59 06:59 Intake Total 2037 1720 Output Total 1200 1300 Balance 837 420 Weight 93.3 kg General appearance: PRESENT: no acute distress Eye exam: PRESENT: PERRLA Respiratory exam: PRESENT: clear to auscultation jorge Cardiovascular exam: PRESENT: +S1, +S2 GI/Abdominal exam: PRESENT: soft Neurological exam: PRESENT: alert Results Laboratory Results: 01/13/18 15:03 01/13/18 05:30 01/13/18 01/13/18 05:30 15:03 WBC 7.4 RBC 4.05 L Hgb 9.2 L Hct 28.1 L MCV 69 L MCH 22.6 L MCHC 32.6 RDW 22.2 H Plt Count 392 Seg Neutrophils % 68.2 Lymphocytes % 19.0 Monocytes % 8.1 Eosinophils % 4.3 Basophils % 0.4 Absolute Neutrophils 5.0 Absolute Lymphocytes 1.4 Absolute Monocytes 0.6 Absolute Eosinophils 0.3 Absolute Basophils 0.0 Sodium 140.7 Potassium 4.4 Chloride 102 Carbon Dioxide 27 Anion Gap 12 BUN 4 L Creatinine 0.62 Est GFR ( Amer) > 60 Est GFR (Non-Af Amer) > 60 Glucose 89 Calcium 9.2 Phosphorus 2.9 Total Bilirubin 0.4 AST 19 ALT 13 L Alkaline Phosphatase 64 Total Protein 6.2 L Albumin 3.5 Prealbumin 24.7 Triglycerides 70 Impressions: Chest X-Ray 01/12/18 00:00 IMPRESSION: Subclavian line in place on the left of the tip in the SVC There is increased density in the left perihilar region and retrocardiac region on the left with some air bronchograms noted. Findings are concerning for area of developing infiltrate Head CT 01/12/18 07:10 IMPRESSION: No acute findings. Mild left maxillary-ethmoiditis. Assessment & Plan - Diagnosis (1) Intractable vomiting Qualifiers: Vomiting type: unspecified Nausea presence: with nausea Qualified Code(s) : R11.2 - Nausea with vomiting, unspecified Is this a current diagnosis for this admission?: Yes (2) GERD (gastroesophageal reflux disease) Qualifiers: Esophagitis presence: esophagitis presence not specified Qualified Code(s) : K21.9 - Gastro-esophageal reflux disease without esophagitis Is this a current diagnosis for this admission?: Yes (3) Anastomotic ulcer Is this a current diagnosis for this admission?: Yes
[2018-01-14] MEDS: TRAZODONE HCL 50 MG TABLET PO SCH ×2 (01:28→22:28)
[2018-01-14] MEDS: QUETIAPINE FUMARATE 100 MG TABLET PO SCH ×3 (01:28→22:28)
[2018-01-14] MEDS: OLANZAPINE 5 MG TABLET PO SCH ×2 (01:29→22:28)
[2018-01-14] MEDS: MECLIZINE HCL 25 MG TABLET PO SCH ×4 (01:48→17:39)
[2018-01-14 08:14] LABS: ALANINE AMINOTRANSFERASE 10 U/L (21-72); ALBUMIN 3.5 g/dL (3.5-5.0); ALKALINE PHOSPHATASE 70 U/L (38-126); ANION GAP 13 (5-19); ASPARTATE AMINO TRANSFERASE 17 U/L (17-59); BILIRUBIN,DIRECT 0.1 mg/dL (0.0-0.4); BILIRUBIN,TOTAL 0.3 mg/dL (0.2-1.3); BLOOD UREA NITROGEN 6 mg/dL (7-20); CARBON DIOXIDE 26 mmol/L (22-30); CHLORIDE 101 mmol/L (98-107); GLUCOSE 123 mg/dL (75-110); PHOSPHORUS 2.9 mg/dL (2.5-4.5); POTASSIUM 4.3 mmol/L (3.6-5.0); SODIUM 139.6 mmol/L (137-145); TOTAL PROTEIN 6.2 g/dL (6.3-8.2)
[2018-01-14 08:22] LABS: PREALBUMIN 22.4 mg/dL (17.6-36.0)
[2018-01-14] MEDS: ESCITALOPRAM OXALATE 10 MG TABLET PO SCH (09:54)
[2018-01-14] MEDS: DIAZEPAM 5 MG TABLET PO PRN (09:55)
[2018-01-14] MEDS: AMINO ACIDS 5%/D25W 1,000 ML IV PRN ×2 (16:04→16:07)
[2018-01-14] MEDS: NORMAL SALINE 1000 ML 1,000 ML IV PRN ×2 (16:06→16:07)
--- NOTE | 2018-01-14 19:28 | PDOC PROGRESS REPORT ---
Subjective Progress Note for:: 01/14/18 Subjective:: Patient seen by the bedside, on TPN responding well to treatment Reason For Visit: RECURRENT FALLS,VERTIGO,SYNCOPE Physical Exam Vital Signs: Temp Pulse Resp BP Pulse Ox 98 F 80 16 109/76 97 01/14/18 15:00 01/14/18 15:00 01/14/18 15:00 01/14/18 15:00 01/14/18 15:00 Intake & Output 01/13/18 01/14/18 01/15/18 06:59 06:59 06:59 Intake Total 2037 2040 3066 Output Total 1200 3050 1450 Balance 837 -1010 1616 Weight 93.3 kg 92.2 kg General appearance: PRESENT: no acute distress Eye exam: PRESENT: PERRLA Respiratory exam: PRESENT: clear to auscultation jorge Cardiovascular exam: PRESENT: +S1, +S2 GI/Abdominal exam: PRESENT: soft Neurological exam: PRESENT: alert Results Laboratory Results: 01/13/18 15:03 01/14/18 07:40 01/14/18 07:40 Sodium 139.6 Potassium 4.3 Chloride 101 Carbon Dioxide 26 Anion Gap 13 BUN 6 L Creatinine 0.62 Est GFR ( Amer) > 60 Est GFR (Non-Af Amer) > 60 Glucose 123 H Calcium 9.0 Phosphorus 2.9 Total Bilirubin 0.3 AST 17 ALT 10 L Alkaline Phosphatase 70 Total Protein 6.2 L Albumin 3.5 Prealbumin 22.4 Impressions: Chest X-Ray 01/12/18 00:00 IMPRESSION: Subclavian line in place on the left of the tip in the SVC There is increased density in the left perihilar region and retrocardiac region on the left with some air bronchograms noted. Findings are concerning for area of developing infiltrate Head CT 01/12/18 07:10 IMPRESSION: No acute findings. Mild left maxillary-ethmoiditis. Assessment & Plan - Diagnosis (1) Intractable vomiting Qualifiers: Vomiting type: unspecified Nausea presence: with nausea Qualified Code(s) : R11.2 - Nausea with vomiting, unspecified Is this a current diagnosis for this admission?: Yes (2) GERD (gastroesophageal reflux disease) Qualifiers: Esophagitis presence: esophagitis presence not specified Qualified Code(s) : K21.9 - Gastro-esophageal reflux disease without esophagitis Is this a current diagnosis for this admission?: Yes (3) Anastomotic ulcer Is this a current diagnosis for this admission?: Yes
[2018-01-15] MEDS: DIAZEPAM 5 MG TABLET PO PRN ×2 (00:09→17:57)
[2018-01-15] MEDS: MECLIZINE HCL 25 MG TABLET PO SCH ×4 (00:10→17:23)
[2018-01-15] MEDS: BUTALB/ACETAMINOPHEN/CAFFEINE 1 TAB EACH PO PRN ×3 (00:10→17:23)
[2018-01-15] MEDS: NORMAL SALINE 1000 ML 1,000 ML IV PRN ×2 (04:16→17:56)
[2018-01-15 06:39] LABS: ALANINE AMINOTRANSFERASE 14 U/L (21-72); ALBUMIN 3.4 g/dL (3.5-5.0); ALKALINE PHOSPHATASE 71 U/L (38-126); ANION GAP 10 (5-19); ASPARTATE AMINO TRANSFERASE 14 U/L (17-59); BILIRUBIN,DIRECT 0.2 mg/dL (0.0-0.4); BILIRUBIN,TOTAL 0.4 mg/dL (0.2-1.3); BLOOD UREA NITROGEN 6 mg/dL (7-20); CALCIUM 8.9 mg/dL (8.4-10.2); CARBON DIOXIDE 28 mmol/L (22-30); CHLORIDE 102 mmol/L (98-107); GLUCOSE 111 mg/dL (75-110); PHOSPHORUS 3.7 mg/dL (2.5-4.5); POTASSIUM 4.6 mmol/L (3.6-5.0); SODIUM 139.8 mmol/L (137-145); TOTAL PROTEIN 6.1 g/dL (6.3-8.2)
[2018-01-15 06:46] LABS: PREALBUMIN 21.5 mg/dL (17.6-36.0)
[2018-01-15] MEDS: ESCITALOPRAM OXALATE 10 MG TABLET PO SCH (11:10)
[2018-01-15] MEDS: QUETIAPINE FUMARATE 100 MG TABLET PO SCH ×2 (11:10→22:52)
[2018-01-15] MEDS: FAT EMULSIONS 250 ML IV SCH (11:11)
[2018-01-15] MEDS: AMINO ACIDS 5%/D25W 1,000 ML IV PRN (18:08)
--- NOTE | 2018-01-15 20:26 | PDOC PROGRESS REPORT ---
Subjective Progress Note for:: 01/15/18 Subjective:: Patient seen by the bedside, on TPN responding well to treatment Reason For Visit: RECURRENT FALLS,VERTIGO,SYNCOPE Physical Exam Vital Signs: Temp Pulse Resp BP Pulse Ox 98.6 F 82 15 127/72 H 97 01/15/18 08:00 01/15/18 14:00 01/15/18 08:00 01/15/18 08:00 01/15/18 08:00 Intake & Output 01/14/18 01/15/18 01/16/18 06:59 06:59 06:59 Intake Total 2040 4688 2939 Output Total 3050 2800 3065 Balance -1010 1888 -126 Weight 92.2 kg 93.8 kg General appearance: PRESENT: no acute distress Eye exam: PRESENT: PERRLA Respiratory exam: PRESENT: clear to auscultation jorge Cardiovascular exam: PRESENT: +S1, +S2 GI/Abdominal exam: PRESENT: soft Neurological exam: PRESENT: alert Results Laboratory Results: 01/13/18 15:03 01/15/18 05:20 01/15/18 05:20 Sodium 139.8 Potassium 4.6 Chloride 102 Carbon Dioxide 28 Anion Gap 10 BUN 6 L Creatinine 0.67 Est GFR ( Amer) > 60 Est GFR (Non-Af Amer) > 60 Glucose 111 H Calcium 8.9 Phosphorus 3.7 Total Bilirubin 0.4 AST 14 L ALT 14 L Alkaline Phosphatase 71 Total Protein 6.1 L Albumin 3.4 L Prealbumin 21.5 Impressions: Chest X-Ray 01/12/18 00:00 IMPRESSION: Subclavian line in place on the left of the tip in the SVC There is increased density in the left perihilar region and retrocardiac region on the left with some air bronchograms noted. Findings are concerning for area of developing infiltrate Head CT 01/12/18 07:10 IMPRESSION: No acute findings. Mild left maxillary-ethmoiditis. Assessment & Plan - Diagnosis (1) Intractable vomiting Qualifiers: Vomiting type: unspecified Nausea presence: with nausea Qualified Code(s) : R11.2 - Nausea with vomiting, unspecified Is this a current diagnosis for this admission?: Yes Plan: Continue treatment (2) GERD (gastroesophageal reflux disease) Qualifiers: Esophagitis presence: esophagitis presence not specified Qualified Code(s) : K21.9 - Gastro-esophageal reflux disease without esophagitis Is this a current diagnosis for this admission?: Yes (3) Anastomotic ulcer Is this a current diagnosis for this admission?: Yes
[2018-01-15] MEDS: TRAZODONE HCL 50 MG TABLET PO SCH (22:52)
[2018-01-15] MEDS: OLANZAPINE 5 MG TABLET PO SCH (22:53)
[2018-01-16] MEDS: MECLIZINE HCL 25 MG TABLET PO SCH ×4 (00:23→17:09)
[2018-01-16] MEDS: BUTALB/ACETAMINOPHEN/CAFFEINE 1 TAB EACH PO PRN (06:38)
[2018-01-16] MEDS: DIAZEPAM 5 MG TABLET PO PRN ×2 (08:50→22:20)
[2018-01-16] MEDS: HYDROCODONE/ACETAMINOPHEN 5-325 MG TABLET PO PRN ×2 (08:50→19:24)
[2018-01-16] MEDS: QUETIAPINE FUMARATE 100 MG TABLET PO SCH ×2 (09:35→22:19)
[2018-01-16] MEDS: ESCITALOPRAM OXALATE 10 MG TABLET PO SCH (09:35)
[2018-01-16] MEDS ORDERED: DEXTROSE 10%-WATER 1,000 ML IV PRN (09:54)
[2018-01-16] MEDS: AMINO ACIDS 5%/D25W 1,000 ML IV PRN (10:58)
[2018-01-16] MEDS: NORMAL SALINE 1000 ML 1,000 ML IV PRN (15:44)
--- NOTE | 2018-01-16 20:39 | RADIOLOGY REPORT (SQ) ---
EXAM DESCRIPTION: CHEST SINGLE VIEW COMPLETED DATE/TIME: 01/16/2018 8:19 pm REASON FOR STUDY: possible pnuemonia, chest congestion COMPARISON: 01/12/2018 EXAM PARAMETERS: NUMBER OF VIEWS: One view. TECHNIQUE: Single frontal radiographic view of the chest acquired. RADIATION DOSE: NA LIMITATIONS: None. FINDINGS: LUNGS AND PLEURA: Minimal parenchymal opacity at the left base. Right lung is clear. MEDIASTINUM AND HILAR STRUCTURES: No masses. Contour normal. HEART AND VASCULAR STRUCTURES: Heart normal in size. Normal vasculature. BONES: No acute findings. HARDWARE: Venous access catheter unchanged. OTHER: No other significant finding. IMPRESSION: Minimal left basilar pneumonitis. TECHNICAL DOCUMENTATION: JOB ID: [id number] [employer]- All Rights Reserved Reading location - IP/workstation name: [email or web address]
--- NOTE | 2018-01-16 21:24 | PDOC PROGRESS REPORT ---
Subjective Progress Note for:: 01/16/18 Subjective:: Patient complaint of cough productive of sputum chest x-ray showed left basilar infiltrate suggestive of pneumonia Reason For Visit: RECURRENT FALLS,VERTIGO,SYNCOPE Physical Exam Vital Signs: Temp Pulse Resp BP Pulse Ox 98.3 F 88 16 122/79 96 01/16/18 20:00 01/16/18 20:00 01/16/18 20:00 01/16/18 20:00 01/16/18 20:00 Intake & Output 01/15/18 01/16/18 01/17/18 06:59 06:59 06:59 Intake Total 4688 4579 2997 Output Total 2800 5415 1800 Balance 1888 -836 1197 Weight 93.8 kg 97.4 kg General appearance: PRESENT: no acute distress Eye exam: PRESENT: PERRLA Respiratory exam: PRESENT: clear to auscultation jorge Cardiovascular exam: PRESENT: +S1, +S2 GI/Abdominal exam: PRESENT: soft Results Laboratory Results: 01/13/18 15:03 01/15/18 05:20 Impressions: Head CT 01/12/18 07:10 IMPRESSION: No acute findings. Mild left maxillary-ethmoiditis. Chest X-Ray 01/16/18 19:56 IMPRESSION: Minimal left basilar pneumonitis. Assessment & Plan - Diagnosis (1) Intractable vomiting Qualifiers: Vomiting type: unspecified Nausea presence: with nausea Qualified Code(s) : R11.2 - Nausea with vomiting, unspecified Is this a current diagnosis for this admission?: Yes (2) GERD (gastroesophageal reflux disease) Qualifiers: Esophagitis presence: esophagitis presence not specified Qualified Code(s) : K21.9 - Gastro-esophageal reflux disease without esophagitis Is this a current diagnosis for this admission?: Yes (3) Anastomotic ulcer Is this a current diagnosis for this admission?: Yes (4) Pneumonia Qualifiers: Pneumonia type: due to unspecified organism Laterality: left Lung location: lower lobe of lung Qualified Code(s): J18.1 - Lobar pneumonia, unspecified organism Is this a current diagnosis for this admission?: Yes Plan: Start antibiotic Levaquin
[2018-01-16] MEDS: OLANZAPINE 5 MG TABLET PO SCH (22:18)
[2018-01-16] MEDS: TRAZODONE HCL 50 MG TABLET PO SCH (22:19)
[2018-01-16] MEDS: LEVOFLOXACIN 750 MG/D5W RTU 750 MG/150 ML RTUPB IV SCH (22:22)
[2018-01-17] MEDS: MECLIZINE HCL 25 MG TABLET PO SCH ×6 (02:51→23:34)
[2018-01-17] MEDS: HYDROCODONE/ACETAMINOPHEN 5-325 MG TABLET PO PRN ×4 (06:28→18:43)
[2018-01-17] MEDS: BENZOCAINE/MENTHOL SORE THROAT LOZENGE BUCCAL PRN ×2 (06:28→16:59)
[2018-01-17] MEDS: DIAZEPAM 5 MG TABLET PO PRN ×3 (06:28→20:59)
[2018-01-17] MEDS: ONDANSETRON HCL INJ/PF 4 MG/2 ML SDV IV PRN (08:13)
[2018-01-17] MEDS: NORMAL SALINE 1000 ML 1,000 ML IV PRN (08:16)
[2018-01-17] MEDS: LEVOFLOXACIN 750 MG/D5W RTU 750 MG/150 ML RTUPB IV SCH (10:06)
[2018-01-17] MEDS: ESCITALOPRAM OXALATE 10 MG TABLET PO SCH (10:07)
[2018-01-17] MEDS: QUETIAPINE FUMARATE 100 MG TABLET PO SCH ×2 (10:07→23:12)
[2018-01-17] MEDS: BUTALB/ACETAMINOPHEN/CAFFEINE 1 TAB EACH PO PRN ×2 (12:10→16:49)
[2018-01-17] MEDS: AMINO ACIDS 5%/D25W 1,000 ML IV PRN (14:08)
--- NOTE | 2018-01-17 15:30 | PDOC PROGRESS REPORT ---
Subjective Progress Note for:: 01/17/18 Subjective:: Recurrent of neck pain cough Reason For Visit: RECURRENT FALLS,VERTIGO,SYNCOPE Physical Exam Vital Signs: Temp Pulse Resp BP Pulse Ox 98.0 F 92 18 99/67 L 95 01/17/18 12:00 01/17/18 12:00 01/17/18 12:00 01/17/18 12:00 01/17/18 12:00 Intake & Output 01/16/18 01/17/18 01/18/18 06:59 06:59 06:59 Intake Total 4579 4687 2100 Output Total 5415 3650 800 Balance -836 1037 1300 Weight 97.4 kg 93.8 kg General appearance: PRESENT: no acute distress Eye exam: PRESENT: PERRLA Respiratory exam: PRESENT: clear to auscultation jorge Cardiovascular exam: PRESENT: +S1, +S2 GI/Abdominal exam: PRESENT: soft Neurological exam: PRESENT: alert Results Laboratory Results: 01/13/18 15:03 01/15/18 05:20 Impressions: Head CT 01/12/18 07:10 IMPRESSION: No acute findings. Mild left maxillary-ethmoiditis. Chest X-Ray 01/16/18 19:56 IMPRESSION: Minimal left basilar pneumonitis. Assessment & Plan - Diagnosis (1) Intractable vomiting Qualifiers: Vomiting type: unspecified Nausea presence: with nausea Qualified Code(s) : R11.2 - Nausea with vomiting, unspecified Is this a current diagnosis for this admission?: Yes (2) GERD (gastroesophageal reflux disease) Qualifiers: Esophagitis presence: esophagitis presence not specified Qualified Code(s) : K21.9 - Gastro-esophageal reflux disease without esophagitis Is this a current diagnosis for this admission?: Yes (3) Anastomotic ulcer Is this a current diagnosis for this admission?: Yes (4) Pneumonia Qualifiers: Pneumonia type: due to unspecified organism Laterality: left Lung location: lower lobe of lung Qualified Code(s): J18.1 - Lobar pneumonia, unspecified organism Is this a current diagnosis for this admission?: Yes
[2018-01-17] MEDS: INSULIN LISPRO 100 UNIT/ML 3 ML VIAL SUBCUT PRN (17:55)
[2018-01-17] MEDS: OLANZAPINE 5 MG TABLET PO SCH (23:12)
[2018-01-17] MEDS: TRAZODONE HCL 50 MG TABLET PO SCH (23:13)
[2018-01-18] MEDS: BENZOCAINE/MENTHOL SORE THROAT LOZENGE BUCCAL PRN ×2 (01:49→11:56)
[2018-01-18] MEDS: MECLIZINE HCL 25 MG TABLET PO SCH ×4 (05:12→23:35)
[2018-01-18] MEDS: DIAZEPAM 5 MG TABLET PO PRN ×2 (06:17→17:09)
[2018-01-18] MEDS: BUTALB/ACETAMINOPHEN/CAFFEINE 1 TAB EACH PO PRN (06:17)
[2018-01-18] MEDS: NORMAL SALINE 1000 ML 1,000 ML IV PRN ×2 (08:33→20:36)
[2018-01-18] MEDS: HYDROCODONE/ACETAMINOPHEN 5-325 MG TABLET PO PRN ×3 (08:34→21:14)
[2018-01-18] MEDS: ESCITALOPRAM OXALATE 10 MG TABLET PO SCH (10:40)
[2018-01-18] MEDS: LEVOFLOXACIN 750 MG/D5W RTU 750 MG/150 ML RTUPB IV SCH (10:41)
[2018-01-18] MEDS: QUETIAPINE FUMARATE 100 MG TABLET PO SCH ×2 (10:41→21:15)
[2018-01-18] MEDS: CYCLOBENZAPRINE HCL 10 MG TABLET PO PRN (13:37)
[2018-01-18] MEDS: AMINO ACIDS 5%/D25W 1,000 ML IV PRN (15:02)
--- NOTE | 2018-01-18 15:37 | PDOC PROGRESS REPORT ---
Subjective Progress Note for:: 01/18/18 Subjective:: Patient was seen by the bedside, the TPN will be discontinued tomorrow Reason For Visit: RECURRENT FALLS,VERTIGO,SYNCOPE Physical Exam Vital Signs: Temp Pulse Resp BP Pulse Ox 99.5 F 117 H 16 123/76 93 01/18/18 12:00 01/18/18 12:00 01/18/18 12:00 01/18/18 12:00 01/18/18 12:00 Intake & Output 01/17/18 01/18/18 01/19/18 06:59 06:59 06:59 Intake Total 4687 4763 1150 Output Total 3650 4275 Balance 6794 325 1806 Weight 93.8 kg 94.3 kg General appearance: PRESENT: no acute distress Eye exam: PRESENT: PERRLA Respiratory exam: PRESENT: rhonchi Cardiovascular exam: PRESENT: +S1, +S2 Neurological exam: PRESENT: alert Results Laboratory Results: 01/13/18 15:03 01/15/18 05:20 Impressions: Head CT 01/12/18 07:10 IMPRESSION: No acute findings. Mild left maxillary-ethmoiditis. Chest X-Ray 01/16/18 19:56 IMPRESSION: Minimal left basilar pneumonitis. Assessment & Plan - Diagnosis (1) Intractable vomiting Qualifiers: Vomiting type: unspecified Nausea presence: with nausea Qualified Code(s) : R11.2 - Nausea with vomiting, unspecified Is this a current diagnosis for this admission?: Yes (2) GERD (gastroesophageal reflux disease) Qualifiers: Esophagitis presence: esophagitis presence not specified Qualified Code(s) : K21.9 - Gastro-esophageal reflux disease without esophagitis Is this a current diagnosis for this admission?: Yes (3) Anastomotic ulcer Is this a current diagnosis for this admission?: Yes (4) Pneumonia Qualifiers: Pneumonia type: due to unspecified organism Laterality: left Lung location: lower lobe of lung Qualified Code(s): J18.1 - Lobar pneumonia, unspecified organism Is this a current diagnosis for this admission?: Yes
[2018-01-18] MEDS: TRAZODONE HCL 50 MG TABLET PO SCH (21:15)
[2018-01-18] MEDS: OLANZAPINE 5 MG TABLET PO SCH (21:15)
[2018-01-19] MEDS: MECLIZINE HCL 25 MG TABLET PO SCH ×4 (05:04→23:25)
[2018-01-19 06:54] LABS: INTERNATIONAL RATION (INR) 1.16; PROTHROMBIN TIME 15.4 SEC (11.4-15.4)
[2018-01-19] MEDS: INSULIN LISPRO 100 UNIT/ML 3 ML VIAL SUBCUT PRN (07:30)
[2018-01-19] MEDS: HYDROCODONE/ACETAMINOPHEN 5-325 MG TABLET PO PRN ×3 (07:36→20:11)
[2018-01-19] MEDS: DIAZEPAM 5 MG TABLET PO PRN ×2 (07:36→16:39)
[2018-01-19] MEDS: BENZOCAINE/MENTHOL SORE THROAT LOZENGE BUCCAL PRN ×3 (09:19→17:37)
[2018-01-19] MEDS: QUETIAPINE FUMARATE 100 MG TABLET PO SCH ×2 (09:25→21:13)
[2018-01-19] MEDS: ESCITALOPRAM OXALATE 10 MG TABLET PO SCH (09:26)
[2018-01-19] MEDS: FAT EMULSIONS 250 ML IV SCH (10:29)
[2018-01-19] MEDS: LEVOFLOXACIN 750 MG/D5W RTU 750 MG/150 ML RTUPB IV SCH (10:30)
[2018-01-19] MEDS: BUTALB/ACETAMINOPHEN/CAFFEINE 1 TAB EACH PO PRN ×2 (11:32→18:48)
[2018-01-19] MEDS: FUROSEMIDE INJ/PF 40 MG/4 ML SDV IV ONE ×2 (14:18→15:54)
[2018-01-19] MEDS ORDERED: FUROSEMIDE 40 MG TABLET PO ONE (15:30)
[2018-01-19] MEDS: CYCLOBENZAPRINE HCL 10 MG TABLET PO PRN (16:39)
--- NOTE | 2018-01-19 21:08 | PDOC PROGRESS REPORT ---
Subjective Progress Note for:: 01/19/18 Subjective:: The IV line tissue, patient is coughing a lot, DC central line, get a chest x- ray and also CT scan of the abdomen Reason For Visit: RECURRENT FALLS,VERTIGO,SYNCOPE Physical Exam Vital Signs: Temp Pulse Resp BP Pulse Ox 101.6 F H 108 H 18 132/74 H 96 01/19/18 20:00 01/19/18 20:00 01/19/18 20:00 01/19/18 20:00 01/19/18 20:00 Intake & Output 01/18/18 01/19/18 01/20/18 06:59 06:59 06:59 Intake Total 4763 3095 2770 Output Total 4275 3250 1000 Balance 488 -155 1770 Weight 94.3 kg 94.3 kg General appearance: PRESENT: mild distress Eye exam: PRESENT: PERRLA Respiratory exam: PRESENT: stridor Cardiovascular exam: PRESENT: +S1, +S2 GI/Abdominal exam: PRESENT: distended, soft Neurological exam: PRESENT: alert, CN II-XII grossly intact Results Laboratory Results: 01/13/18 15:03 01/15/18 05:20 Impressions: Head CT 01/12/18 07:10 IMPRESSION: No acute findings. Mild left maxillary-ethmoiditis. Chest X-Ray 01/16/18 19:56 IMPRESSION: Minimal left basilar pneumonitis. Assessment & Plan - Diagnosis (1) Intractable vomiting Qualifiers: Vomiting type: unspecified Nausea presence: with nausea Qualified Code(s) : R11.2 - Nausea with vomiting, unspecified Is this a current diagnosis for this admission?: Yes (2) GERD (gastroesophageal reflux disease) Qualifiers: Esophagitis presence: esophagitis presence not specified Qualified Code(s) : K21.9 - Gastro-esophageal reflux disease without esophagitis Is this a current diagnosis for this admission?: Yes (3) Anastomotic ulcer Is this a current diagnosis for this admission?: Yes (4) Pneumonia Qualifiers: Pneumonia type: due to unspecified organism Laterality: left Lung location: lower lobe of lung Qualified Code(s): J18.1 - Lobar pneumonia, unspecified organism Is this a current diagnosis for this admission?: Yes Plan: Get a chest x-ray continue IV antibiotic Levaquin (5) Abdominal distension Is this a current diagnosis for this admission?: Yes Plan: Obtain CT scan of abdomen and pelvis
[2018-01-19] MEDS: OLANZAPINE 5 MG TABLET PO SCH (21:13)
[2018-01-19] MEDS: TRAZODONE HCL 50 MG TABLET PO SCH (21:13)
--- NOTE | 2018-01-19 22:36 | RADIOLOGY REPORT (SQ) ---
CT ABDOMEN PELVIS WITHOUT IV CONTRAST HISTORY: Abdominal distension. COMPARISON: None. TECHNIQUE: CT scan of the abdomen and pelvis without IV contrast. This exam was performed according to our departmental dose-optimization program, which includes automated exposure control, adjustment of the mA and/or kV according to patient size and/or use of iterative reconstruction technique. FINDINGS: Please note that the evaluation of the solid and hollow abdominal viscera is limited without IV contrast. Small bilateral pleural effusions, left greater than right, with adjacent atelectasis and groundglass opacity. Liver, gallbladder, spleen, pancreas, and adrenal glands are unremarkable. No urinary calculus or obstructive uropathy. Pelvic organs are unremarkable. Limited evaluation of the GI tract without oral contrast. Status post gastric surgery. Fluid-filled loops of small bowel are seen predominantly in the left hemiabdomen which are mildly dilated, measuring up to 3.1 cm. Infrarenal IVC filter is present. No acute osseous findings. IMPRESSION: Limited study without IV or oral contrast. 1. Status post gastric surgery. Mildly dilated fluid-filled loops of small bowel which may represent ileus or developing obstruction. Follow-up imaging is recommended. 2. Small bilateral pleural effusions, left greater than right, with adjacent atelectasis and groundglass opacity.
--- NOTE | 2018-01-19 22:39 | RADIOLOGY REPORT (SQ) ---
EXAM DESCRIPTION: XR CHEST 2 VIEWS COMPLETED DATE/TME: 01/19/2018 00:00 CLINICAL HISTORY: 52 years Male, cough COMPARISON: 3 days prior. NUMBER OF VIEWS/TECHNIQUE: 1/AP FINDINGS: Moderate patchy left lower lobar opacity-effusion, moderate central edema pattern, normal cardiac silhouette. No pneumothorax. Stable bony thorax. IMPRESSION: Moderate left lower lobar pneumonia. Interval worsening.
[2018-01-20] MEDS: MECLIZINE HCL 25 MG TABLET PO SCH ×3 (05:06→16:59)
[2018-01-20] MEDS: HYDROCODONE/ACETAMINOPHEN 5-325 MG TABLET PO PRN ×3 (07:42→22:09)
[2018-01-20] MEDS: DIAZEPAM 5 MG TABLET PO PRN ×2 (07:42→16:15)
[2018-01-20] MEDS: LEVOFLOXACIN 750 MG/D5W RTU 750 MG/150 ML RTUPB IV SCH (09:36)
[2018-01-20] MEDS: QUETIAPINE FUMARATE 100 MG TABLET PO SCH ×2 (09:42→22:09)
[2018-01-20] MEDS: BUTALB/ACETAMINOPHEN/CAFFEINE 1 TAB EACH PO PRN (09:42)
[2018-01-20] MEDS: ESCITALOPRAM OXALATE 10 MG TABLET PO SCH (09:42)
[2018-01-20] MEDS: INSULIN LISPRO 100 UNIT/ML 3 ML VIAL SUBCUT PRN (12:48)
[2018-01-20] MEDS: ACETAMINOPHEN 325 MG TABLET PO PRN (13:46)
[2018-01-20] MEDS: BENZOCAINE/MENTHOL SORE THROAT LOZENGE BUCCAL PRN (17:47)
[2018-01-20] MEDS ORDERED: VANCOMYCIN HCL 0 MG in DEXTROSE 5%-WATER 250 ML IV NR (18:15)
[2018-01-20 18:59] LABS: ABSOLUTE BASOPHILS # (AUTO) 0.1 10^3/uL (0.0-0.2); ABSOLUTE EOSINOPHILS # (AUTO) 0.2 10^3/uL (0.0-0.6); ABSOLUTE LYMPHOCYTES (AUTO) 1.2 10^3/uL (0.5-4.7); ABSOLUTE MONOCYTES (AUTO) 1.7 10^3/uL (0.1-1.4); ABSOLUTE NEUT (AUTO) 7.5 10^3/uL (1.7-8.2); BASOPHILS % (AUTO) 1.2 % (0-2); EOSINOPHILS % (AUTO) 2.3 % (0-6); HEMATOCRIT 29.9 % (37.9-51.0); HEMOGLOBIN 9.8 g/dL (13.5-17.0); LYMPHOCYTES % (AUTO) 11.1 % (13-45); MEAN CORPUSCULAR HEMOGLOBIN 22.1 pg (27.0-33.4); MEAN CORPUSCULAR HGB CONC 32.6 g/dL (32.0-36.0); MEAN CORPUSCULAR VOLUME 68 fl (80-97); MONOCYTES % (AUTO) 15.6 % (3-13); PLATELET COUNT 286 10^3/uL (150-450); RED BLOOD COUNT 4.42 10^6/uL (4.35-5.55); RED CELL DISTRIBUTION WIDTH 22.7 % (11.5-14.0); SEGMENTED NEUTROPHILS % (AUTO) 69.8 % (42-78); TOTAL CELLS COUNTED % (AUTO) 100 %; WHITE BLOOD COUNT 10.8 10^3/uL (4.0-10.5)
[2018-01-20 19:18] LABS: ANISOCYTOSIS 3+; OVALOCYTES SLIGHT; POIKILOCYTOSIS SLIGHT
[2018-01-20 19:19] LABS: HYPOCHROMASIA SLIGHT; PLATELET COMMENT ADEQUATE
[2018-01-20 19:24] LABS: ALANINE AMINOTRANSFERASE 12 U/L (21-72); ALBUMIN 3.3 g/dL (3.5-5.0); ALKALINE PHOSPHATASE 75 U/L (38-126); ANION GAP 16 (5-19); ASPARTATE AMINO TRANSFERASE 14 U/L (17-59); BILIRUBIN,DIRECT 0.3 mg/dL (0.0-0.4); BILIRUBIN,TOTAL 0.5 mg/dL (0.2-1.3); BLOOD UREA NITROGEN 11 mg/dL (7-20); CALCIUM 8.9 mg/dL (8.4-10.2); CARBON DIOXIDE 23 mmol/L (22-30); CHLORIDE 95 mmol/L (98-107); GLUCOSE 102 mg/dL (75-110); POTASSIUM 4.2 mmol/L (3.6-5.0); SODIUM 133.8 mmol/L (137-145); TOTAL PROTEIN 6.5 g/dL (6.3-8.2)
--- NOTE | 2018-01-20 20:22 | PDOC PROGRESS REPORT ---
Subjective Progress Note for:: 01/20/18 Subjective:: , Patient continues to be symptomatic the chest x-ray from last night showed worsening of the left lower lobe pneumonia suggesting nosocomial pneumonia, she will be treated with IV vancomycin to cover MRSA and Zosyn Reason For Visit: RECURRENT FALLS,VERTIGO,SYNCOPE Physical Exam Vital Signs: Temp Pulse Resp BP Pulse Ox 99.3 F 107 H 19 126/76 H 92 01/20/18 16:09 01/20/18 16:09 01/20/18 16:09 01/20/18 16:09 01/20/18 16:09 Intake & Output 01/19/18 01/20/18 01/21/18 06:59 06:59 06:59 Intake Total 3095 3243 1347 Output Total 3250 2100 1500 Balance -155 1143 -153 Weight 94.3 kg 94.3 kg General appearance: PRESENT: mild distress Eye exam: PRESENT: PERRLA Respiratory exam: PRESENT: crackles Cardiovascular exam: PRESENT: +S1, +S2 GI/Abdominal exam: PRESENT: soft Neurological exam: PRESENT: alert Results Laboratory Results: 01/20/18 11:06 01/20/18 11:06 01/20/18 01/20/18 01/20/18 11:06 11:06 11:06 WBC 10.8 H RBC 4.42 Hgb 9.8 L Hct 29.9 L MCV 68 L MCH 22.1 L MCHC 32.6 RDW 22.7 H Plt Count 286 Seg Neutrophils % 69.8 Lymphocytes % 11.1 L Monocytes % 15.6 H Eosinophils % 2.3 Basophils % 1.2 Absolute Neutrophils 7.5 Absolute Lymphocytes 1.2 Absolute Monocytes 1.7 H Absolute Eosinophils 0.2 Absolute Basophils 0.1 Sodium 133.8 L Potassium 4.2 Chloride 95 L Carbon Dioxide 23 Anion Gap 16 BUN 11 Creatinine 0.67 Est GFR ( Amer) > 60 Est GFR (Non-Af Amer) > 60 Glucose 102 Calcium 8.9 Total Bilirubin 0.5 AST 14 L ALT 12 L Alkaline Phosphatase 75 Total Protein 6.5 Albumin 3.3 L Triglycerides 50 Impressions: Head CT 01/12/18 07:10 IMPRESSION: No acute findings. Mild left maxillary-ethmoiditis. Abdomen/Pelvis CT 01/19/18 00:00 IMPRESSION: Limited study without IV or oral contrast. 1. Status post gastric surgery. Mildly dilated fluid-filled loops of small bowel which may represent ileus or developing obstruction. Follow-up imaging is recommended. 2. Small bilateral pleural effusions, left greater than right, with adjacent atelectasis and groundglass opacity. Chest X-Ray 01/19/18 00:00 IMPRESSION: Moderate left lower lobar pneumonia. Interval worsening. Assessment & Plan - Diagnosis (1) Intractable vomiting Qualifiers: Vomiting type: unspecified Nausea presence: with nausea Qualified Code(s) : R11.2 - Nausea with vomiting, unspecified Is this a current diagnosis for this admission?: Yes (2) GERD (gastroesophageal reflux disease) Qualifiers: Esophagitis presence: esophagitis presence not specified Qualified Code(s) : K21.9 - Gastro-esophageal reflux disease without esophagitis Is this a current diagnosis for this admission?: Yes (3) Anastomotic ulcer Is this a current diagnosis for this admission?: Yes (4) Pneumonia Qualifiers: Pneumonia type: due to unspecified organism Laterality: left Lung location: lower lobe of lung Qualified Code(s): J18.1 - Lobar pneumonia, unspecified organism Is this a current diagnosis for this admission?: Yes Plan: Start vancomycin and Zosyn to cover MRSA, gram-negative pathogens
[2018-01-20] MEDS ORDERED: PHARMACY COMMUNICATION ORDER MC NR (20:30)
[2018-01-20] MEDS ORDERED: ACETAMINOPHEN 325 MG TABLET NG PRN (21:15)
[2018-01-20] MEDS ORDERED: BUTALB/ACETAMINOPHEN/CAFFEINE 1 TAB EACH NG PRN (21:16)
[2018-01-20] MEDS ORDERED: CYCLOBENZAPRINE HCL 10 MG TABLET NG PRN (21:16)
[2018-01-20] MEDS ORDERED: DIAZEPAM 5 MG TABLET NG PRN (21:17)
[2018-01-20] MEDS ORDERED: HYDROCODONE/ACETAMINOPHEN 5-325 MG TABLET NG PRN (21:17)
[2018-01-20] MEDS: PIPERACILLIN SODIUM/TAZOBACTAM 3.375 GM in NORMAL SALINE 100 ML IV SCH (21:19)
[2018-01-20] MEDS ORDERED: QUETIAPINE FUMARATE 100 MG TABLET NG SCH (22:00)
[2018-01-20] MEDS ORDERED: TRAZODONE HCL 50 MG TABLET NG SCH (22:00)
[2018-01-20] MEDS ORDERED: OLANZAPINE 5 MG TABLET NG SCH (22:00)
[2018-01-20] MEDS: ONDANSETRON HCL INJ/PF 4 MG/2 ML SDV IV PRN (22:02)
[2018-01-20] MEDS: OLANZAPINE 5 MG TABLET PO SCH (22:08)
[2018-01-20] MEDS: TRAZODONE HCL 50 MG TABLET PO SCH (22:10)
[2018-01-20] MEDS: CYCLOBENZAPRINE HCL 10 MG TABLET PO PRN (22:10)
--- NOTE | 2018-01-20 22:12 | RADIOLOGY REPORT (SQ) ---
EXAM DESCRIPTION: XR ABDOMEN 1 VIEW (KUB) COMPLETED DATE/TME: 01/20/2018 00:00 CLINICAL HISTORY: 52 years, Male, abdominal distension Findings: IVC filter is in place. Moderate amount of stool in the colon. No free intraperitoneal air. Mildly diffusely dilated loops of small and large bowel. Impression: Mild diffuse ileus versus constipation suspected.
[2018-01-21] MEDS ORDERED: MECLIZINE HCL 25 MG TABLET NG SCH
[2018-01-21] MEDS: MECLIZINE HCL 25 MG TABLET PO SCH ×4 (00:01→17:28)
[2018-01-21] MEDS: VANCOMYCIN HCL 1,250 MG in DEXTROSE 5%-WATER 250 ML IV SCH ×4 (00:01→22:45)
[2018-01-21] MEDS: PIPERACILLIN SODIUM/TAZOBACTAM 3.375 GM in NORMAL SALINE 100 ML IV SCH ×4 (02:50→21:30)
[2018-01-21] MEDS: BUTALB/ACETAMINOPHEN/CAFFEINE 1 TAB EACH PO PRN ×2 (08:35→15:20)
[2018-01-21] MEDS: HYDROCODONE/ACETAMINOPHEN 5-325 MG TABLET PO PRN ×3 (08:35→20:09)
[2018-01-21] MEDS: ONDANSETRON HCL INJ/PF 4 MG/2 ML SDV IV PRN ×2 (09:47→18:03)
[2018-01-21] MEDS: QUETIAPINE FUMARATE 100 MG TABLET PO SCH ×2 (09:47→21:45)
[2018-01-21] MEDS: ESCITALOPRAM OXALATE 10 MG TABLET PO SCH (09:47)
[2018-01-21] MEDS: DIAZEPAM 5 MG TABLET PO PRN ×2 (09:47→18:03)
[2018-01-21] MEDS ORDERED: ESCITALOPRAM OXALATE 10 MG TABLET NG SCH (10:00)
[2018-01-21 11:29] LABS: ABSOLUTE EOSINOPHILS # (AUTO) 0.4 10^3/uL (0.0-0.6); ABSOLUTE LYMPHOCYTES (AUTO) 0.7 10^3/uL (0.5-4.7); ABSOLUTE MONOCYTES (AUTO) 1.1 10^3/uL (0.1-1.4); ABSOLUTE NEUT (AUTO) 8.4 10^3/uL (1.7-8.2); BASOPHILS % (AUTO) 0.3 % (0-2); EOSINOPHILS % (AUTO) 3.4 % (0-6); HEMOGLOBIN 9.3 g/dL (13.5-17.0); LYMPHOCYTES % (AUTO) 6.4 % (13-45); MEAN CORPUSCULAR HEMOGLOBIN 21.5 pg (27.0-33.4); MEAN CORPUSCULAR HGB CONC 32.2 g/dL (32.0-36.0); MEAN CORPUSCULAR VOLUME 67 fl (80-97); MONOCYTES % (AUTO) 10.7 % (3-13); PLATELET COUNT 277 10^3/uL (150-450); RED BLOOD COUNT 4.33 10^6/uL (4.35-5.55); RED CELL DISTRIBUTION WIDTH 22.2 % (11.5-14.0); SEGMENTED NEUTROPHILS % (AUTO) 79.2 % (42-78); TOTAL CELLS COUNTED % (AUTO) 100 %; WHITE BLOOD COUNT 10.5 10^3/uL (4.0-10.5)
[2018-01-21 11:49] LABS: ALANINE AMINOTRANSFERASE 24 U/L (21-72); ALBUMIN 3.4 g/dL (3.5-5.0); ALKALINE PHOSPHATASE 82 U/L (38-126); ANION GAP 13 (5-19); ASPARTATE AMINO TRANSFERASE 26 U/L (17-59); BILIRUBIN,DIRECT 0.3 mg/dL (0.0-0.4); BILIRUBIN,TOTAL 0.4 mg/dL (0.2-1.3); BLOOD UREA NITROGEN 9 mg/dL (7-20); CALCIUM 8.8 mg/dL (8.4-10.2); CARBON DIOXIDE 26 mmol/L (22-30); CHLORIDE 96 mmol/L (98-107); GLUCOSE 132 mg/dL (75-110); POTASSIUM 3.9 mmol/L (3.6-5.0); SODIUM 135.4 mmol/L (137-145); TOTAL PROTEIN 6.5 g/dL (6.3-8.2)
--- NOTE | 2018-01-21 15:01 | PDOC PROGRESS REPORT ---
Subjective Progress Note for:: 01/21/18 Subjective:: Patient seen by the bedside he has nosocomial pneumonia, is already improving on the antibiotic, he is getting a PICC line today Reason For Visit: RECURRENT FALLS,VERTIGO,SYNCOPE Physical Exam Vital Signs: Temp Pulse Resp BP Pulse Ox 99.6 F 102 H 19 128/73 H 94 01/21/18 13:30 01/21/18 13:30 01/21/18 13:30 01/21/18 13:30 01/21/18 13:30 Intake & Output 01/20/18 01/21/18 01/22/18 06:59 06:59 06:59 Intake Total 3243 2853 1156 Output Total 2100 2250 700 Balance 1143 603 456 Weight 94.3 kg 97.7 kg General appearance: PRESENT: no acute distress Eye exam: PRESENT: PERRLA Respiratory exam: PRESENT: rhonchi Cardiovascular exam: PRESENT: +S1, +S2 GI/Abdominal exam: PRESENT: soft Neurological exam: PRESENT: alert Results Laboratory Results: 01/21/18 11:13 01/21/18 11:13 01/20/18 01/20/18 01/21/18 11:06 11:06 11:13 WBC 10.8 H RBC 4.42 Hgb 9.8 L Hct 29.9 L MCV 68 L MCH 22.1 L MCHC 32.6 RDW 22.7 H Plt Count 286 Seg Neutrophils % 69.8 Lymphocytes % 11.1 L Monocytes % 15.6 H Eosinophils % 2.3 Basophils % 1.2 Absolute Neutrophils 7.5 Absolute Lymphocytes 1.2 Absolute Monocytes 1.7 H Absolute Eosinophils 0.2 Absolute Basophils 0.1 Sodium 133.8 L 135.4 L Potassium 4.2 3.9 Chloride 95 L 96 L Carbon Dioxide 23 26 Anion Gap 16 13 BUN 11 9 Creatinine 0.67 0.59 Est GFR ( Amer) > 60 > 60 Est GFR (Non-Af Amer) > 60 > 60 Glucose 102 132 H Calcium 8.9 8.8 Total Bilirubin 0.5 0.4 AST 14 L 26 ALT 12 L 24 Alkaline Phosphatase 75 82 Total Protein 6.5 6.5 Albumin 3.3 L 3.4 L 01/21/18 11:13 WBC 10.5 RBC 4.33 L Hgb 9.3 L Hct 29.0 L MCV 67 L MCH 21.5 L MCHC 32.2 RDW 22.2 H Plt Count 277 Seg Neutrophils % 79.2 H Lymphocytes % 6.4 L Monocytes % 10.7 Eosinophils % 3.4 Basophils % 0.3 Absolute Neutrophils 8.4 H Absolute Lymphocytes 0.7 Absolute Monocytes 1.1 Absolute Eosinophils 0.4 Absolute Basophils 0.0 Sodium Potassium Chloride Carbon Dioxide Anion Gap BUN Creatinine Est GFR ( Amer) Est GFR (Non-Af Amer) Glucose Calcium Total Bilirubin AST ALT Alkaline Phosphatase Total Protein Albumin Impressions: Head CT 01/12/18 07:10 IMPRESSION: No acute findings. Mild left maxillary-ethmoiditis. Abdomen/Pelvis CT 01/19/18 00:00 IMPRESSION: Limited study without IV or oral contrast. 1. Status post gastric surgery. Mildly dilated fluid-filled loops of small bowel which may represent ileus or developing obstruction. Follow-up imaging is recommended. 2. Small bilateral pleural effusions, left greater than right, with adjacent atelectasis and groundglass opacity. Chest X-Ray 01/19/18 00:00 IMPRESSION: Moderate left lower lobar pneumonia. Interval worsening. Assessment & Plan - Diagnosis (1) Intractable vomiting Qualifiers: Vomiting type: unspecified Nausea presence: with nausea Qualified Code(s) : R11.2 - Nausea with vomiting, unspecified Is this a current diagnosis for this admission?: Yes (2) GERD (gastroesophageal reflux disease) Qualifiers: Esophagitis presence: esophagitis presence not specified Qualified Code(s) : K21.9 - Gastro-esophageal reflux disease without esophagitis Is this a current diagnosis for this admission?: Yes (3) Anastomotic ulcer Is this a current diagnosis for this admission?: Yes (4) Pneumonia Qualifiers: Pneumonia type: due to unspecified organism Laterality: left Lung location: lower lobe of lung Qualified Code(s): J18.1 - Lobar pneumonia, unspecified organism Is this a current diagnosis for this admission?: Yes (5) Abdominal distension Is this a current diagnosis for this admission?: Yes (6) Nosocomial pneumonia Is this a current diagnosis for this admission?: Yes Plan: Continue present treatment
[2018-01-21] MEDS: CYCLOBENZAPRINE HCL 10 MG TABLET PO PRN (15:10)
--- NOTE | 2018-01-21 15:22 | RADIOLOGY REPORT (SQ) ---
EXAM DESCRIPTION: PICC INSERTION; U/S GUIDE FOR VASCULAR ACCESS; FLUORO/CV PLACEMENT COMPLETED DATE/TIME: 01/21/2018 3:00 pm REASON FOR STUDY: IV ABT; IV ACCESS; IV ABX E11.65 TYPE 2 DIABETES MELLITUS WITH HYPERGLYCEMIA R55 SYNCOPE AND COLLAPSE D64.9 ANEMIA, UNSPECIFIED COMPARISON: AP chest 01/19/2018 FLUOROSCOPY TIME: 44 seconds 1 ultrasound and 1 digital C-arm images saved to PACS. TECHNIQUE: Fluoroscopic and ultrasound guided PICC placement. LIMITATIONS: None. PROCEDURE: After written consent and assessment were obtained, the patient was brought into the [facility] roscopy room and placed supine on the table. Ultrasound evaluation of potential access sites were per formed. After successfully identifying a patent right basilic vein, the right arm was prepped and zoe ped in a sterile fashion along with the ultrasound probe. The entry site was anesthetized with 1% lid ocaine. A 21 gauge 7 cm needle was advanced through the skin and into the basilic vein under live ult rasound guidance. An ultrasound image was saved to PACS confirming access site. A .018 guide wire w as then inserted through the needle and into the venous system. The needle was then removed and an 11 blade scalpel was used to make a 1cm skin incision. A 5 fr peel-away sheath was advanced over the w con and into the venous system. A measurement was then made using the existing wire and live fluorosc opic guidance. The wire was then removed and trimmed. The PICC was advanced through the peel-away she ath and into the venous system. The peel-away sheath was removed and the catheter was adhered to the patients arm with a stat lock. The catheter was then aspirated and flushed and a sterile bandage was placed over the access site. A fluoroscopic spot image was saved to PACS confirming the catheter tip within the superior vena cava. IMPRESSION: SUCCESSFUL PLACEMENT OF A 5 FR DUAL LUMEN 39 CM PICC IN THE RIGHT BASILIC VEIN. COMMENT: Patient medication list reviewed: Yes- Quality ID# [id number]:Eligible professional attests to doc umenting in the medical record they obtained, updated, or reviewed the patient's current medications. . Quality ID 145: Final reports for procedures using fluoroscopy that document radiation exposure yoav sarthak, or exposure time and number of fluorographic images (if radiation exposure indices are not avail able) Quality ID #76: The patient was prepped and draped using maximum sterile barrier technique including cap, mask, sterile gown, sterile gloves, a large sterile sheet, hand hygiene, and 2% Chlorhexidine fo r cutaneous antisepsis. When ultrasound is used, sterile ultrasound techniques are followed requiring sterile gel and sterile probes. TECHNICAL DOCUMENTATION: JOB ID: [id number] [employer]- All Rights Reserved rev-07/18 Reading location - IP/workstation name: [email or web address] [id number]
--- NOTE | 2018-01-21 15:22 | RADIOLOGY REPORT (SQ) ---
EXAM DESCRIPTION: PICC INSERTION; U/S GUIDE FOR VASCULAR ACCESS; FLUORO/CV PLACEMENT COMPLETED DATE/TIME: 01/21/2018 3:00 pm REASON FOR STUDY: IV ABT; IV ACCESS; IV ABX E11.65 TYPE 2 DIABETES MELLITUS WITH HYPERGLYCEMIA R55 SYNCOPE AND COLLAPSE D64.9 ANEMIA, UNSPECIFIED COMPARISON: AP chest 01/19/2018 FLUOROSCOPY TIME: 44 seconds 1 ultrasound and 1 digital C-arm images saved to PACS. TECHNIQUE: Fluoroscopic and ultrasound guided PICC placement. LIMITATIONS: None. PROCEDURE: After written consent and assessment were obtained, the patient was brought into the [facility] roscopy room and placed supine on the table. Ultrasound evaluation of potential access sites were per formed. After successfully identifying a patent right basilic vein, the right arm was prepped and zoe ped in a sterile fashion along with the ultrasound probe. The entry site was anesthetized with 1% lid ocaine. A 21 gauge 7 cm needle was advanced through the skin and into the basilic vein under live ult rasound guidance. An ultrasound image was saved to PACS confirming access site. A .018 guide wire w as then inserted through the needle and into the venous system. The needle was then removed and an 11 blade scalpel was used to make a 1cm skin incision. A 5 fr peel-away sheath was advanced over the w con and into the venous system. A measurement was then made using the existing wire and live fluorosc opic guidance. The wire was then removed and trimmed. The PICC was advanced through the peel-away she ath and into the venous system. The peel-away sheath was removed and the catheter was adhered to the patients arm with a stat lock. The catheter was then aspirated and flushed and a sterile bandage was placed over the access site. A fluoroscopic spot image was saved to PACS confirming the catheter tip within the superior vena cava. IMPRESSION: SUCCESSFUL PLACEMENT OF A 5 FR DUAL LUMEN 39 CM PICC IN THE RIGHT BASILIC VEIN. COMMENT: Patient medication list reviewed: Yes- Quality ID# [id number]:Eligible professional attests to doc umenting in the medical record they obtained, updated, or reviewed the patient's current medications. . Quality ID 145: Final reports for procedures using fluoroscopy that document radiation exposure yoav sarthak, or exposure time and number of fluorographic images (if radiation exposure indices are not avail able) Quality ID #76: The patient was prepped and draped using maximum sterile barrier technique including cap, mask, sterile gown, sterile gloves, a large sterile sheet, hand hygiene, and 2% Chlorhexidine fo r cutaneous antisepsis. When ultrasound is used, sterile ultrasound techniques are followed requiring sterile gel and sterile probes. TECHNICAL DOCUMENTATION: JOB ID: [id number] [employer]- All Rights Reserved rev-07/18 Reading location - IP/workstation name: [email or web address] [id number]
[2018-01-21] MEDS: PROMETHAZINE HCL INJ 25 MG/1 ML VIAL IV PRN ×2 (16:43→21:59)
[2018-01-21] MEDS: INSULIN LISPRO 100 UNIT/ML 3 ML VIAL SUBCUT PRN (17:54)
[2018-01-21] MEDS: BENZOCAINE/MENTHOL SORE THROAT LOZENGE BUCCAL PRN ×2 (18:04→21:46)
[2018-01-21] MEDS: TRAZODONE HCL 50 MG TABLET PO SCH (21:45)
[2018-01-21] MEDS: OLANZAPINE 5 MG TABLET PO SCH (21:45)
[2018-01-21] MEDS: NORMAL SALINE 10 ML SDV (SCHEDULED) IV SCH (21:46)
[2018-01-21] MEDS: NORMAL SALINE 10 ML SDV (AFTER EACH USE) IV PRN (21:59)
[2018-01-22] MEDS: ACETAMINOPHEN 325 MG TABLET PO PRN ×3 (00:24→19:51)
[2018-01-22] MEDS: MECLIZINE HCL 25 MG TABLET PO SCH ×5 (02:02→23:51)
[2018-01-22] MEDS: PIPERACILLIN SODIUM/TAZOBACTAM 3.375 GM in NORMAL SALINE 100 ML IV SCH ×4 (02:05→21:09)
[2018-01-22] MEDS: HYDROCODONE/ACETAMINOPHEN 5-325 MG TABLET PO PRN ×4 (05:12→21:29)
[2018-01-22] MEDS: NORMAL SALINE 10 ML SDV (AFTER EACH USE) IV PRN (05:13)
[2018-01-22] MEDS: VANCOMYCIN HCL 1,250 MG in DEXTROSE 5%-WATER 250 ML IV SCH ×3 (05:14→22:18)
[2018-01-22 06:24] LABS: ALANINE AMINOTRANSFERASE 28 U/L (21-72); ALBUMIN 3.1 g/dL (3.5-5.0); ALKALINE PHOSPHATASE 80 U/L (38-126); ANION GAP 14 (5-19); ASPARTATE AMINO TRANSFERASE 29 U/L (17-59); BILIRUBIN,DIRECT 0.2 mg/dL (0.0-0.4); BILIRUBIN,TOTAL 0.3 mg/dL (0.2-1.3); BLOOD UREA NITROGEN 9 mg/dL (7-20); CALCIUM 8.8 mg/dL (8.4-10.2); CARBON DIOXIDE 26 mmol/L (22-30); CHLORIDE 97 mmol/L (98-107); GLUCOSE 181 mg/dL (75-110); PHOSPHORUS 3.4 mg/dL (2.5-4.5); POTASSIUM 3.7 mmol/L (3.6-5.0); SODIUM 137.1 mmol/L (137-145); TOTAL PROTEIN 6.1 g/dL (6.3-8.2)
[2018-01-22 06:32] LABS: PREALBUMIN 9.1 mg/dL (17.6-36.0)
[2018-01-22] MEDS: CYCLOBENZAPRINE HCL 10 MG TABLET PO PRN ×2 (06:36→14:59)
[2018-01-22] MEDS: DIAZEPAM 5 MG TABLET PO PRN ×2 (08:35→16:42)
[2018-01-22] MEDS: INSULIN LISPRO 100 UNIT/ML 3 ML VIAL SUBCUT PRN ×2 (08:36→18:10)
[2018-01-22] MEDS: BENZOCAINE/MENTHOL SORE THROAT LOZENGE BUCCAL PRN ×2 (08:39→21:29)
[2018-01-22] MEDS: PROMETHAZINE HCL INJ 25 MG/1 ML VIAL IV PRN ×3 (09:59→20:30)
[2018-01-22] MEDS: NORMAL SALINE 10 ML SDV (SCHEDULED) IV SCH ×2 (10:35→21:31)
[2018-01-22] MEDS: ESCITALOPRAM OXALATE 10 MG TABLET PO SCH (10:38)
[2018-01-22] MEDS: QUETIAPINE FUMARATE 100 MG TABLET PO SCH ×2 (10:38→21:27)
[2018-01-22] MEDS ORDERED: LIDOCAINE 5% (700 MG) TRANSDERMAL ADH..PATCH TP ONE (15:00)
[2018-01-22] MEDS: ONDANSETRON HCL INJ/PF 4 MG/2 ML SDV IV PRN (16:42)
--- NOTE | 2018-01-22 17:15 | PDOC PROGRESS REPORT ---
Subjective Progress Note for:: 01/22/18 Subjective:: Patient continue to complain about vertigo, nausea, and vomiting. He reported nonproductive coughing with chest pain with coughing. There is documented fever on 01/22/18. No chills. Reason For Visit: RECURRENT FALLS,VERTIGO,SYNCOPE Physical Exam Vital Signs: Temp Pulse Resp BP Pulse Ox 98.2 F 95 20 131/80 H 98 01/22/18 15:30 01/22/18 15:30 01/22/18 15:30 01/22/18 15:30 01/22/18 15:30 Intake & Output 01/21/18 01/22/18 01/23/18 06:59 06:59 06:59 Intake Total 2853 3160 1412 Output Total 2250 1600 3130 Balance 603 1560 -1718 Weight 97.7 kg 97.8 kg Physical Exam: General appearance: PRESENT: no acute distress Head exam: PRESENT: atraumatic, normocephalic Eye exam: PRESENT: conjunctiva pink, EOMI, PERRLA. ABSENT: nystagmus - or induced vertigo with change in position durinhg examination., scleral icterus Mouth exam: PRESENT: moist Respiratory exam: PRESENT: clear to auscultation jorge Cardiovascular exam: PRESENT: RRR. ABSENT: diastolic murmur, rubs, systolic murmur Vascular exam: ABSENT: pallor GI/Abdominal exam: PRESENT: normal bowel sounds, soft. ABSENT: distended, guarding, mass, organolmegaly, rebound, tenderness Extremities exam: PRESENT: right BKA. ABSENT: pedal edema Musculoskeletal exam: PRESENT: deformity - related to multiple joint involvement with arthritis Neurological exam: PRESENT: alert, awake, oriented to person, oriented to place , oriented to time, oriented to situation, CN II-XII grossly intact. ABSENT: motor sensory deficit Psychiatric exam: PRESENT: appropriate affect, normal mood. ABSENT: homicidal ideation, suicidal ideation Skin exam: PRESENT: dry, intact, warm. ABSENT: cyanosis, rash Results Laboratory Results: 01/21/18 11:13 01/22/18 06:00 01/22/18 06:00 Sodium 137.1 Potassium 3.7 Chloride 97 L Carbon Dioxide 26 Anion Gap 14 BUN 9 Creatinine 0.64 Est GFR ( Amer) > 60 Est GFR (Non-Af Amer) > 60 Glucose 181 H Calcium 8.8 Phosphorus 3.4 Total Bilirubin 0.3 AST 29 ALT 28 Alkaline Phosphatase 80 Total Protein 6.1 L Albumin 3.1 L Prealbumin 9.1 L Impressions: Head CT 01/12/18 07:10 IMPRESSION: No acute findings. Mild left maxillary-ethmoiditis. Abdomen/Pelvis CT 01/19/18 00:00 IMPRESSION: Limited study without IV or oral contrast. 1. Status post gastric surgery. Mildly dilated fluid-filled loops of small bowel which may represent ileus or developing obstruction. Follow-up imaging is recommended. 2. Small bilateral pleural effusions, left greater than right, with adjacent atelectasis and groundglass opacity. Chest X-Ray 01/19/18 00:00 IMPRESSION: Moderate left lower lobar pneumonia. Interval worsening. Guidance Fluoroscopy 01/21/18 00:00 IMPRESSION: SUCCESSFUL PLACEMENT OF A 5 FR DUAL LUMEN 39 CM PICC IN THE RIGHT BASILIC VEIN. Interventional Vascular Procedure 01/21/18 00:00 IMPRESSION: SUCCESSFUL PLACEMENT OF A 5 FR DUAL LUMEN 39 CM PICC IN THE RIGHT BASILIC VEIN. PICC Line Insertion 01/21/18 00:00 IMPRESSION: SUCCESSFUL PLACEMENT OF A 5 FR DUAL LUMEN 39 CM PICC IN THE RIGHT BASILIC VEIN. Assessment & Plan - Diagnosis (1) Vertigo Is this a current diagnosis for this admission?: Yes (2) Fall in home Qualifiers: Encounter type: initial encounter Qualified Code(s): W19.XXXA - Unspecified fall, initial encounter; Y92.009 - Unspecified place in unspecified non-institutional (private) residence as the place of occurrence of the external cause; Y92.009 - Unspecified place in unspecified non-institutional ( private) residence as the place of occurrence of the external cause Is this a current diagnosis for this admission?: Yes (3) Diabetes mellitus type 2 in nonobese Is this a current diagnosis for this admission?: Yes (4) Bipolar disorder Qualifiers: Active/Remission status: currently active Current bipolar episode type: mixed Current episode severity: severe Psychotic features: without psychotic features Qualified Code(s): F31.63 - Bipolar disorder, current episode mixed, severe, without psychotic features Is this a current diagnosis for this admission?: Yes (5) Hypertension Qualifiers: Hypertension type: essential hypertension Qualified Code(s): I10 - Essential (primary) hypertension Is this a current diagnosis for this admission?: Yes (6) GERD (gastroesophageal reflux disease) Qualifiers: Esophagitis presence: esophagitis presence not specified Qualified Code(s) : K21.9 - Gastro-esophageal reflux disease without esophagitis Is this a current diagnosis for this admission?: Yes (7) Depression Qualifiers: Depression Type: major depressive disorder Major depression recurrence: unspecified whether recurrent Is this a current diagnosis for this admission?: Yes (8) gastric bypass surgery status post Is this a current diagnosis for this admission?: Yes - Time Time Spent with patient: 25-34 minutes Medications reviewed and adjusted accordingly: Yes Anticipated discharge: Home with Homehealth Within: Other - Inpatient Certification Based on my medical assessment, after consideration of the patient's comorbidities, presenting symptoms, or acuity I expect that the services needed warrant INPATIENT care.: Yes I certify that my determination is in accordance with my understanding of Medicare's requirements for reasonable and necessary INPATIENT services [42 CFR 412.3e].: Yes Medical Necessity: Need Close Monitoring Due to Risk of Patient Decompensation, Need For IV Fluids, Need For Continuous Telemetry Monitoring, Need for IV Antibiotics, Risk of Complication if Not Cared For in Hospital 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 Start on benzonatate 200 mg po tid prn for coughing. Maintain on all other current medication management. Instructed on postural correction to limit aspiration.
[2018-01-22] MEDS ORDERED: POLYETHYLENE GLYCOL 3350 POWDER 17 GM/1 PACKET PO PRN (17:17)
[2018-01-22] MEDS: DOCUSATE SODIUM 100 MG CAPSULE PO SCH (21:26)
[2018-01-22] MEDS: OLANZAPINE 5 MG TABLET PO SCH (21:26)
[2018-01-22] MEDS: TRAZODONE HCL 50 MG TABLET PO SCH (21:26)
[2018-01-23] MEDS: PIPERACILLIN SODIUM/TAZOBACTAM 3.375 GM in NORMAL SALINE 100 ML IV SCH ×4 (02:56→21:14)
[2018-01-23] MEDS: VANCOMYCIN HCL 1,250 MG in DEXTROSE 5%-WATER 250 ML IV SCH ×3 (05:06→22:50)
[2018-01-23] MEDS: CYCLOBENZAPRINE HCL 10 MG TABLET PO PRN ×2 (05:06→17:18)
[2018-01-23] MEDS: MECLIZINE HCL 25 MG TABLET PO SCH ×3 (05:06→17:17)
[2018-01-23 05:21] LABS: VANCOMYCIN,TROUGH 15.4 ug/mL (5.0-20.0)
[2018-01-23] MEDS: INSULIN LISPRO 100 UNIT/ML 3 ML VIAL SUBCUT PRN ×2 (08:16→12:23)
[2018-01-23] MEDS: DIAZEPAM 5 MG TABLET PO PRN ×2 (08:16→15:21)
[2018-01-23] MEDS: ONDANSETRON HCL INJ/PF 4 MG/2 ML SDV IV PRN ×2 (08:17→19:40)
[2018-01-23] MEDS: ESCITALOPRAM OXALATE 10 MG TABLET PO SCH (09:50)
[2018-01-23] MEDS: NORMAL SALINE 10 ML SDV (SCHEDULED) IV SCH ×2 (09:51→21:15)
[2018-01-23] MEDS: QUETIAPINE FUMARATE 100 MG TABLET PO SCH ×2 (09:51→21:15)
[2018-01-23] MEDS: BENZOCAINE/MENTHOL SORE THROAT LOZENGE BUCCAL PRN (09:51)
[2018-01-23] MEDS: LIDOCAINE 5% (700 MG) TRANSDERMAL ADH..PATCH TP SCH (09:51)
[2018-01-23] MEDS: HYDROCODONE/ACETAMINOPHEN 5-325 MG TABLET PO PRN ×2 (11:43→20:27)
[2018-01-23] MEDS: PROMETHAZINE HCL INJ 25 MG/1 ML VIAL IV PRN ×2 (13:43→21:16)
--- NOTE | 2018-01-23 16:45 | PDOC PROGRESS REPORT ---
Subjective Progress Note for:: 01/23/18 Subjective:: he is still complaining of a cough and complaining of the back pain neck pain Reason For Visit: RECURRENT FALLS,VERTIGO,SYNCOPE Physical Exam Vital Signs: Temp Pulse Resp BP Pulse Ox 98.0 F 101 H 18 125/82 93 01/23/18 11:06 01/23/18 13:48 01/23/18 11:06 01/23/18 11:06 01/23/18 11:06 Intake & Output 01/22/18 01/23/18 01/24/18 06:59 06:59 06:59 Intake Total 3160 4000 1644 Output Total 1600 5330 2250 Balance 1560 -1330 -606 Weight 97.8 kg 93.1 kg General appearance: PRESENT: no acute distress, well-developed, well-nourished Head exam: PRESENT: atraumatic, normocephalic Eye exam: PRESENT: conjunctiva pink, EOMI, PERRLA. ABSENT: scleral icterus Ear exam: PRESENT: normal external ear exam Mouth exam: PRESENT: moist, tongue midline Neck exam: PRESENT: full ROM. ABSENT: carotid bruit, JVD, lymphadenopathy, thyromegaly Respiratory exam: PRESENT: clear to auscultation jorge Cardiovascular exam: PRESENT: RRR. ABSENT: diastolic murmur, rubs, systolic murmur Pulses: PRESENT: normal dorsalis pedis pul, +2 pedal pulses bilateral Vascular exam: PRESENT: normal capillary refill GI/Abdominal exam: PRESENT: normal bowel sounds, soft. ABSENT: distended, guarding, mass, organolmegaly, rebound, tenderness Rectal exam: PRESENT: deferred Neurological exam: PRESENT: alert, awake, oriented to person, oriented to place , oriented to time, oriented to situation, CN II-XII grossly intact. ABSENT: motor sensory deficit Psychiatric exam: PRESENT: appropriate affect, normal mood. ABSENT: homicidal ideation, suicidal ideation Skin exam: PRESENT: dry, intact, warm. ABSENT: cyanosis, rash Results Laboratory Results: 01/21/18 11:13 01/22/18 06:00 Impressions: Head CT 01/12/18 07:10 IMPRESSION: No acute findings. Mild left maxillary-ethmoiditis. Abdomen/Pelvis CT 01/19/18 00:00 IMPRESSION: Limited study without IV or oral contrast. 1. Status post gastric surgery. Mildly dilated fluid-filled loops of small bowel which may represent ileus or developing obstruction. Follow-up imaging is recommended. 2. Small bilateral pleural effusions, left greater than right, with adjacent atelectasis and groundglass opacity. Chest X-Ray 01/19/18 00:00 IMPRESSION: Moderate left lower lobar pneumonia. Interval worsening. Guidance Fluoroscopy 01/21/18 00:00 IMPRESSION: SUCCESSFUL PLACEMENT OF A 5 FR DUAL LUMEN 39 CM PICC IN THE RIGHT BASILIC VEIN. Interventional Vascular Procedure 01/21/18 00:00 IMPRESSION: SUCCESSFUL PLACEMENT OF A 5 FR DUAL LUMEN 39 CM PICC IN THE RIGHT BASILIC VEIN. PICC Line Insertion 01/21/18 00:00 IMPRESSION: SUCCESSFUL PLACEMENT OF A 5 FR DUAL LUMEN 39 CM PICC IN THE RIGHT BASILIC VEIN. Assessment & Plan - Diagnosis (1) Diabetes mellitus type 2 in nonobese Is this a current diagnosis for this admission?: Yes (2) Fall in home Qualifiers: Encounter type: initial encounter Qualified Code(s): W19.XXXA - Unspecified fall, initial encounter; Y92.009 - Unspecified place in unspecified non-institutional (private) residence as the place of occurrence of the external cause; Y92.009 - Unspecified place in unspecified non-institutional ( private) residence as the place of occurrence of the external cause Is this a current diagnosis for this admission?: Yes (3) GERD (gastroesophageal reflux disease) Qualifiers: Esophagitis presence: esophagitis presence not specified Qualified Code(s) : K21.9 - Gastro-esophageal reflux disease without esophagitis Is this a current diagnosis for this admission?: Yes (4) Pneumonia Qualifiers: Pneumonia type: due to unspecified organism Laterality: left Lung location: lower lobe of lung Qualified Code(s): J18.1 - Lobar pneumonia, unspecified organism Is this a current diagnosis for this admission?: Yes (5) Vertigo Is this a current diagnosis for this admission?: Yes (6) Hypertension Qualifiers: Hypertension type: essential hypertension Qualified Code(s): I10 - Essential (primary) hypertension Is this a current diagnosis for this admission?: Yes (7) Vertigo, labyrinthine Qualifiers: Laterality: unspecified laterality Qualified Code(s): H81.09 - Meniere's disease, unspecified ear Is this a current diagnosis for this admission?: Yes (8) gastric bypass surgery status post Is this a current diagnosis for this admission?: Yes - Time Time Spent with patient: 15-24 minutes Medications reviewed and adjusted accordingly: Yes Anticipated discharge: Other Within: Other - Inpatient Certification I certify that my determination is in accordance with my understanding of Medicare's requirements for reasonable and necessary INPATIENT services [42 CFR 412.3e].: Yes Medical Necessity: Need Close Monitoring Due to Risk of Patient Decompensation, Need for IV Antibiotics 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
[2018-01-23] MEDS: OLANZAPINE 5 MG TABLET PO SCH (21:15)
[2018-01-23] MEDS: TRAZODONE HCL 50 MG TABLET PO SCH (21:15)
[2018-01-23] MEDS: DOCUSATE SODIUM 100 MG CAPSULE PO SCH (21:16)
[2018-01-24] MEDS: MECLIZINE HCL 25 MG TABLET PO SCH ×4 (00:55→17:16)
[2018-01-24] MEDS: CYCLOBENZAPRINE HCL 10 MG TABLET PO PRN ×2 (01:02→09:42)
[2018-01-24] MEDS: PIPERACILLIN SODIUM/TAZOBACTAM 3.375 GM in NORMAL SALINE 100 ML IV SCH ×4 (03:38→21:12)
[2018-01-24] MEDS: DIAZEPAM 5 MG TABLET PO PRN ×3 (03:41→18:49)
[2018-01-24] MEDS: ONDANSETRON HCL INJ/PF 4 MG/2 ML SDV IV PRN (03:41)
[2018-01-24] MEDS: VANCOMYCIN HCL 1,250 MG in DEXTROSE 5%-WATER 250 ML IV SCH ×3 (05:41→22:38)
[2018-01-24] MEDS: HYDROCODONE/ACETAMINOPHEN 5-325 MG TABLET PO PRN ×3 (06:34→15:30)
[2018-01-24] MEDS: PROMETHAZINE HCL INJ 25 MG/1 ML VIAL IV PRN ×3 (09:00→21:12)
--- NOTE | 2018-01-24 09:18 | PDOC PROGRESS REPORT ---
Subjective Progress Note for:: 01/24/18 Subjective:: Patient is currently doing fair To have some constipation issues today Denied any chest pain denies any shortness of the breath Reason For Visit: RECURRENT FALLS,VERTIGO,SYNCOPE Physical Exam Vital Signs: Temp Pulse Resp BP Pulse Ox 97.4 F 86 16 146/87 H 100 01/24/18 03:53 01/24/18 07:00 01/24/18 03:53 01/24/18 03:53 01/24/18 03:53 Intake & Output 01/23/18 01/24/18 01/25/18 06:59 06:59 06:59 Intake Total 4000 4080 250 Output Total 5330 3385 Balance -1330 695 250 Weight 93.1 kg 206.4 kg General appearance: PRESENT: no acute distress, well-developed, well-nourished Head exam: PRESENT: atraumatic, normocephalic Eye exam: PRESENT: conjunctiva pink, EOMI, PERRLA. ABSENT: scleral icterus Ear exam: PRESENT: normal external ear exam Mouth exam: PRESENT: moist, tongue midline Neck exam: PRESENT: full ROM. ABSENT: carotid bruit, JVD, lymphadenopathy, thyromegaly Respiratory exam: PRESENT: clear to auscultation jorge Cardiovascular exam: PRESENT: RRR. ABSENT: diastolic murmur, rubs, systolic murmur Pulses: PRESENT: normal dorsalis pedis pul, +2 pedal pulses bilateral Vascular exam: PRESENT: normal capillary refill GI/Abdominal exam: PRESENT: normal bowel sounds, soft. ABSENT: distended, guarding, mass, organolmegaly, rebound, tenderness Rectal exam: PRESENT: deferred Neurological exam: PRESENT: alert, awake, oriented to person, oriented to place , oriented to time, oriented to situation, CN II-XII grossly intact. ABSENT: motor sensory deficit Psychiatric exam: PRESENT: appropriate affect, normal mood. ABSENT: homicidal ideation, suicidal ideation Skin exam: PRESENT: dry, intact, warm. ABSENT: cyanosis, rash Results Laboratory Results: 01/21/18 11:13 01/22/18 06:00 Impressions: Head CT 01/12/18 07:10 IMPRESSION: No acute findings. Mild left maxillary-ethmoiditis. Abdomen/Pelvis CT 01/19/18 00:00 IMPRESSION: Limited study without IV or oral contrast. 1. Status post gastric surgery. Mildly dilated fluid-filled loops of small bowel which may represent ileus or developing obstruction. Follow-up imaging is recommended. 2. Small bilateral pleural effusions, left greater than right, with adjacent atelectasis and groundglass opacity. Chest X-Ray 01/19/18 00:00 IMPRESSION: Moderate left lower lobar pneumonia. Interval worsening. Guidance Fluoroscopy 01/21/18 00:00 IMPRESSION: SUCCESSFUL PLACEMENT OF A 5 FR DUAL LUMEN 39 CM PICC IN THE RIGHT BASILIC VEIN. Interventional Vascular Procedure 01/21/18 00:00 IMPRESSION: SUCCESSFUL PLACEMENT OF A 5 FR DUAL LUMEN 39 CM PICC IN THE RIGHT BASILIC VEIN. PICC Line Insertion 01/21/18 00:00 IMPRESSION: SUCCESSFUL PLACEMENT OF A 5 FR DUAL LUMEN 39 CM PICC IN THE RIGHT BASILIC VEIN. Assessment & Plan - Diagnosis (1) Diabetes mellitus type 2 in nonobese Is this a current diagnosis for this admission?: Yes (2) Fall in home Qualifiers: Encounter type: initial encounter Qualified Code(s): W19.XXXA - Unspecified fall, initial encounter; Y92.009 - Unspecified place in unspecified non-institutional (private) residence as the place of occurrence of the external cause; Y92.009 - Unspecified place in unspecified non-institutional ( private) residence as the place of occurrence of the external cause Is this a current diagnosis for this admission?: Yes (3) GERD (gastroesophageal reflux disease) Qualifiers: Esophagitis presence: esophagitis presence not specified Qualified Code(s) : K21.9 - Gastro-esophageal reflux disease without esophagitis Is this a current diagnosis for this admission?: Yes (4) Pneumonia Qualifiers: Pneumonia type: due to unspecified organism Laterality: left Lung location: lower lobe of lung Qualified Code(s): J18.1 - Lobar pneumonia, unspecified organism Is this a current diagnosis for this admission?: Yes (5) Vertigo Is this a current diagnosis for this admission?: Yes (6) Hypertension Qualifiers: Hypertension type: essential hypertension Qualified Code(s): I10 - Essential (primary) hypertension Is this a current diagnosis for this admission?: Yes (7) Vertigo, labyrinthine Qualifiers: Laterality: unspecified laterality Qualified Code(s): H81.09 - Meniere's disease, unspecified ear Is this a current diagnosis for this admission?: Yes (8) gastric bypass surgery status post Is this a current diagnosis for this admission?: Yes - Time Time Spent with patient: 15-24 minutes Medications reviewed and adjusted accordingly: Yes Anticipated discharge: Other Within: Other - Inpatient Certification Based on my medical assessment, after consideration of the patient's comorbidities, presenting symptoms, or acuity I expect that the services needed warrant INPATIENT care.: Yes I certify that my determination is in accordance with my understanding of Medicare's requirements for reasonable and necessary INPATIENT services [42 CFR 412.3e].: Yes Medical Necessity: Need for IV Antibiotics 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
[2018-01-24] MEDS: LIDOCAINE 5% (700 MG) TRANSDERMAL ADH..PATCH TP SCH (09:38)
[2018-01-24] MEDS: ESCITALOPRAM OXALATE 10 MG TABLET PO SCH (09:39)
[2018-01-24] MEDS: POLYETHYLENE GLYCOL 3350 POWDER 17 GM/1 PACKET PO SCH (09:39)
[2018-01-24] MEDS: QUETIAPINE FUMARATE 100 MG TABLET PO SCH ×2 (09:40→21:12)
[2018-01-24] MEDS: ACETAMINOPHEN 325 MG TABLET PO PRN ×2 (09:40→17:16)
[2018-01-24] MEDS: NORMAL SALINE 10 ML SDV (SCHEDULED) IV SCH ×2 (09:40→21:13)
[2018-01-24] MEDS: LACTULOSE SYRUP 20 GM/30 ML UDCUP PO PRN (09:42)
[2018-01-24] MEDS: BUTALB/ACETAMINOPHEN/CAFFEINE 1 TAB EACH PO PRN (18:55)
[2018-01-24] MEDS: OLANZAPINE 5 MG TABLET PO SCH (21:11)
[2018-01-24] MEDS: DOCUSATE SODIUM 100 MG CAPSULE PO SCH (21:11)
[2018-01-24] MEDS: TRAZODONE HCL 50 MG TABLET PO SCH (21:11)
[2018-01-25] MEDS: MECLIZINE HCL 25 MG TABLET PO SCH ×5 (00:51→23:30)
[2018-01-25] MEDS: PROMETHAZINE HCL INJ 25 MG/1 ML VIAL IV PRN ×4 (03:38→23:35)
[2018-01-25] MEDS: PIPERACILLIN SODIUM/TAZOBACTAM 3.375 GM in NORMAL SALINE 100 ML IV SCH ×4 (03:39→20:44)
[2018-01-25 04:45] LABS: HEMATOCRIT 26.2 % (37.9-51.0); HEMOGLOBIN 8.4 g/dL (13.5-17.0); MEAN CORPUSCULAR HEMOGLOBIN 21.5 pg (27.0-33.4); MEAN CORPUSCULAR HGB CONC 32.2 g/dL (32.0-36.0); MEAN CORPUSCULAR VOLUME 67 fl (80-97); PLATELET COUNT 346 10^3/uL (150-450); RED BLOOD COUNT 3.91 10^6/uL (4.35-5.55); RED CELL DISTRIBUTION WIDTH 22.5 % (11.5-14.0); WHITE BLOOD COUNT 8.6 10^3/uL (4.0-10.5)
[2018-01-25 05:00] LABS: ANION GAP 11 (5-19); BLOOD UREA NITROGEN 6 mg/dL (7-20); CALCIUM 9.1 mg/dL (8.4-10.2); CARBON DIOXIDE 29 mmol/L (22-30); CHLORIDE 101 mmol/L (98-107); GLUCOSE 94 mg/dL (75-110); POTASSIUM 3.9 mmol/L (3.6-5.0); SODIUM 140.7 mmol/L (137-145)
[2018-01-25] MEDS: VANCOMYCIN HCL 1,250 MG in DEXTROSE 5%-WATER 250 ML IV SCH ×3 (05:07→21:27)
[2018-01-25 06:37] LABS: ABSOLUTE LYMPHOCYTES# (MANUAL) 1.2 10^3/uL (0.5-4.7); ABSOLUTE MONOCYTES # (MANUAL) 0.5 10^3/uL (0.1-1.4); ABSOLUTE NEUTROPHILS# (MANUAL) 6.6 10^3/uL (1.7-8.2); BAND NEUTROPHILS % (MANUAL) 6 % (3-5); BASOPHILS % (MANUAL) 0 % (0-2); EOSINOPHILS % (MANUAL) 3 % (0-6); LYMPHOCYTES % (MANUAL) 14 % (13-45); MONOCYTES % (MANUAL) 6 % (3-13); SEGMENTED NEUTROPHILS % (MAN) 71 % (42-78); TOTAL CELLS COUNTED 100
[2018-01-25 06:38] LABS: ANISOCYTOSIS 3+; HYPOCHROMASIA 2+; PLATELET COMMENT ADEQUATE; SCHISTOCYTES SLIGHT
[2018-01-25] MEDS: CYCLOBENZAPRINE HCL 10 MG TABLET PO PRN ×3 (06:38→23:31)
--- NOTE | 2018-01-25 09:40 | PDOC PROGRESS REPORT ---
Subjective Progress Note for:: 01/25/18 Subjective:: Patient is ongoing neck problems currently on Valium and the Flexeril Patient also on the Lidoderm patch Other than that patient is denied any other symptom Reason For Visit: RECURRENT FALLS,VERTIGO,SYNCOPE Physical Exam Vital Signs: Temp Pulse Resp BP Pulse Ox 98.1 F 95 17 128/76 H 97 01/25/18 08:00 01/25/18 08:00 01/25/18 08:00 01/25/18 08:00 01/25/18 08:00 Intake & Output 01/24/18 01/25/18 01/26/18 06:59 06:59 06:59 Intake Total 4080 2684 Output Total 3389 9590 Balance 695 -1866 Weight 206.4 kg 204.9 kg General appearance: PRESENT: no acute distress, well-developed, well-nourished Head exam: PRESENT: atraumatic, normocephalic Eye exam: PRESENT: conjunctiva pink, EOMI, PERRLA. ABSENT: scleral icterus Ear exam: PRESENT: normal external ear exam Mouth exam: PRESENT: moist, tongue midline Neck exam: PRESENT: full ROM. ABSENT: carotid bruit, JVD, lymphadenopathy, thyromegaly Respiratory exam: PRESENT: clear to auscultation jorge Cardiovascular exam: PRESENT: RRR. ABSENT: diastolic murmur, rubs, systolic murmur Pulses: PRESENT: normal dorsalis pedis pul, +2 pedal pulses bilateral Vascular exam: PRESENT: normal capillary refill GI/Abdominal exam: PRESENT: normal bowel sounds, soft. ABSENT: distended, guarding, mass, organolmegaly, rebound, tenderness Rectal exam: PRESENT: deferred Extremities exam: ABSENT: pedal edema Neurological exam: PRESENT: alert, awake, oriented to person, oriented to place , oriented to time, oriented to situation, CN II-XII grossly intact. ABSENT: motor sensory deficit Psychiatric exam: PRESENT: appropriate affect, normal mood. ABSENT: homicidal ideation, suicidal ideation Skin exam: PRESENT: dry, intact, warm. ABSENT: cyanosis, rash Results Laboratory Results: 01/25/18 04:36 01/25/18 04:36 01/25/18 01/25/18 04:36 04:36 WBC 8.6 RBC 3.91 L Hgb 8.4 L Hct 26.2 L MCV 67 L MCH 21.5 L MCHC 32.2 RDW 22.5 H Plt Count 346 Seg Neutrophils % Not Reportable Lymphocytes % Not Reportable Monocytes % Not Reportable Eosinophils % Not Reportable Basophils % Not Reportable Absolute Neutrophils Not Reportable Absolute Lymphocytes Not Reportable Absolute Monocytes Not Reportable Absolute Eosinophils Not Reportable Absolute Basophils Not Reportable Sodium 140.7 Potassium 3.9 Chloride 101 Carbon Dioxide 29 Anion Gap 11 BUN 6 L Creatinine 0.63 Est GFR ( Amer) > 60 Est GFR (Non-Af Amer) > 60 Glucose 94 Calcium 9.1 Impressions: Head CT 01/12/18 07:10 IMPRESSION: No acute findings. Mild left maxillary-ethmoiditis. Abdomen/Pelvis CT 01/19/18 00:00 IMPRESSION: Limited study without IV or oral contrast. 1. Status post gastric surgery. Mildly dilated fluid-filled loops of small bowel which may represent ileus or developing obstruction. Follow-up imaging is recommended. 2. Small bilateral pleural effusions, left greater than right, with adjacent atelectasis and groundglass opacity. Chest X-Ray 01/19/18 00:00 IMPRESSION: Moderate left lower lobar pneumonia. Interval worsening. Guidance Fluoroscopy 01/21/18 00:00 IMPRESSION: SUCCESSFUL PLACEMENT OF A 5 FR DUAL LUMEN 39 CM PICC IN THE RIGHT BASILIC VEIN. Interventional Vascular Procedure 01/21/18 00:00 IMPRESSION: SUCCESSFUL PLACEMENT OF A 5 FR DUAL LUMEN 39 CM PICC IN THE RIGHT BASILIC VEIN. PICC Line Insertion 01/21/18 00:00 IMPRESSION: SUCCESSFUL PLACEMENT OF A 5 FR DUAL LUMEN 39 CM PICC IN THE RIGHT BASILIC VEIN. Assessment & Plan - Diagnosis (1) Diabetes mellitus type 2 in nonobese Is this a current diagnosis for this admission?: Yes (2) Fall in home Qualifiers: Encounter type: initial encounter Qualified Code(s): W19.XXXA - Unspecified fall, initial encounter; Y92.009 - Unspecified place in unspecified non-institutional (private) residence as the place of occurrence of the external cause; Y92.009 - Unspecified place in unspecified non-institutional ( private) residence as the place of occurrence of the external cause Is this a current diagnosis for this admission?: Yes (3) GERD (gastroesophageal reflux disease) Qualifiers: Esophagitis presence: esophagitis presence not specified Qualified Code(s) : K21.9 - Gastro-esophageal reflux disease without esophagitis Is this a current diagnosis for this admission?: Yes (4) Pneumonia Qualifiers: Pneumonia type: due to unspecified organism Laterality: left Lung location: lower lobe of lung Qualified Code(s): J18.1 - Lobar pneumonia, unspecified organism Is this a current diagnosis for this admission?: Yes (5) Vertigo Is this a current diagnosis for this admission?: Yes (6) Hypertension Qualifiers: Hypertension type: essential hypertension Qualified Code(s): I10 - Essential (primary) hypertension Is this a current diagnosis for this admission?: Yes (7) Vertigo, labyrinthine Qualifiers: Laterality: unspecified laterality Qualified Code(s): H81.09 - Meniere's disease, unspecified ear Is this a current diagnosis for this admission?: Yes (8) gastric bypass surgery status post Is this a current diagnosis for this admission?: Yes (9) Cervicalgia Is this a current diagnosis for this admission?: Yes Plan: Will get the x-ray of the C-spine continues to the current medications - Time Time Spent with patient: 15-24 minutes Medications reviewed and adjusted accordingly: Yes Anticipated discharge: Other Within: Other - Inpatient Certification Based on my medical assessment, after consideration of the patient's comorbidities, presenting symptoms, or acuity I expect that the services needed warrant INPATIENT care.: Yes I certify that my determination is in accordance with my understanding of Medicare's requirements for reasonable and necessary INPATIENT services [42 CFR 412.3e].: Yes Medical Necessity: Need Close Monitoring Due to Risk of Patient Decompensation Post Hospital 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
[2018-01-25] MEDS ORDERED: VANCOMYCIN HCL 0 MG in DEXTROSE 5%-WATER 250 ML IV NR (09:45)
[2018-01-25] MEDS: LACTULOSE SYRUP 20 GM/30 ML UDCUP PO PRN (10:11)
[2018-01-25] MEDS: POLYETHYLENE GLYCOL 3350 POWDER 17 GM/1 PACKET PO SCH (10:12)
[2018-01-25] MEDS: ACETAMINOPHEN 325 MG TABLET PO PRN ×2 (10:12→21:27)
[2018-01-25] MEDS: LIDOCAINE 5% (700 MG) TRANSDERMAL ADH..PATCH TP SCH (10:13)
[2018-01-25] MEDS: ESCITALOPRAM OXALATE 10 MG TABLET PO SCH (10:13)
[2018-01-25] MEDS: QUETIAPINE FUMARATE 100 MG TABLET PO SCH ×2 (10:13→21:26)
[2018-01-25] MEDS: NORMAL SALINE 10 ML SDV (SCHEDULED) IV SCH ×2 (10:14→21:26)
[2018-01-25] MEDS: ONDANSETRON HCL INJ/PF 4 MG/2 ML SDV IV PRN (10:18)
[2018-01-25] MEDS: DIAZEPAM 5 MG TABLET PO PRN ×2 (10:18→18:38)
--- NOTE | 2018-01-25 11:16 | RADIOLOGY REPORT (SQ) ---
EXAM DESCRIPTION: CERV SP 3 VIEW OR LESS COMPLETED DATE/TIME: 01/25/2018 10:53 am REASON FOR STUDY: cervalgia E11.65 TYPE 2 DIABETES MELLITUS WITH HYPERGLYCEMIA R55 SYNCOPE AND COL LAPSE D64.9 ANEMIA, UNSPECIFIED COMPARISON: None. NUMBER OF VIEWS: Three views. TECHNIQUE: AP, lateral and odontoid radiographic images acquired of the cervical spine. LIMITATIONS: None. FINDINGS: MINERALIZATION: Normal. ALIGNMENT: Anatomic. VERTEBRAE: Vertebral bodies of normal height. DISCS: Diffuse disc space loss of height with mild anterior and posterior osteophyte formation at C3- 4, C4-5, C5-6, and C6-7. High-grade bilateral foraminal stenosis at C3-4, C5-6, and C6-7 HARDWARE: None in the spine. SOFT TISSUES: 7 mm left neck soft tissue air bubble with asymmetric left-sided neck soft tissue swell ing. OTHER: No other significant finding. IMPRESSION: No acute fracture or malalignment. Diffuse cervical disc disease with multilevel forami nal narrowing. Left neck soft tissue swelling with 7 mm air bubble projected over the left neck soft tissues TECHNICAL DOCUMENTATION: JOB ID: [id number] [employer]- All Rights Reserved Reading location - IP/workstation name: [email or web address]
--- NOTE | 2018-01-25 11:17 | RADIOLOGY REPORT (SQ) ---
EXAM DESCRIPTION: CHEST 2 VIEWS COMPLETED DATE/TIME: 01/25/2018 10:53 am REASON FOR STUDY: pnemonia COMPARISON: Two-view chest 01/19/2018, 01/16/2018, 01/10/2018 EXAM PARAMETERS: NUMBER OF VIEWS: two views TECHNIQUE: Digital Frontal and Lateral radiographic views of the chest acquired. RADIATION DOSE: NA LIMITATIONS: none FINDINGS: LUNGS AND PLEURA: Left basilar consolidation has partially cleared compared to 01/19/2018. Remainder of the lungs are grossly clear. No pleural effusion. No pneumothorax. MEDIASTINUM AND HILAR STRUCTURES: No masses or contour abnormalities. HEART AND VASCULAR STRUCTURES: Heart normal size. No evidence for failure. BONES: No acute findings. HARDWARE: PICC line tip superior vena cava OTHER: No other significant finding. IMPRESSION: Partial clearing of the left lower lobe pneumonia TECHNICAL DOCUMENTATION: JOB ID: [id number] [employer]- All Rights Reserved Reading location - IP/workstation name: [email or web address]
[2018-01-25] MEDS: BENZONATATE 100 MG CAPSULE PO PRN ×2 (12:29→23:31)
[2018-01-25] MEDS: BUTALB/ACETAMINOPHEN/CAFFEINE 1 TAB EACH PO PRN (19:53)
[2018-01-25] MEDS: TRAZODONE HCL 50 MG TABLET PO SCH (21:25)
[2018-01-25] MEDS: DOCUSATE SODIUM 100 MG CAPSULE PO SCH (21:25)
[2018-01-25] MEDS: OLANZAPINE 5 MG TABLET PO SCH (21:26)
[2018-01-25] MEDS: BENZOCAINE/MENTHOL SORE THROAT LOZENGE BUCCAL PRN (23:31)
[2018-01-26] MEDS: PIPERACILLIN SODIUM/TAZOBACTAM 3.375 GM in NORMAL SALINE 100 ML IV SCH ×4 (02:19→20:49)
[2018-01-26] MEDS: DIAZEPAM 5 MG TABLET PO PRN ×2 (03:14→16:25)
[2018-01-26] MEDS: ONDANSETRON HCL INJ/PF 4 MG/2 ML SDV IV PRN ×2 (04:59→16:25)
[2018-01-26] MEDS: VANCOMYCIN HCL 1,250 MG in DEXTROSE 5%-WATER 250 ML IV SCH ×3 (04:59→21:14)
[2018-01-26] MEDS: BUTALB/ACETAMINOPHEN/CAFFEINE 1 TAB EACH PO PRN ×2 (04:59→20:48)
[2018-01-26] MEDS: MECLIZINE HCL 25 MG TABLET PO SCH ×3 (04:59→19:21)
[2018-01-26 05:27] LABS: HEMATOCRIT 28.1 % (37.9-51.0); MEAN CORPUSCULAR HEMOGLOBIN 21.4 pg (27.0-33.4); MEAN CORPUSCULAR HGB CONC 32.2 g/dL (32.0-36.0); MEAN CORPUSCULAR VOLUME 67 fl (80-97); PLATELET COUNT 406 10^3/uL (150-450); RED BLOOD COUNT 4.21 10^6/uL (4.35-5.55); RED CELL DISTRIBUTION WIDTH 22.2 % (11.5-14.0); WHITE BLOOD COUNT 10.8 10^3/uL (4.0-10.5)
[2018-01-26 05:51] LABS: ALANINE AMINOTRANSFERASE 33 U/L (21-72); ALBUMIN 3.3 g/dL (3.5-5.0); ALKALINE PHOSPHATASE 84 U/L (38-126); ANION GAP 12 (5-19); ASPARTATE AMINO TRANSFERASE 21 U/L (17-59); BILIRUBIN,DIRECT 0.2 mg/dL (0.0-0.4); BILIRUBIN,TOTAL 0.3 mg/dL (0.2-1.3); BLOOD UREA NITROGEN 4 mg/dL (7-20); CALCIUM 9.3 mg/dL (8.4-10.2); CARBON DIOXIDE 29 mmol/L (22-30); CHLORIDE 101 mmol/L (98-107); GLUCOSE 100 mg/dL (75-110); PHOSPHORUS 3.7 mg/dL (2.5-4.5); SODIUM 142.1 mmol/L (137-145); TOTAL PROTEIN 6.7 g/dL (6.3-8.2)
[2018-01-26 05:57] LABS: PREALBUMIN 13.9 mg/dL (17.6-36.0)
[2018-01-26] MEDS: ESCITALOPRAM OXALATE 10 MG TABLET PO SCH (09:23)
[2018-01-26] MEDS: CYCLOBENZAPRINE HCL 10 MG TABLET PO PRN ×2 (09:23→19:24)
[2018-01-26] MEDS: NORMAL SALINE 10 ML SDV (SCHEDULED) IV SCH ×2 (09:24→21:13)
[2018-01-26] MEDS: POLYETHYLENE GLYCOL 3350 POWDER 17 GM/1 PACKET PO SCH (09:24)
[2018-01-26] MEDS: LIDOCAINE 5% (700 MG) TRANSDERMAL ADH..PATCH TP SCH (09:26)
[2018-01-26] MEDS: PROMETHAZINE HCL INJ 25 MG/1 ML VIAL IV PRN ×2 (11:05→20:48)
[2018-01-26] MEDS: ACETAMINOPHEN 325 MG TABLET PO PRN (12:19)
[2018-01-26] MEDS: QUETIAPINE FUMARATE 100 MG TABLET PO SCH ×2 (12:19→21:14)
--- NOTE | 2018-01-26 20:48 | PDOC PROGRESS REPORT ---
Subjective Progress Note for:: 01/26/18 Subjective:: Patient was seen by the bedside, he complained of neck pain, the chest x-ray was done today suggests improvement in pneumonic process Reason For Visit: RECURRENT FALLS,VERTIGO,SYNCOPE Physical Exam Vital Signs: Temp Pulse Resp BP Pulse Ox 98.6 F 94 16 143/94 H 98 01/26/18 19:41 01/26/18 19:41 01/26/18 19:41 01/26/18 19:41 01/26/18 19:41 Intake & Output 01/25/18 01/26/18 01/27/18 06:59 06:59 06:59 Intake Total 2684 5802 810 Output Total 4550 5905 2800 [facility] -[id number] Weight 204.9 kg 92.5 kg General appearance: PRESENT: no acute distress Eye exam: PRESENT: PERRLA Respiratory exam: PRESENT: rhonchi Cardiovascular exam: PRESENT: +S1, +S2 GI/Abdominal exam: PRESENT: soft Neurological exam: PRESENT: alert Results Laboratory Results: 01/26/18 05:00 01/26/18 05:00 01/26/18 01/26/18 05:00 05:00 WBC 10.8 H RBC 4.21 L Hgb 9.0 L Hct 28.1 L MCV 67 L MCH 21.4 L MCHC 32.2 RDW 22.2 H Plt Count 406 Sodium 142.1 Potassium 4.0 Chloride 101 Carbon Dioxide 29 Anion Gap 12 BUN 4 L Creatinine 0.60 Est GFR ( Amer) > 60 Est GFR (Non-Af Amer) > 60 Glucose 100 Calcium 9.3 Phosphorus 3.7 Magnesium 2.0 Total Bilirubin 0.3 AST 21 ALT 33 Alkaline Phosphatase 84 Total Protein 6.7 Albumin 3.3 L Prealbumin 13.9 L Impressions: Head CT 01/12/18 07:10 IMPRESSION: No acute findings. Mild left maxillary-ethmoiditis. Abdomen/Pelvis CT 01/19/18 00:00 IMPRESSION: Limited study without IV or oral contrast. 1. Status post gastric surgery. Mildly dilated fluid-filled loops of small bowel which may represent ileus or developing obstruction. Follow-up imaging is recommended. 2. Small bilateral pleural effusions, left greater than right, with adjacent atelectasis and groundglass opacity. Guidance Fluoroscopy 01/21/18 00:00 IMPRESSION: SUCCESSFUL PLACEMENT OF A 5 FR DUAL LUMEN 39 CM PICC IN THE RIGHT BASILIC VEIN. Interventional Vascular Procedure 01/21/18 00:00 IMPRESSION: SUCCESSFUL PLACEMENT OF A 5 FR DUAL LUMEN 39 CM PICC IN THE RIGHT BASILIC VEIN. PICC Line Insertion 01/21/18 00:00 IMPRESSION: SUCCESSFUL PLACEMENT OF A 5 FR DUAL LUMEN 39 CM PICC IN THE RIGHT BASILIC VEIN. Cervical Spine X-Ray 01/25/18 00:00 IMPRESSION: No acute fracture or malalignment. Diffuse cervical disc disease with multilevel foraminal narrowing. Left neck soft tissue swelling with 7 mm air bubble projected over the left neck soft tissues Chest X-Ray 01/25/18 00:00 IMPRESSION: Partial clearing of the left lower lobe pneumonia Assessment & Plan - Diagnosis (1) Intractable vomiting Qualifiers: Vomiting type: unspecified Nausea presence: with nausea Qualified Code(s) : R11.2 - Nausea with vomiting, unspecified Is this a current diagnosis for this admission?: Yes (2) GERD (gastroesophageal reflux disease) Qualifiers: Esophagitis presence: esophagitis presence not specified Qualified Code(s) : K21.9 - Gastro-esophageal reflux disease without esophagitis Is this a current diagnosis for this admission?: Yes (3) Anastomotic ulcer Is this a current diagnosis for this admission?: Yes (4) Pneumonia Qualifiers: Pneumonia type: due to unspecified organism Laterality: left Lung location: lower lobe of lung Qualified Code(s): J18.1 - Lobar pneumonia, unspecified organism Is this a current diagnosis for this admission?: Yes (5) Abdominal distension Is this a current diagnosis for this admission?: Yes (6) Nosocomial pneumonia Is this a current diagnosis for this admission?: Yes Plan: Continue antibiotic hopefully discharge home in a day or 2
[2018-01-26] MEDS: DOCUSATE SODIUM 100 MG CAPSULE PO SCH (21:13)
[2018-01-26] MEDS: TRAZODONE HCL 50 MG TABLET PO SCH (21:13)
[2018-01-26] MEDS: HYDROMORPHONE HCL INJ/PF 2 MG/ML AMPULE IV PRN (21:14)
[2018-01-26] MEDS: OLANZAPINE 5 MG TABLET PO SCH (21:14)
[2018-01-27] MEDS: MECLIZINE HCL 25 MG TABLET PO SCH ×4 (02:22→17:58)
[2018-01-27] MEDS: PIPERACILLIN SODIUM/TAZOBACTAM 3.375 GM in NORMAL SALINE 100 ML IV SCH ×3 (02:26→15:41)
[2018-01-27] MEDS: HYDROMORPHONE HCL INJ/PF 2 MG/ML AMPULE IV PRN ×5 (02:26→21:10)
[2018-01-27] MEDS: PROMETHAZINE HCL INJ 25 MG/1 ML VIAL IV PRN ×5 (02:27→21:11)
[2018-01-27] MEDS: ONDANSETRON HCL INJ/PF 4 MG/2 ML SDV IV PRN (03:54)
[2018-01-27] MEDS: CYCLOBENZAPRINE HCL 10 MG TABLET PO PRN ×2 (03:54→12:40)
[2018-01-27] MEDS: VANCOMYCIN HCL 1,250 MG in DEXTROSE 5%-WATER 250 ML IV SCH ×3 (05:19→21:10)
[2018-01-27 06:15] LABS: ANION GAP 11 (5-19); BLOOD UREA NITROGEN 5 mg/dL (7-20); CALCIUM 9.4 mg/dL (8.4-10.2); CARBON DIOXIDE 29 mmol/L (22-30); CHLORIDE 102 mmol/L (98-107); GLUCOSE 99 mg/dL (75-110); POTASSIUM 4.1 mmol/L (3.6-5.0); SODIUM 141.6 mmol/L (137-145)
[2018-01-27] MEDS: DIAZEPAM 5 MG TABLET PO PRN ×2 (08:29→19:37)
[2018-01-27 09:51] LABS: HEMATOCRIT 28.3 % (37.9-51.0); HEMOGLOBIN 8.8 g/dL (13.5-17.0); MEAN CORPUSCULAR HEMOGLOBIN 20.7 pg (27.0-33.4); MEAN CORPUSCULAR HGB CONC 31.2 g/dL (32.0-36.0); MEAN CORPUSCULAR VOLUME 67 fl (80-97); PLATELET COUNT 428 10^3/uL (150-450); RED BLOOD COUNT 4.25 10^6/uL (4.35-5.55); RED CELL DISTRIBUTION WIDTH 22.2 % (11.5-14.0); WHITE BLOOD COUNT 12.1 10^3/uL (4.0-10.5)
[2018-01-27 10:13] LABS: ALANINE AMINOTRANSFERASE 27 U/L (21-72); ALBUMIN 3.3 g/dL (3.5-5.0); ALKALINE PHOSPHATASE 75 U/L (38-126); ANION GAP 11 (5-19); ASPARTATE AMINO TRANSFERASE 17 U/L (17-59); BILIRUBIN,DIRECT 0.2 mg/dL (0.0-0.4); BILIRUBIN,TOTAL 0.3 mg/dL (0.2-1.3); BLOOD UREA NITROGEN 5 mg/dL (7-20); CALCIUM 9.3 mg/dL (8.4-10.2); CARBON DIOXIDE 28 mmol/L (22-30); CHLORIDE 101 mmol/L (98-107); GLUCOSE 150 mg/dL (75-110); POTASSIUM 4.1 mmol/L (3.6-5.0); TOTAL PROTEIN 6.6 g/dL (6.3-8.2)
[2018-01-27 10:23] LABS: ABSOLUTE LYMPHOCYTES# (MANUAL) 1.5 10^3/uL (0.5-4.7); ABSOLUTE MONOCYTES # (MANUAL) 0.7 10^3/uL (0.1-1.4); ABSOLUTE NEUTROPHILS# (MANUAL) 9.3 10^3/uL (1.7-8.2); BAND NEUTROPHILS % (MANUAL) 1 % (3-5); BASOPHILS % (MANUAL) 2 % (0-2); EOSINOPHILS % (MANUAL) 3 % (0-6); LYMPHOCYTES % (MANUAL) 12 % (13-45); METAMYELOCYTES % (MANUAL) 2 % (0); MONOCYTES % (MANUAL) 6 % (3-13); SEGMENTED NEUTROPHILS % (MAN) 73 % (42-78); TOTAL CELLS COUNTED 100
[2018-01-27 10:24] LABS: MYELOCYTES % (MANUAL) 1 % (0)
[2018-01-27 10:26] LABS: ANISOCYTOSIS 2+; HYPOCHROMASIA 1+; OVALOCYTES 2+; PLATELET COMMENT ADEQUATE; POIKILOCYTOSIS 2+; POLYCHROMASIA 1+; TOXIC GRANULATION SLIGHT; TOXIC VACUOLATION PRESENT
[2018-01-27] MEDS: QUETIAPINE FUMARATE 100 MG TABLET PO SCH ×2 (11:41→21:10)
[2018-01-27] MEDS: ESCITALOPRAM OXALATE 10 MG TABLET PO SCH (11:41)
[2018-01-27] MEDS: POLYETHYLENE GLYCOL 3350 POWDER 17 GM/1 PACKET PO SCH (11:41)
[2018-01-27] MEDS: LIDOCAINE 5% (700 MG) TRANSDERMAL ADH..PATCH TP SCH (11:42)
[2018-01-27] MEDS: NORMAL SALINE 10 ML SDV (SCHEDULED) IV SCH ×2 (12:17→21:09)
[2018-01-27] MEDS: BUTALB/ACETAMINOPHEN/CAFFEINE 1 TAB EACH PO PRN ×2 (14:48→19:37)
--- NOTE | 2018-01-27 20:19 | PDOC PROGRESS REPORT ---
Subjective Progress Note for:: 01/27/18 Subjective:: Patient continues to improve, hopefully discharge home tomorrow Reason For Visit: RECURRENT FALLS,VERTIGO,SYNCOPE Physical Exam Vital Signs: Temp Pulse Resp BP Pulse Ox 97.6 F 100 18 143/96 H 100 01/27/18 15:09 01/27/18 19:00 01/27/18 15:09 01/27/18 15:09 01/27/18 15:09 Intake & Output 01/26/18 01/27/18 01/28/18 06:59 06:59 06:59 Intake Total 5802 2083 1539 Output Total 5906 3100 1690 Balance -103 -1017 -151 Weight 92.5 kg 92.5 kg General appearance: PRESENT: no acute distress Eye exam: PRESENT: PERRLA Respiratory exam: PRESENT: clear to auscultation jorge Cardiovascular exam: PRESENT: +S1, +S2 GI/Abdominal exam: PRESENT: soft Neurological exam: PRESENT: alert Results Laboratory Results: 01/27/18 09:00 01/27/18 09:00 01/27/18 01/27/18 01/27/18 05:30 09:00 09:00 WBC 12.1 H RBC 4.25 L Hgb 8.8 L Hct 28.3 L MCV 67 L MCH 20.7 L MCHC 31.2 L RDW 22.2 H Plt Count 428 Seg Neutrophils % Not Reportable Lymphocytes % Not Reportable Monocytes % Not Reportable Eosinophils % Not Reportable Basophils % Not Reportable Absolute Neutrophils Not Reportable Absolute Lymphocytes Not Reportable Absolute Monocytes Not Reportable Absolute Eosinophils Not Reportable Absolute Basophils Not Reportable Sodium 141.6 140.0 Potassium 4.1 4.1 Chloride 102 101 Carbon Dioxide 29 28 Anion Gap 11 11 BUN 5 L 5 L Creatinine 0.66 0.63 Est GFR ( Amer) > 60 > 60 Est GFR (Non-Af Amer) > 60 > 60 Glucose 99 150 H Calcium 9.4 9.3 Total Bilirubin 0.3 AST 17 ALT 27 Alkaline Phosphatase 75 Total Protein 6.6 Albumin 3.3 L Impressions: Head CT 01/12/18 07:10 IMPRESSION: No acute findings. Mild left maxillary-ethmoiditis. Abdomen/Pelvis CT 01/19/18 00:00 IMPRESSION: Limited study without IV or oral contrast. 1. Status post gastric surgery. Mildly dilated fluid-filled loops of small bowel which may represent ileus or developing obstruction. Follow-up imaging is recommended. 2. Small bilateral pleural effusions, left greater than right, with adjacent atelectasis and groundglass opacity. Guidance Fluoroscopy 01/21/18 00:00 IMPRESSION: SUCCESSFUL PLACEMENT OF A 5 FR DUAL LUMEN 39 CM PICC IN THE RIGHT BASILIC VEIN. Interventional Vascular Procedure 01/21/18 00:00 IMPRESSION: SUCCESSFUL PLACEMENT OF A 5 FR DUAL LUMEN 39 CM PICC IN THE RIGHT BASILIC VEIN. PICC Line Insertion 01/21/18 00:00 IMPRESSION: SUCCESSFUL PLACEMENT OF A 5 FR DUAL LUMEN 39 CM PICC IN THE RIGHT BASILIC VEIN. Cervical Spine X-Ray 01/25/18 00:00 IMPRESSION: No acute fracture or malalignment. Diffuse cervical disc disease with multilevel foraminal narrowing. Left neck soft tissue swelling with 7 mm air bubble projected over the left neck soft tissues Chest X-Ray 01/25/18 00:00 IMPRESSION: Partial clearing of the left lower lobe pneumonia Assessment & Plan - Diagnosis (1) Intractable vomiting Qualifiers: Vomiting type: unspecified Nausea presence: with nausea Qualified Code(s) : R11.2 - Nausea with vomiting, unspecified Is this a current diagnosis for this admission?: Yes (2) GERD (gastroesophageal reflux disease) Qualifiers: Esophagitis presence: esophagitis presence not specified Qualified Code(s) : K21.9 - Gastro-esophageal reflux disease without esophagitis Is this a current diagnosis for this admission?: Yes (3) Anastomotic ulcer Is this a current diagnosis for this admission?: Yes (4) Pneumonia Qualifiers: Pneumonia type: due to unspecified organism Laterality: left Lung location: lower lobe of lung Qualified Code(s): J18.1 - Lobar pneumonia, unspecified organism Is this a current diagnosis for this admission?: Yes (5) Abdominal distension Is this a current diagnosis for this admission?: Yes (6) Nosocomial pneumonia Is this a current diagnosis for this admission?: Yes
[2018-01-27] MEDS: TRAZODONE HCL 50 MG TABLET PO SCH (21:09)
[2018-01-27] MEDS: OLANZAPINE 5 MG TABLET PO SCH (21:09)
[2018-01-27] MEDS: DOCUSATE SODIUM 100 MG CAPSULE PO SCH (21:09)
[2018-01-28] MEDS: BUTALB/ACETAMINOPHEN/CAFFEINE 1 TAB EACH PO PRN (00:15)
[2018-01-28] MEDS: CYCLOBENZAPRINE HCL 10 MG TABLET PO PRN ×2 (00:16→08:39)
[2018-01-28] MEDS: MECLIZINE HCL 25 MG TABLET PO SCH ×3 (04:17→12:57)
[2018-01-28] MEDS: HYDROMORPHONE HCL INJ/PF 2 MG/ML AMPULE IV PRN ×3 (04:20→12:53)
[2018-01-28] MEDS: PROMETHAZINE HCL INJ 25 MG/1 ML VIAL IV PRN ×2 (04:21→11:45)
[2018-01-28] MEDS: VANCOMYCIN HCL 1,250 MG in DEXTROSE 5%-WATER 250 ML IV SCH (05:37)
[2018-01-28] MEDS: DIAZEPAM 5 MG TABLET PO PRN (06:58)
[2018-01-28] MEDS: ACETAMINOPHEN 325 MG TABLET PO PRN ×2 (06:59→14:36)
[2018-01-28 07:40] LABS: VANCOMYCIN,TROUGH 20.4 ug/mL (5.0-20.0)
[2018-01-28] MEDS: QUETIAPINE FUMARATE 100 MG TABLET PO SCH (10:26)
[2018-01-28] MEDS: ESCITALOPRAM OXALATE 10 MG TABLET PO SCH (10:26)
[2018-01-28] MEDS: POLYETHYLENE GLYCOL 3350 POWDER 17 GM/1 PACKET PO SCH (10:26)
[2018-01-28] MEDS: NORMAL SALINE 10 ML SDV (SCHEDULED) IV SCH (10:28)
[2018-01-28] MEDS: LIDOCAINE 5% (700 MG) TRANSDERMAL ADH..PATCH TP SCH (10:29)
[2018-01-28 13:14] LABS: PATH REVIEW PATHOLOGIST REVIEWED
[2018-01-28] MEDS ORDERED: VANCOMYCIN HCL 1,000 MG in DEXTROSE 5%-WATER 250 ML IV SCH (14:00)
--- NOTE | 2018-01-28 15:51 | PDOC DISCHARGE SUMMARY ---
General - Admit/Disc Date/PCP Admission Date/Primary Care Provider: 01/12/18 16:45 MERYL ORNELAS MD Discharge Date: 01/28/18 - Discharge Diagnosis (1) Intractable vomiting Is this a current diagnosis for this admission?: Yes (2) GERD (gastroesophageal reflux disease) Is this a current diagnosis for this admission?: Yes (3) Anastomotic ulcer Is this a current diagnosis for this admission?: Yes (4) Abdominal distension Is this a current diagnosis for this admission?: Yes (5) Nosocomial pneumonia Is this a current diagnosis for this admission?: Yes (6) Anemia Is this a current diagnosis for this admission?: Yes - Additional Information Resuscitation Status: Full Code Home Medications: Escitalopram Oxalate [Lexapro] 40 mg PO DAILY 03/26/17 Olanzapine [Zyprexa] 20 mg PO QHS 03/26/17 Quetiapine Fumarate [Seroquel] 600 mg PO QHS 03/26/17 Trazodone HCl [Desyrel] 100 mg PO QHS 03/26/17 Linaclotide [Linzess] 290 mcg PO DAILY 09/23/17 Meclizine HCl 25 mg PO BID 12/09/17 Omeprazole 40 mg PO BID 12/09/17 Acetaminophen [Tylenol 325 mg Tablet] 650 mg PO Q4HP PRN tablet 01/28/18 History of Present Illness History of Present Illness: YESSY ALMODOVAR is a 52 year old male presented to the emergency room on January 10, 2018 for evaluation of recurrent falls and vertigo, the vomiting could not be controlled in the emergency room hospitalization was recommended for further evaluation and management of this patient. He has a history of gastric bypass complicated with persistent anastomotic ulcer with recurrent vomiting, he is scheduled for evaluation of the procedure in mid January. Hospital Course Hospital Course: Patient was admitted initially for hydration with IV fluid because of persistent vomiting, hospital course was prolonged and complicated. He was not able to keep any food down, the vomiting has been persistent and prolonged for many months, he is scheduled for revision of the gastric bypass surgery that was done. The treating surgeon wants his nutritional status improves before the surgery. Because patient was not able to keep any food down he was treated with TPN because he has no normal functioning GI tract at this time. I felt there was no need to do another endoscopy,He has had multiple upper GI endoscopy and colonoscopy done within the last year. Hospital course was complicated with nosocomial pneumonia, he was empirically treated with vancomycin and Zosyn to cover potential pathogens. He had total parenteral nutrition for 1 week before this was transition back to regular food intake. He also had anemia requiring blood transfusion. He complains of neck pain, he has very hign penchant narcotics, he kept asking for opioid therapy for the control of pain and also antiemetics, he stated that diazepam controlled his vertigo symptoms. Physical Exam Vital Signs: Temp Pulse Resp BP Pulse Ox 98.3 F 105 H 18 124/72 95 01/28/18 12:00 01/28/18 12:00 01/28/18 12:00 01/28/18 12:00 01/28/18 12:00 Intake & Output 01/27/18 01/28/18 01/29/18 06:59 06:59 06:59 Intake Total 2083 2344 250 Output Total 3100 2390 Balance -1017 -46 250 Weight 92.5 kg 92.5 kg General appearance: PRESENT: no acute distress Eye exam: PRESENT: PERRLA Respiratory exam: PRESENT: clear to auscultation jorge Cardiovascular exam: PRESENT: +S1, +S2 GI/Abdominal exam: PRESENT: soft Neurological exam: PRESENT: alert Results Laboratory Results: 01/27/18 09:00 01/27/18 09:00 Impressions: Head CT 01/12/18 07:10 IMPRESSION: No acute findings. Mild left maxillary-ethmoiditis. Abdomen/Pelvis CT 01/19/18 00:00 IMPRESSION: Limited study without IV or oral contrast. 1. Status post gastric surgery. Mildly dilated fluid-filled loops of small bowel which may represent ileus or developing obstruction. Follow-up imaging is recommended. 2. Small bilateral pleural effusions, left greater than right, with adjacent atelectasis and groundglass opacity. Guidance Fluoroscopy 01/21/18 00:00 IMPRESSION: SUCCESSFUL PLACEMENT OF A 5 FR DUAL LUMEN 39 CM PICC IN THE RIGHT BASILIC VEIN. Interventional Vascular Procedure 01/21/18 00:00 IMPRESSION: SUCCESSFUL PLACEMENT OF A 5 FR DUAL LUMEN 39 CM PICC IN THE RIGHT BASILIC VEIN. PICC Line Insertion 01/21/18 00:00 IMPRESSION: SUCCESSFUL PLACEMENT OF A 5 FR DUAL LUMEN 39 CM PICC IN THE RIGHT BASILIC VEIN. Cervical Spine X-Ray 01/25/18 00:00 IMPRESSION: No acute fracture or malalignment. Diffuse cervical disc disease with multilevel foraminal narrowing. Left neck soft tissue swelling with 7 mm air bubble projected over the left neck soft tissues Chest X-Ray 01/25/18 00:00 IMPRESSION: Partial clearing of the left lower lobe pneumonia Qualifiers - * PATIENT BEING DISCHARGED WITH ANY OF THE FOLLOWING DIAGNOSIS: No
[2018-01-28 16:22] VITALS: BP 138/94
== END 2018-01-28 16:51 | disposition home or self-care (01) | DRG 391 ==
LOC: ER 06:50 → EH 14:48 → 4N 15:36 → OBSVTOIN 01-12 16:45
PROVIDERS: ADMIT Internal Medicine; ATTEND Internal Medicine
PROC: 30233N1 Transfusion of Nonautologous Red Blood Cells into Peripheral Vein, Percutaneous Approach (ICD-10-PCS; principal; 2018-01-11)
PROC: 02HV33Z Insertion of Infusion Device into Superior Vena Cava, Percutaneous Approach (ICD-10-PCS; 2018-01-12)
PROC: 02HV33Z Insertion of Infusion Device into Superior Vena Cava, Percutaneous Approach (ICD-10-PCS; 2018-01-21)
PROC: B548ZZA Ultrasonography of Superior Vena Cava, Guidance (ICD-10-PCS; 2018-01-21)
PROC: B5181ZA Fluoroscopy of Superior Vena Cava using Low Osmolar Contrast, Guidance (ICD-10-PCS; 2018-01-21)
DX: R11.10 Vomiting, unspecified (principal); J18.1 Lobar pneumonia, unspecified organism; K63.3 Ulcer of intestine; F31.61 Bipolar disorder, current episode mixed, mild; Y95 Nosocomial condition; E11.65 Type 2 diabetes mellitus with hyperglycemia; D64.9 Anemia, unspecified; K21.9 Gastro-esophageal reflux disease without esophagitis; Z98.84 Bariatric surgery status; I10 Essential (primary) hypertension; M19.90 Unspecified osteoarthritis, unspecified site; Z79.899 Other long term (current) drug therapy; Z89.511 Acquired absence of right leg below knee; Z88.8 Allergy status to other drugs, medicaments and biological substances
CPT/HCPCS: 36415; 36430; 36569; 70450; 71045; 71046; 72040; 74018; 74176; 76937; 77001; 80048; 80053; 80202; 81001; 82272; 82962; 83690; 83735; 84100; 84134; 84478; 84484; 85025; 85027; 85379; 85610; 86850; 86900; 86901; 86920; 93005; 93010; 96361; 96374; 96375; 99285; C1751; G0378; G8978-GP; G8979-GP; G8996-GN; G8997-GN; G8998-GN; J1170; J1642; J1815; J1940; J1956; J2405; J2543; J2550; J3360; J3370; J3490; J7030; J7060; P9016

== ENCOUNTER 2018-01-29 08:18 | Emergency (ER) | payer MEDICARE, MEDICAID ==
--- NOTE | 2018-01-29 08:39 | ER Document Report ---
ED General - General Chief Complaint: Altered Mental Status Stated Complaint: DIZZINESS Time Seen by Provider: 01/29/18 08:39 Notes: Patient is a 52-year-old male that presents to the emergency department for chief complaint of knee pain after falling and drowsiness. Patient apparently took his sleeping medications this morning, and is now very drowsy and he fell in his shower, he took his Seroquel, and trazodone. He states he fell 3 times in his shower, he has pain in his Left knee, he has a total knee arthroplasty on the left. He apparently did not hit his head, but is complaining of a headache, that started last night. Denies having any nausea, vomiting, abdominal pain, chest pain or shortness of breath. Patient was recently discharged from the hospital yesterday. Patient reports being up-to-date on his tetanus vaccination. He reports that he frequently falls due to chronic vertigo, and was recently in the hospital for the same reason. He denies any chest pain, shortness of breath, nausea, vomiting, or abdominal pain at this time. He also denies any numbness, weakness, or paresthesias. Past Medical History: Vertigo, HTN, Chronic pain, frequent falls, PUD, bipolar disorder Past Surgical History: gastric bypass, perforated ulcer repair, multiple EGDS Social History: denies tobacco, alcohol, or illicit drug use Family History: Reviewed and noncontributory for presenting illness Allergies: Reviewed, see documented allergy list. REVIEW OF SYSTEMS: Other than noted above, the 12 point review of systems was reviewed with the patient and were negative, all pertinent findings are included in the HPI. PHYSICAL EXAMINATION: Vital signs reviewed, nursing noted reviewed. GENERAL: Somnolent, but will answer questions appropriately HEAD: Atraumatic, normocephalic. EYES: Eyes appear normal, extraocular movements intact, sclera anicteric, conjunctiva are normal. ENT: nares patent, oropharynx clear without exudates. Moist mucous membranes. NECK: Normal range of motion, supple without lymphadenopathy, mild bilateral paraspinal tenderness to palpation LUNGS: Breath sounds clear to auscultation bilaterally and equal. No wheezes rales or rhonchi. HEART: Regular rate and rhythm without murmurs ABDOMEN: Soft, nontender, normoactive bowel sounds. No rebound, guarding, or rigidity. No masses appreciated. EXTREMITIES: Mild left knee joint tenderness with palpation, there is superficial abrasions over the knee, but he has good range of motion of that knee. Otherwise the extremities are Nontender, good range of motion, no pitting or edema. Right below the knee amputation noted. NEUROLOGICAL: No focal neurological deficits. Moves all extremities spontaneously Motor and sensory grossly intact on exam. PSYCH: Flat affect, somnolent will answer questions appropriately SKIN: Warm, Dry, normal turgor, no rashes or lesions noted on exposed skin TRAVEL OUTSIDE OF THE [place] IN LAST 30 DAYS: No - Related Data Allergies/Adverse Reactions: aripiprazole [From [facility]] Adverse Reaction (Severe, Verified 12/24/17 09:48) "uncontrollable muscle tremors" Past Medical History - Social History Smoking Status: Never Smoker Family History: Reviewed & Not Pertinent, CAD, Hypertension, Other - ulcers father and sister - Past Medical History Cardiac Medical History: Reports: Hx Hypertension Denies: Hx Coronary Artery Disease, Hx Heart Attack, Hx Heart Murmur Pulmonary Medical History: Denies: Hx Asthma, Hx Bronchitis, Hx COPD, Hx Pneumonia Neurological Medical History: Denies: Hx Cerebrovascular Accident, Hx Seizures Endocrine Medical History: Reports: Hx Diabetes Mellitus Type 2 - Since gastric bypass has been able to stop all medications Renal/ Medical History: Reports: Hx Kidney Stones. Denies: Hx Peritoneal Dialysis GI Medical History: Reports: Hx Gastroesophageal Reflux Disease, Hx Ulcer - 4x. Denies: Hx Pancreatitis Musculoskeletal Medical History: Reports Hx Arthritis Skin Medical History: Reports Hx MRSA Psychiatric Medical History: Reports: Hx Bipolar Disorder, Hx Depression Traumatic Medical History: Reports: Hx Fractures - RT ankle 2010 Infectious Medical History: Past Surgical History: Reports: Hx Abdominal Surgery - Repair of complications from gastric bypass, Hx Appendectomy - 1975, Hx Bowel Surgery - bowel perforation 09/26/2015, May 2016, Hx Gastric Bypass Surgery - 02/19/13, Hx Orthopedic Surgery - Right below-knee amputation, Hx Tonsillectomy - 1978 - Immunizations Immunizations up to date: Yes Hx Diphtheria, Pertussis, Tetanus Vaccination: Yes Hx Pneumococcal Vaccination: 03/03/11 Physical Exam - Vital signs Vitals: Temp Resp BP Pulse Ox 97.8 F 22 H 126/87 H 97 01/29/18 08:24 01/29/18 08:24 01/29/18 08:24 01/29/18 08:24 Course - Re-evaluation Re-evalutation: Patient seen and examined, vital signs reviewed, on initial exam patient was noted to be somnolent but overtime the patient was more awake, and complaining of neck pain, which he report he has had since he was in the hospital and is not new, a cool compress was applied to help with this pain. CT head negative, Xrays of the left knee were negative as well. Bloodwork reviewed and no significant changes from recent bloodwork while in the hospital, anemia is stable, Ua negative, CMP unremarkable, normal renal function. On repeat evaluation patient was improving, he did receive dilaudid 0.5mg for his pain, which helped. He has been using meclizine at home for vertigo without improvement of symptoms, will prescribe a short prescription for valium 5mg for vertigo and to have him follow-up with his primary care physician, patient was agreeable to this plan of care. Laboratory 01/29/18 01/29/18 01/29/18 08:30 08:30 08:30 WBC 12.2 H RBC 4.55 Hgb 9.4 L Hct 30.5 L MCV 67 L MCH 20.7 L MCHC 30.9 L RDW 22.0 H Plt Count 560 H Total Counted 100 Seg Neutrophils % Not Reportable Seg Neuts % (Manual) 78 Band Neutrophils % 1 L Lymphocytes % Not Reportable Lymphocytes % (Manual) 5 L Monocytes % Not Reportable Monocytes % (Manual) 8 Eosinophils % Not Reportable Eosinophils % (Manual) 3 Basophils % Not Reportable Basophils % (Manual) 0 Metamyelocytes % 2 H Myelocytes % 2 H Promyelocytes % 1 H Absolute Neutrophils Not Reportable Abs Neuts (Manual) 10.2 H Absolute Lymphocytes Not Reportable Abs Lymphs (Manual) 0.6 Absolute Monocytes Not Reportable Abs Monocytes (Manual) 1.0 Absolute Eosinophils Not Reportable Absolute Eos (Manual) 0.4 Absolute Basophils Not Reportable Abs Basophils (Manual) 0.0 Toxic Granulation 1+ Platelet Comment INCREASED Polychromasia 1+ Poikilocytosis 2+ Anisocytosis 2+ Microcytosis 2+ Ovalocytes 2+ Sodium 141.6 Potassium 4.8 Chloride 101 Carbon Dioxide 27 Anion Gap 14 BUN 13 Creatinine 0.79 Est GFR ( Amer) > 60 Est GFR (Non-Af Amer) > 60 Glucose 61 L Calcium 10.0 Total Bilirubin 0.3 Direct Bilirubin 0.2 Neonat Total Bilirubin Not Reportable Neonat Direct Bilirubin Not Reportable Neonat Indirect Bili Not Reportable AST 25 ALT 28 Alkaline Phosphatase 91 Troponin I < 0.012 Total Protein 7.4 Albumin 3.8 Urine Color Urine Appearance Urine pH Ur Specific [place] Urine Protein Urine Glucose (UA) Urine Ketones Urine Blood Urine Nitrite Urine Bilirubin Urine Urobilinogen Ur Leukocyte Esterase Urine WBC (Auto) Urine RBC (Auto) U Hyaline Cast (Auto) Squamous Epi Cells Auto Urine Mucus (Auto) Urine Ascorbic Acid 01/29/18 10:40 WBC RBC Hgb Hct MCV MCH MCHC RDW Plt Count Total Counted Seg Neutrophils % Seg Neuts % (Manual) Band Neutrophils % Lymphocytes % Lymphocytes % (Manual) Monocytes % Monocytes % (Manual) Eosinophils % Eosinophils % (Manual) Basophils % Basophils % (Manual) Metamyelocytes % Myelocytes % Promyelocytes % Absolute Neutrophils Abs Neuts (Manual) Absolute Lymphocytes Abs Lymphs (Manual) Absolute Monocytes Abs Monocytes (Manual) Absolute Eosinophils Absolute Eos (Manual) Absolute Basophils Abs Basophils (Manual) Toxic Granulation Platelet Comment Polychromasia Poikilocytosis Anisocytosis Microcytosis Ovalocytes Sodium Potassium Chloride Carbon Dioxide Anion Gap BUN Creatinine Est GFR ( Amer) Est GFR (Non-Af Amer) Glucose Calcium Total Bilirubin Direct Bilirubin Neonat Total Bilirubin Neonat Direct Bilirubin Neonat Indirect Bili AST ALT Alkaline Phosphatase Troponin I Total Protein Albumin Urine Color YELLOW Urine Appearance CLEAR Urine pH 5.0 Ur Specific [place] 1.019 Urine Protein NEGATIVE Urine Glucose (UA) NEGATIVE Urine Ketones NEGATIVE Urine Blood NEGATIVE Urine Nitrite NEGATIVE Urine Bilirubin NEGATIVE Urine Urobilinogen 2.0 H Ur Leukocyte Esterase NEGATIVE Urine WBC (Auto) 1 Urine RBC (Auto) 1 U Hyaline Cast (Auto) 16 Squamous Epi Cells Auto <1 Urine Mucus (Auto) RARE Urine Ascorbic Acid NEGATIVE Head CT 01/29/18 08:58 IMPRESSION: NORMAL BRAIN CT WITHOUT CONTRAST. EVIDENCE OF ACUTE STROKE: NO. Knee X-Ray 01/29/18 08:58 IMPRESSION: STABLE KNEE PROSTHESIS. NO RADIOGRAPHIC EVIDENCE OF ACUTE INJURY. - Vital Signs Vital signs: Temp Pulse Resp BP Pulse Ox 97.9 F 84 20 134/99 H 9 L 01/29/18 11:42 01/29/18 11:42 01/29/18 11:42 01/29/18 11:42 01/29/18 11:42 - Laboratory Result Diagrams: 01/29/18 08:30 01/29/18 08:30 Laboratory results interpreted by me: 01/29/18 01/29/18 01/29/18 08:30 08:30 10:40 WBC 12.2 H Hgb 9.4 L Hct 30.5 L MCV 67 L MCH 20.7 L MCHC 30.9 L RDW 22.0 H Plt Count 560 H Band Neutrophils % 1 L Lymphocytes % (Manual) 5 L Metamyelocytes % 2 H Myelocytes % 2 H Promyelocytes % 1 H Abs Neuts (Manual) 10.2 H Glucose 61 L Urine Urobilinogen 2.0 H - EKG Interpretation by Me Additional EKG results interpreted by me: EKG demonstrates sinus rhythm with a ventricular rate of 90 bpm, normal axis, normal intervals, no evidence of acute ischemia on this EKG, since compared to prior EKG from 01/10/2018, without significant change. Discharge - Discharge Clinical Impression: Vertigo Fall Qualifiers: Encounter type: initial encounter Qualified Code(s): W19.XXXA - Unspecified fall, initial encounter Knee contusion Qualifiers: Encounter type: initial encounter Laterality: left Qualified Code(s): S80.02XA - Contusion of left knee, initial encounter Fatigue Qualifiers: Fatigue type: unspecified Qualified Code(s): R53.83 - Other fatigue Condition: Stable Disposition: HOME, SELF-CARE Instructions: Vertigo ([facility]) Additional Instructions: Please follow-up with your primary care physician, take the medications as prescribed, please use walking assistance, such as a cane or walker, to avoid further falls or injury. Prescriptions: Diazepam [Valium 5 mg Tablet] 5 mg PO Q8H PRN #15 tablet PRN Reason: vertigo Referrals: MERYL ORNELAS MD [Primary Care Provider] - Follow up as needed
[2018-01-29] MEDS ORDERED: RINGERS SOLUTION,LACTATED 1,000 ML IV ONE (08:58)
--- NOTE | 2018-01-29 09:21 | RADIOLOGY REPORT (SQ) ---
EXAM DESCRIPTION: CT HEAD WITHOUT COMPLETED DATE/TIME: 01/29/2018 9:12 am REASON FOR STUDY: headache COMPARISON: 01/12/2018. TECHNIQUE: Axial images acquired through the brain without intravenous contrast. Images reviewed wi th bone, brain and subdural windows. Additional sagittal and coronal reconstructions were generated. Images stored on PACS. All CT scanners at this facility use dose modulation, iterative reconstruction, and/or weight based d osing when appropriate to reduce radiation dose to as low as reasonably achievable (ALARA). [facility]: Dose Right [facility]: CareDose [facility]: Dose Right [facility]: Teradose 4D [facility]: Vertro RADIATION DOSE: CT Rad equipment meets quality standard of care and radiation dose reduction techniq ues were employed. CTDIvol: 53.2 mGy. DLP: 1124 mGy-cm. mGy. LIMITATIONS: None. FINDINGS: VENTRICLES: Normal size and contour. CEREBRUM: No masses. No hemorrhage. No midline shift. No evidence for acute infarction. Normal gra y/white matter differentiation. No areas of low density in the white matter. CEREBELLUM: No masses. No hemorrhage. No alteration of density. No evidence for acute infarction. EXTRAAXIAL SPACES: No fluid collections. No masses. ORBITS AND GLOBE: No intra- or extraconal masses. Normal contour of globe without masses. CALVARIUM: No fracture. PARANASAL SINUSES: No fluid or mucosal thickening. SOFT TISSUES: No mass or hematoma. OTHER: No other significant finding. IMPRESSION: NORMAL BRAIN CT WITHOUT CONTRAST. EVIDENCE OF ACUTE STROKE: NO. COMMENT: Quality ID # [id number]: Final reports with documentation of one or more dose reduction techniques (e.g., Automated exposure control, adjustment of the mA and/or kV according to patient size, use of iterative reconstruction technique) TECHNICAL DOCUMENTATION: JOB ID: [id number] [employer]- All Rights Reserved Reading location - IP/workstation name: [email or web address]
--- NOTE | 2018-01-29 09:27 | RADIOLOGY REPORT (SQ) ---
EXAM DESCRIPTION: KNEE LEFT 3 VIEWS COMPLETED DATE/TIME: 01/29/2018 9:18 am REASON FOR STUDY: knee pain, injury COMPARISON: 03/26/2017. NUMBER OF VIEWS: Three views. TECHNIQUE: AP, lateral, and sunrise patella radiographic images acquired of the left knee. LIMITATIONS: None. FINDINGS: MINERALIZATION: Normal. BONES: No acute fracture or dislocation. Stable prosthesis. No worrisome bone lesions. JOINT: No effusion. SOFT TISSUES: No soft tissue swelling. No radio-opaque foreign body. OTHER: No other significant finding. IMPRESSION: STABLE KNEE PROSTHESIS. NO RADIOGRAPHIC EVIDENCE OF ACUTE INJURY. TECHNICAL DOCUMENTATION: JOB ID: [id number] [employer]- All Rights Reserved Reading location - IP/workstation name: [email or web address]
[2018-01-29 09:31] LABS: ALANINE AMINOTRANSFERASE 28 U/L (21-72); ALBUMIN 3.8 g/dL (3.5-5.0); ALKALINE PHOSPHATASE 91 U/L (38-126); ANION GAP 14 (5-19); ASPARTATE AMINO TRANSFERASE 25 U/L (17-59); BILIRUBIN,DIRECT 0.2 mg/dL (0.0-0.4); BILIRUBIN,TOTAL 0.3 mg/dL (0.2-1.3); BLOOD UREA NITROGEN 13 mg/dL (7-20); CARBON DIOXIDE 27 mmol/L (22-30); CHLORIDE 101 mmol/L (98-107); GLUCOSE 61 mg/dL (75-110); POTASSIUM 4.8 mmol/L (3.6-5.0); SODIUM 141.6 mmol/L (137-145); TOTAL PROTEIN 7.4 g/dL (6.3-8.2)
[2018-01-29 09:37] LABS: HEMATOCRIT 30.5 % (37.9-51.0); HEMOGLOBIN 9.4 g/dL (13.5-17.0); MEAN CORPUSCULAR HEMOGLOBIN 20.7 pg (27.0-33.4); MEAN CORPUSCULAR HGB CONC 30.9 g/dL (32.0-36.0); MEAN CORPUSCULAR VOLUME 67 fl (80-97); PLATELET COUNT 560 10^3/uL (150-450); RED BLOOD COUNT 4.55 10^6/uL (4.35-5.55); WHITE BLOOD COUNT 12.2 10^3/uL (4.0-10.5)
[2018-01-29 10:44] LABS: ABSOLUTE LYMPHOCYTES# (MANUAL) 0.6 10^3/uL (0.5-4.7); ABSOLUTE NEUTROPHILS# (MANUAL) 10.2 10^3/uL (1.7-8.2); BAND NEUTROPHILS % (MANUAL) 1 % (3-5); BASOPHILS % (MANUAL) 0 % (0-2); EOSINOPHILS % (MANUAL) 3 % (0-6); LYMPHOCYTES % (MANUAL) 5 % (13-45); METAMYELOCYTES % (MANUAL) 2 % (0); MONOCYTES % (MANUAL) 8 % (3-13); SEGMENTED NEUTROPHILS % (MAN) 78 % (42-78); TOTAL CELLS COUNTED 100
[2018-01-29 10:45] LABS: MYELOCYTES % (MANUAL) 2 % (0); PROMYELOCYTES % (MANUAL) 1 % (0)
[2018-01-29 10:46] LABS: ANISOCYTOSIS 2+; OVALOCYTES 2+; PLATELET COMMENT INCREASED; POIKILOCYTOSIS 2+; POLYCHROMASIA 1+; TOXIC GRANULATION 1+
[2018-01-29] MEDS ORDERED: HYDROMORPHONE HCL INJ/PF 2 MG/ML AMPULE IV ONE (10:55)
[2018-01-29 11:00] LABS: APPEARANCE,URINE CLEAR; BILIRUBIN,URINE NEGATIVE (NEGATIVE); COLOR,URINE YELLOW; GLUCOSE, URINE NEGATIVE (NEGATIVE); KETONES,URINE NEGATIVE (NEGATIVE); LEUKOCYTE ESTERASE,URINE NEGATIVE (NEGATIVE); NITRITE,URINE NEGATIVE (NEGATIVE); PROTEIN,URINE NEGATIVE (NEGATIVE); URINE SPECIFIC GRAVITY 1.019
[2018-01-29 11:44] VITALS: BP 134/99
--- NOTE | 2018-01-29 13:41 | EKG REPORT ---
SEVERITY:- NORMAL ECG - SINUS RHYTHM : Confirmed by: Cricket Pantoja MD 29-Jan-2018 13:39:22
[2018-01-30 12:19] LABS: PATH REVIEW PATHOLOGIST REVIEWED
== END 2018-01-29 11:49 | disposition home or self-care (01) ==
LOC: ER 08:18
DX: S80.02XA Contusion of left knee, initial encounter (principal); R53.83 Other fatigue; R42 Dizziness and giddiness; R41.82 Altered mental status, unspecified; M25.569 Pain in unspecified knee; W18.2XXA Fall in (into) shower or empty bathtub, initial encounter; Z91.81 History of falling; I10 Essential (primary) hypertension; E11.9 Type 2 diabetes mellitus without complications
CPT/HCPCS: 93005; 99285; 96361; 96374; 36415; 85025; 80053; 81001; 84484; 73562; 70450; 93010; J1170; J7120

== ENCOUNTER 2018-02-18 00:57 | Emergency (ER) | payer MEDICARE, MEDICAID ==
[2018-02-18] MEDS ORDERED: NORMAL SALINE 1000 ML 1,000 ML IV ONE ×2 (01:57)
--- NOTE | 2018-02-18 01:58 | ER Document Report ---
ED General - General Chief Complaint: Diarrhea Stated Complaint: DIARRHEA Time Seen by Provider: 02/18/18 01:56 Notes: 52-year-old male status post gastric bypass reversal. Discharged 48 hours ago. Now having diarrhea. No abdominal pain and low-grade fever. Has not had normal stools since the surgery. Not have an appetite. Has not been eating but has been drinking liquids. Does not know if he got antibiotics while he was in the hospital but was not discharged on antibiotics. Patient does have a history of C. difficile TRAVEL OUTSIDE OF THE [place] IN LAST 30 DAYS: No - HPI Severity: Moderate Pain Level: Denies Associated symptoms: Diarrhea - Related Data Allergies/Adverse Reactions: aripiprazole [From [employer]] Adverse Reaction (Severe, Verified 12/24/17 09:48) "uncontrollable muscle tremors" Past Medical History - General Information source: Patient, Relative - Social History Smoking Status: Unknown if Ever Smoked Frequency of alcohol use: None Drug Abuse: None Lives with: Family Family History: Reviewed & Not Pertinent, CAD, Hypertension, Other - ulcers fat her and sister Patient has suicidal ideation: No Patient has homicidal ideation: No - Past Medical History Cardiac Medical History: Reports: Hx Hypertension Denies: Hx Coronary Artery Disease, Hx Heart Attack, Hx Heart Murmur Pulmonary Medical History: Denies: Hx Asthma, Hx Bronchitis, Hx COPD, Hx Pneumonia Neurological Medical History: Denies: Hx Cerebrovascular Accident, Hx Seizures Endocrine Medical History: Reports: Hx Diabetes Mellitus Type 2 - Since gastric bypass has been able to stop all medications Renal/ Medical History: Reports: Hx Kidney Stones. Denies: Hx Peritoneal Dialysis GI Medical History: Reports: Hx Gastroesophageal Reflux Disease, Hx Ulcer - 4x. Denies: Hx Pancreatitis Musculoskeletal Medical History: Reports Hx Arthritis Skin Medical History: Reports Hx MRSA Psychiatric Medical History: Reports: Hx Bipolar Disorder, Hx Depression Traumatic Medical History: Reports: Hx Fractures - RT ankle 2010 Infectious Medical History: Past Surgical History: Reports: Hx Abdominal Surgery - Repair of complications from gastric bypass, Hx Appendectomy - 1975, Hx Bowel Surgery - bowel perforation 09/26/2015, May 2016, Hx Gastric Bypass Surgery - 02/19/13, Hx Orthopedic Surgery - Right below-knee amputation, Hx Tonsillectomy - 1978 - Immunizations Immunizations up to date: Yes Hx Diphtheria, Pertussis, Tetanus Vaccination: Yes Hx Pneumococcal Vaccination: 03/03/11 Review of Systems - Review of Systems Notes: Constitutional: denies: Chills, Diaphoresis,. Does have low-grade fever and weakness EENT: denies: Eye discharge, Blurred vision, Tearing, Double vision, Nose congestion, Nose discharge, Throat swelling, Mouth pain Cardiovascular: denies: Palpitations, Heart racing, Orthopnea, Dyspnea, Chest pain Respiratory: denies: Cough, Hurts to breathe, Wheezing, Shortness of breath Gastrointestinal: Planing of diarrhea. Status post surgery last week. No significant abdominal pain other than around the surgical incision sites. Genitourinary: denies: Burning, Dysuria, Discharge, Frequency, Flank pain, Hematuria Musculoskeletal: denies: Joint pain, Joint swelling, Muscle pain, Muscle stiffness, back pain Hematologic/Lymphatic: denies: Anemia, Easy bleeding, Easy bruising, Blood clots Neurological/Psychological: denies: Confusion, Dementia, Depression, Loss of consciousness Skin: No lesions, no masses, no skin breakdown, no abscesses Physical Exam - Vital signs Vitals: Temp Pulse Resp BP Pulse Ox 100.4 F 115 H 17 108/70 94 02/18/18 01:18 02/18/18 01:18 02/18/18 01:18 02/18/18 01:18 02/18/18 01:18 Interpretation: Tachycardic, Febrile - General General appearance: Appears well, Alert - HEENT Head: Normocephalic, Atraumatic Eyes: Normal Pupils: PERRL Mucous membranes: Dry - Respiratory Respiratory status: No respiratory distress Chest status: Nontender Breath sounds: Normal Chest palpation: Normal - Cardiovascular Rhythm: Tachycardia Heart sounds: Normal auscultation Murmur: No - Abdominal Inspection: Normal Distension: No distension Bowel sounds: Hyperactive Tenderness: Tender Organomegaly: No organomegaly Notes: Surgical incision sites look uninfected. There is no signs of surrounding erythema or redness. There is no active drainage from surgical incision sites. - Back Back: Normal, Nontender - Extremities General upper extremity: Normal inspection, Nontender, Normal color, Normal ROM, Normal temperature General lower extremity: Normal inspection, Nontender, Normal color, Normal ROM, Normal temperature, Normal weight bearing. No: Lilly's sign - Neurological Neuro grossly intact: Yes Cognition: Normal Orientation: AAOx4 Crumrod Coma Scale Eye Opening: Spontaneous Crumrod Coma Scale Verbal: Oriented Crumrod Coma Scale Motor: Obeys Commands Speech: Normal Motor strength normal: LUE, RUE, LLE, RLE Sensory: Normal - Psychological Associated symptoms: Normal affect, Normal mood - Skin Skin Temperature: Warm Skin Moisture: Dry Skin Color: Normal Course - Re-evaluation Re-evalutation: 02/18/18 06:35 Laboratory 02/18/18 02/18/18 02:20 02:20 WBC 9.2 RBC 4.19 L Hgb 8.4 L Hct 26.8 L MCV 64 L MCH 20.1 L MCHC 31.5 L RDW 20.9 H Plt Count 247 Seg Neutrophils % 73.1 Lymphocytes % 12.4 L Monocytes % 10.1 Eosinophils % 4.2 Basophils % 0.2 Absolute Neutrophils 6.7 Absolute Lymphocytes 1.1 Absolute Monocytes 0.9 Absolute Eosinophils 0.4 Absolute Basophils 0.0 Sodium 138.1 Potassium 4.2 Chloride 101 Carbon Dioxide 30 Anion Gap 7 BUN 12 Creatinine 0.81 Est GFR ( Amer) > 60 Est GFR (Non-Af Amer) > 60 Glucose 102 Calcium 9.3 Magnesium 1.7 Total Bilirubin 0.9 Direct Bilirubin 0.3 Neonat Total Bilirubin Not Reportable Neonat Direct Bilirubin Not Reportable Neonat Indirect Bili Not Reportable AST 70 H ALT 45 Alkaline Phosphatase 113 Total Protein 6.8 Albumin 3.6 Acute Abdomen Series 02/18/18 01:56 IMPRESSION: No acute findings. At this time patient has no acute findings. His vital signs are within normal limits. He is afebrile. There is no signs of infection. There is no signs of obstruction. Patient has pain medication at home that I have advised that he take as this may help with some of his diarrhea. His C. difficile is negative. I will advised him to follow-up with his surgeon today to discuss his issues. - Vital Signs Vital signs: Temp Pulse Resp BP Pulse Ox 100.4 F 115 H 17 108/70 94 02/18/18 01:18 02/18/18 01:18 02/18/18 01:18 02/18/18 01:18 02/18/18 01:18 - Laboratory Result Diagrams: 02/18/18 02:20 02/18/18 02:20 Laboratory results interpreted by me: 02/18/18 02/18/18 02:20 02:20 RBC 4.19 L Hgb 8.4 L Hct 26.8 L MCV 64 L MCH 20.1 L MCHC 31.5 L RDW 20.9 H Lymphocytes % 12.4 L AST 70 H Discharge - Discharge Clinical Impression: Diarrhea Qualifiers: Diarrhea type: unspecified type Qualified Code(s): R19.7 - Diarrhea, unspecified Condition: Good Disposition: HOME, SELF-CARE Instructions: Diarrhea, Nonspecific ([facility]) Additional Instructions: Please follow-up with your surgeon and discuss your issues with your surgeon. There may be other surgical or postoperative issues with your current symptoms so it will be very important that you speak to your surgeon. Continue to take your pain medication as this may help with some of the diarrhea. If you develop any worsening symptoms please return and we will reevaluate you. Referrals: MERYL ORNELAS MD [Primary Care Provider] - Follow up as needed
[2018-02-18 02:38] LABS: ABSOLUTE EOSINOPHILS # (AUTO) 0.4 10^3/uL (0.0-0.6); ABSOLUTE LYMPHOCYTES (AUTO) 1.1 10^3/uL (0.5-4.7); ABSOLUTE MONOCYTES (AUTO) 0.9 10^3/uL (0.1-1.4); ABSOLUTE NEUT (AUTO) 6.7 10^3/uL (1.7-8.2); BASOPHILS % (AUTO) 0.2 % (0-2); EOSINOPHILS % (AUTO) 4.2 % (0-6); HEMATOCRIT 26.8 % (37.9-51.0); HEMOGLOBIN 8.4 g/dL (13.5-17.0); LYMPHOCYTES % (AUTO) 12.4 % (13-45); MEAN CORPUSCULAR HEMOGLOBIN 20.1 pg (27.0-33.4); MEAN CORPUSCULAR HGB CONC 31.5 g/dL (32.0-36.0); MONOCYTES % (AUTO) 10.1 % (3-13); PLATELET COUNT 247 10^3/uL (150-450); RED BLOOD COUNT 4.19 10^6/uL (4.35-5.55); RED CELL DISTRIBUTION WIDTH 20.9 % (11.5-14.0); SEGMENTED NEUTROPHILS % (AUTO) 73.1 % (42-78); TOTAL CELLS COUNTED % (AUTO) 100 %; WHITE BLOOD COUNT 9.2 10^3/uL (4.0-10.5)
[2018-02-18 02:41] LABS: MEAN CORPUSCULAR VOLUME 64 fl (80-97)
[2018-02-18 02:58] LABS: ALANINE AMINOTRANSFERASE 45 U/L (21-72); ALBUMIN 3.6 g/dL (3.5-5.0); ALKALINE PHOSPHATASE 113 U/L (38-126); ANION GAP 7 (5-19); ASPARTATE AMINO TRANSFERASE 70 U/L (17-59); BILIRUBIN,DIRECT 0.3 mg/dL (0.0-0.4); BILIRUBIN,TOTAL 0.9 mg/dL (0.2-1.3); BLOOD UREA NITROGEN 12 mg/dL (7-20); CALCIUM 9.3 mg/dL (8.4-10.2); CARBON DIOXIDE 30 mmol/L (22-30); CHLORIDE 101 mmol/L (98-107); GLUCOSE 102 mg/dL (75-110); POTASSIUM 4.2 mmol/L (3.6-5.0); SODIUM 138.1 mmol/L (137-145); TOTAL PROTEIN 6.8 g/dL (6.3-8.2)
--- NOTE | 2018-02-18 03:19 | RADIOLOGY REPORT (SQ) ---
EXAM DESCRIPTION: XR ABDOMEN SUPINE AND ERECT WITH CHEST (ABD ACUTE SERIES) COMPLETED DATE/TME: 02/18/2018 01:56 CLINICAL HISTORY: 52 years Male, abd pain COMPARISON:01/20/2018 NUMBER OF VIEWS/TECHNIQUE: 3 LIMITATIONS: None. FINDINGS: Intestinal gas pattern is within normal limits. Colonic stool retention. No suspicious calcification. Grossly intact skeletal structures. No acute cardiopulmonary findings. IVC filter at the L1-L2 level. Left upper abdominal suture. IMPRESSION: No acute findings.
[2018-02-18 06:53] VITALS: BP 121/77
[2018-02-18 12:45] LABS: PATH REVIEW PATHOLOGIST REVIEWED
== END 2018-02-18 06:53 | disposition home or self-care (01) ==
LOC: ER 00:57
DX: R19.7 Diarrhea, unspecified (principal); R63.0 Anorexia; R10.819 Abdominal tenderness, unspecified site; R00.0 Tachycardia, unspecified; I10 Essential (primary) hypertension; Z98.84 Bariatric surgery status
CPT/HCPCS: 99284; 96360; 36415; 87045; 87205; 83735; 85025; 80053; 87493; 74022; J7030

== ENCOUNTER → 2018-07-21 | Outpatient (CLI) | payer MEDICARE, MEDICAID ==
[2018-07-21 08:56] LABS: ALANINE AMINOTRANSFERASE 19 U/L (21-72); ALKALINE PHOSPHATASE 77 U/L (38-126); ANION GAP 10 (5-19); ASPARTATE AMINO TRANSFERASE 29 U/L (17-59); BILIRUBIN,DIRECT 0.2 mg/dL (0.0-0.4); BILIRUBIN,TOTAL 0.3 mg/dL (0.2-1.3); BLOOD UREA NITROGEN 8 mg/dL (7-20); CALCIUM 9.6 mg/dL (8.4-10.2); CARBON DIOXIDE 28 mmol/L (22-30); CHLORIDE 103 mmol/L (98-107); CHOLESTEROL 124.01 mg/dL (0-200); GLUCOSE 91 mg/dL (75-110); POTASSIUM 5.1 mmol/L (3.6-5.0); SODIUM 140.8 mmol/L (137-145); TOTAL PROTEIN 7.1 g/dL (6.3-8.2); TRIGLYCERIDES 137 mg/dL (<150)
[2018-07-21 08:59] LABS: HEMATOCRIT 30.5 % (37.9-51.0); HEMOGLOBIN 9.3 g/dL (13.5-17.0); MEAN CORPUSCULAR HEMOGLOBIN 19.2 pg (27.0-33.4); MEAN CORPUSCULAR HGB CONC 30.6 g/dL (32.0-36.0); MEAN CORPUSCULAR VOLUME 63 fl (80-97); PLATELET COUNT 206 10^3/uL (150-450); RED BLOOD COUNT 4.86 10^6/uL (4.35-5.55); RED CELL DISTRIBUTION WIDTH 22.8 % (11.5-14.0); WHITE BLOOD COUNT 5.4 10^3/uL (4.0-10.5)
[2018-07-21 09:07] LABS: DIRECT LDL 77 mg/dL (<100)
[2018-07-21 09:23] LABS: ABSOLUTE LYMPHOCYTES# (MANUAL) 1.5 10^3/uL (0.5-4.7); ABSOLUTE MONOCYTES # (MANUAL) 0.5 10^3/uL (0.1-1.4); ABSOLUTE NEUTROPHILS# (MANUAL) 3.2 10^3/uL (1.7-8.2); BAND NEUTROPHILS % (MANUAL) 2 % (3-5); BASOPHILS % (MANUAL) 0 % (0-2); EOSINOPHILS % (MANUAL) 4 % (0-6); LYMPHOCYTES % (MANUAL) 27 % (13-45); MONOCYTES % (MANUAL) 9 % (3-13); SEGMENTED NEUTROPHILS % (MAN) 57 % (42-78); TOTAL CELLS COUNTED 100
[2018-07-21 09:27] LABS: ANISOCYTOSIS 3+; OVALOCYTES 1+; POIKILOCYTOSIS 1+; POLYCHROMASIA SLIGHT; TEAR DROP CELLS SLIGHT; TOXIC GRANULATION SLIGHT; TOXIC VACUOLATION PRESENT
[2018-07-21 09:28] LABS: BURR CELLS SLIGHT; PLATELET COMMENT ADEQUATE
[2018-07-23 07:06] LABS: MICROALBUMIN URINE <3.0 ug/mL (Not Estab.)
== END ==
LOC: OD 07:28
PROVIDERS: ATTEND Family Medicine Geriatric Medicine
DX: B35.9 Dermatophytosis, unspecified (principal); E11.9 Type 2 diabetes mellitus without complications; K21.0 Gastro-esophageal reflux disease with esophagitis; Z79.899 Other long term (current) drug therapy
CPT/HCPCS: 36415; 80053; 80061; 82043; 82570; 83036; 84443; 85025

== ENCOUNTER → 2018-07-22 | Outpatient (CLI) | payer MEDICARE, MEDICAID ==
--- NOTE | 2018-07-22 15:41 | RADIOLOGY REPORT (SQ) ---
EXAM DESCRIPTION: CAROTID DOPPLER COMPLETED DATE/TIME: 07/22/2018 3:33 pm REASON FOR STUDY: DIZZINESS AND GIDDINESS R42 DIZZINESS AND GIDDINESS COMPARISON: None. TECHNIQUE: Grayscale ultrasound, Doppler velocity and spectra, and color Doppler images acquired of the extra-cranial carotid and vertebral arteries. Images stored on PACS. LIMITATIONS: None. FINDINGS: RIGHT CAROTID CCA Velocities: Within normal limits. ICA Velocities Peak systolic 0.64 m/s. End diastolic 0.36 m/s. Proximal ICA/CCA peak systolic ratio 1.0. Spectra normal. No significant plaque. LEFT CAROTID CCA Velocities: Within normal limits. ICA Velocities Peak systolic 0.71 m/s. End diastolic 0.29 m/s. Proximal ICA/CCA peak systolic ratio 0.97. Spectra normal. No significant plaque. VERTEBRAL ARTERIES: Antegrade flow. Normal waveforms. SUBCLAVIAN ARTERIES: No finding. OTHER: No other significant finding. IMPRESSION: NO HEMODYNAMICALLY SIGNIFICANT STENOSIS. COMMENT: Quality ID #[id number]: Velocity criteria are extrapolated from the diameter data as defined by t he Society of Radiologists in Ultrasound Consensus Conference. Radiology 2003: 229; 340-346. TECHNICAL DOCUMENTATION: JOB ID: [id number] [employer]- All Rights Reserved Reading location - IP/workstation name: [email or web address]
== END ==
LOC: SP 15:00
PROVIDERS: ATTEND Family Medicine Geriatric Medicine
DX: R42 Dizziness and giddiness (principal)
CPT/HCPCS: 93880

== ENCOUNTER → 2018-08-31 | Outpatient (CLI) | payer MEDICARE, MEDICAID ==
--- NOTE | 2018-08-31 10:50 | RADIOLOGY REPORT (SQ) ---
EXAM DESCRIPTION: CT HEAD WITHOUT COMPLETED DATE/TIME: 08/31/2018 10:40 am REASON FOR STUDY: HEADACHE (R51) R51 HEADACHE COMPARISON: None. TECHNIQUE: Axial images acquired through the brain without intravenous contrast. Images reviewed wi th bone, brain and subdural windows. Additional sagittal and coronal reconstructions were generated. Images stored on PACS. All CT scanners at this facility use dose modulation, iterative reconstruction, and/or weight based d osing when appropriate to reduce radiation dose to as low as reasonably achievable (ALARA). [facility]: Dose Right [facility]: CareDose [facility]: Dose Right [facility]: Teradose 4D [facility]: Cryptonator RADIATION DOSE: CT Rad equipment meets quality standard of care and radiation dose reduction techniq ues were employed. CTDIvol: 48.6 mGy. DLP: 929 mGy-cm. mGy. LIMITATIONS: None. FINDINGS: VENTRICLES: Normal size and contour. CEREBRUM: No masses. No hemorrhage. No midline shift. No evidence for acute infarction. Normal gra y/white matter differentiation. No areas of low density in the white matter. CEREBELLUM: No masses. No hemorrhage. No alteration of density. No evidence for acute infarction. EXTRAAXIAL SPACES: No fluid collections. No masses. ORBITS AND GLOBE: No intra- or extraconal masses. Normal contour of globe without masses. CALVARIUM: No fracture. PARANASAL SINUSES: No fluid or mucosal thickening. SOFT TISSUES: No mass or hematoma. OTHER: No other significant finding. IMPRESSION: NORMAL BRAIN CT WITHOUT CONTRAST. EVIDENCE OF ACUTE STROKE: NO. COMMENT: Quality ID # [id number]: Final reports with documentation of one or more dose reduction techniques (e.g., Automated exposure control, adjustment of the mA and/or kV according to patient size, use of iterative reconstruction technique) TECHNICAL DOCUMENTATION: JOB ID: [id number] [employer]- All Rights Reserved Reading location - IP/workstation name: [email or web address]
== END ==
LOC: RAD 10:27
PROVIDERS: ATTEND Family Medicine Geriatric Medicine
DX: R51 Headache (principal)
CPT/HCPCS: 70450

== ENCOUNTER 2018-09-01 09:44 | Emergency (ER) | payer MEDICARE, MEDICAID ==
--- NOTE | 2018-09-01 10:03 | ER Document Report ---
ED Medical Screen (RME) - General Chief Complaint: Dizziness Stated Complaint: DIZZINESS Time Seen by Provider: 09/01/18 09:54 Primary Care Provider: KASSANDRA PRESTON MD [Primary Care Provider] - Follow up as needed Mode of Arrival: Ambulatory Information source: Patient TRAVEL OUTSIDE OF THE [place] IN LAST 30 DAYS: No COUNTRY TRAVELED TO/FROM: [facility] - HPI Notes: 09/01/18 09:55 53 yr old male presents with complaints of headache, weakness, dizziness that started 3 days ago, has become progressively worse. pt reports he was seen by his pcp yesterday, a CT of the head was completed, which he states was normal. ekg was performed, pt states he was referred to cardiology due to abnormal results. was prescribed tramadol and Tylenol yesterday without full relief. reports he has had several episodes dizziness that caused him to fall. last bm was yesterday. PCP- Dr Preston ROS: Other than noted above, the 12 point review of systems was reviewed with the patient and were negative, all pertinent findings are included in the HPI. PHYSICAL EXAMINATION: Vital signs reviewed. GENERAL: Well-appearing, well-nourished and in no acute distress. HEAD: Atraumatic, normocephalic. EYES: Pupils equal round extraocular movements intact, conjunctiva are normal. NECK: Normal range of motion CV: Heart regular rate and rhythm LUNGS: No respiratory distress Musculoskeletal: Normal range of motion in BUE. in [place] currently. NEUROLOGICAL: Normal speech PSYCH: Normal mood, normal affect. MDM: Patient seen and examined for rapid initial assessment. Vital signs reviewed. A comprehensive ED assessment and evaluation of the patient, analysis of test results and completion of the medical decision making process will be conducted by additional ED providers. *Note is created using voice recognition software and may contain spelling, syntax or grammatical errors. - Related Data Allergies/Adverse Reactions: aripiprazole [From [employer]] Adverse Reaction (Severe, Verified 09/01/18 09:47) "uncontrollable muscle tremors" Past Medical History - Past Medical History Cardiac Medical History: Reports: Hx Hypertension Denies: Hx Coronary Artery Disease, Hx Heart Attack, Hx Heart Murmur Pulmonary Medical History: Denies: Hx Asthma, Hx Bronchitis, Hx COPD, Hx Pneumonia Neurological Medical History: Denies: Hx Cerebrovascular Accident, Hx Seizures Endocrine Medical History: Reports: Hx Diabetes Mellitus Type 2 - Since gastric bypass has been able to stop all medications Renal/ Medical History: Reports: Hx Kidney Stones. Denies: Hx Peritoneal Dialysis GI Medical History: Reports: Hx Gastroesophageal Reflux Disease, Hx Ulcer - 4x. Denies: Hx Pancreatitis Musculoskeltal Medical History: Reports Hx Arthritis, Denies Hx Systemic Lupus Erythematosus Skin Medical History: Reports Hx MRSA Psychiatric Medical History: Reports: Hx Bipolar Disorder, Hx Depression Traumatic Medical History: Reports: Hx Fractures - RT ankle 2010 Infectious Medical History: Past Surgical History: Reports: Hx Abdominal Surgery - Repair of complications from gastric bypass, Hx Appendectomy - 1975, Hx Bowel Surgery - bowel perforation 09/26/2015, May 2016, Hx Gastric Bypass Surgery - 02/19/13, Hx Orthopedic Surgery - Right below-knee amputation, Hx Tonsillectomy - 1978 - Immunizations Immunizations up to date: Yes Hx Diphtheria, Pertussis, Tetanus Vaccination: Yes History of Influenza Vaccine for 12/2016 - 05/2017 Season: Yes Influenza Administration Date for 12/2016 - 05/2017 Season: 01/01/17 Doctor's Discharge - Discharge Referrals: KASSANDRA PRESTON MD [Primary Care Provider] - Follow up as needed
--- NOTE | 2018-09-01 10:32 | RADIOLOGY REPORT (SQ) ---
EXAM DESCRIPTION: CHEST SINGLE VIEW COMPLETED DATE/TIME: 09/01/2018 10:22 am REASON FOR STUDY: dizziness, weakness COMPARISON: Two-view chest 01/25/2018, 01/19/2018 EXAM PARAMETERS: NUMBER OF VIEWS: One view. TECHNIQUE: Single frontal radiographic view of the chest acquired. RADIATION DOSE: NA LIMITATIONS: None. FINDINGS: LUNGS AND PLEURA: No opacities, masses or pneumothorax. No pleural effusion. MEDIASTINUM AND HILAR STRUCTURES: No masses. Contour normal. HEART AND VASCULAR STRUCTURES: Borderline cardiomegaly, stable BONES: No acute findings. HARDWARE: None in the chest. OTHER: No other significant finding. IMPRESSION: NO ACUTE RADIOGRAPHIC FINDING IN THE CHEST. TECHNICAL DOCUMENTATION: JOB ID: [id number] [employer] All Rights Reserved Reading location - IP/workstation name: [email or web address]
[2018-09-01 10:45] LABS: ABSOLUTE EOSINOPHILS # (AUTO) 0.2 10^3/uL (0.0-0.6); ABSOLUTE LYMPHOCYTES (AUTO) 1.3 10^3/uL (0.5-4.7); ABSOLUTE MONOCYTES (AUTO) 0.4 10^3/uL (0.1-1.4); ABSOLUTE NEUT (AUTO) 3.4 10^3/uL (1.7-8.2); BASOPHILS % (AUTO) 0.5 % (0-2); EOSINOPHILS % (AUTO) 4.4 % (0-6); HEMATOCRIT 31.3 % (37.9-51.0); HEMOGLOBIN 9.7 g/dL (13.5-17.0); LYMPHOCYTES % (AUTO) 24.3 % (13-45); MEAN CORPUSCULAR HEMOGLOBIN 20.5 pg (27.0-33.4); MEAN CORPUSCULAR HGB CONC 31.1 g/dL (32.0-36.0); MEAN CORPUSCULAR VOLUME 66 fl (80-97); PLATELET COUNT 230 10^3/uL (150-450); RED BLOOD COUNT 4.76 10^6/uL (4.35-5.55); RED CELL DISTRIBUTION WIDTH 19.7 % (11.5-14.0); SEGMENTED NEUTROPHILS % (AUTO) 62.8 % (42-78); TOTAL CELLS COUNTED % (AUTO) 100 %; WHITE BLOOD COUNT 5.4 10^3/uL (4.0-10.5)
[2018-09-01 11:05] LABS: ALANINE AMINOTRANSFERASE 18 U/L (21-72); ALBUMIN 4.3 g/dL (3.5-5.0); ALKALINE PHOSPHATASE 56 U/L (38-126); ANION GAP 8 (5-19); ASPARTATE AMINO TRANSFERASE 21 U/L (17-59); BILIRUBIN,DIRECT 0.2 mg/dL (0.0-0.4); BILIRUBIN,TOTAL 0.3 mg/dL (0.2-1.3); BLOOD UREA NITROGEN 12 mg/dL (7-20); CALCIUM 9.4 mg/dL (8.4-10.2); CARBON DIOXIDE 26 mmol/L (22-30); CHLORIDE 105 mmol/L (98-107); CREATINE KINASE 53 U/L (55-170); GLUCOSE 94 mg/dL (75-110); POTASSIUM 4.5 mmol/L (3.6-5.0); TOTAL PROTEIN 7.2 g/dL (6.3-8.2)
[2018-09-01 11:18] LABS: CREATINE KINASE MB 0.36 ng/mL (<4.55)
[2018-09-01 11:19] LABS: TROPONIN I < 0.012 ng/mL
[2018-09-01] MEDS ORDERED: MORPHINE SULFATE 10 MG/ML INJ IV ONE (11:43)
--- NOTE | 2018-09-01 11:56 | ER Document Report ---
ED Dizziness/Weakness - General Chief Complaint: Dizziness Stated Complaint: DIZZINESS Time Seen by Provider: 09/01/18 09:54 Primary Care Provider: KELLEN NEWELL MD [NO LOCAL MD] - Follow up as needed Mode of Arrival: Ambulatory Notes: Patient is a 53-year-old male presented to the emergency department chief complaint of dizziness and headache. Patient reports he has a history of vertigo, takes meclizine and this is not helped his symptoms. Patient reports he saw his primary care provider yesterday for same symptoms and a head CT was obtained. Patient reports his primary care provider called him today and told him that the head CT was negative. Patient decided to come to the emergency department for a more comprehensive evaluation today. Patient reports that symptoms have been going on for at least 2 to 3 months. Patient denies any new complaints today. TRAVEL OUTSIDE OF THE [place] IN LAST 30 DAYS: No COUNTRY TRAVELED TO/FROM: [place] - Related Data Allergies/Adverse Reactions: aripiprazole [From [employer]] Adverse Reaction (Severe, Verified 09/01/18 09:47) "uncontrollable muscle tremors" Past Medical History - General Information source: Patient - Social History Smoking Status: Unknown if Ever Smoked Chew tobacco use (# tins/day): No Frequency of alcohol use: None Drug Abuse: None Family History: Reviewed & Not Pertinent, CAD, Hypertension, Other - ulcers father and sister Patient has suicidal ideation: No Patient has homicidal ideation: No - Past Medical History Cardiac Medical History: Reports: Hx Hypertension Denies: Hx Coronary Artery Disease, Hx Heart Attack, Hx Heart Murmur Pulmonary Medical History: Denies: Hx Asthma, Hx Bronchitis, Hx COPD, Hx Pneumonia Neurological Medical History: Denies: Hx Cerebrovascular Accident, Hx Seizures Endocrine Medical History: Reports: Hx Diabetes Mellitus Type 2 - Since gastric bypass has been able to stop all medications Renal/ Medical History: Reports: Hx Kidney Stones. Denies: Hx Peritoneal Dialysis GI Medical History: Reports: Hx Gastroesophageal Reflux Disease, Hx Ulcer - 4x. Denies: Hx Pancreatitis Musculoskeletal Medical History: Reports Hx Arthritis, Denies Hx Systemic Lupus Erythematosus Skin Medical History: Reports Hx MRSA Psychiatric Medical History: Reports: Hx Bipolar Disorder, Hx Depression Traumatic Medical History: Reports: Hx Fractures - RT ankle 2010 Infectious Medical History: Past Surgical History: Reports: Hx Abdominal Surgery - Repair of complications from gastric bypass, Hx Appendectomy - 1975, Hx Bowel Surgery - bowel perforation 09/26/2015, May 2016, Hx Gastric Bypass Surgery - 02/19/13, Hx Orthopedic Surgery - Right below-knee amputation, Hx Tonsillectomy - 1978 - Immunizations Immunizations up to date: Yes Hx Diphtheria, Pertussis, Tetanus Vaccination: Yes Hx Pneumococcal Vaccination: 03/03/11 Review of Systems - Review of Systems Constitutional: Other - Dizziness, headache EENT: Vertigo Cardiovascular: No symptoms reported Respiratory: No symptoms reported Gastrointestinal: No symptoms reported Genitourinary: No symptoms reported Male Genitourinary: No symptoms reported Musculoskeletal: No symptoms reported Skin: No symptoms reported Hematologic/Lymphatic: No symptoms reported Neurological/Psychological: No symptoms reported Physical Exam - Vital signs Vitals: Temp Pulse Resp BP Pulse Ox 98.2 F 69 18 123/78 97 09/01/18 09:53 09/01/18 09:53 09/01/18 09:53 09/01/18 09:53 09/01/18 09:53 - Notes Notes: PHYSICAL EXAMINATION: GENERAL: Well-appearing, well-nourished and in no acute distress. HEAD: Atraumatic, normocephalic. EYES: Pupils equal round and reactive to light, extraocular movements intact, sclera anicteric, conjunctiva are normal. ENT: Nares patent, oropharynx clear without exudates. Moist mucous membranes. NECK: Normal range of motion, supple without lymphadenopathy LUNGS: Breath sounds clear to auscultation bilaterally and equal. No wheezes rales or rhonchi. HEART: Regular rate and rhythm without murmurs ABDOMEN: Soft, nontender, nondistended abdomen. No guarding, no rebound. No masses appreciated. Musculoskeletal: Normal range of motion, no pitting or edema. No cyanosis. NEUROLOGICAL: Cranial nerves grossly intact. Normal speech, normal gait. Normal sensory, motor exams, no focal neurological deficits noted. PSYCH: Normal mood, normal affect. SKIN: Warm, Dry, normal turgor, no rashes or lesions noted. Course - Re-evaluation Re-evalutation: Patient appears well, nontoxic and vital signs are within normal limits. Patient does present with multiple vague complaints today, states he is Pietro seen his primary care provider and had a negative head CT done yesterday this was reviewed in our system and it was a negative scan. CBC, CMP and cardiac enzymes are unremarkable today. EKG shows a sinus rhythm, rate of 59, QTc 416, no ST segment elevations or depressions to suggest ischemia. MRI was obtained of the brain which shows white matter lesions consistent with demyelinating disease. This was discussed with my attending physician, Dr. Garcia who re commends patient follow-up outpatient with neurology. This was discussed with the patient. She was given multiple doses of IV analgesics for his "brain pain". Patient reports pain has resolved, he is in agreement with plan of care, he has a primary care provider to follow-up with and a copy of his MRI of the brain was given to him today. - Vital Signs Vital signs: Temp Pulse Resp BP Pulse Ox 98.1 F 69 15 116/73 98 09/01/18 15:19 09/01/18 09:53 09/01/18 15:01 09/01/18 15:01 09/01/18 13:01 - Laboratory Result Diagrams: 09/01/18 10:28 09/01/18 10:28 Laboratory results interpreted by me: 09/01/18 09/01/18 10:28 10:28 Hgb 9.7 L Hct 31.3 L MCV 66 L MCH 20.5 L MCHC 31.1 L RDW 19.7 H ALT 18 L Creatine Kinase 53 L Discharge - Discharge Clinical Impression: Demyelinating disease Condition: Stable Disposition: HOME, SELF-CARE Additional Instructions: Please take medication as prescribed. Please call your primary care provider as well as the neurologist to schedule follow-up appointments. Your pain and dizziness may not be completely resolved by the medications I am giving you however they should help. I have also enclosed a copy of your MRI report for you to bring to the neurologist with you. Return to the emergency department for any life-threatening concerns to include difficulty breathing, shortness of breath or chest pain. Prescriptions: Gabapentin [Neurontin 300 mg Capsule] 300 mg PO Q12 #30 capsule Promethazine HCl [Phenergan 25 mg Tablet] 1 tab PO Q6H PRN #15 tablet PRN Reason: Forms: Return to Work Referrals: KELLEN NEWELL MD [NO LOCAL MD] - Follow up as needed
[2018-09-01] MEDS ORDERED: LORAZEPAM INJ 2 MG/1 ML VIAL IV ONE (12:34)
[2018-09-01] MEDS ORDERED: ONDANSETRON HCL INJ/PF 4 MG/2 ML SDV IV ONE (12:45)
[2018-09-01] MEDS ORDERED: HYDROMORPHONE HCL INJ/PF 2 MG/ML AMPULE IV ONE ×2 (12:49→14:11)
[2018-09-01] MEDS ORDERED: METOCLOPRAMIDE HCL INJ/PF 10 MG/2 ML SDV IV ONE (14:10)
[2018-09-01] MEDS ORDERED: DIPHENHYDRAMINE HCL 50 MG/ML VIAL IV ONE (14:12)
--- NOTE | 2018-09-01 14:21 | RADIOLOGY REPORT (SQ) ---
EXAM DESCRIPTION: MRI HEAD WITHOUT COMPLETED DATE/TIME: 09/01/2018 1:46 pm REASON FOR STUDY: headache, dizziness, falls COMPARISON: MRI brain 09/23/2017, 12/31/2006 CT brain 08/31/2018 TECHNIQUE: Multiplanar imaging includes non-contrasted T1, T2, FLAIR, and diffusion with ADC map seq uences. Images stored on PACS. LIMITATIONS: Motion artifact on the T1 weighted images FINDINGS: ANATOMY: No anomalies. Normal vascular flow voids. Pituitary fossa normal. CSF SPACES: Normal in size and contour. No hemorrhage. CEREBRUM: There are multiple foci of increased FLAIR/ T2 signal in the deep periventricular white mat ter bifrontal, biparietal, and bitemporal regions. Findings are worrisome for demyelinating disease. Diffusion-weighted images are negative for acute ischemic change or acute demyelinating plaque. No acute intracranial hemorrhage, mass effect, or midline shift. POSTERIOR FOSSA: No signal alteration. No hemorrhage. No edema, masses or mass effect. Internal jessi tory canals, cerebello-pontine angles, mastoids normal. DIFFUSION IMAGING: Negative for acute or sub-acute infarction. ORBITS: No masses. Globes normal. PARANASAL SINUSES: There is inflammatory change in the left frontal and bilateral ethmoid air cells with mucous membrane thickening and fluid OTHER: No other significant finding. IMPRESSION: Multiple white matter lesions worrisome for demyelinating disease. Left frontal and bilateral anterior ethmoid sinusitis. EVIDENCE OF ACUTE STROKE: NO. TECHNICAL DOCUMENTATION: JOB ID: [id number] [employer]- All Rights Reserved Reading location - IP/workstation name: [email or web address]
--- NOTE | 2018-09-01 14:58 | EKG REPORT ---
SEVERITY:- NORMAL ECG - SINUS RHYTHM : Confirmed by: Ashley Castellanos 01-Sep-2018 14:57:53
[2018-09-01] MEDS ORDERED: GABAPENTIN 300 MG CAPSULE PO ONE (15:09)
[2018-09-01 15:19] VITALS: BP 116/73
== END 2018-09-01 15:21 | disposition home or self-care (01) ==
LOC: ER 09:44
DX: G37.9 Demyelinating disease of central nervous system, unspecified (principal); R51 Headache; R42 Dizziness and giddiness; E11.9 Type 2 diabetes mellitus without complications; I10 Essential (primary) hypertension; Z79.899 Other long term (current) drug therapy; Z98.84 Bariatric surgery status
CPT/HCPCS: 93005; 96376; 99284; 96374; 96375; 36415; 82553; 82962; 82550; 85025; 80053; 84484; 70551; 71045; 93010; J1200; A9270; J2765; J2270; J1170; J2060; J2405

== ENCOUNTER 2018-09-03 03:31 | Emergency (ER) | payer MEDICAID, MEDICARE ==
[2018-09-03] MEDS ORDERED: ACETAMINOPHEN 325 MG TABLET PO ONE ×2 (04:02→09:50)
[2018-09-03] MEDS ORDERED: ONDANSETRON HCL INJ/PF 4 MG/2 ML SDV IV ONE (04:02)
[2018-09-03 05:25] LABS: ABSOLUTE EOSINOPHILS # (AUTO) 0.2 10^3/uL (0.0-0.6); ABSOLUTE LYMPHOCYTES (AUTO) 1.3 10^3/uL (0.5-4.7); ABSOLUTE MONOCYTES (AUTO) 0.7 10^3/uL (0.1-1.4); ABSOLUTE NEUT (AUTO) 4.9 10^3/uL (1.7-8.2); BASOPHILS % (AUTO) 0.2 % (0-2); EOSINOPHILS % (AUTO) 3.2 % (0-6); HEMATOCRIT 30.7 % (37.9-51.0); HEMOGLOBIN 9.6 g/dL (13.5-17.0); LYMPHOCYTES % (AUTO) 18.5 % (13-45); MEAN CORPUSCULAR HEMOGLOBIN 20.8 pg (27.0-33.4); MEAN CORPUSCULAR HGB CONC 31.3 g/dL (32.0-36.0); MEAN CORPUSCULAR VOLUME 66 fl (80-97); MONOCYTES % (AUTO) 9.7 % (3-13); PLATELET COUNT 216 10^3/uL (150-450); RED BLOOD COUNT 4.63 10^6/uL (4.35-5.55); RED CELL DISTRIBUTION WIDTH 19.1 % (11.5-14.0); SEGMENTED NEUTROPHILS % (AUTO) 68.4 % (42-78); TOTAL CELLS COUNTED % (AUTO) 100 %; WHITE BLOOD COUNT 7.2 10^3/uL (4.0-10.5)
[2018-09-03 05:32] LABS: INTERNATIONAL RATION (INR) 1.03; PARTIAL THROMBOPLASTIN TIME 32.6 SEC (23.5-35.8); PROTHROMBIN TIME 13.5 SEC (11.4-15.4)
[2018-09-03 05:42] LABS: ALANINE AMINOTRANSFERASE 25 U/L (21-72); ALBUMIN 4.1 g/dL (3.5-5.0); ALKALINE PHOSPHATASE 56 U/L (38-126); ANION GAP 8 (5-19); ASPARTATE AMINO TRANSFERASE 19 U/L (17-59); BILIRUBIN,DIRECT 0.2 mg/dL (0.0-0.4); BILIRUBIN,TOTAL 0.3 mg/dL (0.2-1.3); BLOOD UREA NITROGEN 9 mg/dL (7-20); CALCIUM 9.7 mg/dL (8.4-10.2); CARBON DIOXIDE 32 mmol/L (22-30); CHLORIDE 100 mmol/L (98-107); GLUCOSE 89 mg/dL (75-110); SODIUM 140.2 mmol/L (137-145); TOTAL PROTEIN 6.8 g/dL (6.3-8.2)
--- NOTE | 2018-09-03 07:01 | ER Document Report ---
ED General - General Chief Complaint: Fall Injury Stated Complaint: FALL, HEAD PAIN Time Seen by Provider: 09/03/18 03:50 Primary Care Provider: KASSANDRA CARABALLO MD [Primary Care Provider] - Follow up as needed Notes: Patient is a pleasant 53-year-old male who presents with complaint of amatory dysfunction and falling. Patient was seen here 2 days ago and had an MRI of his brain which showed multiple demyelinating lesions. They are given a referral to Dr. Law. They called Dr. Solis office and have an appointment on the . They have not yet seen him. This was the soonest that they can get in. He is been admitted a few times over the course of the previous year for vertigo. Patient family said that he is typically treated for vertigo and eventually released stomach however, he continues to have more frequent worsening episodes of dizziness and difficulty in bleeding and over the last couple weeks it is become to the point where he is always having difficulty in bleeding. He said that it is to the point now where he cannot ambulate in his own and if he tries he will fall. Patient did fall tonight did bump his head. He did not vomit. He is been acting appropriately since. Patient said overall he just feels weak. He was prescribed Neurontin 2 days ago and the patient has been taking them and apparently has been taking them along more than prescribed based on the number of pills are left in the bottle. Patient family said that he was already having severe difficulty ambulating before even taking the Neurontin. He denies any focal weakness or numbness that is worse in one extremity versus the other. No blurred vision. He does have a mild headache. TRAVEL OUTSIDE OF THE [place] IN LAST 30 DAYS: No COUNTRY TRAVELED TO/FROM: [place] - Related Data Allergies/Adverse Reactions: aripiprazole [From [employer]] Adverse Reaction (Severe, Verified 09/01/18 09:47) "uncontrollable muscle tremors" Past Medical History - Social History Smoking Status: Current Some Day Smoker Chew tobacco use (# tins/day): No Frequency of alcohol use: None Drug Abuse: None Family History: Reviewed & Not Pertinent, CAD, Hypertension, Other - ulcers father and sister Patient has suicidal ideation: No Patient has homicidal ideation: No - Past Medical History Cardiac Medical History: Reports: Hx Hypertension Denies: Hx Coronary Artery Disease, Hx Heart Attack, Hx Heart Murmur Pulmonary Medical History: Denies: Hx Asthma, Hx Bronchitis, Hx COPD, Hx Pneumonia Neurological Medical History: Denies: Hx Cerebrovascular Accident, Hx Seizures Endocrine Medical History: Reports: Hx Diabetes Mellitus Type 2 - Since gastric bypass has been able to stop all medications Renal/ Medical History: Reports: Hx Kidney Stones. Denies: Hx Peritoneal Dialysis GI Medical History: Reports: Hx Gastroesophageal Reflux Disease, Hx Ulcer - 4x. Denies: Hx Pancreatitis Musculoskeletal Medical History: Reports Hx Arthritis, Denies Hx Systemic Lupus Erythematosus Skin Medical History: Reports Hx MRSA Psychiatric Medical History: Reports: Hx Bipolar Disorder, Hx Depression Traumatic Medical History: Reports: Hx Fractures - RT ankle 2010 Infectious Medical History: Past Surgical History: Reports: Hx Abdominal Surgery - Repair of complications from gastric bypass, Hx Appendectomy - 1975, Hx Bowel Surgery - bowel perforation 09/26/2015, May 2016, Hx Gastric Bypass Surgery - 02/19/13, Hx Orthopedic Surgery - Right below-knee amputation, Hx Tonsillectomy - 1978 - Immunizations Immunizations up to date: Yes Hx Diphtheria, Pertussis, Tetanus Vaccination: Yes Hx Pneumococcal Vaccination: 03/03/11 Review of Systems - Review of Systems Notes: My Normal Review Basic REVIEW OF SYSTEMS: CONSTITUTIONAL : Denies fever, chills, or sweats. Denies recent illness. EENT: Denies eye, ear, throat, or mouth pain or symptoms. Denies nasal or sinus congestion. CARDIOVASCULAR: Denies chest pain. RESPIRATORY: Denies cough, cold, or chest congestion. Denies shortness of breath, difficulty breathing, or wheezing. GASTROINTESTINAL: Denies abdominal pain. Denies nausea, vomiting, or diarrhea. MUSCULOSKELETAL: Denies neck or back pain or joint pain or swelling. SKIN: Denies rash or skin lesions. HEMATOLOGIC : Denies easy bruising or bleeding. LYMPHATIC: Denies swollen, enlarged glands. NEUROLOGICAL: Denies altered mental status or loss of consciousness. Has a headache. Inability to ambulate without falling. ALL OTHER SYSTEMS REVIEWED AND NEGATIVE. Physical Exam - Notes Notes: General Appearance: Well nourished, alert, cooperative, no acute distress, no obvious discomfort. Vitals: reviewed, See vital signs table. Head: Very small abrasion to forehead without significant swelling. Eyes: PERRL, EOMI, Conjuctiva clear Mouth: No decreasd moisture Neck: Supple, no neck tenderness, full range of motion of neck without pain. Lungs: No wheezing, No rales, No rhonci, No accessory muscle use, good air exchange bilaterally. Heart: Normal rate, Regular rythm, No murmur, no rub Abdomen: Normal BS, soft, No rigidity, No abdominal tenderness, No guarding, no rebound, no abdominal masses, no organomegaly Extremities: strength 5/5 in all extremities, good pulses in all extremities, no swelling or tenderness in the extremities, no edema. Skin: warm, dry, appropriate color, no rash Neuro: speech clear, oriented x 3, normal affect, responds appropriately to questions. Symmetric facial movement. Patient is able to lift his extremities off the bed however is obviously weak and doing so. He appears to be globally weak and he is not focally more weak on one side versus the other. He is able to feel me touch distal portions of all extremities except for the right lower extremity which is amputated. It is difficult to determine if she has good coordination of movements as the patient will not lift his arms and legs off the bed for more than a few seconds therefore it is difficult to do [id number] testing or rapid alternating movements. Course - Re-evaluation Re-evalutation: 09/03/18 06:55 I reviewed the patient's records and the patient has had episodes of dizziness and has been admitted for them over last year. Family says the dizziness and difficulty ambulating has become gradually worse over the course of the year. The original thought appears to be that his symptoms were related to peripheral vertigo however I am concerned that there may be something more going on being t hat he had a positive MRI of his brain 2 days ago which showed demyelinating lesions. He has progressed to the point now where he cannot ambulate on his own and he has been falling frequently. He obviously has taken along more Neurontin and then was prescribed over the last 48 hours based on the number of pills left in his bottle; however, his symptoms have been progressing significantly and was already having a large amount of difficulty ambulating prior to being prescribed the Neurontin. I therefore feel that he does need neurology evaluation. I did speak with Dr. Castillo, neurologist at [facility] in [place]. She was very kind and agreed to accept the patient for transfer for further work-up. I was able look up the patient's previous MRI of his brain from a few years ago which did not show the same lesions. Therefore this does appear to be new. On exam patient does not have any new injuries I feel that require x-ray. He does not have any deformities. He says he did his head last night but she does not have any significant swelling or bruising to the head and did not vomit and is not on any blood thinning medications. At this time patient will be close mo nitored until transferred to [facility] for neurology evaluation and workup. Dictation of this chart was performed using voice recognition software; therefore, there may be some unintended grammatical errors. - Laboratory Result Diagrams: 09/03/18 05:10 09/03/18 05:10 Laboratory results interpreted by me: 09/03/18 09/03/18 05:10 05:10 Hgb 9.6 L Hct 30.7 L MCV 66 L MCH 20.8 L MCHC 31.3 L RDW 19.1 H Carbon Dioxide 32 H Discharge - Discharge Clinical Impression: Demyelinating disease, Ambulatory dysfunction Condition: Stable Disposition: [facility]
[2018-09-03] MEDS ORDERED: OXYCODONE-ACETAMINOPHEN 5-325 MG TABLET PO ONE (09:55)
--- NOTE | 2018-09-03 09:55 | ER Document Report ---
Doctor's Note Notes: 09/03/18 09:55 Brief morning rounds. Chart reviewed and patient interviewed. Patient is complaining of a headache. Waiting for his ride to [facility] which should be here momentarily. Patient appears to be medically stable for transfer. Lia Moraes MD
[2018-09-03 10:00] VITALS: BP 107/82
== END 2018-09-03 09:57 | disposition short-term general hospital (02) ==
LOC: ER 03:31
DX: G37.9 Demyelinating disease of central nervous system, unspecified (principal); R26.2 Difficulty in walking, not elsewhere classified; R51 Headache; R42 Dizziness and giddiness; F17.200 Nicotine dependence, unspecified, uncomplicated; I10 Essential (primary) hypertension; E11.9 Type 2 diabetes mellitus without complications; Z87.442 Personal history of urinary calculi; Z86.14 Personal history of Methicillin resistant Staphylococcus aureus infection; Z89.511 Acquired absence of right leg below knee
CPT/HCPCS: 99284; 96372; 36415; 85025; 85610; 85730; 80053; A9270 ×2; J2405

== ENCOUNTER → 2018-09-30 | Outpatient (CLI) | payer MEDICARE, MEDICAID ==
--- NOTE | 2018-09-30 19:45 | XCELERA REPORT ---
[address] [address] Upper Extremity Venous Evaluation Name: YESSY ALMODOVAR Age: 53 yrs Gender: Male : 1965 Patient Status: Outpatient Patient Location: Study Date: 09/30/2018 01:35 PM Procedure: Unilateral duplex scan of the left upper extremity veins was performed, including responses to compression and other maneuvers. Reason For Study: LUE SWELLING Ordering Physician: ALEXUS AGGARWAL Performed By: Elaine Solomon Left Sided Venous Evaluation Abnormal vessel filling, no compression partial Colour flow. Slightly shrunken vein with echogenic content. in the Internal Jugular. Echo poor content, non compressible, no Colour flow in mid to proximal forearm Cephalic vein. Otherwise normal vessel filling wall to wall, compression and augmentation as well as Colour flow. Critical Findings Discussed with Dr Aggarwal. 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 Acute superficial phlebitis in a portion of the Cephalic vein. : ALEXUS AGGARWAL > Kevon Sawyer
== END ==
LOC: SP 12:07
PROVIDERS: ATTEND Family Medicine
DX: M25.512 Pain in left shoulder (principal); R22.32 Localized swelling, mass and lump, left upper limb
CPT/HCPCS: 36415; 85652; 86140; 93971

== ENCOUNTER 2018-10-09 17:12 | Emergency (ER) | payer MEDICARE, MEDICAID ==
[2018-10-09 17:16] VITALS: BP 144/87
--- NOTE | 2018-10-09 19:50 | RADIOLOGY REPORT (SQ) ---
EXAM DESCRIPTION: VENOUS UNILATERAL UPPER COMPLETED DATE/TIME: 10/09/2018 7:30 pm REASON FOR STUDY: dvt week ago in elbow COMPARISON: None. TECHNIQUE: Dynamic and static sanches scale and color images acquired of the left arm venous system. Se lected spectral images acquired with additional compression and augmentation maneuvers. The contralat eral subclavian vein and internal jugular vein were also imaged. Images stored on PACS. LIMITATIONS: None. FINDINGS: INTERNAL JUGULAR VEIN: Normal phasicity, compression, augmentation. No visualized echogeni c material on sanches scale. No defects on color images. Comparison opposite side normal. SUBCLAVIAN VEIN: Normal compression, augmentation. No visualized echogenic material on sanches scale. No defects on color images. AXILLARY VEIN: Normal compression, augmentation. No visualized echogenic material on sanches scale. No d efects on color images. BRACHIAL VEIN: Normal compression, augmentation. No visualized echogenic material on sanches scale. No d efects on color images. BASILIC VEIN: Normal compression, augmentation. No visualized echogenic material on sanches scale. No de fects on color images. CEPHALIC VEIN: Noncompressible in the forearm segment. OTHER: No other significant finding. CONTRALATERAL SUBCLAVIAN VEIN AND INTERNAL JUGULAR VEIN: Normal phasicity, compression and augmentation. No visualized echogenic material on sanches scale. No de fects on color images. IMPRESSION: No DVT. Noncompressible cephalic vein in the forearm segment. TECHNICAL DOCUMENTATION: JOB ID: [id number] [employer]- All Rights Reserved Reading location - IP/workstation name: [email or web address]
== END 2018-10-09 22:43 | disposition left against medical advice (07) ==
LOC: ER 17:12
DX: Z53.21 Procedure and treatment not carried out due to patient leaving prior to being seen by health care provider (principal); M79.603 Pain in arm, unspecified
CPT/HCPCS: 93971

== ENCOUNTER 2018-11-18 01:14 | Emergency (ER) | payer MEDICARE, MEDICAID ==
--- NOTE | 2018-11-18 01:51 | ER Document Report ---
ED Extremity Problem, Lower - General Chief Complaint: Knee Pain Stated Complaint: KNEE/BACK PAIN Time Seen by Provider: 11/18/18 01:49 Primary Care Provider: KASSANDRA CARABALLO MD [Primary Care Provider] - Follow up as needed Mode of Arrival: Ambulatory Information source: Patient Notes: HISTORY OF PRESENT ILLNESS: Patient is a 53-year-old male with an extensive past medical history including syncope and vertigo who presents with recurrent syncopal episode while at work. Patient reports that he felt dizzy similar to his episodes of vertigo, then he reports "before I knew what I was on the floor." Patient is unsure if he hit his head, but states that he immediately had right lower back pain and right leg pain. He denies preceding symptoms including palpitations, vision changes, chest pain, or difficulty breathing. Mechanism of injury: Syncope Location: Right lower back, right leg Onset: Prior to arrival Provocation: Unknown Quality: Dizziness Radiation: None Severity: Mild Timing: Resolved Numbness/Tingling: None Dominant hand: Right REVIEW OF SYSTEMS: CONSTITUTIONAL : Denies fever or chills, no sweats. Denies recent illness. EENT: Denies eye, ear, throat, or mouth pain or symptoms. Denies nasal or sinus congestion. CARDIOVASCULAR: Denies chest pain. RESPIRATORY: Denies cough, cold, or chest congestion. Denies shortness of breath, difficulty breathing, or wheezing. GASTROINTESTINAL: Denies abdominal pain. Denies nausea, vomiting, or diarrhea. Denies constipation. GENITOURINARY: Denies difficulty urinating, painful urination, burning, frequency, or blood in urine. MUSCULOSKELETAL: Positive for right lower back and right leg pain. SKIN: Denies rash or skin lesions. HEMATOLOGIC : Denies easy bruising or bleeding. LYMPHATIC: Denies swollen, enlarged glands. NEUROLOGICAL: Positive for syncope. Denies weakness or paralysis or loss of use of either side. Denies problems with gait or speech. Denies sensory or motor loss. PSYCHIATRIC: Denies anxiety or stress or depression. All other systems reviewed and negative. PHYSICAL EXAMINATION: GENERAL: Well-appearing, well-nourished and in no acute distress. HEAD: Atraumatic, normocephalic. No scalp deformity, depression, or crepitance. EYES: Pupils are 3 mm and equal/round/reactive to light, extraocular movements intact, sclera anicteric, conjunctiva are normal. ENT: Nares patent bilaterally, oropharynx clear without exudates or palatal petechia. Moist mucous membranes. No tonsil hypertrophy. NECK: Normal range of motion, supple without lymphadenopathy. LUNGS: Breath sounds present, equal, and clear to auscultation bilaterally. No wheezes, rales, or rhonchi. HEART: Regular rate and rhythm without murmurs, rubs, or gallops. 2+ peripheral pulses. Normal capillary refill. ABDOMEN: Soft, nontender, nondistended. Normoactive bowel sounds. No guarding, no rebound. No masses appreciated. BACK: Mild tenderness in the right lower flank, no bruising. Normal contour, no midline tenderness. Rectal exam deferred. GENITAL/PELVC: Deferred. EXTREMITIES: Right below the knee amputation is present. Normal range of motion, no obvious deformity. No pitting or edema. No cyanosis and normal capillary refill <2 seconds. NEUROLOGICAL: No focal neurological deficits. Moves all extremities spontaneously and on command. PSYCH: Normal mood, normal affect. No suicidal thoughts/ideations. No homicidal thoughts/ideations. No hallucinations. SKIN: Warm, dry, normal turgor, no rashes or lesions noted. ASSESSMENT AND PLAN: This patient is a 53-year-old male who presents with right lower back and right leg pain after a syncopal episode while at work. I have discussed with the patient the possibility of a head injury and offered CT scan of the head, which the patient has declined. 1. Will give intramuscular Toradol with oral Valium. 2. Will reassess for improvement. TRAVEL OUTSIDE OF THE [place] IN LAST 30 DAYS: No - HPI Location: Back Occurred: Just prior to arrival Where: Work Onset/Duration: Sudden Quality of pain: Achy, Cramping Severity: Mild Pain Level: 1 Context: Fell, Other - Lightheaded Recent injury: Yes Associated symptoms: Other - Back pain, right knee pain Exacerbated by: Movement, Walking Relieved by: Nothing - Related Data Allergies/Adverse Reactions: aripiprazole [From Abilify] Adverse Reaction (Severe, Verified 11/18/18 01:15) "uncontrollable muscle tremors" Past Medical History - General Information source: Patient - Social History Smoking Status: Never Smoker Chew tobacco use (# tins/day): No Frequency of alcohol use: None Drug Abuse: None Lives with: Family Family History: Reviewed & Not Pertinent, CAD, Hypertension, Other - ulcers father and sister Patient has suicidal ideation: No Patient has homicidal ideation: No - Past Medical History Cardiac Medical History: Reports: Hx Hypertension Denies: Hx Coronary Artery Disease, Hx Heart Attack, Hx Heart Murmur Pulmonary Medical History: Reports: None Denies: Hx Asthma, Hx Bronchitis, Hx COPD, Hx Pneumonia EENT Medical History: Reports: None Neurological Medical History: Reports: None. Denies: Hx Cerebrovascular Accident, Hx Seizures Endocrine Medical History: Reports: Hx Diabetes Mellitus Type 2 - Since gastric bypass has been able to stop all medications Renal/ Medical History: Reports: Hx Kidney Stones. Denies: Hx Peritoneal Dialysis Malignancy Medical History: Reports None GI Medical History: Reports: Hx Gastroesophageal Reflux Disease, Hx Ulcer - 4x. Denies: Hx Pancreatitis Musculoskeletal Medical History: Reports Hx Arthritis, Denies Hx Systemic Lupus Erythematosus Skin Medical History: Reports Hx MRSA Psychiatric Medical History: Reports: Hx Bipolar Disorder, Hx Depression Traumatic Medical History: Reports: Hx Fractures - RT ankle 2010 Infectious Medical History: Reports: None Past Surgical History: Reports: Hx Abdominal Surgery - Repair of complications from gastric bypass, Hx Appendectomy - 1975, Hx Bowel Surgery - bowel perforation 09/26/2015, May 2016, Hx Gastric Bypass Surgery - 02/19/13, Hx Orthopedic Surgery - Right below-knee amputation, Hx Tonsillectomy - 1978 - Immunizations Immunizations up to date: Yes Hx Diphtheria, Pertussis, Tetanus Vaccination: Yes Hx Pneumococcal Vaccination: 03/03/11 Review of Systems - Review of Systems Constitutional: No symptoms reported EENT: No symptoms reported Cardiovascular: No symptoms reported Respiratory: No symptoms reported Gastrointestinal: No symptoms reported Genitourinary: No symptoms reported Male Genitourinary: No symptoms reported Musculoskeletal: See HPI, Back pain, Muscle pain Skin: No symptoms reported Hematologic/Lymphatic: No symptoms reported Neurological/Psychological: No symptoms reported -: Yes All other systems reviewed and negative Physical Exam - Vital signs Vitals: Temp Pulse Resp BP Pulse Ox 98.6 F 94 20 140/90 H 97 11/18/18 01:16 11/18/18 01:16 11/18/18 01:16 11/18/18 01:16 11/18/18 01:16 Interpretation: Normal Course - Re-evaluation Re-evalutation: 11/18/18 04:35 Will discharge the patient home with strict return precautions and follow-up with back pain and leg pain after falling. All results were explained to and discussed with the patient, and all questions addressed and answered for the patient. The patient voices both understanding and agreeing with the plan. - Vital Signs Vital signs: Temp Pulse Resp BP Pulse Ox 98.6 F 94 16 140/90 H 97 11/18/18 01:16 11/18/18 01:16 11/18/18 01:30 11/18/18 01:16 11/18/18 01:16 - Laboratory Result Diagrams: 11/18/18 03:55 Laboratory results interpreted by me: 11/18/18 03:55 RBC 4.04 L Hgb 8.3 L Hct 26.3 L MCV 65 L MCH 20.4 L MCHC 31.4 L RDW 19.5 H Discharge - Discharge Clinical Impression: Muscle strain Condition: Good Disposition: HOME, SELF-CARE Instructions: Muscle Strain ([facility]) Additional Instructions: You have been evaluated in the Emergency Department for back and leg pain after passing out at work. While here, you had blood work that was normal for you and it is now safe to be discharged home. Please follow-up with your primary physician as instructed in one week to be rechecked. Return to the Emergency Department if you experience worsening weakness, bloody stools, high fevers, worsening pain, or any other concerning symptoms. Prescriptions: Tramadol HCl [Ultram 50 mg Tablet] 50 mg PO Q6HP PRN #28 tab PRN Reason: For Pain Referrals: KASSANDRA CARABALLO MD [Primary Care Provider] - Follow up as needed Print Language: Tristanian
[2018-11-18] MEDS ORDERED: KETOROLAC TROMETHAMINE 60 MG/2 ML SDV IM ONE (02:22)
[2018-11-18] MEDS ORDERED: DIAZEPAM 5 MG TABLET PO ONE (02:22)
[2018-11-18 04:04] LABS: ABSOLUTE EOSINOPHILS # (AUTO) 0.3 10^3/uL (0.0-0.6); ABSOLUTE LYMPHOCYTES (AUTO) 1.8 10^3/uL (0.5-4.7); ABSOLUTE MONOCYTES (AUTO) 0.7 10^3/uL (0.1-1.4); ABSOLUTE NEUT (AUTO) 4.6 10^3/uL (1.7-8.2); BASOPHILS % (AUTO) 0.6 % (0-2); EOSINOPHILS % (AUTO) 3.8 % (0-6); HEMATOCRIT 26.3 % (37.9-51.0); HEMOGLOBIN 8.3 g/dL (13.5-17.0); LYMPHOCYTES % (AUTO) 24.7 % (13-45); MEAN CORPUSCULAR HEMOGLOBIN 20.4 pg (27.0-33.4); MEAN CORPUSCULAR HGB CONC 31.4 g/dL (32.0-36.0); MEAN CORPUSCULAR VOLUME 65 fl (80-97); MONOCYTES % (AUTO) 8.8 % (3-13); PLATELET COUNT 246 10^3/uL (150-450); RED BLOOD COUNT 4.04 10^6/uL (4.35-5.55); RED CELL DISTRIBUTION WIDTH 19.5 % (11.5-14.0); SEGMENTED NEUTROPHILS % (AUTO) 62.1 % (42-78); TOTAL CELLS COUNTED % (AUTO) 100 %; WHITE BLOOD COUNT 7.5 10^3/uL (4.0-10.5)
[2018-11-18 04:50] VITALS: BP 146/87
== END 2018-11-18 04:50 | disposition home or self-care (01) ==
LOC: ER 01:14
DX: M79.604 Pain in right leg (principal); M54.9 Dorsalgia, unspecified; R42 Dizziness and giddiness; R55 Syncope and collapse; W19.XXXA Unspecified fall, initial encounter; Y99.0 Civilian activity done for income or pay
CPT/HCPCS: 36415; 85025; A9270; J1885

== ENCOUNTER 2018-11-24 19:17 | Emergency (ER) | payer MEDICARE, MEDICAID ==
[2018-11-24 19:42] VITALS: BP 129/86
[2018-11-24] MEDS ORDERED: METHOCARBAMOL 500 MG TABLET PO ONE (19:53)
[2018-11-24] MEDS ORDERED: ONDANSETRON 4 MG TAB.RAPDIS PO ONE (19:53)
--- NOTE | 2018-11-24 19:56 | ER Document Report ---
ED Medical Screen (RME) - General Chief Complaint: Head Injury Stated Complaint: FELL Time Seen by Provider: 11/24/18 19:51 Primary Care Provider: KASSANDRA CARABALLO MD [Primary Care Provider] - Follow up as needed Mode of Arrival: Wheelchair Information source: Patient Notes: 53-year-old male with history of BKA DVT vertigo diabetes pregastric bypass and migraines presents to the emergency department after he became dizzy and fell hitting his head possible change in LOC. Complains of some nausea now. Reports he feels cluster migraine coming on for which he takes Robaxin for. No complaints of fever vomiting or diarrhea. I have greeted and performed a rapid initial assessment of this patient. A comprehensive ED assessment and evaluation of the patient, analysis of test results and completion of the medical decision making process will be conducted by additional ED providers. Dictation of this chart was performed using voice recognition software; therefo re, there may be some unintended grammatical errors. TRAVEL OUTSIDE OF THE [place] IN LAST 30 DAYS: No - Related Data Allergies/Adverse Reactions: aripiprazole [From Docurated] Adverse Reaction (Severe, Verified 11/18/18 01:15) "uncontrollable muscle tremors" Past Medical History - Past Medical History Cardiac Medical History: Reports: Hx Hypertension Denies: Hx Coronary Artery Disease, Hx Heart Attack, Hx Heart Murmur Pulmonary Medical History: Denies: Hx Asthma, Hx Bronchitis, Hx COPD, Hx Pneumonia Neurological Medical History: Denies: Hx Cerebrovascular Accident, Hx Seizures, Hx Parkinson's Disease Endocrine Medical History: Reports: Hx Diabetes Mellitus Type 2 - Since gastric bypass has been able to stop all medications Renal/ Medical History: Reports: Hx Kidney Stones. Denies: Hx Peritoneal Dialysis GI Medical History: Reports: Hx Gastroesophageal Reflux Disease, Hx Ulcer - 4x. Denies: Hx Pancreatitis Musculoskeltal Medical History: Reports Hx Arthritis, Denies Hx Systemic Lupus Erythematosus Skin Medical History: Reports Hx MRSA Psychiatric Medical History: Reports: Hx Bipolar Disorder, Hx Depression Traumatic Medical History: Reports: Hx Fractures - RT ankle 2010 Infectious Medical History: Past Surgical History: Reports: Hx Abdominal Surgery - Repair of complications from gastric bypass, Hx Appendectomy - 1975, Hx Bowel Surgery - bowel perforation 09/26/2015, May 2016, Hx Gastric Bypass Surgery - 02/19/13, Hx Orthopedic Surgery - Right below-knee amputation, Hx Tonsillectomy - 1978 - Immunizations Immunizations up to date: Yes Hx Diphtheria, Pertussis, Tetanus Vaccination: Yes History of Influenza Vaccine for 12/2016 - 05/2017 Season: Yes Influenza Administration Date for 12/2016 - 05/2017 Season: 01/01/17 Physical Exam - Vital signs Vitals: Temp Pulse BP Pulse Ox 98.2 F 81 129/86 H 98 11/24/18 19:41 11/24/18 19:41 11/24/18 19:41 11/24/18 19:41 Course - Vital Signs Vital signs: Temp Pulse Resp BP Pulse Ox 98.2 F 81 129/86 H 98 11/24/18 19:41 11/24/18 19:41 11/24/18 19:41 11/24/18 19:41 Doctor's Discharge - Discharge Referrals: KASSANDRA CARABALLO MD [Primary Care Provider] - Follow up as needed
[2018-11-24 21:31] LABS: ABSOLUTE EOSINOPHILS # (AUTO) 0.4 10^3/uL (0.0-0.6); ABSOLUTE LYMPHOCYTES (AUTO) 1.7 10^3/uL (0.5-4.7); ABSOLUTE MONOCYTES (AUTO) 0.7 10^3/uL (0.1-1.4); ABSOLUTE NEUT (AUTO) 3.7 10^3/uL (1.7-8.2); BASOPHILS % (AUTO) 0.5 % (0-2); EOSINOPHILS % (AUTO) 5.8 % (0-6); HEMATOCRIT 29.9 % (37.9-51.0); HEMOGLOBIN 9.4 g/dL (13.5-17.0); LYMPHOCYTES % (AUTO) 26.3 % (13-45); MEAN CORPUSCULAR HEMOGLOBIN 20.9 pg (27.0-33.4); MEAN CORPUSCULAR HGB CONC 31.3 g/dL (32.0-36.0); MEAN CORPUSCULAR VOLUME 67 fl (80-97); MONOCYTES % (AUTO) 10.6 % (3-13); PLATELET COUNT 257 10^3/uL (150-450); RED BLOOD COUNT 4.48 10^6/uL (4.35-5.55); RED CELL DISTRIBUTION WIDTH 20.3 % (11.5-14.0); SEGMENTED NEUTROPHILS % (AUTO) 56.8 % (42-78); TOTAL CELLS COUNTED % (AUTO) 100 %; WHITE BLOOD COUNT 6.4 10^3/uL (4.0-10.5)
[2018-11-24 21:37] LABS: INTERNATIONAL RATION (INR) 0.92; PROTHROMBIN TIME 12.3 SEC (11.4-15.4)
[2018-11-24 21:38] LABS: PARTIAL THROMBOPLASTIN TIME 31.9 SEC (23.5-35.8)
[2018-11-24 21:46] LABS: ALBUMIN 3.9 g/dL (3.5-5.0); ALKALINE PHOSPHATASE 85 U/L (38-126); ANION GAP 8 (5-19); ASPARTATE AMINO TRANSFERASE 31 U/L (17-59); BILIRUBIN,DIRECT 0.1 mg/dL (0.0-0.4); BILIRUBIN,TOTAL 0.2 mg/dL (0.2-1.3); BLOOD UREA NITROGEN 9 mg/dL (7-20); CARBON DIOXIDE 28 mmol/L (22-30); CHLORIDE 103 mmol/L (98-107); GLUCOSE 98 mg/dL (75-110); POTASSIUM 4.2 mmol/L (3.6-5.0); TOTAL PROTEIN 6.9 g/dL (6.3-8.2)
[2018-11-24 23:07] LABS: APPEARANCE,URINE CLEAR; BILIRUBIN,URINE NEGATIVE (NEGATIVE); COLOR,URINE YELLOW; GLUCOSE, URINE NEGATIVE (NEGATIVE); KETONES,URINE NEGATIVE (NEGATIVE); LEUKOCYTE ESTERASE,URINE NEGATIVE (NEGATIVE); NITRITE,URINE NEGATIVE (NEGATIVE); PROTEIN,URINE NEGATIVE (NEGATIVE); URINE SPECIFIC GRAVITY 1.019
--- NOTE | 2018-11-25 11:41 | EKG REPORT ---
SEVERITY:- ABNORMAL ECG - SINUS RHYTHM LEFT VENTRICULAR HYPERTROPHY : Confirmed by: Ashley Castellanos 25-Nov-2018 11:40:22
== END 2018-11-24 21:55 | disposition left against medical advice (07) ==
LOC: ER 19:17
DX: S09.90XA Unspecified injury of head, initial encounter (principal); W19.XXXA Unspecified fall, initial encounter; R11.0 Nausea; R42 Dizziness and giddiness; I10 Essential (primary) hypertension; G43.809 Other migraine, not intractable, without status migrainosus; Z79.899 Other long term (current) drug therapy; Z98.84 Bariatric surgery status; Z53.20 Procedure and treatment not carried out because of patient's decision for unspecified reasons
CPT/HCPCS: 93005; 99281; 36415; 85025; 85610; 85730; 80053; 81001; 93010; A9270 ×2; S0119

== ENCOUNTER → 2018-11-25 | Outpatient (CLI) | payer MEDICARE, MEDICAID ==
[2018-11-25 12:14] LABS: ABSOLUTE EOSINOPHILS # (AUTO) 0.3 10^3/uL (0.0-0.6); ABSOLUTE LYMPHOCYTES (AUTO) 1.5 10^3/uL (0.5-4.7); ABSOLUTE MONOCYTES (AUTO) 0.6 10^3/uL (0.1-1.4); ABSOLUTE NEUT (AUTO) 4.5 10^3/uL (1.7-8.2); BASOPHILS % (AUTO) 0.5 % (0-2); EOSINOPHILS % (AUTO) 4.8 % (0-6); HEMATOCRIT 28.9 % (37.9-51.0); LYMPHOCYTES % (AUTO) 21.3 % (13-45); MEAN CORPUSCULAR HEMOGLOBIN 20.7 pg (27.0-33.4); MEAN CORPUSCULAR VOLUME 67 fl (80-97); MONOCYTES % (AUTO) 8.1 % (3-13); PLATELET COUNT 238 10^3/uL (150-450); RED BLOOD COUNT 4.34 10^6/uL (4.35-5.55); RED CELL DISTRIBUTION WIDTH 20.1 % (11.5-14.0); SEGMENTED NEUTROPHILS % (AUTO) 65.3 % (42-78); TOTAL CELLS COUNTED % (AUTO) 100 %; WHITE BLOOD COUNT 6.9 10^3/uL (4.0-10.5)
== END ==
LOC: OD 11:35
PROVIDERS: ATTEND Family Medicine Geriatric Medicine
DX: D64.9 Anemia, unspecified (principal)
CPT/HCPCS: 36415; 85025

== ENCOUNTER 2018-12-04 12:50 | Outpatient (CLI) | payer MEDICARE, MEDICAID ==
[~2018-12-04 12:50] MED LIST changes: -EPINEPHRINE INJ 1 MG/10 ML DISP.SYRIN ONE; +FERUMOXYTOL (NON-ESRD) 510 MG/NS 100 ML IV PRN; -FLUMAZENIL INJ 0.5 MG/5 ML VIAL ONE; -GLUCAGON,HUMAN RECOMB 1 MG INJ ONE; -NALOXONE HCL INJ/PF 0.4 MG/1 ML SDV ONE; +NORMAL SALINE 250 ML IV PRN
[2018-12-04 13:18] VITALS: BP 122/70
== END 2018-12-04 14:38 | disposition home or self-care (01) ==
LOC: II 12:50 → 5TH 13:26 → II 14:38
PROVIDERS: ATTEND Internal Medicine Hematology & Oncology
PROC: 3E033GC Introduction of Other Therapeutic Substance into Peripheral Vein, Percutaneous Approach (ICD-10-PCS; principal; 2018-12-04)
DX: D50.9 Iron deficiency anemia, unspecified (principal); K90.9 Intestinal malabsorption, unspecified
CPT/HCPCS: 96365; Q0138; J7050

== ENCOUNTER 2018-12-11 13:06 | Outpatient (CLI) | payer MEDICARE, MEDICAID ==
[2018-12-11 13:20] VITALS: BP 129/71
== END 2018-12-11 14:08 | disposition home or self-care (01) ==
LOC: II 13:06 → 5TH 13:08 → II 14:08
PROVIDERS: ATTEND Internal Medicine Hematology & Oncology
PROC: 3E033GC Introduction of Other Therapeutic Substance into Peripheral Vein, Percutaneous Approach (ICD-10-PCS; principal; 2018-12-11)
DX: D50.9 Iron deficiency anemia, unspecified (principal); K90.9 Intestinal malabsorption, unspecified
CPT/HCPCS: 96365; Q0138; J7050

== ENCOUNTER 2018-12-25 15:45 | Emergency (ER) | payer MEDICARE, MEDICAID ==
[2018-12-25] MEDS ORDERED: ONDANSETRON 4 MG TAB.RAPDIS PO ONE (16:07)
--- NOTE | 2018-12-25 16:32 | RADIOLOGY REPORT (SQ) ---
EXAM DESCRIPTION: CT HEAD WITHOUT COMPLETED DATE/TIME: 12/25/2018 4:20 pm REASON FOR STUDY: fall COMPARISON: None. TECHNIQUE: Axial images acquired through the brain without intravenous contrast. Images reviewed wi th bone, brain and subdural windows. Additional sagittal and coronal reconstructions were generated. Images stored on PACS. All CT scanners at this facility use dose modulation, iterative reconstruction, and/or weight based d osing when appropriate to reduce radiation dose to as low as reasonably achievable (ALARA). [facility]: Dose Right [facility]: CareDose [facility]: Dose Right [facility]: Teradose 4D [facility]: uberVU LIMITATIONS: None. FINDINGS: There is no acute intracranial hemorrhage, vascular territorial infarct, extra-axial colle ction, mass effect, or midline shift. There is no effacement of cerebral sulci or basal subarachnoid cisterns. The sanches-white matter differentiation is preserved. The caliber of the ventricles is con cordant with the degree of sulcation. There is partial opacification of the frontal sinuses and ethmoid air cells ; there is no paranasal s inus air-fluid level. The orbits and globes are intact. There is no fracture of the calvarium. IMPRESSION: No acute intracranial abnormality. EVIDENCE OF ACUTE STROKE: NO. COMMENT: Quality ID # [id number]: Final reports with documentation of one or more dose reduction techniques (e.g., Automated exposure control, adjustment of the mA and/or kV according to patient size, use of iterative reconstruction technique) TECHNICAL DOCUMENTATION: JOB ID: [id number] 4471 A [employer]- All Rights Reserved Reading location - IP/workstation name: [email or web address]
--- NOTE | 2018-12-25 16:39 | RADIOLOGY REPORT (SQ) ---
EXAM DESCRIPTION: CT CERVICAL SPINE WITHOUT COMPLETED DATE/TIME: 12/25/2018 4:20 pm REASON FOR STUDY: fall pain COMPARISON: None. TECHNIQUE: Axial images acquired through the cervical spine without intravenous contrast. Images re viewed with lung, soft tissue and bone windows. Reconstructed coronal and sagittal MPR images review ed. Images stored on PACS. All CT scanners at this facility use dose modulation, iterative reconstruction, and/or weight based d osing when appropriate to reduce radiation dose to as low as reasonably achievable (ALARA). [facility]: Dose Right [facility]: CareDose [facility]: Dose Right [facility]: Teradose 4D [facility]: [place] LIMITATIONS: None. FINDINGS: ALIGNMENT: There is reversal of the normal lordotic curvature of the cervical spine. Ther e is no craniocervical or atlantoaxial dissociation. MINERALIZATION: Normal. VERTEBRAL BODIES: The cervical vertebral body heights are preserved. There is no fracture. DISCS: The intervertebral disc spaces from C3-C4 to C6-C7 are narrowed; at C3-C4, C4-C5, and C5-C6 th ere posterior disc osteophyte complexes that abuts the ventral aspect of the thecal sac without resul ting in high-grade spinal stenosis. FACETS, LATERAL MASSES, POSTERIOR ELEMENTS: There is uncovertebral hypertrophy from C3-C4 to C7-T1 to the results in varying degrees of foraminal stenosis (severe at C3-C4 on the left). The facets, lat eral masses and posterior elements are intact. HARDWARE: None in the spine. VISUALIZED RIBS: No fractures. LUNG APICES AND SOFT TISSUES: No pre or paravertebral hematoma. OTHER: No other finding. IMPRESSION: 1. No fracture or malalignment of the cervical spine. 2. Degenerative spondylosis of the cervical spine with severe foraminal stenosis at C3-C4 on the lef t due to uncovertebral hypertrophy. TECHNICAL DOCUMENTATION: JOB ID: [id number] Quality ID # [id number]: Final reports with documentation of one or more dose reduction techniques (e.g., Au tomated exposure control, adjustment of the mA and/or kV according to patient size, use of iterative reconstruction technique) 2010 [employer]- All Rights Reserved Reading location - IP/workstation name: [email or web address]
--- NOTE | 2018-12-25 16:53 | ER Document Report ---
ED General - General Chief Complaint: Fall Injury Stated Complaint: FALL Time Seen by Provider: 12/25/18 15:58 Primary Care Provider: KELLEN NEWELL MD [NO LOCAL MD] - Follow up as needed TRAVEL OUTSIDE OF THE [place] IN LAST 30 DAYS: No - Related Data Allergies/Adverse Reactions: aripiprazole [From Abilify] Adverse Reaction (Severe, Verified 11/18/18 01:15) "uncontrollable muscle tremors" Past Medical History - Social History Smoking Status: Never Smoker Chew tobacco use (# tins/day): No Drug Abuse: None Family History: Reviewed & Not Pertinent, CAD, Hypertension, Other - ulcers father and sister Patient has suicidal ideation: No Patient has homicidal ideation: No - Past Medical History Cardiac Medical History: Reports: Hx Hypertension Denies: Hx Coronary Artery Disease, Hx Heart Attack, Hx Heart Murmur Pulmonary Medical History: Denies: Hx Asthma, Hx Bronchitis, Hx COPD, Hx Pneumonia Neurological Medical History: Denies: Hx Cerebrovascular Accident, Hx Seizures, Hx Parkinson's Disease Endocrine Medical History: Reports: Hx Diabetes Mellitus Type 2 - Since gastric bypass has been able to stop all medications Renal/ Medical History: Reports: Hx Kidney Stones. Denies: Hx Peritoneal Dialysis GI Medical History: Reports: Hx Gastroesophageal Reflux Disease, Hx Ulcer - 4x. Denies: Hx Pancreatitis Musculoskeletal Medical History: Reports Hx Arthritis, Denies Hx Systemic Lupus Erythematosus Skin Medical History: Reports Hx MRSA Psychiatric Medical History: Reports: Hx Bipolar Disorder, Hx Depression Traumatic Medical History: Reports: Hx Fractures - RT ankle 2010 Infectious Medical History: Past Surgical History: Reports: Hx Abdominal Surgery - Repair of complications from gastric bypass, Hx Appendectomy - 1975, Hx Bowel Surgery - bowel perforation 09/26/2015, May 2016, Hx Gastric Bypass Surgery - 02/19/13, Hx Orthopedic Surgery - Right below-knee amputation, Hx Tonsillectomy - 1978 - Immunizations Immunizations up to date: Yes Hx Diphtheria, Pertussis, Tetanus Vaccination: Yes Hx Pneumococcal Vaccination: 03/03/11 Physical Exam - Vital signs Vitals: Temp Pulse Resp BP Pulse Ox 98.2 F 75 14 114/75 94 12/25/18 15:58 12/25/18 15:58 12/25/18 15:58 12/25/18 15:58 12/25/18 15:58 Course - Vital Signs Vital signs: Temp Pulse Resp BP Pulse Ox 98.2 F 75 14 114/75 94 12/25/18 15:58 12/25/18 15:58 12/25/18 15:58 12/25/18 15:58 12/25/18 15:58 Discharge - Discharge Clinical Impression: Orthostatic syncope Fall from standing Qualifiers: Encounter type: initial encounter Qualified Code(s): W19.XXXA - Unspecified fall, initial encounter Condition: Good Disposition: HOME, SELF-CARE Instructions: Syncopal Episode ([facility]), Concussion ([facility]) Referrals: KELLEN NEWELL MD [NO LOCAL MD] - Follow up in 3-5 days
[2018-12-25] MEDS ORDERED: KETOROLAC TROMETHAMINE INJ/PF 30 MG/1 ML SDV IV ONE (16:57)
[2018-12-25 17:39] VITALS: BP 117/74
--- NOTE | 2018-12-25 19:12 | EKG REPORT ---
SEVERITY:- ABNORMAL ECG - SINUS RHYTHM FIRST DEGREE AV BLOCK : Confirmed by: Carley Landon MD 25-Dec-2018 19:12:05
== END 2018-12-25 18:15 | disposition home or self-care (01) ==
LOC: ER 15:45
DX: Z04.3 Encounter for examination and observation following other accident (principal); R55 Syncope and collapse; I10 Essential (primary) hypertension; Z98.84 Bariatric surgery status
CPT/HCPCS: 93005; 99284; 96374; 70450; 72125; 93010; A9270; J1885; S0119

== ENCOUNTER → 2018-12-25 | Outpatient (CLI) | payer MEDICARE, MEDICAID | LOC: RAD 12:25 | PROVIDERS: ATTEND Specialist | DX: G35 Multiple sclerosis (principal) | CPT/HCPCS: 82565 ==

== ENCOUNTER 2018-12-26 10:18 | Emergency (ER) | payer MEDICARE, MEDICAID ==
--- NOTE | 2018-12-26 10:57 | ER Document Report ---
ED General - General Chief Complaint: Fall Stated Complaint: FALL-HEAD/NECK PAIN Time Seen by Provider: 12/26/18 10:31 Primary Care Provider: KASSANDRA CARABALLO MD [Primary Care Provider] - Follow up as needed Mode of Arrival: Ambulatory Information source: Patient, Relative, Emergency Med Personnel, [facility] Records Notes: 53-year-old male with hypertension, type 2 diabetes, bipolar disorder, recent diagnosis of MS presents after a fall at home. Patient states that he stood up became acutely dizzy (described as room spinning) and fell backwards striking his head on the floor. Sister states that she heard him fall and lying she got to the patient his eyes were closed and he was not responding. She states that this lasted approximately 2 minutes. Patient was seen yesterday for similar symptoms. He reports he is currently undergoing evaluation for his MS. He s tates that he has been dizzy for over a year and was initially diagnosed with benign positional vertigo but now the dizziness has been contributed to his MS. Patient is on Xarelto for an upper extremity thrombus. He is currently complaining of headache, nausea without vomiting. Patient denies any preceding chest pain, shortness of breath. TRAVEL OUTSIDE OF THE [place] IN LAST 30 DAYS: No - HPI Onset: Just prior to arrival Onset/Duration: Sudden Quality of pain: Achy, Throbbing Severity: Moderate Pain Level: 2 Associated symptoms: Body/muscle aches, Headache, Nausea, Other - Dizziness. denies: Nonproductive cough, Vomiting, Shortness of breath, Sweating, Weakness Exacerbated by: Standing Relieved by: Denies Similar symptoms previously: Yes Recently seen / treated by doctor: Yes - Related Data Allergies/Adverse Reactions: aripiprazole [From [facility]] Adverse Reaction (Severe, Verified 11/18/18 01:15) "uncontrollable muscle tremors" Past Medical History - General Information source: Patient, Relative, [facility] Records - Social History Smoking Status: Never Smoker Frequency of alcohol use: None Drug Abuse: None Lives with: Family Family History: Reviewed & Not Pertinent, CAD, Hypertension, Other - ulcers father and sister - Past Medical History Cardiac Medical History: Reports: Hx Hypertension Denies: Hx Coronary Artery Disease, Hx Heart Attack, Hx Heart Murmur Pulmonary Medical History: Denies: Hx Asthma, Hx Bronchitis, Hx COPD, Hx Pneumonia Neurological Medical History: Denies: Hx Cerebrovascular Accident, Hx Seizures, Hx Parkinson's Disease Endocrine Medical History: Reports: Hx Diabetes Mellitus Type 2 - Since gastric bypass has been able to stop all medications Renal/ Medical History: Reports: Hx Kidney Stones. Denies: Hx Peritoneal Dialysis GI Medical History: Reports: Hx Gastroesophageal Reflux Disease, Hx Ulcer - 4x. Denies: Hx Pancreatitis Musculoskeletal Medical History: Reports Hx Arthritis, Denies Hx Systemic Lupus Erythematosus Skin Medical History: Reports Hx MRSA Psychiatric Medical History: Reports: Hx Bipolar Disorder, Hx Depression Traumatic Medical History: Reports: Hx Fractures - RT ankle 2010 Infectious Medical History: Past Surgical History: Reports: Hx Abdominal Surgery - Repair of complications from gastric bypass, Hx Appendectomy - 1975, Hx Bowel Surgery - bowel perforation 09/26/2015, May 2016, Hx Gastric Bypass Surgery - 02/19/13, Hx Orthopedic Surgery - Right below-knee amputation, Hx Tonsillectomy - 1978 - Immunizations Immunizations up to date: Yes Hx Diphtheria, Pertussis, Tetanus Vaccination: Yes Hx Pneumococcal Vaccination: 03/03/11 Review of Systems - Review of Systems Constitutional: Weakness EENT: Other - Epistaxis. denies: Blurred vision Cardiovascular: Syncope. denies: Chest pain, Palpitations, Dyspnea Respiratory: denies: Cough, Short of breath Gastrointestinal: Nausea. denies: Abdominal pain, Vomiting, Blood streaked isak ls, Poor appetite, Poor fluid intake, Black stools Genitourinary: denies: Dysuria, Flank pain Musculoskeletal: Muscle pain, Neck pain Skin: denies: Rash Neurological/Psychological: Lost consciousness, Headaches -: Yes All other systems reviewed and negative Physical Exam - Vital signs Vitals: Resp Pulse Ox 13 97 12/26/18 10:26 12/26/18 10:26 - Notes Notes: PHYSICAL EXAMINATION: GENERAL: Well-appearing, well-nourished and in no acute distress. C collar in place. GCS 15 HEAD: Atraumatic, normocephalic. No cephalohematoma EYES: Pupils equal round and reactive to light, extraocular movements intact, sclera anicteric, conjunctiva are normal. ENT: Epistaxis right nares, oropharynx clear without exudates. Moist mucous membranes. No hemanotympanum . No blood in nares. No dental fracture NECK: Normal range of motion, supple without lymphadenopathy. Trachea midline. No midline tenderness LUNGS: Breath sounds clear to auscultation bilaterally and equal. No wheezes rales or rhonchi. HEART: Regular rate and rhythm without murmurs. Pulses intact all throughout. ABDOMEN: Soft, nontender, nondistended abdomen. No guarding, no rebound. No masses appreciated. Musculoskeletal: Normal range of motion, no pitting or edema. No cyanosis. Hip non tender, stable. Right BKA NEUROLOGICAL: Cranial nerves grossly intact. Normal speech, Normal sensory, motor, and reflex exams. PSYCH: Normal mood, normal affect. SKIN: Warm, No active bleeding Course - Re-evaluation Re-evalutation: 12/26/18 12:58 Laboratory 12/26/18 12/26/18 12/26/18 10:50 10:50 10:50 WBC 7.1 RBC 4.69 Hgb 10.7 L Hct 33.7 L MCV 72 L MCH 22.8 L MCHC 31.8 L RDW 28.3 H Plt Count 273 Lymph % (Auto) Not Reportable [place] % (Auto) Not Reportable Eos % (Auto) Not Reportable Baso % (Auto) Not Reportable Absolute Neuts (auto) Not Reportable Absolute Lymphs (auto) Not Reportable Absolute Monos (auto) Not Reportable Absolute Eos (auto) Not Reportable Absolute Basos (auto) Not Reportable Total Counted 100 Seg Neutrophils % Not Reportable Seg Neuts % (Manual) 70 Lymphocytes % (Manual) 15 Monocytes % (Manual) 13 Eosinophils % (Manual) 1 Basophils % (Manual) 1 Abs Neuts (Manual) 5.0 Abs Lymphs (Manual) 1.1 Abs Monocytes (Manual) 0.9 Absolute Eos (Manual) 0.1 Abs Basophils (Manual) 0.1 Smudge Cells PRESENT Platelet Comment ADEQUATE Anisocytosis 3+ Microcytosis 1+ Ovalocytes SLIGHT Sodium 137.0 Potassium 4.2 Chloride 99 Carbon Dioxide 27 Anion Gap 11 BUN 15 Creatinine 0.95 Est GFR ( Amer) > 60 Est GFR (MDRD) Non-Af > 60 Glucose 98 Calcium 9.2 Total Bilirubin 0.3 Direct Bilirubin 0.1 Neonat Total Bilirubin Not Reportable Neonat Direct Bilirubin Not Reportable Neonat Indirect Bili Not Reportable AST 30 ALT 15 Alkaline Phosphatase 80 Troponin I < 0.012 Total Protein 7.5 Albumin 4.[address] 12/26/18 10:53 IMPRESSION: CHRONIC DEGENERATIVE CHANGES. NO ACUTE FINDINGS. Head CT 12/26/18 10:53 IMPRESSION: NORMAL BRAIN CT WITHOUT CONTRAST. EVIDENCE OF ACUTE STROKE: NO. Temp Pulse Resp BP Pulse Ox 69 116/69 12/26/18 11:10 12/26/18 11:10 53-year-old male presents after a fall at home. States it was secondary to dizziness which he describes as the room spinning. He states this is been going on for over a year and was initially diagnosed with benign positional vertigo but recent MRI reveals that he has MS and his neurologist believes that his dizz iness is secondary to this. Patient is on Xarelto for upper extremity thrombus. Patient was found to be orthostatic positive. Admits to poor p.o. intake. I did offer the patient admission which he declines at this time. I did recommend that the patient should use a walker continuously to avoid falls as he has increased risk for intracranial hemorrhage due to his Xarelto use. 12/26/18 17:44 Patient did receive 2 L of IV fluids, meclizine, Valium. Admission was discussed again and patient declines. States he will follow-up with his neurologist as already planned. Patient was discharged home in stable condition - Vital Signs Vital signs: Temp Pulse Resp BP Pulse Ox 97.6 F 69 12 115/72 99 12/26/18 12:00 12/26/18 11:10 12/26/18 13:00 12/26/18 11:31 12/26/18 13:00 - Laboratory Result Diagrams: 12/26/18 10:50 12/26/18 10:50 Laboratory results interpreted by me: 12/26/18 12/26/18 10:50 12:55 Hgb 10.7 L Hct 33.7 L MCV 72 L MCH 22.8 L MCHC 31.8 L RDW 28.3 H Urine Ascorbic Acid 20 H - Diagnostic Test Radiology reviewed: Image reviewed, Reports reviewed Discharge - Discharge Clinical Impression: Epistaxis due to trauma, Orthostatic hypotension, Dizziness Syncope Qualifiers: Syncope type: unspecified Qualified Code(s): R55 - Syncope and collapse Fall from standing Qualifiers: Encounter type: initial encounter Qualified Code(s): W19.XXXA - Unspecified fall, initial encounter Condition: Good Disposition: HOME, SELF-CARE Instructions: Dizziness ([facility]), Orthostatic Hypotension ([facility]), Syncopal Episode ([facility]) Additional Instructions: You have been seen in the Emergency Department (ED) today following a fall. Your workup today did not reveal any injuries that require you to stay in the hospital. You can expect, though, to be stiff and sore for the next several days. You can take Tylenol 1000 mg every 6 hours as needed for pain. You can apply a hot pack or electric heating pad to the sore areas. You can also use topical "Aspercreme with lidocaine" to sore areas as needed. Please follow up with your primary care doctor as soon as possible regarding today's ED visit and your recent fall. Call your doctor or return to the ED if you develop a sudden or severe headache, confusion, slurred speech, facial droop, weakness or numbness in any arm or leg, extreme fatigue, vomiting more than two times, severe abdominal pain, or other symptoms that concern you. Prescriptions: Meclizine HCl [Antivert 12.5 mg Tablet] 12.5 mg PO BID PRN #14 tab PRN Reason: Walker [Folding Walker] 1 each MC ASDIR PRN #1 each PRN Reason: Referrals: KASSANDRA CARABALLO MD [Primary Care Provider] - Follow up as needed
[2018-12-26] MEDS ORDERED: ONDANSETRON HCL INJ/PF 4 MG/2 ML SDV IV ONE (11:00)
[2018-12-26] MEDS ORDERED: NORMAL SALINE 1000 ML 1,000 ML IV ONE (11:00)
[2018-12-26] MEDS ORDERED: DIAZEPAM INJ 10 MG/2 ML DISP.SYRIN IV ONE (11:00)
[2018-12-26 11:25] LABS: HEMATOCRIT 33.7 % (37.9-51.0); HEMOGLOBIN 10.7 g/dL (13.5-17.0); MEAN CORPUSCULAR HEMOGLOBIN 22.8 pg (27.0-33.4); MEAN CORPUSCULAR HGB CONC 31.8 g/dL (32.0-36.0); MEAN CORPUSCULAR VOLUME 72 fl (80-97); PLATELET COUNT 273 10^3/uL (150-450); RED BLOOD COUNT 4.69 10^6/uL (4.35-5.55); RED CELL DISTRIBUTION WIDTH 28.3 % (11.5-14.0); WHITE BLOOD COUNT 7.1 10^3/uL (4.0-10.5)
[2018-12-26 11:34] LABS: ALBUMIN 4.2 g/dL (3.5-5.0); ALKALINE PHOSPHATASE 80 U/L (38-126); ANION GAP 11 (5-19); ASPARTATE AMINO TRANSFERASE 30 U/L (17-59); BILIRUBIN,DIRECT 0.1 mg/dL (0.0-0.4); BILIRUBIN,TOTAL 0.3 mg/dL (0.2-1.3); BLOOD UREA NITROGEN 15 mg/dL (7-20); CALCIUM 9.2 mg/dL (8.4-10.2); CARBON DIOXIDE 27 mmol/L (22-30); CHLORIDE 99 mmol/L (98-107); GLUCOSE 98 mg/dL (75-110); POTASSIUM 4.2 mmol/L (3.6-5.0); TOTAL PROTEIN 7.5 g/dL (6.3-8.2)
[2018-12-26 11:44] LABS: ABSOLUTE LYMPHOCYTES# (MANUAL) 1.1 10^3/uL (0.5-4.7); ABSOLUTE MONOCYTES # (MANUAL) 0.9 10^3/uL (0.1-1.4); BASOPHILS % (MANUAL) 1 % (0-2); EOSINOPHILS % (MANUAL) 1 % (0-6); LYMPHOCYTES % (MANUAL) 15 % (13-45); MONOCYTES % (MANUAL) 13 % (3-13); SEGMENTED NEUTROPHILS % (MAN) 70 % (42-78); TOTAL CELLS COUNTED 100
[2018-12-26 11:47] LABS: ANISOCYTOSIS 3+; OVALOCYTES SLIGHT; PLATELET COMMENT ADEQUATE; SMUDGE CELLS PRESENT
--- NOTE | 2018-12-26 11:51 | RADIOLOGY REPORT (SQ) ---
EXAM DESCRIPTION: CT HEAD WITHOUT COMPLETED DATE/TIME: 12/26/2018 11:34 am REASON FOR STUDY: fall COMPARISON: 12/25/2018 TECHNIQUE: Axial images acquired through the brain without intravenous contrast. Images reviewed wi th bone, brain and subdural windows. Additional sagittal and coronal reconstructions were generated. Images stored on PACS. All CT scanners at this facility use dose modulation, iterative reconstruction, and/or weight based d osing when appropriate to reduce radiation dose to as low as reasonably achievable (ALARA). [facility]: Dose Right [facility]: CareDose [facility]: Dose Right [facility]: Teradose 4D [facility]: [employer] RADIATION DOSE: mGy. LIMITATIONS: None. FINDINGS: VENTRICLES: Normal size and contour. CEREBRUM: No masses. No hemorrhage. No midline shift. No evidence for acute infarction. Normal gra y/white matter differentiation. No areas of low density in the white matter. CEREBELLUM: No masses. No hemorrhage. No alteration of density. No evidence for acute infarction. EXTRAAXIAL SPACES: No fluid collections. No masses. ORBITS AND GLOBE: No intra- or extraconal masses. Normal contour of globe without masses. CALVARIUM: No fracture. PARANASAL SINUSES: Chronic frontal sinus disease. SOFT TISSUES: No mass or hematoma. OTHER: No other significant finding. IMPRESSION: NORMAL BRAIN CT WITHOUT CONTRAST. EVIDENCE OF ACUTE STROKE: NO. COMMENT: Quality ID # 436: Final reports with documentation of one or more dose reduction techniques (e.g., Automated exposure control, adjustment of the mA and/or kV according to patient size, use of iterative reconstruction technique) TECHNICAL DOCUMENTATION: JOB ID: [id number] [employer]- All Rights Reserved Reading location - IP/workstation name: [email or web address]
--- NOTE | 2018-12-26 11:52 | RADIOLOGY REPORT (SQ) ---
EXAM DESCRIPTION: CT CERVICAL SPINE WITHOUT COMPLETED DATE/TIME: 12/26/2018 11:34 am REASON FOR STUDY: fall COMPARISON: 12/25/2018 TECHNIQUE: Axial images acquired through the cervical spine without intravenous contrast. Images re viewed with lung, soft tissue and bone windows. Reconstructed coronal and sagittal MPR images review ed. Images stored on PACS. All CT scanners at this facility use dose modulation, iterative reconstruction, and/or weight based d osing when appropriate to reduce radiation dose to as low as reasonably achievable (ALARA). [facility]: Dose Right [facility]: CareDose [facility]: Dose Right [facility]: Teradose 4D [facility]: [employer] RADIATION DOSE: mGy. LIMITATIONS: None. FINDINGS: ALIGNMENT: Anatomic. MINERALIZATION: Normal. VERTEBRAL BODIES: No fractures or dislocation. DISCS: Multilevel disc space narrowing with osteophytes. FACETS, LATERAL MASSES, POSTERIOR ELEMENTS: Facet arthropathy. No fractures. No dislocation. No ac laurie findings. HARDWARE: None in the spine. VISUALIZED RIBS: No fractures. LUNG APICES AND SOFT TISSUES: No significant or acute findings. OTHER: No other significant finding. IMPRESSION: CHRONIC DEGENERATIVE CHANGES. NO ACUTE FINDINGS. TECHNICAL DOCUMENTATION: JOB ID: [id number] Quality ID # [id number]: Final reports with documentation of one or more dose reduction techniques (e.g., Au tomated exposure control, adjustment of the mA and/or kV according to patient size, use of iterative reconstruction technique) 2010 [employer]- All Rights Reserved Reading location - IP/workstation name: [email or web address]
[2018-12-26] MEDS ORDERED: RINGERS SOLUTION,LACTATED 1,000 ML IV ONE (11:54)
[2018-12-26] MEDS ORDERED: MECLIZINE HCL 25 MG TABLET PO ONE (11:54)
[2018-12-26] MEDS ORDERED: METHYLPREDNISOLONE INJ 125 MG/2 ML SDV IV ONE (13:06)
--- NOTE | 2018-12-26 13:09 | EKG REPORT ---
SEVERITY:- ABNORMAL ECG - SINUS RHYTHM FIRST DEGREE AV BLOCK : Confirmed by: Carley Landon MD 26-Dec-2018 13:08:58
[2018-12-26 13:22] VITALS: BP 115/72
[2018-12-26 13:50] LABS: AMORPHOUS SEDIMENT,URINE TRACE /HPF; APPEARANCE,URINE SLIGHTLY-CLOUDY; BILIRUBIN,URINE NEGATIVE (NEGATIVE); CALCIUM OXALATE CRYSTALS,URINE MODERATE /HPF; COLOR,URINE YELLOW; GLUCOSE, URINE NEGATIVE (NEGATIVE); KETONES,URINE NEGATIVE (NEGATIVE); LEUKOCYTE ESTERASE,URINE NEGATIVE (NEGATIVE); NITRITE,URINE NEGATIVE (NEGATIVE); PROTEIN,URINE NEGATIVE (NEGATIVE); URINE SPECIFIC GRAVITY 1.011; UROBILINOGEN,URINE NEGATIVE mg/dL (<2.0)
[2018-12-26 14:00] LABS: URINE AMPHETAMINES SCREEN NEGATIVE; URINE BARBITURATES SCREEN NEGATIVE; URINE BENZODIAZEPINES SCREEN NEGATIVE; URINE COCAINE SCREEN NEGATIVE; URINE MARIJUANA (THC) SCREEN NEGATIVE; URINE METHADONE SCREEN NEGATIVE; URINE PHENCYCLIDINE SCREEN NEGATIVE
== END 2018-12-26 14:33 | disposition home or self-care (01) ==
LOC: ER 10:18
DX: I95.1 Orthostatic hypotension (principal); R04.0 Epistaxis; R42 Dizziness and giddiness; R51 Headache; M54.2 Cervicalgia; M79.10 Myalgia, unspecified site; R11.0 Nausea; I10 Essential (primary) hypertension; E11.9 Type 2 diabetes mellitus without complications; G35 Multiple sclerosis; W19.XXXA Unspecified fall, initial encounter
CPT/HCPCS: 93005; 99284; 96361; 96374; 96375; 36415; 85025; 80053; 81001; 84484; 80307; 70450; 72125; 93010; J3360; A9270; J2930; J2405; J7030; J7120

== ENCOUNTER → 2019-01-01 | Outpatient (CLI) | payer MEDICARE, MEDICAID ==
[~2019-01-01] MED LIST changes: +DIAZEPAM 5 MG TABLET ONE; -FERUMOXYTOL (NON-ESRD) 510 MG/NS 100 ML IV PRN; -NORMAL SALINE 250 ML IV PRN
--- NOTE | 2019-01-01 11:28 | RADIOLOGY REPORT (SQ) ---
EXAM DESCRIPTION: MRI HEAD COMBO COMPLETED DATE/TIME: 01/01/2019 11:04 am REASON FOR STUDY: (G35)MULTIPLE SCLEROSIS G35 MULTIPLE SCLEROSIS COMPARISON: 09/01/2018 TECHNIQUE: Multiplanar imaging includes noncontrasted T1, T2, FLAIR, diffusion with ADC map and post gadolinium contrast T1 sequences. Images stored on PACS. CONTRAST TYPE AND DOSE: 20 mL Dotarem. RENAL FUNCTION: Not indicated. ACR Type II contrast agent associated with few, if any, unconfounded cases of NSF LIMITATIONS: None. FINDINGS: ANATOMY: No anomalies. Normal vascular flow voids. Pituitary fossa normal. CSF SPACES: Normal in size and contour. No hemorrhage. CEREBRUM: Scattered subcentimeter white matter lesions periventricular distribution not significantly changed. None of the lesions enhance. No hemorrhage or mass. POSTERIOR FOSSA: No signal alteration. No hemorrhage. No edema, masses, or mass effect. Internal jessi tory canals, cerebellopontine angles, mastoids normal. No enhancing lesions. No abnormal enhancement post contrast. DIFFUSION IMAGING: Negative for acute or subacute infarction. ORBITS: No masses. Globes normal. PARANASAL SINUSES: No fluid levels. Mucosa normal. OTHER: No other significant finding. IMPRESSION: Quiescent white matter lesions. No evidence of active demyelination. EVIDENCE OF ACUTE STROKE: NO. TECHNICAL DOCUMENTATION: JOB ID: [id number] [employer] [place]- All Rights Reserved Reading location - IP/workstation name: [email or web address]
--- NOTE | 2019-01-01 11:36 | RADIOLOGY REPORT (SQ) ---
EXAM DESCRIPTION: MRI CERVICAL SPINE COMBO COMPLETED DATE/TIME: 01/01/2019 11:04 am REASON FOR STUDY: (G35)MULTIPLE SCLEROSIS G35 MULTIPLE SCLEROSIS COMPARISON: None. TECHNIQUE: Sagittal and Axial imaging includes T1, T2, STIR and gradient echo sequences. T1 post nathalie olinium sequences. CONTRAST TYPE AND DOSE: 20 mL Dotarem. RENAL FUNCTION: Not indicated. ACR Type II contrast agent associated with few, if any, unconfounded cases of NSF LIMITATIONS: Patient movement. FINDINGS: ALIGNMENT: Reversal of the lordotic curve. VERTEBRAE: Intact. BONE MARROW: Normal. No marrow replacement or reactive changes. DISCS: Desiccation multiple levels. HARDWARE: None in the spine. CORD AND BASE OF BRAIN: Normal in size and signal intensity. SOFT TISSUES: No soft tissue masses. C1-C2: No significant spinal stenosis. C2-C3: No significant spinal stenosis or exit foraminal stenosis. C3-C4: Mild spinal stenosis due to disc osteophyte complex. Severe neural foraminal narrowing. Disc contacts the exiting left C4 nerve root in the neural foramen. C4-C5: Mild spinal stenosis. Moderate neural foraminal narrowing bilaterally. C5-C6: Mild spinal stenosis. Severe neural foraminal narrowing bilaterally. C6-C7: Mild spinal stenosis. Moderate right and severe left neural foraminal narrowing. C7-T1: Disc bulge. Minimal narrowing of the spinal canal. UPPER THORACIC: Incompletely imaged. No significant spinal stenosis or exit foraminal stenosis. ENHANCEMENT: No abnormal enhancement. OTHER: No other significant finding. IMPRESSION: 1. Limitations due to motion. 2. No evidence of demyelinating disease. 3. Mild spinal stenosis at multiple levels. Varying degrees of neural foraminal stenosis. COMMENT: None. TECHNICAL DOCUMENTATION: JOB ID: [id number]- All Rights Reserved Reading location - IP/workstation name: [email or web address]
== END ==
LOC: RAD 08:25
PROVIDERS: ATTEND Specialist
DX: G35 Multiple sclerosis (principal)
CPT/HCPCS: 70553; 72156; A9576; A9270

== ENCOUNTER 2019-02-10 13:44 | Inpatient (IN) | payer MEDICARE, MEDICAID ==
[~2019-02-10 13:44] MED LIST changes: -DIAZEPAM 5 MG TABLET ONE; +SUCCINYLCHOLINE CHLORIDE INJ 200 MG/10 ML VIAL ONE
[2019-02-10] MEDS ORDERED: NALOXONE HCL INJ/PF 0.4 MG/1 ML SDV IV ONE ×2 (14:43→14:53)
[2019-02-10 15:12] LABS: ACETAMINOPHEN < 10 ug/mL (10-30); ALCOHOL < 10 mg/dL (NONE DETECTED); SALICYLATE < 1.0 mg/dL (2.0-20.0)
[2019-02-10 15:29] LABS: ABSOLUTE EOSINOPHILS # (AUTO) 0.3 10^3/uL (0.0-0.6); ABSOLUTE LYMPHOCYTES (AUTO) 1.5 10^3/uL (0.5-4.7); ABSOLUTE MONOCYTES (AUTO) 0.5 10^3/uL (0.1-1.4); ABSOLUTE NEUT (AUTO) 3.9 10^3/uL (1.7-8.2); BASOPHILS % (AUTO) 0.4 % (0-2); EOSINOPHILS % (AUTO) 4.2 % (0-6); HEMATOCRIT 35.7 % (37.9-51.0); HEMOGLOBIN 12.2 g/dL (13.5-17.0); LYMPHOCYTES % (AUTO) 24.1 % (13-45); MEAN CORPUSCULAR HEMOGLOBIN 25.3 pg (27.0-33.4); MEAN CORPUSCULAR VOLUME 75 fl (80-97); MONOCYTES % (AUTO) 7.8 % (3-13); PLATELET COUNT 295 10^3/uL (150-450); RED BLOOD COUNT 4.79 10^6/uL (4.35-5.55); RED CELL DISTRIBUTION WIDTH 22.6 % (11.5-14.0); SEGMENTED NEUTROPHILS % (AUTO) 63.5 % (42-78); TOTAL CELLS COUNTED % (AUTO) 100 %; WHITE BLOOD COUNT 6.1 10^3/uL (4.0-10.5)
--- NOTE | 2019-02-10 15:34 | RADIOLOGY REPORT (SQ) ---
EXAM DESCRIPTION: CHEST SINGLE VIEW COMPLETED DATE/TIME: 02/10/2019 3:23 pm REASON FOR STUDY: depressed mental status COMPARISON: None. EXAM PARAMETERS: NUMBER OF VIEWS: One view. TECHNIQUE: Single frontal radiographic view of the chest acquired. RADIATION DOSE: NA LIMITATIONS: None. FINDINGS: LUNGS AND PLEURA: Low inspiratory lung volumes without a superimposed consolidation, pleur al effusion or pneumothorax. MEDIASTINUM AND HILAR STRUCTURES: No mediastinal or hilar contour abnormality. HEART AND VASCULAR STRUCTURES: The cardiac silhouette and pulmonary vasculature are within normal carrera its given the low inspiratory lung volumes. BONES: No acute findings. HARDWARE: None in the chest. OTHER: No other finding. IMPRESSION: Low inspiratory lung volumes without a superimposed acute cardiopulmonary process. TECHNICAL DOCUMENTATION: JOB ID: [id number] [employer]- All Rights Reserved Reading location - IP/workstation name: [email or web address]
[2019-02-10 15:39] LABS: VENOUS BLOOD BASE EXCESS -3.9 mmol/L; VENOUS BLOOD HCO3 20.5 mmol/L (20-32); VENOUS BLOOD PCO2 35.2 mmHg (35-63); VENOUS BLOOD PH 7.38 (7.30-7.42)
--- NOTE | 2019-02-10 16:02 | ER Document Report ---
ED General - General Chief Complaint: Unresponsive Stated Complaint: UNRESPONSIVE Time Seen by Provider: 02/10/19 15:26 Primary Care Provider: KASSANDRA CARABALLO MD [Primary Care Provider] - Follow up as needed Mode of Arrival: Medic Information source: Emergency Med Personnel - History from paramedics reports that patient was sent was called for the residents and girlfriend was at the residence at the time and told paramedics that patient has been unresponsive today. Girlfriend believes the patient has taken baclofen recently with a new prescription. Patient has a history of multiple sclerosis. History is sketchy inasmuch as girlfriend could not tell any other information. 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 Cannot obtain history due to: Altered mental status, Other - Obtunded but has purposeful response to painful stimuli TRAVEL OUTSIDE OF THE [place] IN LAST 30 DAYS: No - HPI Onset: Other - Today Associated symptoms: Slow to respond Exacerbated by: Other - Shallow breathing Recently seen / treated by doctor: Yes - Yes patient has a new prescription for baclofen with only 4 tablets missing - Related Data Allergies/Adverse Reactions: aripiprazole [From [facility]] Adverse Reaction (Severe, Verified 11/18/18 01:15) "uncontrollable muscle tremors" Past Medical History - General Cannot obtain history due to: Altered mental status - Social History Smoking Status: Unknown if Ever Smoked Lives with: Other - Lives with girlfriend Family History: Reviewed & Not Pertinent, CAD, Hypertension, Other - ulcers father and sister Patient has suicidal ideation: No - unable to assess Patient has homicidal ideation: No - unable to assess - Medical History Medical History: Other - History of multiple sclerosis - Past Medical History Cardiac Medical History: Reports: Hx Hypertension Denies: Hx Coronary Artery Disease, Hx Heart Attack, Hx Heart Murmur Pulmonary Medical History: Denies: Hx Asthma, Hx Bronchitis, Hx COPD, Hx Pneumonia Neurological Medical History: Reports: Other - History of multiple sclerosis. Denies: Hx Cerebrovascular Accident, Hx Seizures, Hx Parkinson's Disease Endocrine Medical History: Reports: Hx Diabetes Mellitus Type 2 - Since gastric bypass has been able to stop all medications Renal/ Medical History: Reports: Hx Kidney Stones. Denies: Hx Peritoneal Dialysis GI Medical History: Reports: Hx Gastroesophageal Reflux Disease, Hx Ulcer - 4x. Denies: Hx Pancreatitis Musculoskeletal Medical History: Reports Hx Arthritis, Denies Hx Systemic Lupus Erythematosus Skin Medical History: Reports Hx MRSA Psychiatric Medical History: Reports: Hx Bipolar Disorder, Hx Depression Traumatic Medical History: Reports: Hx Fractures - RT ankle 2010 Infectious Medical History: Past Surgical History: Reports: Hx Abdominal Surgery - Repair of complications from gastric bypass, Hx Appendectomy - 1975, Hx Bowel Surgery - bowel perforation 09/26/2015, May 2016, Hx Gastric Bypass Surgery - 02/19/13, Hx Orthopedic Surgery - Right below-knee amputation, Hx Tonsillectomy - 1978 - Immunizations Immunizations up to date: Yes Hx Diphtheria, Pertussis, Tetanus Vaccination: Yes Hx Pneumococcal Vaccination: 03/03/11 Review of Systems - Review of Systems -: Yes ROS unobtainable due to patient's medical condition Physical Exam - Vital signs Vitals: Resp Pulse Ox 17 97 02/10/19 13:54 02/10/19 13:54 Interpretation: Normal, Other - Shallow respirations - General General appearance: Appears well, Alert, Lethargic, Other - Responds to painful stimulus In distress: Moderate - HEENT Head: Normocephalic, Atraumatic Eyes: Normal Extraocular movements intact: Yes Pupils: PERRL - Patient has a blank stare while at rest. Pupils are equal and round and reactive to light. Unable to test extraocular muscle movements. Unable to test visual chiu. Sinus: Normal Nasal: Normal Mouth/Lips: Other Mucous membranes: Dry Neck: Normal - Respiratory Respiratory status: No respiratory distress, Depressed respirations Chest status: Nontender Breath sounds: Normal Chest palpation: Normal - Cardiovascular Rhythm: Regular Heart sounds: Normal auscultation Murmur: No Normal capillary refill: Yes - Abdominal Inspection: Normal Distension: No distension Bowel sounds: Normal Tenderness: Nontender Organomegaly: No organomegaly - Extremities General upper extremity: Normal inspection, Nontender, Normal color, Normal ROM, Normal temperature General lower extremity: Normal inspection, Nontender, Normal color, Normal ROM, Normal temperature, Normal weight bearing, Other - Right BKA. No: Lilly's sign - Neurological Cognition: Normal Orientation: AAOx4 Blanco Coma Scale Eye Opening: Spontaneous [place]zair Coma Scale Verbal: Oriented Blanco Coma Scale Motor: Obeys Commands - Blanco Coma Scale 8 Blanco Coma Scale Total: 15 Speech: Normal Motor strength normal: LUE, RUE, LLE, RLE Sensory: Normal Course - Re-evaluation Re-evalutation: 02/10/19 19:08 Patient remains unarousable except for painful noxious stimuli. Concern for airway compromise and hypoxia. Elected to intubate patient to protect airway. Patient was found to have benzodiazepines on board on the urine drug screen. Also patient is also taking baclofen. Patient's somnolent state is due to medications most likely. - Vital Signs Vital signs: Temp Pulse Resp BP Pulse Ox 96.5 F L 16 126/91 H 96 02/10/19 20:00 02/10/19 20:11 02/10/19 20:11 02/10/19 20:11 - Laboratory Result Diagrams: 02/10/19 14:09 02/10/19 14:09 Laboratory results interpreted by me: 02/10/19 02/10/19 02/10/19 14:09 14:09 14:09 Hgb 12.2 L Hct 35.7 L MCV 75 L MCH 25.3 L RDW 22.6 H Chloride 112 H Salicylates < 1.0 L Acetaminophen < 10 L - Diagnostic Test Radiology reviewed: Image reviewed, Reports reviewed Procedures - Intubation Orotracheal Time of Intubation: 18:55 Airway evaluation: Normal anatomy, Large tongue, Obese Mallampati Classification: Class 2 Medications: Etomidate, Succinylcholine Intubation method: Orotracheal Blade type: Landon Blade size: 4 ETT size: 7.5 ETT secured at: Lips - 23 Breath Sounds after Intubation: Equal End tidal CO2 confirmed: Yes Tidal volume: 500 FiO2: 50 Respirations: 16 PEEP: 5 Post Intubation Xray: Yes Intubation Complications: Oral-unsuccessful attempt - Initial attempt at the endotracheal intubation using an 8 ET tube was unsuccessful. Therefore reintubated patient with successfully with a 7.5 ET tube, Other Critical Care Note - Critical Care Note Total time excluding time spent on procedures (mins): 65 Discharge - Discharge Clinical Impression: Altered mental status, Respiratory failure Disposition: ADMITTED INPATIENT Admitting Provider: Hand Stoner [facility] Unit Admitted: ICU Referrals: KASSANDRA CARABALLO MD [Primary Care Provider] - Follow up as needed
[2019-02-10] MEDS ORDERED: NORMAL SALINE 500 ML with NALOXONE HCL 2 MG IV PRN ×2 (16:05)
[2019-02-10] MEDS ORDERED: NORMAL SALINE 1000 ML 1,000 ML IV ONE (16:24)
[2019-02-10] MEDS ORDERED: PIPERACILLIN/TAZOBACTAM 3.375 GM VIAL IV ONE (16:34)
[2019-02-10 16:57] LABS: ALBUMIN 3.6 g/dL (3.5-5.0); ALKALINE PHOSPHATASE 89 U/L (38-126); ANION GAP 9 (5-19); ASPARTATE AMINO TRANSFERASE 22 U/L (17-59); BILIRUBIN,DIRECT 0.3 mg/dL (0.0-0.4); BILIRUBIN,TOTAL 0.5 mg/dL (0.2-1.3); BLOOD UREA NITROGEN 7 mg/dL (7-20); CALCIUM 9.5 mg/dL (8.4-10.2); CARBON DIOXIDE 23 mmol/L (22-30); CHLORIDE 112 mmol/L (98-107); GLUCOSE 108 mg/dL (75-110); POTASSIUM 3.9 mmol/L (3.6-5.0); TOTAL PROTEIN 6.6 g/dL (6.3-8.2)
[2019-02-10 16:58] LABS: ALCOHOL < 10 mg/dL (NONE DETECTED)
--- NOTE | 2019-02-10 17:22 | RADIOLOGY REPORT (SQ) ---
EXAM DESCRIPTION: CT HEAD WITHOUT COMPLETED DATE/TIME: 02/10/2019 5:11 pm REASON FOR STUDY: altered mental status COMPARISON: MRI brain 01/01/[address] brain exams since 2006 TECHNIQUE: Axial images acquired through the brain without intravenous contrast. Images reviewed wi th bone, brain and subdural windows. Additional sagittal and coronal reconstructions were generated. Images stored on PACS. All CT scanners at this facility use dose modulation, iterative reconstruction, and/or weight based d osing when appropriate to reduce radiation dose to as low as reasonably achievable (ALARA). [facility]: Dose Right [facility]: CareDose [facility]: Dose Right [facility]: Teradose 4D [facility]: Smart Technologies RADIATION DOSE: CT Rad equipment meets quality standard of care and radiation dose reduction techniq ues were employed. CTDIvol: 55.2 mGy. DLP: 1194 mGy-cm. mGy. LIMITATIONS: Mild motion artifact FINDINGS: VENTRICLES: Normal size and contour. CEREBRUM: No masses. No hemorrhage. No midline shift. No evidence for acute infarction. Normal gra y/white matter differentiation. No areas of low density in the white matter. CEREBELLUM: No masses. No hemorrhage. No alteration of density. No evidence for acute infarction. EXTRAAXIAL SPACES: No fluid collections. No masses. ORBITS AND GLOBE: No intra- or extraconal masses. Normal contour of globe without masses. CALVARIUM: No fracture. PARANASAL SINUSES: No fluid or mucosal thickening. SOFT TISSUES: No mass or hematoma. OTHER: No other significant finding. IMPRESSION: No acute findings EVIDENCE OF ACUTE STROKE: NO. COMMENT: Quality ID # [id number]: Final reports with documentation of one or more dose reduction techniques (e.g., Automated exposure control, adjustment of the mA and/or kV according to patient size, use of iterative reconstruction technique) TECHNICAL DOCUMENTATION: JOB ID: [id number] [employer]- All Rights Reserved Reading location - IP/workstation name: [email or web address]
[2019-02-10 17:42] LABS: APPEARANCE,URINE CLEAR; BILIRUBIN,URINE NEGATIVE (NEGATIVE); COLOR,URINE YELLOW; GLUCOSE, URINE NEGATIVE (NEGATIVE); KETONES,URINE NEGATIVE (NEGATIVE); LEUKOCYTE ESTERASE,URINE NEGATIVE (NEGATIVE); NITRITE,URINE NEGATIVE (NEGATIVE); PROTEIN,URINE NEGATIVE (NEGATIVE); URINE SPECIFIC GRAVITY 1.008; UROBILINOGEN,URINE NEGATIVE mg/dL (<2.0)
--- NOTE | 2019-02-10 17:50 | EKG REPORT ---
SEVERITY:- NORMAL ECG - SINUS RHYTHM : Confirmed by: Cricket Pantoja MD 10-Feb-2019 17:49:13
[2019-02-10 17:52] LABS: URINE AMPHETAMINES SCREEN NEGATIVE; URINE BARBITURATES SCREEN NEGATIVE; URINE COCAINE SCREEN NEGATIVE; URINE MARIJUANA (THC) SCREEN NEGATIVE; URINE METHADONE SCREEN NEGATIVE; URINE PHENCYCLIDINE SCREEN NEGATIVE
[2019-02-10 18:11] LABS: URINE BENZODIAZEPINES SCREEN UNCONFIRMED POSITIVE
[2019-02-10] MEDS ORDERED: ETOMIDATE INJ/PF 20 MG/10 ML SDV IV ONE ×3 (18:31→18:47)
[2019-02-10] MEDS ORDERED: SUCCINYLCHOLINE CHLORIDE INJ 200 MG/10 ML VIAL IV ONE (18:48)
[2019-02-10] MEDS ORDERED: PROPOFOL 1,000 MG/100 ML INFUS..BTL IV PRN (19:01)
[2019-02-10] MEDS ORDERED: PROPOFOL INJ 200 MG/20 ML VIAL IV ONE (19:01)
--- NOTE | 2019-02-10 19:37 | RADIOLOGY REPORT (SQ) ---
EXAM DESCRIPTION: CHEST SINGLE VIEW COMPLETED DATE/TIME: 02/10/2019 7:22 pm REASON FOR STUDY: post intubation COMPARISON: Chest films 01/25/2018, 02/10/2019 EXAM PARAMETERS: NUMBER OF VIEWS: One view. TECHNIQUE: Single frontal radiographic view of the chest acquired. RADIATION DOSE: NA LIMITATIONS: Low lung volumes, AP portable film FINDINGS: LUNGS AND PLEURA: Diffuse patchy bilateral airspace disease edema versus pneumonia. No gross pleural effusion or pneumothorax. MEDIASTINUM AND HILAR STRUCTURES: No masses. Contour normal. HEART AND VASCULAR STRUCTURES: Borderline cardiac enlargement BONES: No acute findings. HARDWARE: Endotracheal tube tip midtrachea. Nasogastric tube tip and side port in the stomach. OTHER: No other significant finding. IMPRESSION: Low lung volumes. Minimal patchy bilateral airspace disease edema versus pneumonia. Endotracheal tube, nasogastric tube in good positioning. Borderline cardiomegaly TECHNICAL DOCUMENTATION: JOB ID: [id number] [employer]- All Rights Reserved Reading location - IP/workstation name: [email or web address]
[2019-02-10] MEDS ORDERED: PHARMACY COMMUNICATION ORDER MC NR (20:45)
[2019-02-10 21:38] LABS: ARTERIAL BLOOD BASE EXCESS -2.7 mmol/L; ARTERIAL BLOOD FIO2 40%; ARTERIAL BLOOD H2CO3 1.25 mmol/L (1.05-1.35); ARTERIAL BLOOD HCO3 22.7 mmol/L (20-24); ARTERIAL BLOOD O2 SATURATION 94.2 % (94-98); ARTERIAL BLOOD PCO2 41.5 mmHg (35-45); ARTERIAL BLOOD PH 7.36 (7.35-7.45); ARTERIAL BLOOD PO2 73.4 mmHg (80-100); ARTERIAL BLOOD TOTAL CO2 23.9 mmol/L (23-27)
[2019-02-10] MEDS ORDERED: DEXTROSE 40% GEL 15 GM TUBE PO PRN ×2 (23:41)
[2019-02-10] MEDS ORDERED: GLUCAGON,HUMAN RECOMB 1 MG INJ SUBCUT PRN (23:41)
[2019-02-10] MEDS ORDERED: DEXTROSE 50%-WATER 25 GM/50 ML DISP.SYRIN IV PRN ×2 (23:41)
--- NOTE | 2019-02-10 23:41 | CRITICAL CARE ADMISSION REPORT ---
HPI Date:: 02/10/19 Time:: 22:00 Reason for ICU Reason:: Altered mental status, intubated for airway protection HPI: 53-year-old gentleman with known diabetes and multiple sclerosis. Patient seems to have a complex medical history, however, limited documentation to confirm. What is known is that he had an admission in January 2018 for GERD, vomiting and that this admission was prolonged and complicated by a nosocomial pneumonia. There is also mention of gastric bypass surgery and he has an obvious history of a left BKA. Patient presented to the emergency room today with significant mental status changes and possible compromised airway. He reportedly began taking baclofen this previous Friday however, these details are unclear. He was intubated in the emergency room after second attempt and brief episode of desaturation. He was started on propofol and was then transferred to the intensive care unit for vent weaning and further evaluation of his mental status. He is currently being weaned off of propofol. History obtained from:: Medical record - Diagnosis/Plan (1) Altered mental status Qualifiers: Altered mental status type: transient alteration of awareness Qualified Code(s): R40.4 - Transient alteration of awareness Is this a current diagnosis for this admission?: Yes Plan: Head CT negative for acute event. No evidence of seizure activity. Patient is currently on a propofol drip. We will begin weaning propofol and closely assess his mental status. (2) Respiratory failure Qualifiers: Chronicity: acute Respiratory failure complication: unspecified whether with hypoxia or hypercapnia Qualified Code(s): J96.00 - Acute respiratory failure, unspecified whether with hypoxia or hypercapnia Is this a current diagnosis for this admission?: Yes Plan: Patient intubated initially in ED for airway protection. Continue current vent settings. We will wean ventilator as tolerated with the goal for extubation when patient begins to awaken from propofol drip. Given his difficult intubation, along with blood-tinged secretions, we will be very cautious when evaluating for extubation. CXR in a.m. to further evaluate for possible aspiration pneumonia. Past Medical History Cardiac Medical History: Reports: Hypertension Denies: Coronary Artery Disease, Myocardial Infarction, Heart Murmur Pulmonary Medical History: Reports: Pneumonia Denies: Asthma, Bronchitis, Chronic Obstructive Pulmonary Disease (COPD) Neurological Medical History: Reports: Multiple Sclerosis Denies: Seizures Endocrine Medical History: Reports: Diabetes Mellitus Type 2 - Since gastric bypass has been able to stop all medications Renal/ Medical History: Malignancy Medical History: Reports: None GI Medical History: Reports: Gastroesophageal Reflux Disease Musculoskeltal Medical History: Reports: Arthritis Psychiatric Medical History: Reports: Bipolar Disorder, Depression Hematology: Reports: Anemia Past Surgical History Past Surgical History: Reports: Appendectomy - 1975, Gastric Bypass Surgery - 02/19/13, Orthopedic Surgery - Right below-knee amputation, Tonsillectomy - 1978 Social/Family History - Social History Lives with: Other - Lives with girlfriend Smoking Status: Unknown if Ever Smoked Frequency of Alcohol Use: None Hx Recreational Drug Use: No - Unknown Drugs: None Hx Prescription Drug Abuse: No - Medication/Allergies Home Medications: Unobtainable 02/10/19 Allergies/Adverse Reactions: [facility] Adverse Reaction (Severe, Verified 11/18/18 01:15) "uncontrollable muscle tremors" Review of Systems ROS unobtainable: Due to endotracheal tube Physical Exam Vital Signs: Temp Pulse Resp BP Pulse Ox 97.6 F 18 123/88 H 97 02/10/19 21:12 02/10/19 21:21 02/10/19 21:21 02/10/19 21:21 Intake & Output 02/09/19 02/10/19 02/11/19 06:59 06:59 06:59 Intake Total 91 Output Total 980 Balance -889 Weight 102.5 kg Weight/Height Weight 102.5 kg General appearance: PRESENT: no acute distress Head exam: PRESENT: atraumatic Eye exam: PRESENT: PERRLA Ear exam: PRESENT: normal external ear exam Mouth exam: PRESENT: dry mucosa Neck exam: ABSENT: JVD, lymphadenopathy, thyromegaly Respiratory exam: PRESENT: symmetrical. ABSENT: crackles, rhonchi, wheezes Cardiovascular exam: PRESENT: RRR, +S1, +S2 Pulses: PRESENT: normal carotid pulses, normal femoral pulses Vascular exam: PRESENT: normal capillary refill GI/Abdominal exam: PRESENT: normal bowel sounds, soft Skin exam: PRESENT: intact, normal color, warm. ABSENT: petechiae, rash, skin tears Tubes/Lines: PRESENT: Endotracheal Tube Laboratory/Radiographs Laboratory Results: 02/10/19 14:09 02/10/19 14:09 02/10/19 02/10/19 02/10/19 14:09 14:09 15:25 WBC 6.1 RBC 4.79 Hgb 12.2 L Hct 35.7 L MCV 75 L MCH 25.3 L MCHC 34.0 RDW 22.6 H Plt Count 295 Seg Neutrophils % 63.5 Carbonic Acid HCO3/H2CO3 Ratio ABG pH ABG pCO2 ABG pO2 ABG HCO3 ABG O2 Saturation ABG Base Excess VBG pH 7.38 VBG pCO2 35.2 VBG HCO3 20.5 VBG Base Excess -3.9 FiO2 Sodium 144.1 Potassium 3.9 Chloride 112 H Carbon Dioxide 23 Anion Gap 9 BUN 7 Creatinine 0.82 Est GFR ( Amer) > 60 Glucose 108 Lactic Acid Calcium 9.5 Total Bilirubin 0.5 AST 22 Alkaline Phosphatase 89 Total Protein 6.6 Albumin 3.6 Urine Color Urine Appearance Urine pH Ur Specific [place] Urine Protein Urine Glucose (UA) Urine Ketones Urine Blood Urine Nitrite Ur Leukocyte Esterase Urine RBC (Auto) 02/10/19 02/10/19 02/10/19 17:00 17:30 21:10 WBC RBC Hgb Hct MCV MCH MCHC RDW Plt Count Seg Neutrophils % Carbonic Acid 1.25 HCO3/H2CO3 Ratio 18:1 ABG pH 7.36 ABG pCO2 41.5 ABG pO2 73.4 L ABG HCO3 22.7 ABG O2 Saturation 94.2 ABG Base Excess -2.7 VBG pH VBG pCO2 VBG HCO3 VBG Base Excess FiO2 40% Sodium Potassium Chloride Carbon Dioxide Anion Gap BUN Creatinine Est GFR ( Amer) Glucose Lactic Acid 0.7 Calcium Total Bilirubin AST Alkaline Phosphatase Total Protein Albumin Urine Color YELLOW Urine Appearance CLEAR Urine pH 6.0 Ur Specific [place] 1.008 Urine Protein NEGATIVE Urine Glucose (UA) NEGATIVE Urine Ketones NEGATIVE Urine Blood NEGATIVE Urine Nitrite NEGATIVE Ur Leukocyte Esterase NEGATIVE Urine RBC (Auto) 2 02/10/19 14:09 Troponin I < 0.012 Impressions: Head CT 02/10/19 16:33 IMPRESSION: No acute findings EVIDENCE OF ACUTE STROKE: NO. Chest X-Ray 02/10/19 19:02 IMPRESSION: Low lung volumes. Minimal patchy bilateral airspace disease edema versus pneumonia. Endotracheal tube, nasogastric tube in good positioning. Borderline cardiomegaly All labs, radiographs, diagnostic studies and EKGs were personally reviewed: Yes In addition, reports of radiographic and diagnostic studies were read: Yes Critical Time Critical Time (minutes): 75 -: The care of a critically ill patient is dynamic. This note represents a static moment in the admission process. orders and treatments may be given simultaneously and urgent, and time is not premium service representative of the treatment process. This patient requires Critical Care secondary to life threatening organ or limb dysfunction. Without the need for Critical Care services, the patient is at risk for increased mortality and morbidity.
--- NOTE | 2019-02-11 00:01 | RADIOLOGY REPORT (SQ) ---
EXAM DESCRIPTION: XR CHEST 1 VIEW COMPLETED DATE/TME: 02/10/2019 00:00 CLINICAL HISTORY: 53 years, Male, ng tube placement COMPARISON: 1211 chest x-ray at 7:20 PM NUMBER OF VIEWS: 2 TECHNIQUE: AP chest LIMITATIONS: None. FINDINGS: The heart size is stable. Endotracheal tube remains in place. Enteric tube with the tip extending into the stomach. No pneumothorax. Airspace opacity left lung base IMPRESSION: Tip of the enteric tube in the stomach. Other findings are stable copyright 2011 [employer]- All Rights Reserved
[2019-02-11] MEDS ORDERED: PROPOFOL 1,000 MG/100 ML INFUS..BTL IV PRN (00:07)
[2019-02-11] MEDS ORDERED: INFLUENZA QUAD (6MOS+) 2019-20 VAC 0.5 ML SYR IM ONE (00:18)
[2019-02-11] MEDS: DEXTROSE 5%-1/2 NORMAL SALINE 1,000 ML IV PRN ×2 (00:27→13:35)
[2019-02-11] MEDS ORDERED: FAMOTIDINE INJ/PF 20 MG/2 ML SDV IV ONE (00:30)
[2019-02-11] MEDS ORDERED: FENTANYL CITRATE INJ/PF 100 MCG/2 ML AMPUL ONE (02:35)
[2019-02-11] MEDS ORDERED: FENTANYL CITRATE INJ/PF 100 MCG/2 ML AMPUL IV ONE (03:01)
[2019-02-11] MEDS ORDERED: FENTANYL CITRATE/PF 600 MCG/60 ML BAG IV PRN (03:08)
[2019-02-11 04:07] LABS: HEMATOCRIT 37.4 % (37.9-51.0); HEMOGLOBIN 12.3 g/dL (13.5-17.0); MEAN CORPUSCULAR HGB CONC 32.9 g/dL (32.0-36.0); MEAN CORPUSCULAR VOLUME 76 fl (80-97); PLATELET COUNT 296 10^3/uL (150-450); RED BLOOD COUNT 4.94 10^6/uL (4.35-5.55); RED CELL DISTRIBUTION WIDTH 22.3 % (11.5-14.0); WHITE BLOOD COUNT 6.7 10^3/uL (4.0-10.5)
[2019-02-11 04:10] LABS: INTERNATIONAL RATION (INR) 1.05; PROTHROMBIN TIME 13.7 SEC (11.4-15.4)
[2019-02-11 04:11] LABS: PARTIAL THROMBOPLASTIN TIME 30.3 SEC (23.5-35.8)
[2019-02-11 04:21] LABS: ALBUMIN 3.7 g/dL (3.5-5.0); ALKALINE PHOSPHATASE 79 U/L (38-126); AMYLASE 105 U/L (30-110); ANION GAP 11 (5-19); ASPARTATE AMINO TRANSFERASE 25 U/L (17-59); BILIRUBIN,DIRECT 0.2 mg/dL (0.0-0.4); BILIRUBIN,TOTAL 0.4 mg/dL (0.2-1.3); BLOOD UREA NITROGEN 7 mg/dL (7-20); CALCIUM 9.5 mg/dL (8.4-10.2); CARBON DIOXIDE 23 mmol/L (22-30); CHLORIDE 112 mmol/L (98-107); GLUCOSE 124 mg/dL (75-110); PHOSPHORUS 3.9 mg/dL (2.5-4.5); POTASSIUM 3.7 mmol/L (3.6-5.0); TOTAL PROTEIN 6.8 g/dL (6.3-8.2); TRIGLYCERIDES 219 mg/dL (<150)
[2019-02-11 04:29] LABS: VLDL CHOLESTEROL 43.8 mg/dL (10-31)
[2019-02-11 04:32] LABS: DIRECT LDL 80 mg/dL (<100)
[2019-02-11 04:37] LABS: CHOLESTEROL 120.46 mg/dL (0-200)
[2019-02-11] MEDS: HEPARIN SOD (PORCINE) 5,000 UNIT/ML 1 ML VIAL SUBCUT SCH ×3 (05:40→21:15)
--- NOTE | 2019-02-11 08:18 | RADIOLOGY REPORT (SQ) ---
EXAM DESCRIPTION: CHEST SINGLE VIEW COMPLETED DATE/TIME: 02/11/2019 7:12 am REASON FOR STUDY: Respiratory Failure COMPARISON: 02/10/2019. EXAM PARAMETERS: NUMBER OF VIEWS: One view. TECHNIQUE: Single frontal radiographic view of the chest acquired. RADIATION DOSE: NA LIMITATIONS: None. FINDINGS: LUNGS AND PLEURA: No consolidations, masses or pneumothorax. No pleural effusion. MEDIASTINUM AND HILAR STRUCTURES: No masses. Contour normal. HEART AND VASCULAR STRUCTURES: Heart upper limits of normal in size. Mild vascular prominence. BONES: No acute findings. HARDWARE: Stable endotracheal tube and nasogastric tube. OTHER: No other significant finding. IMPRESSION: NO CHANGE IN APPEARANCE OF THE CHEST. TECHNICAL DOCUMENTATION: JOB ID: [id number] [employer]- All Rights Reserved Reading location - IP/workstation name: [email or web address]
[2019-02-11] MEDS ORDERED: CYANOCOBALAMIN (VITAMIN B-12) INJ 1000 MCG/1 ML VIAL IM ONE (09:30)
[2019-02-11] MEDS ORDERED: NORMAL SALINE 1000 ML 1,000 ML with POTASSIUM CHLORIDE 20 MEQ, MAGNESIUM SULFATE 8 MEQ,... IV ONE ×6 (10:00)
[2019-02-11] MEDS: FAMOTIDINE INJ/PF 20 MG/2 ML SDV IV SCH ×2 (10:10→21:15)
[2019-02-11] MEDS ORDERED: LORAZEPAM INJ 2 MG/1 ML VIAL IV ONE ×2 (11:30)
[2019-02-11] MEDS ORDERED: DEXMEDETOMIDINE IN 0.9 % NACL 400 MCG/100 ML RTUPB IV PRN (11:31)
--- NOTE | 2019-02-11 13:53 | PDOC CRITICAL CARE PROG REPORT ---
General Date:: 02/11/19 ICU Day:: 2 Reason for ICU Addmission:: Altered mental status, intubated for airway protection - Medications: Medications reviewed and adjusted accordingly: Yes Physical Exam Vital Signs: Temp Pulse Resp BP Pulse Ox 98.8 F 92 17 112/75 97 02/11/19 12:00 02/11/19 12:00 02/11/19 12:00 02/11/19 12:00 02/11/19 12:00 Intake & Output 02/10/19 02/11/19 02/12/19 06:59 06:59 06:59 Intake Total 236 985 Output Total 1890 105 Balance -1654 880 Weight 108.2 kg 108.2 kg Weight/Height Weight 108.2 kg Height 6 ft General appearance: PRESENT: no acute distress, well-developed, well-nourished Head exam: PRESENT: atraumatic, normocephalic Eye exam: PRESENT: conjunctiva pink, EOMI, PERRLA. ABSENT: scleral icterus Ear exam: PRESENT: normal external ear exam Mouth exam: PRESENT: moist, tongue midline Neck exam: ABSENT: carotid bruit, JVD, lymphadenopathy, thyromegaly Respiratory exam: PRESENT: clear to auscultation jorge. ABSENT: rales, rhonchi, wheezes Cardiovascular exam: PRESENT: RRR. ABSENT: diastolic murmur, rubs, systolic murmur Pulses: PRESENT: normal dorsalis pedis pul Vascular exam: PRESENT: normal capillary refill GI/Abdominal exam: PRESENT: normal bowel sounds, soft. ABSENT: distended, guarding, mass, organolmegaly, rebound, tenderness Rectal exam: PRESENT: deferred Extremities exam: PRESENT: full ROM. ABSENT: calf tenderness, clubbing, pedal edema Neurological exam: PRESENT: alert, awake, oriented to person, oriented to place, oriented to time, oriented to situation, CN II-XII grossly intact. ABSENT: motor sensory deficit Psychiatric exam: PRESENT: appropriate affect, normal mood. ABSENT: homicidal ideation, suicidal ideation Skin exam: PRESENT: dry, intact, warm. ABSENT: cyanosis, rash Laboratory/Radiographs Laboratory Results: 02/11/19 03:48 02/11/19 03:48 02/10/19 02/10/19 02/10/19 14:09 14:09 15:25 WBC 6.1 RBC 4.79 Hgb 12.2 L Hct 35.7 L MCV 75 L MCH 25.3 L MCHC 34.0 RDW 22.6 H Plt Count 295 Seg Neutrophils % 63.5 Carbonic Acid HCO3/H2CO3 Ratio ABG pH ABG pCO2 ABG pO2 ABG HCO3 ABG O2 Saturation ABG Base Excess VBG pH 7.38 VBG pCO2 35.2 VBG HCO3 20.5 VBG Base Excess -3.9 FiO2 Sodium 144.1 Potassium 3.9 Chloride 112 H Carbon Dioxide 23 Anion Gap 9 BUN 7 Creatinine 0.82 Est GFR ( Amer) > 60 Glucose 108 Lactic Acid Calcium 9.5 Phosphorus Magnesium Total Bilirubin 0.5 AST 22 Alkaline Phosphatase 89 Ammonia Total Protein 6.6 Albumin 3.6 Triglycerides Cholesterol LDL Cholesterol Direct VLDL Cholesterol HDL Cholesterol Amylase Lipase Free T4 Urine Color Urine Appearance Urine pH Ur Specific [place] Urine Protein Urine Glucose (UA) Urine Ketones Urine Blood Urine Nitrite Ur Leukocyte Esterase Urine RBC (Auto) 02/10/19 02/10/19 02/10/19 17:00 17:30 21:10 WBC RBC Hgb Hct MCV MCH MCHC RDW Plt Count Seg Neutrophils % Carbonic Acid 1.25 HCO3/H2CO3 Ratio 18:1 ABG pH 7.36 ABG pCO2 41.5 ABG pO2 73.4 L ABG HCO3 22.7 ABG O2 Saturation 94.2 ABG Base Excess -2.7 VBG pH VBG pCO2 VBG HCO3 VBG Base Excess FiO2 40% Sodium Potassium Chloride Carbon Dioxide Anion Gap BUN Creatinine Est GFR ( Amer) Glucose Lactic Acid 0.7 Calcium Phosphorus Magnesium Total Bilirubin AST Alkaline Phosphatase Ammonia Total Protein Albumin Triglycerides Cholesterol LDL Cholesterol Direct VLDL Cholesterol HDL Cholesterol Amylase Lipase Free T4 Urine Color YELLOW Urine Appearance CLEAR Urine pH 6.0 Ur Specific [place] 1.008 Urine Protein NEGATIVE Urine Glucose (UA) NEGATIVE Urine Ketones NEGATIVE Urine Blood NEGATIVE Urine Nitrite NEGATIVE Ur Leukocyte Esterase NEGATIVE Urine RBC (Auto) 2 02/10/19 02/11/19 02/11/19 22:45 03:48 03:48 WBC 6.7 RBC 4.94 Hgb 12.3 L Hct 37.4 L MCV 76 L MCH 25.0 L MCHC 32.9 RDW 22.3 H Plt Count 296 Seg Neutrophils % Carbonic Acid HCO3/H2CO3 Ratio ABG pH ABG pCO2 ABG pO2 ABG HCO3 ABG O2 Saturation ABG Base Excess VBG pH VBG pCO2 VBG HCO3 VBG Base Excess FiO2 Sodium 145.9 H Potassium 3.7 Chloride 112 H Carbon Dioxide 23 Anion Gap 11 BUN 7 Creatinine 0.78 Est GFR ( Amer) > 60 Glucose 124 H Lactic Acid Calcium 9.5 Phosphorus 3.9 Magnesium 2.0 Total Bilirubin 0.4 AST 25 Alkaline Phosphatase 79 Ammonia 13.0 Total Protein 6.8 Albumin 3.7 Triglycerides 219 H Cholesterol 120.46 LDL Cholesterol Direct 80 VLDL Cholesterol 43.8 H HDL Cholesterol 21 L Amylase 105 Lipase 35.5 Free T4 Urine Color Urine Appearance Urine pH Ur Specific [place] Urine Protein Urine Glucose (UA) Urine Ketones Urine Blood Urine Nitrite Ur Leukocyte Esterase Urine RBC (Auto) 02/11/19 03:48 WBC RBC Hgb Hct MCV MCH MCHC RDW Plt Count Seg Neutrophils % Carbonic Acid HCO3/H2CO3 Ratio ABG pH ABG pCO2 ABG pO2 ABG HCO3 ABG O2 Saturation ABG Base Excess VBG pH VBG pCO2 VBG HCO3 VBG Base Excess FiO2 Sodium Potassium Chloride Carbon Dioxide Anion Gap BUN Creatinine Est GFR ( Amer) Glucose Lactic Acid Calcium Phosphorus Magnesium Total Bilirubin AST Alkaline Phosphatase Ammonia Total Protein Albumin Triglycerides Cholesterol LDL Cholesterol Direct VLDL Cholesterol HDL Cholesterol Amylase Lipase Free T4 0.86 Urine Color Urine Appearance Urine pH Ur Specific [place] Urine Protein Urine Glucose (UA) Urine Ketones Urine Blood Urine Nitrite Ur Leukocyte Esterase Urine RBC (Auto) 02/10/19 02/11/19 14:09 03:48 Troponin I < 0.012 < 0.012 Impressions: Head CT 02/10/19 16:33 IMPRESSION: No acute findings EVIDENCE OF ACUTE STROKE: NO. Chest X-Ray 02/11/19 06:00 IMPRESSION: NO CHANGE IN APPEARANCE OF THE CHEST. All labs, radiographs, diagnostic studies and EKGs were personally reviewed: Yes In addition, reports of radiographic and diagnostic studies were read: Yes Assessment and Plan - Diagnosis (1) Altered mental status Qualifiers: Altered mental status type: transient alteration of awareness Qualified Code(s): R40.4 - Transient alteration of awareness Is this a current diagnosis for this admission?: Yes Plan: History of gastric bypass and polypharmacy use. Ari lighten sedation this mornign and switch to precedex for his agitation. Reassess pending transition to precedex. (2) Respiratory failure Qualifiers: Chronicity: acute Respiratory failure complication: unspecified whether with hypoxia or hypercapnia Qualified Code(s): J96.00 - Acute respiratory failure, unspecified whether with hypoxia or hypercapnia Is this a current diagnosis for this admission?: Yes Plan: Respiratory failure thought to be secondary to medication use. As sedation lightens this morning will plan for SBT and likely extuabation later today. Critical Time Critical Time (minutes): 60 Level of Care: ICU Anticipated discharge: Home Within: within 48 hours, within 72 hours -: 1. The care of a critical patient is a dynamic process. This note is a territory sales representative synopsis but static in nature. The timeframe for treatments given in order is not necessary the actual time these treatments may have been done. 2. This patient requires critical care secondary to ongoing requirements for therapy not offered or safe outside the critical care environment. Transfer to a lower level of care with altered life or limb morbidity and mortality. 3. Multidisciplinary rounds completed. 4. ABCDE bundle addressed.
[2019-02-12] MEDS ORDERED: ACETAMINOPHEN 325 MG TABLET PO PRN ×2 (00:44→00:58)
[2019-02-12] MEDS ORDERED: QUETIAPINE FUMARATE 100 MG TABLET PO ONE (01:10)
[2019-02-12] MEDS: DEXTROSE 5%-1/2 NORMAL SALINE 1,000 ML IV PRN (01:35)
[2019-02-12] MEDS: HEPARIN SOD (PORCINE) 5,000 UNIT/ML 1 ML VIAL SUBCUT SCH ×3 (05:15→21:46)
[2019-02-12] MEDS: GABAPENTIN 300 MG CAPSULE PO SCH ×3 (05:15→21:46)
--- NOTE | 2019-02-12 08:16 | PDOC CRITICAL CARE PROG REPORT ---
General Date:: 02/12/19 ICU Day:: 3 Resuscitation Status: Full Code Reason for ICU Addmission:: Altered mental status, intubated for airway protection - Medications: Medications reviewed and adjusted accordingly: Yes Physical Exam Vital Signs: Temp Pulse Resp BP Pulse Ox 99.1 F 85 18 121/85 97 02/11/19 16:00 02/11/19 20:33 02/11/19 18:00 02/11/19 18:00 02/12/19 02:26 Intake & Output 02/11/19 02/12/19 02/13/19 06:59 06:59 06:59 Intake Total 236 1985 Output Total 1890 640 Balance -1654 1345 Weight 108.2 kg 109 kg Weight/Height Weight 109 kg Height 6 ft General appearance: PRESENT: no acute distress, well-developed, well-nourished Head exam: PRESENT: atraumatic, normocephalic Eye exam: PRESENT: conjunctiva pink, EOMI, PERRLA. ABSENT: scleral icterus Ear exam: PRESENT: normal external ear exam Mouth exam: PRESENT: moist, tongue midline Neck exam: ABSENT: carotid bruit, JVD, lymphadenopathy, thyromegaly Respiratory exam: PRESENT: clear to auscultation jorge. ABSENT: rales, rhonchi, wheezes Cardiovascular exam: PRESENT: RRR. ABSENT: diastolic murmur, rubs, systolic murmur Pulses: PRESENT: normal dorsalis pedis pul Vascular exam: PRESENT: normal capillary refill GI/Abdominal exam: PRESENT: normal bowel sounds, soft. ABSENT: distended, guarding, mass, organolmegaly, rebound, tenderness Rectal exam: PRESENT: deferred Extremities exam: PRESENT: full ROM. ABSENT: calf tenderness, clubbing, pedal edema Neurological exam: PRESENT: alert, awake, oriented to person, oriented to place, oriented to time, oriented to situation, CN II-XII grossly intact. ABSENT: motor sensory deficit Psychiatric exam: PRESENT: appropriate affect, normal mood. ABSENT: homicidal ideation, suicidal ideation Skin exam: PRESENT: dry, intact, warm. ABSENT: cyanosis, rash Tubes/Lines: PRESENT: Other - jefferson catheter Laboratory/Radiographs Laboratory Results: 02/11/19 03:48 02/11/19 03:48 02/10/19 02/11/19 14:09 03:48 Troponin I < 0.012 < 0.012 Impressions: Head CT 02/10/19 16:33 IMPRESSION: No acute findings EVIDENCE OF ACUTE STROKE: NO. Chest X-Ray 02/11/19 06:00 IMPRESSION: NO CHANGE IN APPEARANCE OF THE CHEST. All labs, radiographs, diagnostic studies and EKGs were personally reviewed: Yes In addition, reports of radiographic and diagnostic studies were read: Yes Assessment and Plan - Diagnosis (1) Altered mental status Qualifiers: Altered mental status type: transient alteration of awareness Qualified Co de(s): R40.4 - Transient alteration of awareness Is this a current diagnosis for this admission?: Yes Plan: Awake and alert to person/place/time but has no memory of events preceding admission. Per patient, he has been seeing speech therapy/cognitive therapy to learn memory techniques because he has had bad memory issues for a while. Will defer to primary care (2) Respiratory failure Qualifiers: Chronicity: acute Respiratory failure complication: unspecified whether with hypoxia or hypercapnia Qualified Code(s): J96.00 - Acute respiratory failure, unspecified whether with hypoxia or hypercapnia Is this a current diagnosis for this admission?: Yes Plan: Resolved. Critical Time Critical Time (minutes): 30 Level of Care: MEDICAL Anticipated discharge: Home Within: within 48 hours -: 1. The care of a critical patient is a dynamic process. This note is a small business representative synopsis but static in nature. The timeframe for treatments given in order is not necessary the actual time these treatments may have been done. 2. This patient requires critical care secondary to ongoing requirements for therapy not offered or safe outside the critical care environment. Transfer to a lower level of care with altered life or limb morbidity and mortality. 3. Multidisciplinary rounds completed. 4. ABCDE bundle addressed.
[2019-02-12] MEDS ORDERED: KETOROLAC TROMETHAMINE INJ/PF 30 MG/1 ML SDV IV ONE (08:55)
[2019-02-12] MEDS: FAMOTIDINE 20 MG TABLET PO SCH ×2 (09:11→21:46)
[2019-02-12] MEDS ORDERED: BUTALB/ACETAMINOPHEN/CAFFEINE 1 TAB EACH PO ONE (13:32)
[2019-02-12] MEDS ORDERED: ONDANSETRON 4 MG TAB.RAPDIS PO PRN (14:25)
[2019-02-13] MEDS: GABAPENTIN 300 MG CAPSULE PO SCH ×3 (06:43→22:02)
[2019-02-13] MEDS: HEPARIN SOD (PORCINE) 5,000 UNIT/ML 1 ML VIAL SUBCUT SCH ×3 (06:44→22:03)
[2019-02-13] MEDS: FAMOTIDINE 20 MG TABLET PO SCH ×2 (10:25→22:03)
[2019-02-13] MEDS ORDERED: KETOROLAC TROMETHAMINE INJ/PF 30 MG/1 ML SDV IV ONE (17:00)
[2019-02-13] MEDS ORDERED: PROMETHAZINE HCL 25 MG TABLET PO PRN (18:15)
--- NOTE | 2019-02-13 18:22 | PDOC PROGRESS REPORT ---
Subjective Progress Note for:: 02/13/19 Subjective:: Patient feels well today. Only complains of headache. Daughter states that his multiple sclerosis manifest as paresthesias in the arms and his left leg. Currently experiencing the symptoms right now. Denies taking any drugs or alcohol at the [employer] that he was at when he was found unresponsive. Admits to taking Robaxin 500 mg and some baclofen together that night and thinks that may have caused his symptoms. Reason For Visit: MENTAL STATUS CHANGES WITH RESPIRATORY COMPROMISE Physical Exam Vital Signs: Temp Pulse Resp BP Pulse Ox 98.0 F 71 20 147/86 H 99 02/13/19 12:01 02/13/19 12:01 02/13/19 12:01 02/13/19 12:01 02/13/19 12:01 Intake & Output 02/12/19 02/13/19 02/14/19 06:59 06:59 06:59 Intake Total 1985 3720 600 Output Total 640 4170 1375 Balance 1345 -450 -775 Weight 109 kg 106.1 kg 106.1 kg General appearance: PRESENT: no acute distress, cooperative Neck exam: ABSENT: JVD Respiratory exam: PRESENT: clear to auscultation jorge, unlabored. ABSENT: tachypnea, wheezes Cardiovascular exam: PRESENT: +S1, +S2 GI/Abdominal exam: PRESENT: normal bowel sounds, soft. ABSENT: rebound, rigid, tenderness Neurological exam: PRESENT: alert, awake, oriented to person, oriented to place, oriented to time Results Laboratory Results: 02/11/19 03:48 02/11/19 03:48 02/10/19 02/11/19 14:09 03:48 Troponin I < 0.012 < 0.012 Impressions: Head CT 02/10/19 16:33 IMPRESSION: No acute findings EVIDENCE OF ACUTE STROKE: NO. Chest X-Ray 02/11/19 06:00 IMPRESSION: NO CHANGE IN APPEARANCE OF THE CHEST. Assessment and Plan - Diagnosis (1) Acute respiratory failure Qualifiers: Respiratory failure complication: hypoxia Qualified Code(s): J96.01 - Acute respiratory failure with hypoxia Is this a current diagnosis for this admission?: Yes Plan: My understanding is that patient was intubated for airway protection secondary to his encephalopathy. Subsequently extubated once encephalopathy resolved. Patient is currently not hypoxic and not requiring any oxygen supplementation. Chest imaging has not found any evidence of significant infiltrates. I will ask respiratory therapist to check vital capacity to ensure that this is not a component of his MS. (2) Encephalopathy acute Is this a current diagnosis for this admission?: Yes Plan: Not fully certain that patient taking baclofen and Robaxin together could have led to his obtundation. Toxicology on admission was only positive for benzodiazepines and patient takes diazepam at home. Alcohol level was negative on admission. Head CT was also negative for any acute processes. The working diagnosis same to the pain that patient may have become altered due to 1 of his home medications possibly baclofen that he was recently started on or/and diazepam which is listed as his home medication. As of now patient's encephalopathy seems to have fully resolved. (3) Multiple sclerosis Is this a current diagnosis for this admission?: Yes Plan: Outpatient follow-up with PCP and neurologist. - Time Time Spent with patient: 15-24 minutes
[2019-02-13] MEDS: TOPIRAMATE 25 MG TABLET PO SCH (22:03)
[2019-02-13] MEDS: TRAMADOL HCL 50 MG TABLET PO PRN (22:08)
[2019-02-14] MEDS: GABAPENTIN 300 MG CAPSULE PO SCH (06:11)
[2019-02-14] MEDS: HEPARIN SOD (PORCINE) 5,000 UNIT/ML 1 ML VIAL SUBCUT SCH (06:12)
[2019-02-14] MEDS ORDERED: MULTIVITAMIN TABLET PO SCH (10:00)
[2019-02-14] MEDS ORDERED: ESCITALOPRAM OXALATE 10 MG TABLET PO SCH (10:00)
[2019-02-14] MEDS ORDERED: OLANZAPINE 5 MG TABLET PO SCH ×2 (10:00→22:00)
[2019-02-14] MEDS: TOPIRAMATE 25 MG TABLET PO SCH (10:48)
[2019-02-14] MEDS: FAMOTIDINE 20 MG TABLET PO SCH (10:49)
[2019-02-14] MEDS: TRAMADOL HCL 50 MG TABLET PO PRN (10:51)
--- NOTE | 2019-02-14 13:39 | PDOC DISCHARGE SUMMARY ---
Impression - Admit/DC Date/PCP Admission Date/Primary Care Provider: 02/10/19 20:46 KASSANDRA CARABALLO MD Discharge Date: 02/14/19 - Discharge Diagnosis (1) Acute respiratory failure Is this a current diagnosis for this admission?: Yes (2) Encephalopathy acute Is this a current diagnosis for this admission?: Yes (3) Multiple sclerosis Is this a current diagnosis for this admission?: Yes - Additional Information Resuscitation Status: Full Code Discharge Diet: Cardiac Discharge Activity: Activity As Tolerated, No Driving Referrals: KASSANDRA CARABALLO MD [Primary Care Provider] - (1 week) Home Medications: Gabapentin [Neurontin 300 mg Capsule] 300 mg PO Q8 02/11/19 Olanzapine [Zyprexa 5 mg Tablet] 5 mg PO DAILY 02/11/19 Ranitidine HCl [Zantac] 150 mg PO DAILY 02/11/19 Rivaroxaban [Xarelto] 20 mg PO DAILY 02/11/19 Topiramate [Topamax] 50 mg PO Q12 02/11/19 Diazepam 10 mg PO Q12HP PRN 02/12/19 Escitalopram Oxalate [Lexapro 10 mg Tablet] 20 mg PO DAILY 02/12/19 Multivitamin [Tab-A-Kylie (Multiple Vitamin) Tablet] 1 tab PO DAILY 02/12/19 Promethazine HCl [Phenergan 25 mg Tablet] 25 mg PO Q12HP PRN 02/12/19 Tramadol HCl [Ultram 50 mg Tablet] 50 mg PO Q8HP PRN 02/12/19 History of Present Illiness History of Present Illness: YESSY ALMODOVAR is a 53 year old male with known diabetes and multiple sclerosis. Patient seems to have a complex medical history, however, limited documentation to confirm. What is known is that he had an admission in January 2018 for GERD, vomiting and that this admission was prolonged and complicated by a nosocomial pneumonia. There is also mention of gastric bypass surgery and he has an obvious history of a left BKA. Patient presented to the emergency room today with significant mental status changes and possible compromised airway. He reportedly began taking baclofen this previous Friday however, these details are unclear. He was intubated in the emergency room after second attempt and brief episode of desaturation. He was started on propofol and was then transferred to the intensive care unit for vent weaning and further evaluation of his mental status. He is currently being weaned off of propofol. Hospital Course Hospital Course: It is suspected that this is been due to polypharmacy. We held some of the sedating medications and his mental status cleared up spontaneously. He blames it on the baclofen that he had recently been prescribed. He thinks that combined with some of his other medications that made him encephalopathic. He says this is never happened to him before. He plans on discontinuing the baclofen until he can meet back with his doctor. He is breathing fine on room air. His labs and examination are reassuring and he is discharged in good condition. Physical Exam Vital Signs: Temp Pulse Resp BP Pulse Ox 98.3 F 60 16 143/89 H 100 02/14/19 08:09 02/14/19 08:09 02/14/19 08:09 02/14/19 08:09 02/14/19 08:09 Intake & Output 02/13/19 02/14/19 02/15/19 06:59 06:59 06:59 Intake Total 3720 2330 960 Output Total 4170 3300 1125 Balance -450 -970 -165 Weight 106.1 kg 103.1 kg General appearance: PRESENT: no acute distress, cooperative, disheveled, obese Respiratory exam: PRESENT: clear to auscultation jorge, symmetrical, unlabored. ABSENT: accessory muscle use, chest wall tenderness, crackles, prolonged expiratory phas, rhonchi, tachypnea, wheezes Cardiovascular exam: PRESENT: RRR, +S1, +S2 Pulses: PRESENT: normal carotid pulses Vascular exam: PRESENT: normal capillary refill GI/Abdominal exam: PRESENT: normal bowel sounds, soft. ABSENT: distended, guarding, rebound, tenderness Extremities exam: ABSENT: clubbing, pedal edema Musculoskeletal exam: PRESENT: normal inspection. ABSENT: deformity Neurological exam: PRESENT: alert, awake, oriented to person, oriented to place, oriented to situation Psychiatric exam: PRESENT: appropriate affect, normal mood Skin exam: PRESENT: dry, warm Results Laboratory Results: WBC 6.7 10^3/uL (4.0-10.5) 02/11/19 03:48 RBC 4.94 10^6/uL (4.35-5.55) 02/11/19 03:48 Hgb 12.3 g/dL (13.5-17.0) L 02/11/19 03:48 Hct 37.4 % (37.9-51.0) L 02/11/19 03:48 MCV 76 fl (80-97) L 02/11/19 03:48 MCH 25.0 pg (27.0-33.4) L 02/11/19 03:48 MCHC 32.9 g/dL (32.0-36.0) 02/11/19 03:48 RDW 22.3 % (11.5-14.0) H 02/11/19 03:48 Plt Count 296 10^3/uL (150-450) 02/11/19 03:48 Lymph % (Auto) 24.1 % (13-45) 02/10/19 14:09 [place] % (Auto) 7.8 % (3-13) 02/10/19 14:09 Eos % (Auto) 4.2 % (0-6) 02/10/19 14:09 Baso % (Auto) 0.4 % (0-2) 02/10/19 14:09 Absolute Neuts (auto) 3.9 10^3/uL (1.7-8.2) 02/10/19 14:09 Absolute Lymphs (auto) 1.5 10^3/uL (0.5-4.7) 02/10/19 14:09 Absolute Monos (auto) 0.5 10^3/uL (0.1-1.4) 02/10/19 14:09 Absolute Eos (auto) 0.3 10^3/uL (0.0-0.6) 02/10/19 14:09 Absolute Basos (auto) 0.0 10^3/uL (0.0-0.2) 02/10/19 14:09 Seg Neutrophils % 63.5 % (42-78) 02/10/19 14:09 PT 13.7 SEC (11.4-15.4) 02/11/19 03:48 INR 1.05 02/11/19 03:48 APTT 30.3 SEC (23.5-35.8) 02/11/19 03:48 Carbonic Acid 1.25 mmol/L (1.05-1.35) 02/10/19 21:10 HCO3/H2CO3 Ratio 18:1 02/10/19 21:10 ABG pH 7.36 (7.35-7.45) 02/10/19 21:10 ABG pCO2 41.5 mmHg (35-45) 02/10/19 21:10 ABG pO2 73.4 mmHg (80-100) L 02/10/19 21:10 ABG HCO3 22.7 mmol/L (20-24) 02/10/19 21:10 ABG Total CO2 23.9 mmol/L (23-27) 02/10/19 21:10 ABG O2 Saturation 94.2 % (94-98) 02/10/19 21:10 ABG Base Excess -2.7 mmol/L 02/10/19 21:10 VBG pH 7.38 (7.30-7.42) 02/10/19 15:25 VBG pCO2 35.2 mmHg (35-63) 02/10/19 15:25 VBG HCO3 20.5 mmol/L (20-32) 02/10/19 15:25 VBG Base Excess -3.9 mmol/L 02/10/19 15:25 FiO2 40% 02/10/19 21:10 Sodium 145.9 mmol/L (137-145) H 02/11/19 03:48 Potassium 3.7 mmol/L (3.6-5.0) 02/11/19 03:48 Chloride 112 mmol/L (98-107) H 02/11/19 03:48 Carbon Dioxide 23 mmol/L (22-30) 02/11/19 03:48 Anion Gap 11 (5-19) 02/11/19 03:48 BUN 7 mg/dL (7-20) 02/11/19 03:48 Creatinine 0.78 mg/dL (0.52-1.25) 02/11/19 03:48 Est GFR ( Amer) > 60 (>60) 02/11/19 03:48 Est GFR (MDRD) Non-Af > 60 (>60) 02/11/19 03:48 Glucose 124 mg/dL (75-110) H 02/11/19 03:48 POC Glucose 87 mg/dL (70-110) 02/12/19 05:14 Hemoglobin A1c % 5.4 % (4.7-6.0) 02/11/19 03:48 Lactic Acid 0.7 mmol/L (0.7-2.1) 02/10/19 17:30 Calcium 9.5 mg/dL (8.4-10.2) 02/11/19 03:48 Phosphorus 3.9 mg/dL (2.5-4.5) 02/11/19 03:48 Magnesium 2.0 mg/dL (1.6-2.3) 02/11/19 03:48 Total Bilirubin 0.4 mg/dL (0.2-1.3) 02/11/19 03:48 Direct Bilirubin 0.2 mg/dL (0.0-0.4) 02/11/19 03:48 Neonat Total Bilirubin Not Reportable 02/11/19 03:48 Neonat Direct Bilirubin Not Reportable 02/11/19 03:48 Neonat Indirect Bili Not Reportable 02/11/19 03:48 AST 25 U/L (17-59) 02/11/19 03:48 ALT 18 U/L (<50) 02/11/19 03:48 Alkaline Phosphatase 79 U/L (38-126) 02/11/19 03:48 Ammonia 13.0 umol/L (9-33) 02/10/19 22:45 Troponin I < 0.012 ng/mL 02/11/19 03:48 Total Protein 6.8 g/dL (6.3-8.2) 02/11/19 03:48 Albumin 3.7 g/dL (3.5-5.0) 02/11/19 03:48 Triglycerides 219 mg/dL (<150) H 02/11/19 03:48 Cholesterol 120.46 mg/dL (0-200) 02/11/19 03:48 LDL Cholesterol Direct 80 mg/dL (<100) 02/11/19 03:48 VLDL Cholesterol 43.8 mg/dL (10-31) H 02/11/19 03:48 HDL Cholesterol 21 mg/dL (>40) L 02/11/19 03:48 Amylase 105 U/L (30-110) 02/11/19 03:48 Lipase 35.5 U/L (23-300) 02/11/19 03:48 Free T4 0.86 ng/dL (0.78-2.19) 02/11/19 03:48 Urine Color YELLOW 02/10/19 17:00 Urine Appearance CLEAR 02/10/19 17:00 Urine pH 6.0 (5.0-9.0) 02/10/19 17:00 Ur Specific [place] 1.008 02/10/19 17:00 Urine Protein NEGATIVE mg/dL (NEGATIVE) 02/10/19 17:00 Urine Glucose (UA) NEGATIVE mg/dL (NEGATIVE) 02/10/19 17:00 Urine Ketones NEGATIVE mg/dL (NEGATIVE) 02/10/19 17:00 Urine Blood NEGATIVE (NEGATIVE) 02/10/19 17:00 Urine Nitrite NEGATIVE (NEGATIVE) 02/10/19 17:00 Urine Bilirubin NEGATIVE (NEGATIVE) 02/10/19 17:00 Urine Urobilinogen NEGATIVE mg/dL (<2.0) 02/10/19 17:00 Ur Leukocyte Esterase NEGATIVE (NEGATIVE) 02/10/19 17:00 Urine RBC (Auto) 2 /HPF 02/10/19 17:00 Urine Mucus (Auto) RARE /LPF 02/10/19 17:00 Urine Ascorbic Acid NEGATIVE (NEGATIVE) 02/10/19 17:00 Salicylates < 1.0 mg/dL (2.0-20.0) L 02/10/19 14:09 Urine Opiates Screen NEGATIVE 02/10/19 17:00 Urine Methadone Screen NEGATIVE 02/10/19 17:00 Acetaminophen < 10 ug/mL (10-30) L 02/10/19 14:09 Ur Barbiturates Screen NEGATIVE 02/10/19 17:00 Ur Phencyclidine Scrn NEGATIVE 02/10/19 17:00 Ur Amphetamines Screen NEGATIVE 02/10/19 17:00 U Benzodiazepines Scrn UNCONFIRMED POSITIVE 02/10/19 17:00 Urine Cocaine Screen NEGATIVE 02/10/19 17:00 U Marijuana (THC) Screen NEGATIVE 02/10/19 17:00 Serum Alcohol < 10 mg/dL (NONE DETECTED) 02/10/19 14:09 Serum Alcohol < 10 mg/dL (NONE DETECTED) 02/10/19 14:09 02/10/19 02/11/19 14:09 03:48 Troponin I < 0.012 < 0.012 Impressions: Chest X-Ray 02/10/19 00:00 IMPRESSION: Tip of the enteric tube in the stomach. Other findings are stable copyright 2011 [employer]- All Rights Reserved Chest X-Ray 02/10/19 15:00 IMPRESSION: Low inspiratory lung volumes without a superimposed acute cardiopulmonary process. Head CT 02/10/19 16:33 IMPRESSION: No acute findings EVIDENCE OF ACUTE STROKE: NO. Chest X-Ray 02/10/19 19:02 IMPRESSION: Low lung volumes. Minimal patchy bilateral airspace disease edema versus pneumonia. Endotracheal tube, nasogastric tube in good positioning. Borderline cardiomegaly Chest X-Ray 02/11/19 06:00 IMPRESSION: NO CHANGE IN APPEARANCE OF THE CHEST. Plan Time Spent: Greater than 30 Minutes Stroke Is this a Stroke Patient?: No Acute Heart Failure - Is this a Heart Failure Patient?: No
[2019-02-14 14:32] VITALS: BP 163/99
[2019-02-14] MEDS ORDERED: RIVAROXABAN 10 MG TABLET PO SCH (17:00)
== END 2019-02-14 14:45 | disposition home or self-care (01) | DRG 208 ==
LOC: ER 13:44 → EH 20:46 → ICU 21:55 → 5 02-12 18:43
PROVIDERS: ADMIT Hospitalist; ATTEND Hospitalist
PROC: 5A1935Z Respiratory Ventilation, Less than 24 Consecutive Hours (ICD-10-PCS; principal; 2019-02-10)
PROC: 0BH17EZ Insertion of Endotracheal Airway into Trachea, Via Natural or Artificial Opening (ICD-10-PCS; 2019-02-10)
DX: J96.01 Acute respiratory failure with hypoxia (principal); G92 Toxic encephalopathy; T42.8X5A Adverse effect of antiparkinsonism drugs and other central muscle-tone depressants, initial encounter; I10 Essential (primary) hypertension; K21.9 Gastro-esophageal reflux disease without esophagitis; E11.8 Type 2 diabetes mellitus with unspecified complications; G35 Multiple sclerosis; F31.9 Bipolar disorder, unspecified; Z98.84 Bariatric surgery status; Z89.511 Acquired absence of right leg below knee; Y92.018 Other place in single-family (private) house as the place of occurrence of the external cause
CPT/HCPCS: 36415; 36600; 70450; 71045; 80048; 80053; 80061; 80076; 80307; 81001; 82140; 82150; 82803; 82962; 83036; 83605; 83690; 83735; 84100; 84439; 84484; 85025; 85027; 85610; 85730; 87040; 93005; 93010; 94002; 94003; 96374; 96376; 99291; J0330; J1644; J1885; J2060; J2310; J2704; J3010; J3411; J3420; J3475; J3480; J3490; J7030; J7040; S0028; S0119

== ENCOUNTER → 2019-03-17 | Outpatient (CLI) | payer MEDICARE, MEDICAID ==
[2019-03-17 09:34] LABS: ABSOLUTE EOSINOPHILS # (AUTO) 0.3 10^3/uL (0.0-0.6); ABSOLUTE LYMPHOCYTES (AUTO) 1.3 10^3/uL (0.5-4.7); ABSOLUTE MONOCYTES (AUTO) 0.4 10^3/uL (0.1-1.4); BASOPHILS % (AUTO) 0.4 % (0-2); EOSINOPHILS % (AUTO) 4.3 % (0-6); HEMATOCRIT 38.2 % (37.9-51.0); HEMOGLOBIN 12.6 g/dL (13.5-17.0); LYMPHOCYTES % (AUTO) 16.5 % (13-45); MEAN CORPUSCULAR HEMOGLOBIN 25.2 pg (27.0-33.4); MEAN CORPUSCULAR HGB CONC 32.9 g/dL (32.0-36.0); MEAN CORPUSCULAR VOLUME 77 fl (80-97); MONOCYTES % (AUTO) 5.4 % (3-13); PLATELET COUNT 196 10^3/uL (150-450); RED CELL DISTRIBUTION WIDTH 16.2 % (11.5-14.0); SEGMENTED NEUTROPHILS % (AUTO) 73.4 % (42-78); TOTAL CELLS COUNTED % (AUTO) 100 %; WHITE BLOOD COUNT 8.1 10^3/uL (4.0-10.5)
[2019-03-17 10:46] LABS: ANISOCYTOSIS 1+; TOXIC GRANULATION SLIGHT
[2019-03-17 10:47] LABS: HYPOCHROMASIA SLIGHT; OVALOCYTES SLIGHT
[2019-03-17 10:48] LABS: PLATELET COMMENT ADEQUATE
== END ==
LOC: OD 08:17
PROVIDERS: ATTEND Family Medicine Geriatric Medicine
DX: D64.9 Anemia, unspecified (principal)
CPT/HCPCS: 36415; 85025

== ENCOUNTER → 2019-03-22 | Outpatient (CLI) | payer MEDICARE, MEDICAID ==
[2019-03-23 05:37] LABS: HEPATITS B SURFACE ANTIGEN Negative (Negative)
[2019-03-24 08:26] LABS: HEPATITIS C VIRUS ANTIBODY 0.3 s/co ratio (0.0-0.9)
== END ==
LOC: OD 08:10
PROVIDERS: ATTEND Family Medicine Geriatric Medicine
DX: B19.20 Unspecified viral hepatitis C without hepatic coma (principal)
CPT/HCPCS: 36415; 80074

== ENCOUNTER → 2019-04-29 | Outpatient (CLI) | payer MEDICARE, MEDICAID ==
--- NOTE | 2019-04-29 12:58 | RADIOLOGY REPORT (SQ) ---
EXAM DESCRIPTION: FOOT LEFT COMPLETE COMPLETED DATE/TIME: 04/29/2019 10:20 am REASON FOR STUDY: LT FOOT/TOE PAIN. SEE ORDER COMPARISON: None. NUMBER OF VIEWS: Three views. TECHNIQUE: AP, lateral and oblique radiographic images acquired of the left foot. LIMITATIONS: None. FINDINGS: MINERALIZATION: Normal. BONES: No acute fracture or dislocation. No worrisome bone lesions. JOINTS: No effusions. SOFT TISSUES: No soft tissue swelling. No foreign body. OTHER: Small dorsal and plantar calcaneal spurs. IMPRESSION: Small calcaneal spurs. No acute finding. TECHNICAL DOCUMENTATION: JOB ID: [id number] 2010 [employer]- All Rights Reserved Reading location - IP/workstation name: [email or web address]
== END ==
LOC: OD 09:52
PROVIDERS: ATTEND Family Medicine Geriatric Medicine
DX: M79.675 Pain in left toe(s) (principal)

== ENCOUNTER → 2019-07-07 | Outpatient (CLI) | payer MEDICARE, MEDICAID ==
--- NOTE | 2019-07-07 12:46 | RADIOLOGY REPORT (SQ) ---
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 TECHNIQUE: AP, lateral, oblique, and sacral radiographic images acquired of the lumbar spine. LIMITATIONS: None. FINDINGS: MINERALIZATION: Normal. SEGMENTATION: Normal. No transitional anatomy. ALIGNMENT: Straightening of the normal lumbar lordosis. VERTEBRAE: Maintained height. No fracture. Mild multilevel osteophytosis. DISCS: Multilevel disc height loss throughout the lumbar spine greatest at L2-3 and L3-4 with associa michael endplate osteophytosis, findings progressed from prior. POSTERIOR ELEMENTS: Pedicles and facets are intact. No pars defect or posterior arch defects. Minim al lower lumbar facet arthropathy. HARDWARE: None in the spine. PARASPINAL SOFT TISSUES: Inferior vena cava filter overlies IVC at L1-2. PELVIS: Intact as visualized. No fractures or worrisome bone lesions. SI joints intact. OTHER: No other significant finding. IMPRESSION: No evidence of acute bony abnormality. Multilevel degenerative changes and lower lumbar facet arthropathy, progressed from prior. TECHNICAL DOCUMENTATION: JOB ID: [id number] 2010 [employer]- All Rights Reserved Reading location - IP/workstation name: [email or web address]
--- NOTE | 2019-07-07 12:54 | RADIOLOGY REPORT (SQ) ---
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 NUMBER OF VIEWS: Three views. TECHNIQUE: AP, lateral, and tilt views of the sacrum and coccyx. LIMITATIONS: None. FINDINGS: MINERALIZATION: Normal. BONES: No acute fracture or dislocation. No worrisome bone lesions. Mild lower lumbar spondylosis a nd facet arthropathy. Bilateral SI joint osteophytosis, mild. SOFT TISSUES: No soft tissue swelling. No foreign body. OTHER: No other significant finding. IMPRESSION: No evidence of acute bony abnormality of the pelvis. TECHNICAL DOCUMENTATION: JOB ID: [id number] 2010 [employer]- All Rights Reserved Reading location - IP/workstation name: [email or web address]
[2019-07-07 12:56] LABS: ABSOLUTE EOSINOPHILS # (AUTO) 0.2 10^3/uL (0.0-0.6); ABSOLUTE LYMPHOCYTES (AUTO) 1.1 10^3/uL (0.5-4.7); ABSOLUTE MONOCYTES (AUTO) 0.6 10^3/uL (0.1-1.4); ABSOLUTE NEUT (AUTO) 9.5 10^3/uL (1.7-8.2); BASOPHILS % (AUTO) 0.2 % (0-2); EOSINOPHILS % (AUTO) 1.6 % (0-6); HEMATOCRIT 36.8 % (37.9-51.0); HEMOGLOBIN 12.4 g/dL (13.5-17.0); LYMPHOCYTES % (AUTO) 9.5 % (13-45); MEAN CORPUSCULAR HEMOGLOBIN 26.9 pg (27.0-33.4); MEAN CORPUSCULAR HGB CONC 33.8 g/dL (32.0-36.0); MEAN CORPUSCULAR VOLUME 79 fl (80-97); MONOCYTES % (AUTO) 4.9 % (3-13); PLATELET COUNT 174 10^3/uL (150-450); RED BLOOD COUNT 4.63 10^6/uL (4.35-5.55); RED CELL DISTRIBUTION WIDTH 18.2 % (11.5-14.0); SEGMENTED NEUTROPHILS % (AUTO) 83.8 % (42-78); TOTAL CELLS COUNTED % (AUTO) 100 %; WHITE BLOOD COUNT 11.4 10^3/uL (4.0-10.5)
[2019-07-07 13:20] LABS: ALBUMIN 4.2 g/dL (3.5-5.0); ALKALINE PHOSPHATASE 87 U/L (38-126); ANION GAP 14 (5-19); ASPARTATE AMINO TRANSFERASE 24 U/L (17-59); BILIRUBIN,TOTAL 0.3 mg/dL (0.2-1.3); BLOOD UREA NITROGEN 10 mg/dL (7-20); CALCIUM 8.9 mg/dL (8.4-10.2); CARBON DIOXIDE 16 mmol/L (22-30); CHLORIDE 109 mmol/L (98-107); GLUCOSE 127 mg/dL (75-110); POTASSIUM 3.7 mmol/L (3.6-5.0); TOTAL PROTEIN 7.5 g/dL (6.3-8.2)
== END ==
LOC: OD 11:51
PROVIDERS: ATTEND Family Medicine Geriatric Medicine
DX: M54.5 Low back pain (principal); M25.78 Osteophyte, vertebrae; M47.896 Other spondylosis, lumbar region; G35 Multiple sclerosis; D64.9 Anemia, unspecified; R35.1 Nocturia; Z79.899 Other long term (current) drug therapy
CPT/HCPCS: 36415; 72110; 72220; 80053; 84153; 85025

== ENCOUNTER → 2019-07-28 | Outpatient (CLI) | payer MEDICARE, MEDICAID ==
[2019-07-28 09:34] LABS: ABSOLUTE EOSINOPHILS # (AUTO) 0.2 10^3/uL (0.0-0.6); ABSOLUTE MONOCYTES (AUTO) 0.6 10^3/uL (0.1-1.4); ABSOLUTE NEUT (AUTO) 7.7 10^3/uL (1.7-8.2); BASOPHILS % (AUTO) 0.1 % (0-2); EOSINOPHILS % (AUTO) 2.2 % (0-6); HEMOGLOBIN 12.8 g/dL (13.5-17.0); LYMPHOCYTES % (AUTO) 10.8 % (13-45); MEAN CORPUSCULAR HEMOGLOBIN 26.9 pg (27.0-33.4); MEAN CORPUSCULAR HGB CONC 33.7 g/dL (32.0-36.0); MEAN CORPUSCULAR VOLUME 80 fl (80-97); MONOCYTES % (AUTO) 5.8 % (3-13); PLATELET COUNT 180 10^3/uL (150-450); RED BLOOD COUNT 4.76 10^6/uL (4.35-5.55); RED CELL DISTRIBUTION WIDTH 16.6 % (11.5-14.0); SEGMENTED NEUTROPHILS % (AUTO) 81.1 % (42-78); TOTAL CELLS COUNTED % (AUTO) 100 %; WHITE BLOOD COUNT 9.5 10^3/uL (4.0-10.5)
[2019-07-28 10:03] LABS: ANION GAP 9 (5-19); BLOOD UREA NITROGEN 18 mg/dL (7-20); CARBON DIOXIDE 23 mmol/L (22-30); CHLORIDE 107 mmol/L (98-107); GLUCOSE 120 mg/dL (75-110); POTASSIUM 4.1 mmol/L (3.6-5.0)
[2019-07-29 12:36] LABS: CREATININE URINE 132.7 mg/dL (Not Estab.); MICROALBUMIN URINE 4.1 ug/mL (Not Estab.)
== END ==
LOC: OD 08:55
PROVIDERS: ATTEND Family Medicine Geriatric Medicine
DX: E11.9 Type 2 diabetes mellitus without complications (principal); I10 Essential (primary) hypertension; D64.9 Anemia, unspecified; E66.3 Overweight; Z79.899 Other long term (current) drug therapy
CPT/HCPCS: 36415; 80048; 82043; 82570; 83036; 84443; 85025

== ENCOUNTER → 2019-08-04 | Outpatient (CLI) | payer MEDICARE, MEDICAID ==
[2019-08-04 10:00] LABS: HEMATOCRIT 38.5 % (37.9-51.0); HEMOGLOBIN 13.2 g/dL (13.5-17.0); MEAN CORPUSCULAR HEMOGLOBIN 27.4 pg (27.0-33.4); MEAN CORPUSCULAR HGB CONC 34.3 g/dL (32.0-36.0); MEAN CORPUSCULAR VOLUME 80 fl (80-97); PLATELET COUNT 192 10^3/uL (150-450); RED BLOOD COUNT 4.81 10^6/uL (4.35-5.55); RED CELL DISTRIBUTION WIDTH 17.1 % (11.5-14.0); WHITE BLOOD COUNT 8.1 10^3/uL (4.0-10.5)
[2019-08-04 10:13] LABS: ALBUMIN 4.5 g/dL (3.5-5.0); ALKALINE PHOSPHATASE 104 U/L (38-126); ANION GAP 11 (5-19); ASPARTATE AMINO TRANSFERASE 27 U/L (17-59); BILIRUBIN,TOTAL 0.3 mg/dL (0.2-1.3); BLOOD UREA NITROGEN 13 mg/dL (7-20); CALCIUM 9.3 mg/dL (8.4-10.2); CARBON DIOXIDE 22 mmol/L (22-30); CHLORIDE 108 mmol/L (98-107); POTASSIUM 4.2 mmol/L (3.6-5.0); TOTAL PROTEIN 7.7 g/dL (6.3-8.2)
[2019-08-04 10:17] LABS: GLUCOSE 64 mg/dL (75-110)
[2019-08-04 10:28] LABS: ABSOLUTE LYMPHOCYTES# (MANUAL) 2.9 10^3/uL (0.5-4.7); ABSOLUTE MONOCYTES # (MANUAL) 0.4 10^3/uL (0.1-1.4); BAND NEUTROPHILS % (MANUAL) 1 % (3-5); BASOPHILS % (MANUAL) 0 % (0-2); EOSINOPHILS % (MANUAL) 1 % (0-6); LYMPHOCYTES % (MANUAL) 36 % (13-45); MONOCYTES % (MANUAL) 5 % (3-13); SEGMENTED NEUTROPHILS % (MAN) 57 % (42-78); TOTAL CELLS COUNTED 100
[2019-08-04 10:29] LABS: ANISOCYTOSIS 1+; PLATELET COMMENT ADEQUATE
[2019-08-04 10:30] LABS: OVALOCYTES SLIGHT; POIKILOCYTOSIS SLIGHT; POLYCHROMASIA SLIGHT; TEAR DROP CELLS SLIGHT
== END ==
LOC: OD 08:56
PROVIDERS: ATTEND Family Medicine Geriatric Medicine
DX: Z79.899 Other long term (current) drug therapy (principal); D64.9 Anemia, unspecified; G35 Multiple sclerosis
CPT/HCPCS: 36415; 80053; 85025

== ENCOUNTER → 2019-08-31 | Outpatient (CLI) | payer MEDICARE, MEDICAID ==
--- NOTE | 2019-08-31 16:41 | RADIOLOGY REPORT (SQ) ---
EXAM DESCRIPTION: CHEST PA/LATERAL IMAGES COMPLETED DATE/TIME: 08/31/2019 4:20 pm REASON FOR STUDY: COUGH COMPARISON: 02/11/2019 EXAM PARAMETERS: NUMBER OF VIEWS: two views TECHNIQUE: Digital Frontal and Lateral radiographic views of the chest acquired. RADIATION DOSE: NA LIMITATIONS: none FINDINGS: LUNGS AND PLEURA: Diffuse interstitial pattern. No infiltrate. No effusions. MEDIASTINUM AND HILAR STRUCTURES: No masses or contour abnormalities. HEART AND VASCULAR STRUCTURES: Heart normal size. No evidence for failure. BONES: No acute findings. HARDWARE: None in the chest. OTHER: No other significant finding. IMPRESSION: Diffuse interstitial pattern. Differential is chronic interstitial lung disease, viral/ atypical pneumonia or pulmonary edema. Clinical correlation is needed. TECHNICAL DOCUMENTATION: JOB ID: [id number] 2010 [employer]- All Rights Reserved Reading location - IP/workstation name: [email or web address]
== END ==
LOC: OD 15:40
PROVIDERS: ATTEND Family Medicine Geriatric Medicine
DX: R05 Cough (principal)
CPT/HCPCS: 71046

== ENCOUNTER → 2019-09-01 | Outpatient (CLI) | payer MEDICARE, MEDICAID ==
[2019-09-01 14:20] VITALS: BP 138/80
--- NOTE | 2019-09-01 14:20 | ER RDC ASSESSMENT REPORT ---
Intake - In the Last 14 days Have you traveled outside [place]?: No Have you been in close contact with someone CONFIRMED: No Worked in Healthcare?: No - Symptoms Subjective Fever([place] feverish): No Chills: No Muscule Aches: No Runny Nose: No Sore Throat: No Cough (New or worsening chronic cough): Yes Shortness of breath: No Nausea or Vomiting: No Headache: No Abdominal Pain: No Diarrhea(3 or more loose stools in last 24 hours): No - Do you have any of the following Chronic lung disease: Asthma or emphysema or COPD: No Cystic Fibrosis: No Diabetes: No High Blood Pressure: No Cardiovascular Disease: No Chronic Kidney Disease: No Chronic Liver Disease: No Chronic blood disorder like Sickle Cell Disease: No Weak immune system due to disease or medication: No Neurologic condition that limits movement: Yes Developmental delay - Moderate to Severe: No Recent (within past 2 weeks) or current : No Morbid Obesity (>100 pounds over ideal weight): No - Objective Vital Signs: 6'4" 265 lb Temperature: 97.2 F Pulse Rate: 79 Respiratory Rate: 16 Blood Pressure: 138/80 O2 Sat by Pulse Oximetry: 95 Objective: Given above, testing performed: covid Disposition: Home; Selfcare General - General Chief Complaint: Cough Time Seen by Provider: 09/01/19 13:45 Mode of Arrival: Ambulatory Information source: Patient - HPI Notes: 54-year-old male presents to [facility] clinic for COVID-19 testing. Patient has medical history significant for MS, GERD, right knee amputation. Patient reports that he did have symptoms last week of fever, chills, myalgia, rhinorrhea, sore throat, and cough. Patient states all of these symptoms except for the cough have now resolved as of 08/29/2019. He states he feels the cough is improving as well. At this time he is denying any fever, chills, myalgia, nausea, vomiting, diarrhea, abdominal pain, shortness of breath, or headache. - Related Data Allergies/Adverse Reactions: aripiprazole [From Abilify] Adverse Reaction (Severe, Verified 11/18/18 01:15) "uncontrollable muscle tremors" Home Medications: Lexapro Seroquel Zyprexa Prilosec Tecfidera baclofen gabapentin Past Medical History - General Information source: Patient - Social History Smoking Status: Never Smoker Lives with: Spouse/Significant other Family History: Reviewed & Not Pertinent, CAD, Hypertension, Other - ulcers father and sister - Past Medical History Cardiac Medical History: Reports: Hx Hypertension Denies: Hx Coronary Artery Disease, Hx Heart Attack, Hx Heart Murmur Pulmonary Medical History: Reports: Hx Pneumonia Denies: Hx Asthma, Hx Bronchitis, Hx COPD EENT Medical History: Reports: None Neurological Medical History: Denies: Hx Cerebrovascular Accident, Hx Seizures, Hx Parkinson's Disease Endocrine Medical History: Reports: Hx Diabetes Mellitus Type 2 - Since gastric bypass has been able to stop all medications Renal/ Medical History: Reports: Hx Kidney Stones. Denies: Hx Peritoneal Dialysis Malignancy Medical History: Reports None GI Medical History: Reports: Hx Gastroesophageal Reflux Disease, Hx Ulcer - 4x. Denies: Hx Pancreatitis Musculoskeletal Medical History: Reports Hx Arthritis, Reports Hx Multiple Sclerosis, Denies Hx Systemic Lupus Erythematosus Skin Medical History: Reports Hx MRSA Psychiatric Medical History: Reports: Hx Bipolar Disorder, Hx Depression Traumatic Medical History: Reports: Hx Fractures - RT ankle 2010 Infectious Medical History: Reports: Hx MRSA Past Surgical History: Reports: Hx Abdominal Surgery - Repair of complications from gastric bypass, Hx Appendectomy - 1975, Hx Bowel Surgery - bowel perforation 09/26/2015, May 2016, Hx Gastric Bypass Surgery - 02/19/13, Hx Orthopedic Surgery - Right below-knee amputation, Hx Tonsillectomy - 1978 Physical Exam - General General appearance: Appears well In distress: None Notes: PHYSICAL EXAMINATION: GENERAL: Well-appearing and in no acute distress. HEAD: Atraumatic, normocephalic. EYES: sclera anicteric, conjunctiva are normal. ENT: nares patent. Moist mucous membranes. NECK: Normal range of motion, supple without lymphadenopathy LUNGS: CTAB and equal. No wheezes rales or rhonchi. HEART: Regular rate and rhythm without murmurs ABDOMEN: Soft, nontender, normal bowel sounds, no guarding. EXTREMITIES: Normal range of motion, no pitting edema. No cyanosis. Right lower extremity BKA. NEUROLOGICAL: Cranial nerves grossly intact. Normal speech. PSYCH: Normal mood, normal affect. SKIN: Warm, Dry, normal turgor, no rashes or lesions noted Patient Education/Counseling Counseling/Education: Patient presents with upper respiratory symptoms worrisome for possible Covid 19. Patient does not have emergency worrying symptoms such as difficulty breathing, shortness of breath, chest pain, pressure, confusion or cyanosis. Patient appears suitable for discharge as vital signs are stable and patient is nontoxic in appearance. Good return precautions have been discussed with patient, patient verbalized understanding and is agreeable with discharge plan of care at this time. Guidance for worsening S/SX: As a person under investigation for Covid 19, the [facility] of Health and Human Services, division of public health advises you to adhere to the following guidance until your test results are reported to you. If your test result is positive, you will receive additional information from your provider and your local health department at that time. Remain at home until you are cleared by the health provider or public health authorities. Keep a log of visitors to your home, notify any visitors to your home of your isolation status. If you plan to move to a new address or leave the county, notify the local health department in your County. Call your doctor or seek care if you have an urgent medical need. Before seeking medical care, call ahead to get instructions from the provider before arriving at the medical office clinic or hospital. Notify them that you are being tested for the virus that causes Covid 19 so that arrangements can be made, as necessary, to prevent transmission to others in the healthcare setting. Next, notify the local health department in your county. If a medical emergency arises and you need to call 911, inform the first responders that you are being tested for the virus that causes Covid 19. Next, notify the local health department in your county. RDC Discharge - Discharge Clinical Impression: Encounter for screening laboratory testing for COVID-19 virus Respiratory infection, upper Qualifiers: URI type: unspecified URI Qualified Code(s): J06.9 - Acute upper respiratory infection, unspecified Condition: Good Disposition: Home; Selfcare
== END ==
LOC: RDC 13:27
PROVIDERS: ATTEND Registered Nurse
DX: Z20.828 Contact with and (suspected) exposure to other viral communicable diseases (principal); J06.9 Acute upper respiratory infection, unspecified; R05 Cough; G35 Multiple sclerosis; K21.9 Gastro-esophageal reflux disease without esophagitis; E11.9 Type 2 diabetes mellitus without complications; Z86.14 Personal history of Methicillin resistant Staphylococcus aureus infection; Z98.84 Bariatric surgery status; Z89.511 Acquired absence of right leg below knee; Z88.8 Allergy status to other drugs, medicaments and biological substances
CPT/HCPCS: U0003; C9803; 87635

== ENCOUNTER → 2019-09-08 | Outpatient (CLI) | payer MEDICARE, MEDICAID ==
[~2019-09-08] MED LIST changes: +DIAZEPAM 5 MG TABLET ONE; -SUCCINYLCHOLINE CHLORIDE INJ 200 MG/10 ML VIAL ONE
== END ==
LOC: RAD 10:48
PROVIDERS: ATTEND Physician Assistant
DX: G37.9 Demyelinating disease of central nervous system, unspecified (principal)

== ENCOUNTER → 2019-09-17 | Outpatient (CLI) | payer MEDICARE, MEDICAID ==
--- NOTE | 2019-09-17 14:19 | RADIOLOGY REPORT (SQ) ---
EXAM DESCRIPTION: CHEST PA/LATERAL IMAGES COMPLETED DATE/TIME: 09/17/2019 1:50 pm REASON FOR STUDY: COUGH; ABNORMAL CHEST XRAY COMPARISON: 08/31/2019 EXAM PARAMETERS: NUMBER OF VIEWS: two views TECHNIQUE: Digital Frontal and Lateral radiographic views of the chest acquired. RADIATION DOSE: NA LIMITATIONS: none FINDINGS: LUNGS AND PLEURA: Persistent diffuse bilateral interstitial airspace disease. Differentia l is unchanged including interstitial lung disease, atypical interstitial pneumonitis or edema. MEDIASTINUM AND HILAR STRUCTURES: No masses or contour abnormalities. HEART AND VASCULAR STRUCTURES: Stable in appearance. BONES: No acute findings. HARDWARE: None in the chest. OTHER: No other significant finding. IMPRESSION: No interval change in the chest with persistent bilateral interstitial airspace disease. TECHNICAL DOCUMENTATION: JOB ID: [id number] 2010 [employer]- All Rights Reserved Reading location - IP/workstation name: [email or web address]
== END ==
LOC: OD 13:29
PROVIDERS: ATTEND Family Medicine Geriatric Medicine
DX: R05 Cough (principal); R93.89 Abnormal findings on diagnostic imaging of other specified body structures
CPT/HCPCS: 71046

== ENCOUNTER → 2019-09-20 | Outpatient (CLI) | payer MEDICARE, MEDICAID ==
[2019-09-20 10:07] LABS: HEMATOCRIT 35.9 % (37.9-51.0); HEMOGLOBIN 11.9 g/dL (13.5-17.0); MEAN CORPUSCULAR HGB CONC 33.2 g/dL (32.0-36.0); MEAN CORPUSCULAR VOLUME 81 fl (80-97); PLATELET COUNT 184 10^3/uL (150-450); RED BLOOD COUNT 4.41 10^6/uL (4.35-5.55); RED CELL DISTRIBUTION WIDTH 15.8 % (11.5-14.0); WHITE BLOOD COUNT 5.5 10^3/uL (4.0-10.5)
[2019-09-20 10:28] LABS: ABSOLUTE LYMPHOCYTES# (MANUAL) 0.9 10^3/uL (0.5-4.7); ABSOLUTE MONOCYTES # (MANUAL) 0.6 10^3/uL (0.1-1.4); BAND NEUTROPHILS % (MANUAL) 2 % (3-5); BASOPHILS % (MANUAL) 0 % (0-2); EOSINOPHILS % (MANUAL) 7 % (0-6); LYMPHOCYTES % (MANUAL) 17 % (13-45); MONOCYTES % (MANUAL) 10 % (3-13); SEGMENTED NEUTROPHILS % (MAN) 64 % (42-78); TOTAL CELLS COUNTED 100
[2019-09-20 10:30] LABS: ALBUMIN 4.1 g/dL (3.5-5.0); ALKALINE PHOSPHATASE 77 U/L (38-126); ANION GAP 7 (5-19); ANISOCYTOSIS SLIGHT; ASPARTATE AMINO TRANSFERASE 26 U/L (17-59); BILIRUBIN,TOTAL 0.3 mg/dL (0.2-1.3); BLOOD UREA NITROGEN 14 mg/dL (7-20); CALCIUM 9.2 mg/dL (8.4-10.2); CARBON DIOXIDE 24 mmol/L (22-30); CHLORIDE 109 mmol/L (98-107); GLUCOSE 113 mg/dL (75-110); POLYCHROMASIA SLIGHT; POTASSIUM 4.3 mmol/L (3.6-5.0); TOTAL PROTEIN 7.2 g/dL (6.3-8.2)
[2019-09-20 10:31] LABS: PLATELET COMMENT ADEQUATE
== END ==
LOC: OD 09:22
PROVIDERS: ATTEND Family Medicine Geriatric Medicine
DX: G35 Multiple sclerosis (principal); R25.2 Cramp and spasm; D64.9 Anemia, unspecified; Z79.899 Other long term (current) drug therapy
CPT/HCPCS: 36415; 80053; 83735; 85025

== ENCOUNTER → 2019-09-23 | Outpatient (CLI) | payer MEDICARE, MEDICAID ==
--- NOTE | 2019-09-23 11:35 | RADIOLOGY REPORT (SQ) ---
EXAM DESCRIPTION: CT CHEST WITHOUT IMAGES COMPLETED DATE/TIME: 09/23/2019 7:24 am REASON FOR STUDY: ABN CHEST X RAY R93.89 ABNORMAL FINDINGS ON DX IMAGING OF OTH BODY STRUCTURE J84. 9 INTERSTITIAL PULMONARY DISEASE, UNSPECIFIED R06.02 SHORTNESS OF BREATH COMPARISON: 10/28/2014 TECHNIQUE: CT scan performed of the chest without intravenous contrast. Images reviewed with lung, soft tissue and bone windows. Reconstructed coronal and sagittal MPR images reviewed. All images st ored on PACS. All CT scanners at this facility use dose modulation, iterative reconstruction, and/or weight based d osing when appropriate to reduce radiation dose to as low as reasonably achievable (ALARA). [facility]: Dose Right [facility]: CareDose [facility]: Dose Right [facility]: Teradose 4D [facility]: Guaranteach RADIATION DOSE: CT Rad equipment meets quality standard of care and radiation dose reduction techniq ues were employed. CTDIvol: 18.1 mGy. DLP: 795 mGy-cm. mGy. LIMITATIONS: No technical limitations. FINDINGS: LUNGS AND PLEURA: Patchy ground-glass attenuation in the left lower lobe. No infiltrate. No effusions. HILAR AND MEDIASTINAL STRUCTURES: No identified masses or abnormal nodes. No obvious aneurysm. HEART AND VASCULAR STRUCTURES: No aneurysm. No pericardial effusion. UPPER ABDOMEN: No significant findings. Limited exam. THYROID AND OTHER SOFT TISSUES: No masses. No adenopathy. BONES: No significant finding. HARDWARE: None in the chest. OTHER: No other significant findings. IMPRESSION: Left lower lobe pneumonitis or developing pneumonia. TECHNICAL DOCUMENTATION: JOB ID: [id number] Quality ID # [id number]: Final reports with documentation of one or more dose reduction techniques (e.g., Au tomated exposure control, adjustment of the mA and/or kV according to patient size, use of iterative reconstruction technique) 2010 [employer]- All Rights Reserved Reading location - IP/workstation name: [email or web address]
--- NOTE | 2019-09-24 01:24 | XCELERA REPORT ---
[address] [address] Transthoracic Echocardiogram Report Name: YESSY ALMODOVAR Age: 54 yrs Gender: Male : 1965 Patient Status: Outpatient Patient Location: [facility] Study Date: 09/23/2019 08:16 AM Height: 76 in Weight: 275 lb BSA: 2.5 m2 Procedure: A complete two-dimensional transthoracic echocardiogram was performed (2D, M-mode, spectral and color flow Doppler). The study was technically difficult with many images being suboptimal in quality. Reason For Study: SOB Ordering Physician: KASSANDRA CARABALLO Performed By: Elaine Solomon Interpretation Summary LEFT VENTRICLE: LV Systolic function: LVEF is felt to be within normal limits. Best estimate is approximately LVEF is 60 to 65%. LV Diastolic Function: Grade II diastolic dysfunction noted. Wall motion: No definite regional wall motion abnormalities are noted. Left ventricular chamber size: is within normal limit. Left ventricular wall thickness: is increased indicative of Mild LVH. RIGHT VENTRICLE: RV systolic function: is felt to be within normal limit. Right Ventricle Size: mildly dilated. LEFT ATRIUM size: is mildly dilated. RIGHT ATRIUM size: is within normal limit. INTER ATRIAL SEPTUM: No definite atrial septal defect noted however a small PFO could be missed. AORTIC ROOT: seems to be within normal limits. ASCENDING AORTA: is not well visualized. INFERIOR VENA CAVA: was not well visualized. VALVES: MITRAL VALVE: Leaflets are mildly thickened. Mobility seems to be within normal limits. Mitral Regurgitation: Trace mitral regurgitation is noted. Mitral Stenosis: No mitral stenosis noted. Mitral valve prolapse: none noted. AORTIC VALVE: seems to be trileaflet with mild thickening but adequate excursion. Aortic stenosis: No aortic stenosis noted. Aortic regurgitation: No aortic incompetence noted. TRICUSPID VALVE: mobility and structures within normal limit. Tricuspid stenosis: no tricuspid stenosis noted. Tricuspid regurgitation: mild tricuspid regurgitation noted. Estimated RVSP: approximately 35 mmHg consistent with mild pulmonary hypertension. PULMONARY VALVE: was not well visualized but no significant abnormalities suspected. Pulmonary stenosis: no pulmonary stenosis noted. Pulmonary regurgitation: mild pulmonary regurgitation noted. MASSES AND THROMBUS: No definite intracardiac thrombus or masses are noted. PERICARDIUM: No pericardial effusion was noted. IMPRESSION: 1. Normal LVEF. 2. Mild LVH noted. 3. Grade II [mild] Diastolic Dysfunction noted. 4. Mild pulmonary and mild tricuspid regurgitation noted.. 5. LA is mildly dilated. RV is mildly dilated. 6. Mild pulmonary hypertension noted. MMode/2D Measurements & Calculations RVDd: 3.8 cm LVIDd: 4.8 cm FS: 37.8 % Ao root diam: 3.2 cm IVSd: 1.1 cm LVIDs: 3.0 cm EDV(Teich): 109.8 ml Ao root area: 7.8 cm2 LVPWd: 1.1 cm ESV(Teich): 35.3 ml LA dimension: 3.9 cm EF(Teich): 67.8 % Doppler Measurements & Calculations MV E max dinesh: MV P1/2t max dinesh: Ao V2 max: LV V1 max P.6 cm/sec 106.6 cm/sec 133.0 cm/sec 5.1 mmHg MV A max dinesh: MV P1/2t: 94.1 msec Ao max PG: LV V1 max: 92.3 cm/sec MVA(P1/2t): 2.3 cm2 7.1 mmHg 112.5 cm/sec MV E/A: 1.2 MV dec slope: 331.8 cm/sec2 MV dec time: 0.33 sec PA V2 max: PI end-d dinesh: TR max dinesh: MV P1/2t-pr_phl: 104.1 cm/sec 150.9 cm/sec 279.1 cm/sec 94.1 msec PA max P.3 mmHg TR max P.2 mmHg : KASSANDRA CARABALLO Shyamal
== END ==
LOC: RAD 07:13
PROVIDERS: ATTEND Family Medicine Geriatric Medicine
DX: J18.9 Pneumonia, unspecified organism (principal); J84.9 Interstitial pulmonary disease, unspecified
CPT/HCPCS: 71250; 93306

== ENCOUNTER 2019-09-26 08:55 | Emergency (ER) | payer MEDICARE, MEDICAID ==
--- NOTE | 2019-09-26 09:51 | ER Document Report ---
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 Associated with a dry nonproductive cough. The patient reports that he saw his PCP outpatient and had some imaging studies ordered which she reports showed a left lower lobe pneumonia on CAT scan. Patient states he seems to be getting worse. He reports an increase shortness of breath over the past 2 weeks. He denies any chest pain or known fever. Denies any known sick contacts or recent travel. No headache, abdominal pain, vomiting, diarrhea or rashes. TRAVEL OUTSIDE OF THE [place] IN LAST 30 DAYS: No - Related Data Allergies/Adverse Reactions: aripiprazole [From [employer]] Adverse Reaction (Severe, Verified 11/18/18 01:15) "uncontrollable muscle tremors" Home Medications: Exybutynin, Escitalopram, Pantaprazole, Quetiapine, Gabapentin, Topirimate, Olanzapine, Xarelto, Tizanidine, Levofloaxin Past Medical History - Social History Smoking Status: Never Smoker Family History: Reviewed & Not Pertinent, CAD, Hypertension, Other - Past Medical History Cardiac Medical History: Reports: Hx Hypertension Denies: Hx Coronary Artery Disease, Hx Heart Attack, Hx Heart Murmur Pulmonary Medical History: Reports: Hx Pneumonia Denies: Hx Asthma, Hx Bronchitis, Hx COPD Neurological Medical History: Denies: Hx Cerebrovascular Accident, Hx Seizures, Hx Parkinson's Disease Endocrine Medical History: Reports: Hx Diabetes Mellitus Type 2 - Since gastric bypass has been able to stop all medications Renal/ Medical History: Reports: Hx Kidney Stones. Denies: Hx Peritoneal Dialysis GI Medical History: Reports: Hx Gastroesophageal Reflux Disease, Hx Ulcer - 4x. Denies: Hx Pancreatitis Musculoskeletal Medical History: Reports Hx Arthritis, Reports Hx Multiple Sclerosis, Denies Hx Systemic Lupus Erythematosus Skin Medical History: Reports Hx MRSA Psychiatric Medical History: Reports: Hx Bipolar Disorder, Hx Depression Traumatic Medical History: Reports: Hx Fractures - RT ankle 2010 Infectious Medical History: Reports: Hx MRSA Past Surgical History: Reports: Hx Abdominal Surgery - Repair of complications from gastric bypass, Hx Appendectomy - 1975, Hx Bowel Surgery - bowel per foration 09/26/2015, May 2016, Hx Gastric Bypass Surgery - 02/19/13, Hx Orthopedic Surgery - Right below-knee amputation, Hx Tonsillectomy - 1978 - Immunizations Immunizations up to date: Yes Hx Diphtheria, Pertussis, Tetanus Vaccination: Yes Hx Pneumococcal Vaccination: 03/03/11 Review of Systems - Review of Systems Constitutional: denies: Fever EENT: denies: Throat pain Cardiovascular: denies: Chest pain Respiratory: Cough, Short of breath Gastrointestinal: denies: Abdominal pain, Diarrhea, Nausea, Vomiting Genitourinary: denies: Pain Male Genitourinary: No symptoms reported Musculoskeletal: denies: Back pain Skin: denies: Change in color Hematologic/Lymphatic: denies: Easy bleeding Neurological/Psychological: denies: Headaches Physical Exam - Vital signs Vitals: Temp Pulse Resp BP Pulse Ox 98.9 F 74 24 H 108/57 L 94 09/26/19 09:00 09/26/19 09:00 09/26/19 09:00 09/26/19 09:00 09/26/19 09:00 - General General appearance: Alert, Anxious In distress: Mild - HEENT Head: Normocephalic, Atraumatic Eyes: Normal Extraocular movements intact: Yes Pupils: PERRL Ears: Normal External canal: Normal Tympanic membrane: Normal Nasal: Normal Mouth/Lips: Normal Mucous membranes: Normal Pharynx: Normal Neck: Normal, Supple - Respiratory Respiratory status: Respiratory distress - Labored respiration, Labored Chest status: Nontender Breath sounds: Rales - Left lower lobe Chest palpation: Normal - Cardiovascular Rhythm: Regular Heart sounds: Normal auscultation - Extremities General lower extremity: Other - Left lower extremity without edema. Negative Homans. Prosthesis right lower extremity - Neurological Neuro grossly intact: Yes Cognition: Normal Orientation: AAOx4 [place] Coma Scale Eye Opening: Spontaneous [place] Coma Scale Verbal: Oriented [place] Coma Scale Motor: Obeys Commands [place] Coma Scale Total: 15 Speech: Normal - Psychological Associated symptoms: Anxious - Skin Skin Temperature: Warm Skin Moisture: Dry Skin Color: Normal Course - Re-evaluation Re-evalutation: 09/26/19 14:08 Patient with an elevated white blood cell count. Normal VBG. Reevaluation of him at this time he is resting comfortably in the room, no longer with labored respirations. He had rales in the left lower base. CT scan negative for PE but showing a bilateral pneumonia. Patient's presentation combined with a CT scan is worrisome for COVID-19. He has been swabbed and will be deemed a patient under investigation pending results. He will he also be treated with antibiotics for the pneumonia. Patient stable at this time speaking in full sentences. His O2 saturations are within normal limits. He is currently stable and appropriate for discharge and outpatient management. His PCP started this process, I advised he follow-up with him Friday by phone with his primary doctor to alert him of his progress and status. I advised the patient to be vigilant about self monitoring and should he feel any worse have any new symptoms or feel like is not getting better that he should return to the emergency department for admission. He verbalized understanding and agreement. - Vital Signs Vital signs: Temp Pulse Resp BP Pulse Ox 98.9 F 74 24 H 108/57 L 94 09/26/19 09:00 09/26/19 09:00 09/26/19 09:00 09/26/19 09:00 09/26/19 09:00 - Laboratory Result Diagrams: 09/26/19 10:02 09/26/19 10:02 Laboratory results interpreted by me: 09/26/19 09/26/19 09/26/19 10:02 10:02 10:02 WBC 12.2 H RBC 4.31 L Hgb 11.7 L Hct 35.0 L RDW 15.5 H Seg Neuts % (Manual) 82 H Lymphocytes % (Manual) 10 L Abs Neuts (Manual) 10.0 H PT 21.5 H APTT 43.2 H Glucose 137 H Discharge - Discharge Clinical Impression: Person under investigation for COVID-19 Bilateral pneumonia Qualifiers: Pneumonia type: due to unspecified organism Lung location: unspecified part of lung Qualified Code(s): J18.9 - Pneumonia, unspecified organism Condition: Stable Disposition: HOME, SELF-CARE Instructions: COVID-19 Guidance for Persons Under Investigation Additional Instructions: You are a patient under investigation for COVID-19. Please self isolate at home and quarantine until you achieve a negative result or until your 24-hour symptom-free. Please follow-up with your primary doctor regarding her status. Please return here or any ER immediately with any new, persistent or worsening symptoms. Prescriptions: Amoxicillin 1 tab PO TID #30 tab Azithromycin [Zithromax 250 mg Tablet] 250 mg PO ASDIR PRN #6 tablet PRN Reason: Referrals: KASSANDRA CARABALLO MD [Primary Care Provider] - Follow up as needed
[2019-09-26 10:45] LABS: INTERNATIONAL RATION (INR) 1.84; PROTHROMBIN TIME 21.5 SEC (11.4-15.4)
[2019-09-26 10:46] LABS: PARTIAL THROMBOPLASTIN TIME 43.2 SEC (23.5-35.8)
[2019-09-26 10:48] LABS: HEMOGLOBIN 11.7 g/dL (13.5-17.0); MEAN CORPUSCULAR HGB CONC 33.3 g/dL (32.0-36.0); MEAN CORPUSCULAR VOLUME 81 fl (80-97); PLATELET COUNT 162 10^3/uL (150-450); RED BLOOD COUNT 4.31 10^6/uL (4.35-5.55); RED CELL DISTRIBUTION WIDTH 15.5 % (11.5-14.0); WHITE BLOOD COUNT 12.2 10^3/uL (4.0-10.5)
[2019-09-26 10:55] LABS: ALBUMIN 3.9 g/dL (3.5-5.0); ALKALINE PHOSPHATASE 90 U/L (38-126); ANION GAP 8 (5-19); ASPARTATE AMINO TRANSFERASE 24 U/L (17-59); BILIRUBIN,TOTAL 0.3 mg/dL (0.2-1.3); BLOOD UREA NITROGEN 9 mg/dL (7-20); CALCIUM 9.1 mg/dL (8.4-10.2); CARBON DIOXIDE 25 mmol/L (22-30); CHLORIDE 106 mmol/L (98-107); CREATINE KINASE 72 U/L (55-170); GLUCOSE 137 mg/dL (75-110); TOTAL PROTEIN 6.8 g/dL (6.3-8.2)
[2019-09-26 11:07] LABS: NT PRO BNP 57 pg/mL (<125)
[2019-09-26 11:12] LABS: TROPONIN I < 0.012 ng/mL
[2019-09-26 11:24] LABS: ABSOLUTE LYMPHOCYTES# (MANUAL) 1.2 10^3/uL (0.5-4.7); ABSOLUTE MONOCYTES # (MANUAL) 0.9 10^3/uL (0.1-1.4); BASOPHILS % (MANUAL) 0 % (0-2); EOSINOPHILS % (MANUAL) 1 % (0-6); LYMPHOCYTES % (MANUAL) 10 % (13-45); MONOCYTES % (MANUAL) 7 % (3-13); SEGMENTED NEUTROPHILS % (MAN) 82 % (42-78); TOTAL CELLS COUNTED 100
[2019-09-26 11:25] LABS: ANISOCYTOSIS SLIGHT; PLATELET COMMENT ADEQUATE
--- NOTE | 2019-09-26 11:41 | RADIOLOGY REPORT (SQ) ---
EXAM DESCRIPTION: CTA CHEST IMAGES COMPLETED DATE/TIME: 09/26/2019 11:21 am REASON FOR STUDY: sob COMPARISON: 09/23/2019 TECHNIQUE: CT scan of the chest performed using helical scanning technique with dynamic intravenous contrast injection. Images reviewed with lung, soft tissue and bone windows. Reconstructed coronal and sagittal MPR images reviewed. Additional 3 dimensional post-processing performed to develop Maximal Intensity Projection images (AL P). All images stored on PACS. All CT scanners at this facility use dose modulation, iterative reconstruction, and/or weight based d osing when appropriate to reduce radiation dose to as low as reasonably achievable (ALARA). [facility]: Dose Right [facility]: CareDose [facility]: Dose Right [facility]: Teradose 4D [facility]: Active DSP CONTRAST TYPE AND DOSE: 100 mL Isovue 370- low osmolar. Contrast bolus not optimized for the pulmonary arteries. RENAL FUNCTION: GFR > 60. RADIATION DOSE: CT Rad equipment meets quality standard of care and radiation dose reduction techniq ues were employed. CTDIvol: 24.8 - 34.0 mGy. DLP: 1233 mGy-cm. . LIMITATIONS: None. FINDINGS: LUNGS AND PLEURA: No pneumothorax. Increasing patchy airspace disease in the left lower l obe. There is also significantly increased interstitial -centrilobular nodularity and ground-glass o pacities both lungs. No pleural effusions or pleural calcifications. AORTA AND GREAT VESSELS: No aneurysm. Contrast bolus not optimized for the aorta. HEART: No pericardial effusion. No significant coronary artery calcifications. PULMONARY ARTERIES: No emboli visualized in the main pulmonary arteries or the segmental branches. HILAR AND MEDIASTINAL STRUCTURES: Slightly enlarged nodes. HARDWARE: None in the chest. UPPER ABDOMEN: No significant findings. Limited exam. THYROID AND OTHER SOFT TISSUES: No masses. No adenopathy. BONES: No acute finding. 3D MIPS: Confirm above findings. OTHER: No other significant finding. IMPRESSION: Increasing patchy airspace disease in the left lower lobe. There is also significantly increased interstitial -centrilobular nodularity and ground-glass opacities both lungs, this could r eflect hypersensitivity pneumonitis versus developing atypical infection. No emboli visualized in the main pulmonary arteries or the segmental branches. COMMENT: Quality ID # [id number]: Final reports with documentation of one or more dose reduction techniques (e.g., Automated exposure control, adjustment of the mA and/or kV according to patient size, use of iterative reconstruction technique) TECHNICAL DOCUMENTATION: JOB ID: [id number] 2010 [employer]- All Rights Reserved Reading location - IP/workstation name: [email or web address]
[2019-09-26] MEDS ORDERED: AZITHROMYCIN INJ 500 MG VIAL IV ONE (12:06)
[2019-09-26] MEDS ORDERED: CEFTRIAXONE 1 GM/D5W RTU 1 GM/50 ML RTUPB IV ONE (12:06)
[2019-09-26] MEDS ORDERED: ALBUTEROL SULFATE HFA (90 MCG/PUFF) 8 GM MDI (1 MDI/ER DISP) IH ONE (12:15)
[2019-09-26 12:31] LABS: VENOUS BLOOD BASE EXCESS -1.5 mmol/L; VENOUS BLOOD HCO3 25.5 mmol/L (20-32); VENOUS BLOOD PCO2 52.8 mmHg (35-63); VENOUS BLOOD PH 7.3 (7.30-7.42)
[2019-09-26 14:36] VITALS: BP 130/79
--- NOTE | 2019-09-26 19:21 | EKG REPORT ---
SEVERITY:- NORMAL ECG - SINUS RHYTHM : Confirmed by: Ashley Castellanos 26-Sep-2019 19:20:45
== END 2019-09-26 14:37 | disposition home or self-care (01) ==
LOC: ER 08:55
DX: J18.9 Pneumonia, unspecified organism (principal); R06.02 Shortness of breath; Z20.828 Contact with and (suspected) exposure to other viral communicable diseases; Z86.718 Personal history of other venous thrombosis and embolism; Z79.01 Long term (current) use of anticoagulants; Z89.611 Acquired absence of right leg above knee
CPT/HCPCS: 93005; 99285; 96365; 96368; 36415; 87040; 82550; 85025; 85610; 85730; 80053; 84484; 82803; 83880; 71275; 93010; U0003; J0456; J0696; C9803; 87635

== ENCOUNTER 2019-09-28 09:29 | Emergency (ER) | payer MEDICARE, MEDICAID ==
[2019-09-28 12:14] LABS: ARTERIAL BLOOD BASE EXCESS -0.1 mmol/L; ARTERIAL BLOOD H2CO3 1.32 mmol/L (1.05-1.35); ARTERIAL BLOOD HCO3 25.2 mmol/L (20-24); ARTERIAL BLOOD O2 SATURATION 94.9 % (94-98); ARTERIAL BLOOD PCO2 43.9 mmHg (35-45); ARTERIAL BLOOD PH 7.38 (7.35-7.45); ARTERIAL BLOOD PO2 75.7 mmHg (80-100); ARTERIAL BLOOD TOTAL CO2 26.6 mmol/L (23-27)
[2019-09-28 12:21] LABS: ARTERIAL BLOOD FIO2 ROOM AIR
--- NOTE | 2019-09-28 12:22 | RADIOLOGY REPORT (SQ) ---
EXAM DESCRIPTION: CHEST SINGLE VIEW IMAGES COMPLETED DATE/TIME: 09/28/2019 11:51 am REASON FOR STUDY: SOB COMPARISON: None. EXAM PARAMETERS: NUMBER OF VIEWS: One view. TECHNIQUE: Single frontal radiographic view of the chest acquired. RADIATION DOSE: NA LIMITATIONS: Demographics mismatch warning. However, image is clearly marked in Gallito Baum is the report. FINDINGS: LUNGS AND PLEURA: No opacities, masses or pneumothorax. No pleural effusion. MEDIASTINUM AND HILAR STRUCTURES: No masses. Contour normal. HEART AND VASCULAR STRUCTURES: Heart normal in size. Normal vasculature. BONES: No acute findings. HARDWARE: None in the chest. OTHER: No other significant finding. IMPRESSION: NO ACUTE RADIOGRAPHIC FINDING IN THE CHEST. TECHNICAL DOCUMENTATION: JOB ID: [id number] 2010 [employer]- All Rights Reserved Reading location - IP/workstation name: [email or web address]
--- NOTE | 2019-09-28 13:01 | ER Document Report ---
Entered by CHER BLOCK SCRIBE 09/28/19 1123 Acting as scribe for:LANDRY NEGRON MD ED Respiratory Problem - General Chief Complaint: Shortness Of Breath Stated Complaint: COUGH/SHORTNESS OF BREATH Time Seen by Provider: 09/28/19 11:00 Primary Care Provider: KASSANDRA CARABALLO MD [Primary Care Provider] - Follow up as needed Mode of Arrival: Ambulatory Information source: Patient Notes: This 54 year old male patient presents to the emergency department today with complaints of shortness of breath. Patient was seen here on September 25 and was tested for covid but those results are not back yet. Patient had a CTA performed on September 25 with a read as follows: "Increasing patchy airspace disease in the left lower lobe. There is also si gnificantly increased interstitial centrilobular nodularity and ground-glass opacities in both lungs, this could reflect hypersensitivity pneumonitis versus developing atypical infection. No emboli visualized in the main pulmonary arteries or the segmental branches" Patient states that since his visit 2 days ago he has had an increase in his cough which is still dry, and worsened shortness of breath. Patient states he is using his 's oxygen at home which seems to help. Patient states that his shortness of breath is not worsened with exertion. Patient states he has been taking Levaquin since 09/23, amoxicillin and azithromycin since 09/25. TRAVEL OUTSIDE OF THE [place] IN LAST 30 DAYS: No - Related Data Allergies/Adverse Reactions: aripiprazole [From [employer]] Adverse Reaction (Severe, Verified 11/18/18 01:15) "uncontrollable muscle tremors" Past Medical History - General Information source: Patient - Social History Smoking Status: Never Smoker Cigarette use (# per day): No Frequency of alcohol use: None Drug Abuse: None Lives with: Spouse/Significant other Family History: Reviewed & Not Pertinent, CAD, Hypertension, Other - Past Medical History Cardiac Medical History: Reports: Hx Hypertension Pulmonary Medical History: Reports: Hx Pneumonia Endocrine Medical History: Reports: Hx Diabetes Mellitus Type 2 - Since gastric bypass has been able to stop all medications Renal/ Medical History: Reports: Hx Kidney Stones GI Medical History: Reports: Hx Gastroesophageal Reflux Disease, Hx Ulcer - 4x Musculoskeletal Medical History: Reports Hx Arthritis, Reports Hx Multiple Sclerosis Skin Medical History: Reports Hx MRSA Psychiatric Medical History: Reports: Hx Bipolar Disorder, Hx Depression Traumatic Medical History: Reports: Hx Fractures - RT ankle 2010 Infectious Medical History: Reports: Hx MRSA Past Surgical History: Reports: Hx Abdominal Surgery - Repair of complications from gastric bypass, Hx Appendectomy - 1975, Hx Bowel Surgery - bowel perforation 09/26/2015, May 2016, Hx Gastric Bypass Surgery - 02/19/13, Hx Orthopedic Surgery - Right below-knee amputation, Hx Tonsillectomy - 1978 - Immunizations Immunizations up to date: Yes Hx Diphtheria, Pertussis, Tetanus Vaccination: Yes Hx Pneumococcal Vaccination: 03/03/11 Review of Systems - Review of Systems Constitutional: denies: Fever EENT: No symptoms reported Cardiovascular: No symptoms reported Respiratory: See HPI, Cough, Short of breath, Wheezing Gastrointestinal: No symptoms reported Genitourinary: No symptoms reported Male Genitourinary: No symptoms reported Musculoskeletal: No symptoms reported Skin: No symptoms reported Hematologic/Lymphatic: No symptoms reported Neurological/Psychological: No symptoms reported -: Yes All other systems reviewed and negative Physical Exam - Vital signs Vitals: Temp Pulse Resp BP Pulse Ox 98.4 F 74 20 112/72 100 09/28/19 10:00 09/28/19 10:00 09/28/19 10:00 09/28/19 10:09/28/19 10:00 - Notes Notes: Physical Exam: General: Alert, appears anxious. HEENT: Normocephalic. Atraumatic. PERRL. Extraocular movements intact. Oropharynx clear. Neck: Supple. Non-tender. Respiratory: No respiratory distress. Clear and equal breath sounds bilaterally. Cardiovascular: Regular rate and rhythm. Abdominal: Obese. Non-tender. No distension. Normal Bowel Sounds. Back: No gross abnormalities. Extremities: Moves all four extremities. Upper extremities: Normal inspection. Normal ROM. Lower extremities: Right BKA Neurological: Normal cognition. AAOx4. Normal speech. Psychological: Anxious Skin: Warm. Dry. Normal color. Course - Re-evaluation Re-evalutation: 09/28/19 16:12 While reviewing the lab work, x-rays, previous CT scans and current knowledge about management of COVID, the patient is agreeable to going home realizing that his oxygen saturations are at the upper limits of normal on room air, and that if his COVID test come back positive tomorrow, that will not change anything about his current management. He is only to return to the hospital if he has increasing difficulty breathing. Also advised him that he does not to be need to be using his 's supplemental oxygen. While we are talking about this, and discussing the partisan politics behind some of the dishonest studies that have been promulgated concerning various treatments, I did notice the patient to nervously roll his fingers in his right hand like a Captain Quigg moment. I suspect what appeared to be hyperventilating was more most likely his anxiety. He will stop the Zithromax and amoxicillin, since his lab work, and previous CT scans are suggestive of an atypical pneumonia developing. - Vital Signs Vital signs: Temp Pulse Resp BP Pulse Ox 98.4 F 69 26 H 124/73 100 09/28/19 11:06 09/28/19 15:39 09/28/19 15:39 09/28/19 15:39 09/28/19 15:39 - Laboratory Result Diagrams: 09/28/19 14:12 09/28/19 14:55 Laboratory results interpreted by me: 09/28/19 09/28/19 11:53 14:12 Hgb 12.7 L Hct 36.7 L RDW 16.0 H ABG pO2 75.7 L ABG HCO3 25.2 H - Diagnostic Test Radiology reviewed: Image reviewed, Reports reviewed - No acute radiographic findings on chest x-ray. Discharge - Discharge Clinical Impression: Person under investigation for COVID-19 Dyspnea Qualifiers: Dyspnea type: shortness of breath Qualified Code(s): R06.02 - Shortness of breath; R06.00 - Dyspnea, unspecified; R06.01 - Orthopnea Condition: Stable Disposition: HOME, SELF-CARE Additional Instructions: Dyspnea, Nonspecific: You were evaluated for shortness of breath, or dyspnea. Dyspnea has many causes, and some are more serious than others. Sometimes it's impossible to diagnose the cause of dyspnea with the tests that are available on an emergency basis. Based on our evaluation today, you do not need hospitalization now. We found no evidence of pneumonia, collapsed lung, blood clots in the lung, tumors, or heart failure. Causes of non-specific dyspnea can include asthma or bronchospasm, hyperventilation, emotional distress, heart disease, emphysema, fibrosis of the lung, and stiffness of the chest wall. In healthy individuals with a single episode, it's sometimes reasonable to do nothing but wait to see if the problem occurs again. Additional tests used to evaluate dyspnea can include cardiac stress testing, echocardiography, pulmonary function testing, CAT scan of the chest, bronchoscopy or pulmonary biopsy. Return if shortness of breath persists or worsens, or if you develop chest pain, fever, cough, confusion, or fainting. Continue the Levaquin you are taking. Stop taking the Zithromax and amoxicillin for now. Drink plenty of fluids and get plenty of rest. The results of your COVID test should be available later tomorrow afternoon or the next day. Follow-up with your primary care provider this week if you continue to feel short of breath. RETURN TO THE EMERGENCY ROOM IF ANY NEW OR WORSENING SYMPTOMS. Referrals: KASSANDRA CARABALLO MD [Primary Care Provider] - Follow up as needed I personally performed the services described in the documentation, reviewed and edited the documentation which was dictated to the scribe in my presence, and it accurately records my words and actions.
[2019-09-28 14:33] LABS: HEMATOCRIT 36.7 % (37.9-51.0); HEMOGLOBIN 12.7 g/dL (13.5-17.0); MEAN CORPUSCULAR HGB CONC 34.6 g/dL (32.0-36.0); MEAN CORPUSCULAR VOLUME 81 fl (80-97); RED BLOOD COUNT 4.55 10^6/uL (4.35-5.55); WHITE BLOOD COUNT 8.2 10^3/uL (4.0-10.5)
[2019-09-28 15:37] LABS: ABSOLUTE LYMPHOCYTES# (MANUAL) 1.6 10^3/uL (0.5-4.7); ABSOLUTE MONOCYTES # (MANUAL) 0.7 10^3/uL (0.1-1.4); BASOPHILS % (MANUAL) 0 % (0-2); EOSINOPHILS % (MANUAL) 2 % (0-6); LYMPHOCYTES % (MANUAL) 19 % (13-45); MONOCYTES % (MANUAL) 9 % (3-13); PLATELET COMMENT ADEQUATE; SEGMENTED NEUTROPHILS % (MAN) 70 % (42-78); TOTAL CELLS COUNTED 100
[2019-09-28 15:40] LABS: BURR CELLS SLIGHT
[2019-09-28 15:41] LABS: ANISOCYTOSIS 1+; OVALOCYTES SLIGHT
[2019-09-28 15:42] VITALS: BP 124/73
[2019-09-28 15:42] LABS: ALBUMIN 4.5 g/dL (3.5-5.0); ALKALINE PHOSPHATASE 93 U/L (38-126); ANION GAP 7 (5-19); ASPARTATE AMINO TRANSFERASE 30 U/L (17-59); BILIRUBIN,TOTAL 0.4 mg/dL (0.2-1.3); BLOOD UREA NITROGEN 14 mg/dL (7-20); CALCIUM 9.9 mg/dL (8.4-10.2); CARBON DIOXIDE 28 mmol/L (22-30); CHLORIDE 104 mmol/L (98-107); GLUCOSE 95 mg/dL (75-110); POTASSIUM 4.6 mmol/L (3.6-5.0)
[2019-09-28 15:42] LABS: POLYCHROMASIA SLIGHT
[2019-09-28 15:43] LABS: PLATELET COUNT 190 10^3/uL (150-450)
== END 2019-09-28 17:00 | disposition home or self-care (01) ==
LOC: ER 09:29
DX: R06.02 Shortness of breath (principal); R05 Cough; R06.01 Orthopnea; Z20.828 Contact with and (suspected) exposure to other viral communicable diseases; I10 Essential (primary) hypertension; Z86.14 Personal history of Methicillin resistant Staphylococcus aureus infection
CPT/HCPCS: 36415; 36600; 71045; 80053; 82803; 85025; 99285

== ENCOUNTER 2019-10-10 13:16 | Emergency (ER) | payer MEDICARE, MEDICAID ==
[2019-10-10 14:25] LABS: ALKALINE PHOSPHATASE 107 U/L (38-126); ANION GAP 5 (5-19); ASPARTATE AMINO TRANSFERASE 26 U/L (17-59); BILIRUBIN,TOTAL 0.4 mg/dL (0.2-1.3); BLOOD UREA NITROGEN 12 mg/dL (7-20); CARBON DIOXIDE 26 mmol/L (22-30); CHLORIDE 108 mmol/L (98-107); CREATINE KINASE 65 U/L (55-170); GLUCOSE 132 mg/dL (75-110); POTASSIUM 4.2 mmol/L (3.6-5.0); TOTAL PROTEIN 6.9 g/dL (6.3-8.2)
[2019-10-10 14:31] LABS: HEMOGLOBIN 11.4 g/dL (13.5-17.0); MEAN CORPUSCULAR HEMOGLOBIN 27.1 pg (27.0-33.4); MEAN CORPUSCULAR HGB CONC 33.5 g/dL (32.0-36.0); MEAN CORPUSCULAR VOLUME 81 fl (80-97); PLATELET COUNT 170 10^3/uL (150-450); RED BLOOD COUNT 4.21 10^6/uL (4.35-5.55); RED CELL DISTRIBUTION WIDTH 15.8 % (11.5-14.0); WHITE BLOOD COUNT 7.3 10^3/uL (4.0-10.5)
[2019-10-10 14:37] LABS: CREATINE KINASE MB 1.35 ng/mL (<4.55)
[2019-10-10 14:38] LABS: APPEARANCE,URINE CLEAR; BILIRUBIN,URINE NEGATIVE (NEGATIVE); COLOR,URINE YELLOW; GLUCOSE, URINE NEGATIVE (NEGATIVE); KETONES,URINE NEGATIVE (NEGATIVE); LEUKOCYTE ESTERASE,URINE NEGATIVE (NEGATIVE); NITRITE,URINE NEGATIVE (NEGATIVE); PROTEIN,URINE NEGATIVE (NEGATIVE); URINE SPECIFIC GRAVITY 1.013; UROBILINOGEN,URINE NEGATIVE mg/dL (<2.0)
[2019-10-10 14:38] LABS: TROPONIN I < 0.012 ng/mL
[2019-10-10 14:52] LABS: ABSOLUTE LYMPHOCYTES# (MANUAL) 0.5 10^3/uL (0.5-4.7); ABSOLUTE MONOCYTES # (MANUAL) 0.4 10^3/uL (0.1-1.4); BASOPHILS % (MANUAL) 0 % (0-2); EOSINOPHILS % (MANUAL) 4 % (0-6); LYMPHOCYTES % (MANUAL) 7 % (13-45); MONOCYTES % (MANUAL) 6 % (3-13); SEGMENTED NEUTROPHILS % (MAN) 83 % (42-78); TOTAL CELLS COUNTED 100
[2019-10-10 14:54] LABS: ANISOCYTOSIS 1+; HYPOCHROMASIA SLIGHT; PLATELET COMMENT ADEQUATE
[2019-10-10] MEDS ORDERED: ONDANSETRON HCL INJ/PF 4 MG/2 ML SDV IV ONE (15:02)
[2019-10-10] MEDS ORDERED: MORPHINE SULFATE 10 MG/ML INJ IV ONE (15:02)
[2019-10-10] MEDS ORDERED: NORMAL SALINE 1000 ML 1,000 ML IV ONE (15:03)
--- NOTE | 2019-10-10 15:11 | EKG REPORT ---
SEVERITY:- ABNORMAL ECG - SINUS RHYTHM FIRST DEGREE AV BLOCK NONSPECIFIC ST-T CHANGES- INFERIOR LEADS : Confirmed by: Cricket Pantoja MD 10-Oct-2019 15:11:05
--- NOTE | 2019-10-10 15:21 | RADIOLOGY REPORT (SQ) ---
EXAM DESCRIPTION: CHEST SINGLE VIEW IMAGES COMPLETED DATE/TIME: 10/10/2019 3:13 pm REASON FOR STUDY: fall/neck pain/dizziness/Multiple Sclerosis COMPARISON: 09/28/2019 EXAM PARAMETERS: NUMBER OF VIEWS: One view. TECHNIQUE: Single frontal radiographic view of the chest acquired. RADIATION DOSE: NA LIMITATIONS: None. FINDINGS: LUNGS AND PLEURA: No opacities, masses or pneumothorax. No pleural effusion. MEDIASTINUM AND HILAR STRUCTURES: No masses. Contour normal. HEART AND VASCULAR STRUCTURES: Stable heart size. Normal vasculature. BONES: No acute findings. HARDWARE: None in the chest. OTHER: No other significant finding. IMPRESSION: NO ACUTE RADIOGRAPHIC FINDING IN THE CHEST. TECHNICAL DOCUMENTATION: JOB ID: [id number] 2010 [employer]- All Rights Reserved Reading location - IP/workstation name: [email or web address]
[2019-10-10 15:55] LABS: PROTHROMBIN TIME 17.3 SEC (11.4-15.4)
[2019-10-10 15:56] LABS: PARTIAL THROMBOPLASTIN TIME 42.7 SEC (23.5-35.8)
[2019-10-10 16:01] LABS: URINE AMPHETAMINES SCREEN NEGATIVE; URINE BARBITURATES SCREEN NEGATIVE; URINE BENZODIAZEPINES SCREEN NEGATIVE; URINE COCAINE SCREEN NEGATIVE; URINE MARIJUANA (THC) SCREEN NEGATIVE; URINE METHADONE SCREEN NEGATIVE; URINE PHENCYCLIDINE SCREEN NEGATIVE
--- NOTE | 2019-10-10 16:07 | RADIOLOGY REPORT (SQ) ---
EXAM DESCRIPTION: CT HEAD WITHOUT IMAGES COMPLETED DATE/TIME: 10/10/2019 3:56 pm REASON FOR STUDY: dizziness/MS/ head injury COMPARISON: CT head 02/10/2019, 12/26/2018. TECHNIQUE: Axial images acquired through the brain without intravenous contrast. Images reviewed wi th bone, brain and subdural windows. Images stored on PACS. All CT scanners at this facility use dose modulation, iterative reconstruction, and/or weight based d osing when appropriate to reduce radiation dose to as low as reasonably achievable (ALARA). [facility]: Dose Right [facility]: CareDose [facility]: Dose Right [facility]: Teradose 4D [facility]: [employer] RADIATION DOSE: CT Rad equipment meets quality standard of care and radiation dose reduction techniq ues were employed. CTDIvol: 53.2 mGy. DLP: 1097 mGy-cm. mGy. LIMITATIONS: None. FINDINGS: VENTRICLES: Normal size and contour. CEREBRUM: No mass effect. No hemorrhage. No midline shift. Normal sanches/white matter differentiatio n. No evidence for acute territorial infarction. CEREBELLUM: No mass effect. No hemorrhage. No alteration of density. No evidence for acute infarct ion. EXTRAAXIAL SPACES: No fluid collections. ORBITS AND GLOBE: Symmetrical contour of the globes. CALVARIUM: No depressed skull fracture. PARANASAL SINUSES: Mucosal thickening at the ethmoid air cells. Small mucous retention cyst/polyp at the left maxillary sinus. SOFT TISSUES: No hematoma. IMPRESSION: No acute intracranial hemorrhage or depressed calvarial fracture. EVIDENCE OF ACUTE STROKE: NO. COMMENT: Quality ID # 436: Final reports with documentation of one or more dose reduction techniques (e.g., Automated exposure control, adjustment of the mA and/or kV according to patient size, use of iterative reconstruction technique) TECHNICAL DOCUMENTATION: JOB ID: [id number] [place]-[id number] 2010 [employer]- All Rights Reserved Reading location - IP/workstation name: [email or web address]
--- NOTE | 2019-10-10 16:12 | RADIOLOGY REPORT (SQ) ---
EXAM DESCRIPTION: CT CERVICAL SPINE WITHOUT IMAGES COMPLETED DATE/TIME: 10/10/2019 3:56 pm REASON FOR STUDY: dizziness/fall/MS/Neck pain COMPARISON: CT cervical spine 12/26/2018, 12/25/2018 TECHNIQUE: Axial images acquired through the cervical spine without intravenous contrast. Images re viewed with lung, soft tissue and bone windows. Reconstructed coronal and sagittal MPR images review ed. Images stored on PACS. All CT scanners at this facility use dose modulation, iterative reconstruction, and/or weight based d osing when appropriate to reduce radiation dose to as low as reasonably achievable (ALARA). [facility]: Dose Right [facility]: CareDose [facility]: Dose Right [facility]: Teradose 4D [facility]: [employer] RADIATION DOSE: CT Rad equipment meets quality standard of care and radiation dose reduction techniq ues were employed. CTDIvol: 22.5 mGy. DLP: 530 mGy-cm. mGy. LIMITATIONS: None. FINDINGS: ALIGNMENT: There is reversal of the cervical lordosis. MINERALIZATION: Normal. VERTEBRAL BODIES: No fractures or dislocation. DISCS: Multilevel disc space narrowing with osteophytes. FACETS, LATERAL MASSES, POSTERIOR ELEMENTS: Facet arthropathy. No fractures. No dislocation. No ac laurie findings. HARDWARE: None in the spine. VISUALIZED RIBS: No fractures. LUNG APICES AND SOFT TISSUES: No significant or acute findings. IMPRESSION: No acute fracture at the cervical spine. Multilevel degenerative changes. TECHNICAL DOCUMENTATION: JOB ID: [id number] Quality ID # [id number]: Final reports with documentation of one or more dose reduction techniques (e.g., Au tomated exposure control, adjustment of the mA and/or kV according to patient size, use of iterative reconstruction technique) 2010 [employer]- All Rights Reserved Reading location - IP/workstation name: [email or web address]
[2019-10-10] MEDS ORDERED: DEXAMETHASONE SOD PHOSPHATE INJ 4 MG/1 ML VIAL IV ONE (16:58)
[2019-10-10] MEDS ORDERED: HYDROMORPHONE HCL INJ/PF 2 MG/ML AMPULE IV ONE (16:58)
[2019-10-10] MEDS ORDERED: KETOROLAC TROMETHAMINE INJ/PF 30 MG/1 ML SDV IV ONE (16:59)
--- NOTE | 2019-10-10 17:50 | ER Document Report ---
Entered by CADENCE DELATORRE SCRIBE 10/10/19 [id number] Acting as scribe for:NOA TORRES MD ED General - General Chief Complaint: Dizziness Stated Complaint: FALL/NECK PAIN Time Seen by Provider: 10/10/19 13:33 Primary Care Provider: KASSANDRA CARABALLO MD [Primary Care Provider] - Follow up as needed Information source: Patient Notes: This 54 year old male patient presents to the emergency department today with dizziness for the past x7-10 days. Patient reports intermittent dizzy spells that have gradually worsened. Patient states his dizziness is related to his MS and today was his worst dizzy spell. Patient states he fell into his dresser around 12:30 pm today and his sister found him on the ground under the dresser. Patient states he does not remember falling and has had x4 falls the past x10 days. Patient reports neck pain, headache, trouble focusing his eyes, and his left hand feels like it is asleep. Patient reports nausea and denies vomiting or injuries. TRAVEL OUTSIDE OF THE [place] IN LAST 30 DAYS: No - Related Data Allergies/Adverse Reactions: aripiprazole [From Fincon] Adverse Reaction (Severe, Verified 11/18/18 01:15) "uncontrollable muscle tremors" Past Medical History - General Information source: Patient - Social History Smoking Status: Never Smoker Cigarette use (# per day): No Family History: Reviewed & Not Pertinent, CAD, Hypertension, Other Patient has homicidal ideation: No - Past Medical History Cardiac Medical History: Reports: Hx Hypertension Pulmonary Medical History: Reports: Hx Pneumonia Endocrine Medical History: Reports: Hx Diabetes Mellitus Type 2 - Since gastric bypass has been able to stop all medications Renal/ Medical History: Reports: Hx Kidney Stones GI Medical History: Reports: Hx Gastroesophageal Reflux Disease, Hx Ulcer - 4x Musculoskeletal Medical History: Reports Hx Arthritis, Reports Hx Multiple Sclerosis Skin Medical History: Reports Hx MRSA Psychiatric Medical History: Reports: Hx Bipolar Disorder, Hx Depression Traumatic Medical History: Reports: Hx Fractures - RT ankle 2010 Infectious Medical History: Reports: Hx MRSA Past Surgical History: Reports: Hx Abdominal Surgery - Repair of complications from gastric bypass, Hx Appendectomy - 1975, Hx Bowel Surgery - bowel perforation 09/26/2015, May 2016, Hx Gastric Bypass Surgery - 02/19/13, Hx Orthopedic Surgery - Right below-knee amputation 2013, Hx Tonsillectomy - 1978 - Immunizations Immunizations up to date: Yes Hx Diphtheria, Pertussis, Tetanus Vaccination: Yes Hx Pneumococcal Vaccination: 03/03/11 Review of Systems - Review of Systems Constitutional: No symptoms reported EENT: See HPI Cardiovascular: See HPI, Dizziness Respiratory: No symptoms reported Gastrointestinal: See HPI, Nausea. denies: Vomiting Genitourinary: No symptoms reported Male Genitourinary: No symptoms reported Musculoskeletal: See HPI, Neck pain Skin: No symptoms reported Hematologic/Lymphatic: No symptoms reported Neurological/Psychological: See HPI, Headaches -: Yes All other systems reviewed and negative Physical Exam - Vital signs Vitals: Temp Pulse Resp BP Pulse Ox 98.2 F 92 19 118/76 100 10/10/19 13:28 10/10/19 13:28 10/10/19 13:28 10/10/19 13:28 10/10/19 13:28 - General General appearance: Appears well, Alert - HEENT Head: Normocephalic, Atraumatic Eyes: Normal Extraocular movements intact: Yes Pupils: PERRL Ears: Normal External canal: Normal Tympanic membrane: Normal Pharynx: Normal Notes: Paraspinal muscle of left neck is tender with palpation. - Respiratory Respiratory status: No respiratory distress Chest status: Nontender Breath sounds: Normal Chest palpation: Normal - Cardiovascular Rhythm: Regular Heart sounds: Normal auscultation Murmur: No - Abdominal Inspection: Normal Distension: No distension Bowel sounds: Normal Tenderness: Nontender - Extremities General upper extremity: Normal inspection, Nontender, Normal ROM. No: Edema General lower extremity: Normal inspection, Nontender, Normal ROM, Other - Right BKA. No: Edema - Neurological Neuro grossly intact: Yes Cognition: Normal Orientation: AAOx4 [place] Coma Scale Eye Opening: Spontaneous [place] Coma Scale Verbal: Oriented [place] Coma Scale Motor: Obeys Commands [place] Coma Scale Total: 15 Speech: Normal Cranial nerves: Normal Sensory: Normal Notes: Moves all four extremities on command and sensation is intact. Normal strength of bilateral lower extremities. - Psychological Associated symptoms: Normal affect, Normal mood - Skin Skin Temperature: Warm Skin Moisture: Dry Skin Color: Normal Course - Vital Signs Vital signs: Temp Pulse Resp BP Pulse Ox 98.2 F 78 14 135/88 H 95 10/10/19 13:28 10/10/19 16:33 10/10/19 17:01 10/10/19 17:01 10/10/19 17:01 - Laboratory Result Diagrams: 10/10/19 13:37 10/10/19 13:37 Laboratory results interpreted by me: 10/10/19 10/10/19 10/10/19 13:37 13:37 13:37 RBC 4.21 L Hgb 11.4 L Hct 34.0 L RDW 15.8 H Seg Neuts % (Manual) 83 H Lymphocytes % (Manual) 7 L PT 17.3 H APTT 42.7 H Chloride 108 H Glucose 132 H Discharge - Discharge Clinical Impression: Accidental fall, Neck pain, Dizziness, Multiple sclerosis, Spasm of cervical paraspinous muscle Condition: Stable Disposition: HOME, SELF-CARE Instructions: Dizziness ([facility]), Meclizine ([facility]), Vertigo ([facility]) Additional Instructions: Muscle Relaxers Muscle relaxing medications are usually prescribed for acute muscle spasm or injury to the neck and back. They are often combined with antiinflammatory pain medication for increased relief. You may stop the muscle relaxer when the pain and stiffness have improved. Start the medication again if spasms recur. Muscle relaxers may cause drowsiness, especially with the first dose. Do not operate machinery or drive while under the effects of the medication. Most muscle relaxers last up to 24 hours. Do not combine the medication with alcohol.Muscle Strain You have strained a muscle -- torn the fibers within the muscle. This often occurs with strenuous exertion, or during an injury that suddenly stretches the muscle. The seriousness of a strain varies. Some strains heal within days, others cause problems for months. X-rays cannot show a muscle strain. X-rays are taken only if symptoms suggest that a fracture could be present. The usual treatment of a muscle strain is rest and ice packs. Sometimes, a sling, splint, or crutches may be necessary to rest the muscle. The muscle can be used again once pain subsides. Severe strains require a special exercise and stretching program to prevent permanent stiffness and disability. Your doctor will advise you if this will be necessary. Call the doctor immediately if pain or swelling becomes severe, or if numbness or discoloration develop.Dizziness Under normal circumstances, your sense of balance is controlled by a number of signals that your brain receives from several locations: Eyes. No matter what your position, visual signals help you determine where your body is in space and how it's moving. Sensory nerves. These are in your skin, muscles and joints. Sensory nerves send messages to your brain about body movements and positions. Inner ear. The organ of balance in your inner ear is the vestibular labyrinth. It includes loop-shaped structures (semicircular canals) that contain fluid and fine, hair-like sensors that monitor the rotation of your head. Near the semicircular canals are the utricle and saccule, which contain tiny particles called otoconia (d-[id number]-[id number]-uh). These particles are attached to sensors that help detect gravity and suqj-hms-xwhjx motion. Good balance depends on at least two of these three sensory systems working well. For instance, closing your eyes while washing your hair in the shower doesn't mean you'll lose your balance. Signals from your inner ear and sensory nerves help keep you upright. However, if your central nervous system can't process signals from all of these locations, if the messages are contradictory, or if the sensory systems aren't functioning properly, you may experience loss of balance. Dizziness may have a number of potential causes. These may include: Vertigo Vertigo - the false sense of motion or spinning - is the most common symptom of dizziness. Sitting up or moving around may make it worse. Sometimes vertigo is severe enough to cause nausea and vomiting. Vertigo usually results from a problem with the nerves and the structures of the balance mechanism in your inner ear (vestibular system), which sense movement and changes in your head position. Abnormal rhythmic eye movements (nystagmus) almost always accompany vertigo. Causes of vertigo may include: Benign paroxysmal positional vertigo (BPPV). BPPV involves intense, brief episodes of vertigo associated with a change in the position of your head, often when you turn over in bed or sit up in the morning. It occurs when normal calcium carbonate crystals (otoconia) break loose and fall into the wrong part of the canals in your inner ear. When these particles shift, they stimulate sensors in your ear, producing an episode of vertigo. Doctors don't know what causes BPPV, but it may be a natural result of aging. Trauma to your head also may lead to BPPV. Inflammation in the inner ear. Signs and symptoms of inflammation of the inner ear (acute vestibular neuronitis or labyrinthitis) include sudden, intense vertigo that may persist for several days, with nausea and vomiting. It can be incapacitating, requiring bed rest to minimize the signs and symptoms. Fortunately, vestibular neuronitis generally subsides and clears up on its own. Recovery time may be shorter with vestibular rehabilitation exercises. Although the cause of this condition is unknown, it may be a viral infection. Meniere's disease. This disease involves the excessive buildup of fluid in your inner ear. It may affect adults at any age and is characterized by sudden episodes of vertigo lasting 30 minutes to an hour or longer. Other signs and symptoms include the feeling of fullness in your ear, buzzing or ringing in your ear (tinnitus), and fluctuating hearing loss. The cause of Meniere's disease is unknown. Vestibular migraine. People who experience a vestibular migraine are very sensitive to motion. Dizziness and vertigo caused by a vestibular migraine may be triggered by turning your head quickly, being in a crowded or confusing place, driving or riding in a vehicle, or even watching movement on TV. A vestib ular migraine may cause feelings of imbalance or unsteadiness, hearing loss, "muffled" hearing, or ringing in your ears (tinnitus). For most people with a vestibular migraine, vertigo doesn't necessarily happen at the same time as the headache. Instead, typical migraine triggers may lead to vertigo without an actual migraine. Attacks of migrainous vertigo can last from a few minutes to several days. Acoustic neuroma. An acoustic neuroma (schwannoma) is a noncancerous (benign) growth on the acoustic nerve, which connects the inner ear to your brain. Signs and symptoms of an acoustic neuroma may include dizziness, loss of balance, hearing loss and tinnitus. Rapid changes in motion. Riding on roller coasters or in boats, cars or even airplanes may on occasion make you dizzy. Other causes. Rarely, vertigo can be a symptom of a more serious neurological problem such as a stroke, brain hemorrhage or multiple sclerosis. Feeling of faintness (presyncope) "Presyncope" is the medical term for feeling faint and lightheaded without losing consciousness. Sometimes nausea, pale skin and a sense of dizziness accompany a feeling of faintness. Causes of presyncope include: Drop in blood pressure (orthostatic hypotension). A dramatic drop in your systolic blood pressure - the higher number in your blood pressure reading - may result in lightheadedness or a feeling of faintness. It can occur after sitting up or standing too quickly. Inadequate output of blood from the heart. Conditions such as partially blocked arteries (atherosclerosis), disease of the heart muscle (cardiomyopathy), abnormal heart rhythm (arrhythmia) or a decrease in blood volume may cause inadequate blood flow from your heart. Loss of balance (disequilibrium) Disequilibrium is the loss of balance or the feeling of unsteadiness when you walk. Causes may include: Inner ear (vestibular) problems. Abnormalities with your inner ear can cause you to feel like you are floating, have a heavy head or are unsteady in the dark. Sensory disorders. Failing vision and nerve damage in your legs (peripheral neuropathy) are common in older adultsand may result in difficulty maintaining your balance. Joint and muscle problems. Muscle weakness and osteoarthritis - the type of arthritis that involves wear and tear of your joints - can contribute to loss of balance when it involves your weight-bearing joints. Medications. Loss of balance can be a side effect of certain medications, s uch as anti-seizure drugs, sedatives and tranquilizers. Lightheadedness and other kinds of 'dizziness' Feeling lightheaded is the feeling of being "spaced out" or having the sensation of spinning inside your head. It can also give you the sensation that if your lightheadedness worsens, you might lose consciousness. Causes may include: Inner ear disorders. These abnormalities of your inner ear can lead to illusions of motion and make you feel like you're floating. Anxiety disorders. Certain anxiety disorders, such as panic attacks and a fear of leaving home or being in large, open spaces (agoraphobia), may cause lightheadedness. Hyperventilation. Abnormally rapid breathing that often accompanies anxiety disorders may make you feel lightheaded. Prescriptions: Baclofen [Baclofen 10 mg Tablet] 10 mg PO QHS PRN #10 tablet PRN Reason: prn muscle spasm Tramadol HCl [Ultram 50 mg Tablet] 50 mg PO Q4HP PRN #12 tab PRN Reason: Meclizine HCl [Antivert 25 mg Tablet] 25 mg PO TID PRN #21 tablet PRN Reason: Methylprednisolone [Medrol Dosepack (4 mg/Tab) 21 Tab/Dosepak] 4 mg PO ASDIR #21 tab.ds.pk Referrals: KASSANDRA CARABALLO MD [Primary Care Provider] - Follow up as needed I personally performed the services described in the documentation, reviewed and edited the documentation which was dictated to the scribe in my presence, and it accurately records my words and actions.
[2019-10-10 19:48] VITALS: BP 131/79
--- NOTE | 2019-10-12 19:39 | EKG REPORT ---
SEVERITY:- ABNORMAL ECG - SINUS RHYTHM FIRST DEGREE AV BLOCK : Confirmed by: Sourav Chatman MD 12-Oct-2019 19:38:38
== END 2019-10-10 19:48 | disposition home or self-care (01) ==
LOC: ER 13:16
DX: G35 Multiple sclerosis (principal); R42 Dizziness and giddiness; M54.2 Cervicalgia; M62.838 Other muscle spasm; W18.30XA Fall on same level, unspecified, initial encounter; Z91.81 History of falling
CPT/HCPCS: 93005; 99284; 96361; 96374; 96375; 36415; 82553; 82550; 85025; 85610; 85730; 80053; 81001; 84484; 80307; 71045; 70450; 72125; 93010; J1100; J1885; J2270; J1170; J2405; J7030

== ENCOUNTER 2019-10-12 11:14 | Observation (INO) | payer MEDICARE, MEDICAID ==
[2019-10-12] MEDS ORDERED: IPRATROPIUM/ALBUTEROL 0.5-2.5 MG/3 ML AMPUL NEB ONE (11:30)
--- NOTE | 2019-10-12 11:37 | ER Document Report ---
ED Medical Screen (RME) - General Chief Complaint: Dizziness Stated Complaint: DIZZINESS Time Seen by Provider: 10/12/19 11:15 Primary Care Provider: KASSANDRA PRESTON MD [Primary Care Provider] - Follow up as needed TRAVEL OUTSIDE OF THE [place] IN LAST 30 DAYS: No - HPI Notes: 10/12/19 11:27 54-year-old male with a history of MS, hypertension, chronic DVT on Xarelto, gastric bypass surgery presents to the emergency room via EMS from Dr. Preston's office for shortness of breath on exertion for the last month. Patient had left lower lobe pneumonia and was treated with antibiotics, his doctor is concerned that he may have interstitial lung disease and wanted him to be evaluated since his shortness of breath has not improved over the last month. patient does not wear oxygen at home. He is 97% on room air. Patient also states that he has increasing weakness. Denies any new medications foods or travel. Has been tested multiple times for COVID which has been negative. Denies any chest pain, nausea vomiting or diarrhea. No fevers or chills. PHYSICAL EXAMINATION: Vital signs reviewed. GENERAL: Chronically ill well-nourished and in no acute distress. HEAD: Atraumatic, normocephalic. NECK: Normal range of motion CV: Heart regular rate and rhythm LUNGS: Slight wheezing in upper lobes Musculoskeletal: Normal range of motion NEUROLOGICAL: Normal speech PSYCH: Normal mood, normal affect. MDM: Patient seen and examined for rapid initial assessment. Vital signs reviewed. A comprehensive ED assessment and evaluation of the patient, analysis of test res ults and completion of the medical decision making process will be conducted by additional ED providers. *Note is created using voice recognition software and may contain spelling, syntax or grammatical errors. - Related Data Allergies/Adverse Reactions: aripiprazole [From Abilify] Adverse Reaction (Severe, Verified 11/18/18 01:15) "uncontrollable muscle tremors" Past Medical History - Past Medical History Cardiac Medical History: Reports: Hx Hypertension Denies: Hx Coronary Artery Disease, Hx Heart Attack, Hx Heart Murmur Pulmonary Medical History: Reports: Hx Pneumonia Denies: Hx Asthma, Hx Bronchitis, Hx COPD Neurological Medical History: Denies: Hx Cerebrovascular Accident, Hx Seizures, Hx Parkinson's Disease Endocrine Medical History: Reports: Hx Diabetes Mellitus Type 2 - Since gastric bypass has been able to stop all medications Renal/ Medical History: Reports: Hx Kidney Stones. Denies: Hx Peritoneal Dialysis GI Medical History: Reports: Hx Gastroesophageal Reflux Disease, Hx Ulcer - 4x. Denies: Hx Pancreatitis Musculoskeltal Medical History: Reports Hx Arthritis, Reports Hx Multiple Sclerosis, Denies Hx Systemic Lupus Erythematosus Skin Medical History: Reports Hx MRSA Psychiatric Medical History: Reports: Hx Bipolar Disorder, Hx Depression Traumatic Medical History: Reports: Hx Fractures - RT ankle 2010 Infectious Medical History: Reports: Hx MRSA Past Surgical History: Reports: Hx Abdominal Surgery - Repair of complications from gastric bypass, Hx Appendectomy - 1975, Hx Bowel Surgery - bowel perforation 09/26/2015, May 2016, Hx Gastric Bypass Surgery - 02/19/13, Hx Orthopedic Surgery - Right below-knee amputation 2013, Hx Tonsillectomy - 1978 - Immunizations Immunizations up to date: Yes Hx Diphtheria, Pertussis, Tetanus Vaccination: Yes Physical Exam - Vital signs Vitals: Temp Pulse Resp BP Pulse Ox 98.5 F 71 24 H 158/98 H 97 10/12/19 11:23 10/12/19 11:23 10/12/19 11:23 10/12/19 11:23 10/12/19 11:23 Course - Vital Signs Vital signs: Temp Pulse Resp BP Pulse Ox 98.5 F 71 24 H 158/98 H 97 10/12/19 11:23 10/12/19 11:23 10/12/19 11:23 10/12/19 11:23 10/12/19 11:23 Doctor's Discharge - Discharge Referrals: KASSANDRA PRESTON MD [Primary Care Provider] - Follow up as needed
--- NOTE | 2019-10-12 12:09 | RADIOLOGY REPORT (SQ) ---
EXAM DESCRIPTION: CHEST SINGLE VIEW IMAGES COMPLETED DATE/TIME: 10/12/2019 11:53 am REASON FOR STUDY: sob, weakness COMPARISON: 10/10/2019. EXAM PARAMETERS: NUMBER OF VIEWS: One view. TECHNIQUE: Single frontal radiographic view of the chest acquired. RADIATION DOSE: NA LIMITATIONS: None. FINDINGS: LUNGS AND PLEURA: No opacities, masses or pneumothorax. No pleural effusion. MEDIASTINUM AND HILAR STRUCTURES: No masses. Contour normal. HEART AND VASCULAR STRUCTURES: Heart upper limits of normal in size. Normal vasculature. BONES: No acute findings. HARDWARE: None in the chest. OTHER: No other significant finding. IMPRESSION: NO ACUTE RADIOGRAPHIC FINDING IN THE CHEST. TECHNICAL DOCUMENTATION: JOB ID: [id number] 2010 [employer]- All Rights Reserved Reading location - IP/workstation name: [email or web address]
[2019-10-12 12:25] LABS: HEMATOCRIT 34.9 % (37.9-51.0); HEMOGLOBIN 11.6 g/dL (13.5-17.0); MEAN CORPUSCULAR HEMOGLOBIN 26.9 pg (27.0-33.4); MEAN CORPUSCULAR HGB CONC 33.1 g/dL (32.0-36.0); MEAN CORPUSCULAR VOLUME 81 fl (80-97); PLATELET COUNT 208 10^3/uL (150-450); RED BLOOD COUNT 4.31 10^6/uL (4.35-5.55); RED CELL DISTRIBUTION WIDTH 15.6 % (11.5-14.0); WHITE BLOOD COUNT 8.4 10^3/uL (4.0-10.5)
[2019-10-12 12:28] LABS: APPEARANCE,URINE CLEAR; BILIRUBIN,URINE NEGATIVE (NEGATIVE); COLOR,URINE YELLOW; GLUCOSE, URINE NEGATIVE (NEGATIVE); KETONES,URINE NEGATIVE (NEGATIVE); LEUKOCYTE ESTERASE,URINE NEGATIVE (NEGATIVE); NITRITE,URINE NEGATIVE (NEGATIVE); PROTEIN,URINE NEGATIVE (NEGATIVE); URINE SPECIFIC GRAVITY 1.011; UROBILINOGEN,URINE NEGATIVE mg/dL (<2.0)
[2019-10-12 12:44] LABS: ABSOLUTE LYMPHOCYTES# (MANUAL) 0.9 10^3/uL (0.5-4.7); ABSOLUTE MONOCYTES # (MANUAL) 0.3 10^3/uL (0.1-1.4); BAND NEUTROPHILS % (MANUAL) 3 % (3-5); BASOPHILS % (MANUAL) 0 % (0-2); EOSINOPHILS % (MANUAL) 1 % (0-6); LYMPHOCYTES % (MANUAL) 9 % (13-45); MONOCYTES % (MANUAL) 4 % (3-13); SEGMENTED NEUTROPHILS % (MAN) 81 % (42-78); TOTAL CELLS COUNTED 100
[2019-10-12 12:45] LABS: ANISOCYTOSIS SLIGHT; PLATELET COMMENT ADEQUATE
[2019-10-12 12:52] LABS: ALBUMIN 4.3 g/dL (3.5-5.0); ALKALINE PHOSPHATASE 105 U/L (38-126); ANION GAP 7 (5-19); ASPARTATE AMINO TRANSFERASE 25 U/L (17-59); BILIRUBIN,TOTAL 0.4 mg/dL (0.2-1.3); BLOOD UREA NITROGEN 10 mg/dL (7-20); CALCIUM 9.1 mg/dL (8.4-10.2); CARBON DIOXIDE 25 mmol/L (22-30); CHLORIDE 106 mmol/L (98-107); GLUCOSE 129 mg/dL (75-110); POTASSIUM 4.7 mmol/L (3.6-5.0); TOTAL PROTEIN 7.6 g/dL (6.3-8.2)
[2019-10-12] MEDS ORDERED: MORPHINE SULFATE 10 MG/ML INJ IV ONE (14:11)
--- NOTE | 2019-10-12 14:19 | RADIOLOGY REPORT (SQ) ---
EXAM DESCRIPTION: CTA CHEST IMAGES COMPLETED DATE/TIME: 10/12/2019 2:03 pm REASON FOR STUDY: sob/cp COMPARISON: Chest x-ray dated 10/12/2019. Chest CTA dated 09/26/2019. TECHNIQUE: CT scan of the chest performed using helical scanning technique with dynamic intravenous contrast injection. Images reviewed with lung, soft tissue and bone windows. Reconstructed coronal and sagittal MPR images reviewed. Additional 3 dimensional post-processing performed to develop Maximal Intensity Projection images (TX P). All images stored on PACS. All CT scanners at this facility use dose modulation, iterative reconstruction, and/or weight based d osing when appropriate to reduce radiation dose to as low as reasonably achievable (ALARA). [facility]: Dose Right [facility]: CareDose [facility]: Dose Right [facility]: Teradose 4D [facility]: IFMR [employer] CONTRAST TYPE AND DOSE: contrast/concentration: Isovue 350.00 mmol/ml; Total Contrast Delivered: 75. 0 ml; Total Saline Delivered: 70.0 ml Contrast bolus adequate for pulmonary arteries and aorta. RENAL FUNCTION: BUN 10 creatinine 0.83. RADIATION DOSE: CT Rad equipment meets quality standard of care and radiation dose reduction techniq ues were employed. CTDIvol: 19.8 - 35.6 mGy. DLP: 1375 mGy-cm. . LIMITATIONS: None. FINDINGS: LUNGS AND PLEURA: Diffuse hazy ground-glass opacities throughout both lungs. More focal a irspace disease in the left lower lobe. Small pleural effusions. AORTA AND GREAT VESSELS: No aneurysm. No dissection. HEART: No pericardial effusion. No significant coronary artery calcifications. PULMONARY ARTERIES: No emboli visualized in the main pulmonary arteries or the segmental branches. HILAR AND MEDIASTINAL STRUCTURES: No identified masses or abnormal nodes. HARDWARE: None in the chest. UPPER ABDOMEN: No significant findings. Limited exam. THYROID AND OTHER SOFT TISSUES: No masses. No adenopathy. BONES: No acute or significant finding. 3D MIPS: Confirm above findings. OTHER: No other significant finding. IMPRESSION: NORMAL CTA OF THE CHEST. NO PULMONARY EMBOLI. DIFFUSE AIRSPACE DISEASE, SOMEWHAT MORE FOCAL IN THE LEFT LOWER LOBE, AND SMALL PLEURAL EFFUSIONS. COMMENT: Quality ID # [id number]: Final reports with documentation of one or more dose reduction techniques (e.g., Automated exposure control, adjustment of the mA and/or kV according to patient size, use of iterative reconstruction technique) TECHNICAL DOCUMENTATION: JOB ID: [id number] 2010 [employer]- All Rights Reserved Reading location - IP/workstation name: [email or web address]
[2019-10-12 14:30] LABS: VENOUS BLOOD BASE EXCESS -2.1 mmol/L; VENOUS BLOOD HCO3 24.2 mmol/L (20-32); VENOUS BLOOD PCO2 48.1 mmHg (35-63); VENOUS BLOOD PH 7.32 (7.30-7.42)
[2019-10-12] MEDS ORDERED: AZITHROMYCIN 250 MG TABLET PO ONE (14:54)
[2019-10-12] MEDS ORDERED: CEFTRIAXONE 2 GM/D5W RTU 2 GM/50 ML RTUPB IV ONE (14:54)
--- NOTE | 2019-10-12 15:06 | ER Document Report ---
ED General - General Chief Complaint: Shortness Of Breath Stated Complaint: DIZZINESS Time Seen by Provider: 10/12/19 11:15 Primary Care Provider: KASSANDRA PRESTON MD [Primary Care Provider] - Follow up as needed TRAVEL OUTSIDE OF THE [place] IN LAST 30 DAYS: No - HPI Notes: Patient states she has had cough and shortness of breath for approximately 10 days to 2 weeks. He states he recently saw his primary care provider, Dr. Preston. He states he was given a 10-day course of Levaquin but he continues to have shortness of breath and cough. He also states that he was tested for COVID and the test was negative. He states the labor economics professor wrote on the bottom of the test however, that they were suspicious for a false positive. Patient states he also has multiple sclerosis. He states he has some neck pain from a recent fall. This pain is constant. Is moderate in intensity. Is worse movement of his neck and better with rest. No significant radiation of this pain. He denies any fevers. No known covert virus exposures. He was seen in the office today at his primary care doctor's office and referred to the emergency department. - Related Data Allergies/Adverse Reactions: aripiprazole [From [facility]il[facility]] Adverse Reaction (Severe, Verified 10/12/19 12:29) "uncontrollable muscle tremors" Past Medical History - General Information source: Patient - Social History Smoking Status: Never Smoker Frequency of alcohol use: None Drug Abuse: None Family History: Reviewed & Not Pertinent, CAD, Hypertension, Other - Past Medical History Cardiac Medical History: Reports: Hx Hypertension Denies: Hx Coronary Artery Disease, Hx Heart Attack, Hx Heart Murmur Pulmonary Medical History: Reports: Hx Pneumonia Denies: Hx Asthma, Hx Bronchitis, Hx COPD Neurological Medical History: Denies: Hx Cerebrovascular Accident, Hx Seizures, Hx Parkinson's Disease Endocrine Medical History: Reports: Hx Diabetes Mellitus Type 2 - Since gastric bypass has been able to stop all medications Renal/ Medical History: Reports: Hx Kidney Stones. Denies: Hx Peritoneal Dialysis GI Medical History: Reports: Hx Gastroesophageal Reflux Disease, Hx Ulcer - 4x. Denies: Hx Pancreatitis Musculoskeletal Medical History: Reports Hx Arthritis, Reports Hx Multiple Sclerosis, Denies Hx Systemic Lupus Erythematosus Skin Medical History: Reports Hx MRSA Psychiatric Medical History: Reports: Hx Bipolar Disorder, Hx Depression Traumatic Medical History: Reports: Hx Fractures - RT ankle 2010 Infectious Medical History: Reports: Hx MRSA Past Surgical History: Reports: Hx Abdominal Surgery - Repair of complications from gastric bypass, Hx Appendectomy - 1975, Hx Bowel Surgery - bowel perforation 09/26/2015, May 2016, Hx Gastric Bypass Surgery - 02/19/13, Hx Orthopedic Surgery - Right below-knee amputation 2013, Hx Tonsillectomy - 1978 - Immunizations Immunizations up to date: Yes Hx Diphtheria, Pertussis, Tetanus Vaccination: Yes Hx Pneumococcal Vaccination: 03/03/11 Review of Systems - Review of Systems Constitutional: Malaise, Weakness. denies: Chills Cardiovascular: denies: Chest pain, Palpitations Respiratory: Cough, Short of breath -: Yes All other systems reviewed and negative Physical Exam - Vital signs Vitals: Temp Pulse Resp BP Pulse Ox 98.5 F 71 24 H 158/98 H 97 10/12/19 11:23 10/12/19 11:23 10/12/19 11:23 10/12/19 11:23 10/12/19 11:23 Interpretation: Normal - General General appearance: Appears well, Alert In distress: None - HEENT Head: Normocephalic, Atraumatic Eyes: Normal Pupils: PERRL - Respiratory Respiratory status: No respiratory distress Chest status: Nontender Breath sounds: Normal Chest palpation: Normal - Cardiovascular Rhythm: Regular Heart sounds: Normal auscultation Murmur: No - Abdominal Inspection: Normal Distension: No distension Bowel sounds: Normal Tenderness: Nontender Organomegaly: No organomegaly - Back Back: Normal, Nontender - Extremities General upper extremity: Normal inspection, Nontender, Normal color, Normal ROM, Normal temperature General lower extremity: Nontender, Normal color, Normal ROM, Normal temperature. No: Lilly's sign - Neurological Neuro grossly intact: Yes Cognition: Normal Orientation: AAOx4 Merkel Coma Scale Eye Opening: Spontaneous Merkel Coma Scale Verbal: Oriented [place] Coma Scale Motor: Obeys Commands [place] Coma Scale Total: 15 Speech: Normal Motor strength normal: LUE, RUE, LLE, RLE Sensory: Normal - Psychological Associated symptoms: Normal affect, Normal mood - Skin Skin Temperature: Warm Skin Moisture: Dry Skin Color: Normal Course - Re-evaluation Re-evalutation: 10/12/19 15:04 Patient presents with a complaint of shortness of breath and chronic cough. He states he was recently diagnosed with pneumonia and finished a 10-day course of Levaquin but this continues. I did call and discussed the case with his primary care physician, Dr. Preston. Dr. Preston states that he recommends the patient be admitted due to persistent shortness of breath, tachypnea, hypoxia in his office, and failing outpatient therapy. Patient CT scan does show some interstitial disease worse in the left lower lobe which is the apparent site of the recent pneumonia. Patient has no evidence of pulmonary embolism or pulmonary edema. He has no known covert virus exposures but given his suspect history we will retest for this. - Vital Signs Vital signs: Temp Pulse Resp BP Pulse Ox 98.5 F 71 25 H 136/83 H 97 10/12/19 11:23 10/12/19 11:23 10/12/19 14:36 10/12/19 14:36 10/12/19 14:36 - Laboratory Result Diagrams: 10/12/19 12:13 10/12/19 12:13 Laboratory results interpreted by me: 10/12/19 10/12/19 12:13 12:13 RBC 4.31 L Hgb 11.6 L Hct 34.9 L MCH 26.9 L RDW 15.6 H Seg Neuts % (Manual) 81 H Lymphocytes % (Manual) 9 L Glucose 129 H - Diagnostic Test Radiology reviewed: Image reviewed, Reports reviewed Discharge - Discharge Clinical Impression: Failure of outpatient treatment, Demyelinating disease, Person under investigation for COVID-19 Left lower lobe pneumonia Qualifiers: Pneumonia type: due to unspecified organism Qualified Code(s): J18.9 - Pneumonia, unspecified organism Condition: Serious Disposition: ADMITTED INPATIENT Admitting Provider: Paulo (Hospitalist) Unit Admitted: Telemetry Referrals: KASSANDRA PRESTON MD [Primary Care Provider] - Follow up as needed
[2019-10-12] MEDS ORDERED: IPRATROPIUM/ALBUTEROL 0.5-2.5 MG/3 ML AMPUL NEB PRN (15:45)
[2019-10-12] MEDS ORDERED: ONDANSETRON HCL INJ/PF 4 MG/2 ML SDV IV PRN (15:45)
--- NOTE | 2019-10-12 16:00 | PDOC H&P ---
History of Present Illness Admission Date/PCP: 10/12/19 15:39 KASSANDRA CARABALLO MD Patient complains of: Shortness of breath associated with rapid breathing History of Present Illness: YESSY ALMODOVAR is a 54 year old male With history of multiple sclerosis, right BKA, bipolar disorder came to the emergency room with complaints of shortness of breath associated with rapid breathing for the last few days. He was treated with outpatient levofloxacin as an outpatient he finished 10 days course not getting better and he went to see his primary care physician Dr. Caraballo as per his recommendations came to the ER for further evaluation. As per the patient he was tested twice for COVID the last 1 month came back negative. Work-up in the ER entirely negative. With minimal activity respiratory rate going up to 25. CT of the chest is negative. ER physician requested for repeat COVID at this time. Patient agreed to stay in the hospital for further management. Past Medical History Cardiac Medical History: Reports: Hypertension Denies: Coronary Artery Disease, Myocardial Infarction, Heart Murmur Pulmonary Medical History: Reports: Pneumonia Denies: Asthma, Bronchitis, Chronic Obstructive Pulmonary Disease (COPD) EENT Medical History: Reports: None Neurological Medical History: Reports: None Denies: Seizures Endocrine Medical History: Reports: Diabetes Mellitus Type 2 - Since gastric bypass has been able to stop all medications Renal/ Medical History: Reports: None Malignancy Medical History: Reports: None GI Medical History: Reports: None, Gastroesophageal Reflux Disease Musculoskeltal Medical History: Reports: Arthritis Skin Medical History: Reports: None Psychiatric Medical History: Reports: Bipolar Disorder, Depression Hematology: Reports: Anemia Infectious Medical History: Reports: Methicillin-Resistant Staph Aureus Past Surgical History Past Surgical History: Reports: Appendectomy - 1975, Gastric Bypass Surgery - 02/19/13, Orthopedic Surgery - Right below-knee amputation 2013, Tonsillectomy - 1978 Social History Information Source: Patient Smoking Status: Never Smoker Frequency of Alcohol Use: None Hx Recreational Drug Use: No - Unknown Drugs: None Hx Prescription Drug Abuse: No - Advance Directive Resuscitation Status: Full Code Family History Family History: Reviewed & Not Pertinent, CAD, Hypertension, Other Parental Family History Reviewed: Yes Children Family History Reviewed: Yes Sibling(s) Family History Reviewed.: Yes Medication/Allergy Home Medications: Gabapentin [Neurontin 300 mg Capsule] 300 mg PO Q8 02/11/19 Olanzapine [Zyprexa 5 mg Tablet] 5 mg PO DAILY 02/11/19 Ranitidine HCl [Zantac] 150 mg PO DAILY 02/11/19 Rivaroxaban [Xarelto] 20 mg PO DAILY 02/11/19 Topiramate [Topamax] 50 mg PO Q12 02/11/19 Diazepam 10 mg PO Q12HP PRN 02/12/19 Escitalopram Oxalate [Lexapro 10 mg Tablet] 20 mg PO DAILY 02/12/19 Multivitamin [Tab-A-Kylie (Multiple Vitamin) Tablet] 1 tab PO DAILY 02/12/19 Promethazine HCl [Phenergan 25 mg Tablet] 25 mg PO Q12HP PRN 02/12/19 Tramadol HCl [Ultram 50 mg Tablet] 50 mg PO Q8HP PRN 02/12/19 Amoxicillin 1 tab PO TID #30 tab 09/26/19 Azithromycin [Zithromax 250 mg Tablet] 250 mg PO ASDIR PRN #6 tablet 09/26/19 Baclofen [Baclofen 10 mg Tablet] 10 mg PO QHS PRN #10 tablet 10/10/19 Meclizine HCl [Antivert 25 mg Tablet] 25 mg PO TID PRN #21 tablet 10/10/19 Methylprednisolone [Medrol Dosepack (4 mg/Tab) 21 Tab/Dosepak] 4 mg PO ASDIR #21 tab.ds.pk 10/10/19 Tramadol HCl [Ultram 50 mg Tablet] 50 mg PO Q4HP PRN #12 tab 10/10/19 Allergies/Adverse Reactions: aripiprazole [From [facility]] Adverse Reaction (Severe, Verified 10/12/19 12:29) "uncontrollable muscle tremors" Review of Systems Constitutional: ABSENT: fever(s), headache(s) Eyes: ABSENT: visual disturbances Ears: ABSENT: hearing changes Nose, Mouth, and Throat: ABSENT: sore throat Respiratory: PRESENT: dyspnea, other - Tachypnea. ABSENT: hemoptysis Gastrointestinal: ABSENT: diarrhea, dysphagia Integumentary: ABSENT: rash, wounds Neurological: ABSENT: abnormal gait, abnormal speech, confusion, dizziness, focal weakness, syncope Psychiatric: ABSENT: anxiety, depression, homidical ideation, suicidal ideation Physical Exam Vital Signs: Temp Pulse Resp BP Pulse Ox 98.3 F 71 19 150/90 H 98 10/12/19 15:26 10/12/19 11:23 10/12/19 15:26 10/12/19 15:02 10/12/19 15:26 Intake & Output 10/11/19 10/12/19 10/13/19 06:59 06:59 06:59 Weight 136.078 kg General appearance: PRESENT: no acute distress, morbidly obese Head exam: PRESENT: atraumatic Eye exam: PRESENT: PERRLA Ear exam: PRESENT: normal external ear exam Mouth exam: PRESENT: neck supple Teeth exam: PRESENT: poor dentation Neck exam: ABSENT: carotid bruit, JVD, lymphadenopathy, thyromegaly Respiratory exam: PRESENT: decreased breath sounds Cardiovascular exam: PRESENT: RRR. ABSENT: diastolic murmur, rubs, systolic murmur GI/Abdominal exam: PRESENT: normal bowel sounds, soft. ABSENT: distended, guarding, mass, organolmegaly, rebound, tenderness Rectal exam: PRESENT: deferred Extremities exam: PRESENT: other - Right BKA Neurological exam: PRESENT: alert, awake, oriented to person, oriented to place, oriented to time, oriented to situation, CN II-XII grossly intact. ABSENT: motor sensory deficit Psychiatric exam: PRESENT: appropriate affect, normal mood. ABSENT: homicidal ideation, suicidal ideation Results Laboratory Results: 10/12/19 12:13 10/12/19 12:13 10/12/19 10/12/19 10/12/19 12:13 12:13 12:13 WBC 8.4 RBC 4.31 L Hgb 11.6 L Hct 34.9 L MCV 81 MCH 26.9 L MCHC 33.1 RDW 15.6 H Plt Count 208 Seg Neutrophils % Not Reportable VBG pH VBG pCO2 VBG HCO3 VBG Base Excess Sodium 137.7 Potassium 4.7 Chloride 106 Carbon Dioxide 25 Anion Gap 7 BUN 10 Creatinine 0.83 Est GFR ( Amer) > 60 Glucose 129 H Lactic Acid Calcium 9.1 Total Bilirubin 0.4 AST 25 Alkaline Phosphatase 105 Total Protein 7.6 Albumin 4.3 Urine Color YELLOW Urine Appearance CLEAR Urine pH 7.0 Ur Specific [place] 1.011 Urine Protein NEGATIVE Urine Glucose (UA) NEGATIVE Urine Ketones NEGATIVE Urine Blood NEGATIVE Urine Nitrite NEGATIVE Ur Leukocyte Esterase NEGATIVE Urine WBC (Auto) 1 Urine RBC (Auto) 3 10/12/19 10/12/19 14:11 14:11 WBC RBC Hgb Hct MCV MCH MCHC RDW Plt Count Seg Neutrophils % VBG pH 7.32 VBG pCO2 48.1 VBG HCO3 24.2 VBG Base Excess -2.1 Sodium Potassium Chloride Carbon Dioxide Anion Gap BUN Creatinine Est GFR ( Amer) Glucose Lactic Acid 1.5 Calcium Total Bilirubin AST Alkaline Phosphatase Total Protein Albumin Urine Color Urine Appearance Urine pH Ur Specific [place] Urine Protein Urine Glucose (UA) Urine Ketones Urine Blood Urine Nitrite Ur Leukocyte Esterase Urine WBC (Auto) Urine RBC (Auto) 10/12/19 12:13 Troponin I < 0.012 Impressions: Chest X-Ray 10/12/19 11:25 IMPRESSION: NO ACUTE RADIOGRAPHIC FINDING IN THE CHEST. Chest/Abdomen CTA 10/12/19 13:42 IMPRESSION: NORMAL CTA OF THE CHEST. NO PULMONARY EMBOLI. DIFFUSE AIRSPACE DISEASE, SOMEWHAT MORE FOCAL IN THE LEFT LOWER LOBE, AND SMALL PLEURAL EFFUSIONS. Assessment and Plan - Diagnosis (1) Left lower lobe pneumonia Qualifiers: Pneumonia type: due to unspecified organism Qualified Code(s): J18.9 - Pneumonia, unspecified organism Is this a current diagnosis for this admission?: Yes Plan: 10/12/2019-patient is going to be admitted to [facility] with a diagnosis of questionable left lower lobe pneumonia. Started on IV Rocephin and Zithromax. COVID test is pending. GI prophylaxis initiated patient is already on Xarelto. Blood cultures sputum cultures are requested. To place him on oxygen 2 L via nasal cannula. (2) Multiple sclerosis Is this a current diagnosis for this admission?: No Plan: 10/12/2019-patient is given the history of multiple sclerosis stable at this time. Plan is to continue his home medications. (3) Obesity (BMI 30-39.9) Is this a current diagnosis for this admission?: No Plan: 10/12/2019-BMI is more than 36 diet exercise weight loss lifestyle modifications discussed with the patient. Dietary consult will be requested. (4) Bipolar 1 disorder Is this a current diagnosis for this admission?: No Plan: 10/12/2019-patient has history of bipolar disorder, to continue his home medications at this time. - Time Anticipated Discharge Disposition: Home, Self Care Anticipated Discharge Timeframe: within 72 hours
[2019-10-12] MEDS: DOCUSATE SODIUM 100 MG CAPSULE PO SCH (17:47)
[2019-10-12] MEDS: ACETAMINOPHEN 325 MG TABLET PO PRN (17:47)
[2019-10-12] MEDS: NORMAL SALINE 1000 ML 1,000 ML IV PRN (17:48)
[2019-10-12 18:50] LABS: URINE AMPHETAMINES SCREEN NEGATIVE; URINE BARBITURATES SCREEN NEGATIVE; URINE BENZODIAZEPINES SCREEN NEGATIVE; URINE COCAINE SCREEN NEGATIVE; URINE MARIJUANA (THC) SCREEN NEGATIVE; URINE METHADONE SCREEN NEGATIVE; URINE PHENCYCLIDINE SCREEN NEGATIVE
[2019-10-12] MEDS ORDERED: QUETIAPINE FUMARATE 100 MG TABLET PO ONE (23:30)
[2019-10-12] MEDS: TRAMADOL HCL 50 MG TABLET PO PRN (23:56)
[2019-10-12] MEDS: MECLIZINE HCL 25 MG TABLET PO PRN (23:56)
[2019-10-12] MEDS: FAMOTIDINE 20 MG TABLET PO SCH (23:56)
[2019-10-13] MEDS: TRAMADOL HCL 50 MG TABLET PO PRN ×4 (05:47→22:01)
[2019-10-13 05:48] LABS: HEMATOCRIT 35.1 % (37.9-51.0); HEMOGLOBIN 11.9 g/dL (13.5-17.0); MEAN CORPUSCULAR HEMOGLOBIN 27.1 pg (27.0-33.4); MEAN CORPUSCULAR HGB CONC 33.9 g/dL (32.0-36.0); MEAN CORPUSCULAR VOLUME 80 fl (80-97); PLATELET COUNT 181 10^3/uL (150-450); RED BLOOD COUNT 4.39 10^6/uL (4.35-5.55); WHITE BLOOD COUNT 6.4 10^3/uL (4.0-10.5)
[2019-10-13] MEDS: NORMAL SALINE 1000 ML 1,000 ML IV PRN ×2 (05:48→22:06)
[2019-10-13] MEDS: PROMETHAZINE HCL INJ 25 MG/1 ML VIAL IV PRN ×4 (05:49→22:00)
[2019-10-13 06:09] LABS: ALBUMIN 4.1 g/dL (3.5-5.0); ALKALINE PHOSPHATASE 97 U/L (38-126); ANION GAP 5 (5-19); ASPARTATE AMINO TRANSFERASE 24 U/L (17-59); BILIRUBIN,TOTAL 0.4 mg/dL (0.2-1.3); BLOOD UREA NITROGEN 14 mg/dL (7-20); CALCIUM 8.8 mg/dL (8.4-10.2); CARBON DIOXIDE 27 mmol/L (22-30); CHLORIDE 107 mmol/L (98-107); CHOLESTEROL 143.73 mg/dL (0-200); GLUCOSE 105 mg/dL (75-110); POTASSIUM 3.9 mmol/L (3.6-5.0); TOTAL PROTEIN 7.2 g/dL (6.3-8.2); TRIGLYCERIDES 141 mg/dL (<150)
[2019-10-13 06:19] LABS: ABSOLUTE LYMPHOCYTES# (MANUAL) 0.6 10^3/uL (0.5-4.7); ABSOLUTE MONOCYTES # (MANUAL) 0.8 10^3/uL (0.1-1.4); BAND NEUTROPHILS % (MANUAL) 2 % (3-5); BASOPHILS % (MANUAL) 0 % (0-2); DIRECT LDL 87 mg/dL (<100); EOSINOPHILS % (MANUAL) 4 % (0-6); LYMPHOCYTES % (MANUAL) 10 % (13-45); MONOCYTES % (MANUAL) 13 % (3-13); SEGMENTED NEUTROPHILS % (MAN) 71 % (42-78); TOTAL CELLS COUNTED 100
[2019-10-13 06:20] LABS: ANISOCYTOSIS 1+; PLATELET COMMENT ADEQUATE
[2019-10-13 07:11] LABS: APPEARANCE,URINE CLEAR; BILIRUBIN,URINE NEGATIVE (NEGATIVE); COLOR,URINE YELLOW; GLUCOSE, URINE NEGATIVE (NEGATIVE); KETONES,URINE NEGATIVE (NEGATIVE); LEUKOCYTE ESTERASE,URINE NEGATIVE (NEGATIVE); NITRITE,URINE NEGATIVE (NEGATIVE); PROTEIN,URINE NEGATIVE (NEGATIVE); URINE SPECIFIC GRAVITY 1.014; UROBILINOGEN,URINE NEGATIVE mg/dL (<2.0)
[2019-10-13] MEDS ORDERED: (PENDING PHARMACY ID) (Oxybutynin Chloride [Oxybutynin Chloride Er] 5 MG) PO SCH (10:00)
[2019-10-13] MEDS ORDERED: CEFTRIAXONE INJ 1000 MG VIAL IV SCH (10:00)
[2019-10-13] MEDS ORDERED: OLANZAPINE 20 MG PO SCH (10:00)
[2019-10-13] MEDS ORDERED: (PENDING PHARMACY ID) (Albuterol Sulfate 1 PUFF) IH PRN (10:00)
[2019-10-13] MEDS ORDERED: AZITHROMYCIN INJ 500 MG VIAL IV SCH (10:00)
[2019-10-13] MEDS ORDERED: BACLOFEN 10 MG TABLET PO PRN (10:00)
[2019-10-13] MEDS ORDERED: FAMOTIDINE 20 MG PO SCH (10:00)
[2019-10-13] MEDS ORDERED: (PENDING PHARMACY ID) (Quetiapine Fumarate [Quetiapine Fumarate] 300 MG) PO SCH (10:00)
--- NOTE | 2019-10-13 10:07 | PDOC PROGRESS REPORT ---
Subjective Progress Note for:: 10/13/19 Subjective:: 54 year old male With history of multiple sclerosis, right BKA, bipolar disorder came to the emergency room with complaints of shortness of breath associated with rapid breathing for the last few days. He was treated with outpatient levofloxacin as an outpatient he finished 10 days course not getting better and he went to see his primary care physician Dr. Preston as per his recommendations came to the ER for further evaluation. As per the patient he was tested twice for COVID the last 1 month came back negative. Work-up in the ER entirely negative. With minimal activity respiratory rate going up to 25. CT of the chest is negative. ER physician requested for repeat COVID at this time. Patient agreed to stay in the hospital for further management. [id number]-old male admitted for failed outpatient antibiotic therapy presently on IV Rocephin and Zithromax. pt Is also complaining of multiple falls at home physical therapy consult was requested. covid test is pending. Plan is to continue the present management at this time. Reason For Visit: PNEUMONIA Physical Exam Vital Signs: Temp Pulse Resp BP Pulse Ox 97.4 F 74 20 156/89 H 95 10/13/19 07:24 10/13/19 07:24 10/13/19 07:24 10/13/19 07:24 10/13/19 07:24 Intake & Output 10/12/19 10/13/19 10/14/19 06:59 06:59 06:59 Intake Total 1686 Output Total 1850 Balance -164 Weight 102.9 kg General appearance: PRESENT: no acute distress, well-developed Head exam: PRESENT: atraumatic Eye exam: PRESENT: PERRLA Mouth exam: PRESENT: moist, tongue midline Teeth exam: PRESENT: poor dentation Neck exam: ABSENT: carotid bruit, JVD, lymphadenopathy, thyromegaly Respiratory exam: PRESENT: decreased breath sounds Cardiovascular exam: PRESENT: RRR. ABSENT: diastolic murmur, rubs, systolic murmur GI/Abdominal exam: PRESENT: normal bowel sounds, soft. ABSENT: distended, guarding, mass, organolmegaly, rebound, tenderness Rectal exam: PRESENT: deferred Extremities exam: PRESENT: full ROM, other - Patient has a right BKA. ABSENT: calf tenderness, clubbing, pedal edema Neurological exam: PRESENT: alert, awake, oriented to person, oriented to place, oriented to time, oriented to situation, CN II-XII grossly intact. ABSENT: motor sensory deficit Psychiatric exam: PRESENT: appropriate affect, normal mood. ABSENT: homicidal ideation, suicidal ideation Results Laboratory Results: 10/13/19 05:29 08 05:29 10/12/19 10/12/19 10/12/19 12:13 12:13 12:13 WBC 8.4 RBC 4.31 L Hgb 11.6 L Hct 34.9 L MCV 81 MCH 26.9 L MCHC 33.1 RDW 15.6 H Plt Count 208 Seg Neutrophils % Not Reportable VBG pH VBG pCO2 VBG HCO3 VBG Base Excess Sodium 137.7 Potassium 4.7 Chloride 106 Carbon Dioxide 25 Anion Gap 7 BUN 10 Creatinine 0.83 Est GFR ( Amer) > 60 Glucose 129 H Lactic Acid Calcium 9.1 Magnesium Total Bilirubin 0.4 AST 25 Alkaline Phosphatase 105 Total Protein 7.6 Albumin 4.3 Triglycerides Cholesterol LDL Cholesterol Direct VLDL Cholesterol HDL Cholesterol TSH Urine Color YELLOW Urine Appearance CLEAR Urine pH 7.0 Ur Specific [place] 1.011 Urine Protein NEGATIVE Urine Glucose (UA) NEGATIVE Urine Ketones NEGATIVE Urine Blood NEGATIVE Urine Nitrite NEGATIVE Ur Leukocyte Esterase NEGATIVE Urine WBC (Auto) 1 Urine RBC (Auto) 3 10/12/19 10/12/19 10/12/19 14:11 14:11 16:35 WBC RBC Hgb Hct MCV MCH MCHC RDW Plt Count Seg Neutrophils % VBG pH 7.32 VBG pCO2 48.1 VBG HCO3 24.2 VBG Base Excess -2.1 Sodium Potassium Chloride Carbon Dioxide Anion Gap BUN Creatinine Est GFR ( Amer) Glucose Lactic Acid 1.5 1.3 Calcium Magnesium Total Bilirubin AST Alkaline Phosphatase Total Protein Albumin Triglycerides Cholesterol LDL Cholesterol Direct VLDL Cholesterol HDL Cholesterol TSH Urine Color Urine Appearance Urine pH Ur Specific [place] Urine Protein Urine Glucose (UA) Urine Ketones Urine Blood Urine Nitrite Ur Leukocyte Esterase Urine WBC (Auto) Urine RBC (Auto) 10/12/19 10/13/19 10/13/19 20:04 05:29 05:29 WBC 6.4 RBC 4.39 Hgb 11.9 L Hct 35.1 L MCV 80 MCH 27.1 MCHC 33.9 RDW 16.0 H Plt Count 181 Seg Neutrophils % Not Reportable VBG pH VBG pCO2 VBG HCO3 VBG Base Excess Sodium 139.3 Potassium 3.9 Chloride 107 Carbon Dioxide 27 Anion Gap 5 BUN 14 Creatinine 0.91 Est GFR ( Amer) > 60 Glucose 105 Lactic Acid 1.7 Calcium 8.8 Magnesium 1.7 Total Bilirubin 0.4 AST 24 Alkaline Phosphatase 97 Total Protein 7.2 Albumin 4.1 Triglycerides 141 Cholesterol 143.73 LDL Cholesterol Direct 87 VLDL Cholesterol 28.0 HDL Cholesterol 38 L TSH Urine Color Urine Appearance Urine pH Ur Specific [place] Urine Protein Urine Glucose (UA) Urine Ketones Urine Blood Urine Nitrite Ur Leukocyte Esterase Urine WBC (Auto) Urine RBC (Auto) 10/13/19 10/13/19 05:29 05:45 WBC RBC Hgb Hct MCV MCH MCHC RDW Plt Count Seg Neutrophils % VBG pH VBG pCO2 VBG HCO3 VBG Base Excess Sodium Potassium Chloride Carbon Dioxide Anion Gap BUN Creatinine Est GFR ( Amer) Glucose Lactic Acid Calcium Magnesium Total Bilirubin AST Alkaline Phosphatase Total Protein Albumin Triglycerides Cholesterol LDL Cholesterol Direct VLDL Cholesterol HDL Cholesterol TSH 2.34 Urine Color YELLOW Urine Appearance CLEAR Urine pH 5.0 Ur Specific [place] 1.014 Urine Protein NEGATIVE Urine Glucose (UA) NEGATIVE Urine Ketones NEGATIVE Urine Blood NEGATIVE Urine Nitrite NEGATIVE Ur Leukocyte Esterase NEGATIVE Urine WBC (Auto) 0 Urine RBC (Auto) 1 10/12/19 10/13/19 12:13 05:29 Troponin I < 0.012 NT-Pro-B Natriuret Pep 435 H Impressions: Chest X-Ray 10/12/19 11:25 IMPRESSION: NO ACUTE RADIOGRAPHIC FINDING IN THE CHEST. Chest/Abdomen CTA 10/12/19 13:42 IMPRESSION: NORMAL CTA OF THE CHEST. NO PULMONARY EMBOLI. DIFFUSE AIRSPACE DISEASE, SOMEWHAT MORE FOCAL IN THE LEFT LOWER LOBE, AND SMALL PLEURAL EFFUSIONS. Assessment and Plan - Diagnosis (1) Left lower lobe pneumonia Qualifiers: Pneumonia type: due to unspecified organism Qualified Code(s): J18.9 - Pneumonia, unspecified organism Is this a current diagnosis for this admission?: Yes Plan: 10/12/2019-patient is going to be admitted to [facility] with a diagnosis of questionable left lower lobe pneumonia. Started on IV Rocephin and Zithromax. COVID test is pending. GI prophylaxis initiated patient is already on Xarelto. Blood cultures sputum cultures are requested. To place him on oxygen 2 L via nasal cannula. 10/13/2019-patient admitted with left-sided questionable lower lobe pneumonia on IV Rocephin and Zithromax WBC count is 6400 today afebrile. Blood cultures are pending. covid test is pending. (2) Multiple sclerosis Is this a current diagnosis for this admission?: No Plan: 10/12/2019-patient is given the history of multiple sclerosis stable at this time. Plan is to continue his home medications. (3) Obesity (BMI 30-39.9) Is this a current diagnosis for this admission?: No Plan: 10/12/2019-BMI is more than 36 diet exercise weight loss lifestyle modifications discussed with the patient. Dietary consult will be requested. (4) Bipolar 1 disorder Is this a current diagnosis for this admission?: No Plan: 10/12/2019-patient has history of bipolar disorder, to continue his home medications at this time. (5) Fall Is this a current diagnosis for this admission?: No Plan: 10/13/2019-patient given the history of multiple falls at home physical therapy consult was requested. - Time Anticipated Discharge Disposition: Home, Self Care Anticipated Discharge Timeframe: within 48 hours
[2019-10-13] MEDS: PANTOPRAZOLE SODIUM 40 MG TABLET.DR PO SCH (11:06)
[2019-10-13] MEDS: FAMOTIDINE 20 MG TABLET PO SCH ×2 (11:06→22:00)
[2019-10-13] MEDS: DOCUSATE SODIUM 100 MG CAPSULE PO SCH ×2 (11:07→17:19)
[2019-10-13] MEDS: ESCITALOPRAM OXALATE 10 MG TABLET PO SCH (11:07)
[2019-10-13] MEDS: TIZANIDINE HCL 4 MG TABLET PO SCH ×3 (11:07→17:19)
[2019-10-13] MEDS: CEFTRIAXONE 1 GM/D5W RTU 1 GM/50 ML RTUPB IV SCH (11:08)
[2019-10-13] MEDS ORDERED: ALBUTEROL SULFATE HFA (90 MCG/PUFF) 200 PUFF/8.5 GM MDI IH PRN (12:05)
[2019-10-13] MEDS ORDERED: AZITHROMYCIN 500 MG in DEXTROSE 5%-WATER 250 ML IV SCH (14:00)
[2019-10-13] MEDS: RIVAROXABAN 10 MG TABLET PO SCH (15:38)
[2019-10-13] MEDS: GABAPENTIN 300 MG CAPSULE PO SCH ×2 (15:40→22:01)
[2019-10-13] MEDS ORDERED: PREDNISONE 10 MG TABLET ONE (15:41)
[2019-10-13] MEDS: QUETIAPINE FUMARATE 100 MG TABLET PO SCH ×2 (15:44→22:01)
[2019-10-13] MEDS: OLANZAPINE 5 MG TABLET PO SCH (15:44)
[2019-10-13] MEDS: PREDNISONE 10 MG TABLET PO SCH (17:19)
[2019-10-13] MEDS ORDERED: QUETIAPINE FUMARATE 100 MG TABLET PO SCH (22:00)
[2019-10-13] MEDS: MECLIZINE HCL 25 MG TABLET PO PRN (22:01)
[2019-10-13] MEDS: TOPIRAMATE 25 MG TABLET PO SCH (22:01)
[2019-10-13] MEDS: OXYBUTYNIN CHLORIDE 5 MG TABLET PO SCH (22:02)
[2019-10-14] MEDS: ACETAMINOPHEN 325 MG TABLET PO PRN (01:25)
[2019-10-14 05:36] LABS: HEMATOCRIT 35.8 % (37.9-51.0); HEMOGLOBIN 11.9 g/dL (13.5-17.0); MEAN CORPUSCULAR HEMOGLOBIN 26.9 pg (27.0-33.4); MEAN CORPUSCULAR HGB CONC 33.3 g/dL (32.0-36.0); MEAN CORPUSCULAR VOLUME 81 fl (80-97); PLATELET COUNT 199 10^3/uL (150-450); RED BLOOD COUNT 4.43 10^6/uL (4.35-5.55); WHITE BLOOD COUNT 6.5 10^3/uL (4.0-10.5)
[2019-10-14 05:55] LABS: ALKALINE PHOSPHATASE 80 U/L (38-126); ANION GAP 9 (5-19); ASPARTATE AMINO TRANSFERASE 25 U/L (17-59); BILIRUBIN,TOTAL 0.4 mg/dL (0.2-1.3); BLOOD UREA NITROGEN 11 mg/dL (7-20); CARBON DIOXIDE 25 mmol/L (22-30); CHLORIDE 105 mmol/L (98-107); GLUCOSE 114 mg/dL (75-110); POTASSIUM 3.9 mmol/L (3.6-5.0); TOTAL PROTEIN 7.3 g/dL (6.3-8.2)
[2019-10-14] MEDS: GABAPENTIN 300 MG CAPSULE PO SCH ×2 (06:18→13:26)
[2019-10-14 06:27] LABS: ABSOLUTE LYMPHOCYTES# (MANUAL) 1.3 10^3/uL (0.5-4.7); ABSOLUTE MONOCYTES # (MANUAL) 0.5 10^3/uL (0.1-1.4); BASOPHILS % (MANUAL) 0 % (0-2); EOSINOPHILS % (MANUAL) 1 % (0-6); LYMPHOCYTES % (MANUAL) 20 % (13-45); MONOCYTES % (MANUAL) 7 % (3-13); SEGMENTED NEUTROPHILS % (MAN) 72 % (42-78); TOTAL CELLS COUNTED 100
[2019-10-14 06:28] LABS: ANISOCYTOSIS 1+; HYPOCHROMASIA SLIGHT; OVALOCYTES SLIGHT; PLATELET COMMENT ADEQUATE; POIKILOCYTOSIS SLIGHT; TOXIC GRANULATION 1+
[2019-10-14] MEDS: PANTOPRAZOLE SODIUM 40 MG TABLET.DR PO SCH (09:01)
[2019-10-14] MEDS: OLANZAPINE 5 MG TABLET PO SCH (09:02)
[2019-10-14] MEDS: TIZANIDINE HCL 4 MG TABLET PO SCH ×2 (09:03→13:27)
[2019-10-14] MEDS: QUETIAPINE FUMARATE 100 MG TABLET PO SCH (09:04)
[2019-10-14] MEDS: TOPIRAMATE 25 MG TABLET PO SCH (09:04)
[2019-10-14] MEDS: ESCITALOPRAM OXALATE 10 MG TABLET PO SCH (09:05)
[2019-10-14] MEDS: TRAMADOL HCL 50 MG TABLET PO PRN (09:05)
[2019-10-14] MEDS: RIVAROXABAN 10 MG TABLET PO SCH (09:06)
[2019-10-14] MEDS: PREDNISONE 10 MG TABLET PO SCH (09:06)
[2019-10-14] MEDS: FAMOTIDINE 20 MG TABLET PO SCH (09:06)
[2019-10-14] MEDS: OXYBUTYNIN CHLORIDE 5 MG TABLET PO SCH (09:07)
[2019-10-14] MEDS: PROMETHAZINE HCL INJ 25 MG/1 ML VIAL IV PRN (09:07)
[2019-10-14] MEDS: DOCUSATE SODIUM 100 MG CAPSULE PO SCH (09:08)
[2019-10-14] MEDS: CEFTRIAXONE 1 GM/D5W RTU 1 GM/50 ML RTUPB IV SCH (09:09)
[2019-10-14] MEDS ORDERED: LEVOFLOXACIN 500 MG TABLET PO SCH (10:00)
[2019-10-14 16:29] VITALS: BP 136/89
--- NOTE | 2019-10-14 16:40 | PDOC DISCHARGE SUMMARY ---
Impression - Admit/DC Date/PCP Admission Date/Primary Care Provider: 10/12/19 15:39 KASSANDRA CARABALLO MD Discharge Date: 10/14/19 - Discharge Diagnosis (1) Left lower lobe pneumonia Is this a current diagnosis for this admission?: Yes (2) Multiple sclerosis Is this a current diagnosis for this admission?: No (3) Obesity (BMI 30-39.9) Is this a current diagnosis for this admission?: No (4) Bipolar 1 disorder Is this a current diagnosis for this admission?: No (5) Fall Is this a current diagnosis for this admission?: No - Assessment Summary: (1) Left lower lobe pneumonia Qualifiers: Pneumonia type: due to unspecified organism Qualified Code(s): J18.9 - Pneumonia, unspecified organism Is this a current diagnosis for this admission?: Yes Plan: 10/12/2019-patient is going to be admitted to [facility] with a diagnosis of questionable left lower lobe pneumonia. Started on IV Rocephin and Zithromax. COVID test is pending. GI prophylaxis initiated patient is already on Xarelto. Blood cultures sputum cultures are requested. To place him on oxygen 2 L via nasal cannula. 10/13/2019-patient admitted with left-sided questionable lower lobe pneumonia on IV Rocephin and Zithromax WBC count is 6400 today afebrile. Blood cultures are pending. covid test is pending. 10/14/2019-patient admitted with questionable left-sided pneumonia treated with IV Rocephin and Zithromax afebrile WBC count within normal limits blood cultures are negative , COVID test came back negative. Patient is discharged on p.o. levofloxacin. (2) Multiple sclerosis Is this a current diagnosis for this admission?: No Plan: 10/12/2019-patient is given the history of multiple sclerosis stable at this time. Plan is to continue his home medications. (3) Obesity (BMI 30-39.9) Is this a current diagnosis for this admission?: No Plan: 10/12/2019-BMI is more than 36 diet exercise weight loss lifestyle modifications discussed with the patient. Dietary consult will be requested. (4) Bipolar 1 disorder Is this a current diagnosis for this admission?: No Plan: 10/12/2019-patient has history of bipolar disorder, to continue his home medications at this time. (5) Fall Is this a current diagnosis for this admission?: No Plan: 10/13/2019-patient given the history of multiple falls at home physical therapy consult was requested. 10/14/19-physical therapy consult was requested, no recommendations were made. - Additional Information Resuscitation Status: Full Code Discharge Diet: Cardiac Discharge Activity: Activity As Tolerated Referrals: KASSANDRA CARABALLO MD [Primary Care Provider] - 10/18/19 3:30 pm Prescriptions: Prednisone [Deltasone 10 mg Tablet] 10 mg PO BID 10 Days #20 tablet Levofloxacin [Levaquin 500 mg Tablet] 500 mg PO DAILY 7 Days #7 tablet Home Medications: Gabapentin [Neurontin 300 mg Capsule] 300 mg PO Q8 02/11/19 Rivaroxaban [Xarelto] 20 mg PO DAILY 02/11/19 Topiramate [Topamax] 50 mg PO Q12 02/11/19 Escitalopram Oxalate [Lexapro 10 mg Tablet] 20 mg PO DAILY 02/12/19 Baclofen [Baclofen 10 mg Tablet] 10 mg PO QHS PRN #10 tablet 10/10/19 Albuterol Sulfate [Proair HFA Inhalation Aerosol 8.5 gm MDI] 1 puff IH Q4HP PRN 10/13/19 Dimethyl Fumarate [Tecfidera] 240 mg PO BID 10/13/19 Famotidine 20 mg PO DAILY 10/13/19 Olanzapine 20 mg PO DAILY 10/13/19 Oxybutynin Chloride [Oxybutynin Chloride ER] 5 mg PO DAILY 10/13/19 Pantoprazole Sodium [Protonix [address] Tablet] 40 mg PO DAILY 10/13/19 Quetiapine Fumarate 300 mg PO BID 10/13/19 Tizanidine HCl [Zanaflex 4 mg Tablet] 8 mg PO TID 10/13/19 Levofloxacin [Levaquin 500 mg Tablet] 500 mg PO DAILY 7 Days #7 tablet 10/14/19 Prednisone [Deltasone 10 mg Tablet] 10 mg PO BID 10 Days #20 tablet 10/14/19 History of Present Illiness History of Present Illness: YESSY ALMODOVAR is a 54 year old male With history of multiple sclerosis, right BKA, bipolar disorder came to the emergency room with complaints of shortness of breath associated with rapid breathing for the last few days. He was treated with outpatient levofloxacin as an outpatient he finished 10 days course not getting better and he went to see his primary care physician Dr. Caraballo as per his recommendations came to the ER for further evaluation. As per the patient he was tested twice for COVID the last 1 month came back negative. Work-up in the ER entirely negative. With minimal activity respiratory rate going up to 25. CT of the chest is negative. ER physician requested for repeat COVID at this time. Patient agreed to stay in the hospital for further management. Hospital Course Hospital Course: 54 year old male With history of multiple sclerosis, right BKA, bipolar disorder came to the emergency room with complaints of shortness of breath associated with rapid breathing for the last few days. He was treated with outpatient levofloxacin as an outpatient he finished 10 days course not getting better and he went to see his primary care physician Dr. Caraballo as per his recommendations came to the ER for further evaluation. As per the patient he was tested twice for COVID the last 1 month came back negative. Work-up in the ER entirely negative. With minimal activity respiratory rate going up to 25. CT of the chest is negative. ER physician requested for repeat COVID at this time. Patient agreed to stay in the hospital for further management. 10/13/[id number]-ndhd-old male admitted for failed outpatient antibiotic therapy presently on IV Rocephin and Zithromax. pt Is also complaining of multiple falls at home physical therapy consult was requested. covid test is pending. Plan is to continue the present management at this time 10/14/19-no acute events in the last 24 hours. Afebrile. Coronavirus testing is negative. Blood cultures are negative. Patient is discharged on p.o. levofloxacin today and advised to follow-up with Dr. Caraballo next week.. Physical Exam Vital Signs: Temp Pulse Resp BP Pulse Ox 97.6 F 64 18 174/91 H 95 10/14/19 15:00 10/14/19 15:00 10/14/19 15:00 10/14/19 15:00 10/14/19 15:00 Intake & Output 10/13/19 10/14/19 10/15/19 06:59 06:59 06:59 Intake Total 1686 2984 118 Output Total 1850 2300 1275 Balance -164 684 -1157 Weight 102.9 kg 132 kg General appearance: PRESENT: no acute distress, obese Head exam: PRESENT: atraumatic Eye exam: PRESENT: PERRLA Mouth exam: PRESENT: moist, tongue midline Teeth exam: PRESENT: poor dentation Neck exam: ABSENT: carotid bruit, JVD, lymphadenopathy, thyromegaly Respiratory exam: PRESENT: decreased breath sounds Cardiovascular exam: PRESENT: RRR. ABSENT: diastolic murmur, rubs, systolic murmur GI/Abdominal exam: PRESENT: normal bowel sounds, soft. ABSENT: distended, guarding, mass, organolmegaly, rebound, tenderness Rectal exam: PRESENT: deferred Extremities exam: PRESENT: full ROM, other - Patient has a right BKA. ABSENT: calf tenderness, clubbing, pedal edema Neurological exam: PRESENT: alert, awake, oriented to person, oriented to place, oriented to time, oriented to situation, CN II-XII grossly intact. ABSENT: mot or sensory deficit Psychiatric exam: PRESENT: appropriate affect, normal mood. ABSENT: homicidal ideation, suicidal ideation Skin exam: PRESENT: dry, intact, warm. ABSENT: cyanosis, rash Results Laboratory Results: WBC 6.5 10^3/uL (4.0-10.5) 10/14/19 05:15 RBC 4.43 10^6/uL (4.35-5.55) 10/14/19 05:15 Hgb 11.9 g/dL (13.5-17.0) L 10/14/19 05:15 Hct 35.8 % (37.9-51.0) L 10/14/19 05:15 MCV 81 fl (80-97) 10/14/19 05:15 MCH 26.9 pg (27.0-33.4) L 10/14/19 05:15 MCHC 33.3 g/dL (32.0-36.0) 10/14/19 05:15 RDW 16.0 % (11.5-14.0) H 10/14/19 05:15 Plt Count 199 10^3/uL (150-450) 10/14/19 05:15 Lymph % (Auto) Not Reportable 10/14/19 05:15 [place] % (Auto) Not Reportable 10/14/19 05:15 Eos % (Auto) Not Reportable 10/14/19 05:15 Baso % (Auto) Not Reportable 10/14/19 05:15 Absolute Neuts (auto) Not Reportable 10/14/19 05:15 Absolute Lymphs (auto) Not Reportable 10/14/19 05:15 Absolute Monos (auto) Not Reportable 10/14/19 05:15 Absolute Eos (auto) Not Reportable 10/14/19 05:15 Absolute Basos (auto) Not Reportable 10/14/19 05:15 Total Counted 100 10/14/19 05:15 Seg Neutrophils % Not Reportable 10/14/19 05:15 Seg Neuts % (Manual) 72 % (42-78) 10/14/19 05:15 Band Neutrophils % 2 % (3-5) L 10/13/19 05:29 Lymphocytes % (Manual) 20 % (13-45) 10/14/19 05:15 Atypical Lymphs % 2 % (0) 10/12/19 12:13 Monocytes % (Manual) 7 % (3-13) 10/14/19 05:15 Eosinophils % (Manual) 1 % (0-6) 10/14/19 05:15 Basophils % (Manual) 0 % (0-2) 10/14/19 05:15 Abs Neuts (Manual) 4.7 10^3/uL (1.7-8.2) 10/14/19 05:15 Abs Lymphs (Manual) 1.3 10^3/uL (0.5-4.7) 10/14/19 05:15 Abs Monocytes (Manual) 0.5 10^3/uL (0.1-1.4) 10/14/19 05:15 Absolute Eos (Manual) 0.1 10^3/uL (0.0-0.6) 10/14/19 05:15 Abs Basophils (Manual) 0.0 10^3/uL (0.0-0.2) 10/14/19 05:15 Toxic Granulation 1+ 10/14/19 05:15 Platelet Comment ADEQUATE 10/14/19 05:15 Hypochromasia SLIGHT 10/14/19 05:15 Poikilocytosis SLIGHT 10/14/19 05:15 Anisocytosis 1+ 10/14/19 05:15 Ovalocytes SLIGHT 10/14/19 05:15 VBG pH 7.32 (7.30-7.42) 10/12/19 14:11 VBG pCO2 48.1 mmHg (35-63) 10/12/19 14:11 VBG HCO3 24.2 mmol/L (20-32) 10/12/19 14:11 VBG Base Excess -2.1 mmol/L 10/12/19 14:11 Sodium 138.5 mmol/L (137-145) 10/14/19 05:15 Potassium 3.9 mmol/L (3.6-5.0) 10/14/19 05:15 Chloride 105 mmol/L (98-107) 10/14/19 05:15 Carbon Dioxide 25 mmol/L (22-30) 10/14/19 05:15 Anion Gap 9 (5-19) 10/14/19 05:15 BUN 11 mg/dL (7-20) 10/14/19 05:15 Creatinine 0.81 mg/dL (0.52-1.25) 10/14/19 05:15 Est GFR ( Amer) > 60 (>60) 10/14/19 05:15 Est GFR (MDRD) Non-Af > 60 (>60) 10/14/19 05:15 Glucose 114 mg/dL (75-110) H 10/14/19 05:15 POC Glucose 140 mg/dL (70-110) H 10/13/19 15:16 Hemoglobin A1c % 5.3 % (4.7-6.0) 10/13/19 05:29 Lactic Acid 1.7 mmol/L (0.7-2.1) 10/12/19 20:04 Calcium 9.0 mg/dL (8.4-10.2) 10/14/19 05:15 Magnesium 1.7 mg/dL (1.6-2.3) 10/13/19 10:30 Total Bilirubin 0.4 mg/dL (0.2-1.3) 10/14/19 05:15 Direct Bilirubin 0.0 mg/dL (0.0-0.4) 10/14/19 05:15 Neonat Total Bilirubin Not Reportable 10/14/19 05:15 Neonat Direct Bilirubin Not Reportable 10/14/19 05:15 Neonat Indirect Bili Not Reportable 10/14/19 05:15 AST 25 U/L (17-59) 10/14/19 05:15 ALT 22 U/L (<50) 10/14/19 05:15 Alkaline Phosphatase 80 U/L (38-126) 10/14/19 05:15 Troponin I < 0.012 ng/mL 10/12/19 12:13 NT-Pro-B Natriuret Pep 435 pg/mL (<125) H 10/13/19 05:29 Total Protein 7.3 g/dL (6.3-8.2) 10/14/19 05:15 Albumin 4.0 g/dL (3.5-5.0) 10/14/19 05:15 Triglycerides 141 mg/dL (<150) 10/13/19 05:29 Cholesterol 143.73 mg/dL (0-200) 10/13/19 05:29 LDL Cholesterol Direct 87 mg/dL (<100) 10/13/19 05:29 VLDL Cholesterol 28.0 mg/dL (10-31) 10/13/19 05:29 HDL Cholesterol 38 mg/dL (>40) L 10/13/19 05:29 TSH 2.34 uIU/mL (0.47-4.68) 10/13/19 05:29 Urine Color YELLOW 10/13/19 05:45 Urine Appearance CLEAR 10/13/19 05:45 Urine pH 5.0 (5.0-9.0) 10/13/19 05:45 Ur Specific [place] 1.014 10/13/19 05:45 Urine Protein NEGATIVE mg/dL (NEGATIVE) 10/13/19 05:45 Urine Glucose (UA) NEGATIVE mg/dL (NEGATIVE) 10/13/19 05:45 Urine Ketones NEGATIVE mg/dL (NEGATIVE) 10/13/19 05:45 Urine Blood NEGATIVE (NEGATIVE) 10/13/19 05:45 Urine Nitrite NEGATIVE (NEGATIVE) 10/13/19 05:45 Urine Bilirubin NEGATIVE (NEGATIVE) 10/13/19 05:45 Urine Urobilinogen NEGATIVE mg/dL (<2.0) 10/13/19 05:45 Ur Leukocyte Esterase NEGATIVE (NEGATIVE) 10/13/19 05:45 Urine WBC (Auto) 0 /HPF 10/13/19 05:45 Urine RBC (Auto) 1 /HPF 10/13/19 05:45 Urine Bacteria (Auto) TRACE /HPF 10/13/19 05:45 Urine Mucus (Auto) RARE /LPF 10/13/19 05:45 Urine Ascorbic Acid NEGATIVE (NEGATIVE) 10/13/19 05:45 Urine Opiates Screen NEGATIVE 10/12/19 12:13 Urine Methadone Screen NEGATIVE 10/12/19 12:13 Ur Barbiturates Screen NEGATIVE 10/12/19 12:13 Ur Phencyclidine Scrn NEGATIVE 10/12/19 12:13 Ur Amphetamines Screen NEGATIVE 10/12/19 12:13 U Benzodiazepines Scrn NEGATIVE 10/12/19 12:13 Urine Cocaine Screen NEGATIVE 10/12/19 12:13 U Marijuana (THC) Screen NEGATIVE 10/12/19 12:13 COVID-19 Source NASOPHARYNGEAL 10/12/19 14:56 COVID-19 ([place]) NOT DETECTED 10/12/19 14:56 10/12/19 10/13/19 12:13 05:29 Troponin I < 0.012 NT-Pro-B Natriuret Pep 435 H Impressions: Chest X-Ray 10/12/19 11:25 IMPRESSION: NO ACUTE RADIOGRAPHIC FINDING IN THE CHEST. Chest/Abdomen CTA 10/12/19 13:42 IMPRESSION: NORMAL CTA OF THE CHEST. NO PULMONARY EMBOLI. DIFFUSE AIRSPACE DISEASE, SOMEWHAT MORE FOCAL IN THE LEFT LOWER LOBE, AND SMALL PLEURAL EFFUSIONS. Plan Time Spent: Greater than 30 Minutes Stroke Is this a Stroke Patient?: No Acute Heart Failure - Is this a Heart Failure Patient?: No
== END 2019-10-14 16:20 | disposition home or self-care (01) ==
LOC: ER 11:14 → EH 15:39 → INTOOBSV 15:39 → 3W 20:55
PROVIDERS: ADMIT Internal Medicine; ATTEND Internal Medicine
DX: J18.9 Pneumonia, unspecified organism (principal); G35 Multiple sclerosis; F31.9 Bipolar disorder, unspecified; R29.6 Repeated falls; Z91.81 History of falling; E66.01 Morbid (severe) obesity due to excess calories; R42 Dizziness and giddiness; M54.2 Cervicalgia; I82.509 Chronic embolism and thrombosis of unspecified deep veins of unspecified lower extremity; K21.9 Gastro-esophageal reflux disease without esophagitis; M19.90 Unspecified osteoarthritis, unspecified site; Z20.828 Contact with and (suspected) exposure to other viral communicable diseases; Z79.01 Long term (current) use of anticoagulants; Z68.39 Body mass index [BMI] 39.0-39.9, adult; Z79.899 Other long term (current) drug therapy; Z89.511 Acquired absence of right leg below knee; Z98.84 Bariatric surgery status; Z82.49 Family history of ischemic heart disease and other diseases of the circulatory system; Z86.14 Personal history of Methicillin resistant Staphylococcus aureus infection; Z90.49 Acquired absence of other specified parts of digestive tract
CPT/HCPCS: 99285; 96374; 36415 ×3; 87040; 82962 ×2; 83605; 83735; 84443; 85025 ×3; 80053 ×3; 81001 ×2; 84484; 80307; 83036; 82803; 80061; 83880; 71045; 71275; 94640; 97116; 97162; U0003; A9270 ×37; J2270; J2550 ×2; J2405; J7060; J7030 ×2; J0456; J0696 ×3; C9803; 87635; G0378; J3490; J7512

== ENCOUNTER → 2019-10-20 | Outpatient (CLI) | payer MEDICARE, MEDICAID ==
[~2019-10-20] MED LIST changes: +ALBUTEROL SULFATE 0.083% NEB 2.5 MG/3 ML AMPUL NEB ONE; -DIAZEPAM 5 MG TABLET ONE
== END ==
LOC: RT 07:56
PROVIDERS: ATTEND Family Medicine Geriatric Medicine
DX: J84.9 Interstitial pulmonary disease, unspecified (principal)
CPT/HCPCS: 94729; 94727; 94060; A9270

== ENCOUNTER → 2019-11-02 | Outpatient (CLI) | payer MEDICARE, MEDICAID ==
--- NOTE | 2019-11-02 10:14 | RADIOLOGY REPORT (SQ) ---
EXAM DESCRIPTION: CHEST PA/LATERAL IMAGES COMPLETED DATE/TIME: 11/02/2019 8:35 am REASON FOR STUDY: ICD,LLL PAIN COMPARISON: 10/12/2019. EXAM PARAMETERS: NUMBER OF VIEWS: two views TECHNIQUE: Digital Frontal and Lateral radiographic views of the chest acquired. RADIATION DOSE: NA LIMITATIONS: none FINDINGS: LUNGS AND PLEURA: Mild interstitial prominence. No lobar infiltrates, masses or pneumotho rax. No pleural effusion. MEDIASTINUM AND HILAR STRUCTURES: No masses or contour abnormalities. HEART AND VASCULAR STRUCTURES: Heart normal size. No evidence for failure. BONES: No acute findings. HARDWARE: None in the chest. OTHER: No other significant finding. IMPRESSION: NO ACUTE RADIOGRAPHIC FINDING IN THE CHEST. TECHNICAL DOCUMENTATION: JOB ID: [id number] 2010 [employer]- All Rights Reserved Reading location - IP/workstation name: [email or web address]
== END ==
LOC: OD 08:20
PROVIDERS: ATTEND Family Medicine Geriatric Medicine
DX: M79.662 Pain in left lower leg (principal)
CPT/HCPCS: 71046

== ENCOUNTER → 2019-11-05 | Outpatient (CLI) | payer MEDICARE, MEDICAID ==
[2019-11-05 12:21] LABS: ABSOLUTE EOSINOPHILS # (AUTO) 0.3 10^3/uL (0.0-0.6); ABSOLUTE LYMPHOCYTES (AUTO) 0.5 10^3/uL (0.5-4.7); ABSOLUTE MONOCYTES (AUTO) 0.6 10^3/uL (0.1-1.4); ABSOLUTE NEUT (AUTO) 5.6 10^3/uL (1.7-8.2); BASOPHILS % (AUTO) 0.3 % (0-2); HEMATOCRIT 36.9 % (37.9-51.0); HEMOGLOBIN 12.4 g/dL (13.5-17.0); LYMPHOCYTES % (AUTO) 7.6 % (13-45); MEAN CORPUSCULAR HEMOGLOBIN 26.7 pg (27.0-33.4); MEAN CORPUSCULAR HGB CONC 33.8 g/dL (32.0-36.0); MEAN CORPUSCULAR VOLUME 79 fl (80-97); MONOCYTES % (AUTO) 8.8 % (3-13); PLATELET COUNT 169 10^3/uL (150-450); RED BLOOD COUNT 4.66 10^6/uL (4.35-5.55); RED CELL DISTRIBUTION WIDTH 15.4 % (11.5-14.0); SEGMENTED NEUTROPHILS % (AUTO) 79.3 % (42-78); TOTAL CELLS COUNTED % (AUTO) 100 %; WHITE BLOOD COUNT 7.1 10^3/uL (4.0-10.5)
[2019-11-05 12:45] LABS: ALBUMIN 4.5 g/dL (3.5-5.0); ALKALINE PHOSPHATASE 87 U/L (38-126); ANION GAP 10 (5-19); ASPARTATE AMINO TRANSFERASE 27 U/L (17-59); BILIRUBIN,DIRECT 0.3 mg/dL (0.0-0.4); BILIRUBIN,TOTAL 0.6 mg/dL (0.2-1.3); BLOOD UREA NITROGEN 13 mg/dL (7-20); CALCIUM 9.3 mg/dL (8.4-10.2); CARBON DIOXIDE 25 mmol/L (22-30); CHLORIDE 106 mmol/L (98-107); GLUCOSE 83 mg/dL (75-110); POTASSIUM 4.2 mmol/L (3.6-5.0); TOTAL PROTEIN 7.7 g/dL (6.3-8.2)
== END ==
LOC: OD 10:46
PROVIDERS: ATTEND Family Medicine Geriatric Medicine
DX: M35.02 Sjogren syndrome with lung involvement (principal); G47.39 Other sleep apnea; G37.9 Demyelinating disease of central nervous system, unspecified; Z79.899 Other long term (current) drug therapy
CPT/HCPCS: 36415; 80053; 85025; 86235; 86431

== ENCOUNTER → 2019-12-22 | Outpatient (CLI) | payer MEDICARE, MEDICAID ==
--- NOTE | 2019-12-22 10:11 | ER RDC ASSESSMENT REPORT ---
Intake - In the Last 14 days Have you traveled outside [place]?: No Have you been in close contact with someone CONFIRMED: No Worked in Healthcare?: No - Symptoms Subjective Fever(Thermal feverish): No Chills: No Muscule Aches: No Runny Nose: No Sore Throat: No Cough (New or worsening chronic cough): Yes Shortness of breath: Yes Nausea or Vomiting: No Headache: No Abdominal Pain: No Diarrhea(3 or more loose stools in last 24 hours): No - Do you have any of the following Chronic lung disease: Asthma or emphysema or COPD: Yes Cystic Fibrosis: No Diabetes: No High Blood Pressure: No Cardiovascular Disease: No Chronic Kidney Disease: No Chronic Liver Disease: No Chronic blood disorder like Sickle Cell Disease: No Weak immune system due to disease or medication: Yes Neurologic condition that limits movement: Yes Developmental delay - Moderate to Severe: No Morbid Obesity (>100 pounds over ideal weight): No - Objective Temperature: 98.4 F Pulse Rate: 62 Respiratory Rate: 14 Blood Pressure: 104/62 O2 Sat by Pulse Oximetry: 93 Objective: Given above, testing performed: flu, covid Disposition: Home; Selfcare General - General Stated Complaint: cough, SOB Time Seen by Provider: 12/22/19 09:50 Mode of Arrival: Ambulatory Information source: Patient - HPI Notes: 54-year-old male presents to [facility] clinic for COVID-19 testing. Patient reports no known contact with Covid positive individual. Patient notes symptoms of cough occasionally productive of clear or white phlegm and some mild shortness of breath primarily on exertion. Also complains of worsening fatigue. Denies any significant fever, chills, myalgia, rhinorrhea, sore throat, nausea or vomi ting, headache, abdominal pain or diarrhea. Of note patient reports he has had 2 episodes of pneumonia within the past 6 months. He does have MS. He is currently being followed by multiple specialties for evaluation of the MS and suspicion of underlying interstitial infiltrative lung disorder/ possible rheumatologic source. - Related Data Allergies/Adverse Reactions: aripiprazole [From Abilify] Adverse Reaction (Severe, Verified 10/12/19 12:29) "uncontrollable muscle tremors" Past Medical History - General Information source: Patient - Social History Smoking Status: Never Smoker Family History: Reviewed & Not Pertinent, CAD, Hypertension, Other - Past Medical History Cardiac Medical History: Reports: Hx Hypertension Denies: Hx Coronary Artery Disease, Hx Heart Attack, Hx Heart Murmur Pulmonary Medical History: Reports: Hx Pneumonia Denies: Hx Asthma, Hx Bronchitis, Hx COPD EENT Medical History: Reports: None Neurological Medical History: Reports: None. Denies: Hx Cerebrovascular Accident, Hx Seizures, Hx Parkinson's Disease Endocrine Medical History: Reports: Hx Diabetes Mellitus Type 2 - Since gastric bypass has been able to stop all medications Renal/ Medical History: Reports: Hx Kidney Stones. Denies: Hx Peritoneal Dialysis Malignancy Medical History: Reports None GI Medical History: Reports: Hx Gastroesophageal Reflux Disease, Hx Ulcer - 4x. Denies: Hx Pancreatitis Musculoskeletal Medical History: Reports Hx Arthritis, Reports Hx Multiple Sclerosis, Denies Hx Systemic Lupus Erythematosus Skin Medical History: Reports Hx MRSA Psychiatric Medical History: Reports: Hx Bipolar Disorder, Hx Depression Traumatic Medical History: Reports: Hx Fractures - RT ankle 2010 Infectious Medical History: Reports: Hx MRSA Past Surgical History: Reports: Hx Abdominal Surgery - Repair of complications from gastric bypass, Hx Appendectomy - 1975, Hx Bowel Surgery - bowel perforation 09/26/2015, May 2016, Hx Gastric Bypass Surgery - 02/19/13, Hx Orthopedic Surgery - Right below-knee amputation 2013, Hx Tonsillectomy - 1978 Physical Exam - General General appearance: Alert In distress: None Notes: PHYSICAL EXAMINATION: GENERAL: Ill-appearing but in no acute distress. HEAD: Atraumatic, normocephalic. EYES: sclera anicteric, conjunctiva are normal. ENT: nares patent. Moist mucous membranes. NECK: Normal range of motion, supple without lymphadenopathy. LUNGS: No increased work of breathing. Lung sounds CTAB and equal but diminished medial and bilateral bases. No wheezes rales or rhonchi. HEART: Regular rate and rhythm without murmurs. ABDOMEN: Soft, nontender, normal bowel sounds, no guarding. EXTREMITIES: BKA, no pitting edema. No cyanosis. NEUROLOGICAL: A&O x 3. Normal speech. PSYCH: Normal mood, normal affect. SKIN: Warm, Dry, normal turgor, no rashes or lesions noted Patient Education/Counseling Counseling/Education: Patient presents with symptoms associated with possible Covid 19 infection. Patient does not have emergency worrying symptoms such as difficulty breathing, shortness of breath, chest pain, pressure, confusion or cyanosis. Patient appears suitable for discharge as vital signs are stable and patient is nontoxic in appearance. Patient advised to monitor her symptoms very closely and with any worsening shortness of breath to present to ER for further evaluation and diagnostic work-up. Good return precautions have been discussed with patient, patient verbalized understanding and is agreeable with discharge plan of care at this time. Guidance for worsening S/SX: As a person under investigation for Covid 19, the [facility], division of public health advises you to adhere to the following guidance until your test results are reported to you. If your test result is positive, you will receive additional information from your provider and your local health department at that time. Remain at home until you are cleared by the health provider or public health authorities. Keep a log of visitors to your home, notify any visitors to your home of your isolation status. If you plan to move to a new address or leave the county, notify the local health department in your County. Call your doctor or seek care if you have an urgent medical need. Before seeking medical care, call ahead to get instructions from the provider before arriving at the medical office clinic or hospital. Notify them that you are being tested for the virus that causes Covid 19 so that arrangements can be made, as necessary, to prevent transmission to others in the healthcare setting. Next, notify the local health department in your county. If a medical emergency arises and you need to call 911, inform the first responders that you are being tested for the virus that causes Covid 19. Next, notify the local health department in your county. RDC Discharge - Discharge Clinical Impression: Encounter for screening laboratory testing for COVID-19 virus Upper respiratory infection Qualifiers: URI type: unspecified URI Qualified Code(s): J06.9 - Acute upper respiratory infection, unspecified Condition: Stable Disposition: Home; Selfcare
[2019-12-22 10:16] VITALS: BP 104/62
[2019-12-22 10:59] LABS: A TYPE INFLUENZA AG NEGATIVE (NEGATIVE); B INFLUENZA AG NEGATIVE (NEGATIVE)
== END ==
LOC: RDC 09:23
PROVIDERS: ATTEND Registered Nurse
DX: Z20.828 Contact with and (suspected) exposure to other viral communicable diseases (principal); J06.9 Acute upper respiratory infection, unspecified; R05 Cough; E66.01 Morbid (severe) obesity due to excess calories; G35 Multiple sclerosis; R53.83 Other fatigue; I10 Essential (primary) hypertension; E11.9 Type 2 diabetes mellitus without complications; K21.9 Gastro-esophageal reflux disease without esophagitis
CPT/HCPCS: 87804; 99201; U0003; G0463; C9803; 87635; 99211

== ENCOUNTER 2019-12-28 11:07 | Observation (INO) | payer MEDICARE, MEDICAID ==
[2019-12-28 11:48] LABS: HEMOGLOBIN 12.6 g/dL (13.5-17.0); MEAN CORPUSCULAR HEMOGLOBIN 26.6 pg (27.0-33.4); MEAN CORPUSCULAR HGB CONC 33.2 g/dL (32.0-36.0); MEAN CORPUSCULAR VOLUME 80 fl (80-97); RED BLOOD COUNT 4.74 10^6/uL (4.35-5.55); RED CELL DISTRIBUTION WIDTH 16.7 % (11.5-14.0); WHITE BLOOD COUNT 5.4 10^3/uL (4.0-10.5)
[2019-12-28 12:02] LABS: ALBUMIN 4.3 g/dL (3.5-5.0); ALKALINE PHOSPHATASE 141 U/L (38-126); ANION GAP 13 (5-19); ASPARTATE AMINO TRANSFERASE 37 U/L (17-59); BILIRUBIN,DIRECT 0.2 mg/dL (0.0-0.4); BILIRUBIN,TOTAL 0.7 mg/dL (0.2-1.3); BLOOD UREA NITROGEN 11 mg/dL (7-20); CALCIUM 9.8 mg/dL (8.4-10.2); CARBON DIOXIDE 24 mmol/L (22-30); CHLORIDE 109 mmol/L (98-107); GLUCOSE 135 mg/dL (75-110); POTASSIUM 4.2 mmol/L (3.6-5.0); TOTAL PROTEIN 7.7 g/dL (6.3-8.2)
[2019-12-28 12:03] LABS: ALCOHOL < 10 mg/dL (NONE DETECTED)
[2019-12-28 12:09] LABS: ABSOLUTE LYMPHOCYTES# (MANUAL) 0.5 10^3/uL (0.5-4.7); ABSOLUTE MONOCYTES # (MANUAL) 0.3 10^3/uL (0.1-1.4); BAND NEUTROPHILS % (MANUAL) 1 % (3-5); BASOPHILS % (MANUAL) 0 % (0-2); EOSINOPHILS % (MANUAL) 4 % (0-6); LYMPHOCYTES % (MANUAL) 9 % (13-45); METAMYELOCYTES % (MANUAL) 2 % (0-1); MONOCYTES % (MANUAL) 6 % (3-13); SEGMENTED NEUTROPHILS % (MAN) 77 % (42-78); TOTAL CELLS COUNTED 100
[2019-12-28 12:10] LABS: ANISOCYTOSIS 1+
[2019-12-28 12:11] LABS: HYPOCHROMASIA SLIGHT; PLATELET CLUMPS PRESENT; PLATELET COMMENT ADEQUATE; PLATELET LARGE PRESENT
[2019-12-28 12:16] LABS: PLATELET COUNT 181 10^3/uL (150-450)
[2019-12-28 12:29] LABS: APPEARANCE,URINE SLIGHTLY-CLOUDY; BILIRUBIN,URINE NEGATIVE (NEGATIVE); COLOR,URINE YELLOW; GLUCOSE, URINE NEGATIVE (NEGATIVE); KETONES,URINE NEGATIVE (NEGATIVE); LEUKOCYTE ESTERASE,URINE NEGATIVE (NEGATIVE); NITRITE,URINE NEGATIVE (NEGATIVE); PROTEIN,URINE NEGATIVE (NEGATIVE); URINE SPECIFIC GRAVITY 1.009; UROBILINOGEN,URINE NEGATIVE mg/dL (<2.0)
[2019-12-28 12:40] LABS: ARTERIAL BLOOD BASE EXCESS 0.8 mmol/L; ARTERIAL BLOOD FIO2 ROOM AIR; ARTERIAL BLOOD H2CO3 1.33 mmol/L (1.05-1.35); ARTERIAL BLOOD HCO3 26.1 mmol/L (20-24); ARTERIAL BLOOD PCO2 44.2 mmHg (35-45); ARTERIAL BLOOD PH 7.39 (7.35-7.45); ARTERIAL BLOOD PO2 70.7 mmHg (80-100); ARTERIAL BLOOD TOTAL CO2 27.5 mmol/L (23-27)
[2019-12-28 12:48] LABS: URINE AMPHETAMINES SCREEN NEGATIVE; URINE BARBITURATES SCREEN NEGATIVE; URINE COCAINE SCREEN NEGATIVE; URINE MARIJUANA (THC) SCREEN NEGATIVE; URINE METHADONE SCREEN NEGATIVE; URINE PHENCYCLIDINE SCREEN NEGATIVE
[2019-12-28 12:50] LABS: URINE BENZODIAZEPINES SCREEN UNCONFIRMED POSITIVE
--- NOTE | 2019-12-28 12:54 | RADIOLOGY REPORT (SQ) ---
EXAM DESCRIPTION: CT HEAD WITHOUT IMAGES COMPLETED DATE/TIME: 12/28/2019 12:40 pm REASON FOR STUDY: ams COMPARISON: 10/10/2019 TECHNIQUE: Axial images acquired through the brain without intravenous contrast. Images reviewed wi th bone, brain and subdural windows. Additional sagittal and coronal reconstructions were generated. Images stored on PACS. All CT scanners at this facility use dose modulation, iterative reconstruction, and/or weight based d osing when appropriate to reduce radiation dose to as low as reasonably achievable (ALARA). [facility]: Dose Right [facility]: CareDose [facility]: Dose Right [facility]: Teradose 4D [facility]: Smart DesignMyNight RADIATION DOSE: CT Rad equipment meets quality standard of care and radiation dose reduction techniq ues were employed. CTDIvol: 53.2 mGy. DLP: 1017 mGy-cm. LIMITATIONS: None. FINDINGS: VENTRICLES: Normal size and contour. The cisterns are patent. CEREBRUM: No masses. No hemorrhage. No midline shift. No evidence for acute infarction. Normal gra y/white matter differentiation. No areas of low density in the white matter. CEREBELLUM: No masses. No hemorrhage. No alteration of density. No evidence for acute infarction. EXTRAAXIAL SPACES: No fluid collections. No masses. ORBITS AND GLOBE: No intra- or extraconal masses. Normal contour of globe without masses. CALVARIUM: No fracture. PARANASAL SINUSES: Small mucous retention cyst or polyp in the left maxillary sinus and slight mucop eriosteal thickening. Slight to very mild deviation to the left of the midline. Nasal bony spur. N o fluid. SOFT TISSUES: No mass or hematoma. OTHER: The patient is edentulous. IMPRESSION: 1. No significant interval changes since the prior study dated 10/10/2019. No acute intr acranial abnormality. EVIDENCE OF ACUTE STROKE: NO. COMMENT: Quality ID # [id number]: Final reports with documentation of one or more dose reduction techniques (e.g., Automated exposure control, adjustment of the mA and/or kV according to patient size, use of iterative reconstruction technique) TECHNICAL DOCUMENTATION: JOB ID: [id number] 2010 [employer]- All Rights Reserved Reading location - IP/workstation name: [email or web address]
--- NOTE | 2019-12-28 13:08 | EKG REPORT ---
SEVERITY:- ABNORMAL ECG - SINUS RHYTHM LVH WITH SECONDARY REPOLARIZATION ABNORMALITY : Confirmed by: Cricket Pantoja MD 28-Dec-2019 13:08:18
--- NOTE | 2019-12-28 13:40 | RADIOLOGY REPORT (SQ) ---
EXAM DESCRIPTION: CHEST SINGLE VIEW IMAGES COMPLETED DATE/TIME: 12/28/2019 12:22 pm REASON FOR STUDY: ams COMPARISON: 11/02/2019 EXAM PARAMETERS: NUMBER OF VIEWS: One view. TECHNIQUE: Single frontal radiographic view of the chest acquired. RADIATION DOSE: NA LIMITATIONS: None. FINDINGS: LUNGS AND PLEURA: No opacities, masses or pneumothorax. No pleural effusion. MEDIASTINUM AND HILAR STRUCTURES: No masses. Contour normal. HEART AND VASCULAR STRUCTURES: Heart normal in size. Normal vasculature. BONES: No acute findings. HARDWARE: None in the chest. OTHER: No other significant finding. IMPRESSION: NO ACUTE RADIOGRAPHIC FINDING IN THE CHEST. TECHNICAL DOCUMENTATION: JOB ID: [id number] 2010 [employer]- All Rights Reserved Reading location - IP/workstation name: [email or web address]
[2019-12-28 14:44] LABS: ACETAMINOPHEN < 10 ug/mL (10-30); SALICYLATE < 1.0 mg/dL (2.0-20.0)
--- NOTE | 2019-12-28 15:30 | ER Document Report ---
ED General - General Chief Complaint: Altered Mental Status Stated Complaint: ALTERED MENTAL STATUS Time Seen by Provider: 12/28/19 11:56 Primary Care Provider: KASSANDRA PRESTON MD [Primary Care Provider] - Follow up as needed TRAVEL OUTSIDE OF THE [place] IN LAST 30 DAYS: No - HPI Notes: Chief complaint: Altered mental status HPI: 54-year-old male followed by Dr. Preston with history of multiple chronic medical problems transported here via EMS for altered mental status. EMS tells us patient's sister believes that he may have taken too many of his night time medications that consist of but not limited to serquil,vicodin,gabapentin, and some bipolar medication. EMS states that upon their arrival patient was awake. PT was not answering questions appropriately and when asked a questions he would repeat himself several times. We are unable to obtain any history from patient himself at this time due to his altered mental status. I reviewed past medical records at this hospital and find that patient had a very similar presentation in January 2019 and at that time actually had respiratory depression point he required intubation. Extensive work-up after he was admitted to the ICU showed no other specific cause aside from potential ingestion of prescription medications. These were gradually metabolized off over several days and the patient returned to his previous baseline. Review of further medical records indicates a wide array of chronic medical problems. History of diabetes mellitus type 2. Previous gastric bypass. Previous anastomotic ulcer. Essential hypertension Peripheral vascular disease status post previous right BKA Multiple sclerosis Obstructive sleep apnea syndrome - Related Data Allergies/Adverse Reactions: aripiprazole [From [facility]] Adverse Reaction (Severe, Verified 10/12/19 12:29) "uncontrollable muscle tremors" Past Medical History - General Information source: Emergency Med Personnel, [facility] Records Cannot obtain history due to: Altered mental status - Social History Smoking Status: Unknown if Ever Smoked Family History: Reviewed & Not Pertinent, CAD, Hypertension, Other - Past Medical History Cardiac Medical History: Reports: Hx Hypertension Denies: Hx Coronary Artery Disease, Hx Heart Attack, Hx Heart Murmur Pulmonary Medical History: Reports: Hx Pneumonia Denies: Hx Asthma, Hx Bronchitis, Hx COPD Neurological Medical History: Denies: Hx Cerebrovascular Accident, Hx Seizures, Hx Parkinson's Disease Endocrine Medical History: Reports: Hx Diabetes Mellitus Type 2 - Since gastric bypass has been able to stop all medications Renal/ Medical History: Reports: Hx Kidney Stones. Denies: Hx Peritoneal Dialysis GI Medical History: Reports: Hx Gastroesophageal Reflux Disease, Hx Ulcer - 4x. Denies: Hx Pancreatitis Musculoskeletal Medical History: Reports Hx Arthritis, Reports Hx Multiple Sclerosis, Denies Hx Systemic Lupus Erythematosus Skin Medical History: Reports Hx MRSA Psychiatric Medical History: Reports: Hx Bipolar Disorder, Hx Depression Traumatic Medical History: Reports: Hx Fractures - RT ankle 2011 Infectious Medical History: Reports: Hx MRSA Past Surgical History: Reports: Hx Abdominal Surgery - Repair of complications from gastric bypass, Hx Appendectomy - 1975, Hx Bowel Surgery - bowel perforation 09/26/2015, May 2016, Hx Gastric Bypass Surgery - 02/19/13, Hx Orthopedic Surgery - Right below-knee amputation 2013, Hx Tonsillectomy - 1978 - Immunizations Immunizations up to date: Yes Hx Diphtheria, Pertussis, Tetanus Vaccination: Yes Hx Pneumococcal Vaccination: 03/03/11 Review of Systems - Review of Systems -: Yes ROS unobtainable due to patient's medical condition Physical Exam - Vital signs Vitals: Pulse Ox 96 12/28/19 11:54 - Notes Notes: GENERAL: Obese, chronically ill appearing obtunded male. SKIN: Good turgor no rashes. HEAD: Normocephalic atraumatic. EYES: Pupils are small equal and sluggishly reactive to light. Gaze is conjugate conjunctivae and sclerae clear. EARS: CANALS AND TMS CLEAR. NOSE: CLEAR. MOUTH: Moist mucosa. Good dentition. No stridor or edema. No drooling. Throat: Gag reflex intact NECK: Supple. No masses or thyromegaly. No adenopathy. Carotids 2+ without bruits. No JVD. BACK: Symmetrical without tenderness. CHEST: Respirations unlabored. Breath sounds clear and symmetrical. HEART: Regular rhythm. No murmur gallop or rub. ABDOMEN: Soft, obese, nontender without masses, organomegaly or rebound. Multiple surgical scars present. Bowel sounds normally active. No bruits. GENITALIA: Deferred. EXTREMITIES: Right BKA. No calf tenderness. Cap refill less than 1.5 seconds. Dorsalis pedis and posterior tibial pulses 3+ and symmetrical. NEUROLOGICAL: Opens eyes to loud verbal command. Nonsense syllables. GCS 12 (3E+ 3V+ 6M) Alert and oriented x3. Normal gait. Fluent speech. Cranial nerves II through XII intact. Sensorimotor and cerebellar normal. Normal tone. Course - Vital Signs Vital signs: Temp Pulse Resp BP Pulse Ox 96 12/28/19 11:54 - Laboratory Result Diagrams: 12/28/19 11:25 12/28/19 11:25 Laboratory results interpreted by me: 12/28/19 12/28/19 12/28/19 11:25 11:25 11:25 Hgb 12.6 L MCH 26.6 L RDW 16.7 H Band Neutrophils % 1 L Lymphocytes % (Manual) 9 L Metamyelocytes % 2 H ABG pO2 ABG HCO3 ABG Total CO2 Sodium 146.1 H Chloride 109 H Glucose 135 H Alkaline Phosphatase 141 H Salicylates < 1.0 L Acetaminophen < 10 L 12/28/19 12:24 Hgb MCH RDW Band Neutrophils % Lymphocytes % (Manual) Metamyelocytes % ABG pO2 70.7 L ABG HCO3 26.1 H ABG Total CO2 27.5 H Sodium Chloride Glucose Alkaline Phosphatase Salicylates Acetaminophen - Diagnostic Test Radiology reviewed: Reports reviewed - Per radiologist: Chest x-ray shows no active disease. Head CT noncontrast shows no acute changes. - EKG Interpretation by Me Additional EKG results interpreted by me: 12/28/19 15:54 Twelve-lead EKG reviewed by me contemporaneously: 1235 Indication for study: Altered mental status Rhythm: Normal sinus Rate: 62 Intervals: Normal QRS axis: +[address]/T wave changes: None Comparison with prior tracing: Resolution of previous first-degree AV block is noted Interpretation: Left ventricular hypertrophy Discharge - Discharge Clinical Impression: Altered mental status, unspecified Qualifiers: Altered mental status type: unspecified Qualified Code(s): R41.82 - Altered mental status, unspecified Condition: Fair Disposition: ADMITTED INPATIENT Admitting Provider: Savage (Hospitalist) Unit Admitted: IMCU Referrals: KASSANDRA PRESTON MD [Primary Care Provider] - Follow up as needed
[2019-12-28] MEDS ORDERED: MAG HYDROX/AL HYDROX/SIMETH SUSP 30 ML UDCUP PO PRN (17:03)
[2019-12-28] MEDS ORDERED: IPRATROPIUM/ALBUTEROL 0.5-2.5 MG/3 ML AMPUL NEB PRN (17:03)
[2019-12-28] MEDS ORDERED: NORMAL SALINE 1000 ML 1,000 ML IV PRN (17:03)
--- NOTE | 2019-12-28 17:27 | PDOC H&P ---
History of Present Illness Admission Date/PCP: KASSANDRA CARABALLO MD Patient complains of: Change in mental status History of Present Illness: YESSY ALMODOVAR is a 54 year old male who presents emergency room with complaints of change in mental status. He apparently was pretty obtunded on initial presentation however by the time I saw him he was awake and alert although totally confused and had echolalia. I was unable to obtain any information from him. It appears he was recently admitted in October 2019 with left lower lobe pneumonia. He states that patient has a history of multiple sclerosis as well as bipolar disorder Parenta the records as of his last admission patient was awake and oriented x3 with a grossly intact neurological exam Noted to be on Neurontin, Lexapro, baclofen, olanzapine and Vicodin in addition to other medications and there is a suspicion for possible drug overdose unintentionally. EMS apparently found the patient awake but not answering questions appropriately. It appears patient has this kind of presentation back in January 2019 although at that time he also had respiratory depression requiring mechanical ventilation. It was assumed at the time that his symptoms were secondary to prescription medications also and he gradually apparently returned to baseline Past Medical History Cardiac Medical History: Reports: Hypertension Denies: Coronary Artery Disease, Myocardial Infarction, Heart Murmur Pulmonary Medical History: Reports: Pneumonia Denies: Asthma, Bronchitis, Chronic Obstructive Pulmonary Disease (COPD) Neurological Medical History: Denies: Seizures Endocrine Medical History: Reports: Diabetes Mellitus Type 2 - Since gastric bypass has been able to stop all medications Renal/ Medical History: GI Medical History: Reports: Gastroesophageal Reflux Disease Musculoskeltal Medical History: Reports: Arthritis Psychiatric Medical History: Reports: Bipolar Disorder, Depression Hematology: Reports: Anemia Infectious Medical History: Reports: Methicillin-Resistant Staph Aureus Past Surgical History Past Surgical History: Reports: Appendectomy - 1975, Gastric Bypass Surgery - 02/19/13, Orthopedic Surgery - Right below-knee amputation 2013, Tonsillectomy - 1978 Social History Information Source: [facility] Records Smoking Status: Unknown if Ever Smoked Frequency of Alcohol Use: None Hx Recreational Drug Use: No - Unknown Drugs: None Hx Prescription Drug Abuse: No - Advance Directive Resuscitation Status: Full Code - Unable to verify code status as patient confused Family History Family History: Reviewed & Not Pertinent, CAD, Hypertension, Other Parental Family History Reviewed: No Children Family History Reviewed: No Sibling(s) Family History Reviewed.: No - Also obtain information Medication/Allergy Home Medications: Gabapentin [Neurontin 300 mg Capsule] 300 mg PO Q8 02/11/19 Rivaroxaban [Xarelto] 20 mg PO DAILY 02/11/19 Topiramate [Topamax] 50 mg PO Q12 02/11/19 Escitalopram Oxalate [Lexapro 10 mg Tablet] 20 mg PO DAILY 02/12/19 Baclofen [Baclofen 10 mg Tablet] 10 mg PO QHS PRN #10 tablet 10/10/19 Albuterol Sulfate [Proair HFA Inhalation Aerosol 8.5 gm MDI] 1 puff IH Q4HP PRN 10/13/19 Dimethyl Fumarate [Tecfidera] 240 mg PO BID 10/13/19 Famotidine 20 mg PO DAILY 10/13/19 Olanzapine 20 mg PO DAILY 10/13/19 Oxybutynin Chloride [Oxybutynin Chloride ER] 5 mg PO DAILY 10/13/19 Pantoprazole Sodium [Protonix [address] Tablet] 40 mg PO DAILY 10/13/19 Quetiapine Fumarate 300 mg PO BID 10/13/19 Tizanidine HCl [Zanaflex 4 mg Tablet] 8 mg PO TID 10/13/19 Levofloxacin [Levaquin 500 mg Tablet] 500 mg PO DAILY 7 Days #7 tablet 10/14/19 Prednisone [Deltasone 10 mg Tablet] 10 mg PO BID 10 Days #20 tablet 10/14/19 Allergies/Adverse Reactions: aripiprazole [From [facility]] Adverse Reaction (Severe, Verified 10/12/19 12:29) "uncontrollable muscle tremors" Review of Systems ROS unobtainable: Due to mental status Physical Exam Vital Signs: Temp Pulse Resp BP Pulse Ox 23 H 164/98 H 96 12/28/19 13:00 12/28/19 15:49 12/28/19 15:00 Intake & Output 12/27/19 12/28/19 12/29/19 06:59 06:59 06:59 Weight 145.15 kg General appearance: PRESENT: no acute distress, well-developed, well-nourished Head exam: PRESENT: atraumatic, normocephalic Eye exam: PRESENT: conjunctiva pink, EOMI, other - pin point. ABSENT: scleral icterus Ear exam: PRESENT: normal external ear exam Mouth exam: PRESENT: moist, tongue midline Neck exam: ABSENT: carotid bruit, JVD, lymphadenopathy, thyromegaly Respiratory exam: PRESENT: clear to auscultation jorge. ABSENT: rales, rhonchi, wheezes Cardiovascular exam: PRESENT: RRR, +S1, +S2. ABSENT: diastolic murmur, rubs, systolic murmur Pulses: PRESENT: normal dorsalis pedis pul Vascular exam: PRESENT: normal capillary refill GI/Abdominal exam: PRESENT: normal bowel sounds, soft. ABSENT: distended, guarding, mass, organolmegaly, rebound, tenderness Rectal exam: PRESENT: deferred Extremities exam: PRESENT: full ROM, other - Right below-knee amputation. ABSENT: calf tenderness, clubbing, pedal edema Neurological exam: PRESENT: alert, awake. ABSENT: motor sensory deficit Psychiatric exam: PRESENT: homicidal ideation Focused psych exam: PRESENT: pressured speech, other - Echolalia Skin exam: PRESENT: dry, intact, warm. ABSENT: cyanosis, rash Results Laboratory Results: 12/28/19 11:25 12/28/19 11:25 12/28/19 12/28/19 12/28/19 11:25 11:25 11:50 WBC 5.4 RBC 4.74 Hgb 12.6 L Hct 38.0 MCV 80 MCH 26.6 L MCHC 33.2 RDW 16.7 H Plt Count 181 Seg Neutrophils % Not Reportable Carbonic Acid HCO3/H2CO3 Ratio ABG pH ABG pCO2 ABG pO2 ABG HCO3 ABG O2 Saturation ABG Base Excess FiO2 Sodium 146.1 H Potassium 4.2 Chloride 109 H Carbon Dioxide 24 Anion Gap 13 BUN 11 Creatinine 1.02 Est GFR ( Amer) > 60 Glucose 135 H Calcium 9.8 Magnesium 1.8 Total Bilirubin 0.7 AST 37 Alkaline Phosphatase 141 H Ammonia Total Protein 7.7 Albumin 4.3 Urine Color YELLOW Urine Appearance SLIGHTLY-CLOUDY Urine pH 6.0 Ur Specific Kyle 1.009 Urine Protein NEGATIVE Urine Glucose (UA) NEGATIVE Urine Ketones NEGATIVE Urine Blood NEGATIVE Urine Nitrite NEGATIVE Ur Leukocyte Esterase NEGATIVE Urine WBC (Auto) 1 Urine RBC (Auto) 1 12/28/19 12/28/19 12:24 12:24 WBC RBC Hgb Hct MCV MCH MCHC RDW Plt Count Seg Neutrophils % Carbonic Acid 1.33 HCO3/H2CO3 Ratio 19:1 ABG pH 7.39 ABG pCO2 44.2 ABG pO2 70.7 L ABG HCO3 26.1 H ABG O2 Saturation 94.0 ABG Base Excess 0.8 FiO2 ROOM AIR Sodium Potassium Chloride Carbon Dioxide Anion Gap BUN Creatinine Est GFR ( Amer) Glucose Calcium Magnesium Total Bilirubin AST Alkaline Phosphatase Ammonia 30.5 Total Protein Albumin Urine Color Urine Appearance Urine pH Ur Specific Kyle Urine Protein Urine Glucose (UA) Urine Ketones Urine Blood Urine Nitrite Ur Leukocyte Esterase Urine WBC (Auto) Urine RBC (Auto) Impressions: Head CT 12/28/19 12:02 IMPRESSION: 1. No significant interval changes since the prior study dated 10/10/2019. No acute intracranial abnormality. EVIDENCE OF ACUTE STROKE: NO. Chest X-Ray 12/28/19 12:56 IMPRESSION: NO ACUTE RADIOGRAPHIC FINDING IN THE CHEST. Assessment and Plan - Diagnosis (1) Altered mental status Qualifiers: Altered mental status type: unspecified Qualified Code(s): R41.82 - Altered mental status, unspecified Is this a current diagnosis for this admission?: Yes (2) Encephalopathy acute Is this a current diagnosis for this admission?: Yes Plan: Etiology is not quite clear but at this point suspect possible drug adverse effect or overdose. This apparently occurred before in 2019. There is no evidence of any respiratory depression. At the most complaints symptoms patient's echolalia. We will hold his possibly offending medications and reevaluate in a.m. If necessary further consultations will be obtained. - Plan Summary Summary: Labs are otherwise stable - Time Time Spent with patient: 15-24 minutes Medications reviewed and adjusted accordingly: Yes Anticipated Discharge Disposition: Home, Self Care Anticipated Discharge Timeframe: within 48 hours
[2019-12-28] MEDS ORDERED: OLANZAPINE 20 MG PO SCH (22:00)
[2019-12-28] MEDS ORDERED: FAMOTIDINE 20 MG TABLET PO SCH (22:00)
[2019-12-28] MEDS ORDERED: OLANZAPINE 5 MG TABLET PO SCH (22:00)
[2019-12-28] MEDS ORDERED: FAMOTIDINE 20 MG PO SCH (22:00)
[2019-12-28] MEDS: ONDANSETRON HCL INJ/PF 4 MG/2 ML SDV IV PRN (23:31)
[2019-12-29] MEDS: ACETAMINOPHEN 325 MG TABLET PO PRN ×3 (00:58→13:03)
[2019-12-29 07:39] LABS: HEMATOCRIT 34.1 % (37.9-51.0); HEMOGLOBIN 11.4 g/dL (13.5-17.0); MEAN CORPUSCULAR HEMOGLOBIN 26.6 pg (27.0-33.4); MEAN CORPUSCULAR HGB CONC 33.4 g/dL (32.0-36.0); MEAN CORPUSCULAR VOLUME 80 fl (80-97); PLATELET COUNT 183 10^3/uL (150-450); RED BLOOD COUNT 4.28 10^6/uL (4.35-5.55); RED CELL DISTRIBUTION WIDTH 16.5 % (11.5-14.0); WHITE BLOOD COUNT 5.4 10^3/uL (4.0-10.5)
[2019-12-29 07:55] LABS: ANION GAP 12 (5-19); BLOOD UREA NITROGEN 9 mg/dL (7-20); CARBON DIOXIDE 20 mmol/L (22-30); CHLORIDE 109 mmol/L (98-107); GLUCOSE 105 mg/dL (75-110); POTASSIUM 3.7 mmol/L (3.6-5.0)
[2019-12-29] MEDS ORDERED: RIVAROXABAN 10 MG TABLET PO SCH (08:00)
[2019-12-29 08:22] LABS: ABSOLUTE LYMPHOCYTES# (MANUAL) 0.7 10^3/uL (0.5-4.7); ABSOLUTE MONOCYTES # (MANUAL) 0.2 10^3/uL (0.1-1.4); BASOPHILS % (MANUAL) 0 % (0-2); EOSINOPHILS % (MANUAL) 4 % (0-6); LYMPHOCYTES % (MANUAL) 13 % (13-45); MONOCYTES % (MANUAL) 4 % (3-13); SEGMENTED NEUTROPHILS % (MAN) 79 % (42-78); TOTAL CELLS COUNTED 100
[2019-12-29 08:24] LABS: PLATELET COMMENT ADEQUATE; RBC MORPHOLOGY COMMENT NORMO-CYTIC/CHROMIC
[2019-12-29] MEDS: ONDANSETRON HCL INJ/PF 4 MG/2 ML SDV IV PRN (08:42)
[2019-12-29] MEDS ORDERED: DOCUSATE SODIUM 100 MG CAPSULE PO SCH (10:00)
--- NOTE | 2019-12-29 13:29 | PDOC DISCHARGE SUMMARY ---
Impression - Admit/DC Date/PCP Admission Date/Primary Care Provider: 12/28/19 17:17 KASSANDRA CARABALLO MD Discharge Date: 12/29/19 - Discharge Diagnosis (1) Altered mental status Is this a current diagnosis for this admission?: Yes (2) Encephalopathy acute Is this a current diagnosis for this admission?: Yes (3) Accidental drug overdose Is this a current diagnosis for this admission?: Yes - Assessment Summary: Acidosis at discharge probably just reflect his drug overdose - Additional Information Resuscitation Status: Full Code - Unable to verify code status as patient confused Discharge Activity: Activity As Tolerated Referrals: KASSANDRA CARABALLO MD [Primary Care Provider] - 01/10/20 1:15 pm Home Medications: Gabapentin [Neurontin 300 mg Capsule] 300 mg PO Q8 02/11/19 Rivaroxaban [Xarelto] 20 mg PO QAM 02/11/19 Topiramate [Topamax] 50 mg PO Q12 02/11/19 Escitalopram Oxalate [Lexapro 10 mg Tablet] 20 mg PO QAM 02/12/19 Famotidine 20 mg PO QHS 10/13/19 Olanzapine 20 mg PO QHS 10/13/19 Oxybutynin Chloride [Oxybutynin Chloride ER] 5 mg PO QHS 10/13/19 Pantoprazole Sodium [Protonix [address] Tablet] 40 mg PO Q6AM 10/13/19 Quetiapine Fumarate 600 mg PO QHS 10/13/19 Tizanidine HCl [Zanaflex 4 mg Tablet] 12 mg PO TID 10/13/19 Baclofen [Baclofen 10 mg Tablet] 20 mg PO Q8 12/28/19 Hydrocodone/Acetaminophen [[place] 5-325 mg Tablet] 1 tab PO Q6HP PRN 12/28/19 Meclizine HCl [Antivert 25 mg Tablet] 25 mg PO Q8HP PRN 12/28/19 Additional Information: Patient needs close monitoring and observation to ensure proper medication usage and prevent accidental overdose History of Present Illiness History of Present Illness: YESSY ALMODOVAR is a 54 year old male who presents emergency room with complaints of change in mental status. He apparently was pretty obtunded on initial presentation however by the time I saw him he was awake and alert although totally confused and had echolalia. I was unable to obtain any information from him. It appears he was recently admitted in October 2019 with left lower lobe pneumonia. He states that patient has a history of multiple sclerosis as well as bipolar disorder Parenta the records as of his last admission patient was awake and oriented x3 with a grossly intact neurological exam Noted to be on Neurontin, Lexapro, baclofen, olanzapine and Vicodin in addition to other medications and there is a suspicion for possible drug overdose unintentionally. EMS apparently found the patient awake but not answering questions appropriately. It appears patient has this kind of presentation back in January 2019 although at that time he also had respiratory depression requiring mechanical ventilation. It was assumed at the time that his symptoms were secondary to prescription medications also and he gradually apparently returned to baseline Hospital Course Hospital Course: Patient was admitted yesterday with a change in mental status. It was felt that he probably had a drug overdose, accidental. Patient was very confused yesterday but today was awake and alert and he did tell me that he took both his morning doses as well as his evening doses because he was somewhat confused. I did advise patient to make sure that he 6 help from his sister and [id number] who lives with if needed. Patient appears to be back to his baseline today. At this time there is no further intervention being planned with hemodynamic stability and resolution of his presenting symptoms he is being discharged home Physical Exam Vital Signs: Temp Pulse Resp BP Pulse Ox 98.8 F 80 16 157/89 H 97 12/29/19 09:59 12/29/19 11:08 12/29/19 11:08 12/29/19 07:52 12/29/19 11:08 Intake & Output 12/28/19 12/29/19 12/30/19 06:59 06:59 06:59 Intake Total 880 Output Total 1400 Balance -520 Weight 126.5 kg General appearance: PRESENT: no acute distress, well-developed, well-nourished Head exam: PRESENT: atraumatic, normocephalic Eye exam: PRESENT: conjunctiva pink, EOMI, PERRLA. ABSENT: scleral icterus Ear exam: PRESENT: normal external ear exam Mouth exam: PRESENT: moist, tongue midline Neck exam: ABSENT: carotid bruit, JVD, lymphadenopathy, thyromegaly Respiratory exam: PRESENT: clear to auscultation jorge. ABSENT: rales, rhonchi, wheezes Cardiovascular exam: PRESENT: RRR, +S1, +S2. ABSENT: diastolic murmur, rubs, systolic murmur Pulses: PRESENT: normal dorsalis pedis pul Vascular exam: PRESENT: normal capillary refill GI/Abdominal exam: PRESENT: normal bowel sounds, soft. ABSENT: distended, guarding, mass, organolmegaly, rebound, tenderness Rectal exam: PRESENT: deferred Extremities exam: PRESENT: other - R BKA. ABSENT: calf tenderness, clubbing, pedal edema Neurological exam: PRESENT: alert, awake, oriented to person, oriented to place, oriented to time, oriented to situation, CN II-XII grossly intact. ABSENT: motor sensory deficit Psychiatric exam: PRESENT: appropriate affect, normal mood. ABSENT: homicidal ideation, suicidal ideation Skin exam: PRESENT: dry, intact, warm. ABSENT: cyanosis, rash Results Laboratory Results: WBC 5.4 10^3/uL (4.0-10.5) 12/29/19 06:19 RBC 4.28 10^6/uL (4.35-5.55) L 12/29/19 06:19 Hgb 11.4 g/dL (13.5-17.0) L 12/29/19 06:19 Hct 34.1 % (37.9-51.0) L 12/29/19 06:19 MCV 80 fl (80-97) 12/29/19 06:19 MCH 26.6 pg (27.0-33.4) L 12/29/19 06:19 MCHC 33.4 g/dL (32.0-36.0) 12/29/19 06:19 RDW 16.5 % (11.5-14.0) H 12/29/19 06:19 Plt Count 183 10^3/uL (150-450) 12/29/19 06:19 Lymph % (Auto) Not Reportable 12/29/19 06:19 [place] % (Auto) Not Reportable 12/29/19 06:19 Eos % (Auto) Not Reportable 12/29/19 06:19 Baso % (Auto) Not Reportable 12/29/19 06:19 Absolute Neuts (auto) Not Reportable 12/29/19 06:19 Absolute Lymphs (auto) Not Reportable 12/29/19 06:19 Absolute Monos (auto) Not Reportable 12/29/19 06:19 Absolute Eos (auto) Not Reportable 12/29/19 06:19 Absolute Basos (auto) Not Reportable 12/29/19 06:19 Total Counted 100 12/29/19 06:19 Seg Neutrophils % Not Reportable 12/29/19 06:19 Seg Neuts % (Manual) 79 % (42-78) H 12/29/19 06:19 Band Neutrophils % 1 % (3-5) L 12/28/19 11:25 Lymphocytes % (Manual) 13 % (13-45) 12/29/19 06:19 Atypical Lymphs % 1 % (0) 12/28/19 11:25 Monocytes % (Manual) 4 % (3-13) 12/29/19 06:19 Eosinophils % (Manual) 4 % (0-6) 12/29/19 06:19 Basophils % (Manual) 0 % (0-2) 12/29/19 06:19 Metamyelocytes % 2 % (0-1) H 12/28/19 11:25 Abs Neuts (Manual) 4.3 10^3/uL (1.7-8.2) 12/29/19 06:19 Abs Lymphs (Manual) 0.7 10^3/uL (0.5-4.7) 12/29/19 06:19 Abs Monocytes (Manual) 0.2 10^3/uL (0.1-1.4) 12/29/19 06:19 Absolute Eos (Manual) 0.2 10^3/uL (0.0-0.6) 12/29/19 06:19 Abs Basophils (Manual) 0.0 10^3/uL (0.0-0.2) 12/29/19 06:19 Clumped Platelets PRESENT 12/28/19 11:25 Large Platelets PRESENT 12/28/19 11:25 Platelet Comment ADEQUATE 12/29/19 06:19 Hypochromasia SLIGHT 12/28/19 11:25 Anisocytosis 1+ 12/28/19 11:25 Microcytosis SLIGHT 12/28/19 11:25 RBC Morph Comment NORMO-CYTIC/CHROMIC 12/29/19 06:19 Carbonic Acid 1.33 mmol/L (1.05-1.35) 12/28/19 12:24 HCO3/H2CO3 Ratio 19:1 12/28/19 12:24 ABG pH 7.39 (7.35-7.45) 12/28/19 12:24 ABG pCO2 44.2 mmHg (35-45) 12/28/19 12:24 ABG pO2 70.7 mmHg (80-100) L 12/28/19 12:24 ABG HCO3 26.1 mmol/L (20-24) H 12/28/19 12:24 ABG Total CO2 27.5 mmol/L (23-27) H 12/28/19 12:24 ABG O2 Saturation 94.0 % (94-98) 12/28/19 12:24 ABG Base Excess 0.8 mmol/L 12/28/19 12:24 FiO2 ROOM AIR 12/28/19 12:24 Sodium 141.3 mmol/L (137-145) 12/29/19 06:19 Potassium 3.7 mmol/L (3.6-5.0) 12/29/19 06:19 Chloride 109 mmol/L (98-107) H 12/29/19 06:19 Carbon Dioxide 20 mmol/L (22-30) L 12/29/19 06:19 Anion Gap 12 (5-19) 12/29/19 06:19 BUN 9 mg/dL (7-20) 12/29/19 06:19 Creatinine 0.92 mg/dL (0.52-1.25) 12/29/19 06:19 Est GFR ( Amer) > 60 (>60) 12/29/19 06:19 Est GFR (MDRD) Non-Af > 60 (>60) 12/29/19 06:19 Glucose 105 mg/dL (75-110) 12/29/19 06:19 POC Glucose 131 mg/dL (70-110) H 12/29/19 11:49 Calcium 9.0 mg/dL (8.4-10.2) 12/29/19 06:19 Magnesium 1.8 mg/dL (1.6-2.3) 12/28/19 11:25 Total Bilirubin 0.7 mg/dL (0.2-1.3) 12/28/19 11:25 Direct Bilirubin 0.2 mg/dL (0.0-0.4) 12/28/19 11:25 Neonat Total Bilirubin Not Reportable 12/28/19 11:25 Neonat Direct Bilirubin Not Reportable 12/28/19 11:25 Neonat Indirect Bili Not Reportable 12/28/19 11:25 AST 37 U/L (17-59) 12/28/19 11:25 ALT 32 U/L (<50) 12/28/19 11:25 Alkaline Phosphatase 141 U/L (38-126) H 12/28/19 11:25 Ammonia 14.9 umol/L (9-33) 12/29/19 12:04 Total Protein 7.7 g/dL (6.3-8.2) 12/28/19 11:25 Albumin 4.3 g/dL (3.5-5.0) 12/28/19 11:25 Urine Color YELLOW 12/28/19 11:50 Urine Appearance SLIGHTLY-CLOUDY 12/28/19 11:50 Urine pH 6.0 (5.0-9.0) 12/28/19 11:50 Ur Specific [place] 1.009 12/28/19 11:50 Urine Protein NEGATIVE mg/dL (NEGATIVE) 12/28/19 11:50 Urine Glucose (UA) NEGATIVE mg/dL (NEGATIVE) 12/28/19 11:50 Urine Ketones NEGATIVE mg/dL (NEGATIVE) 12/28/19 11:50 Urine Blood NEGATIVE (NEGATIVE) 12/28/19 11:50 Urine Nitrite NEGATIVE (NEGATIVE) 12/28/19 11:50 Urine Bilirubin NEGATIVE (NEGATIVE) 12/28/19 11:50 Urine Urobilinogen NEGATIVE mg/dL (<2.0) 12/28/19 11:50 Ur Leukocyte Esterase NEGATIVE (NEGATIVE) 12/28/19 11:50 Urine WBC (Auto) 1 /HPF 12/28/19 11:50 Urine RBC (Auto) 1 /HPF 12/28/19 11:50 U Hyaline Cast (Auto) 1 /LPF 12/28/19 11:50 Urine Mucus (Auto) RARE /LPF 12/28/19 11:50 Urine Ascorbic Acid NEGATIVE (NEGATIVE) 12/28/19 11:50 Salicylates < 1.0 mg/dL (2.0-20.0) L 12/28/19 11:25 Urine Opiates Screen NEGATIVE 12/28/19 11:50 Urine Methadone Screen NEGATIVE 12/28/19 11:50 Acetaminophen < 10 ug/mL (10-30) L 12/28/19 11:25 Ur Barbiturates Screen NEGATIVE 12/28/19 11:50 Ur Phencyclidine Scrn NEGATIVE 12/28/19 11:50 Ur Amphetamines Screen NEGATIVE 12/28/19 11:50 U Benzodiazepines Scrn UNCONFIRMED POSITIVE 12/28/19 11:50 Urine Cocaine Screen NEGATIVE 12/28/19 11:50 U Marijuana (THC) Screen NEGATIVE 12/28/19 11:50 Serum Alcohol < 10 mg/dL (NONE DETECTED) 12/28/19 11:25 Impressions: Head CT 12/28/19 12:02 IMPRESSION: 1. No significant interval changes since the prior study dated . No acute intracranial abnormality. EVIDENCE OF ACUTE STROKE: NO. Chest X-Ray 12/28/19 12:56 IMPRESSION: NO ACUTE RADIOGRAPHIC FINDING IN THE CHEST. Stroke Is this a Stroke Patient?: No Acute Heart Failure Is this a Heart Failure Patient?: No
[2019-12-29 16:53] VITALS: BP 165/94
== END 2019-12-29 17:09 | disposition home or self-care (01) ==
LOC: ER 11:07 → EH 17:17 → INTOOBSV 17:17 → 3S 20:44
PROVIDERS: ADMIT Internal Medicine; ATTEND Internal Medicine
DX: R41.82 Altered mental status, unspecified (principal); G93.40 Encephalopathy, unspecified; I10 Essential (primary) hypertension; E11.9 Type 2 diabetes mellitus without complications; R48.8 Other symbolic dysfunctions; G35 Multiple sclerosis; F31.9 Bipolar disorder, unspecified; Z88.8 Allergy status to other drugs, medicaments and biological substances; Z79.899 Other long term (current) drug therapy; Z98.84 Bariatric surgery status
CPT/HCPCS: 93005; 99285; 36415 ×2; 82962 ×2; 80307 ×4; 82140 ×2; 82803; 83735; 85025 ×2; 80048; 80053; 81001; 71045; 70450; 93010; 94640; G0378; A9270 ×5; J2405 ×2; J7030

== ENCOUNTER → 2020-01-18 | Outpatient (CLI) | payer MEDICARE, MEDICAID ==
--- NOTE | 2020-01-18 11:48 | ER RDC ASSESSMENT REPORT ---
Intake - In the Last 14 days Have you traveled outside [place]?: No Have you been in close contact with someone CONFIRMED: Yes Worked in Healthcare?: No - Symptoms Subjective Fever(Robert feverish): Yes Chills: Yes Muscule Aches: Yes Runny Nose: Yes Sore Throat: Yes Cough (New or worsening chronic cough): Yes Shortness of breath: Yes Nausea or Vomiting: No Headache: No Abdominal Pain: No Diarrhea(3 or more loose stools in last 24 hours): Yes - Do you have any of the following Chronic lung disease: Asthma or emphysema or COPD: No Cystic Fibrosis: No Diabetes: No High Blood Pressure: No Cardiovascular Disease: No Chronic Kidney Disease: No Chronic Liver Disease: No Chronic blood disorder like Sickle Cell Disease: No Weak immune system due to disease or medication: No Neurologic condition that limits movement: Yes Neurological Condition Comment: MS Developmental delay - Moderate to Severe: No Recent (within past 2 weeks) or current : No Morbid Obesity (>100 pounds over ideal weight): No - Objective Temperature: 98.1 F Pulse Rate: 52 Respiratory Rate: 16 Blood Pressure: 111/70 O2 Sat by Pulse Oximetry: 97 Objective: Given above, testing performed: If Testing Performed: Test Specimen Type Sent to General - General Information source: Patient Notes: Patient presents for screening for the coronavirus. Patient was recently exposed to someone who did test positive. Patient has underlying history of MS. Patient reports fever chills body aches runny nose cough and sore throat. Patient is also had some diarrhea. - Related Data Allergies/Adverse Reactions: aripiprazole [From Abilify] Adverse Reaction (Severe, Verified 10/12/19 12:29) "uncontrollable muscle tremors" Past Medical History - General Information source: Patient - Social History Smoking Status: Never Smoker Family History: Reviewed & Not Pertinent, CAD, Hypertension, Other - Past Medical History Cardiac Medical History: Denies: Hx Coronary Artery Disease, Hx Heart Attack, Hx Heart Murmur Pulmonary Medical History: Reports: Hx Pneumonia Denies: Hx Asthma, Hx Bronchitis, Hx COPD Neurological Medical History: Denies: Hx Cerebrovascular Accident, Hx Seizures, Hx Parkinson's Disease Endocrine Medical History: Renal/ Medical History: Reports: Hx Kidney Stones. Denies: Hx Peritoneal Dialysis GI Medical History: Reports: Hx Gastroesophageal Reflux Disease, Hx Ulcer - 4x. Denies: Hx Pancreatitis Musculoskeletal Medical History: Reports Hx Arthritis, Reports Hx Multiple Sclerosis, Denies Hx Systemic Lupus Erythematosus Skin Medical History: Reports Hx MRSA Psychiatric Medical History: Reports: Hx Bipolar Disorder, Hx Depression Traumatic Medical History: Reports: Hx Fractures - RT ankle 2010 Infectious Medical History: Reports: Hx MRSA Past Surgical History: Reports: Hx Abdominal Surgery - Repair of complications from gastric bypass, Hx Appendectomy - 1975, Hx Bowel Surgery - bowel perforation 09/26/2015, May 2016, Hx Gastric Bypass Surgery - 02/19/13, Hx Orthopedic Surgery - Right below-knee amputation 2013, Hx Tonsillectomy - 1978 Physical Exam - Notes Notes: The patient was evaluated during the global Covid 19 pandemic, and that diagnosis was suspected/considered upon their initial presentation. Their evaluation, treatment and testing was consistent with current guidelines for patients who present with complaints or symptoms that may be related to Covid 19. Full physical exam could not be performed due to covid 19 isolation protocols. Constitutional: Nontoxic appearance, no acute distress Eyes: Nonicteric, extraocular movements intact, sclera clear ENT: Posterior pharynx erythematous, no exudates Cardiovascular: Heart rate and rhythm regular, no JVD Respiratory: Scattered wheezing bilaterally, nonlabored breathing, no use of accessory muscles, no tachypnea Gastrointestinal: Abdomen not distended Muculoskeletal: Moves all extremities well Skin: Normal color Neuro: Awake alert oriented, normal speech Psych: Normal mood and affect Diagnostic Results Laboratory Results: Patient presents with upper respiratory symptoms worrisome for possible Covid 19. Patient appears suitable for discharge as vital signs are stable and patient is nontoxic in appearance. Good return precautions have been discussed with patient, patient verbalized understanding and is agreeable with discharge plan of care at this time. Patient Education/Counseling Counseling/Education: Patient was provided with discharge information including: As a person under investigation for Covid 19, the [place] department of Health and Human Services, division of public health advises you to adhere to the following guidance until your test results are reported to you. If your test result is positive, you will receive additional information from your provider and your local health department at that time. Remain at home until you are cleared by the health provider or public health authorities. Keep a log of visitors to your home, notify any visitors to your home of your isolation status. If you plan to move to a new address or leave the county, notify the local health department in your County. Call your doctor or seek care if you have an urgent medical need. Before seeking medical care, call ahead to get instructions from the provider before arriving at the medical office clinic or hospital. Notify them that you are being tested for the virus that causes Covid 19 so that arrangements can be made, as necessary, to prevent transmission to others in the healthcare setting. Next, notify the local health department in your county. If a medical emergency arises and you need to call 911, inform the first responders that you are being tested for the virus that causes Covid 19. Next, notify the local health department in your county. RDC Discharge - Discharge Clinical Impression: Encounter for screening laboratory testing for COVID-19 virus Condition: Stable Disposition: Home; Selfcare
[2020-01-18 11:59] VITALS: BP 111/70
[2020-01-18 13:44] LABS: A TYPE INFLUENZA AG NEGATIVE (NEGATIVE); B INFLUENZA AG NEGATIVE (NEGATIVE)
== END ==
LOC: RDC 11:12
PROVIDERS: ATTEND Nurse Practitioner Family
DX: U07.1 COVID-19 (principal)
CPT/HCPCS: 87070; 87880; 87804; 99211; U0003; G0463; C9803; 87635

== ENCOUNTER → 2020-01-26 | Outpatient (CLI) | payer MEDICARE, MEDICAID ==
[2020-01-26 13:08] LABS: CREATINE KINASE 43 U/L (55-170)
== END ==
LOC: OD 10:34
DX: J84.9 Interstitial pulmonary disease, unspecified (principal)
CPT/HCPCS: 36415; 82550; 84681; 86160; 86225; 86431

== ENCOUNTER → 2020-03-21 | Outpatient (CLI) | payer MEDICARE, MEDICAID ==
[2020-03-21 11:09] LABS: ABSOLUTE EOSINOPHILS # (AUTO) 0.2 10^3/uL (0.0-0.6); ABSOLUTE LYMPHOCYTES (AUTO) 0.5 10^3/uL (0.5-4.7); ABSOLUTE MONOCYTES (AUTO) 0.5 10^3/uL (0.1-1.4); ABSOLUTE NEUT (AUTO) 3.2 10^3/uL (1.7-8.2); BASOPHILS % (AUTO) 0.3 % (0-2); EOSINOPHILS % (AUTO) 5.3 % (0-6); HEMATOCRIT 38.5 % (37.9-51.0); LYMPHOCYTES % (AUTO) 11.9 % (13-45); MEAN CORPUSCULAR HGB CONC 33.8 g/dL (32.0-36.0); MEAN CORPUSCULAR VOLUME 80 fl (80-97); MONOCYTES % (AUTO) 10.6 % (3-13); PLATELET COUNT 170 10^3/uL (150-450); RED BLOOD COUNT 4.81 10^6/uL (4.35-5.55); SEGMENTED NEUTROPHILS % (AUTO) 71.9 % (42-78); TOTAL CELLS COUNTED % (AUTO) 100 %; WHITE BLOOD COUNT 4.4 10^3/uL (4.0-10.5)
[2020-03-21 11:35] LABS: ALBUMIN 4.5 g/dL (3.5-5.0); ALKALINE PHOSPHATASE 66 U/L (38-126); ANION GAP 9 (5-19); ASPARTATE AMINO TRANSFERASE 30 U/L (17-59); BILIRUBIN,DIRECT 0.2 mg/dL (0.0-0.4); BILIRUBIN,TOTAL 0.6 mg/dL (0.2-1.3); BLOOD UREA NITROGEN 8 mg/dL (7-20); CALCIUM 9.8 mg/dL (8.4-10.2); CARBON DIOXIDE 23 mmol/L (22-30); CHLORIDE 107 mmol/L (98-107); GLUCOSE 116 mg/dL (75-110); POTASSIUM 4.6 mmol/L (3.6-5.0); TOTAL PROTEIN 7.6 g/dL (6.3-8.2)
== END ==
LOC: OD 09:51
PROVIDERS: ATTEND Family Medicine Geriatric Medicine
DX: I10 Essential (primary) hypertension (principal); G35 Multiple sclerosis; Z95.810 Presence of automatic (implantable) cardiac defibrillator; Z79.899 Other long term (current) drug therapy
CPT/HCPCS: 36415; 80053; 85025